=== PATIENT | female | born 1955 | race Caucasian/White ===

== ENCOUNTER → 2023-05-03 | Outpatient (CLI) | payer OTHER, SELFPAY ==
--- NOTE | 2023-05-03 08:11 | CR.HP_ITS ---
CR - History & Physical - General Arrival date:: 05/03/23 Arrival time:: 08:05 Date of Referral:: 04/21/23 Date of CR Evaluation:: 05/03/23 Referring Physician: Dr. Lenny GRACE-Radha Primary Diagnosis: STEMI, PCI w/coroanry stenting - History of Present Cardiac Event Onset Date: Enter Onset Date of cardiac illnesses in Comment field below Acute Myocardial Infarction within 12 months:: Yes - ST elevated myocardial infarction PTCA or coronary stenting:: Yes - PCI w/placement of coronary stent Vessel: Stent was placed in the LAD Type of Symptoms:: Tightness through the shoulders and upper back and down the arm to the elbow similar to muscle spasms would not let up, thought related to the herniated cervical disc. Interventions with present event:: Drove self-to the emergency room Were there any complications?: Pericardial effusion, cardiac carditis - Sleep Disorder Evaluation Hx of Sleep Apnea: Yes Do you snore loudly (louder than talking or can be heard through closed doors)?: Yes - test ed at [facility] supposed to use CPAP but is not using it Do you often feel tired/ fatigued/ sleepy during daytime?: Yes Has anyone observed you stop breathing during sleep?: Yes - sleep report shoed apnea 100 times History of Hypertension (for STOP score): Yes STOP Results: Positive - Medications Home Medications: Ambulatory Orders Medication Instructions Recorded aspirin 81 mg tablet,delayed 81 mg PO DAILY 05/03/23 release carvedilol 6.25 mg tablet (Coreg) 6.25 mg PO BID 05/03/23 clopidogrel 75 mg tablet (Plavix) 75 mg PO DAILY 05/03/23 colchicine 0.6 mg tablet 0.6 mg PO BID 05/03/23 dapagliflozin propanediol 5 mg 5 mg PO DAILY 05/03/23 tablet (Farxiga) fexofenadine 180 mg tablet 180 mg PO Q24H 05/03/23 insulin aspart U-100 100 unit/mL 15 unit subcut TID 05/03/23 subcutaneous solution insulin degludec 100 unit/mL 50 unit subcut DAILY 05/03/23 subcutaneous solution (Tresiba U-100 Insulin) nitroglycerin 0.4 mg sublingual 0.4 mg sublingual Q5M PRN Chest 05/03/23 tablet Pain pantoprazole 40 mg tablet,delayed 40 mg PO DAILY 05/03/23 release (Protonix) rosuvastatin 40 mg tablet (Crestor) 40 mg PO DAILY 05/03/23 sacubitril 24 mg-valsartan 26 mg 1 tab PO BID 05/03/23 tablet (Entresto) spironolactone 25 mg tablet 25 mg PO DAILY 05/03/23 (Aldactone) - Allergies Allergies/Adverse Reactions: Allergies animal dander Allergy (Verified 05/03/23 08:24) Other Corticosteroids (Glucocorticoids) [steroids] Allergy (Verified 05/03/23 08:24) Hives sumatriptan [From Imitrex] Allergy (Verified 05/03/23 08:24) Pain in joints Advanced Directives - Advanced Directives Power of Data Analytics Chief Scientist: No Living Will: No Advance Directives Information Provided: Yes Advance Directives on File: No DNR Order?:: No - MOLST See MOLST form: No Past Medical History - Covid-19 Screening Fever: No - hysterectomy but still has ovoaries experiences hot flashes then coldness Unexplained muscle aches: No Current respiratory symptoms: Yes - chronic rhinitis from allergies Upper respiratory infections symptoms: No Gastro-intestinal symptoms: No Gec-Zhlf-Ennabm symptoms: No Has tested positive for COVID-19 in last 30 days: No Date of testin05/03/23 - fully vaccinated Had contact w/person w/symptoms or Covid-19 (+) last 14 days: No Has High Risk Exposures ID'd by Health dept/Inf Control team: No 65 years or older:: Yes Lives in Assisted Living facility:: No Has a chronic lung disease or moderate to severe asthma:: No Has a serious heart condition:: No Immunocompromised:: No Severely obese (Body Mass Index of 40 or higher):: No Diabetic:: Yes Has chronic kidney disease undergoing dialysis:: No Has liver disease:: No - Past Medical Illness Medical History: Past Medical History (Last Updated 05/03/23 @ 08:46 by Oren Ramos, HANDICRAFTS TEACHER, JAVA WEB DEVELOPER, BS) Acute systolic heart failure I50.21 Arthritis M19.90 pretty bad in the back and cervical area Asthma J45.909 Chronic migraine Degenerative disc disease, cervical M50.30 Dyslipidemia E78.5 FH: cholecystectomy Z83.79 Herniated disc, cervical M50.20 History of placement of stent in LAD coronary artery Z95.5 Hypertension I10 Non-STEMI (non-ST elevated myocardial infarction) I21.4 Obstructive sleep apnea on CPAP G47.33 Pericardial effusion I31.39 Thyroid nodule E04.1 Type II diabetes mellitus E11.9 - Past Surgical History Surgical History: Past Surgical History (Last Updated 05/03/23 @ 08:46 by Oren Ramos CRT, JAVA WEB DEVELOPER, BS) H/O vaginal hysterectomy Z90.710 History of adenoidectomy Z90.89 History of appendectomy Z90.49 History of tonsillectomy Z90.89 - Family History Summary Family History: Family History (Last Updated 05/03/23 @ 08:46 by Oren Ramos CRT, JAVA WEB DEVELOPER, BS) Other CAD (coronary artery disease) Social History - Smoking History Smoking Status: Never smoker - Alcohol Use Alcohol Usage: No - Substance Abuse Hx Substance Use: No - Occupation Occupation (List type of work in comments):: 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[employer] - Hobbies, Recreation, Social Activities Hobbies: Other - teaching is real natalia Recreational Activities: I can hardly do any recreational activities - feel out of breath all the time Social Environment - Status Marital Status: - Current Living Arrangements Living Environment:: Spouse - Children How many children do you have?: 2 Do any of your children live nearby?: Yes - 1 does live close, other in [place] - Safety Do you feel safe in your surroundings?: Yes - Assistance Do you need any assistance at home?: no Review of Systems - Review of Systems Hints: Right click = Denies (Slash). Left click = Reports (Quileute) Review of Present Symptoms: Reports: Shortness of Breath at Rest, Shortness of Breath with Exertion, Angina - unsure very similar to the pain have in the past related to the cervial herniated disc and arthritis in shoulder area., Dizziness/Lightheadedness - occasionally, as day wears on. PCP feel sblood pressure is to low., Fatigue, Appetite - Normal - starved all the time, Appetite - Special Diet - Heart and diabetic diet but does not follow them well.. Denies: Heart Arrhythmia/Irregularities, Sleep - Normal - Sleeping more hours at night than normal., Sexual Changes - Pain Is Patient Pain Free?: No Pain Location: neck, back - Spinal surgery discetomy in 2012 in lower back Pain Level: 6/10 - in shoulders. Sleeps with cold pack on nechk and shoulders due to the pain. Risk Factor Assessment - Vital Signs Temperature: 97.7 F Respiratory Rate: 14 Pulse Ox: 96 Blood Pressure: 160/85 - Pulse Pulse Rate: 87 Pulse Rhythm: Regular - Hypertension How long have you been treated?: Since the 1970s for the migraines, then changed medications after the OR. On medication(s)?: yes Blood Pressure Sitting - Left Arm: 160/85 - Stress Stress: Recent - Blood Cholesterol/Lipids Total Cholesterol (mg/dL) Goal = less than 200 mg/dL: 141 HDL Cholesterol (mg/dL) Goal = less than 40 mg/dL: 30 LDL Cholesterol (mg/dL) Goal = less than 70 mg/dL: 293 Triglycerides (mg/dL) Goal = less than 150 mg/dL: 114 - Diabetes Diabetic History: Type II, Medication Dependent, Insulin Dependent Nutrition Referral for Diabetes: Yes - Obesity Height: 5 ft 6 in Weight:: 192 lb Weight in Pounds: 192.0 lbs Weight Source: Stated by Patient Body Mass Index (BMI): 30.9 Nutritional Referral for Obesity: Yes - Physical Inactivity Physical Inactivity: Recreational activity - Risk Stratification Risk Guidelines: Lowest Risk: Risk Factor for Smoking, Risk Factor for Dyslipidemia, Highest Risk: Risk Factor for Diabetes - 217; A1c 9.2, Risk Factor for Obesity - 30, Risk Factor for Hypertension - 160/85 - Family History Family History: Family History (Last Updated 05/03/23 @ 08:46 by Oren Ramos, HANDICRAFTS TEACHER, JAVA WEB DEVELOPER, BS) Other CAD (coronary artery disease) Motivation - Motivation to Participate On a scale of 1 to 10, how prepared are you to commit to attending program?: 9 What do you see as barriers to successfully being able to complete the program?: spinal problems What do you see as the benefits of succesfully completing the program? In other words, what do you hope to get out of participating in the program?: regain strength, so dance in the classroom Are there issues you are dealing with that will interfere with completing the program?: spinal pain, cervical pain Do you have a spouse or signficant other, family or friends who will help support you to complete the program?: Yes; partner is very supportive.
--- NOTE | 2023-05-03 08:12 | PCM.CR.ITP ---
Diagnosis - General Information Admitting Diagnosis: STEMI, PCI w/coroanry stenting Secondary Diagnosis: DM Type II, HTN, HLD, Acute systolic HF, pericardial effusuion, asthma Personal Learning Style:: Audio/Visual Barriers to Learning: No Barriers Stage of change r/t lifestyle modifications:: Action Gave educational material for:: Treating Heart Disease, Emotions & Heart Disease, Stress Management & Relaxation, Sleep Disorders & Heart Disease, How The Heart Works, What it means to have Heart Disease, How Coronary Artery Disease is Diagnosed, Heart Procedures, What Heart Medications Do, Risk Factors & Modifications, Living an Active Life, Nutrition - Education/Goals Individual Counseling: Initial Assessment: Abnormal Cholesterol Levels, High Blood Pressure, Overweight/Obesity, Diabetes, Low HDL <40/Males or <50/Females - HDL 30 Cardiac Rehabilitation Goals: 1. Maintain the individual as the primary focus of care. 2. To improve the patient's quality of life. 3. Identification of cardiac risk factors and provide cardiac risk factor management. 4. Enhance the psychosocial status of the patient. 5. Reconditioning enough to allow the patient to resume customary activities. 6. Control symptoms of cardiac disease Personal Goals: Initial Assessment: Improve energy level, Participate in home exercise program, Get back to work, or to resume activities faster, Improve knowledge of cardiac disease, Improve muscle strength and endurance, Improve diet and eating habits (eat healthier), Control risk factors (learn risk factor modification) Scale for measuring improvement of personal goals: Enter appropriate number in Comments. 2 = Unchanged. 3 = Slightly Better. 4 = Moderate Improvement. 5 = Met my Goal - Diagnosis & Disease Process Outcomes/Goals: Pt IDs own risk factors & lifestyle modifications by Session 10, Verbalizes symptoms of angina & response by session 3., Pt independently manages Plan/Interventions: Assist Pt to ID & engage in lifestyle modification to reduce CVD risk, Instruct on individual risk factors, Review symptoms of angina & emergency actions, Review secondary diagnosis & identify educational needs. - Safety Referral to Physical Therapy: No Referral to [facility] Case Management: No Fall Risk Assessed:: Yes Assistive Devices:: None Exercise - Initial Assessment - Visit Date of Eval: 05/03/23 Session #:: 0 - Pre-cardaic rehab evaluation Mets: Pre-: >7 METS for 30 minutes by discharge - Physician Prescribed Exercise Modalities: Treadmill, Airdyne, NuStep Frequency: 3x/week for 12 weeks [36 sessions] Intensity: 60-80% of age predicted maximum heart rate reserve Duration: 30 - 45 minutes Current METSs:: 3.0 Target Heart Rate:: 100-115 Resting Blood Pressure: 160/85 EKG Type: Normal Sinus Rhythm Current Physical Activity or Exercising minutes: Physically active daily w/no regular exercise - Outcomes & Goals Goals:: Verbalizes understanding of THR, RPE & goal METS by session 6, Documents in home exercise log/reports 30 min aerobic 5 day/wk by DC, Demonstrates accurate pulse taking by DC - Intervention & Plan Exercise Program Goals: Instruct on personal THR & RPE, Instruct on MET level & personal MET goal, Show patient to take own pulse /validate performance until accurate, Instruct on home exercise - Physical Activity Home Exercise Physical Activity - Home Exercise: Safe Exercise, Warm-up, Self-monitoring, Cool-Down, Home Exercise > 30 min Daily, Sitting Time <3 hours/daily - Outcomes & Goals Outcomes/Goals: Demonstrates correct Warm-up/exercise Cool-Down (S3) if = 2.5 METs, Verbalizes symptoms of exercise intolerance by Session 3 (S3), Demonstrate safe equipment use (S3) & follows exercise prescrition (6) - Intervention & Plan Plan/Intervention: Instruct warm-up & cool-down if exercising at > 2 METs, Instruct on symptoms of exercise intolerance & actions to take, Instruct & monitor on saf, Assess intial functional capacity & safety risk Nutrition - Initial Assessment - Program Goals Nutrition Program Goals: LDL <100 optimal. 100 - 129 Near optimal. 130 - 159 Borderline High. 160 - 189 High. Total Cholesterol <200 desirable. 200 - 239 Borderline High. >/= 240 High. HDL < 40 Low >/=60 High. Triglycerides <150 desirable. <199 optimal. VlDL 5 - 40. HgbA1C <7%. BMI <25 Patient has diagnosis of Hyperlipidemia (ICD E78)?: Yes - Visit Date of Assessment:: 05/03/23 Session #:: 0 - Pre-cardai rehab evaluation - Cholesterol/Lipids (Other Core Measures) Triglycerides (mg/dL): 114 Total Cholesterol (mg/dL): 141 LDL Cholesterol (mg/dL): 293 HDL Cholesterol (mg/dL): 30 Determine presence & major risk factors that modify LDL goal: Hypertension or hypertensive medication, Low HDL cholesterol <40 mg/dL*, Family history of premature CHD in Male < 55 years: female <65 yearsFa, Age men > 45 years; women >/= 55 years Outcomes/Goals: Pt IDs own risk factors & lifestyle modifications by Session 10, Verbalizes symptoms of angina & response by session 3., Pt independently manages Intervention/Plan: Instruct on personal lipid levels & lipid goals/NCEP guidelines, Instruct on cholesterol - Diabetes (Other Core Measures) Diabetes Type: Diagnosis Type II ICD-10 E11 Fasting blood glucose:: 217 Hgb A1C (4.2 - 6.3): 9.2 Insulin dependent injection/pump?: Yes Non-Insulin Dependent?: Yes Do you monitor your blood sugar at home?: Yes Referral to Diabetic Clinic:: Yes Outcomes/Goals:: Able to state symptoms of, Able to state, Able to state Intervention/Plan:: Instruct on, Refer to, Instruct on - Weight Mgt (Other Care) Not Applicable: No Height: 5 ft 6 in Weight:: 192 lb BMI: 30.9 Diagnosis Overweight/Obesity BMI> 30% ICD-10 E66: Yes Diagnosis High BMI/Morbid Obesity BMI> 35% ICD-10 Z68: No Outcomes/Goals: Pt sets, maintains & shows weight loss goal & trend during rehab Intervention/Plan: Instruct on ideal BMI & set weight loss goal w/patient, Assist pt to ID & incorporate diet changes for weight loss by S9, Refer to Structured Weight Loss program as appropriate, Encourage goal of using 250-300dcal per session for weight loss - Healthy Eating Habits Will attend diet classes:: Yes Outcomes/Goals:: Consume diet rich in vegs,fruits,whole grain/high fiber,fish,lean meat, Limit sat/trans fats,cholesterol & added salts & sugars Intervention/Plan:: Assess current eating habits - Education Gave educational materials for:: Signs & symptoms of hypoglycemia, Signs & symptoms of hyperglycemia, Relate diabetes to coronary artery disease, Healthy eating Nutrition - 30-Day Assessment Nutrition - 60-Day Assessment Nutrition - 90-Day Assessment Nutrition - Final Assessment Core - Initial Assessment - Visit Date of Eval: 05/03/23 Session #:: 0 - Pre-cardiac rehabilitation - Medication Compliance Preventative Medication(s):: Aspirin, Clopidogrel/P2Y12 inhibit, Ticagrelor/P2Y12 inhibitor, Statin/lipid, Beta gerson H/O mental health issues: depression, anxiety, or addiction?: No Doesn?t believe in the benefits of treatment?: No Believes medications are unnecessary or harmful?: No Has a concern about medication side effects?: No Expresses concern over the cost of medications?: No Outcomes/Goals: Verbalizes medications,desired effect & common side effects @ DC, Pt self-reports following medication regimen, Keeps card in wallet w/medications listed by DC Interventions/plans: Instruct on medication effects & side effects, Review medication list w/patient every two weeks, Instruct importance of taking meds as ordered & assist problem solving - Tobacco Use Tobacco Use: Non-smoker - Hypertension Hypertension Diagnosis:: Hypertension ICD-10 I10 Resting Blood Pressure:: 160/85 [place] [employer] Hypertension Guidelines: [place] [employer] Hypertension Guidelines. Normal BP Less than 120/80. Elevated BP 120/80. Hypertension Stage 1: BP 130-139/80-89. Hypertesnion Stage 2: BP 140 or higher/90 or higher. Hypertension Crisis: BP higher than 180/120 Outcomes/Goals: Able to verbalize/achieve optimal blood pressure <130/80, Incorporates diet changes & exercise for blood pressure control by DC Interventions/plan: Instruct on optimal blood pressure, hypertension & medications, Instruct on effects of sodium, alcohol, stress, exercise &hypertension - Tobacco Cessation Referral Smoking Cessation Referral:: No Individual Education/Counseling:: No Education Schedule Given:: Yes Core - 30-Day Assessment Core - 60-Day Assessment Core - 90 Day Assessment Core - Final Assessment Psychosocial - Initial Assess - VIsit Date of Eval: 05/03/23 Session #:: 0 Not Applicable: Yes History of previous Mental disease:: No - Psychosocial Test Tool Used:: [employer] QOL Cardiac, PHQ-9 Questionnaire phq-9 Severity: Severity. 1-4 Minimal Depression. 5-9 Mild Depression. 10-14 Moderate Depression. 15-19 Moderately Sever Depression. 20-27 Severe Depression. Rule: - Referral to Behavioral Health PS - Interventions: Yes Attend Stress Management Classes, No Referral to Behavioral Health if PHQ-9 score >9:, No Referral to [facility], No Referral to Physician if PHQ-9 if score is 5-9: - Outcomes/Goals: See list Psychosocial Outcomes/Goals:: ID's personal stressors & 2 strategies to manage stress by discharge - Intervention/Plan: See List Interventions/Plan:: Assess stressors,coping strategies & signs of derpression on admission, Instruct/assist pt to develop coping & personal stress Mgt strategies, Instruct patient to recognize signs & symptoms of depression, Instruct patient to recog Psychosocial - 30-Day Assess Psychosocial - 60-Day Assess Psychosocial - 90-Day Assess Psychosocial - Final Assessmen Patient Health Questionnaire Initial Assessment 1. Little interest or pleasure in doing things: Nearly every day 2. Feeling down, depressed, or hopeless: Several days 3. Trouble falling or staying asleep, or sleeping too much: More than half the days 4. Feeling tired or having little energy: Nearly every day 5. Poor appetite or overeating: Nearly every day 7. Trouble concentrating on things, such as reading the newspaper or watching television: Not at all 8. Moving or speaking so slowly that other people could have noticed. Or the opposite - being so fidgety or restless that you have been moving around a lot more than usual: Not at all How difficult have these problems made it for you to do your work, take care of things at home, or get along with other people?: Very difficult Total Score: 12 GIOVANY-Q SV Test - Statements CAD is a disease of the arteries in the heart: False Examples of risk factors for heart disease: True Angina is chest pain or discomfort: I Don't Know The benefits of resistance training include: True Eating more meat and dairy products: False Anti-platelet medications such as aspirin are important: I Don't Know The only effective way to manage stress: False An exercise warm-up slowly increases heart rate: I Don't Know Prepared, processed foods usually have high sodium: True Depression is common after a heart attack: True The statin medications lower cholesterol: I Don't Know To control blood pressure, lower the amount of sodium: True If someone gets chest discomfort during walking: False Transfats are partially hydrogenated vegetable oils: True Sleep apnea that is not treated increases the risk: False To control cholesterol, one should become a vegetarian: False Someone knows if he/she is exercising at the right level: True Diabetes cannot be prevented with exercise & health eating: False Stress is a large risk for heart attack: True A diet that can help lower blood pressure is rich in: True - Total Score Total Correct Responses: 16 Self-Efficacy Initial Assessment We would like to know how confident you are in doing certain activities. Please select your confidence level for:: Select your confidence level for the following using the scale 1-10 where 1 is not at all confident and 10 is totally confident. Your score is the average of all 6 responses. Fatigue: How confident are you that you can keep the fatigue caused by your disease from interfering with the things you want to do? Select Number: 7 Physical Discomfort or Pain: How confident are you that you can keep the physical discomfort or pain of your disease from interfering with the things you want to do? Select Number: 4 Emotional Distress: How confident are you that you can keep the emotional distress caused by your disease from interfering with the things you want to do? Select Number: 7 Other Symptoms or Health Problems: How confident are you that you can keep other symptoms or health problems from interfering with the things you want to do? Select Number: 3 Different Tasks and Activities: How confident are you that you can do the different tasks and activities needed to manage your health condition so as to reduce your need to see a doctor? Select Number: 4 Medication: How confident are you that you can do things other than just taking medication to reduce how much your illness affects your everyday life? Select Number: 4 Total Score:: 4 Nutrition Survey - Nutrition Survey Initial Have you lost >10 lbs over the past 2 months without trying?: No Are you following a special diet at home for diabetes, low fat, or low salt?: Yes Are you interested in meeting with a dietitian for help understanding your diet?: Yes Do you eat less than 3 meals a day?: No Do you eat fatty meats (jameson, sausage, ribs, etc), fried foods, desserts, large amounts of salad dressings, margarine, butter, or cheese most days?: Yes Do you have food allergies? [Enter types in comment field]: No Do you eat in restaurants more than 3 times a week?: Yes Do you season food with salt, seasoning salt, or garlic salt?: No Do you used canned, boxed, frozen meals, or soups, seasoning packets?: No Total Score:: 4
[2023-05-03 08:55] VITALS: BP 160/85; PULSE 87; RESP 14; TEMP 36.5; O2SAT 96; BMI 30.9
[2023-05-03 09:31] VITALS: BP 160/85; BMI 30.9
== END | disposition home or self-care (01) ==
LOC: CR 08:07
PROVIDERS: PCP Preventive Medicine Occupational Medicine; Referring Provider Internal Medicine Interventional Cardiology; Visit Provider Internal Medicine Interventional Cardiology
DX: Z95.5 Presence of coronary angioplasty implant and graft (principal)

== ENCOUNTER 2023-05-14 10:30 | Outpatient (RCR) | payer OTHER, SELFPAY ==
[2023-05-03 09:31] VITALS: BMI 30.9
== END 2023-05-14 23:59 ==
LOC: CR 10:30
PROVIDERS: PCP Preventive Medicine Occupational Medicine; Referring Provider Internal Medicine Interventional Cardiology; Visit Provider Internal Medicine Interventional Cardiology
DX: Z95.5 Presence of coronary angioplasty implant and graft (principal)
CPT/HCPCS: 93798

== ENCOUNTER 2023-06-14 10:30 | Outpatient (RCR) | payer OTHER, SELFPAY ==
[2023-05-03 09:31] VITALS: BMI 30.9
--- NOTE | 2023-06-02 10:22 | CR.ITP_ITS ---
Exercise - Initial Assessment Visit Session #:: 12 Nutrition - Initial Assessment Weight Mgt (Other Care) Height: 5 ft 6 in Weight:: 190 lb BMI: 30.7 Psychosocial - Initial Assess Target Goals Target Goals Patient Health Questionnaire PHQ-9 Screening 30-Day Re-eval Assessment: 1. Little interest or pleasure in doing things: Nearly every day 2. Feeling down, depressed, or hopeless: Several days 3. Trouble falling or staying asleep, or sleeping too much: More than half the days 4. Feeling tired or having little energy: Nearly every day 5. Poor appetite or overeating: Nearly every day 8. Moving or speaking so slowly that other people could have noticed. Or the opposite - being so fidgety or restless that you have been moving around a lot more than usual: Not at all How difficult have these problems made it for you to do your work, take care of things at home, or get along with other people?: Very difficult Total Score: 12 Self-Efficacy 6-Item Scale 30-Day Re-eval Assessment: We would like to know how confident you are in doing certain activities. Please select your confidence level for: Fatigue Select Number: 7 Physical Discomfort or Pain Select Number: 4 Emotional Distress Select Number: 7 Other Symptoms or Health Problems Select Number: 3 Different Tasks and Activities Select Number: 4 Medication Select Number: 4 Total Score:: 4 Nutrition Survey Nutrition Survey Instructions Scoring Instructions Exercise - 30-day Assessment Visit Date of Eval: 06/02/23 Session #:: 12 Physician Prescribed Exercise Modalities: Treadmill, Airdyne and NuStep Frequency: 3x/week for 12 weeks [36 sessions] Intensity: 60-80% of age predicted maximum heart rate reserve Duration: 30 - 45 minutes Current METSs:: 5 Target Heart Rate:: 115-130 Current RPE:: 12-15 Maximum Excercise HR:: 125 Resting Blood Pressure: 106/72 Maximum Exercise Blood Pressure: 170/82 EKG Type: SR to ST with rare pvc's Outcomes & Goals Goals:: Verbalizes understanding of THR, RPE & goal METS by session 6, Documents in home exercise log/reports 30 min aerobic 5 day/wk by DC, Demonstrates accurate pulse taking by DC and Other additional outcome/goals: see below Intervention & Plan Exercise Program Goals: Instruct on personal THR & RPE, Instruct on MET level & personal MET goal, Show patient to take own pulse /validate performance until accurate, Instruct on home exercise and Other additional plan/int 30-day Reassessments 30 day Reassessments:: Progressing Reassessment Notes & Comments:: THR explained Physical Activity Home Exercise Physical Activity - Home Exercise: Safe Exercise, Warm-up, Self-monitoring, Cool-Down, Home Exercise > 30 min Daily and Sitting Time <3 hours/daily Outcomes & Goals Outcomes/Goals: Demonstrates correct Warm-up/exercise Cool-Down (S3) if = 2.5 METs, Verbalizes symptoms of exercise intolerance by Session 3 (S3), Demonstrate safe equipment use (S3) & follows exercise prescrition (6) and Other: See below Intervention & Plan Plan/Intervention: Instruct warm-up & cool-down if exercising at > 2 METs, Instruct on symptoms of exercise intolerance & actions to take, Instruct & monitor on saf, Assess intial functional capacity & safety risk and Other See below 30-day Reassessments 30 day Reassessments:: Progressing Reassessment Notes & Comments:: cool down encouraged Nutrition - 30-Day Assessment Program Goals Nutrition Program Goals Patient has diagnosis of Hyperlipidemia (ICD E78)?: Yes Visit Date of Eval: 06/02/23 Session #:: 12 Cholesterol/Lipids (Other Core Measures) Determine presence & major risk factors that modify LDL goal: Hypertension or hypertensive medication, Low HDL cholesterol <40 mg/dL*, Family history of premature CHD in Male < 55 years: female <65 yearsFa and Age men > 45 years; women >/= 55 years Outcomes/Goals: Pt IDs own risk factors & lifestyle modifications by Session 10, Verbalizes symptoms of angina & response by session 3., Pt independently manages and Other Additional Outcomes/Goals: Intervention/Plan: Advocate for lipid panel cholesterol medication if applicable, Instruct on personal lipid levels & lipid goals/NCEP guidelines, Instruct on cholesterol and Other additional plan/int 30-day Reassessments:: Progressing Reassessment Notes & Comments:: pt is 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 to see cathode ray tube assembler Diabetes (Other Core Measures) Diabetes Type: Diagnosis Type II ICD-10 E11 Fasting blood glucose:: 127 Insulin dependent injection/pump?: Yes Non-Insulin Dependent?: Yes Do you monitor your blood sugar at home?: Yes Referral to Diabetic Clinic:: Yes Outcomes/Goals:: Able to state symptoms of, Able to state, Able to state and Other additional Intervention/Plan:: Instruct on, Refer to, Instruct on and Other 30-day Reassessments:: Progressing Reassessment Notes & Comments:: pt is scheduled to see cathode ray tube assembler Weight Mgt (Other Care) Height: 5 ft 6 in Weight:: 190 lb BMI: 30.7 Diagnosis Overweight/Obesity BMI> 30% ICD-10 E66: Yes Diagnosis High BMI/Morbid Obesity BMI> 35% ICD-10 Z68: No Outcomes/Goals: Pt sets, maintains & shows weight loss goal & trend during rehab and Other additional outcomes/goals Intervention/Plan: Instruct on ideal BMI & set weight loss goal w/patient, Assist pt to ID & incorporate diet changes for weight loss by S9, Refer to Structured Weight Loss program as appropriate, Encourage goal of using 250- 300dcal per session for weight loss and Other additional plan/interventions 30 day Reassessments:: Progressing Reassessment Notes & Comments:: pt is scheduled to see cathode ray tube assembler Healthy Eating Habits Will attend diet classes:: Yes Outcomes/Goals:: Consume diet rich in vegs,fruits,whole grain/high fiber,fish,lean meat, Limit sat/trans fats,cholesterol & added salts & sugars and Other additional outcome/goals: Intervention/Plan:: Assess current eating habits and Other Additional plan/interventions 30-day Reassessments:: Progressing Reassessment Notes & Comments:: pt is scheduled to see cathode ray tube assembler Nutrition - 60-Day Assessment Weight Mgt (Other Care) Height: 5 ft 6 in Weight:: 190 lb BMI: 30.7 Core - 30-Day Assessment Visit Date of Eval: 06/02/23 Session #:: 12 Medication Compliance Preventative Medication(s):: Aspirin, Clopidogrel/P2Y12 inhibit, Ticagrelor/P2Y12 inhibitor, Statin/lipid and Beta gerson H/O mental health issues: depression, anxiety, or addiction?: No Doesn?t believe in the benefits of treatment?: No Believes medications are unnecessary or harmful?: No Has a concern about medication side effects?: No Expresses concern over the cost of medications?: No Outcomes/Goals: Verbalizes medications,desired effect & common side effects @ DC, Pt self-reports following medication regimen, Keeps card in wallet w/medications listed by DC and Other additional outcome/goals: Interventions/plans: Instruct on medication effects & side effects, Review medication list w/patient every two weeks, Instruct importance of taking meds as ordered & assist problem solving and Other additional 30-day Reassessments:: Progressing Reassessment Notes & Comments:: pt is encouraged to take her meds Tobacco Use Tobacco Use: Non-smoker Hypertension Hypertension Diagnosis:: Hypertension ICD-10 I10 Resting Blood Pressure:: 106/72 [place] [employer] Hypertension Guidelines Peak Exercise Blood Pressure:: 170/82 Outcomes/Goals: Able to verbalize/achieve optimal blood pressure <130/80, Incorporates diet changes & exercise for blood pressure control by DC and Other additional outcomes/goals Interventions/plan: Instruct on optimal blood pressure, hypertension & medications, Instruct on effects of sodium, alcohol, stress, exercise &hypertension and Other additional plan/interventions 30 day Reassessments:: Progressing Reassessment Notes & Comments:: pt is encouraged to take her meds Tobacco Cessation Referral Smoking Cessation Referral:: No Individual Education/Counseling:: No Education Schedule Given:: Yes Psychosocial - 30-Day Assess VIsit Date of Eval: 06/02/23 Session #:: 12 History of previous Mental disease:: No Target Goals Target Goals Psychosocial - 60-Day Assess Target Goals Target Goals Psychosocial - 90-Day Assess Target Goals Target Goals Psychosocial - Final Assessmen Target Goals Target Goals Nutrition - 90-Day Assessment Weight Mgt (Other Care) Height: 5 ft 6 in Weight:: 190 lb BMI: 30.7 Nutrition - Final Assessment Weight Mgt (Other Care) Height: 5 ft 6 in Weight:: 190 lb BMI: 30.7
[2023-06-02 10:26] VITALS: BP 106/72
[2023-06-02 10:39] VITALS: BP 106/72; BMI 30.7
== END 2023-06-14 23:59 ==
LOC: CR 10:30
PROVIDERS: PCP Preventive Medicine Occupational Medicine; Referring Provider Internal Medicine Interventional Cardiology; Visit Provider Internal Medicine Interventional Cardiology
DX: Z95.5 Presence of coronary angioplasty implant and graft (principal); I25.2 Old myocardial infarction
CPT/HCPCS: 93798

== ENCOUNTER 2023-06-23 12:04 | Outpatient (RCR) | payer OTHER, SELFPAY ==
[2023-05-03 09:31] VITALS: BMI 30.9
[2023-06-02 10:39] VITALS: BMI 30.7
== END 2023-07-15 23:59 ==
LOC: NS 12:04
PROVIDERS: PCP Preventive Medicine Occupational Medicine; Referring Provider Internal Medicine Cardiovascular Disease; Visit Provider Internal Medicine Cardiovascular Disease
DX: Z71.3 Dietary counseling and surveillance (principal); E78.5 Hyperlipidemia, unspecified; E11.9 Type 2 diabetes mellitus without complications; I10 Essential (primary) hypertension
CPT/HCPCS: 97802

== ENCOUNTER 2023-07-14 15:45 | Outpatient (RCR) | payer OTHER, SELFPAY ==
[2023-06-02 10:39] VITALS: BMI 30.7
[2023-06-15 00:22] VITALS: BP 106/72
--- NOTE | 2023-07-02 11:14 | PCM.CR.ITP ---
Nutrition - Initial Assessment Weight Mgt (Other Care) Height: 5 ft 6 in Weight:: 188 lb BMI: 30.3 Psychosocial - Initial Assess Target Goals Target Goals Patient Health Questionnaire PHQ-9 Screening 60-Day Re-eval Assessment: 1. Little interest or pleasure in doing things: Nearly every day 2. Feeling down, depressed, or hopeless: Several days 3. Trouble falling or staying asleep, or sleeping too much: More than half the days 4. Feeling tired or having little energy: Nearly every day 5. Poor appetite or overeating: Nearly every day 8. Moving or speaking so slowly that other people could have noticed. Or the opposite - being so fidgety or restless that you have been moving around a lot more than usual: Not at all Total Score: 12 Self-Efficacy 6-Item Scale 60-Day Re-eval Assessment: We would like to know how confident you are in doing certain activities. Please select your confidence level for: Fatigue Select Number: 7 Physical Discomfort or Pain Select Number: 4 Emotional Distress Select Number: 7 Other Symptoms or Health Problems Select Number: 3 Different Tasks and Activities Select Number: 4 Medication Select Number: 4 Total Score:: 4 Nutrition Survey Nutrition Survey Instructions Scoring Instructions Exercise - 60-day Assessment Visit Date of Eval: 07/02/23 Session #:: 25 Physician Prescribed Exercise Modalities: Treadmill, Airdyne, NuStep and Lateral [employer] Strategy Planner Frequency: 3x/week for 12 weeks [36 sessions] Intensity: 60-80% of age predicted maximum heart rate reserve Duration: 30 - 45 minutes Current METSs:: 5 Target Heart Rate:: 115-130 Current RPE:: 12-13 Maximum Excercise HR:: 117 Resting Blood Pressure: 110/64 Maximum Exercise Blood Pressure: 160/90 EKG Type: SR TO ST W/RARE PVC'S AND PAC'S Outcomes & Goals Goals:: Verbalizes understanding of THR, RPE & goal METS by session 6, Documents in home exercise log/reports 30 min aerobic 5 day/wk by DC, Demonstrates accurate pulse taking by DC and Other additional outcome/goals: see below Intervention & Plan Exercise Program Goals: Instruct on personal THR & RPE, Instruct on MET level & personal MET goal, Show patient to take own pulse /validate performance until accurate, Instruct on home exercise and Other additional plan/int 30-day Reassessments 30 day Reassessments:: Progressing Reassessment Notes & Comments:: THR explained Physical Activity Home Exercise Physical Activity - Home Exercise: Safe Exercise, Warm-up, Self-monitoring, Cool-Down, Home Exercise > 30 min Daily and Sitting Time <3 hours/daily Outcomes & Goals Outcomes/Goals: Demonstrates correct Warm-up/exercise Cool-Down (S3) if = 2.5 METs, Verbalizes symptoms of exercise intolerance by Session 3 (S3), Demonstrate safe equipment use (S3) & follows exercise prescrition (6) and Other: See below Intervention & Plan Plan/Intervention: Instruct warm-up & cool-down if exercising at > 2 METs, Instruct on symptoms of exercise intolerance & actions to take, Instruct & monitor on saf, Assess intial functional capacity & safety risk and Other See below 30-day Reassessments 30 day Reassessments:: Progressing Reassessment Notes & Comments:: cool down encouraged Nutrition - 30-Day Assessment Weight Mgt (Other Care) Height: 5 ft 6 in Weight:: 188 lb BMI: 30.3 Nutrition - 60-Day Assessment Program Goals Nutrition Program Goals Patient has diagnosis of Hyperlipidemia (ICD E78)?: Yes Visit Date of Eval: 07/02/23 Session #:: 25 Cholesterol/Lipids (Other Core Measures) Determine presence & major risk factors that modify LDL goal: Hypertension or hypertensive medication, Low HDL cholesterol <40 mg/dL*, Family history of premature CHD in Male < 55 years: female <65 yearsFa and Age men > 45 years; women >/= 55 years Outcomes/Goals: Pt IDs own risk factors & lifestyle modifications by Session 10, Verbalizes symptoms of angina & response by session 3., Pt independently manages and Other Additional Outcomes/Goals: Intervention/Plan: Advocate for lipid panel cholesterol medication if applicable, Instruct on personal lipid levels & lipid goals/NCEP guidelines, Instruct on cholesterol and Other additional plan/int Referral to dietitian:: No 30-day Reassessments:: Progressing Reassessment Notes & Comments:: pt has met with dietitian Diabetes (Other Core Measures) Diabetes Type: Diagnosis Type II ICD-10 E11 Insulin dependent injection/pump?: Yes Non-Insulin Dependent?: Yes Do you monitor your blood sugar at home?: Yes Referral to Diabetic Clinic:: Yes Outcomes/Goals:: Able to state symptoms of, Able to state, Able to state and Other additional Intervention/Plan:: Instruct on, Refer to, Instruct on and Other 30-day Reassessments:: Progressing Reassessment Notes & Comments:: pt has met with dietitian Weight Mgt (Other Care) Height: 5 ft 6 in Weight:: 188 lb BMI: 30.3 Diagnosis Overweight/Obesity BMI> 30% ICD-10 E66: Yes Diagnosis High BMI/Morbid Obesity BMI> 35% ICD-10 Z68: No Outcomes/Goals: Pt sets, maintains & shows weight loss goal & trend during rehab and Other additional outcomes/goals Intervention/Plan: Instruct on ideal BMI & set weight loss goal w/patient, Assist pt to ID & incorporate diet changes for weight loss by S9, Refer to Structured Weight Loss program as appropriate, Encourage goal of using 250-300dcal per session for weight loss and Other additional plan/interventions 30 day Reassessments:: Progressing Reassessment Notes & Comments:: pt has met with dietitian Healthy Eating Habits Will attend diet classes:: Yes Outcomes/Goals:: Consume diet rich in vegs,fruits,whole grain/high fiber,fish,lean meat, Limit sat/trans fats,cholesterol & added salts & sugars and Other additional outcome/goals: Intervention/Plan:: Assess current eating habits and Other Additional plan/interventions 30-day Reassessments:: Progressing Reassessment Notes & Comments:: pt has met with dietitian Education Gave educational materials for:: Signs & symptoms of hypoglycemia, Signs & symptoms of hyperglycemia, Relate diabetes to coronary artery disease and Healthy eating Core - 60-Day Assessment Visit Date of Eval: 07/02/23 Session #:: 25 Medication Compliance Preventative Medication(s):: Aspirin, Clopidogrel/P2Y12 inhibit, Ticagrelor/P2Y12 inhibitor, Statin/lipid and Beta gerson Doesn?t believe in the benefits of treatment?: No Believes medications are unnecessary or harmful?: No Has a concern about medication side effects?: No Expresses concern over the cost of medications?: No Outcomes/Goals: Verbalizes medications,desired effect & common side effects @ DC, Pt self-reports following medication regimen, Keeps card in wallet w/medications listed by DC and Other additional outcome/goals: Interventions/plans: Instruct on medication effects & side effects, Review medication list w/patient every two weeks, Instruct importance of taking meds as ordered & assist problem solving and Other additional 30-day Reassessments:: Progressing Reassessment Notes & Comments:: pt is taking her meds Tobacco Use Tobacco Use: Non-smoker Hypertension Hypertension Diagnosis:: Hypertension ICD-10 I10 Resting Blood Pressure:: 110/64 [place] [employer] Hypertension Guidelines Peak Exercise Blood Pressure:: 160/90 Outcomes/Goals: Able to verbalize/achieve optimal blood pressure <130/80, Incorporates diet changes & exercise for blood pressure control by DC and Other additional outcomes/goals Interventions/plan: Instruct on optimal blood pressure, hypertension & medications, Instruct on effects of sodium, alcohol, stress, exercise &hypertension and Other additional plan/interventions 30 day Reassessments:: Progressing Reassessment Notes & Comments:: pt is taking her meds Tobacco Cessation Referral Smoking Cessation Referral:: No Individual Education/Counseling:: No Education Schedule Given:: Yes Psychosocial - 30-Day Assess Target Goals Target Goals Psychosocial - 60-Day Assess VIsit Date of Eval: 07/02/23 Session #:: 25 History of previous Mental disease:: No Target Goals Target Goals Psychosocial - 90-Day Assess Target Goals Target Goals Psychosocial - Final Assessmen Target Goals Target Goals Nutrition - 90-Day Assessment Weight Mgt (Other Care) Height: 5 ft 6 in Weight:: 188 lb BMI: 30.3 Nutrition - Final Assessment Weight Mgt (Other Care) Height: 5 ft 6 in Weight:: 188 lb BMI: 30.3
[2023-07-02 11:27] VITALS: BP 110/64; BMI 30.3
== END 2023-07-15 23:59 ==
LOC: CR 15:45
PROVIDERS: PCP Preventive Medicine Occupational Medicine; Referring Provider Internal Medicine Interventional Cardiology; Visit Provider Internal Medicine Interventional Cardiology
DX: I21.4 Non-ST elevation (NSTEMI) myocardial infarction (principal); Z95.5 Presence of coronary angioplasty implant and graft
CPT/HCPCS: 93798

== ENCOUNTER 2023-08-06 15:15 | Outpatient (RCR) | payer OTHER, SELFPAY ==
[2023-07-02 11:27] VITALS: BMI 30.3
[2023-07-16 00:31] VITALS: BP 106/72; BP 110/64
== END 2023-08-14 23:59 ==
LOC: CR 15:15
PROVIDERS: PCP Preventive Medicine Occupational Medicine; Referring Provider Internal Medicine Interventional Cardiology; Visit Provider Internal Medicine Interventional Cardiology
DX: Z95.5 Presence of coronary angioplasty implant and graft (principal); I25.2 Old myocardial infarction
CPT/HCPCS: 93798

== ENCOUNTER 2025-07-08 21:49 | Emergency (ER) | payer OTHER, SELFPAY ==
[2023-07-02 11:27] VITALS: BMI 30.3
[2025-07-08 21:49] VITALS: BP 134/75; PULSE 94; RESP 20; TEMP 36.6; O2SAT 98
--- NOTE | 2025-07-08 22:20 | CT_ITS ---
PROCEDURE: ABDOMEN/PELVIS W IV CONT ONLY 07/08/2025 REASON FOR EXAM: DIARRHEA TECHNIQUE: ABDOMEN/PELVIS W IV CONT ONLY Coronal and Sagittal reconstruction series were provided. CONTRAST: Isovue 370 VOLUME: 93 mL One or more dose reduction techniques were used (e.g., Automated exposure control, adjustment of the mA and/or kV according to patient size, use of iterative reconstruction technique. RADIATION DOSE SUMMARY: CTDlvol: 9.97 and 22.13 mGy DLP: 1204.85 mGycm COMPARISON: None. FINDINGS: Lung bases: Clear. No effusions. Liver: Unremarkable. Gallbladder: Not seen. No cholecystectomy clips appreciated. Spleen: Normal. Pancreas: Atrophic, a dilated duct and punctate calcifications indicate chronic pancreatitis Adrenals: Normal. No nodules. Kidneys: Unremarkable. Normal enhancement. Parapelvic right kidney cyst. Kidney has extrarenal pelvis Bladder: Unremarkable Reproductive Organs: Appearance of hysterectomy Bowel: Sending colon is fluid-filled with mildly enhancing wall suggesting a colitis Appendix: No signs of appendicitis Lymph nodes: No lymphadenopathy. Vasculature: Mild scattered calcific plaque in the abdominal aorta. IVC and aorta are otherwise unremarkable. Peritoneum / Retroperitoneum: No free air or free fluid. Bones: No acute process. No aggressive process. CT/Abdomen/Pelvis W IV Cont ONLY IMPRESSION: Colitis. No other acute findings. Reading [id number]
--- NOTE | 2025-07-08 22:21 | EDS_ITS ---
HPI HPI - GI History of Present Illness Chief Complaint: Diarrhea Narrative Narrative: 69-year-old female past medical history of diabetes, prior cholecystectomy, appendectomy, and hysterectomy presents with diarrhea for the last 3 days. She states over the last 24 hours she has had to many episodes to count. She had elevated temperature at [facility] today. She states she went there because she wanted antibiotics but they stated to her that she needed to come to the emergency department to get laboratory work. She denies any nausea or vomiting, no exacerbating or alleviating factors. She has diffuse abdominal pain as well. No recent antibiotics. She states her symptoms began on Wednesday where within an hour she had 5 episodes of watery stool. [facility] Medical History FH: cholecystectomy Thyroid nodule Obstructive sleep apnea on CPAP Chronic migraine Herniated disc, cervical Degenerative disc disease, cervical Asthma Arthritis Pericardial effusion Dyslipidemia Hypertension Acute systolic heart failure Type II diabetes mellitus History of placement of stent in LAD coronary artery Non-STEMI (non-ST elevated myocardial infarction) Home Medications ?Medication ?Instructions ?Recorded ?Last Taken ?Type aspirin 81 mg tablet,delayed 81 mg PO DAILY 05/03/23 U nknown History release carvedilol 6.25 mg tablet (Coreg) 6.25 mg PO BID 05/03 Unknown History clopidogrel 75 mg tablet (Plavix) 75 mg PO DAILY 05/03 Unknown History colchicine 0.6 mg tablet 0.6 mg PO BID 05/03/23 Unkno wn History dapagliflozin propanediol 5 mg 5 mg PO DAILY 05/03/23 Unknown History tablet (Farxiga) fexofenadine 180 mg tablet 180 mg PO Q24H 05/03/23 Unk nown History insulin aspart U-100 100 unit/mL 15 unit subcut TID Unknown History subcutaneous solution insulin degludec 100 unit/mL 50 unit subcut DAILY 04/15 08/07 Unknown History subcutaneous solution (Tresiba U-100 Insulin) nitroglycerin 0.4 mg sublingual 0.4 mg sublingual Q5M PRN Chest 05/03/23 Unknown History tablet Pain pantoprazole 40 mg tablet,delayed 40 mg PO DAILY 05/03 Unknown History release (Protonix) rosuvastatin 40 mg tablet (Crestor) 40 mg PO DAILY Unknown History sacubitril 24 mg-valsartan 26 mg 1 tab PO BID 05/03/23 Unknown History tablet (Entresto) spironolactone 25 mg tablet 25 mg PO DAILY 05/03/23 Un known History (Aldactone) cefdinir 300 mg capsule 300 mg PO BID 10 days #20 ca ps 07/09/25 Unknown Rx metronidazole 500 mg tablet 500 mg PO TID #30 tabs Unknown Rx Allergy/AdvReac Type Severity Reaction Status Date / Time animal dander Allergy Other Verified 07/08/25 21:52 Corticosteroids Allergy Hives Verified 07/08/25 21:52 (Glucocorticoids) (steroids) sumatriptan (From Imitrex) Allergy Pain in Verified 07/08/25 21:52 joints Family History Other CAD (coronary artery disease) Surgical History H/O vaginal hysterectomy History of tonsillectomy History of appendectomy History of adenoidectomy Social History Smoking Status: Never smoker ROS ROS ED ROS Narrative Review of systems positive for diarrhea, slightly elevated temperature, no nausea or vomiting. Positive abdominal pain diffusely. No exacerbating or alleviating factors. She states she is not eating because every time she eats she has an episode of diarrhea. EXAM Physical Exam Narrative Exam Narrative: Afebrile. Vital signs noted. Nontoxic-appearing. Cardiovascular examination reveals regular rate and rhythm. Lungs clear to auscultation bilaterally. Abdomen is soft and with minimal diffuse tenderness to palpation, positive bowel sounds. Neurological examination nonfocal, nonlateralizing. Const Vital Signs: 07/08/25 21:49 07/08/25 23:47 Temperature 97.9 F 98.5 F Temperature Source Oral Oral Pulse Rate 94 87 Respiratory Rate 20 H 20 H Blood Pressure 134/75 H 92/57 L Blood Pressure Mean 94 68 Pulse Ox 98 100 Oxygen Delivery Method Room Air Room Air MDM MDM MDM Narrative Medical decision making narrative: The differential diagnosis includes but not limited to colitis versus diverticulitis versus gastroenteritis. I have lower suspicion for C. difficile as history and physical does not support this. Also in the differential would be undiagnosed ulcerative colitis versus Crohn, however she has not had problems like this previously so I have lower suspicion for these etiologies. I do feel she merits laboratory work and CT imaging. I reviewed her laboratory work and she has slight elevation/leukocytosis of 11.6 with hemoglobin slightly hemoconcentrated at 15.5, hematocrit 45.1, platelet count normal at 224. Electrolyte panel was significant for carbon dioxide low at 19.5 LFTs are grossly normal, lipase low at 11 so I doubt pancreatitis. Her stool studies are currently pending. I reviewed the radiology report of the CT of the abdomen and pelvis which does show colitis. She was given her first doses of cefdinir and Flagyl. She states she does not drink any alcohol but I advised her of the reaction of metronidazole and alcohol regardless. I feel she can be discharged safely home with follow-up to her primary care provider. She was also referred to gastroenterology. She was written prescriptions for cefdinir and Flagyl for the next 10 days. Return instructions to the emergency department were reviewed. Disposition is discharged home in stable condition. History & Record Review Discussion w/independent historian: Patient Additional record(s) reviewed:: No prior records (No prior ED visits) Lab Data Attestation: I reviewed the patient's lab results. Labs: Laboratory Results - last 24 hr 07/08/25 22:24 WBC 11.6 H RBC 5.13 Hgb 15.5 H Hct 45.1 MCV 87.9 MCH 30.2 MCHC 34.4 RDW Std Deviation 41.1 RDW Coeff of Bran 12.8 Plt Count 224 MPV 11.0 Immature Gran % (Auto) 0.300 Neut % (Auto) 66.8 Lymph % (Auto) 20.4 [place] % (Auto) 9.9 Eos % (Auto) 2.4 Baso % (Auto) 0.2 Absolute Neuts (auto) 7.8 H Absolute Lymphs (auto) 2.37 Nucleated RBC % 0 Sodium 140 Potassium 3.3 Chloride 107 Carbon Dioxide 19.5 L Anion Gap 14 BUN 16 Creatinine 0.88 Est GFR (MDRD) Non-Af 71 BUN/Creatinine Ratio 18.0 Glucose 84 Calcium 9.2 Total Bilirubin 0.82 AST 16 ALT 14 Alkaline Phosphatase 60 Total Protein 7.1 Albumin 4.1 Globulin 3.0 Albumin/Globulin Ratio 1.4 Lipase 11 L Radiography Diagnostic Testing: Clinical Impression(s) from Imaging Studies Abdomen/Pelvis CT 07/08/25 22:20 IMPRESSION: Colitis. No other acute findings. Reading Location: COUNTS INCLUDE 234 BEDS AT THE [facility] Discharge Plan Triage Chief Complaint: Diarrhea ED Provider: Declan Topete Dx/Rx/DC Orders Clinical Impression: Colitis, Diarrhea Instructions: Colitis, ED Understanding Colitis, ED Diarrhea, Unknown Cause Prescriptions: New cefdinir 300 mg capsule 300 mg PO BID 10 Days Qty: 20 0RF metronidazole 500 mg tablet 500 mg PO TID Qty: 30 0RF No Action carvedilol [Coreg] 6.25 mg Tablet 6.25 mg PO BID Rx Instructions: must administer with a meal/food clopidogrel [Plavix] 75 mg Tablet 75 mg PO DAILY fexofenadine [Angela] 180 mg Tablet 180 mg PO Q24H aspirin 81 mg Tablet,Delayed Release (Dr/Ec) 81 mg PO DAILY spironolactone [Aldactone] 25 mg Tablet 25 mg PO DAILY insulin aspart U-100 100 unit/mL Solution 15 unit SUBCUT TID pantoprazole [Protonix] 40 mg Tablet,Delayed Release (Dr/Ec) 40 mg PO DAILY nitroglycerin 0.4 mg Tablet, Sublingual 0.4 mg SUBLINGUAL Q5M PRN (Reason: Chest Pain) Rx Instructions: do not exceed 3 doses per episode colchicine 0.6 mg Tablet 0.6 mg PO BID rosuvastatin [Crestor] 40 mg Tablet 40 mg PO DAILY Farxiga 5 mg Tablet 5 mg PO DAILY Entresto 24-26 mg Tablet 1 tab PO BID insulin degludec [Tresiba U-100 Insulin] 100 unit/mL Solution 50 unit SUBCUT DAILY Primary Care Provider: Moisés Taveras Referrals: Pritesh Simmons DO [Med Staff - Active Staff] - 3-5 Days if not improving Moisés Taveras DO [Primary Care Provider] - 3-5 Days Activity Restrictions/Additional Instructions: Take antibiotics as directed. Return to the emergency department with increased pain, sustained high fever, new or worsening symptoms. Your stool cultures are pending. They can probably be checked by your primary care provider in 48 hours. Print Language: [place] Disposition Disposition: Home, Self Care
[2025-07-08] MEDS: 0.9% Normal Saline (1000mL) 1,000 ML 999 ML IV (22:32)
[2025-07-08 22:51] LABS: Hematocrit 45.1 % (37-47); Hemoglobin 15.5 g/dL (12.0-15.0); Immature Granulocytes Count 0.030 X10^3/uL (0.0-0.0); Mean Corp Hgb Conc 34.4 g/dL (32-36); Mean Corpuscular Volume 87.9 fL (81-99); Mean Platelet Vol. 11.0 fl (6.2-12.0); NRBC Flagged by Analyzer 0 % (0-5); Platelet Count 224 K/mm3 (150-450); RBC Distribution Width CV 12.8 % (11.6-14.6); RBC Distribution Width SD 41.1 fl (35.1-43.9); Red Blood Count 5.13 M/mm3 (4.2-5.4); White Blood Count 11.6 K/mm3 (4.4-11.0)
--- OUTSIDE RECORDS SUMMARY | 2025-07-08 22:52 | XMS RPT_ITS | CCD ---
Author Organization [facility] Care Team Providers Care Lockstitch Waistband Setter Name Role Phone Austin Faith (Hist) Unavailable Unava ilable Deedee Mayfield DO Unavailable David Wynn Primary Care Provider [phone] DAVID WYNN DO Primary Care Physician [phone] Vivian De La Paz PT Unavailable Unavailable Deedee Mayfield DO Unavailable David Wynn Primary Care Provider [phone] Austin Faith (Hist) Unavailable Unava ilable Deedee Mayfield DO Unavailable [phone] David Wynn Primary Care Provider [phone] DAVID WYNN DO Primary Care Physician [phone] David Wynn DO Primary Care Provider [phone] Yared Dodd Referring Unavailable Kingsley David Primary Care Unavailable Yared Dodd Attending Unavailable Yared Dodd Attending Unavailable Yared Dodd Referring Unavailable Kingsley David Primary Care Unavailable Yared Dodd Referring Unavailable Kingsley, David Primary Care Unavailable Yared Dodd Attending Unavailable Josseline, Berino Attending Unavailable Josseline, Jose Antonio Referring Unavailable Kingsley, David Primary Care Unavailable Yared Dodd Referring Unavailable Kingsley, David Primary Care Unavailable Yared Dodd Attending Unavailable Josseline, Berino Attending Unavailable Josseline, Jose Antonio Referring Unavailable Kingsley, David Primary Care Unavailable Kingsley, David Primary Care Unavailable Yared Dodd Attending Unavailable Yared Dodd Referring Unavailable Yared Dodd Referring Unavailable Kingsley David Primary Care Unavailable Yared Dodd Attending Unavailable David Wynn DO Primary Care Provider Kingsley DO, David F Primary Care Provider [phone] KINGSLEY DO, DAVID Attending Unavailable KINGSLEY DO, DAVID Primary Care Unavailable KINGSLEY DO, DAVID Attending Unavailable KINGSLEY DO, DAVID Primary Care Unavailable MAST SEWER MAINTENANCE SUPERVISOR-MANAGER NEWS, ADITYA Attending Unavailabl e KINGSLEY DO, DAVID Primary Care Unavailable Tran DODeedee Unavailable [phone] KINGSLEY, DAVID F Primary Care Unavailable LILIA OBREGON Referring Unavailable CYNDIEFORDJODY Attending Unavailable KINGSLEY, DAVID F Primary Care Unavailable WREFORDJODY Attending Unavailable KINGSLEY, DAVID F Primary Care Unavailable KINGSLEY, DAVID F Primary Care Unavailable CYNDIEFORDJODY Attending Unavailable KINGSLEY, DAVID F Primary Care Unavailable SUSHIL HAWKINS Referring Unavailable KINGSLEY, DAVID F Primary Care Unavailable TRACIE BERGER Attending Unavailable KINGSLEY, DAVID F Primary Care Unavailable NELLY BROWN Attending Unavailable Tran DO, Deedee Arndt Unavailable SHYAM SEWER MAINTENANCE SUPERVISOR-MANAGER NEWS, MAYKEL Attending Unavailab le KINGSLEY DO, DAVID Primary Care Unavailable KINGSLEY DO, DAVID Primary Care Unavailable MAST SEWER MAINTENANCE SUPERVISOR-MANAGER NEWS, ADITYA Attending Unavailabl e KINGSLEY DO, DAVID Primary Care Unavailable VIVIAN LARIOS DO Attending Unavailable RAVI SEWER MAINTENANCE SUPERVISOR-MANAGER NEWS, WESTON Attending Franklin sweet KINGSLEY DO, DAVID Primary Care Unavailable ASHVIN MUNGUIA Attending Unavailable KINGSLEY, DAVID F Primary Care Unavailable YARED DODD Attending Unavailable SELF Referring Unavailable KINGSLEY, DAVID F Primary Care Unavailable PHIL LAWTON Admitting Unavailable PHIL LAWTON Attending Unavailable PHIL LAWTON Referring Unavailable KINGSLEY, DAVID F Primary Care Unavailable SASHASANDY Admitting Unavailable SASHASANDY Attending Unavailable SANDY BAEZ M Referring Unavailable KINGSLEY, DAVID F Primary Care Unavailable PHIL LAWTON Attending Unavailable PHIL LAWTON Referring Unavailable KINGSLEY, DAVID F Primary Care Unavailable YARED DODD Referring Unavailable YARED DODD Attending Unavailable KINGSLEY, DAVID F Primary Care Unavailable MARY KATE BARBER Attending Unavailable KINGSLEY, DAVID F Primary Care Unavailable MOLLY MURRIETA Attending Unavailable KINGSLEY, DAVID F Primary Care Unavailable YARED DODD Referring Unavailable KINGSLEY, DAVID Blair Primary Care Unavailable YARED DODD Referring Unavailable KINGSLEY, DAVID Blair Primary Care Unavailable KINGSLEY, DAVID Rossy Primary Care Unavailable ASHVIN MUNGUIA Referring Unavailable KINGSLEY, DAVID Rossy Primary Care Unavailable KINGSLEY, DAVID F Primary Care Unavailable MESFIN PERRIN Attending Unavailable KINGSLEY, DAVID Rossy Primary Care Unavailable SUSHIL HAWKINS Referring Unavailable PHIL LAWTON Attending Unavailable KINGSLEY, DAVID Rossy Primary Care Unavailable PHIL LAWTON Attending Unavailable KINGSLEY, DAVID Rossy Primary Care Unavailable YARED DODD Referring Unavailable KINGSLEY, DAVID Rossy Primary Care Unavailable YARED DODD Referring Unavailable KINGSLEY, DAVID Rossy Primary Care Unavailable ROBERT COLLADO Attending Unavailable KINGSLEY, DAVID Rossy Primary Care Unavailable VALERIANO SOLITARIO Attending Unavailable KINGSLEY, DAVID Blari Primary Care Unavailable MARY KATE BARBER Attending Unavailable KINGSLEY, DAVID Blair Primary Care Unavailable KINGSLEY, DAVID Rossy Primary Care Unavailable MARY KATE BARBER Attending Unavailable KINGSLEY, DAVID Rossy Primary Care Unavailable LILIA OBREGON Attending Unavailable SELF Referring Unavailable SUSHIL HAWKINS Attending Unavailable KINGSLEY, DAVID Blair Primary Care Unavailable SILVESTREIEMARY KATE Escobedo Attending Unavailable KINGSLEY, DAVID Rossy Primary Care Unavailable Allergies Allergy Classification Reported Allergen(s) Allergy Type Date of Onset Reaction(s) Facility Corticosteroids (1 source) Betamethasone Drug Allergy 01-31-20 08 [facility] Opioid Agonists (1 source) Propoxyphene Drug Allergy 02-23-20 24 Other: See Comments [facility] Serotonin-1b and Serotonin-1d Receptor Agonists (1 source) SUMAtriptan Drug Allergy 04-07-20 23 Other: See Comments [facility] (20 sources) Betamethasone; Translations: [BETAMETHASONE DIPROPIONATE] Drug Allergy 01-31-20 08 [facility] (19 sources) animal dander [Other] Propensity to adverse reactions 03-23-20 12 Other: See Comments [facility] (19 sources) environmental [Other] Propensity to adverse reactions 03-23-20 12 Other: See Comments [facility] (11 sources) Corticosteroids and derivatives; Translations: [corticosteroids] Drug allergy Blurred vision [facility] (11 sources) predniSONE; Translations: [prednisone] Drug Allergy loses sight [facility] (20 sources) Propoxyphene; Translations: [propoxyphene] Drug Allergy 02-23-20 24 Other: See Comments [facility] (20 sources) SUMAtriptan; Translations: [sumatriptan] Drug Allergy 04-07-20 23 Other: See Comments [facility] (20 sources) Animal Dander; Translations: [animal dander] Drug Allergy 04-08-20 Itching [facility] Work Phone: (7 sources) Glucocorticoid Receptor Agonists; Translations: [CORTICOSTEROIDS (GLUCOCORTICOIDS)] Allergy to substance 05-03-20 23 Hives [facility] (1 source) Corticosteroids Drug allergy (disorder) 05-03-20 23 [facility] Repository (1 source) SUMAtriptan Drug Allergy 05-03-20 23 [facility] Repository (20 sources) semaglutide; Translations: [SEMAGLUTIDE] Drug Allergy 06-07-20 24 Intolerance [facility] (20 sources) Glucocorticoid preparation Propensity to adverse reactions to drug 10-24-20 24 Other: See Comments [facility] (19 sources) Morphinan opioid; Translations: [OPIOIDS - MORPHINE ANALOGUES] Propensity to adverse reactions to drug 02-09-20 25 Other: See Comments [facility] Medications Current Medications Medication Drug Class(es) Dates Sig (Normalized) Sig (Original) 0.4 ML cyclosporine 0.5 MG/ML Ophthalmic Suspension [Restasis] (4 sources) Start: 09-18-2024 Restasis 0.05% ophthalmic emulsion 0 Refill(s) Start Date: 09/18/24 Status: Ordered Repeat number: 1 Start: 09-18-2024 Restasis 0.05% ophthalmic emulsion 0 Refill(s) Start Date: 09/18/24 Status: Ordered 0.5 ML tirzepatide 5 MG/ML Auto-Injector [Mounjaro] (2 sources) Start: 09-18-2024 inject 2.5 mg by subcutaneous injection every week, then inject 5 mg by subcutaneous injection every week Jamie 2.5 mg/0.5 mL subcutaneous solution INJECT 2.5 MG SUBCUTANEOUSLY ONE TIME A WEEK. X 4 WKS THEN INCREASE TO 5 MG WEEKLY Start Date: 09/18/24 Status: Ordered ACCU-CHEK GUIDE GLUCOSE METER (6 sources) Start: 06-28-2025 ACCU-CHEK GUIDE GLUCOSE METER Use as instructed to test blood sugar 5 times daily. DX: E11.42, insulin dependent 1 each 06/28/2025 Active acyclovir 800 mg oral tablet (4 sources) Herpesvirus Nucleoside Analog DNA Polymerase Inhibitor, Herpes Simplex Virus Nucleoside Analog DNA Polymerase Inhibitor, Herpes Zoster Virus Nucleoside Analog DNA Polymerase Inhibitor Start: 12-26-2024 End: 01-05-2025 take 1 tablet by mouth five times daily acyclovir (ZOVIRAX) 800 mg tablet Indications: Herpes zoster without complications Take 1 tablet by mouth five times a day for 10 days. 50 tablet 12/26/2024 01/05/2025 Active albuterol MDI (90 mcg/inh) CFC free inhalation aerosol (7 sources) Start: 02-22-2025 take 2 doses by inhalation every six hours as needed for wheezing albuterol MDI (90 mcg/inh) CFC free inhalation aerosol Dose : 180 mcg = 2 inh, Inhalation, q6hr, PRN as needed for wheezing, # 18 gram(s), 0 Refill(s), Pharmacy: [facility]/pharmacy #[id number], Cough, 165, cm, 02/22/25 16:31:00 EDT, Height, kg, 02/22/25 16:31:00 EDT, Dosing Weight Start Date: 02/22/25 Status: Ordered Quantity: 18.0 Unit: g Repeat number: 1 Indications: Cough, unspecified; Start: 04-14-2022 take 2 puff(s) by in halation every four hours as needed for wheezing albuterol MDI (90 mcg/inh) CFC free inhalation aerosol 2 puff(s), Inhalation, q4h, PRN as needed for wheezing, # 3 EA, 1 Refill(s), Pharmacy: [facility], 165, cm, 04/14/22 16:15:00 EDT, Height, kg, 04/14/22 16:15:00 EDT, Dosing Weight Start Date: 04/14/22 Status: Ordered aspirin 81 mg delayed release oral tablet (20 sources) Platelet Aggregation Inhibitor, Nonsteroidal Anti-inflammatory Drug Start: 04-13-2023 take 1 tablet by mouth once daily aspirin, enteric coated (ASPIRIN, ENTERIC COATED) 81 mg EC tablet Take 1 tablet by mouth once daily. 04/13/2023 Active Start: 04-24-2022 take 1 tablet by tori th every other day ASPIRIN 81 MG CHEWABLE TAB Take 81 mg by mouth every other day. 0 04/24/2022 Active Start: 06-21-2019 aspirin 81 mg oral delayed release tablet Dose : 81 mg = 1 tab(s), Oral, qDay, # 30 tab(s), 0 Refill(s) Start Date: 06/21/19 Status: Ordered Start: 01-31-2008 ASPIRIN 81 MG CHEWABLE TAB Take one tablet daily 0 01/31/2008 Active Comment on above: Take one tablet hakan y Take 81 mg by mouth every other day. Take 1 tablet by tori th once daily. azithromycin 250 mg oral tablet (20 sources) Macrolide Antimicrobial Start: 03-16-2025 End: 03-21-2025 azithromycin 250 mg oral tablet Take two (2) tablets day 1-then one (1) tablet, Oral, Daily, X 5 day(s), # 6 tab(s), 0 Refill(s), 03/21/25 2:52:00 PM EDT, Pharmacy: [facility]/pharmacy #[id number], Acute bronchitis, 166, cm, 03/16/25 14:15:00 EDT, Height, 84.5, kg, 03/16/25 14:15:00 EDT, Dosing Weight Start Date: 03/16/25 Stop Date: 03/21/25 Status: Ordered Quantity: 6.0 Unit: tab(s) Repeat number: 1 Indications: Acute bronchitis, unspecified; Start: 03-16-2025 End: 06-28-2025 azithromycin (ZITHROMAX) 250 mg tablet Take 250 mg by mouth. 03/16/2025 06/28/2025 Discontinued Start: 08-19-2024 End: 12-21-2024 azithromycin (ZITHROMAX) 250 mg tablet TAKE 2 TABLETS BY MOUTH TODAY, THEN TAKE 1 TABLET DAILY FOR 4 DAYS DIRECTED 08/19/2024 12/21/2024 Discontinued baclofen 10 mg oral tablet (2 sources) gamma-Aminobutyric Acid-ergic Agonist Start: 02-26-2021 baclofen 10 mg oral tablet Dose : 10 mg = 1 tab(s), Oral, qHS, # 30 tab(s), 0 Refill(s), Pharmacy: [facility]/pharmacy #[id number], Muscle spasm, 165, cm, 02/26/21 11:38:00 EDT, Height, kg, 02/26/21 11:38:00 EDT, Dosing Weight Start Date: 02/26/21 Status: Ordered Blood Glucose Test Machine (11 sources) Start: 06-24-2020 Blood Glucose Test Machine See Instructions, Dispense Accu-Chek Kristie plus glucometer, #1, UAD 4 times daily to check blood sugar; frequent blood sugar testing due to fluctuating blood sugars, # 1 EA, 0 Refill(s), Pharmacy: [facility], Diabetes, 168, cm, 03/05/20 13:39:00 EDT, Height, 97.5, kg, 03/05/20 13:39:00 EDT, Dosing Weight Start Date: 06/24/20 Status: Ordered Quantity: 1.0 Unit: EA Repeat number: 1 Indications: Type 2 diabetes mellitus without complications; Start: 06-24-2020 Blood Glucose Test Machine See Instructions, Dispense Accu- Chek Kristie plus glucometer, #1, UAD 4 times daily to check blood sugar; frequent blood sugar testing due to fluctuating blood sugars, # 1 EA, 0 Refill(s), Pharmacy: [facility], Diabetes, 168, cm, 03/05/20 13:39:00 EDT, Height, 97.5, kg, 03/05/20 13:39:00 EDT, Dosing Weight Start Date: 06/24/20 Status: Ordered Start: 06-24-2020 Blood Glucose Test Machine See Instructions, Dispense Accu- Chek Kristie plus glucometer, #1, UAD 4 times daily to check blood sugar; frequent blood sugar testing due to fluctuating blood sugars, # 1 EA, 0 Refill(s), Pharmacy: [facility], Diabetes, 168, cm,... 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 60 tablet 11 05/03/2023 06/13/2023 Discontinued Start: 04-13-2023 End: 05-03-2023 carvedilol 6.25 mg oral tabl et Dose : 3.125 mg = 0.5 tab(s), Oral, BID, 0 Refill(s) Start Date: 04/29/23 Status: Ordered Repeat number: 1 Comment on above: Take 1 tablet by tori th twice daily with meals. take 1 tablet by tori th twice a day with food cephalexin 500 mg oral capsule (2 sources) Cephalosporin Antibacterial Start: 4 End: 4 cephalexin 500 mg oral capsule Dose : 500 mg = 1 cap(s), Oral, q12h, X 7 day(s), # 14 cap(s), 0 Refill(s), 09/25/24 3:52:00 PM EST, Pharmacy: [facility]/pharmacy #[id number], UTI (urinary tract infection), 165, cm, 06/21/24 15:49:00 EDT, Height, 87.6, kg, 06/21/24 15:49:00 EDT, Dosing Weight Start Date: 09/18/24 Stop Date: 09/25/24 Status: Ordered clopidogrel 75 mg oral tablet (20 sources) [id number] Platelet Inhibitor Start: 3 End: 5 take 1 tablet by mouth once daily clopidogrel (PLAVIX) 75 mg tablet Indications: 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 colchicine 0.6 mg oral tablet (9 sources) Start: take 0.6 mg by mouth twice daily Colchicine (Gout) Active 0.6 MG PO TWICE A DAY May 03, 2023 12:00am Start: 04-13-2023 End: 05-13-2023 take 1 tablet by mouth once daily colchicine 0.6 mg tablet Take 1 tablet by mouth once daily. 30 tablet 0 04/13/2023 05/03/2023 Discontinued Comment on above: Take 1 tablet by tori th once daily. cycloSPORINE 0.5 mg/ml ophthalmic suspension (20 sources) Calcineurin Inhibitor Immunosuppressant Start: 10-19-20 take 1 drop(s) into the eye(s) twice daily cycloSPORINE (RESTASIS) 0.05 % ophthalmic emulsion Use 1 Drop in both eyes two times a day. 180 Each 10/19/2024 Active Start: 06-13-2024 End: 10-19-2024 take 1 drop(s) into the eye(s) twice daily RESTASIS 0.05 % ophthalmic emulsion USE 1 DROP IN BOTH EYES TWO TIMES A DAY. 180 Each 06/13/2024 10/19/2024 Discontinued Start: 02-23-2024 End: 06-13-2024 take 1 drop(s) into the eye(s) twice daily cycloSPORINE (RESTASIS) 0.05 % ophthalmic emulsion Use 1 Drop in both eyes two times a day. 180 Each 0 02/23/2024 06/13/2024 Discontinued Comment on above: Use 1 Drop in both e yes two times a day. dapagliflozin 10 mg oral tablet (20 sources) Sodium-Glucose Cotransporter 2 Inhibitor Start: 08-10-2023 End: 03-27-2025 dapagliflozin propanediol (FARXIGA) 10 mg tablet Indications: Type 2 diabetes mellitus with diabetic microalbuminuria, with long-term current use of insulin (HCC) , Type 2 diabetes mellitus with diabetic polyneuropathy, with long-term current use of insulin (HCC) Take 1 tablet by mouth daily with breakfast. 90 tablet 3 03/27/2025 Active Start: 04-13-2023 take 1 tablet by tori th once daily Dapagliflozin Propanediol (Farxiga) 5 mg Tablet Active 5 MG PO DAILY May 03, 2023 12:00am Comment on above: Take 1 tablet by tori th daily with breakfast. 24 hr dilTIAZem hydrochloride 120 mg extended release oral capsule (2 sources) Calcium Channel Estefania Start: 09-22-20 take 1 capsule by mouth every hour, then take 1 capsule by mouth once daily at bedtime dilTIAZem 120 mg/24 hours oral capsule, extended release Dose : 120 mg = 1 cap(s), Oral, qHS, # 30 cap(s), 1 Refill(s), Pharmacy: [facility], Hypertension, 165, cm, 09/22/22 16:11:00 EST, Height Start Date: 09/22/22 Status: Ordered diphenhydrAMINE hydrochloride 2.5 mg/ml oral solution (20 sources) Histamine-1 Receptor Antagonist Start: 11-04-20 take 1 dose by mouth three times daily as needed Benadryl Children's Dye Free 12.5 mg/5 mL oral liquid Dose : 12.5 mg = 5 mL, Oral, TID, PRN as needed for allergy symptoms, 0 Refill(s) Start Date: 11/04/23 Status: Ordered Repeat number: 1 Start: 03-05-2020 Benadryl 12.5 mg oral tablet, chewable Dose : 25 mg = 2 tab(s), Chewed, TID, PRN as needed for allergy symptoms, # 60 tab(s), 0 Refill(s) Start Date: 03/05/20 Status: Ordered take 12.5 mg by mout h every twenty-four hours as needed diphenhydrAMINE (BENADRYL ALLERGY) 12.5 mg/5 mL liquid Take 12.5 mg by mouth at bedtime as needed. Active diphenhydrAMINE (BENADRYL ALLERGY) 12.5 mg/5 mL liquid Active DME MISCellaneous (11 sources) Start: 04-29-2021 DME MISCellane ous See Instructions, Dispense one Rodriguez Cervical Tracion device, use daily as directed for cervical pain, # 1 EA, 0 Refill(s), DDD (degenerative disc disease), cervical, 96 Start Date: 04/29/21 Status: Ordered Quantity: 1.0 Unit: EA Repeat number: 1 Indications: Other cervical disc disorders, unspecified cervical region; Start: 04-29-2021 DME MISCellane ous See Instructions, Dispense one Rodriguez Cervical Tracion device, use daily as directed for cervical pain, # 1 EA, 0 Refill(s), DDD (degenerative disc disease), cervical, 96 Start Date: 04/29/21 Status: Ordered doxycycline monohydrate 100 mg oral tablet (1 source) Tetracycline-class Drug Start: 03-18-2025 End: 03-25-2025 take 1 tablet by mouth twice daily doxycycline monohydrate 100 mg tablet Take 1 tablet by mouth two times a day for 7 days. 14 tablet 03/18/2025 03/25/2025 Active 0.5 ml dulaglutide 3 mg/ml auto-injector (15 sources) GLP-1 Receptor Agonist Start: 04-14-2022 End: 04-09-2023 inject 1 dose by subcutaneous injection every week Trulicity Pen 1.5 mg/0.5 mL subcutaneous solution Dose : 1.5 mg =, Subcutaneous, qWeek, # 6 mL, 3 Refill(s), Pharmacy: [facility], 165, cm, 04/14/22 16:15:00 EDT, Height, kg, 04/14/22 16:15:00 EDT, Dosing Weight Start Date: 04/14/22 Stop Date: 04/09/23 Status: Ordered Start: 03-07-2021 End: 06-04-2022 inject 0.75 mg by subcutaneous injection every week dulaglutide (TRULICITY) 0.75 mg/0.5 mL pen injector Indications: Type 2 diabetes mellitus with diabetic nephropathy, with long-term current use of insulin (HCC) Inject 0.75 mg subcutaneously one time a week. 4 Each 5 04/24/2022 06/04/2022 Discontinued Comment on above: Inject 0.75 mg subcu taneously one time a week. Inject 1.5 mg subcut aneously one time a week. ezetimibe 10 mg oral tablet (17 sources) Dietary Cholesterol Absorption Inhibitor Start: 02-16-20 take 1 tablet by mouth once daily ezetimibe (ZETIA) 10 mg tablet Indications: Mixed hyperlipidemia Take 1 tablet by mouth once daily. 90 tablet 3 02/15/2025 Active Start: 10-18-2023 take 1 tablet by tori th once daily ezetimibe (ZETIA) 10 mg tablet Indications: Mixed hyperlipidemia , Statin intolerance Take 1 tablet by mouth once daily. 90 tablet 3 10/18/2023 Active Comment on above: Take 1 tablet by tori th once daily. fexofenadine hydrochloride 180 mg oral tablet (20 sources) Histamine-1 Receptor Antagonist Start: 11-04-2023 fexofenadine 180 mg oral tablet Dose : 180 mg = 1 tab(s), Oral, Daily, PRN allergies, 0 Refill(s) Start Date: 11/04/23 Status: Ordered Start: 05-03-2023 take 1 tablet by tori th every twenty-four hours Fexofenadine (Angela) 180 mg Tablet Active 180 MG PO Q24H May 03, 2023 12:00am End: 09-07-2024 take 1 tablet by mouth once daily fexofenadine (ALLEGR A) 180 mg tablet Take 180 mg by mouth once daily. 09/07/2024 Discontinued Comment on above: Take 180 mg by mouth once daily. gabapentin 300 mg oral capsule (6 sources) Anti-epileptic Agent Start: End: take 1 capsule by mouth once daily at bedtime gabapentin (NEURONTIN) 300 mg capsule Take 1 capsule by mouth daily at bedtime for 30 days. 30 capsule 04/04/2025 Active ibuprofen 800 mg oral tablet (3 sources) Nonsteroidal Anti-inflammatory Drug Start: ibuprofen (MOTRIN) 800 mg tablet 02/18/2025 Active 3 ml insulin aspart, human 100 unt/ml pen injector (20 sources) Insulin Analog Start: End: inject 20 [IU] by subcutaneous injection at breakfast, then inject 20 [IU] by subcutaneous injection at lunch, then inject 20 [IU] by subcutaneous injection at dinner, then inject 70 [IU] by subcutaneous injection once daily NOVOLOG FLEXPEN U-100 INSULIN 100 unit/mL (3 mL) Indications: Type 2 diabetes mellitus with diabetic polyneuropathy, with long-term current use of insulin ([facility]) , Type 2 diabetes mellitus with diabetic nephropathy, with long-term current use of insulin ([facility]) INJECT SUBCUTANEOUSLY BREAKFAST 20 UNITS, LUNCH 20 UNITS , DINNER 20 UNITS PLUS SCALE UP TO 70 UNITS DAILY 30 mL 11 12/21/2024 Active Start: 01-11-2024 End: 02-18-2024 inject 18 [IU] by subcutaneous injection at breakfast, then inject 18 [IU] by subcutaneous injection at lunch, then inject 18 [IU] by subcutaneous injection at dinner, then inject 70 [IU] by subcutaneous injection once daily NOVOLOG FLEXPEN U-100 INSULIN 100 unit/mL (3 mL) INJECT SUBCUTANEOUSLY BREAKFAST 18 UNITS, LUNCH 18 UNITS , DINNER 18 UNITS PLUS SCALE UP TO 70 UNITS DAILY 30 mL 11 01/11/2024 02/18/2024 Discontinued Start: 11-22-2023 End: 01-11-2024 inject 15 [IU] by subcutaneous injection at breakfast, then inject 15 [IU] by subcutaneous injection at lunch, then inject 15 [IU] by subcutaneous injection at dinner, then inject 60 [IU] by subcutaneous injection once daily NOVOLOG FLEXPEN U-100 INSULIN 100 unit/mL (3 mL) INJECT SUBCUTANEOUSLY BREAKFAST 15 UNITS, LUNCH 15 UNITS , DINNER 15 UNITS PLUS SCALE UP TO 60 UNITS DAILY 30 mL 11 11/22/2023 01/11/2024 Discontinued Start: 08-10-2023 insulin aspart U-100 (NOVOLOG FLEXPEN U-100 INSULIN) 100 unit/mL (3 mL) Indications: Type 2 diabetes mellitus with diabetic nephropathy, with long-term current use of insulin ([facility]) , Type 2 diabetes mellitus with diabetic polyneuropathy, with long-term current use of insulin ([facility]) Inject subcutaneously TID meals per SS up to 15 units daily 15 mL 11 08/10/2023 Active Start: 05-03-2023 Insulin Aspart U-100 Active 15 UNIT SC THREE TIMES A DAY May 03, 2023 12:00am Start: 03-09-2023 insulin aspart U-100 (NOVOLOG FLEXPEN U-100 INSULIN) 100 unit/mL (3 mL) Indications: Type 2 diabetes mellitus with diabetic nephropathy, with long-term current use of insulin (HCC) , Type 2 diabetes mellitus with diabetic polyneuropathy, with long-term current use of insulin (FORM[facility]LY [facility]) Inject subcutaneously TID meals per SS up to 15 units daily 15 mL 03/09/2023 Active Start: 06-04-2022 insulin aspart U-100 (NOVOLOG FLEXPEN U-100 INSULIN) 100 unit/mL (3 mL) Indications: Type 2 diabetes mellitus with diabetic nephropathy, with long-term current use of insulin (HCC) , Type 2 diabetes mellitus with diabetic polyneuropathy, with long-term current use of insulin (HCC) Inject subcutaneously TID meals per SS up to 15 units daily 15 mL 5 06/04/2022 Active Start: 05-12-2022 NovoLOG FlexPe n 100 units/mL injectable solution sliding scale, 0 Refill(s) Start Date: 05/12/22 Status: Ordered Repeat number: 1 Start: 04-24-2022 End: 06-04-2022 inject 10 [IU] by subcutaneous injection at breakfast, then inject 10 [IU] by subcutaneous injection at lunch, then inject 10 [IU] by subcutaneous injection at dinner, then inject 45 [IU] by subcutaneous injection once daily insulin aspart U-100 (NOVOLOG FLEXPEN U-100 INSULIN) 100 unit/mL (3 mL) Indications: Type 2 diabetes mellitus with diabetic nephropathy, with long-term current use of insulin ([facility]) Inject subcutaneously 10 units breakfast, 10 units lunch, 10 units dinner plus SS up to 45 units daily 15 mL 5 04/24/2022 06/04/2022 Discontinued (Adjust Sig - Block E-Cancel) Start: 03-07-2021 End: 04-24-2022 inject 10 [IU] by subcutaneous injection at breakfast, then inject 10 [IU] by subcutaneous injection at lunch, then inject 10 [IU] by subcutaneous injection at dinner, then inject 45 [IU] by subcutaneous injection once daily insulin aspart U-100 (NOVOLOG U-100 INSULIN ASPART) 100 unit/mL Indications: Type 2 diabetes mellitus with diabetic nephropathy, with long-term current use of insulin (HCC) Inject subcutaneously 10 units breakfast, 10 units lunch, 10 units dinner plus SS up to 45 units daily 2 Vial 5 03/07/2021 04/24/2022 Discontinued Comment on above: Inject subcutaneousl y 10 units breakfast, 10 units lunch, 10 units dinner plus SS up to 45 units daily Inject subcutaneousl y TID meals per SS up to 15 units daily INJECT SUBCUTANEOUSL Y BREAKFAST 18 UNITS, LUNCH 18 UNITS , DINNER 18 UNITS PLUS SCALE UP TO 70 UNITS DAILY INJECT SUBCUTANEOUSL Y BREAKFAST 15 UNITS, LUNCH 15 UNITS , DINNER 15 UNITS PLUS SCALE UP TO 60 UNITS DAILY INJECT SUBCUTANEOUSL Y BREAKFAST 20 UNITS, LUNCH 20 UNITS , DINNER 20 UNITS PLUS SCALE UP TO 70 UNITS DAILY 3 ml insulin degludec 200 unt/ml pen injector (20 sources) Insulin Analog Start: 06-07-2024 End: 03-27-2025 TRESIBA FLEXTOUCH U-200 200 unit/mL (3 mL) injection Indications: Type 2 diabetes mellitus with diabetic microalbuminuria, with long-term current use of insulin (HCC) , Type 2 diabetes mellitus with diabetic polyneuropathy, with long-term current use of insulin (HCC) Inject subcutaneously 70 units daily 12 mL 11 03/27/2025 Active Start: 01-11-2024 End: 06-07-2024 insulin degludec (TRESIBA FL EXTOUCH U-200) 200 unit/mL (3 mL) injection Indications: Type 2 diabetes mellitus with diabetic nephropathy, with long-term current use of insulin (HCC) , Type 2 diabetes mellitus with diabetic polyneuropathy, with long-term current use of insulin (HCC) Inject subcutaneously 60 units daily 9 mL 11 01/11/2024 06/07/2024 Discontinued Start: 11-19-2023 End: 01-11-2024 insulin degludec (TRESIBA FL EXTOUCH U-200) 200 unit/mL (3 mL) injection Indications: Type 2 diabetes mellitus with diabetic nephropathy, with long-term current use of insulin (HCC) , Type 2 diabetes mellitus with diabetic polyneuropathy, with long-term current use of insulin (HCC) Inject subcutaneously 50 units daily 9 mL 11 11/19/2023 01/11/2024 Discontinued Start: 08-10-2023 insulin deglud ec (TRESIBA FLEXTOUCH U-200) 200 unit/mL (3 mL) injection Indications: Type 2 diabetes mellitus with diabetic nephropathy, with long-term current use of insulin (HCC) , Type 2 diabetes mellitus with diabetic polyneuropathy, with long-term current use of insulin (HCC) Inject subcutaneously 80 units daily 12 mL 3 08/10/2023 Active Start: 04-13-2023 End: 08-01-2023 insulin degludec (TRESIBA FL EXTOUCH U-200) 200 unit/mL (3 mL) injection Indications: Type 2 diabetes mellitus with diabetic nephropathy, with long-term current use of insulin (HCC) , Type 2 diabetes mellitus with diabetic polyneuropathy, with long-term current use of insulin (HCC) Inject 50 Units subcutaneously daily before lunch. 24 mL 0 08/02/2023 Active Start: 10-05-2022 inject 90 [IU] by elder bcutaneous injection once daily insulin degludec (TRESIBA FLEXTOUCH U-200) 200 unit/mL (3 mL) injection Indications: Type 2 diabetes mellitus with diabetic nephropathy, with long-term current use of insulin (HCC) , Type 2 diabetes mellitus with diabetic polyneuropathy, with long-term current use of insulin (HCC) INJECT SUBCUTANEOUSLY 90 UNITS DAILY AT NOON. 45 ML PER 90 DAY SUPPLY.E11.21 45 mL 3 10/05/2022 Active Start: 06-04-2022 End: 10-05-2022 insulin degludec (TRESIBA FL EXTOUCH U-200) 200 unit/mL (3 mL) injection Indications: Type 2 diabetes mellitus with diabetic nephropathy, with long-term current use of insulin (HCC) , Type 2 diabetes mellitus with diabetic polyneuropathy, with long-term current use of insulin (HCC) Inject subcutaneously 90 units daily at noon 6 Each 5 08/04/2022 10/05/2022 Discontinued Start: 03-07-2021 End: 03-02-2023 inject 1 dose by subcutaneous injection once daily Tresiba FlexTouch 200 units/mL 3 mL subcutaneous solution Dose : 100 unit(s) =, qDay, 0 Refill(s) Start Date: 05/12/22 Status: Ordered Repeat number: 1 Comment on above: Inject 100 Units sub cutaneously daily at bedtime. Inject subcutaneousl y 100 units daily at noon Inject subcutaneousl y 90 units daily at noon INJECT SUBCUTANEOUSL Y 90 UNITS DAILY AT NOON. 45 ML PER 90 DAY SUPPLY.E11.21 INJECT SUBCUTANEOUSL Y 100 UNITS DAILY AT NOON. 45 ML PER 90 DAY SUPPLY.E11.21 Inject 50 Units subc utaneously daily before lunch. May titrate back to previous dose if poorly controlled blood sugar Inject 50 Units subc utaneously daily before lunch. Inject subcutaneousl y 80 units daily Inject subcutaneousl y 60 units daily Inject subcutaneousl y 50 units daily Insulin Degludec (Tresiba U-100 Insulin) 100 unit/mL Solution (4 sources) Start: 023 Insulin Degludec (Tresiba U-100 Insulin) 100 unit/mL Solution Active 50 UNIT SC DAILY May 03, 2023 12:00am insulin detemir 100 unt/ml injectable solution (2 sources) Insulin Analog Start: 022 End: 023 inject 1 dose by subcutaneous injection twice daily Levemir 100 units/mL 10 mL vial Dose : 100 unit(s) =, Subcutaneous, BID, # 180 mL, 3 Refill(s), Pharmacy: [facility], 165, cm, 04/14/22 16:15:00 EDT, Height Start Date: 04/14/22 Stop Date: 04/09/23 Status: Ordered ipratropium bromide 0.042 mg/actuat metered dose nasal spray (5 sources) Anticholinergic Start: ipratropium 42 mcg/inh (0.06%) nasal spray 84 mcg Dose = 2 spray(s), Nasal, TID, # 15 mL, 0 Refill(s) Start Date: 02/22/25 Status: Ordered Quantity: 15.0 Unit: mL Repeat number: 1 Start: 02-18-2025 ipratropium br omide (ATROVENT) 42 mcg (0.06 %) nasal spray 02/18/2025 Active 3 ml liraglutide 6 mg/ml pen injector (6 sources) GLP-1 Receptor Agonist Start: 06-28-2025 liraglutide (VICTOZA) 0.6 mg/ 0.1 ml subcutaneous pen injector Indications: Type 2 diabetes mellitus with diabetic microalbuminuria, with long-term current use of insulin ([facility]) , Type 2 diabetes mellitus with diabetic polyneuropathy, with long-term current use of insulin ([facility]) Start victoza 0.6 mg daily, if tolerated (nausea, vomiting, diarrhea), after one week, increase to 1.2 mg daily. If tolerated, after one week, increase to 1.8 mg daily. If you should not tolerate the higher dose, resume lower tolerated dose. 9 mL 11 06/28/2025 Active loratadine 10 mg oral tablet (8 sources) Start: 06-28-2020 loratadine 10 mg oral tablet Dose : 10 mg = 1 tab(s), Oral, qDay, # 90 tab(s), 3 Refill(s), Pharmacy: [facility], Environmental allergies, 165, cm, 09/22/22 16:11:00 EST, Height Start Date: 09/22/22 Status: Ordered methylPREDNISolone (2 sources) Corticosteroid Start: 03-26-2025 End: 04-01-2025 methylPREDNISolone (MEDROL, ALBERTO,) 4 mg Dose-Pack Indications: Persistent cough Take as instructed per package. 21 tablet 03/26/2025 04/01/2025 Active metroNIDAZOLE 7.5 mg/ml topical cream (15 sources) Nitroimidazole Antimicrobial Start: 02-03-2025 metroNIDAZOLE 0.75 % cream APPLY TO FACE EVERY MORNING AND EVERY EVENING 02/03/2025 Active Multivitamin capsule (20 sources) take 1 capsule by mouth once daily Multivitamin capsule Take 1 capsule by mouth once daily. Active take 1 capsule by mouth once linda ly Multivitamin capsule Take 1 capsule by mouth once daily. 0 Active Comment on above: Take 1 capsule by mo [facility] once daily. Multivitamin preparation (11 sources) Start: 06-21-2019 take 1 tablet by mouth once daily Multivitamin Dose = 1 tab(s), Oral, Daily, 0 Refill(s) Start Date: 06/21/19 Status: Ordered Repeat number: 1 Start: 06-21-2019 [facility] Multivitamin Dose = 1 tab(s), Oral, Daily, 0 Refill(s) Start Date: 06/21/19 Status: Ordered nitroglycerin 0.4 mg sublingual tablet (20 sources) Nitrate Vasodilator Start: 04-29-2023 nitroglyce rin 0.4 mg sublingual tablet 0.4 mg Dose = 1 tab(s), Sublingual, q5min, PRN as needed for chest pain, # 100 tab(s), 0 Refill(s) Start Date: 04/29/23 Status: Ordered Quantity: 100.0 Unit: tab(s) Repeat number: 1 Start: 04-13-2023 End: 06-12-2024 nitroglycerin sublingual (NI TROQUICK) 0.4 mg SL tablet Indications: 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 Dissolve 1 tablet under the tongue every 5 minutes as needed for chest pain. 25 tablet 06/12/2024 Active Comment on above: Dissolve 1 tablet un rafi the tongue every 5 minutes as needed for chest pain. perflutren lipid microspheres 1.3 mL in NaCl (PF) 0.9% 10 mL injection (DEFINITY) (20 sources) Start: End: perflutren lipid microspheres 1.3 mL in NaCl (PF) 0.9% 10 mL injection (DEFINITY) phenazopyridine hydrochloride 100 mg oral tablet (1 source) Start: End: phenazopyridine 100 mg oral tablet Dose : 100 mg = 1 tab(s), Oral, TID, PRN as needed for urinary discomfort, X 2 day(s), # 6 tab(s), 0 Refill(s), 09/20/24 3:52:00 PM EST, Pharmacy: [facility]/pharmacy #[id number], Pain with urination, 165, cm, 06/21/24 15:49:00 EDT, Height, kg, 06/21/24 15:49:00 EDT, Dosing Weight Start Date: 09/18/24 Stop Date: 09/20/24 Status: Ordered polyethylene glycol 3350 188163 mg / potassium chloride 2970 mg / sodium bicarbonate 6740 mg / sodium chloride 5860 mg / sodium sulfate 31282 mg powder for oral solution (1 source) Osmotic Laxative Start: End: peg 3350-Electrolytes (GOLYTELY) 236-22.74-6.74 -5.86 gram suspension Indications: Periumbilical abdominal pain , Diarrhea, unspecified type Take 4,000 mL by mouth one time only for 1 dose. Refer to printed prep instructions from your provider. 4000 mL 0 12/29/2022 12/29/2022 Active Comment on above: Take 4,000 mL by tori th one time only for 1 dose. Refer to printed prep instructions from your provider. progesterone 100 mg oral capsule (7 sources) Progesterone Start: progesterone micronized (PROMETRIUM) 100 mg capsule 06/27/2025 Active rosuvastatin calcium 40 mg oral tablet (20 sources) HMG-CoA Reductase Inhibitor Start: End: take 1 tablet by mouth once daily Rosuvastatin (Crestor) 40 mg Tablet Active 40 MG PO DAILY May 03, 2023 12:00am Start: 04-21-2022 take 1 tablet by tori th once daily at bedtime rosuvastatin (CRESTOR) 10 mg tablet Take 1 tablet by mouth daily at bedtime. 0 04/24/2022 Active Comment on above: Take 1 tablet by tori th daily at bedtime. sacubitril 24 mg / valsartan 26 mg oral tablet (20 sources) Angiotensin 2 Receptor Estefania Start: 07-03-2025 take 1 tablet by mouth twice daily sacubitril-valsarta n (ENTRESTO) 24-26 mg tablet Indications: Cardiomyopathy, ischemic , Chronic systolic congestive heart failure (HCC) Take 1 tablet by mouth two times a day. 180 tablet 3 07/03/2025 Active Start: 04-13-2023 End: 07-01-2025 take 1 tablet by mouth twice daily ENTRESTO 24-26 mg tablet Indications: Cardiomyopathy, ischemic , Chronic systolic congestive heart failure (HCC) TAKE 1 TABLET BY MOUTH TWICE A DAY 180 tablet 1 01/03/2025 07/01/2025 Discontinued Comment on above: Take 1 tablet by tori th twice daily. Take 1 tablet by tori th two times a day. 125 ml sodium chloride 9 mg/ml prefilled syringe (20 sources) Start: 05-03-20 End: 08-01-20 sodium chloride 0.9 % (flush) 10 mL (BD POSIFLUSH) spironolactone 25 mg oral tablet (20 sources) Aldosterone Antagonist Start: 07-24-20 take 0.5 tablet by mouth three times weekly spironolactone (ALDACTONE) 25 mg tablet Take 0.5 tablets by mouth three times a week. 07/24/2024 Active Start: 05-03-2023 End: 07-24-2024 take 0.5 tablet by mouth once daily spironolactone (ALDACTONE) 25 mg tablet Indications: Cardiomyopathy, ischemic Take 0.5 tablets by mouth once daily. 45 tablet 3 06/12/2024 07/24/2024 Discontinued (Adjust Sig - Block E-Cancel) Start: 04-14-2023 End: 05-03-2023 spironolactone 25 mg oral ta blet Dose : 12.5 mg = 0.5 tab(s), Oral, qDay, # 180 tab(s), 0 Refill(s) Start Date: 04/29/23 Status: Ordered Quantity: 180.0 Unit: tab(s) Repeat number: 1 Comment on above: Take 1 tablet by tori th once daily. Take 0.5 tablets by mouth once daily. sucralfate 1000 mg oral tablet (6 sources) Aluminum Complex Start: 12-29-2022 End: 02-21-2023 take 1 tablet by mouth four times daily sucralfate (CARAFATE) 1 gram tablet TAKE 1 TABLET BY MOUTH FOUR TIMES DAILY. CRUSHING TABLETS WITH SMALL AMOUNT OF WATER 120 tablet 0 01/22/2023 02/21/2023 Active Comment on above: Take 1 tablet by tori th four times daily. Crushing tablets with small amount of water Completed/Discontinued Medications Medication Drug Class(es) Dates Sig (Normalized) Sig (Original) [id number] 200 actuat albuterol 0.09 mg/actuat metered dose inhaler (14 sources) beta2-Adrenergic Agonist Start: 03-26-2025 End: 06-28-2025 take 2 puff(s) by inhalation every four hours as needed for wheezing albuterol HFA (PROVENTIL HFA, VENTOLIN HFA) 90 mcg/actuation inhaler Indications: Persistent cough Inhale 2 puffs as instructed every 4 hours as needed for wheezing/shortness of breath. 1 each 03/26/2025 06/28/2025 Discontinued Start: 02-22-2025 End: 06-28-2025 take 2 puff(s) by inhalation every six hours as needed albuterol HFA (PROVENTIL HFA, VENTOLIN HFA) 90 mcg/actuation inhaler Inhale 2 puffs as instructed every 6 hours as needed. 02/22/2025 06/28/2025 Discontinued Start: 12-03-2017 End: 04-24-2022 take 2 puff(s) by inhalation every four hours as needed for wheezing albuterol HFA (PROAIR HFA) 90 mcg/actuation inhaler Indications: Severe persistent asthma, unspecified whether complicated 2 Puffs every 4 hours as needed for Wheezing/Shortness of Breath. Take as directed 1 Inhaler 5 12/03/2017 04/24/2022 Discontinued Comment on above: 2 Puffs every 4 hour s as needed for Wheezing/Shortness of Breath. Take as directed bempedoic acid 180 mg oral tablet (20 sources) Start: End: take 1 tablet by mouth once daily bempedoic acid (NEXLETOL) 180 mg tablet Indications: Mixed hyperlipidemia Take 1 tablet (180 mg) by mouth once daily. 90 tablet 3 06/12/2024 01/15/2025 Discontinued benoxinate hydrochloride 4 mg/ml / fluorescein sodium 3 mg/ml ophthalmic solution (1 source) Diagnostic Dye Start: End: fluorescein-benoxina te 0.3-0.4 % 1 Drop (FLURESS) benzonatate 100 mg oral capsule (18 sources) Non-narcotic Antitussive Start: End: take 1 capsule by mouth every eight hours as needed benzonatate (TESSALON PERLE) 100 mg capsule Take 1 capsule by mouth three times a day as needed. 21 capsule 03/18/2025 06/28/2025 Discontinued Start: 02-18-2025 End: 06-28-2025 Benzonatate 200 mg capsule 0 02/18/2025 06/28/2025 Discontinued dextromethorphan hydrobromide 3 mg/ml / promethazine hydrochloride 1.25 mg/ml oral solution (5 sources) Phenothiazine, Uncompetitive P-iubvmb-G-aspartate Receptor Antagonist, Sigma-1 Agonist Start: 03-26-2025 End: 06-28-2025 take 5 mL by mouth four times daily as needed Promethazine-DM (PHENERGAN-DM) 6.25-15 mg/5 mL syrup Indications: Persistent cough Take 5 mL by mouth four times a day as needed. 118 mL 03/26/2025 06/28/2025 Discontinued diclofenac sodium 0.03 mg/mg topical gel (20 sources) Nonsteroidal Anti-inflammatory Drug Start: 10-23-2024 End: 06-28-2025 Diclofenac Sodium 3 % gel Apply 0.5 g to affected area two times a day. 100 g 10/23/2024 06/28/2025 Discontinued dulaglutide (TRULICITY) 3 mg/0.5 mL pen injector (12 sources) Start: 12-04-2022 dulaglutide (TRULICITY) 3 mg/0.5 mL pen injector Indications: Type 2 diabetes mellitus with diabetic nephropathy, with long-term current use of insulin (HCC) , Type 2 diabetes mellitus with diabetic polyneuropathy, with long-term current use of insulin (HCC) Inject 3 mg subcutaneously one time a week. 6 mL 3 12/04/2022 Active Start: 08-04-2022 dulaglutide (T RULICITY) 3 mg/0.5 mL pen injector Indications: Type 2 diabetes mellitus with diabetic nephropathy, with long-term current use of insulin (HCC) , Type 2 diabetes mellitus with diabetic polyneuropathy, with long-term current use of insulin (HCC) Inject 3 mg subcutaneously one time a week. 2 mL 5 08/04/2022 Active Comment on above: Inject 3 mg subcutan eously one time a week. flash glucose scanning reader (FREESTYLE RASHEL 3 READER) (6 sources) Start: flash glucose scanning reader (FREESTYLE RASHEL 3 READER) Indications: Type 2 diabetes mellitus with diabetic nephropathy, with long-term current use of insulin (HCC) , Type 2 diabetes mellitus with diabetic polyneuropathy, with long-term current use of insulin (HCC) , Hypoglycemia due to type 2 diabetes mellitus (HCC) Use one sensor every 14 days, IDDM, E 11.21 2 Each 11 08/10/2023 Active Comment on above: Use one sensor every 14 days, IDDM, E 11.21 ketotifen 0.25 mg/ml ophthalmic solution (20 sources) Histamine-1 Receptor Inhibitor Start: 024 End: ketotifen fumarate (ZADITOR) 0.025 % (0.035 %) ophthalmic solution USE 1 DROP IN BOTH EYES TWO TIMES A DAY. 15 mL 1 03/20/2024 09/07/2024 Discontinued Comment on above: Use 1 Drop in both e yes two times a day. losartan potassium 25 mg oral tablet (2 sources) Angiotensin 2 Receptor Estefania Start: 021 End: take 1 tablet by mouth once daily losartan (COZAAR) 25 mg tablet Indications: Type 2 diabetes mellitus with diabetic nephropathy, with long-term current use of insulin ([facility]) Take 1 tablet by mouth once daily. 0 03/07/2021 04/24/2022 Discontinued Comment on above: Take 1 tablet by tori th once daily. pantoprazole 40 mg delayed release oral tablet (20 sources) Proton Pump Inhibitor Start: End: take 1 tablet by mouth once daily pantoprazole DR (PROTONIX) 40 mg tablet Take 1 tablet by mouth once daily. 90 tablet 3 06/22/2023 06/07/2024 Discontinued Comment on above: Take 1 tablet by tori th once daily. phenylephrine hydrochloride 25 mg/ml ophthalmic solution (1 source) alpha-1 Adrenergic Agonist Start: End: PHENYLephrine 2.5 % 1 Drop (AK-DILATE, MOISES-SYNEPHRINE) pravastatin sodium 20 mg oral tablet (13 sources) HMG-CoA Reductase Inhibitor Start: End: take 1 tablet by mouth once daily at bedtime pravastatin (PRAVACHOL) 20 mg tablet Indications: Mixed hyperlipidemia Take 1 tablet by mouth daily at bedtime. 90 tablet 3 06/22/2023 10/18/2023 Discontinued Comment on above: Take 1 tablet by tori daily at bedtime. proparacaine hydrochloride 5 mg/ml ophthalmic solution (1 source) Local Anesthetic Start: End: proparacaine 0.5 % 1 Drop (ALCAINE) 24 hr propranolol hydrochloride 80 mg extended release oral capsule (11 sources) beta-Adrenergic Estefania Start: take 1 capsule by mouth once daily propranolol ER (INDERAL LA) 80 mg 24 hr capsule Take 1 capsule by mouth once daily. 0 03/09/2023 Active Start: 12-28-2022 propranolol 60 mg oral capsule, extended release 0 Refill(s) Start Date: 12/28/22 Status: Ordered Start: 04-14-2022 propranolol 60 mg oral capsule, extended release Dose : 60 mg = 1 cap(s), Oral, qDay, # 90 cap(s), 3 Refill(s), Pharmacy: [facility], 165, cm, 04/14/22 16:15:00 EDT, Height, kg, 04/14/22 16:15:00 EDT, Dosing Weight Start Date: 04/14/22 Status: Ordered Start: 01-31-2008 End: 06-04-2022 propranolol hcl(INDERAL LA 8 0 MG 24 HR CAP) 60 mg daily 0 01/31/2008 06/04/2022 Discontinued Comment on above: 60 mg daily Take 1 capsule by [facility] once daily. semaglutide (OZEMPIC) 0.25 mg or 0.5 mg (2 mg/3 mL) pen (9 sources) Start: 02-18-20 End: 06-07-20 inject 0.25 mg by subcutaneous injection every week, then inject 0.5 mg by subcutaneous injection every week semaglutide (OZEMPIC) 0.25 mg or 0.5 mg (2 mg/3 mL) pen Indications: Type 2 diabetes mellitus with diabetic nephropathy, with long-term current use of insulin ([facility]) , Type 2 diabetes mellitus with diabetic polyneuropathy, with long-term current use of insulin ([facility]) Inject subcutaneously 0.25 mg weekly x 4 wks then increase to 0.5 mg weekly 3 mL 5 02/18/2024 06/07/2024 Discontinued Start: 02-18-2024 inject 0.25 mg by elder bcutaneous injection every week, then inject 0.5 mg by subcutaneous injection every week semaglutide (OZEMPIC) 0.25 mg or 0.5 mg (2 mg/3 mL) pen Indications: Type 2 diabetes mellitus with diabetic nephropathy, with long-term current use of insulin ([facility]) , Type 2 diabetes mellitus with diabetic polyneuropathy, with long-term current use of insulin ([facility]) Inject subcutaneously 0.25 mg weekly x 4 wks then increase to 0.5 mg weekly 3 mL 5 02/18/2024 Active Comment on above: Inject subcutaneousl y 0.25 mg weekly x 4 wks then increase to 0.5 mg weekly tirzepatide (MOUNJARO) 2.5 mg/0.5 mL pen injector (20 sources) Start: 09-07-2024 End: 10-24-2024 tirzepatide (MOUNJARO) 2.5 mg/0.5 mL pen injector Indications: Type 2 diabetes mellitus with diabetic microalbuminuria, with long-term current use of insulin ([facility]) , Type 2 diabetes mellitus with diabetic polyneuropathy, with long-term current use of insulin (HCC) , Type 2 diabetes mellitus with diabetic nephropathy, with long-term current use of insulin (HCC) Inject 2.5 mg subcutaneously one time a week. X 4 wks then increase to 5 mg weekly. 2 mL 09/07/2024 10/24/2024 Discontinued (Side Effects) Start: 09-07-2024 tirzepatide (M OUNJARO) 2.5 mg/0.5 mL pen injector Indications: Type 2 diabetes mellitus with diabetic microalbuminuria, with long-term current use of insulin (HCC) , Type 2 diabetes mellitus with diabetic polyneuropathy, with long-term current use of insulin (HCC) , Type 2 diabetes mellitus with diabetic nephropathy, with long-term current use of insulin (HCC) Inject 2.5 mg subcutaneously one time a week. X 4 wks then increase to 5 mg weekly. 2 mL 09/07/2024 Active Start: 06-07-2024 End: 09-07-2024 inject 2.5 mg by subcutaneous injection every week, then inject 5 mg by subcutaneous injection every week tirzepatide (MOUNJARO) 2.5 mg/0.5 mL pen injector Indications: Type 2 diabetes mellitus with diabetic microalbuminuria, with long-term current use of insulin (HCC) , Type 2 diabetes mellitus with diabetic polyneuropathy, with long-term current use of insulin (HCC) Inject 2.5 mg subcutaneously one time a week. X 4 wks then increase to 5 mg weekly. 2 mL 06/07/2024 09/07/2024 Discontinued Start: 06-07-2024 inject 2.5 mg by sub cutaneous injection every week, then inject 5 mg by subcutaneous injection every week tirzepatide (MOUNJARO) 2.5 mg/0.5 mL pen injector Indications: Type 2 diabetes mellitus with diabetic microalbuminuria, with long-term current use of insulin (HCC) , Type 2 diabetes mellitus with diabetic polyneuropathy, with long-term current use of insulin (HCC) Inject 2.5 mg subcutaneously one time a week. X 4 wks then increase to 5 mg weekly. 2 mL 06/07/2024 Active Start: 06-07-2024 inject 2.5 mg by sub cutaneous injection every week, then inject 5 mg by subcutaneous injection every week tirzepatide (MOUNJARO) 2.5 mg/0.5 mL pen injector Indications: Type 2 diabetes mellitus with diabetic microalbuminuria, with long-term current use of insulin (HCC) , Type 2 diabetes mellitus with diabetic polyneuropathy, with long-term current use of insulin (HCC) Inject 2.5 mg subcutaneously one time a week. X 4 wks then increase to 5 mg weekly. 2 mL 0 06/07/2024 Active tirzepatide (MOUNJARO) 5 mg/0.5 mL pen injector (20 sources) Start: 10-02-2024 End: 10-24-2024 tirzepatide (MOUNJARO) 5 mg/ 0.5 mL pen injector Indications: Type 2 diabetes mellitus with diabetic microalbuminuria, with long-term current use of insulin (HCC) , Type 2 diabetes mellitus with diabetic polyneuropathy, with long-term current use of insulin (HCC) , Type 2 diabetes mellitus with diabetic nephropathy, with long-term current use of insulin (HCC) Inject 5 mg subcutaneously one time a week. Patient should start on October 02, 2024. 2 mL 5 10/02/2024 10/24/2024 Discontinued (Side Effects) Start: 10-02-2024 tirzepatide (M OUNJARO) 5 mg/0.5 mL pen injector Indications: Type 2 diabetes mellitus with diabetic microalbuminuria, with long-term current use of insulin (HCC) , Type 2 diabetes mellitus with diabetic polyneuropathy, with long-term current use of insulin (HCC) , Type 2 diabetes mellitus with diabetic nephropathy, with long-term current use of insulin (HCC) Inject 5 mg subcutaneously one time a week. Patient should start on October 02, 2024. 2 mL 5 10/02/2024 Active Start: 07-04-2024 End: 09-07-2024 tirzepatide (MOUNJARO) 5 mg/ 0.5 mL pen injector Indications: Type 2 diabetes mellitus with diabetic microalbuminuria, with long-term current use of insulin (HCC) , Type 2 diabetes mellitus with diabetic polyneuropathy, with long-term current use of insulin (HCC) Inject 5 mg subcutaneously one time a week. Patient should start on July 04, 2024. 2 mL 5 07/04/2024 09/07/2024 Discontinued Start: 07-04-2024 tirzepatide (M OUNJARO) 5 mg/0.5 mL pen injector Indications: Type 2 diabetes mellitus with diabetic microalbuminuria, with long-term current use of insulin (HCC) , Type 2 diabetes mellitus with diabetic polyneuropathy, with long-term current use of insulin (HCC) Inject 5 mg subcutaneously one time a week. Patient should start on July 04, 2024. 2 mL 5 07/04/2024 Active tropicamide 10 mg/ml ophthalmic solution (1 source) Anticholinergic Start: 02-23-2024 End: 02-24-2024 tropicamide 1 % 1 Drop (MYDRIACYL) valsartan 80 mg oral tablet (20 sources) Angiotensin 2 Receptor Estefania Start: 03-09-2023 take 2 tablets by mouth once daily valsartan (DIOVAN) 80 mg tablet Take 2 tablets by mouth once daily. 0 03/09/2023 Active Start: 04-24-2022 take 0.5 tablet by m outh once daily valsartan (DIOVAN) 80 mg tablet Take 0.5 tablets by mouth once daily. 0 04/24/2022 Active Start: 04-14-2022 valsartan 80 m g oral tablet Dose : 80 mg = 1 tab(s), Oral, qDay, # 90 tab(s), 3 Refill(s), Pharmacy: [facility], Hypertension, 165, cm, 05/12/22 15:24:00 EDT, Height, kg, 05/12/22 15:24:00 EDT, Dosing Weight Start Date: 05/12/22 Status: Ordered Comment on above: Take 0.5 tablets by mouth once daily. Take 2 tablets by mo uth once daily. Problems Active Problems Problem Classification Problem Date Documented Da te Episodic/Chronic Abdominal pain (6 sources) Abdominal pain; Translations: [Periumbilical pain] 02-11-2021 Episodic Acute bronchitis (2 sources) Acute bronchitis 03-16-2025 Episodic Allergic reactions (9 sources) Environmental allergy 09-22-2022 Episodic Cardiac dysrhythmias (9 sources) Tachyarrhythmia ; Translations: [Tachycardia, unspecified] Onset: Episodic Cataract (3 sources) Artificial lens present; Translations: [Presence of intraocular lens] 02-23-2024 Chronic Congestive heart failure; nonhypertensive (20 sources) Acute systolic heart failure; Translations: [Acute systolic (congestive) heart failure] Onset: 3 04-13-2023 Chronic Coronary atherosclerosis and other heart disease (20 sources) Coronary arteriosclerosis; Translations: [Atherosclerotic heart disease of chitina coronary artery with other forms of angina pectoris] Onset: 3 Chronic Coronary atherosclerosis and other heart disease (2 sources) Presence of coronary angioplasty implant and graft; Translations: [Presence of coronary angioplasty implant and graft] Onset: 3 Episodic Diabetes mellitus with complications (20 sources) Insulin treated type 2 diabetes mellitus; Translations: [Type 2 diabetes mellitus with diabetic nephropathy] Onset: 1 Chronic Diabetes mellitus without complication (20 sources) Diabetes mellitus; Translations: [Type 2 diabetes mellitus without complication] Onset: 3 06-17-2020 Chronic Disorders of lipid metabolism (20 sources) Mixed hyperlipidemia; Translations: [Mixed hyperlipidemia] Onset: 1 03-07-2021 Chronic Diverticulosis and diverticulitis (2 sources) Diverticular disease; Translations: [Diverticulosis of intestine, part unspecified, without perforation or abscess without bleeding] Chronic Esophageal disorders (13 sources) Gastroesophageal reflux disease without esophagitis; Translations: [Gastro-esophageal reflux disease without esophagitis] 03-05-2020 Chronic Essential hypertension (20 sources) Essential hypertension; Translations: [Essential (primary) hypertension] Onset: 1 02-19-2021 Chronic Headache; including migraine (7 sources) Headache 12-28-2022 Episodic Inflammation; infection of eye (except that caused by tuberculosis or sexually transmitteddisease) (3 sources) Chronic allergic conjunctivitis; Translations: [Other chronic allergic conjunctivitis] 02-23-2024 Chronic Malaise and fatigue (12 sources) Fatigue; Translations: [Other fatigue] 04-14-2022 Episodic Menopausal disorders (12 sources) Menopausal syndrome; Translations: [Disorder associated with menstruation AND/OR menopause] 02-11-2021 Chronic Nonspecific chest pain (1 source) Chest pain, unspecified; Translations: [Chest pain, unspecified type] Onset: 4 Episodic Nutritional deficiencies (1 source) Vitamin D deficiency; Translations: [Vitamin D deficiency, unspecified] Chronic Other and unspecified benign neoplasm (1 source) Lymphangioma; Translations: [Lymphangioma, any site] 01-29-2025 Episodic Other bone disease and musculoskeletal deformities (4 sources) Osteopenia 06-19-2024 Episodic Other circulatory disease (6 sources) Abnormal carotid arterial pulse 09-08-2023 Episodic Other connective tissue disease (11 sources) Spasm 02-26-2021 Episodic Other connective tissue disease (1 source) Musculoskeletal test abnormal; Translations: [Other symptoms and signs involving the musculoskeletal system] Episodic Other connective tissue disease (3 sources) Pain in left arm; Translations: [Pain in left arm] 03-15-2025 Episodic Other endocrine disorders (1 source) Disorder of endocrine ovary; Translations: [Other ovarian dysfunction] Chronic Other eye disorders (3 sources) Tear film insufficiency; Translations: [Dry eye syndrome of bilateral lacrimal glands] 02-23-2024 Episodic Other gastrointestinal disorders (2 sources) Diarrhea; Translations: [Diarrhea, unspecified] Episodic Other hereditary and degenerative nervous system conditions (7 sources) Intention tremor 12-28-2022 Chronic Other lower respiratory disease (5 sources) Rib pain 02-26-2021 Episodic Other lower respiratory disease (1 source) Dyspnea; Translations: [Shortness of breath] 02-18-2025 Episodic Other lower respiratory disease (1 source) Cough; Translations: [Acute cough] 02-18-2025 Episodic Other lower respiratory disease (1 source) Lower respiratory tract infection; Translations: [Unspecified acute lower respiratory infection] 03-18-2025 Episodic Other nervous system disorders (1 source) Walking disability; Translations: [Difficulty in walking, not elsewhere classified] Chronic Other nervous system disorders (1 source) Lesion of ulnar nerve, left upper limb; Translations: [Entrapment of left ulnar nerve] Onset: Chronic Other nervous system disorders (1 source) Tremor; Translations: [Tremor, unspecified] Episodic Other nervous system disorders (1 source) Paresthesia; Translations: [Paresthesia of skin] Episodic Other nervous system disorders (1 source) Paresthesia of skin; Translations: [Paresthesia of skin] Onset: Episodic Other non-traumatic joint disorders (9 sources) Hip pain 05-12-2022 Episodic Other non-traumatic joint disorders (1 source) Pain in right hip joint; Translations: [Pain in right hip] Episodic Other non-traumatic joint disorders (1 source) Chronic pain of right upper limb; Translations: [Pain in right shoulder] 10-23-2024 Episodic Other nutritional; endocrine; and metabolic disorders (20 sources) Obesity; Translations: [Obesity, unspecified] Onset: 1 03-07-2021 Chronic Other nutritional; endocrine; and metabolic disorders (20 sources) Obese class I; Translations: [Obesity, unspecified] Onset: 3 03-09-2023 Chronic Other screening for suspected conditions (not mental disorders or infectious disease) (9 sources) Echocardiogram abnormal; Translations: [Abnormal findings on diagnostic imaging of heart and coronary circulation] Onset: 4 06-22-2023 Episodic Other skin disorders (9 sources) Loss of hair 09-22-2022 Episodic Other skin disorders (5 sources) Mass of upper limb; Translations: [Localized swelling, mass and lump, left upper limb] 10-24-2024 Episodic Other upper respiratory infections (20 sources) Chronic sinusitis; Translations: [Chronic sinusitis, unspecified] Onset: 2 06-09-2012 Chronic Other upper respiratory infections (2 sources) Acute upper respiratory infection; Translations: [Acute upper respiratory infection, unspecified] 02-18-2025 Episodic Residual codes; unclassified (5 sources) Noncompliance with medication regimen 04-14-2022 Episodic Residual codes; unclassified (6 sources) Postmenopausal state 03-15-2024 Episodic Residual codes; unclassified (2 sources) Pain; Translations: [Pain, unspecified] 09-25-2024 Episodic Residual codes; unclassified (1 source) Pain, unspecified; Translations: [Pain] Onset: 4 Episodic Spondylosis; intervertebral disc disorders; other back problems (20 sources) Prolapsed cervical intervertebral disc without myelopathy; Translations: [Other cervical disc displacement, unspecified cervical region] Onset: 8 02-03-2008 Chronic Spondylosis; intervertebral disc disorders; other back problems (20 sources) Neck pain; Translations: [Sacral back pain] 12-18-2019 Episodic Thyroid disorders (20 sources) Goiter; Translations: [Hypothyroidism] Onset: 3 04-14-2022 Chronic Unclassified (11 sources) Discectomy of spine 02-04-2014 Unclassified (10 sources) Patient encounter status 04-16-2022 Unclassified (6 sources) Benign neoplasm of soft tissues of left upper extremity 09-08-2023 Unclassified (1 source) Post Op Onset: Unclassified (1 source) Obesity, Class I, BMI 30-34.9; Translations: [Obesity, Class I, BMI 30-34.9] Onset: Viral infection (1 source) Herpes zoster without complication; Translations: [Zoster without complications] 12-26-2024 Episodic Past or Other Problems Problem Classification Problem Date Documented Date Episodic/Chronic Acute myocardial infarction (20 sources) ST elevation (STEMI) myocardial infarction of unspecified site; Translations: [Myocardial infarction] Onset: 04-08-2023 Resolved: 04-13-2023 04-13-2023 Chronic Genitourinary symptoms and ill-defined conditions (20 sources) Albuminuria ; Translations: [Proteinuria, unspecified] Onset: 02-19-2021 02-19-2021 Episodic Other aftercare (4 sources) group home (current) use of insulin; Translations: [Type 2 diabetes mellitus with both eyes affected by mild nonproliferative retinopathy without macular edema, with long-term current use of insulin (HCC)] Onset: 03-07-2021 Episodic Other connective tissue disease (2 sources) Pain in left arm; Translations: [Pain in left arm] Onset: 02-14-2025 Episodic Other lower respiratory disease (1 source) Shortness of breath Onset: 06-07-2024 Episodic Other lower respiratory disease (2 sources) Persistent cough; Translations: [Persistent cough] Onset: 03-26-2025 03-26-2025 Episodic Other lower respiratory disease (1 source) Unspecified acute lower respiratory infection; Translations: [Lower resp. tract infection] Onset: 03-18-2025 Episodic Other skin disorders (3 sources) Localized swelling, mass and lump, left upper limb; Translations: [Arm mass, left] Onset: 12-05-2024 Episodic Eliza-; endo-; and myocarditis; cardiomyopathy (except that caused by tuberculosis or sexually transmitted disease) (20 sources) Pericardial effusion; Translations: [Pericardial effusion] Onset: 04-13-2023 04-13-2023 Episodic Residual codes; unclassified (20 sources) Other specified health status; Translations: [Other drug allergy] Onset: 10-18-2023 10-18-2023 Episodic Urinary tract infections (20 sources) Recurrent urinary tract infection; Translations: [Urinary tract infection, site not specified] Onset: 02-19-2021 02-19-2021 Episodic Results Test Name Value Interpretation Reference Range Facility [facility] 06-28-2025 CNOV Office Visit (ENDMED ) KENNY VALADEZ ([id number]) 1955 F Date Time Provider Department 06/28/25 2:45 PM MARY KATE BARBER During your visit today, we recorded the following information about you: Pulse Respiration Blood pressure Weight 81/minute 16/minute 116/82 88.9 kg Height 1.674 m Mary Kate Barber, JEREMIAH.MANAGER NEWS 06/28/2025 3:27 PM Signed Reason for Consultation: DM Type 2 Referring Physician: Luli Perdomo MD [id number] [facility] [address] HISTORY OF PRESENT ILLNESS; Ms. Valadez is a 69 year old female presenting for follow up regarding DM Type 2. She was initially diagnosed with diabetes approx. 2000. She has been on insulin since at least age 55. LV 03/27/25 A1C today is 8.6 History of diabetes, HTN, HLD, peripheral neuropathy, obesity, allergies, thyroid nodule, BELA, NSTEMI s/p stent , microalbuminuria, CKD Denies pancreatitis, medullary TC, gastroparesis Has had more stress over the summer. needs prostate surgery and has had a catheter. Feels she is binge eating at night. Did not tolerate weekly GLP1's Went to [facility] and plans to start hormone supplement for hot flashes. States they also wanted her on thyroid medication to help with energy but it was costly and she declined it. They also put her on vitamin D. CGM was cost prohibitive. She wants to be able to check her glucose 5x per day--with 3 meals, bedtime and AM snack time--however insurance will only pay for 3 strips per day. She is under the care of nephrology, Dr. Perdomo and cardiology Dr. Dodd. Her current diabetes regimen is: Tresiba (u200 pen) 70 units daily at noon Farxiga 10 mg daily Novolog 20 units TID meals plus SS If Blood Glucose (mg/dL) is < 150 Give 0 units 151-200 Give 1 unit 201-250 Give 2 units 251-300 Give 3 units 301-350 Give 4 units >351 Give 5 units Previous DM medications: Glyburide actos janumet Glucotrol Metformin--stomach upset. Levemir--ineffective Trulicity --stomach issues. Ozempic--severe constipation Mounjaro--severe constipation Regarding symptoms of hyperglycemia, she is not experiencing polyuria and polydipsia. Exercise:Mil [facility] is checking her blood glucose 2-3 times per day She did bring a logbook today for review: Consumes one main meal in the evening then snacks through out evening. Fasting: about 200 this AM, 110 yesterday but mostly close to 200. Bedtime: 200's Hypoglycemia frequency: occasionally; feels symptomatically low even in 100 range Hypoglycemia awareness: Yes Overall, the patient has no acute complaints at this time. HTN: Intolerant to KALIE ARB--Entresto HLD: Not currently on a statin. PAST MEDICAL HISTORY Diagnosis Date Arthritis Asthma CERVICAL DISC DISPLACMNT 02/03/2008 Chronic systolic heart failure (HCC) Coronary artery disease Degenerative disc disease Delayed emergence from anesthesia Diabetes mellitus type 2, controlled (HCC) Herniated disc HLD (hyperlipidemia) HTN (hypertension) Ischemic cardiomyopathy Migraines BELA (obstructive sleep apnea) Pericardial effusion (HCC) 04/13/2023 Thyroid nodule Unspecified essential hypertension Essential hypertension PAST SURGICAL HISTORY Procedure Laterality Date ADENOIDECTOMY PRIMARY Adenoidectomy APPENDECTOMY W/ exploratory lap BACK SURGERY HX CHOLECYSTECTOMY PAST SURGICAL HISTORY OF WLE Left arm mass REMV CATARACT EXTRACAP,INSERT LENS Bilateral 09/2023 SKIN BX, 1 LESION 01/19/2025 Left Forearm TONSILLECTOMY PRIMARY/SECONDARY Tonsillectomy VAGINAL HYSTERECTOMY UTERUS 250 GM/< Hysterectomy, vaginal FAMILY HISTORY Problem Relation Age of Onset Heart Mother Allergies Mother Arthritis Mother Asthma Mother Genitourinary () Mother bladder suspension in her 50's Hearing Loss Mother Hypertension Mother Lipids Mother Osteoporosis Mother Heart Father Cancer Father sarcoma Diabetes Father Hearing Loss Father Hypertension Father Lipids Father Stroke Father TIA'S Heart Maternal Grandmother Heart Maternal Grandfather Heart Paternal Grandmother Diabetes Paternal Grandmother other (Goiter) Paternal Grandmother Heart Paternal Grandfather Cancer Paternal Aunt I lost 11 aunts and uncles Cancer Paternal Uncle I lost 11 aunts and uncles Diabetes Paternal Aunt Diabetes Maternal Uncle Headache Daughter migraines Social History Tobacco Use Smoking status: Never Smokeless tobacco: Never Tobacco comments: Secondhand smoke exposure x 30 years (Father and 1st ) Substance Use Topics Alcohol use: Not Currently Drug use: No Current Outpatient Medications Medication Sig Dispense Refill progesterone micronized (PROMETRIUM) 100 mg capsule insulin needles, DISPOSABLE, (BD INSULIN PEN NEEDLE UF) 31 gauge x 5/16 Use 4 pen needles daily. DX: E11.29 400 each 3 (more content not included)... Normal [facility] HEMOGLOBIN A1C (POC)on 06-28 HbA1c (Bld) [Mass fraction] 8.6 % Abnormal 4.3 - 5.6 % [facility] Comment on above: Location:[facility], [address] [place], [address] Point of care (POC) Hemoglobin A1c (HGBA1C) testing is intended to assess glucose control and provide a management tool for patients known to have diabetes and their healthcare providers. Target HGBA1C levels may depend on specific clinical circumstances. POC HGBA1C is not intended for use as a diagnostic or screening test; laboratory-based testing should be used for diagnostic purposes. The following information is supplemental and may not be applicable to specific diabetes management situations: The POC device die cast technician provides a normal range of 4.2% to 6.5% for the HGBA1C POC test. However, the [place] [employer] guidelines indicate that patients with HGBA1C in the range of 5.7% to 6.4% are at increased risk for development of diabetes and that intervention by lifestyle modification may be beneficial. A HGBA1C level greater than or equal to 6.5% is considered diagnostic of diabetes, pending confirmatory testing. Use of HGBA1C testing to evaluate glucose control may not be appropriate for patients with hemoglobin variants or other conditions (e.g. anemia) that alter red blood cell lifespan. Interpretation and review of laboratory results Abnormal [facility] Comprehensive metabolic 2000 panelon 06-23-2025 Albumin [Mass/Vol] 4.3 g/dL Normal 3.9-4.9 [facility] Comment on above: Order Comment: Speci men Type: BLOOD SPECIMENOrdering Facility: [facility] Address: [address] [place] [address] Performed By: #### 2 4323-8, 58493-6 ####[facility] LABCLIA [id number] [place] [address] [place] ALP [Catalytic activity/Vol] 67 U/L Normal 34-123 [facility] Comment on above: Order Comment: Speci men Type: BLOOD SPECIMENOrdering Facility: [facility] Address: [address] [place] [address] Performed By: #### 2 4323-8, 67569-1 ####[facility] LABCLIA [id number] [place] [address] [place] ALT [Catalytic activity/Vol] 12 U/L Normal 7-38 [facility] Comment on above: Order Comment: Speci men Type: BLOOD SPECIMENOrdering Facility: [facility] Address: [address] [place] [address] Performed By: #### 2 4323-8, 12621-6 ####[facility] LABCLIA [id number] [place] [address] [place] Anion gap [Moles/Vol] 13 mmol/L Normal 8-15 [facility] Comment on above: Order Comment: Speci men Type: BLOOD SPECIMENOrdering Facility: [facility] Address: [address] [place] [address] Performed By: #### 2 4323-8, 45850-7 ####[facility] LABCLIA [id number] [facility] [place] [id number] [place] AST [Catalytic activity/Vol] 14 U/L Normal 13-35 [facility] Comment on above: Order Comment: Speci men Type: BLOOD SPECIMENOrdering Facility: [facility] Address: [address] [place], [place] [id number] Performed By: #### 2 4323-8, 29314-3 ####[facility] LABCLIA [id number] [address] [address] [place] Bilirubin [Mass/Vol] 0.5 mg/dL Normal 0.2-1.3 [facility] Comment on above: Order Comment: Speci men Type: BLOOD SPECIMENOrdering Facility: [facility] Address: [address] [place], [place] [address] Performed By: #### 2 4323-8, 87961-5 ####[facility] LABCLIA [id number] [place] [id number] [place] Calcium [Mass/Vol] 9.5 mg/dL Normal 8.5-10.2 [facility] Comment on above: Order Comment: Speci men Type: BLOOD SPECIMENOrdering Facility: [facility] Address: [address] [place], [place] [address] Performed By: #### 2 4323-8, 81399-0 ####[facility] LABCLIA [id number] [place] [id number] [place] Chloride [Moles/Vol] 105 mmol/L Normal 98-107 [facility] Comment on above: Order Comment: Speci men Type: BLOOD SPECIMENOrdering Facility: [facility] Address: [address] [place], [place] [address] Performed By: #### 2 4323-8, 09565-9 ####[facility] LABCLIA [id number] [place] [id number] [place] CO2 [Moles/Vol] 20 mmol/L Low 22-30 [facility] Comment on above: Order Comment: Speci men Type: BLOOD SPECIMENOrdering Facility: [facility] Address: [address] [place], [place] [address] Performed By: #### 2 4323-8, 69381-7 ####[facility] LABIA [id number] [address] [address] [place] Creatinine [Mass/Vol] 0.79 mg/dL Normal 0.58-0.96 [facility] Comment on above: Order Comment: Speci men Type: BLOOD SPECIMENOrdering Facility: [facility] Address: [address] [place] [address] Performed By: #### 2 4323-8, ####[facility] LABIA [id number] [place] [id number] [place] eGFRcr SerPlBld CKD-EPI 2020 81 mL/min/1.73m??? Normal >=60 [facility] Comment on above: Order Comment: Speci men Type: BLOOD SPECIMENOrdering Facility: [facility] Address: [address] [place] [address] Result Comment: Carmen mated Glomerular Filtration Rate (eGFR) is calculated using the 2020 CKD-EPI creatinine equation. This equation utilizes serum creatinine, sex, and age as parameters. The creatinine assay has traceable calibration to isotope dilution-mass spectrometry. Refer to KDIGO guidelines for clinical interpretation. In patients with unstable renal function, e.g. those with acute kidney injury, the eGFR may not accurately reflect actual GFR. Performed By: #### 2 4323-8, 74886-4 ####[facility] LABIA [id number] [address] [address] [place] Glucose [Mass/Vol] 204 mg/dL High 74-99 [facility] Comment on above: Order Comment: Speci men Type: BLOOD SPECIMENOrdering Facility: [facility] Address: [address] [place] [address] Result Comment: The [place] Diabetes Association (ADA) provides guidance for cutoff values for fasting glucose and random glucose. The ADA defines fasting as no caloric intake for at least 8 hours. Fasting plasma glucose results between 100 to 125 mg/dL indicate increased risk for diabetes (prediabetes). Fasting plasma glucose results greater than or equal to 126 mg/dL meet the criteria for diagnosis of diabetes. In the absence of unequivocal hyperglycemia, results should be confirmed by repeat testing. In a patient with classic symptoms of hyperglycemia or hyperglycemic crisis, random plasma glucose results greater than or equal to 200 mg/dL meet the criteria for diagnosis of diabetes. Reference: Standards of Medical Care in Diabetes 2016, [place] Diabetes Association. Diabetes Care. 2016.39(Suppl 1). Performed By: #### 2 4323-8, 66418-1 ####[facility] LABCLIA [id number] [place] [address] [place] Potassium [Moles/Vol] 4.1 mmol/L Normal 3.7-5.1 [facility] Comment on above: Order Comment: Speci men Type: BLOOD SPECIMENOrdering Facility: [facility] Address: [address] [place] [address] Performed By: #### 2 4323-8, ####[facility] LABIA [id number] [place] [address] [place] Protein [Mass/Vol] 7.2 g/dL Normal 6.3-8.0 [facility] Comment on above: Order Comment: Speci men Type: BLOOD SPECIMENOrdering Facility: [facility] Address: [address] [place] [address] Performed By: #### 2 4323-8, ####[facility] LABIA [id number] [place] [id number] [place] Sodium [Moles/Vol] 138 mmol/L Normal 136-144 [facility] Comment on above: Order Comment: Speci men Type: BLOOD SPECIMENOrdering Facility: [facility] Address: [address] [place] [address] Performed By: #### 2 4323-8, 89899-7 ####[facility] LABCLIA [id number] [place] [id number] [place] Urea nitrogen [Mass/Vol] 18 mg/dL Normal 7-21 [facility] Comment on above: Order Comment: Speci men Type: BLOOD SPECIMENOrdering Facility: [facility] Address: [address] [place] [address] Performed By: #### 2 4323-8, 79478-6 ####[facility] LABCLIA [id number] [facility] [address] [address] [place] Lipid 1996 panelon 5 Cholesterol [Mass/Vol] 174 mg/dL Normal <200 [facility] Comment on above: Order Comment: Speci men Type: BLOOD SPECIMENOrdering Facility: [facility] Address: [address] [place] [address] Result Comment: <200 mg/dL, Desirable 200-239 mg/dL, Borderline high >239 mg/dL, High Performed By: #### 2 4323-8, 93206-3 ####[facility] LABCLIA [id number] [address], [address] [place] Cholesterol in HDL [Mass/Vol] 29 mg/dL Low >39 [facility] Comment on above: Order Comment: Speci men Type: BLOOD SPECIMENOrdering Facility: [facility] Address: [address] [place] [address] Result Comment: 40-5 9 mg/dL, Acceptable >59 mg/dL, High: Negative risk factor for coronary heart disease <40 mg/dL, Low: Positive risk factor for coronary heart disease Performed By: #### 2 4323-8, 93888-8 ####[facility] LABCLIA [id number] [facility] [id number], [facility] [place] Cholesterol in LDL [Mass/Vol] 106 mg/dL High <100 [facility] Comment on above: Order Comment: Speci men Type: BLOOD SPECIMENOrdering Facility: [facility] Address: [address] [place] [address] Result Comment: <100 mg/dL, Optimal 100-129 mg/dL, Near optimal/above optimal 130-159 mg/dL, Borderline high 160-189 mg/dL, High >189 mg/dL, Very high Secondary prevention optimal LDL Cholesterol levels are recommended to be <70 mg/dL LDL cholesterol is calculated using the Cabrera-NIH equation. Performed By: #### 2 4323-8, 78694-0 ####[facility] LABCLIA [id number] [address] [address] [place] Cholesterol in LDL/Cholesterol in HDL [Mass ratio] 3.66 {ratio} High <2.54 [facility] Comment on above: Order Comment: Speci men Type: BLOOD SPECIMENOrdering Facility: [facility] Address: [address] [place] [address] Result Comment: Refe jasonce: 1. National Cholesterol Education Program ATP III Guideline At-A-Glance Quick Desk Reference: National Heart, Lung, and Blood Duncan. National Institutes of Health. 2001: NIH Publication No. 01-3305. 2. An International Atherosclerosis Society position paper: global recommendations for the management of dyslipidemia: executive summary, Atherosclerosis. 2014: 232(2):410-413. Performed By: #### 2 4323-8, ####[facility] LABIA [id number] [place] [id number] [place] Cholesterol in VLDL [Mass/Vol] 38 mg/dL High <30 [facility] Comment on above: Order Comment: Hai men Type: BLOOD SPECIMENOrdering Facility: [facility] Address: [address] [place] [address] Performed By: #### 2 4323-8, ####[facility] LABIA [id number] [address] [address] [place] Cholesterol non HDL [Mass/Vol] 145 mg/dL High <130 [facility] Comment on above: Order Comment: Niranjani men Type: BLOOD SPECIMENOrdering Facility: [facility] Address: [address] [place] [address] Result Comment: <130 mg/dL, Optimal 130-159 mg/dL, Near optimal/above optimal 160-189 mg/dL, Borderline high 190-219 mg/dL, High >219 mg/dL, Very high Secondary prevention optimal non HDL Cholesterol levels are recommended to be <100 mg/dL Performed By: #### 2 4323-8, 43354-6 ####[facility] LABCLIA [id number] [address] Cholesterol.total/Cho lesterol in HDL [Mass ratio] 6.00 {ratio} High <5.10 [facility] Comment on above: Order Comment: Speci men Type: BLOOD SPECIMENOrdering Facility: [facility] Address: [address] [place] [address] Performed By: #### 2 4323-8, 97699-8 ####[facility] LABIA [id number] [address] FASTING TIME 12 hrs Normal [facility] Comment on above: Order Comment: Speci men Type: BLOOD SPECIMENOrdering Facility: [facility] Address: [address] [place] [address] Performed By: #### 2 4323-8, 36796-9 ####[facility] LABIA [id number] [address] [place] Triglyceride [Mass/Vol] 226 mg/dL High <150 [facility] Comment on above: Order Comment: Speci men Type: BLOOD SPECIMENOrdering Facility: [facility] Address: [address] [place] [address] Result Comment: <150 mg/dL, Normal 150-199 mg/dL, Borderline high 200-499 mg/dL, High >499 mg/dL, Very high Performed By: #### 2 4323-8, 64693-5 ####[facility] LABIA [id number] [address] [place] CNOVon 04-04-2025 CNOV Office Visit (AGGENS 3) KENNY VALDAEZ ([id number]) 1955 F Date Time Provider Department 04/04/25 3:45 PM PHIL LAWTON AGGENS3 During your visit today, we recorded the following information about you: Pulse Blood pressure Height 97/minute 132/80 1.674 m Phil Lawton MD 04/04/2025 4:26 PM Signed Phil Lawton M.D. Surgical Oncology [address] [facility], [address] [place] [address] Kenny is a 69-year-old female presenting for follow-up of persistent left upper extremity neuropathic symptoms following excision of a subcutaneous hemangioma on the left forearm on 02/09/2025. Kenny reports persistent neuropathic symptoms in the left upper extremity, including paresthesias, numbness, and tingling extending from the arm to the hand, which she believes are related to her recent surgery. She notes that these symptoms were present prior to the excision but have worsened postoperatively. Additionally, she now experiences constant pain in the left hand, which was not present before the surgery. The pain is described as severe, particularly at night, affecting her sleep. She finds some relief when lying on her left arm, though this position is not her usual sleeping position. She has attempted various non-pharmacological interventions, including the application of ice and heat, use of a massager, and wrapping the arm, but these measures have not provided significant relief. She also completed three weeks of physical therapy without improvement. 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 She expresses reluctance to use medications that may affect her mental clarity. The ROS, medical, surgical, family, and social history were reviewed by Phil Lawton MD. BP 132/80 Pulse 97 Ht 167.4 cm (5' 5.9) SpO2 98% BMI 30.62 kg/m? No weight on file for this encounter. Physical Exam Constitutional: General: She is not in acute distress. HENT: Head: Normocephalic and atraumatic. Eyes: Pupils: Pupils are equal, round, and reactive to light. Neck: Thyroid: No thyromegaly. Trachea: No tracheal deviation. Cardiovascular: Rate and Rhythm: Normal rate and regular rhythm. Heart sounds: Normal heart sounds. Pulmonary: Effort: Pulmonary effort is normal. No respiratory distress. Breath sounds: Normal breath sounds. No stridor. Abdominal: General: There is no distension. Palpations: Abdomen is soft. Tenderness: There is no abdominal tenderness. Musculoskeletal: General: No deformity. Normal range of motion. Skin: General: Skin is warm and dry. Findings: No erythema or rash. Comments: Well healed surgical site with no swelling or signs of infection Neurological: Mental Status: She is alert and oriented to person, place, and time. Psychiatric: Mood and Affect: Affect normal. Judgment: Judgment normal. 1. 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 Symptoms include neuropathy, paresthesias, numbness, and tingling extending from the arm to the hand, which are unrelated to the previous surgery. Referred to Dr. Acosta, a hand surgeon, for further evaluation and management. Discussed potential use of gabapentin at a lower dose to be taken at night to alleviate nerve pain; patient agreed to try this approach. 2. Hemangioma of skin (D18.01) - Subcutaneous hemangioma of the forearm was excised on February 09, 2025. Post-operative MRI showed normal changes at the surgical site with no concerning findings. No further treatment required for the hemangioma at this time. Recording using Marqui software for draft documentation of the visit was discussed with the patient/authorized insurance account representative; all questions welcomed and answered. Patient/authorized insurance account representative agreed to proceed Phil Lawton MD 04/04/2025 4:25 PM Referring Provider: PHIL LAWTON [[id number]] Allergies As of Date: 04/04/2025 Noted Allergy Reaction ANIMAL DANDER 04/08/2023 9 - Itching Comments: Itchy watery eyes, sneezing IMITREX (SUMATRIPTAN) 04/07/2023 14 - Other: See Comments NARCOTICS (OPIOIDS - MORPHINE LOYD*02/08/2025 14 - Other: See Comments Comments: Most narcotics keep her awake for 3 days per pt, does well with tylenol with codeine per pt OZEMPIC (SEMAGLUTIDE) 06/07/2024 5 - Intolerance Comments: Constipation PROPOXYPHENE 02/23/2024 14 - Other: See Comments STEROIDS (BETAMETHASONE DIPROPION*01/31/2008 STEROIDS (CORTICOSTEROIDS (GLUCOC*10/24/2024 14 - Other: See Comments Comments: blindness Date Reviewed: 04/04/2025 Reviewed by: Phil Lawton MD - Fully Assessed (more content not included)... Normal [facility] CNOVon 03-27-2025 CNOV Office Visit (ENDMED ) RORYKENNY Jazmín ([id number]) 1955 F Date Time Provider Department 03/27/25 3:15 PM MARY KATE BARBER During your visit today, we recorded the following information about you: Pulse Respiration Blood pressure Weight 91/minute 16/minute 137/86 85.8 kg Height 1.676 m Mary Kate Barber APRN.CNP 03/27/2025 3:36 PM Signed Reason for Consultation: DM Type 2 Referring Physician: Luli Perdomo MD [address] [facility] [address] HISTORY OF PRESENT ILLNESS; Ms. Valadez is a 69 year old female presenting for follow up regarding DM Type 2. She was initially diagnosed with diabetes approx. 2000. She has been on insulin since at least age 55. LV 12/21/24 A1C today is 7.6. Down from 8.3 in December History of diabetes, HTN, HLD, peripheral neuropathy, obesity, allergies, thyroid nodule, BELA, NSTEMI s/p stent , microalbuminuria, CKD Denies pancreatitis, medullary TC, gastroparesis Currently dealing with Bronchitis. Sick for 12 days so far. Was given ATB and steroids but has not yet started steroids due to concern from a reaction she had previously. Eating more fast food while sick. CGM was cost prohibitive. She wants to be able to check her glucose 5x per day--with 3 meals, bedtime and AM snack time--however insurance will only pay for 3 strips per day. She is under the care of nephrology, Dr. Perdomo and cardiology Dr. Dodd. Her current diabetes regimen is: Tresiba (u200 pen) 70 units daily at noon Farxiga 10 mg daily Novolog 20 units TID meals plus SS If Blood Glucose (mg/dL) is < 150 Give 0 units 151-200 Give 1 unit 201-250 Give 2 units 251-300 Give 3 units 301-350 Give 4 units >351 Give 5 units Previous DM medications: Glyburide actos janumet Glucotrol Metformin--stomach upset. Levemir--ineffective Trulicity --stomach issues. Ozempic--severe constipation Mounjaro--severe constipation Regarding symptoms of hyperglycemia, she is not experiencing polyuria and polydipsia. Exercise:Mil Cox is checking her blood glucose 3-4 times per day She did bring a logbook today for review: Fastin 10:30 AM : 141 1:30: lunch time: 234 acS (5-7:30 dinner): HS Hypoglycemia frequency: occasionally; feels symptomatically low even in 100 range Hypoglycemia awareness: Yes Overall, the patient has no acute complaints at this time. HTN: Intolerant to KALIE ARB--Entresto HLD: Not currently on a statin. PAST MEDICAL HISTORY Diagnosis Date Arthritis Asthma CERVICAL DISC DISPLACMNT 02/03/2008 Chronic systolic heart failure (HCC) Coronary artery disease Degenerative disc disease Delayed emergence from anesthesia Diabetes mellitus type 2, controlled (HCC) Herniated disc HLD (hyperlipidemia) HTN (hypertension) Ischemic cardiomyopathy Migraines BELA (obstructive sleep apnea) Pericardial effusion (HCC) 04/13/2023 Thyroid nodule Unspecified essential hypertension Essential hypertension PAST SURGICAL HISTORY Procedure Laterality Date ADENOIDECTOMY PRIMARY Adenoidectomy APPENDECTOMY W/ exploratory lap BACK SURGERY HX CHOLECYSTECTOMY PAST SURGICAL HISTORY OF WLE Left arm mass REMV CATARACT EXTRACAP,INSERT LENS Bilateral 09/2023 SKIN BX, 1 LESION 01/19/2025 Left Forearm TONSILLECTOMY PRIMARY/SECONDARY Tonsillectomy VAGINAL HYSTERECTOMY UTERUS 250 GM/< Hysterectomy, vaginal FAMILY HISTORY Problem Relation Age of Onset Heart Mother Allergies Mother Arthritis Mother Asthma Mother Genitourinary () Mother bladder suspension in her 50's Hearing Loss Mother Hypertension Mother Lipids Mother Osteoporosis Mother Heart Father Cancer Father sarcoma Diabetes Father Hearing Loss Father Hypertension Father Lipids Father Stroke Father TIA'S Heart Maternal Grandmother Heart Maternal Grandfather Heart Paternal Grandmother Diabetes Paternal Grandmother other (Goiter) Paternal Grandmother Heart Paternal Grandfather Cancer Paternal Aunt I lost 11 aunts and uncles Cancer Paternal Uncle I lost 11 aunts and uncles Diabetes Paternal Aunt Diabetes Maternal Uncle Headache Daughter migraines Social History Tobacco Use Smoking status: Never Smokeless tobacco: Never Tobacco comments: Secondhand smoke exposure x 30 years (Father and 1st ) Substance Use Topics Alcohol use: Not Currently Drug use: No Current Outpatient Medications Medication Sig Dispense Refill albuterol HFA (PROVENTIL HFA, VENTOLIN HFA) 90 mcg/actuation inhaler Inhale 2 puffs as instructed every 4 hours as needed for wheezing/shortness of breath. 1 each 0 Promethazine-DM (PHENERGAN-DM) 6.25-15 mg/5 mL syrup Take 5 mL by mouth four times a day as needed. 118 mL 0 methylPREDNISolone (MEDROL, ALBERTO,) 4 mg Dose-Pack Take as instructed per package. 21 tablet 0 albuterol HFA (P (more content not included)... Normal [facility] HEMOGLOBIN A1C (POC)on 03-27 HbA1c (Bld) [Mass fraction] 7.6 % Abnormal 4.3 - 5.6 % [facility] Comment on above: Location:[facility], [address] [place] [address], [address] Point of care (POC) Hemoglobin A1c (HGBA1C) testing is intended to assess glucose control and provide a management tool for patients known to have diabetes and their healthcare providers. Target HGBA1C levels may depend on specific clinical circumstances. POC HGBA1C is not intended for use as a diagnostic or screening test; laboratory-based testing should be used for diagnostic purposes. The following information is supplemental and may not be applicable to specific diabetes management situations: The POC device die cast technician provides a normal range of 4.2% to 6.5% for the HGBA1C POC test. However, the [place] Diabetes Association guidelines indicate that patients with HGBA1C in the range of 5.7% to 6.4% are at increased risk for development of diabetes and that intervention by lifestyle modification may be beneficial. A HGBA1C level greater than or equal to 6.5% is considered diagnostic of diabetes, pending confirmatory testing. Use of HGBA1C testing to evaluate glucose control may not be appropriate for patients with hemoglobin variants or other conditions (e.g. anemia) that alter red blood cell lifespan. Interpretation and review of laboratory results Abnormal [facility] CNOVon 03-26-2025 CNOV Office Visit (YOLIWA ) KENNY VALADEZ ([id number]) 1955 F Date Time Provider Department 03/26/25 4:35 PM VALERIANO SOLITAIRO During your visit today, we recorded the following information about you: Temperature Pulse Blood pressure Weight 98.4 degrees 90/minute 128/72 85.5 kg Valeriano Solitario PA-C 03/26/2025 5:14 PM Signed [facility] Subjective Patient presents with: Fever Viral Syndrome: She went to and Pcp has had antibiotics finished the most recent dose yesterday . Shortness of Breath Kenny Valadez is a 69 year old female with a past medical history of diabetes, hypertension, CHF, and CAD who presents to [facility] today for evaluation of cough, shortness of breath, and wheezing. Patient states that she was seen by her primary care provider when this first started and was given a Z-Alberto. She states that she then followed up at [facility] in [place] when her symptoms were not getting better and was given a prescription for doxycycline. She states that she was also given a prescription for an albuterol inhaler but lost the inhaler. She states that she took the doxycycline as prescribed but does not feel better. Review of Systems Constitutional: Negative for chills, diaphoresis and fever. HENT: Negative for congestion and ear pain. Eyes: Negative for discharge and redness. Respiratory: Positive for cough, shortness of breath and wheezing. Skin: Negative for rash and wound. All other systems reviewed and are negative. Objective Wt 85.5 kg (188 lb 6.1 oz) BMI 30.41 kg/m? Physical Exam Vitals reviewed. Constitutional: General: She is not in acute distress. Appearance: Normal appearance. She is normal weight. She is not ill-appearing or toxic-appearing. Comments: The patient appears to be non-toxic, in no acute distress, and resting comfortably on the table. HENT: Head: Normocephalic and atraumatic. Cardiovascular: Rate and Rhythm: Normal rate and regular rhythm. Heart sounds: Normal heart sounds. No murmur heard. No friction rub. No gallop. Pulmonary: Effort: Pulmonary effort is normal. No respiratory distress. Breath sounds: Normal breath sounds. No wheezing. Musculoskeletal: General: Normal range of motion. Cervical back: Normal range of motion. Skin: General: Skin is warm and dry. Findings: No erythema or rash. Neurological: General: No focal deficit present. Mental Status: She is alert and oriented to person, place, and time. Mental status is at baseline. Psychiatric: Mood and Affect: Mood normal. Behavior: Behavior normal. Thought Content: Thought content normal. MDM Lungs are clear to auscultation bilaterally. Patient is talking in full and complete sentences. Patient's oxygen saturation is 98% on room air. Suspect symptoms are due to viral infection. Patient counseled regarding suspected diagnosis and given a prescription for albuterol inhaler and Promethazine DM. Patient does have steroids listed as an allergy but states that it is only when she used an oral steroid rinse. She states that she has taken steroid pills in the past without issue and feels that she needs steroids now. Patient given a prescription for Medrol Dosepak. Advised to follow-up with primary care as needed. ASSESSMENT/PLAN: 1. Persistent cough - ICD9: 786.2, ICD10: R05.3 - ALBUTEROL SULFATE HFA 90 MCG/ACTUATION AEROSOL INHALER - PROMETHAZINE-DM 6.25 MG-15 MG/5 ML ORAL SYRUP - METHYLPREDNISOLONE 4 MG TABLETS IN A DOSE PACK Medical Decision Making: Problems: Low: Acute, uncomplicated illness or injury Risk: Minimal: Minimal risk from testing/treatment Moderate: Drug management Medical Decision Making Level: 3 - Low I spent a total of 20 minutes on the date of the service which included preparing to see the patient, [id number] patient care, completing clinical documentation, performing a medically appropriate examination, counseling and educating the patient/family/caregiv er, and ordering medications, tests, or procedures. Valeriano Solitario PA-C Procedures Valeriano Solitario PA-C 03/26/2025 5:08 PM Signed A cough is your body's response to something that bothers your throat or airways. Many things can cause a cough. You might cough because of a cold or the flu, bronchitis, or asthma. Smoking, postnasal drip, allergies, and stomach acid that backs up into your throat also can cause coughs. A cough is a symptom, not a disease. Most coughs stop when the cause, such as a cold, goes away. You can take a few steps at home to cough less and feel better. Follow-up care is a gonzalez part of your treatment and safety. Be sure to make and go to all appointments, and call your doctor if you are having problems. It's also a good idea to know your test results and keep a list of the medicines you take. How can you care for yourself (more content not included)... Normal [facility] CNOVon 03-18-2025 CNOV Office Visit (UCWSTR ) KENNY VALADEZ ([id number]) 1955 F Date Time Provider Department 03/18/25 2:15 PM ROBERT COLLADO [facility] During your visit today, we recorded the following information about you: Temperature Pulse Respiration Blood pressure 100.7 degrees 106/minute 24/minute 131/72 Weight 83 kg Robert Collado PA 03/18/2025 2:35 PM Signed [facility] Subjective Kennycaroline Valadez is a 69 year old female. Patient presents with: Flu Like Symptoms: X2 days HPI 69-year-old female presents for cough, chest congestion, fever x 2 days. Patient states Wednesday started getting sick with cough and fever. Cough is dry. She has some shortness of breath. No chest pain. She feels congested in the chest. She has had fevers for the past 2 days. She has been taking Tylenol, Motrin. She saw her PCP on Wednesday and had a chest x-ray. She states she is unsure what the result of the chest x-ray was that she never called her. She states she was started on azithromycin prior to the x-ray being completed and she never got a call to stop the medication. She is on day 3 as of azithromycin with no improvement in symptoms. She denies any nasal congestion. She has no history of COPD or asthma. States her physician on Wednesday also gave her an inhaler which she has used. She does report minimal improvement with the inhaler. No other complaint. PAST MEDICAL HISTORY Diagnosis Date Arthritis Asthma CERVICAL DISC DISPLACMNT 02/03/2008 Chronic systolic heart failure (HCC) Coronary artery disease Degenerative disc disease Delayed emergence from anesthesia Diabetes mellitus type 2, controlled (HCC) Herniated disc HLD (hyperlipidemia) HTN (hypertension) Ischemic cardiomyopathy Migraines BELA (obstructive sleep apnea) Pericardial effusion (HCC) 04/13/2023 Thyroid nodule Unspecified essential hypertension Essential hypertension PAST SURGICAL HISTORY Procedure Laterality Date ADENOIDECTOMY PRIMARY Adenoidectomy APPENDECTOMY W/ exploratory lap BACK SURGERY HX CHOLECYSTECTOMY PAST SURGICAL HISTORY OF WLE Left arm mass REMV CATARACT EXTRACAP,INSERT LENS Bilateral 09/2023 SKIN BX, 1 LESION 01/19/2025 Left Forearm TONSILLECTOMY PRIMARY/SECONDARY Tonsillectomy VAGINAL HYSTERECTOMY UTERUS 250 GM/< Hysterectomy, vaginal ALLERGIES Animal Dander, Imitrex [Sumatriptan], Narcotics [Opioids - Morphine Analogues], Ozempic [Semaglutide], Propoxyphene, Steroids [Betamethasone Dipropionate], and Steroids [Corticosteroids (Glucocorticoids)] MEDICATIONS albuterol HFA (PROVENTIL HFA, VENTOLIN HFA) 90 mcg/actuation inhaler Inhale 2 puffs as instructed every 6 hours as needed. azithromycin (ZITHROMAX) 250 mg tablet Take 250 mg by mouth. Benzonatate 200 mg capsule metroNIDAZOLE 0.75 % cream APPLY TO FACE EVERY MORNING AND EVERY EVENING ezetimibe (ZETIA) 10 mg tablet Take 1 tablet by mouth once daily. carvedilol (COREG) 3.125 mg tablet TAKE 1 TABLET BY MOUTH TWICE A DAY WITH FOOD ENTRESTO 24-26 mg tablet TAKE 1 TABLET BY MOUTH TWICE A DAY blood sugar diagnostic (ONETOUCH ULTRA TEST) test strip Use as instructed to test blood sugar 5 times daily. DX: E11.42, insulin dependent. NOVOLOG FLEXPEN U-100 INSULIN 100 unit/mL (3 mL) INJECT SUBCUTANEOUSLY BREAKFAST 20 UNITS, LUNCH 20 UNITS , DINNER 20 UNITS PLUS SCALE UP TO 70 UNITS DAILY cycloSPORINE (RESTASIS) 0.05 % ophthalmic emulsion Use 1 Drop in both eyes two times a day. spironolactone (ALDACTONE) 25 mg tablet Take 0.5 tablets by mouth three times a week. nitroglycerin sublingual (NITROQUICK) 0.4 mg SL tablet Dissolve 1 tablet under the tongue every 5 minutes as needed for chest pain. TRESIBA FLEXTOUCH U-200 200 unit/mL (3 mL) injection Inject subcutaneously 70 units daily dapagliflozin propanediol (FARXIGA) 10 mg tablet Take 1 tablet by mouth daily with breakfast. clopidogrel (PLAVIX) 75 mg tablet Take 1 tablet by mouth once daily. diphenhydrAMINE (BENADRYL ALLERGY) 12.5 mg/5 mL liquid Take 12.5 mg by mouth at bedtime as needed. insulin needles, DISPOSABLE, (BD INSULIN PEN NEEDLE UF) 31 gauge x 5/16 Use 4 pen needles daily Multivitamin capsule Take 1 capsule by mouth once daily. aspirin, enteric coated (ASPIRIN, ENTERIC COATED) 81 mg EC tablet Take 1 tablet by mouth once daily. doxycycline monohydrate 100 mg tablet Take 1 tablet by mouth two times a day for 7 days. benzonatate (TESSALON PERLE) 100 mg capsule Take 1 capsule by mouth three times a day as needed. ipratropium bromide (ATROVENT) 42 mcg (0.06 %) nasal spray ibuprofen (MOTRIN) 800 mg tablet Diclofenac Sodium 3 % gel Apply 0.5 g to affected area two times a day. FAMILY HISTORY Problem Relation Age of Onset Heart Mother Allergies Mother Arthritis Mother Asthma Mother Genitourinary () Mother bladder suspension in her 50's Hearing Loss Moth (more content not included)... Normal [facility] XR CHEST 2 VIEWSon 5 XR CHEST 2 VIEWS ORIGINAL EXAMINATION: TWO XRAY VIEWS OF THE CHEST 03/16/2025 3:44 pm COMPARISON: Chest x-ray on 11/20/2017 HISTORY: ORDERING SYSTEM PROVIDED HISTORY: Reason for Exam: Cough and shortness of breath. Rule out pneumonia. FINDINGS: The heart size and mediastinal contours are normal. There is no lung infiltrate or pulmonary edema. No pleural fluid or pneumothorax is present. There is mild thoracic spondylosis. No acute skeletal abnormality is detected. IMPRESSION: No acute cardiopulmonary process. Interpreted by: Wesley Guo MD Preliminary Report By: Wesley Guo MD Electronically signed By Wesley Guo MD Dictated Date: 03/18/2025 6:30:49 AM Prelim Date: 03/18/2025 6:31:34 AM Sign Date: 03/18/2025 6:31:34 AM Ordering Provider: WESTON RODRIGUES [facility] MR Forearm - left WO and W c ontrast Silvia 03-15-2025 IMPRESSION: Postoperative changes in the left forearm from prior hemangioma resection without evidence of residual disease. Mild enlargement of the ulnar nerve within the cubital tunnel, which can be seen normally or or the setting of mild neuritis. Casting Machine Set Up Operator[facility] Transcribe Date/Time: Mar 15 2025 9:37P Dictated by : SUSHIL SMALLS MD This examination was interpreted and the report reviewed and electronically signed by: SUSHIL SMALLS MD on Mar 15 2025 10:36PM [facility] DIVISION OF RADIOLOGY * * *Final Report* * * DATE OF EXAM: Mar 15 2025 11:34AM [facility] 0220 - MRI LOWER ARM WO/W IVCON LT / PROCEDURE REASON: Left arm pain * * * * Physician Interpretation * * * * EXAMINATION: MRI LOWER ARM WO/W IVCON LT HISTORY: Left arm pain. 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 TECHNIQUE: Routine MRI of the left forearm without and with contrast; 8 mL Elucirem IV COMPARISON: Left forearm ultrasound 12/05/2024 RESULT: Postoperative changes in the dorsoulnar aspect of the left mid-distal forearm from prior mass resection, with unorganized fluid and enhancement in the resection bed within the subcutaneous tissues. No masslike enhancement in the resection bed. No organized fluid collection. Possible persistent median artery. Normal appearance of the median nerve. Mild enlargement and signal hyperintensity within the ulnar nerve within the cubital tunnel without associated enhancement or abrupt caliber change. The neurovascular structures are otherwise unremarkable. Muscle bulk and signal intensity are within normal limits. Bone marrow signal intensity is within normal limits also. Ganglion measuring approximately 7 x 5 mm arising from the volar aspect of the radiocarpal joint. Large field of view images of the joints are otherwise without overt abnormality. No other significant findings. Localizer images: No significant additional findings. DIVISION OF RADIOLOGY Provider, [facility] - 03/15/2025 * * *Final Report* * * DATE OF EXAM: Mar 15 2025 11:34AM [facility] 0220 - MRI LOWER ARM WO/W IVCON LT / PROCEDURE REASON: Left arm pain * * * * Physician Interpretation * * * * EXAMINATION: MRI LOWER ARM WO/W IVCON LT HISTORY: Left arm pain. 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 TECHNIQUE: Routine MRI of the left forearm without and with contrast; 8 mL Elucirem IV COMPARISON: Left forearm ultrasound 12/05/2024 RESULT: Postoperative changes in the dorsoulnar aspect of the left mid-distal forearm from prior mass resection, with unorganized fluid and enhancement in the resection bed within the subcutaneous tissues. No masslike enhancement in the resection bed. No organized fluid collection. Possible persistent median artery. Normal appearance of the median nerve. Mild enlargement and signal hyperintensity within the ulnar nerve within the cubital tunnel without associated enhancement or abrupt caliber change. The neurovascular structures are otherwise unremarkable. Muscle bulk and signal intensity are within normal limits. Bone marrow signal intensity is within normal limits also. Ganglion measuring approximately 7 x 5 mm arising from the volar aspect of the radiocarpal joint. Large field of view images of the joints are otherwise without overt abnormality. No other significant findings. Localizer images: No significant additional findings. IMPRESSION IMPRESSION: Postoperative changes in the left forearm from prior hemangioma resection without evidence of residual disease. Mild enlargement of the ulnar nerve within the cubital tunnel, which can be seen normally or or the setting of mild neuritis. Casting Machine Set Up Operator: MAJO Transcribe Date/Time: Mar 15 2025 9:37P Dictated by : SUSHIL SMALLS MD This examination was interpreted and the report reviewed and electronically signed by: SUSHIL SMALLS MD on Mar 15 2025 10:36PM EST [facility] Radiology Study observation (narrative) [facility] MR Forearm - left WO and W c ontrast IVOrdered By: [facility] Provider on 03-15-2025 [facility] MRI LOWER ARM WO/W IVCON LTo n 03-15-2025 MRI LOWER ARM WO/W IVCON LT * * *Final Report* * * DATE OF EXAM: Mar 15 2025 11:34AM M 0220 - MRI LOWER ARM WO/W IVCON LT / PROCEDURE REASON: Left arm pain * * * * Physician Interpretation * * * * EXAMINATION: MRI LOWER ARM WO/W IVCON LT HISTORY: Left arm pain. 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 TECHNIQUE: Routine MRI of the left forearm without and with contrast; 8 mL Elucirem IV COMPARISON: Left forearm ultrasound 12/05/2024 RESULT: Postoperative changes in the dorsoulnar aspect of the left mid-distal forearm from prior mass resection, with unorganized fluid and enhancement in the resection bed within the subcutaneous tissues. No masslike enhancement in the resection bed. No organized fluid collection. Possible persistent median artery. Normal appearance of the median nerve. Mild enlargement and signal hyperintensity within the ulnar nerve within the cubital tunnel without associated enhancement or abrupt caliber change. The neurovascular structures are otherwise unremarkable. Muscle bulk and signal intensity are within normal limits. Bone marrow signal intensity is within normal limits also. Ganglion measuring approximately 7 x 5 mm arising from the volar aspect of the radiocarpal joint. Large field of view images of the joints are otherwise without overt abnormality. No other significant findings. Localizer images: No significant additional findings. IMPRESSION: Postoperative changes in the left forearm from prior hemangioma resection without evidence of residual disease. Mild enlargement of the ulnar nerve within the cubital tunnel, which can be seen normally or or the setting of mild neuritis. Casting Machine Set Up Operator: [id number] Transcribe Date/Time: Mar 15 2025 9:37P Dictated by : SUSHIL SMALLS MD This examination was interpreted and the report reviewed and electronically signed by: SUSHIL SMALLS MD on Mar 15 2025 10:36PM EST [id number] Normal [facility] CNOVon 02-21-2025 CNOV Office Visit (AGGENS 3) KENNY VALADEZ ([id number]) 1955 F Date Time Provider Department 02/21/25 3:00 PM ASHVIN MUNGUIA AGGENS3 During your visit today, we recorded the following information about you: Ashvin Munguia PA-C 02/22/2025 11:10 AM Signed Ashvin Munguia PA-C [facility] Surgery and Surgical Oncology [address] [place] [address], [facility] [address] [address] SUBJECTIVE CHIEF COMPLAINT: Post-op visit HISTORY OF PRESENT ILLNESS: Ms. Valadez is a 69 year old female who presents for post-operative follow up from wide local excision of left arm mass on 02/09/[address] Lawton. Since surgery Ms. Kenny Valadez has been recovering at home. She continues to report numbness and tingling in her posterior left upper arm and all her fingers that has not improved following surgery. She went to physical therapy per orthopedics recommendation without benefit. She also had a stress test to rule out cardiac etiology and it was normal. No fever/chills. No arm weakness. No swelling at incision site. OBJECTIVE There were no vitals taken for this visit. No weight on file for this encounter. Physical Exam: General: The patient is seated in no acute distress Respiratory: The patient is breathing comfortably on room air Skin: L forearm Incision intact without erythema, edema, or discharge. Non tender to palpation Neurologic: The patient is alert and oriented to person, place, and time. DATA: Pathology Report: FINAL DIAGNOSIS A. Soft tissue, left forearm mass, resection: - Benign hemangioma. ASSESSMENT Hemangioma LUE pain PLAN Ms. Valadez is a 69 year old female s/p WLE of upper extremity mass on 02/09/25 and is recovering well, but has ongoing LUE sypmtoms. - reviewed pathology report with patient, no evidence of malignancy noted - discussed continuing physical therapy for arm numbness and tingling - will request MRI to rule out cubital vs carpal tunnel, but will need to follow back up with orthopedics for definitive management - no further intervention from surgical oncology perspective Ashvin Munguia PA-C 02/22/2025 11:04 AM I spent a total of 30 minutes on the date of the service which included preparing to see the patient, [id number] patient care, completing clinical documentation, performing a medically appropriate examination, counseling and educating the patient/family/caregiv er, ordering medications, tests, or procedures, and communicating results to the patient/family/caregiv er. Allergies As of Date: 02/21/2025 Noted Allergy Reaction ANIMAL DANDER 04/08/2023 9 - Itching Comments: Itchy watery eyes, sneezing IMITREX (SUMATRIPTAN) 04/07/2023 14 - Other: See Comments NARCOTICS (OPIOIDS - MORPHINE LOYD*02/08/2025 14 - Other: See Comments Comments: Most narcotics keep her awake for 3 days per pt, does well with tylenol with codeine per pt OZEMPIC (SEMAGLUTIDE) 06/07/2024 5 - Intolerance Comments: Constipation PROPOXYPHENE 02/23/2024 14 - Other: See Comments STEROIDS (BETAMETHASONE DIPROPION*01/31/2008 STEROIDS (CORTICOSTEROIDS (GLUCOC*10/24/2024 14 - Other: See Comments Comments: blindness Date Reviewed: 02/21/2025 Reviewed by: Kathy Friedman LPN - Fully Assessed Reason for Visit: Post Op [174] Cmt: S/P WLE arm mass Primary Visit Diagnosis:Left arm pain [M79.602] Other Visit Diagnosis:Hemangioma of skin [D18.01] Order(s):MRI LOWER ARM WO/W IVCON LEFT [[id number]] Order #: [id number] FUTURE iv contrast (will be provided with radiology test)MRI lower arm LT Inject, intravenously, once for 1 dose. No IV access, insert saline lock prior to the beginning of sedation, infusion, injection of imaging exam. Discontinue saline lock post exam. If Pt. has a central line or IVAD, may access for administration according to line specific nursing protocol. Once exam is complete flush line and de-access according to line specific nursing protocol in the MR contrast administration guidelines link.Disp: 1 eachRfl: 0 Prescriptions as of 02/22/2025 - iv contrast (will be provided with radiology test) MRI lower arm LT Inject, intravenously, once for 1 dose. No IV access, insert saline lock prior to the beginning of sedation, infusion, injection of imaging exam. Discontinue saline lock post exam. If Pt. has a central line or IVAD, may access for administration according to line specific nursing protocol. Once exam is complete flush line and de-access according to line specific nursing protocol in the MR contrast administration guidelines link. - ipratropium bromide (ATROVENT) 42 mcg (0.06 %) nasal spray - ibuprofen (MOTRIN) 800 mg tablet - Benzonatate 200 mg capsule - metroNIDAZOLE 0.75 % cream APPLY TO FACE EVERY MORNING AND EVERY EVENING - ezetimibe (ZETIA) 10 mg tablet Take 1 tablet by mouth once daily. - carvedilol (COREG) 3.125 mg tablet TAKE 1 TABLET BY MOUTH TWIC (more content not included)... Normal [facility] CNOVon 02-18-2025 CN Office Visit (WSTR ) KENNY VALADEZ ([id number]) 1955 F Date Time Provider Department 02/18/25 1:00 PM JOSE LUIS JUNG [facility] During your visit today, we recorded the following information about you: Temperature Pulse Respiration Blood pressure 99.1 degrees 97/minute 18/minute 114/74 Weight 83 kg Jose Luis Jung APRN.MANAGER NEWS 02/18/2025 2:17 PM Signed [facility] Subjective Kennycaroline Valadez is a 69 year old female. Patient presents with: Cough: Sinus congestion and drainage x2 days Patient came in with complaints of 2 days worth of sinus congestion drainage sore throat and cough. Patient says usually drains down into her chest and causes bronchitis. Patient denies any significant lung history. Patient says she does have some shortness of breath. Patient says she usually has shortness of breath due to extensive cardiac history. The history is provided by the patient. No language and literature division chair was used. Cough Associated symptoms include sore throat. Review of Systems HENT: Positive for congestion, sinus pain and sore throat. Respiratory: Positive for cough. Objective BP 114/74 Pulse 97 Temp 37.3 ?C (99.1 ?F) Resp 18 Wt 83 kg (182 lb 15.7 oz) SpO2 96% BMI 29.53 kg/m? Physical Exam Constitutional: Appearance: Normal appearance. HENT: Right Ear: Tympanic membrane, ear canal and external ear normal. Left Ear: Tympanic membrane, ear canal and external ear normal. Nose: Nose normal. Mouth/Throat: Mouth: Mucous membranes are moist. Pharynx: Posterior oropharyngeal erythema present. Eyes: Pupils: Pupils are equal, round, and reactive to light. Cardiovascular: Rate and Rhythm: Normal rate and regular rhythm. Heart sounds: Normal heart sounds. Pulmonary: Effort: Pulmonary effort is normal. Breath sounds: Normal breath sounds. Neurological: Mental Status: She is alert. PAST MEDICAL HISTORY Diagnosis Date Arthritis Asthma CERVICAL DISC DISPLACMNT 02/03/2008 Chronic systolic heart failure (HCC) Coronary artery disease Degenerative disc disease Delayed emergence from anesthesia Diabetes mellitus type 2, controlled (HCC) Herniated disc HLD (hyperlipidemia) HTN (hypertension) Ischemic cardiomyopathy Migraines BELA (obstructive sleep apnea) Pericardial effusion (HCC) 04/13/2023 Thyroid nodule Unspecified essential hypertension Essential hypertension PAST SURGICAL HISTORY Procedure Laterality Date ADENOIDECTOMY PRIMARY Adenoidectomy APPENDECTOMY W/ exploratory lap BACK SURGERY HX CHOLECYSTECTOMY REMV CATARACT EXTRACAP,INSERT LENS Bilateral 09/2023 SKIN BX, 1 LESION 01/19/2025 Left Forearm TONSILLECTOMY PRIMARY/SECONDARY Tonsillectomy VAGINAL HYSTERECTOMY UTERUS 250 GM/< Hysterectomy, vaginal ALLERGIES Animal Dander, Imitrex [Sumatriptan], Narcotics [Opioids - Morphine Analogues], Ozempic [Semaglutide], Propoxyphene, Steroids [Betamethasone Dipropionate], and Steroids [Corticosteroids (Glucocorticoids)] MEDICATIONS ipratropium bromide (ATROVENT) 42 mcg (0.06 %) nasal spray ibuprofen (MOTRIN) 800 mg tablet Benzonatate 200 mg capsule metroNIDAZOLE 0.75 % cream APPLY TO FACE EVERY MORNING AND EVERY EVENING ezetimibe (ZETIA) 10 mg tablet Take 1 tablet by mouth once daily. carvedilol (COREG) 3.125 mg tablet TAKE 1 TABLET BY MOUTH TWICE A DAY WITH FOOD ENTRESTO 24-26 mg tablet TAKE 1 TABLET BY MOUTH TWICE A DAY blood sugar diagnostic (ONETOUCH ULTRA TEST) test strip Use as instructed to test blood sugar 5 times daily. DX: E11.42, insulin dependent. NOVOLOG FLEXPEN U-100 INSULIN 100 unit/mL (3 mL) INJECT SUBCUTANEOUSLY BREAKFAST 20 UNITS, LUNCH 20 UNITS , DINNER 20 UNITS PLUS SCALE UP TO 70 UNITS DAILY Diclofenac Sodium 3 % gel Apply 0.5 g to affected area two times a day. cycloSPORINE (RESTASIS) 0.05 % ophthalmic emulsion Use 1 Drop in both eyes two times a day. spironolactone (ALDACTONE) 25 mg tablet Take 0.5 tablets by mouth three times a week. nitroglycerin sublingual (NITROQUICK) 0.4 mg SL tablet Dissolve 1 tablet under the tongue every 5 minutes as needed for chest pain. TRESIBA FLEXTOUCH U-200 200 unit/mL (3 mL) injection Inject subcutaneously 70 units daily dapagliflozin propanediol (FARXIGA) 10 mg tablet Take 1 tablet by mouth daily with breakfast. clopidogrel (PLAVIX) 75 mg tablet Take 1 tablet by mouth once daily. diphenhydrAMINE (BENADRYL ALLERGY) 12.5 mg/5 mL liquid Take 12.5 mg by mouth at bedtime as needed. insulin needles, DISPOSABLE, (BD INSULIN PEN NEEDLE UF) 31 gauge x 5/16 Use 4 pen needles daily Multivitamin capsule Take 1 capsule by mouth once daily. aspirin, enteric coated (ASPIRIN, ENTERIC COATED) 81 mg EC tablet Take 1 tablet by mouth once daily. FAMILY HISTORY Problem Relation Age of Onset Heart Mother Allergies Mother Arthritis Mother Asthma Mother Genitourina (more content not included)... Normal [facility] COVID-19 MOLECULAR (POC)on 0 02-18-[address] [facility] SARS-CoV-2 (COVID-19) RNA ALYX+probe Ql (Unsp spec) Negative Negative [facility] Comment on above: Location:[address], [place], [place], [id number] [place] [address] INFLUENZA A&B MOLECULAR (POC )on 02-18-2025 Flu A (POCT) Negative Negative [facility] Flu B (POCT) Negative Negative [facility] Procedural Control Valid [facility] Location:[facility], [address] [place] [address], [place], [place], [id number] [place] [address] POINT OF CARE [facility] STREP A MOLECULAR (POC)on Procedural Control Valid [facility] Strep A (POCT) Negative Negative [facility] CNOVon 02-15-2025 CNOV Office Visit (AGCARDPOB) RORYKENNY ([id number]) 1955 F Date Time Provider Department 02/15/25 1:40 PM YARED DODD AGCARDPOB During your visit today, we recorded the following information about you: Pulse Respiration Blood pressure Weight 76/minute 18/minute 118/72 84.4 kg Height 1.676 m Kike Tiwari MA 02/15/2025 2:15 PM Signed Patient complains of (L) arm pain that travels down her arm to her hand. Yared Dodd MD 02/15/2025 2:15 PM Signed [facility] SE[facility] C[facility] Cardiology Christine ([facility])) [address] [id number] OUTPATIENT VISIT DATE 02/15/2025 PRIMARY CARE PHYSICIAN: David Wynn [address] [place] [address] HISTORY OF PRESENT ILLNESS: Ms. Valadez is a 69 year old woman has a history of coronary artery disease and anterior wall myocardial infarction in March 2023 when she presented to hospital with atypical back pain and was found to have evidence of ST elevation underwent emergent cardiac catheterization. She has a resulting ischemic cardiomyopathy ejection fraction of 30%, chronic systolic congestive heart failure, and dyslipidemia. She has a history of diabetes which is insulin requiring. She presents to the office for routine follow-up. Patient is complaining of severe left shoulder and arm pain. Her symptoms are worsened by even minimal activity such as typing or moving her arm. There seems to be no exacerbating relieving factors. She had called the office with complaints and we had scheduled her for a stress test. However, her symptoms are noncardiac in nature. They are not relieved with rest and do not worsen with activity such as walking. She has not had symptoms concerning for congestive heart failure including PND, orthopnea, or lower extremity edema. She denies palpitations, lightheadedness, dizziness, or syncope. PAST MEDICAL HISTORY Diagnosis Date Arthritis Asthma CERVICAL DISC DISPLACMNT 02/03/2008 Chronic systolic heart failure (HCC) Coronary artery disease Degenerative disc disease Delayed emergence from anesthesia Diabetes mellitus type 2, controlled (HCC) Herniated disc HLD (hyperlipidemia) HTN (hypertension) Ischemic cardiomyopathy Migraines BELA (obstructive sleep apnea) Pericardial effusion (HCC) 04/13/2023 Thyroid nodule Unspecified essential hypertension Essential hypertension PAST SURGICAL HISTORY Procedure Laterality Date ADENOIDECTOMY PRIMARY Adenoidectomy APPENDECTOMY W/ exploratory lap BACK SURGERY HX CHOLECYSTECTOMY REMV CATARACT EXTRACAP,INSERT LENS Bilateral 09/2023 SKIN BX, 1 LESION 01/19/2025 Left Forearm TONSILLECTOMY PRIMARY/SECONDARY Tonsillectomy VAGINAL HYSTERECTOMY UTERUS 250 GM/< Hysterectomy, vaginal SOCIAL HISTORY Social History Tobacco Use Smoking status: Never Smokeless tobacco: Never Tobacco comments: Secondhand smoke exposure x 30 years (Father and 1st ) Substance Use Topics Alcohol use: Not Currently Drug use: No FAMILY HISTORY Problem Relation Age of Onset Heart Mother Allergies Mother Arthritis Mother Asthma Mother Genitourinary () Mother bladder suspension in her 50's Hearing Loss Mother Hypertension Mother Lipids Mother Osteoporosis Mother Heart Father Cancer Father sarcoma Diabetes Father Hearing Loss Father Hypertension Father Lipids Father Stroke Father TIA'S Heart Maternal Grandmother Heart Maternal Grandfather Heart Paternal Grandmother Diabetes Paternal Grandmother other (Goiter) Paternal Grandmother Heart Paternal Grandfather Cancer Paternal Aunt I lost 11 aunts and uncles Cancer Paternal Uncle I lost 11 aunts and uncles Diabetes Paternal Aunt Diabetes Maternal Uncle Headache Daughter migraines ALLERGIES: ALLERGIES Allergen Reactions Animal Dander Itching Itchy watery eyes, sneezing Imitrex [Sumatripta* Other: See Comments Narcotics [Opioids * Other: See Comments Most narcotics keep her awake for 3 days per pt, does well with tylenol with codeine per pt Ozempic [Semaglutid* Intolerance Constipation Propoxyphene Other: See Comments Steroids [Betametha* Steroids [Corticost* Other: See Comments blindness MEDICATIONS: carvedilol (COREG) 3.125 mg tablet TAKE 1 TABLET BY MOUTH TWICE A DAY WITH FOOD ENTRESTO 24-26 mg tablet TAKE 1 TABLET BY MOUTH TWICE A DAY blood sugar diagnostic (The Green Life GuidesTOUCH ULTRA TEST) test strip Use as instructed to test blood sugar 5 times daily. DX: E11.42, insulin dependent. NOVOLOG FLEXPEN U-100 INSULIN 100 unit/mL (3 mL) INJECT SUBCUTANEOUSLY BREAKFAST 20 UNITS, LUNCH 20 UNITS , DINNER 20 UNITS PLUS SCALE UP TO 70 UNITS DAILY cycloSPORINE (RESTASIS) 0.05 % ophthalmic emulsion Use 1 Drop in (more content not included)... [facility] ALLIED HEALTHon 02-09-2025 ALLIED HEALTH HNO ID: [id number] Author: STEVIE ARTEAGA Chaplain Service: ? Author Type: Writing Tutor Type: Allied Health Filed: 02/09/2025 10:45 Note Text: SPIRITUAL CARE PROGRESS NOTE SERVICE DATE: 02/09/2025 SERVICE TIME: 9:15 Pre Surgery Writing Tutor provided support, presence and pray. To contact the Spiritual Care Department: Please call [phone]. SIGNATURE: Chaplain Sarah PATIENT NAME: Kenny Valadez DATE: February 09, 2025 TIME: 10:44 AM PAGER/CONTACT #: [phone] [facility] ANES POSTPROC EVALon 025 ANES POSTPROC EVAL HNO ID: [id number] Author: JODY TALAVERA MD Service: Anesthesiology Author Type: Anesthesiologist Type: Anesthesia Postprocedure Evaluation Filed: 02/12/2025 08:26 Note Text: POST ANESTHESIA EVALUATION NOTE : 1955 Procedure Summary Date: 02/09/25 Room / Location: [place] OR 14 / [place] OR Anesthesia Start: 1148 Anesthesia Stop: 1228 Procedure: WIDE LOCAL EXCISION OF L ARM MASS 5 CM (Left: Arm) Diagnosis: Arm mass, left (Arm mass, left [R22.32]) Surgeons: Phil Lawton MD Responsible Provider: Jody Talavera MD Anesthesia Type: general ASA Status: 4 Anesthesia Type: general Airway Type: LMA Last Vitals Vitals Value Taken Time BP 101/64 02/09/25 1315 Temp 36 ?C (96.8 ?F) 02/09/25 1330 HR SpO2 63 02/09/25 1330 Resp 13 02/09/25 1330 SpO2 96 % 02/09/25 1330 Post Anesthesia Patient Status Patient Evaluation: PACU. PACU/ICU Patient Condition: stable. Neurological Status: aware and responsive. Pulmonary Status: breathing comfortably on supplemental oxygen Airway Control: returned to baseline unsupported. Cardiovascular Status: stable. Pain Management: clinically adequate Postoperative Hydration: acceptable. Intraoperative Events: no significant anesthesia events Post Operative Nausea/Vomiting Status: no significant post operative nausea or vomiting Recommendation: continue current plan of care. Anesthesia Observations No Documentation SIGNATURE: Jody Talavera MD PATIENT NAME: Kenny Valadez DATE: February 12, 2025 TIME: 8:25 AM CSN: [id number] [facility] ANES PRE-OPon 02-09-2025 ANES PRE-OP HNO ID: [id number] Author: JODY TALAVERA MD Service: Anesthesiology Author Type: Anesthesiologist Type: Anesthesia Preprocedure Evaluation Filed: 02/09/2025 10:34 Note Text: ANESTHESIOLOGY DAY OF SURGERY NOTE Left arm mass CHF - entresto, carvedilol, spironolactone DM - insulin, dapagliflozin CAD - nitroglycerin, plavix Echo 2023 EF = 33% Neg stress 2024 : 1955 Procedure Information Date/Time: 02/09/25 1115 Procedure: WIDE LOCAL EXCISION OF L ARM MASS 5 CM (Left: Arm) Location: [place] OR / [place] Surgeons: Phil Lawton MD Estimated body mass index is 31.63 kg/m? as calculated from the following: Height as of 01/15/25: 167.6 cm (5' 6). Weight as of 01/15/25: 88.9 kg (195 lb 15.8 oz). 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 Tracheostomy tube not present Mallampati: II. TM distance: >3 FB. Neck ROM: limited flexion and extension. Mouth opening: adequate. Short neck: no. Thick neck: no II - ANESTHESIA PLAN ASA Score: 4 Anesthetic Plan: general Airway type: LMA NPO Status: adequate Beta Estefania Monitoring Plan Monitoring plan: standard ASA. Post Procedure Analgesic Plan Postoperative analgesic plan: multimodal analgesia. Informed Consent Anesthetic risks, benefits, alternatives, personnel and consent discussed: yes. Patient / Responsible Republican agrees to proceed: yes Patient / Surrogate agrees to blood products: Yes Potential Anesthesia issues that may suggest increased risk of complications or contraindication to planned procedure: none. No vitals data found for the desired time range. Facility-Administered Medications as of 02/09/2025 Medication Dose Route Frequency lidocaine (PF) 10 mg/mL (1 %) 1-2 mg injection (XYLOCAINE) 0.1-0.2 mL INTRADERMAL PRN NaCl 0.9% iv flush bag 20 mL INTRAVENOUS PRN acetaminophen 975 mg tab(s) (TYLENOL) 975 mg ORAL Pre-Op Once gabapentin 300 mg cap(s) (NEURONTIN) 300 mg ORAL Pre-Op Once Outpatient Medications as of 02/09/2025 Medication Sig carvedilol (COREG) 3.125 mg tablet TAKE 1 TABLET BY MOUTH TWICE A DAY WITH FOOD ENTRESTO 24-26 mg tablet TAKE 1 TABLET BY MOUTH TWICE A DAY NOVOLOG FLEXPEN U-100 INSULIN 100 unit/mL (3 mL) INJECT SUBCUTANEOUSLY BREAKFAST 20 UNITS, LUNCH 20 UNITS , DINNER 20 UNITS PLUS SCALE UP TO 70 UNITS DAILY cycloSPORINE (RESTASIS) 0.05 % ophthalmic emulsion Use 1 Drop in both eyes two times a day. spironolactone (ALDACTONE) 25 mg tablet Take 0.5 tablets by mouth three times a week. nitroglycerin sublingual (NITROQUICK) 0.4 mg SL tablet Dissolve 1 tablet under the tongue every 5 minutes as needed for chest pain. TRESIBA FLEXTOUCH U-200 200 unit/mL (3 mL) injection Inject subcutaneously 70 units daily (Patient taking differently: Inject subcutaneously 80 units daily in am) dapagliflozin propanediol (FARXIGA) 10 mg tablet Take 1 tablet by mouth daily with breakfast. clopidogrel (PLAVIX) 75 mg tablet Take 1 tablet by mouth once daily. diphenhydrAMINE (BENADRYL ALLERGY) 12.5 mg/5 mL liquid Take 12.5 mg by mouth at bedtime as needed. Multivitamin capsule Take 1 capsule by mouth once daily. blood sugar diagnostic (The Green Life GuidesTOUCH ULTRA TEST) test strip Use as instructed to test blood sugar 5 times daily. DX: E11.42, insulin dependent. Diclofenac Sodium 3 % gel Apply 0.5 g to affected area two times a day. insulin needles, DISPOSABLE, (BD INSULIN PEN NEEDLE UF) 31 gauge x 5/16 Use 4 pen needles daily aspirin, enteric coated (ASPIRIN, ENTERIC COATED) 81 mg EC tablet Take 1 tablet by mouth once daily. I have interviewed and examined the patient. I have reviewed the medical record and/or the pre-anesthesia evaluation, pertinent labs, and test results. This contains updated information obtained within 48 hours of Surgery/Procedure. SIGNATURE: Jody Talavera MD PATIENT NAME: Kenny Valadez DATE: February 09, 2025 TIME: 9:03 AM CSN: [id number] [facility] BRIEF OP NOTon 02-09-2025 BRIEF OP NOT HNO ID: [id number] Author: OMAR ZABALA DO Service: General Surgery Author Type: Resident Type: Brief Op Note Filed: 02/09/2025 12:32 Note Text: BRIEF OPERATIVE / PROCEDURE NOTE LOG ID: [id number] SURGERY/PROCEDURE DATE: 02/09/2025 INCISION/PROCEDURE START TIME: 12:02 PM INCISION CLOSE/PROCEDURE END TIME: 12:16 PM SURGEON(S)/PROCEDURALI ST(S) AND ALARM MECHANIC(S): Surgeons and Role: * Phil Lawton MD - Primary * Omar Zabala DO - Resident - Assisting No Additional Staff SURGERY/PROCEDURE(S): excision of L forearm soft tissue mass ANESTHESIA: General FINDINGS: ~ 5 cm soft tissue mass ESTIMATED BLOOD LOSS: 1 mls SPECIMENS: see above COMPLICATIONS: None CLOSURE TECHNIQUE: Primary PRE-OP/PRE-PROCEDURE DIAGNOSIS: L forearm soft tissue mass POST-OP/POST-PROCEDURE DIAGNOSIS: Same as Preop SIGNATURE: Omar Zabala DO PATIENT NAME: Kenny Valadez DATE: February 09, 2025 TIME: 12:[address] [facility] OPERATIVE NOon 02-09-2025 OPERATIVE NO HNO ID: [id number] Author: PHIL LAWTON MD Service: General Surgery Author Type: Resident Type: Operative Report Filed: 02/12/2025 09:29 Note Text: Attestation signed by Phil Lawton MD at 02/12/2025 9:29 AM I was present for the critical and gonzalez portions of the surgery and I was immediately available to provide assistance. OPERATIVE/PROCEDURE REPORT LOG ID: [id number] SURGERY/PROCEDURE DATE: 02/09/2025 INCISION/PROCEDURE START TIME: 12:02 PM INCISION CLOSE/PROCEDURE END TIME: 12:16 PM SURGEON(S)/PROCEDURALI ST(S) AND ALARM MECHANIC(S): Surgeons and Role: * Phil Lawton MD - Primary * Omar Zabala DO - Resident - Assisting No Additional Staff SURGERY/PROCEDURE(S): excision of L forearm mass INDICATIONS: 69 yo female originally presented to clinic with a slowly growing L forearm mass. Biopsy revealed benign vascular lesion vs lymphangioma. Given these findings, the decision was made to proceed to the OR for excision of the L forearm lesion. ANESTHESIA: General SURGERY/PROCEDURE DETAILS: Patient was brought into the operating room where a huddle, time-out, preoperative antibiotics, and proper positioning were all performed. The necessary medical equipment and staff were all present in the room. L forearm was then sterilely prepped and draped in the usual fashion. We began by making an elliptical incision overlying the L forearm mass. A 15 blade was then used to free the mass of the surrounding soft tissue attachments. The mass was then able to be easily eviscerated. The vascular stalk was then divided using a scalpel. In its entirety, the mass measured approximately 5 x 2.5 x 2.0 cm. It was then removed from the field and sent to pathology for permanent sectioning. The wound was then copiously irrigated. The deeper tissues were then reapproximated using interrupted deep dermal 3-0 vicryl sutures. The skin was then closed using a running 4-0 monocryl and skin glue. The patient tolerated the procedure well without any complications. Post operatively, she was then taken to PACU in good condition. COUNTS: All instrument and sponge counts were correct and accounted for at the conclusion of the case. PRE-OP/PRE-PROCEDURE DIAGNOSIS: L forearm mass POST-OP/POST-PROCEDURE DIAGNOSIS: Same as Preop ESTIMATED BLOOD LOSS: 2 mls SPECIMENS: L forearm mass IMPLANTABLE DEVICES: NONE DRAINS: None COMPLICATIONS: None CLOSURE TECHNIQUE: Primary SIGNATURE: Omar Zabala DO PATIENT NAME: Kenny Valadez DATE: February 09, 2025 TIME: 12:[address] [facility] Pathology biopsy report Edgardo (Tiss)on 02-09-2025 AP DISCLAIMER Normal [facility] Comment on above: Order Comment: Speci men Type: TISSUE SPECIMENOrdering Facility: [facility] Address: [address] [place] [address] Result Comment: Alma Mejía Test (LDT) Disclaimer: Performance characteristics of immunohistochemical, immunofluorescent, and chromogenic in-situ hybridization tests have been determined by the performing laboratory within [facility]'s David Christy Pathology and Laboratory Medicine Department ([facility], [facility], [facility], [facility], [facility], or [facility]) in a manner consistent with CLIA requirements. One or more of these tests may not have been cleared or approved by the FDA. [facility] is regulated under CLIA as qualified to perform high-complexity testing. These tests are used for clinical purposes. These should not be regarded as investigational or for research. Positive and negative controls stain appropriately. Performed By: #### 6 6121-5 ####[facility] [id number] [address] CASE REPORT [facility] Comment on above: Order Comment: Speci men Type: TISSUE SPECIMENOrdering Facility: [facility] Address: [address] [place] [address] Result Comment: [facility] Pathology Report Case: [id number] Authorizing Provider: Phil Lawton MD Collected: 02/09/2025 12:04 PM Ordering Location: [place] [facility] [place] Received: 02/09/2025 01:58 PM Pathologist: Elie Hernandez MD Specimen: Soft Tissue, Mass, Resection, left forearm mass Performed By: #### 6 6121-5 ####[facility] [id number] [address] CLINICAL HISTORY Normal [facility] Comment on above: Order Comment: Speci men Type: TISSUE SPECIMENOrdering Facility: [facility] Address: [address] [place] [address] Result Comment: Pre- op diagnosis: Arm mass, left [R22.32] Performed By: #### 6 6121-5 ####[facility] [id number] [address] FINAL DIAGNOSIS Normal [facility] Comment on above: Order Comment: Speci men Type: TISSUE SPECIMENOrdering Facility: [facility] Address: [address] [place] [address] Result Comment: A. S oft tissue, left forearm mass, resection: - Benign hemangioma. at 1348 EDT Performed By: #### 6 6121-5 ####[facility] [id number] [address] FINAL PERFORMING LAB Normal [facility] Comment on above: Order Comment: Speci men Type: TISSUE SPECIMENOrdering Facility: [facility] Address: [address] [place] [address] Result Comment: Diag nostic interpretation performed at: [facility], [address] [address] CLIA# [id number] [employer]: William Muro MD Performed By: #### 6 6121-5 ####[facility] [id number] [address] GROSS DESCRIPTION Normal [facility] Comment on above: Order Comment: Speci men Type: TISSUE SPECIMENOrdering Facility: [facility] Address: [address] [place] [address] Result Comment: A. S oft Tissue, Mass, Resection Received in formalin labeled left forearm mass is a 4.5 x 4.0 x 1.5 cm purple-red subcutaneous mass. One surface demonstrates an unremarkable shrestha-brown ellipse of skin measuring 4.2 x 2.0 x 0.3 cm. The lateral and deep aspects of the mass are inked. A portion of unremarkable soft tissue is adherent to the deep surface. Sectioning reveals dark red, multinodular, hemorrhagic cut surfaces by a shrestha fibrous septum. No other gross abnormalities are seen. A complete cross-section is submitted in formalin in cassettes A1-A2. Gross examination performed at [facility], [address] February 09, 2025 2:33 PM Performed By: #### 6 6121-5 ####[facility]IA [id number] [address] NM CARDIAC PERF STRESS/PHARM on 02-05-2025 NM CARDIAC PERF STRESS/PHARM * * *Final Report* * * DATE OF EXAM: Feb 05 2025 9:39AM N 0006 - NM CARDIAC PERF STRESS/PHARM / PROCEDURE REASON: Coronary artery disease of chitina artery of chitina heart with stable angina pect * * * * Physician Interpretation * * * * Stress Pneumatic System Conveyor Operator Report: [facility] Date of service: 02/05/2025 8:13:41 AM Supervising physician: Sanjana Sherwood MD PATIENT: Name: MS. KENNY VALADEZ Age: 69 years Gender: F The supervising physician was in the department and immediately available. * * * Final * * * ------ PATIENT: Name: MS. KENNY VALADEZ Age: 69 years Gender: F CONCLUSIONS: 1. SPECT Perfusion Study: Abnormal. 2. There is no scintigraphic evidence for inducible ischemia. 3. There is a large (>20%) fixed perfusion defect in the LAD territory. 4. Left ventricle is mildly dilated. The left ventricle systolic function is moderately decreased. 5. Right ventricle is normal in size. The right ventricle systolic function is normal. 6. This is a high risk scan due to calculated LVEF and area of scar/ischemia. Gated Stress FBP Gated Rest FBP LVEF % 41 40 Prior Study Comparison No prior nuclear cardiology exam available for comparison. Nuclear Med Report:1-Day Gated SPECT Myocardial Perfusion with Regadenoson Stress: Myocardial perfusion imaging was performed at rest 30 minutes following the IV injection of the radiotracer. The patient received 0.4 mg of regadenoson, via rapid IV push, immediately followed by radiotracer IV. Gated post stress tomographic imaging was performed 30 to 60 minutes later. See administered radiotracer and doses below. [facility] Date of service: 02/05/2025 8:13:41 AM Ordering Physician: YARED DODD. Requesting Physician: YARED DODD Indication: Chest pain/anginal equiv, high CAD risk, not treadmill candidate. Fellow: Cam Kebede Interpreting physician: Sanjana Sherwood MD Previous Cardiovascular Interventions: Diagnostic cath (04/08/2023) Height: 167.64 cm BSA: 2.03 m? Weight: 88.91 kg BMI: 31.6 kg/m? CT Dose-Length Product(DLP): 18.0 mGy * cm. CT Dose Reduction Employed: Yes. Exam Type: Rest Stress Radiopharm: Tc-99m Tetrofosmin Tc-99m Tetrofosmin Dosage(mCi): 11.9 32.7 Atten Correction: performed Stress Agent: Regadenoson 0.4mg Supply provided from [facility] Resting Blood Press: 120/82 mmHg Image Quality The overall study imaging quality was deemed to be fair. FINDINGS: Left Ventricle Wall Motion: Stress IR:3D - The apical anterior segment and apex are dyskinetic. The apical lateral segment, apical septal segment, and apical inferior segment are akinetic. The anterior wall, adam-lateral wall, anterior septum, inferior wall, posterior wall, mid inferoseptal segment, and basal inferoseptal segment are hypokinetic. Rest IR:3D:SC - Gated Stress FBP - Gated Rest FBP - Reversibility - Stress IR:3D Gated Stress FBP Gated Rest FBP LVEF: 41 % 40 % ED Volume: 152 ml 139 ml ES Volume: 89 ml 84 ml Perfusion Findings Stress IR:3D - Summed Score=25 There is a very severe perfusion defect in the apical septal segment, apical anterior segment, and apex. There is a severe perfusion defect in the mid anteroseptal segment, apical lateral segment, and mid inferoseptal segment. There is a moderate perfusion defect in the mid anterior segment and apical inferior segment. All remaining scored segments show normal perfusion. Rest IR:3D:SC - Summed Score=25 There is a very severe perfusion defect in the apical septal segment, apical anterior segment, and apex. There is a severe perfusion defect in the mid anteroseptal segment, apical lateral segment, and mid inferoseptal segment. There is a moderate perfusion defect in the mid anterior segment and apical inferior segment. All remaining scored segments show normal perfusion. Stress IR:3D Rest IR:3D:SC Summed Score=25 Summed Score=25 LEFT VENTRICLE The left ventricle is mildly dilated. Left ventricular systolic function is moderately decreased. Right Ventricle The right ventricle is normal in size. Right ventricle systolic function is normal. Stress Test Findings: There is no scintigraphic evidence for inducible ischemia. * * * Final * * * ------ PR CTAC Report: [facility] Date of service: 02/05/2025 8:13:41 AM CTAC interpreting physician: Sanjana Sherwood MD PATIENT: Name: MS. KENNY VALADEZ Age: 69 years Gender: F 1. Incidental Findings from limited non-diagnostic CTAC: - Coronary calcifications visual (more content not included)... Normal [facility] Heart Perfusion W stress and W radionuclide Silvia 02-05-2025 * * *Final Report* * * DATE OF EXAM: Feb 05 2025 9:39AM [facility] 0006 - PR CARDIAC PERF STRESS/PHARM / PROCEDURE REASON: Coronary artery disease of chitina artery of chitina heart with stable angina pect * * * * Physician Interpretation * * * * Stress Pneumatic System Conveyor Operator Report: [facility] Date of service: 02/05/2025 8:13:41 AM Supervising physician: Sanjana Sherwood MD PATIENT: Name: MS. KENNY VALADEZ Age: 69 years Gender: F The supervising physician was in the department and immediately available. * * * Final * * * ------ PATIENT: Name: MS. KENNY VALADEZ Age: 69 years Gender: F CONCLUSIONS: 1. SPECT Perfusion Study: Abnormal. 2. There is no scintigraphic evidence for inducible ischemia. 3. There is a large (>20%) fixed perfusion defect in the LAD territory. 4. Left ventricle is mildly dilated. The left ventricle systolic function is moderately decreased. 5. Right ventricle is normal in size. The right ventricle systolic function is normal. 6. This is a high risk scan due to calculated LVEF and area of scar/ischemia. Gated Stress FBP Gated Rest FBP LVEF % 41 40 Prior Study Comparison No prior nuclear cardiology exam available for comparison. Nuclear Med Report:1-Day Gated SPECT Myocardial Perfusion with Regadenoson Stress: Myocardial perfusion imaging was performed at rest 30 minutes following the IV injection of the radiotracer. The patient received 0.4 mg of regadenoson, via rapid IV push, immediately followed by radiotracer IV. Gated post stress tomographic imaging was performed 30 to 60 minutes later. See administered radiotracer and doses below. [facility] Date of service: 02/05/2025 8:13:41 AM Ordering Physician: YARED DODD. Requesting Physician: YARED DODD Indication: Chest pain/anginal equiv, high CAD risk, not treadmill candidate. Fellow: Cam Kebede Interpreting physician: Sanjana Sherwood MD Previous Cardiovascular Interventions: Diagnostic cath (04/08/2023) Height: 167.64 cm BSA: 2.03 m Weight: 88.91 kg BMI: 31.6 kg/m CT Dose-Length Product(DLP): 18.0 mGy * cm. CT Dose Reduction Employed: Yes. Exam Type: Rest Stress Radiopharm: Tc-99m Tetrofosmin Tc-99m Tetrofosmin Dosage(mCi): 11.9 32.7 Atten Correction: performed Stress Agent: Regadenoson 0.4mg Supply provided from [facility] Resting Blood Press: 120/82 mmHg Image Quality The overall study imaging quality was deemed to be fair. FINDINGS: Left Ventricle Wall Motion: Stress IR:3D - The apical anterior segment and apex are dyskinetic. The apical lateral segment, apical septal segment, and apical inferior segment are akinetic. The anterior wall, adam-lateral wall, anterior septum, inferior wall, posterior wall, mid inferoseptal segment, and basal inferoseptal segment are hypokinetic. Rest IR:3D:SC - Gated Stress FBP - Gated Rest FBP - Reversibility - Stress IR:3D Gated Stress FBP Gated Rest FBP LVEF: 41 % 40 % ED Volume: 152 ml 139 ml ES Volume: 89 ml 84 ml Perfusion Findings Stress IR:3D - Summed Score=25 There is a very severe perfusion defect in the apical septal segment, apical anterior segment, and apex. There is a severe perfusion defect in the mid anteroseptal segment, apical lateral segment, and mid inferoseptal segment. There is a moderate perfusion defect in the mid anterior segment and apical inferior segment. All remaining scored segments show normal perfusion. Rest IR:3D:SC - Summed Score=25 There is a very severe perfusion defect in the apical septal segment, apical anterior segment, and apex. There is a severe perfusion defect in the mid anteroseptal segment, apical lateral segment, and mid inferoseptal segment. There is a moderate perfusion defect in the mid anterior segment and apical inferior segment. All remaining scored segments show normal perfusion. Stress IR:3D Rest IR:3D:SC Summed Score=25 Summed Score=25 LEFT VENTRICLE The left ventricle is mildly dilated. Left ventricular systolic function is moderately decreased. Right Ventricle The right ventricle is normal in size. Right ventricle systolic function is normal. Stress Test Findings: There is no scintigraphic evidence for inducible ischemia. * (more content not included)... DIVISION OF RADIOLOGY Provider, [facility] - 02/05/2025 * * *Final Report* * * DATE OF EXAM: Feb 05 2025 9:39AM [facility] 0006 - NM CARDIAC PERF STRESS/PHARM / PROCEDURE REASON: Coronary artery disease of chitina artery of chitina heart with stable angina pect * * * * Physician Interpretation * * * * Stress Pneumatic System Conveyor Operator Report: [facility] SOLEDAD-2 Date of service: 02/05/2025 8:13:41 AM Supervising physician: Sanjana Sherwood MD PATIENT: Name: MS. KENNY VALADEZ Age: 69 years Gender: F The supervising physician was in the department and immediately available. * * * Final * * * ------ PATIENT: Name: MS. KENNY VALADEZ Age: 69 years Gender: F CONCLUSIONS: 1. SPECT Perfusion Study: Abnormal. 2. There is no scintigraphic evidence for inducible ischemia. 3. There is a large (>20%) fixed perfusion defect in the LAD territory. 4. Left ventricle is mildly dilated. The left ventricle systolic function is moderately decreased. 5. Right ventricle is normal in size. The right ventricle systolic function is normal. 6. This is a high risk scan due to calculated LVEF and area of scar/ischemia. Gated Stress FBP Gated Rest FBP LVEF % 41 40 Prior Study Comparison No prior nuclear cardiology exam available for comparison. Nuclear Med Report:1-Day Gated SPECT Myocardial Perfusion with Regadenoson Stress: Myocardial perfusion imaging was performed at rest 30 minutes following the IV injection of the radiotracer. The patient received 0.4 mg of regadenoson, via rapid IV push, immediately followed by radiotracer IV. Gated post stress tomographic imaging was performed 30 to 60 minutes later. See administered radiotracer and doses below. [facility] Date of service: 02/05/2025 8:13:41 AM Ordering Physician: YARED DODD. Requesting Physician: YARED DODD Indication: Chest pain/anginal equiv, high CAD risk, not treadmill candidate. Fellow: Cam Kebede Interpreting physician: Sanjana Sherwood MD Previous Cardiovascular Interventions: Diagnostic cath (04/08/2023) Height: 167.64 cm BSA: 2.03 m Weight: 88.91 kg BMI: 31.6 kg/m CT Dose-Length Product(DLP): 18.0 mGy * cm. CT Dose Reduction Employed: Yes. Exam Type: Rest Stress Radiopharm: Tc-99m Tetrofosmin Tc-99m Tetrofosmin Dosage(mCi): 11.9 32.7 Atten Correction: performed Stress Agent: Regadenoson 0.4mg Supply provided from [facility] Resting Blood Press: 120/82 mmHg Image Quality The overall study imaging quality was deemed to be fair. FINDINGS: Left Ventricle Wall Motion: Stress IR:3D - The apical anterior segment and apex are dyskinetic. The apical lateral segment, apical septal segment, and apical inferior segment are akinetic. The anterior wall, adam-lateral wall, anterior septum, inferior wall, posterior wall, mid inferoseptal segment, and basal inferoseptal segment are hypokinetic. Rest IR:3D:SC - Gated Stress FBP - Gated Rest FBP - Reversibility - Stress IR:3D Gated Stress FBP Gated Rest FBP LVEF: 41 % 40 % ED Volume: 152 ml 139 ml ES Volume: 89 ml 84 ml Perfusion Findings Stress IR:3D - Summed Score=25 There is a very severe perfusion defect in the apical septal segment, apical anterior segment, and apex. There is a severe perfusion defect in the mid anteroseptal segment, apical lateral segment, and mid inferoseptal segment. There is a moderate perfusion defect in the mid anterior segment and apical inferior segment. All remaining scored segments show normal perfusion. Rest IR:3D:SC - Summed Score=25 There is a very severe perfusion defect in the apical septal segment, apical anterior segment, and apex. There is a severe perfusion defect in the mid anteroseptal segment, apical lateral segment, and mid inferoseptal segment. There is a moderate perfusion defect in the mid anterior segment and apical inferior segment. All remaining scored segments show normal perfusion. Stress IR:3D Rest IR:3D:SC Summed Score=25 Summed Score=25 LEFT VENTRICLE The left ventricle is mildly dilated. Left ventricular systolic function is moderately decreased. Right Ventricle The right ventricle is normal in size. Right ventricle systolic function is normal. Stress Test Findings: There is no scintigraphic evidence for inducible ischemia. * * * Final * * * ------ [facility] Report: [facility] Date of service: 02/05/2025 8:13:41 AM [facility] interpreting physician: Sanjana Sherwood MD PATIENT: Name: (more content not included)... [facility] Radiology Study observation (narrative) [facility] NM Heart Perfusion W stress and W radionuclide IVOrdered By: Ccf Provider on 02-05-2025 [facility] CNOVon 01-29-2025 CNOV Office Visit (GEN[place]Emerson ) KENNY VALADEZ ([id number]) 1955 F Date Time Provider Department 01/29/25 2:45 PM PHIL LAWTON During your visit today, we recorded the following information about you: Pulse Blood pressure 80/minute 127/86 Phil Lawton MD 01/29/2025 3:08 PM Signed Phil Lawton M.D. Surgical Oncology [address] [facility], [address] [place] [address] Kenny is a 69-year-old female presenting to discuss biopsy results of a left forearm mass. Kenny initially presented to the surgical oncology clinic on January 15 with a left forearm mass. An image-guided biopsy was performed, revealing a benign vascular lesion versus a lymphangioma. She presents today to discuss these results and decide on the next steps in management. The ROS, medical, surgical, family, and social history were reviewed by Phil Lawton MD. BP 127/86 Pulse 80 SpO2 97% No weight on file for this encounter. Physical Exam Constitutional: General: She is not in acute distress. HENT: Head: Normocephalic and atraumatic. Eyes: Pupils: Pupils are equal, round, and reactive to light. Neck: Thyroid: No thyromegaly. Trachea: No tracheal deviation. Cardiovascular: Rate and Rhythm: Normal rate and regular rhythm. Heart sounds: Normal heart sounds. Pulmonary: Effort: Pulmonary effort is normal. No respiratory distress. Breath sounds: Normal breath sounds. No stridor. Abdominal: General: There is no distension. Palpations: Abdomen is soft. Tenderness: There is no abdominal tenderness. Musculoskeletal: General: No deformity. Normal range of motion. Skin: General: Skin is warm and dry. Findings: No erythema or rash. Neurological: Mental Status: She is alert and oriented to person, place, and time. Psychiatric: Mood and Affect: Affect normal. Judgment: Judgment normal. General: Well-appearing, no acute distress. MSK/Ext: Left forearm mass present. 1. Lymphangioma, any site (D18.1) - Image-guided biopsy of left forearm mass demonstrated a benign vascular lesion, possibly a lymphangioma. - Discussed biopsy results and management options. - Patient agrees with the plan to proceed with surgical excision of the mass. - Scheduled for surgical excision on 02/22/2023. The patient consented to the use of ambient [employer] software for draft documentation of the visit consistent with [facility]?s Notice of Privacy Practices. I spent a total of 20 minutes on the date of the service which included preparing to see the patient, completing clinical documentation, performing a medically appropriate examination, and counseling and educating the patient/family/caregiv er. Phil Lawton MD 01/29/2025 3:07 PM Allergies As of Date: 01/29/2025 Noted Allergy Reaction ANIMAL DANDER 04/08/2023 9 - Itching Comments: Itchy watery eyes, sneezing IMITREX (SUMATRIPTAN) 04/07/2023 14 - Other: See Comments OZEMPIC (SEMAGLUTIDE) 06/07/2024 5 - Intolerance Comments: Constipation PROPOXYPHENE 02/23/2024 14 - Other: See Comments STEROIDS (BETAMETHASONE DIPROPION*01/31/2008 STEROIDS (CORTICOSTEROIDS (GLUCOC*10/24/2024 14 - Other: See Comments Comments: blindness Date Reviewed: 01/29/2025 Reviewed by: Phil Lawton MD - Fully Assessed Reason for Visit: Follow Up [171] Cmt: Biopsy, left Arm Visit Diagnosis:Lymphangioma , any site [D18.1] Prescriptions as of 01/29/2025 - carvedilol (COREG) 3.125 mg tablet TAKE 1 TABLET BY MOUTH TWICE A DAY WITH FOOD - ENTRESTO 24-26 mg tablet TAKE 1 TABLET BY MOUTH TWICE A DAY - blood sugar diagnostic (The [employer] GuidesTOUCH ULTRA TEST) test strip Use as instructed to test blood sugar 5 times daily. DX: E11.42, insulin dependent. - NOVOLOG FLEXPEN U-100 INSULIN 100 unit/mL (3 mL) INJECT SUBCUTANEOUSLY BREAKFAST 20 UNITS, LUNCH 20 UNITS , DINNER 20 UNITS PLUS SCALE UP TO 70 UNITS DAILY - Diclofenac Sodium 3 % gel Apply 0.5 g to affected area two times a day. - cycloSPORINE (RESTASIS) 0.05 % ophthalmic emulsion Use 1 Drop in both eyes two times a day. - spironolactone (ALDACTONE) 25 mg tablet Take 0.5 tablets by mouth three times a week. - nitroglycerin sublingual (NITROQUICK) 0.4 mg SL tablet Dissolve 1 tablet under the tongue every 5 minutes as needed for chest pain. - TRESIBA FLEXTOUCH U-200 200 unit/mL (3 mL) injection Inject subcutaneously 70 units daily - dapagliflozin propanediol (FARXIGA) 10 mg tablet Take 1 tablet by mouth daily with breakfast. - clopidogrel (PLAVIX) 75 mg tablet Take 1 tablet by mouth once daily. - diphenhydrAMINE (BENADRYL ALLERGY) 12.5 mg/5 mL liquid - insulin needles, DISPOSABLE, (BD INSULIN PEN NEEDLE UF) 31 gauge x 5/16 Use 4 pen needles daily - Multivitamin capsule Take 1 capsule by mouth once daily. - aspirin, enteric coated (ASPIRIN, ENTERIC COATED) 81 mg EC tablet Take 1 t (more content not included)... [facility] KENNY VALADEZ ([id number]) 1955 F Date Time Provider Department 01/29/25 YARED DODD During your visit today, we recorded the following information about you: Keshia Pantoja LPN 01/29/2025 3:22 PM Signed Ms. Valadez is calling in stating she has been having pain in her left arm stating its intermittent with being an 8 or 9 out of 10 on verbal pain chart. Patient is being told she needs to try and have her stress test completed before the surgery on 02/09/2025 for a mass removal on her left forearm. Patient is currently scheduled for stress test on 02/12/2025. Patient states she is being told she needs prior authorization for stress test to be moved any sooner then 02/12/2025. Patient is asking if there is any way Dr. Dodd can help to get her stress test scheduled any sooner at this time. Keshia Pantoja LPN Allergies As of Date: 01/29/2025 Noted Allergy Reaction ANIMAL DANDER 04/08/2023 9 - Itching Comments: Itchy watery eyes, sneezing IMITREX (SUMATRIPTAN) 04/07/2023 14 - Other: See Comments OZEMPIC (SEMAGLUTIDE) 06/07/2024 5 - Intolerance Comments: Constipation PROPOXYPHENE 02/23/2024 14 - Other: See Comments STEROIDS (BETAMETHASONE DIPROPION*01/31/2008 STEROIDS (CORTICOSTEROIDS (GLUCOC*10/24/2024 14 - Other: See Comments Comments: blindness Date Reviewed: 01/29/2025 Reviewed by: Phil Lawton MD - Fully Assessed Reason for Visit: Patient Update [1234] Justowriter Operator - Other [3602] Prescriptions as of 05/08/2025 - insulin needles, DISPOSABLE, (BD INSULIN PEN NEEDLE UF) 31 gauge x /16 Use 4 pen needles daily. DX: E11.29 - clopidogrel (PLAVIX) 75 mg tablet TAKE 1 TABLET BY MOUTH EVERY DAY - gabapentin (NEURONTIN) 300 mg capsule Take 1 capsule by mouth daily at bedtime for 30 days. - TRESIBA FLEXTOUCH U-200 200 unit/mL (3 mL) injection Inject subcutaneously 70 units daily - dapagliflozin propanediol (FARXIGA) 10 mg tablet Take 1 tablet by mouth daily with breakfast. - albuterol HFA (PROVENTIL HFA, VENTOLIN HFA) 90 mcg/actuation inhaler Inhale 2 puffs as instructed every 4 hours as needed for wheezing/shortness of breath. - Promethazine-DM (PHENERGAN-DM) 6.25-15 mg/5 mL syrup Take 5 mL by mouth four times a day as needed. - albuterol HFA (PROVENTIL HFA, VENTOLIN HFA) 90 mcg/actuation inhaler Inhale 2 puffs as instructed every 6 hours as needed. - azithromycin (ZITHROMAX) 250 mg tablet Take 250 mg by mouth. - benzonatate (TESSALON PERLE) 100 mg capsule Take 1 capsule by mouth three times a day as needed. - Benzonatate 200 mg capsule - metroNIDAZOLE 0.75 % cream APPLY TO FACE EVERY MORNING AND EVERY EVENING - ezetimibe (ZETIA) 10 mg tablet Take 1 tablet by mouth once daily. - carvedilol (COREG) 3.125 mg tablet TAKE 1 TABLET BY MOUTH TWICE A DAY WITH FOOD - ENTRESTO 24-26 mg tablet TAKE 1 TABLET BY MOUTH TWICE A DAY - blood sugar diagnostic (INcubesUCH ULTRA TEST) test strip Use as instructed to test blood sugar 5 times daily. DX: E11.42, insulin dependent. - NOVOLOG FLEXPEN U-100 INSULIN 100 unit/mL (3 mL) INJECT SUBCUTANEOUSLY BREAKFAST 20 UNITS, LUNCH 20 UNITS , DINNER 20 UNITS PLUS SCALE UP TO 70 UNITS DAILY - Diclofenac Sodium 3 % gel Apply 0.5 g to affected area two times a day. - cycloSPORINE (RESTASIS) 0.05 % ophthalmic emulsion Use 1 Drop in both eyes two times a day. - spironolactone (ALDACTONE) 25 mg tablet Take 0.5 tablets by mouth three times a week. - nitroglycerin sublingual (NITROQUICK) 0.4 mg SL tablet Dissolve 1 tablet under the tongue every 5 minutes as needed for chest pain. - diphenhydrAMINE (BENADRYL ALLERGY) 12.5 mg/5 mL liquid Take 12.5 mg by mouth at bedtime as needed. - Multivitamin capsule Take 1 capsule by mouth once daily. - aspirin, enteric coated (ASPIRIN, ENTERIC COATED) 81 mg EC tablet Take 1 tablet by mouth once daily. Problem List As Of Date 01/29/2025 Noted Resolved CERVICAL DISC DISPLACMNT [M50.20] 02/03/2008 Chronic sinusitis [J32.9] 06/09/2012 Albuminuria [R80.9] 02/19/2021 Recurrent UTI [N39.0] 02/19/2021 Dysuria [R30.0] 02/19/2021 Essential hypertension [I10] 02/19/2021 Type 2 diabetes mellitus with diabetic polyneur*03/07/2021 Mixed hyperlipidemia [E78.2] 03/07/2021 Nontoxic single thyroid nodule [E04.1] 12/04/2022 NSTEMI (non-ST elevated myocardial infarction) *04/08/2023 04/13/2023 Primary hypertension [I10] 04/08/2023 Acute systolic CHF (congestive heart failure) (*04/13/2023 Dyslipidemia [E78.5] 04/13/2023 Pericardial effusion [I31.39] 04/13/2023 Coronary artery disease of chitina artery of jf*05/03/2023 Chronic systolic congestive heart failure (HCC)*05/03/2023 Cardiomyopathy, ischemic [I25.5] 05/03/2023 Hypoglycemia due to type 2 diabetes mellitus (H*08/10/2023 Statin intolerance [Z78.9] 10/18/2023 Type 2 diabetes mellitus wi (more content not included)... Normal [facility] BRIEF OP NOTon 01-19-2025 BRIEF OP NOT HNO ID: [id number] Author: SANDY BAEZ MD Service: Interventional Radiology Author Type: Physician Type: Brief Op Note Filed: 01/19/2025 13:35 Note Text: BRIEF OPERATIVE / PROCEDURE NOTE LOG ID: [id number] SURGERY/PROCEDURE DATE: 01/19/2025 INCISION/PROCEDURE START TIME: 1:20 PM INCISION CLOSE/PROCEDURE END TIME: 1:31 PM SURGEON(S)/PROCEDURALI ST(S) AND ALARM MECHANIC(S): Surgeons and Role: * Sandy Baez MD - Primary No Additional Staff SURGERY/PROCEDURE(S): Left forearm mass biopsy ANESTHESIA: Local FINDINGS: Ultrasound guidance utilized for left forearm mass biopsy. ESTIMATED BLOOD LOSS: 1 mL SPECIMENS: Three 18 gauge cores. COMPLICATIONS: None CLOSURE TECHNIQUE: Primary PRE-OP/PRE-PROCEDURE DIAGNOSIS: Enlarging left forearm mass. POST-OP/POST-PROCEDURE DIAGNOSIS: Same as Preop SIGNATURE: Sandy Baez MD PATIENT NAME: Kenny Valadez DATE: January 19, 2025 TIME: 1:[address] [facility] Guidance for biopsy of Soft tissueon 01-19-2025 IMPRESSION: Ultrasound-guided biopsy of left forearm mass. Pathology results are pending. Casting Machine Set Up Operator: PSCB Transcribe Date/Time: Jan 19 2025 1:45P Dictated by : SANDY BAEZ MD This examination was interpreted and the report reviewed and electronically signed by: SANDY BAEZ MD on Jan 19 2025 1:47PM EST [facility] * * *Final Report* * * DATE OF EXAM: Jan 19 2025 1:44PM [id number] - US BIOPSY SOFT TISS MASS/MUSCLE / PROCEDURE REASON: R22.32 * * * * Physician Interpretation * * * * Ultrasound-guided left forearm mass biopsy, 01/19/2025. Reason for procedure: Patient with an enlarging mass on the dorsal aspect of the left forearm COMPARISON: Ultrasound dated December 05, 2024 Informed consent was obtained from the patient. The patient was evaluated for the safety and appropriateness of conscious sedation and the Moderate Sedation Record was completed. The procedure was performed local anesthetic. Complications: None immediate. Procedure details and findings: The patient's previous studies were reviewed. After obtaining informed consent, the patient brought to the ultrasound procedure suite and positioned supine on the gurney. A timeout was performed to verify the patient's identity and the appropriateness of the procedure. Sonographic evaluation of the area of concern confirmed the presence of known lobular, hypoechoic solid mass. The left forearm was prepped and draped in usual sterile fashion. Following administration of local anesthetic, real-time ultrasound guidance was used, with image capture, to obtain 3 18-gauge core biopsy needle specimens from the lesion. Specimens were submitted to pathology in formalin. The procedure was terminated at this point. Hemostasis was achieved using manual compression at the puncture site. A sterile dressing was applied. The patient tolerated the procedure well. [facility] Provider, [facility] - 01/19/2025 * * *Final Report* * * DATE OF EXAM: Jan 19 2025 1:44PM [id number] - US BIOPSY SOFT TISS MASS/MUSCLE / PROCEDURE REASON: R22.32 * * * * Physician Interpretation * * * * Ultrasound-guided left forearm mass biopsy, 01/19/2025. Reason for procedure: Patient with an enlarging mass on the dorsal aspect of the left forearm COMPARISON: Ultrasound dated December 05, 2024 Informed consent was obtained from the patient. The patient was evaluated for the safety and appropriateness of conscious sedation and the Moderate Sedation Record was completed. The procedure was performed local anesthetic. Complications: None immediate. Procedure details and findings: The patient's previous studies were reviewed. After obtaining informed consent, the patient brought to the ultrasound procedure suite and positioned supine on the gurney. A timeout was performed to verify the patient's identity and the appropriateness of the procedure. Sonographic evaluation of the area of concern confirmed the presence of known lobular, hypoechoic solid mass. The left forearm was prepped and draped in usual sterile fashion. Following administration of local anesthetic, real-time ultrasound guidance was used, with image capture, to obtain 3 18-gauge core biopsy needle specimens from the lesion. Specimens were submitted to pathology in formalin. The procedure was terminated at this point. Hemostasis was achieved using manual compression at the puncture site. A sterile dressing was applied. The patient tolerated the procedure well. IMPRESSION IMPRESSION: Ultrasound-guided biopsy of left forearm mass. Pathology results are pending. Casting Machine Set Up Operator: PSCB Transcribe Date/Time: Jan 19 2025 1:45P Dictated by : SANDY BAEZ MD This examination was interpreted and the report reviewed and electronically signed by: SANDY BAEZ MD on Jan 19 2025 1:47PM EST [facility] Radiology Study observation (narrative) [facility] Guidance for biopsy of Soft tissueOrdered By: Ccf Provider on 01-19-2025 [facility] Pathology biopsy report Edgardo (Tiss)on 01-19-2025 AP DISCLAIMER Normal [facility] Comment on above: Order Comment: Speci men Type: TISSUE SPECIMENOrdering Facility: [facility] Address: [address] [place] [address] Result Comment: Alma sheppard Developed Test (LDT) Disclaimer: Performance characteristics of immunohistochemical, immunofluorescent, and chromogenic in-situ hybridization tests have been determined by the performing laboratory within [facility]'s [facility] Pathology and Laboratory Medicine Department ([facility], [facility], [facility], [facility], [facility], or [facility]) in a manner consistent with CLIA requirements. One or more of these tests may not have been cleared or approved by the FDA. [facility] is regulated under CLIA as qualified to perform high-complexity testing. These tests are used for clinical purposes. These should not be regarded as investigational or for research. Positive and negative controls stain appropriately. Performed By: #### 6 6121-5 ####[facility] LABORATORYCLIA [id number] [address] [place] CASE REPORT Normal [facility] Comment on above: Order Comment: Speci men Type: TISSUE SPECIMENOrdering Facility: [facility] Address: [address] [place] [id number] Result Comment: Surg ical Pathology Report Case: [id number] Authorizing Provider: Sandy Baez MD Collected: 01/19/2025 01:12 PM [facility]ing Location[facility] Received: 01/19/2025 01:41 PM INTERVENTIONAL RADIOLOGY Pathologist: Elie Hernandez MD Specimen: Soft Tissue, Mass, Biopsy Performed By: #### 6 6121-5 ####[facility]ORATORYCLIA [id number] [address] CLINICAL HISTORY Left arm soft tissue mass Normal [facility] Comment on above: Order Comment: Speci men Type: TISSUE SPECIMENOrdering Facility: [facility] Address: [address] [place] [address] Performed By: #### 6 6121-5 ####[facility] LABORATORYCLIA [id number] [address] DIAGNOSIS COMMENT Some vascular spaces contain proteinaceous material, which may favor lymphangioma. The case was reviewed by Dr. William Muro, who agrees with this assessment. Normal [facility] Comment on above: Order Comment: Speci men Type: TISSUE SPECIMENOrdering Facility: [facility] Address: [address] [place] [address] Performed By: #### 6 6121-5 ####[facility]ORATORYCLIA [id number] [address] FINAL DIAGNOSIS Normal [facility] Comment on above: Order Comment: Speci men Type: TISSUE SPECIMENOrdering Facility: [facility] Address: [address] [place] [address] Result Comment: A. S oft tissue, left arm mass, biopsy: - Benign vascular lesion, (see comment). at 1011 EDT Performed By: #### 6 6121-5 ####[facility] LABORATORYCLIA [id number] [address] FINAL PERFORMING LAB Normal [facility] Comment on above: Order Comment: Speci men Type: TISSUE SPECIMENOrdering Facility: [facility] Address: [address] [id number] Result Comment: Diag nostic interpretation performed at: [facility] [facility], [address] [place] [address] CLIA# [id number] [employer]: William Muro MD Performed By: #### 6 6121-5 ####[facility] LABORATORYCLIA [id number] [address] STATES OF [facility] GROSS DESCRIPTION Normal [facility] Comment on above: Order Comment: Speci men Type: TISSUE SPECIMENOrdering Facility: [facility] Address: [address] [place] [address] Result Comment: A. S oft Tissue, Mass, Biopsy Received in formalin and designated soft tissue mass biopsy are shrestha to shrestha-red needle cores ranging in size from 0.5 x 0.1 x 0.1 cm to 1.0 x 0.1 x 0.1 cm. The specimen is entirely submitted in cassette A1. KM January 19, 2025 2:31 PM Gross examination performed at [facility], [address] [place] [address] Performed By: #### 6 6121-5 ####[facility] LABORATORYCLIA [id number] [address] OF [facility] US BIOPSY SOFT TISS MASS/MUS Angelika 01-19-2025 US BIOPSY SOFT TISS MASS/MUSCLE * * *Final Report* * * DATE OF EXAM: Jan 19 2025 1:44PM [facility] 1068 - US BIOPSY SOFT TISS MASS/MUSCLE / PROCEDURE REASON: R22.32 * * * * Physician Interpretation * * * * Ultrasound-guided left forearm mass biopsy, 01/19/2025. Reason for procedure: Patient with an enlarging mass on the dorsal aspect of the left forearm COMPARISON: Ultrasound dated December 05, 2024 Informed consent was obtained from the patient. The patient was evaluated for the safety and appropriateness of conscious sedation and the Moderate Sedation Record was completed. The procedure was performed local anesthetic. Complications: None immediate. Procedure details and findings: The patient's previous studies were reviewed. After obtaining informed consent, the patient brought to the ultrasound procedure suite and positioned supine on the gurney. A timeout was performed to verify the patient's identity and the appropriateness of the procedure. Sonographic evaluation of the area of concern confirmed the presence of known lobular, hypoechoic solid mass. The left forearm was prepped and draped in usual sterile fashion. Following administration of local anesthetic, real-time ultrasound guidance was used, with image capture, to obtain 3 18-gauge core biopsy needle specimens from the lesion. Specimens were submitted to pathology in formalin. The procedure was terminated at this point. Hemostasis was achieved using manual compression at the puncture site. A sterile dressing was applied. The patient tolerated the procedure well. IMPRESSION: Ultrasound-guided biopsy of left forearm mass. Pathology results are pending. Casting Machine Set Up Operator: PSCB Transcribe Date/Time: Jan 19 2025 1:45P Dictated by : SANDY BAEZ MD This examination was interpreted and the report reviewed and electronically signed by: SANDY BAEZ MD on Jan 19 2025 1:47PM EST [id number] Normal [facility] CNCOon 01-17-20[address] [facility] CNOVon 01-15-2025 CNOV Office Visit (GENWAD ) KENNY VALADEZ ([id number]) 1955 F Date Time Provider Department 01/15/25 1:00 PM PHIL LAWTON During your visit today, we recorded the following information about you: Pulse Blood pressure Weight Height 82/minute 120/81 88.9 kg 1.676 m Phil Lawton MD 01/15/2025 1:54 PM Signed Phil Lawton M.D. Surgical Oncology [address] [facility], [place] [address] Plan SUBJECTIVE HPI Kenny Valadez is a 69 year old female presenting for evaluation of a left forearm mass. Patient reports that she has noted this mass since the . It started off relatively small. She reports that over the past several months it has grown substantially. Over the past 2 months she has appreciated a darkening of the skin overlying. She reports no other skin lesions or lymphadenopathy. She reports no other significant systemic symptoms. She was seen by general surgery and a ultrasound was ordered. This was performed on December 05, 2024 and demonstrated a roughly 4.5 cm heterogeneous mass. The ROS, medical, surgical, family, and social history were reviewed by Phil Lawton MD. OBJECTIVE There were no vitals taken for this visit. No weight on file for this encounter. Physical Exam Constitutional: General: She is not in acute distress. HENT: Head: Normocephalic and atraumatic. Eyes: Pupils: Pupils are equal, round, and reactive to light. Neck: Thyroid: No thyromegaly. Trachea: No tracheal deviation. Cardiovascular: Rate and Rhythm: Normal rate and regular rhythm. Heart sounds: Normal heart sounds. Pulmonary: Effort: Pulmonary effort is normal. No respiratory distress. Breath sounds: Normal breath sounds. No stridor. Abdominal: General: There is no distension. Palpations: Abdomen is soft. Tenderness: There is no abdominal tenderness. Musculoskeletal: General: No deformity. Normal range of motion. Lymphadenopathy: Upper Body: Right upper body: No supraclavicular or axillary adenopathy. Left upper body: No supraclavicular or axillary adenopathy. Skin: General: Skin is warm and dry. Findings: No erythema or rash. Comments: Roughly 5 cm x 3 cm mobile subcutaneous mass of the left forearm. There is pigmentation/vasculatu re over approximately 1 cm of skin. Neurological: Mental Status: She is alert and oriented to person, place, and time. Psychiatric: Mood and Affect: Affect normal. Judgment: Judgment normal. ASSESSMENT AND PLAN 69-year-old woman with a soft tissue mass of the left forearm. Advised patient that I am uncertain of the etiology of this mass. It does appear to be a relatively superficial mass but given the significant size of the mass in relation to her forearm I advised her that performing a biopsy would be most reasonable. This would allow us to more adequately plan resection and know whether or not we can preserve skin overlying the mass. Answered all the patient's questions. We will schedule her for a image guided biopsy. She will follow-up with me afterwards for the results. I spent a total of 45 minutes on the date of the service which included preparing to see the patient, completing clinical documentation, performing a medically appropriate examination, counseling and educating the patient/family/caregiv er, ordering medications, tests, or procedures, and independently interpreting results (not separately reported). Phil Lawton MD 01/15/2025 12:53 PM Referring Provider: SUSHIL HAWKINS [[id number]] Allergies As of Date: 01/15/2025 Noted Allergy Reaction ANIMAL DANDER 04/08/2023 9 - Itching Comments: Itchy watery eyes, sneezing IMITREX (SUMATRIPTAN) 04/07/2023 14 - Other: See Comments OZEMPIC (SEMAGLUTIDE) 06/07/2024 5 - Intolerance Comments: Constipation PROPOXYPHENE 02/23/2024 14 - Other: See Comments STEROIDS (BETAMETHASONE DIPROPION*01/31/2008 STEROIDS (CORTICOSTEROIDS (GLUCOC*10/24/2024 14 - Other: See Comments Comments: blindness Date Reviewed: 01/15/2025 Reviewed by: Destiny Sotelo LPN - Fully Assessed Reason for Visit: Consult [173] Cmt: Soft Tissue Mass, Left Arm Primary Visit Diagnosis:Arm mass, left [R22.32] Order(s):IMAGING GUIDED BIOPSY SOFT TISSUE MASS/MUSCLE [[id number]] Order #: [id number] Prescriptions as of 01/15/2025 - carvedilol (COREG) 3.125 mg tablet TAKE 1 TABLET BY MOUTH TWICE A DAY WITH FOOD - ENTRESTO 24-26 mg tablet TAKE 1 TABLET BY MOUTH TWICE A DAY - blood sugar diagnostic (ONETOUCH ULTRA TEST) test strip Use as instructed to test blood sugar 5 times daily. DX: E11.42, insulin dependent. - NOVOLOG FLEXPEN U-100 INSULIN 100 unit/mL (3 mL) INJECT SUBCUTANEOUSLY BREAKFAST 20 UNITS, LUNCH 20 UNITS , DINNER 20 UNITS PLUS SCALE UP TO 70 UNITS DAILY - Diclofenac Sodium 3 % gel Apply 0.5 g to affected area two times a day. - cycl (more content not included)... Normal [facility] Comprehensive metabolic 2000 panelon 01-04-2025 Albumin [Mass/Vol] 4.7 g/dL Normal 3.9-4.9 [facility] Comment on above: Order Comment: Speci men Type: BLOOD SPECIMENOrdering Facility: [facility] Address: [address] [place] [address] Performed By: #### 2 4323-8, 54977-8, 79880-6 ####[facility] LABCLIA [id number] [place] [address] [place] ALP [Catalytic activity/Vol] 73 U/L Normal 34-123 [facility] Comment on above: Order Comment: Speci men Type: BLOOD SPECIMENOrdering Facility: [facility] Address: [address] [place] [address] Performed By: #### 2 4323-8, 69383-8, 34256-6 ####[facility] LABCLIA [id number] [place] [address] [place] ALT [Catalytic activity/Vol] 12 U/L Normal 7-38 [facility] Comment on above: Order Comment: Speci men Type: BLOOD SPECIMENOrdering Facility: [facility] Address: [address] [place] [address] Performed By: #### 2 4323-8, 68826-6, 50040-3 ####[facility] LABIA [id number] [place] [address] [place] Anion gap [Moles/Vol] 17 mmol/L High 8-15 [facility] Comment on above: Order Comment: Speci men Type: BLOOD SPECIMENOrdering Facility: [facility] Address: [address] [place] [address] Performed By: #### 2 4323-8, 12091-4, 67677-9 ####[facility] LABCLIA [id number] [place] [address] [place] AST [Catalytic activity/Vol] 23 U/L Normal 13-35 [facility] Comment on above: Order Comment: Speci men Type: BLOOD SPECIMENOrdering Facility: [facility] Address: [address] [place] [address] Performed By: #### 2 4323-8, 81436-3, 09120-0 ####[facility] LABCLIA [id number] [place] [address] [place] Bilirubin [Mass/Vol] 0.6 mg/dL Normal 0.2-1.3 [facility] Comment on above: Order Comment: Speci men Type: BLOOD SPECIMENOrdering Facility: [facility] Address: [address] [place] [address] Performed By: #### 2 4323-8, 74236-8, 22309-2 ####[facility] LABCLIA [id number] [place] [address] [place] Calcium [Mass/Vol] 10.0 mg/dL Normal 8.5-10.2 [facility] Comment on above: Order Comment: Speci men Type: BLOOD SPECIMENOrdering Facility: [facility] Address: [address] [place] [address] Performed By: #### 2 4323-8, 50114-0, 62691-9 ####[facility] LABCLIA [id number] [place] [address] [place] Chloride [Moles/Vol] 104 mmol/L Normal 98-107 [facility] Comment on above: Order Comment: Speci men Type: BLOOD SPECIMENOrdering Facility: [facility] Address: [address] [place] [address] Performed By: #### 2 4323-8, 73584-8, 50746-5 ####[facility] LABCLIA [id number] [place] [address] [place] CO2 [Moles/Vol] 17 mmol/L Low 22-30 [facility] Comment on above: Order Comment: Speci men Type: BLOOD SPECIMENOrdering Facility: [facility] Address: [address] [place] [address] Performed By: #### 2 4323-8, 87321-4, 22947-2 ####[facility] LABIA [id number] [place] [address] [place] Creatinine [Mass/Vol] 0.80 mg/dL Normal 0.58-0.96 [facility] Comment on above: Order Comment: Hai das Type: BLOOD SPECIMENOrdering Facility: [facility] Address: [address] [place] [address] Performed By: #### 2 4323-8, 29177-3, 17975-6 ####[facility] LABIA [id number] [place] [address] [place] Creatinine and Glomerular filtration rate.predicted panel (S/P/Bld) 80 mL/min/1.73m??? Normal >=60 [facility] Comment on above: Order Comment: Hai das Type: BLOOD SPECIMENOrdering Facility: [facility] Address: [address] [place] [address] Result Comment: Carmen mated Glomerular Filtration Rate (eGFR) is calculated using the 2020 CKD-EPI creatinine equation. This equation utilizes serum creatinine, sex, and age as parameters. The creatinine assay has traceable calibration to isotope dilution-mass spectrometry. Refer to KDIGO guidelines for clinical interpretation. In patients with unstable renal function, e.g. those with acute kidney injury, the eGFR may not accurately reflect actual GFR. Performed By: #### 2 4323-8, 11359-9, 66001-6 ####[facility] LABIA [id number] [place] [id number] [place] Glucose [Mass/Vol] 69 mg/dL Low 74-99 [facility] Comment on above: Order Comment: Hai das Type: BLOOD SPECIMENOrdering Facility: [facility] Address: [address] [place] [address] Result Comment: The [place] Diabetes Association (ADA) provides guidance for cutoff values for fasting glucose and random glucose. The ADA defines fasting as no caloric intake for at least 8 hours. Fasting plasma glucose results between 100 to 125 mg/dL indicate increased risk for diabetes (prediabetes). Fasting plasma glucose results greater than or equal to 126 mg/dL meet the criteria for diagnosis of diabetes. In the absence of unequivocal hyperglycemia, results should be confirmed by repeat testing. In a patient with classic symptoms of hyperglycemia or hyperglycemic crisis, random plasma glucose results greater than or equal to 200 mg/dL meet the criteria for diagnosis of diabetes. Reference: Standards of Medical Care in Diabetes 2016, [place] Diabetes Association. Diabetes Care. 2016.39(Suppl 1). Performed By: #### 2 4323-8, 09143-0, 68907-0 ####[facility] LABCLIA [id number] [place] [address] [place] Potassium [Moles/Vol] 3.8 mmol/L Normal 3.7-5.1 [facility] Comment on above: Order Comment: Speci men Type: BLOOD SPECIMENOrdering Facility: [facility] Address: [address] [place] [address] Performed By: #### 2 4323-8, 04527-8, 68665-8 ####[facility] LABCLIA [id number] [place] [address] [place] Protein [Mass/Vol] 7.9 g/dL Normal 6.3-8.0 [facility] Comment on above: Order Comment: Speci men Type: BLOOD SPECIMENOrdering Facility: [facility] Address: [address] [place] [address] Performed By: #### 2 4323-8, 22741-5, 66546-3 ####[facility] LABCLIA [id number] [place] [address] [place] Sodium [Moles/Vol] 138 mmol/L Normal 136-144 [facility] Comment on above: Order Comment: Speci men Type: BLOOD SPECIMENOrdering Facility: [facility] Address: [address] [place] [address] Performed By: #### 2 4323-8, 62064-5, 77969-6 ####[facility] LABCLIA [id number] [place] [address] [place] Urea nitrogen [Mass/Vol] 14 mg/dL Normal 7-21 [facility] Comment on above: Order Comment: Speci men Type: BLOOD SPECIMENOrdering Facility: [facility] Address: [address] [place] [address] Performed By: #### 2 4323-8, 32325-8, 42389-6 ####[facility] LABCLIA [id number] [place] [address] [place] Lipid 1996 panelon 5 Cholesterol [Mass/Vol] 164 mg/dL Normal <200 [facility] Comment on above: Order Comment: Speci men Type: BLOOD SPECIMENOrdering Facility: [facility] Address: [address] [place] [address] Result Comment: <200 mg/dL, Desirable 200-239 mg/dL, Borderline high >239 mg/dL, High Performed By: #### 2 4323-8, 07051-4, 62530-9 ####[facility] LABCLIA [id number] [place] [address] [place] Cholesterol in HDL [Mass/Vol] 28 mg/dL Low >39 [facility] Comment on above: Order Comment: Speci men Type: BLOOD SPECIMENOrdering Facility: [facility] Address: [address] [place] [address] Result Comment: 40-5 9 mg/dL, Acceptable >59 mg/dL, High: Negative risk factor for coronary heart disease <40 mg/dL, Low: Positive risk factor for coronary heart disease Performed By: #### 2 4323-8, 60618-4, 41712-2 ####[facility] LABCLIA [id number] [place] [address] [place] Cholesterol in LDL [Mass/Vol] 107 mg/dL High <100 [facility] Comment on above: Order Comment: Speci men Type: BLOOD SPECIMENOrdering Facility: [facility] Address: [address] [place] [address] Result Comment: <100 mg/dL, Optimal 100-129 mg/dL, Near optimal/above optimal 130-159 mg/dL, Borderline high 160-189 mg/dL, High >189 mg/dL, Very high Secondary prevention optimal LDL Cholesterol levels are recommended to be < 70 mg/dL Performed By: #### 2 4323-8, 40121-8, 60722-8 ####[facility] LABCLIA [id number] [place] [address] [place] Cholesterol in LDL/Cholesterol in HDL [Mass ratio] 3.82 {ratio} High <2.54 [facility] Comment on above: Order Comment: Speci men Type: BLOOD SPECIMENOrdering Facility: [facility] Address: [address] [place] [address] Result Comment: Refe rence: 1. National Cholesterol Education Program ATP III Guideline At-A-Glance Quick Desk Reference: National Heart, Lung, and Blood Duncan. National Institutes of Health. 2001: NIH Publication No. 01-3305. 2. An International Atherosclerosis Society position paper: global recommendations for the management of dyslipidemia: executive summary, Atherosclerosis. 2014: 232(2):410-413. Performed By: #### 2 4323-8, 22151-6, 39469-7 ####[facility] LABCLIA [id number] [place] [address] [place] Cholesterol in VLDL [Mass/Vol] 29 mg/dL Normal <30 [facility] Comment on above: Order Comment: Speci men Type: BLOOD SPECIMENOrdering Facility: [facility] Address: [address] [place] [address] Performed By: #### 2 4323-8, 29545-0, 15625-4 ####[facility] LABCLIA [id number] [place] [address] [place] Cholesterol non HDL [Mass/Vol] 136 mg/dL High <130 [facility] Comment on above: Order Comment: Speci men Type: BLOOD SPECIMENOrdering Facility: [facility] Address: [address] [place] [address] Result Comment: <130 mg/dL, Optimal 130-159 mg/dL, Near optimal/above optimal 160-189 mg/dL, Borderline high 190-219 mg/dL, High >219 mg/dL, Very high Secondary prevention optimal non HDL Cholesterol levels are recommended to be <100 mg/dL Performed By: #### 2 4323-8, 11054-4, 56649-8 ####[facility] LABCLIA [id number] [place] [address] [place] Cholesterol.total/Cho lesterol in HDL [Mass ratio] 5.86 {ratio} High <5.10 [facility] Comment on above: Order Comment: Speci men Type: BLOOD SPECIMENOrdering Facility: [facility] Address: [address] [place] [address] Performed By: #### 2 4323-8, 87722-9, 75154-8 ####[facility] LABCLIA [id number] [place] [address] [place] FASTING TIME 12 hrs Normal [facility] Comment on above: Order Comment: Speci men Type: BLOOD SPECIMENOrdering Facility: [facility] Address: [address] [place] [address] Performed By: #### 2 4323-8, 24711-1, 77625-3 ####[facility] LABCLIA [id number] [place] [address] [place] Triglyceride [Mass/Vol] 144 mg/dL Normal <150 [facility] Comment on above: Order Comment: Speci men Type: BLOOD SPECIMENOrdering Facility: [facility] Address: [address] [place] [address] Result Comment: <150 mg/dL, Normal 150-199 mg/dL, Borderline high 200-499 mg/dL, High >499 mg/dL, Very high Performed By: #### 2 4323-8, 72267-5, 15041-7 ####[facility] LABCLIA [id number] [place] [address] [place] NT-proBNP [facility] 01-04 Natriuretic peptide.B prohormone N-Terminal [Mass/Vol] 213 pg/mL High <125 [facility] Comment on above: Order Comment: Speci men Type: BLOOD SPECIMENOrdering Facility: [facility] Address: [address] [place] [address] Performed By: #### 2 4323-8, 28255-4, 05574-4 ####[facility] LABCLIA [id number] [address] [place] CNOVon 12-26-2024 CNOV Office Visit (UCWSTR ) KENNY VALADEZ ([id number]) 1955 F Date Time Provider Department 12/26/24 5:[address] [facility] During your visit today, we recorded the following information about you: Temperature Pulse Respiration Blood pressure 97.8 degrees 80/minute 16/minute 122/[address] PA-C 12/26/2024 5:52 PM Signed This note was created using [employer]. Subjective Kennycaroline Valadez is a 69 year old female. Patient is a 69-year-old female who complains of an intensely itching and burning red rash to the lateral aspect of her left lower leg that has developed over the past 2 to 3 hours. Patient also notes raised areas which are tender to touch. Patient reports that earlier today her skin was clear and she was completely asymptomatic. Patient states that the remainder of the skin to her BSA is unaffected and that her symptoms are confined to the lateral aspect of her left lower leg. Patient noted no bleeding, serous or purulent fluid to the site. Patient states that her does have a history of shingles to his leg and that her current symptoms are consistent with same. Patient denies fever, chills or other illness symptoms. Patient reports that her last shingles vaccine was approximately 10 years ago. Rash Review of Systems Skin: Positive for rash. All other systems reviewed and are negative. Objective BP 122/70 Pulse 80 Temp 36.6 ?C (97.8 ?F) Resp 16 Wt 88.6 kg (195 lb 5.2 oz) SpO2 95% BMI 32.50 kg/m? Physical Exam Vitals and nursing note reviewed. Constitutional: Appearance: Normal appearance. She is normal weight. HENT: Head: Normocephalic and atraumatic. Nose: Nose normal. Mouth/Throat: Mouth: Mucous membranes are moist. Pharynx: Oropharynx is clear. Eyes: Extraocular Movements: Extraocular movements intact. Conjunctiva/sclera: Conjunctivae normal. Pupils: Pupils are equal, round, and reactive to light. Cardiovascular: Rate and Rhythm: Normal rate. Pulses: Normal pulses. Pulmonary: Effort: Pulmonary effort is normal. Breath sounds: Normal breath sounds. Musculoskeletal: General: Tenderness present. No swelling, deformity or signs of injury. Normal range of motion. Cervical back: Normal range of motion and neck supple. Left lower leg: No edema. Skin: General: Skin is warm and dry. Capillary Refill: Capillary refill takes less than 2 seconds. Findings: Erythema, lesion and rash present. No bruising. Comments: Intense erythema is noted and is clearly distributed to the left anterior L5 dermatome. There are multiple erythematous papules noted to be developing. The area is exquisitely tender to palpation. The skin is dry and there is no bleeding, serous or purulent fluid noted. Remainder of exam to the left leg is otherwise clear and unremarkable. Neurological: General: No focal deficit present. Mental Status: She is alert and oriented to person, place, and time. Psychiatric: Mood and Affect: Mood normal. Behavior: Behavior normal. Thought Content: Thought content normal. Judgment: Judgment normal. Assessment and Plan Physical exam findings as noted above. Patient was provided with a prescription for acyclovir 800 mg and skin care instructions were discussed. Patient verbalizes clear understanding of same. CLINICAL IMPRESSION: Herpes Zoster Left L5 Dermatome ASSESSMENT/PLAN: 1. Herpes zoster without complications - ICD9: 053.9, ICD10: B02.9 - ACYCLOVIR 800 [address] Allergies As of Date: 12/26/2024 Noted Allergy Reaction ANIMAL DANDER 04/08/2023 9 - Itching Comments: Itchy watery eyes, sneezing IMITREX (SUMATRIPTAN) 04/07/2023 14 - Other: See Comments OZEMPIC (SEMAGLUTIDE) 06/07/2024 5 - Intolerance Comments: Constipation PROPOXYPHENE 02/23/2024 14 - Other: See Comments STEROIDS (BETAMETHASONE DIPROPION*01/31/2008 STEROIDS (CORTICOSTEROIDS (GLUCOC*10/24/2024 14 - Other: See Comments Comments: blindness Date Reviewed: 12/26/2024 Reviewed by: Patricia Gibson MA - Fully Assessed Reason for Visit: Rash [1087] Cmt: left leg x 2 hours, itching and burning Primary Visit Diagnosis:Herpes zoster without complications [B02.9] Order(s):acyclovir (ZOVIRAX) 800 mg tabletTake 1 tablet by mouth five times a day for 10 days.Disp: 50 tabletRfl: 0 Prescriptions as of 12/26/2024 - acyclovir (ZOVIRAX) 800 mg tablet Take 1 tablet by mouth five times a day for 10 days. - blood sugar diagnostic ([employer] ULTRA TEST) test strip Use as instructed to test blood sugar 5 times daily. DX: E11.42, insulin dependent. - NOVOLOG FLEXPEN U-100 INSULIN 100 unit/mL (3 mL) INJECT SUBCUTANEOUSLY BREAKFAST 20 UNITS, LUNCH 20 UNITS , DINNER 20 UNITS PLUS SCALE UP TO 70 UNITS DAILY - Diclofenac Sodium 3 % gel Apply 0.5 g to affected area two times a day. - cycloSPORINE (RESTASIS) 0.05 (more content not included)... Normal [facility] 12-26-2024 SHERRI Telephone (SpotigoEmerson) KENNY VALADEZ ([id number]) 1955 F Date Time Provider Department 12/26/24 PHIL LAWTON During your visit today, we recorded the following information about you: Selina Vargas 12/26/2024 3:53 PM Jesscia Cox called and asked if there was any way she can see Dr. Lawton sooner than her 01/15 appointment at [facility]. She said her arm mass has become really painful, and she is having a really difficult time. Dr. Lawton does not have any sooner openings at [facility] right now, and she is on the Waiting List. She said Dr. Hawkins wants her to see Dr. Lawton specifically. Kylah, are there any openings for her at Dr. Lawton's [place] location? She is willing to travel to see him sooner. She said she will be available for calls and try to respond right away if she misses a call regarding scheduling to ensure she can take an appointment if it's offered to her. Thank you, Selina Vargas Allergies As of Date: 12/26/2024 Noted Allergy Reaction ANIMAL DANDER 04/08/2023 9 - Itching Comments: Itchy watery eyes, sneezing IMITREX (SUMATRIPTAN) 04/07/2023 14 - Other: See Comments OZEMPIC (SEMAGLUTIDE) 06/07/2024 5 - Intolerance Comments: Constipation PROPOXYPHENE 02/23/2024 14 - Other: See Comments STEROIDS (BETAMETHASONE DIPROPION*01/31/2008 STEROIDS (CORTICOSTEROIDS (GLUCOC*10/24/2024 14 - Other: See Comments Comments: blindness Date Reviewed: 12/26/2024 Reviewed by: Patricia Gibson MA - Fully Assessed Reason for Visit: Appointment [186] Prescriptions as of 01/03/2025 - carvedilol (COREG) 3.125 mg tablet TAKE 1 TABLET BY MOUTH TWICE A DAY WITH FOOD - ENTRESTO 24-26 mg tablet TAKE 1 TABLET BY MOUTH TWICE A DAY - acyclovir (ZOVIRAX) 800 mg tablet Take 1 tablet by mouth five times a day for 10 days. - blood sugar diagnostic ([employer]ides[employer]OUCH ULTRA TEST) test strip Use as instructed to test blood sugar 5 times daily. DX: E11.42, insulin dependent. - NOVOLOG FLEXPEN U-100 INSULIN 100 unit/mL (3 mL) INJECT SUBCUTANEOUSLY BREAKFAST 20 UNITS, LUNCH 20 UNITS , DINNER 20 UNITS PLUS SCALE UP TO 70 UNITS DAILY - Diclofenac Sodium 3 % gel Apply 0.5 g to affected area two times a day. - cycloSPORINE (RESTASIS) 0.05 % ophthalmic emulsion Use 1 Drop in both eyes two times a day. - spironolactone (ALDACTONE) 25 mg tablet Take 0.5 tablets by mouth three times a week. - nitroglycerin sublingual (NITROQUICK) 0.4 mg SL tablet Dissolve 1 tablet under the tongue every 5 minutes as needed for chest pain. - bempedoic acid (NEXLETOL) 180 mg tablet Take 1 tablet (180 mg) by mouth once daily. - TRESIBA FLEXTOUCH U-200 200 unit/mL (3 mL) injection Inject subcutaneously 70 units daily - dapagliflozin propanediol (FARXIGA) 10 mg tablet Take 1 tablet by mouth daily with breakfast. - clopidogrel (PLAVIX) 75 mg tablet Take 1 tablet by mouth once daily. - diphenhydrAMINE (BENADRYL ALLERGY) 12.5 mg/5 mL liquid - insulin needles, DISPOSABLE, (BD INSULIN PEN NEEDLE UF) 31 gauge x 5/16 Use 4 pen needles daily - Multivitamin capsule Take 1 capsule by mouth once daily. - aspirin, enteric coated (ASPIRIN, ENTERIC COATED) 81 mg EC tablet Take 1 tablet by mouth once daily. Problem List As Of Date 12/26/2024 Noted Resolved CERVICAL DISC DISPLACMNT [M50.20] 02/03/2008 Chronic sinusitis [J32.9] 06/09/2012 Albuminuria [R80.9] 02/19/2021 Recurrent UTI [N39.0] 02/19/2021 Dysuria [R30.0] 02/19/2021 Essential hypertension [I10] 02/19/2021 Type 2 diabetes mellitus with diabetic polyneur*03/07/2021 Mixed hyperlipidemia [E78.2] 03/07/2021 Nontoxic single thyroid nodule [E04.1] 12/04/2022 NSTEMI (non-ST elevated myocardial infarction) *04/08/2023 04/13/2023 Primary hypertension [I10] 04/08/2023 Acute systolic CHF (congestive heart failure) (*04/13/2023 Dyslipidemia [E78.5] 04/13/2023 Pericardial effusion [I31.39] 04/13/2023 Coronary artery disease of chitina artery of jf*05/03/2023 Chronic systolic congestive heart failure (HCC)*05/03/2023 Cardiomyopathy, ischemic [I25.5] 05/03/2023 Hypoglycemia due to type 2 diabetes mellitus (H*08/10/2023 Statin intolerance [Z78.9] 10/18/2023 Type 2 diabetes mellitus with diabetic microalb*06/07/2024 Obesity, Class I, BMI 30-34.9 [E66.811] 06/07/2024 Encounter Status:Closed by SELINA [facility]AS [facility]03/[facility] VAL[facility] ([id number]) 1955 F Date Time Provider Department 12/26/24 MARY KATE BARBER During your visit today, we recorded the following information about you: Kori Manuel, MENDY 12/26/2024 4:08 PM Signed Received a PA request for glucose test strips quantity and day supply exceeds plan limits. RX was sent for 5 times daily testing. Insurance does not cover this frequency. Last office notes states she beltran snot have consistency to her meals, BG monitoring or insulin administrations, but did not specify a certain testing frequency of 5 times per day. She reported to testing 3 times daily... If she is to test this often she may need to be considered for a CGM or be switched to 3 times daily testing. Please advise. Mary Kate Barber APRN.MANAGER NEWS 12/26/2024 4:42 PM Signed I would like to try for the 5 strips per day. I added more information to the office note. Thank you Dorcas Funez, RN 12/27/2024 10:04 AM Signed Tried to do a PA for the test strips for 5 times a day but was not able to. Received this message: 76--QTY EXCEEDED ZULEMA GIMENEZ - VISIT [email or web address] OR CALL [phone] MAX QTY OF 450.000 IN 075 DAYS QUANTITY REMAINING .000 NEXT FILL DATE 01/08/2025, LAST FILL DATE 10/25/2024 @[facility],# [phone] Please review and advise. Mary Kate Barber APRN.MANAGER NEWS 12/27/2024 11:13 AM Signed Noted Thank you for trying. Allergies As of Date: 12/26/2024 Noted Allergy Reaction ANIMAL DANDER 04/08/2023 9 - Itching Comments: Itchy watery eyes, sneezing IMITREX (SUMATRIPTAN) 04/07/2023 14 - Other: See Comments OZEMPIC (SEMAGLUTIDE) 06/07/2024 5 - Intolerance Comments: Constipation PROPOXYPHENE 02/23/2024 14 - Other: See Comments STEROIDS (BETAMETHASONE DIPROPION*01/31/2008 STEROIDS (CORTICOSTEROIDS (GLUCOC*10/24/2024 14 - Other: See Comments Comments: blindness Date Reviewed: 12/26/2024 Reviewed by: Patricia Gibson MA - Fully Assessed Reason for Visit: PA--GLUCOSE TEST STRIPS [Other] Prescriptions as of 12/27/2024 - acyclovir (ZOVIRAX) 800 mg tablet Take 1 tablet by mouth five times a day for 10 days. - blood sugar diagnostic ([employer] ULTRA TEST) test strip Use as instructed to test blood sugar 5 times daily. DX: E11.42, insulin dependent. - NOVOLOG FLEXPEN U-100 INSULIN 100 unit/mL (3 mL) INJECT SUBCUTANEOUSLY BREAKFAST 20 UNITS, LUNCH 20 UNITS , DINNER 20 UNITS PLUS SCALE UP TO 70 UNITS DAILY - Diclofenac Sodium 3 % gel Apply 0.5 g to affected area two times a day. - cycloSPORINE (RESTASIS) 0.05 % ophthalmic emulsion Use 1 Drop in both eyes two times a day. - spironolactone (ALDACTONE) 25 mg tablet Take 0.5 tablets by mouth three times a week. - sacubitril-valsartan (ENTRESTO) 24-26 mg tablet Take 1 tablet by mouth two times a day. - nitroglycerin sublingual (NITROQUICK) 0.4 mg SL tablet Dissolve 1 tablet under the tongue every 5 minutes as needed for chest pain. - bempedoic acid (NEXLETOL) 180 mg tablet Take 1 tablet (180 mg) by mouth once daily. - TRESIBA FLEXTOUCH U-200 200 unit/mL (3 mL) injection Inject subcutaneously 70 units daily - dapagliflozin propanediol (FARXIGA) 10 mg tablet Take 1 tablet by mouth daily with breakfast. - clopidogrel (PLAVIX) 75 mg tablet Take 1 tablet by mouth once daily. - diphenhydrAMINE (BENADRYL ALLERGY) 12.5 mg/5 mL liquid - carvedilol (COREG) 3.125 mg tablet take 1 tablet by mouth twice a day with food - insulin needles, DISPOSABLE, (BD INSULIN PEN NEEDLE UF) 31 gauge x 5/16 Use 4 pen needles daily - Multivitamin capsule Take 1 capsule by mouth once daily. - aspirin, enteric coated (ASPIRIN, ENTERIC COATED) 81 mg EC tablet Take 1 tablet by mouth once daily. Problem List As Of Date 12/26/2024 Noted Resolved CERVICAL DISC DISPLACMNT [M50.20] 02/03/2008 Chronic sinusitis [J32.9] 06/09/2012 Albuminuria [R80.9] 02/19/2021 Recurrent UTI [N39.0] 02/19/2021 Dysuria [R30.0] 02/19/2021 Essential hypertension [I10] 02/19/2021 Type 2 diabetes mellitus with diabetic polyneur*03/07/2021 Mixed hyperlipidemia [E78.2] 03/07/2021 Nontoxic single thyroid nodule [E04.1] 12/04/2022 NSTEMI (non-ST elevated myocardial infarction) *04/08/2023 04/13/2023 Primary hypertension [I10] 04/08/2023 Acute systolic CHF (congestive heart failure) (*04/13/2023 Dyslipidemia [E78.5] 04/13/2023 Pericardial effusion [I31.39] 04/13/2023 Coronary artery disease of chitina artery of jf*05/03/2023 Chronic systolic congestive heart failure (HCC)*05/03/2023 Cardiomyopathy, ischemic [I25.5] 05/03/2023 Hypoglycemia due to type 2 diabetes mellitus (H*08/10/2023 Statin intolerance [Z78.9] 10/18/2023 Type 2 diabetes mellitus with diabetic microalb*06/07/2024 Obesity, Class I, BMI 30-34.9 [E66.811] 06/07/2024 Encounter Status:Closed by MARY KATE BARBER on 12/27/24 [facility] CNOVon 12-21-2024 CNOV Office Visit (ENDMED ) RORYKENNY Jazmín ([id number]) 1955 F Date Time Provider Department 12/21/24 3:45 PM MARY KATE BARBER ENDLUNA During your visit today, we recorded the following information about you: Pulse Respiration Blood pressure Weight 82/minute 16/minute 117/77 87.3 kg Height 1.651 m Mary Kate Barber, SEWER MAINTENANCE SUPERVISOR.MANAGER NEWS 12/26/2024 4:41 PM Addendum Reason for Consultation: DM Type 2 Referring Physician: Luli Perdomo MD [address] [facility] [address] HISTORY OF PRESENT ILLNESS; Ms. Valadez is a 69 year old female presenting for follow up regarding DM Type 2. She was initially diagnosed with diabetes approx. 2000. She has been on insulin since at least age 55. LV 09/07/24 A1C today is 8.3. up from 7.5 in August History of diabetes, HTN, HLD, peripheral neuropathy, obesity, allergies, thyroid nodule, BELA, NSTEMI s/p stent , microalbuminuria, CKD Denies pancreatitis, medullary TC, gastroparesis She was unable to tolerate Mounjaro due to extreme constipation Having and upcoming stress test due to chest pain. Following with cardiology Admits diet has been poor--candy bars, mosotho or guatemalan food for dinner CGM was cost prohibitive. She wants to be able to check her glucose 5x per day--with 3 meals, bedtime and AM snack time--however insurance will only pay for 3 strips per day. She has hyperglycemia with a rising A1C. She is under the care of nephrology, Dr. Perdomo and cardiology Dr. Dodd. Her current diabetes regimen is: Tresiba (u200 pen) 70 units daily at noon Farxiga 10 mg daily Novolog 20 units TID meals plus SS If Blood Glucose (mg/dL) is < 150 Give 0 units 151-200 Give 1 unit 201-250 Give 2 units 251-300 Give 3 units 301-350 Give 4 units >351 Give 5 units Previous DM medications: Glyburide actos janumet Glucotrol Metformin--stomach upset. Levemir--ineffective Trulicity --stomach issues. Ozempic--severe constipation Mounjaro--severe constipation Regarding symptoms of hyperglycemia, she is not experiencing polyuria and polydipsia. Exercise:Mil Cox is checking her blood glucose 3+ times per day She did bring a logbook today for review: Fastin's--might take a correction --bagel, egg, often before work 10:30 AM : 160-180 ; 114 today 1:30: lunch time: 120-130 --skips novolog if BG is normal acS (5-7:30 dinner): no BG; taking 20 units but might be an hour later HS 200-300 range; uses novolog 10 to 15 units Hypoglycemia frequency: occasionally; feels symptomatically low even in 100 range Hypoglycemia awareness: Yes Overall, the patient has no acute complaints at this time. HTN: Intolerant to KALIE ARB--Entresto HLD: Not currently on a statin. PAST MEDICAL HISTORY Diagnosis Date Arthritis Asthma CERVICAL DISC DISPLACMNT 02/03/2008 Chronic systolic heart failure (HCC) Coronary artery disease Degenerative disc disease Diabetes mellitus type 2, controlled (HCC) Herniated disc HLD (hyperlipidemia) HTN (hypertension) Ischemic cardiomyopathy Migraines BELA (obstructive sleep apnea) Pericardial effusion 04/13/2023 Thyroid nodule Unspecified essential hypertension Essential hypertension PAST SURGICAL HISTORY Procedure Laterality Date ADENOIDECTOMY PRIMARY Adenoidectomy APPENDECTOMY W/ exploratory lap BACK SURGERY HX CHOLECYSTECTOMY REMV CATARACT EXTRACAP,INSERT LENS Bilateral 09/2023 TONSILLECTOMY PRIMARY/SECONDARY Tonsillectomy VAGINAL HYSTERECTOMY UTERUS 250 GM/< Hysterectomy, vaginal FAMILY HISTORY Problem Relation Age of Onset Heart Mother Allergies Mother Arthritis Mother Asthma Mother Genitourinary () Mother bladder suspension in her 50's Hearing Loss Mother Hypertension Mother Lipids Mother Osteoporosis Mother Heart Father Cancer Father sarcoma Diabetes Father Hearing Loss Father Hypertension Father Lipids Father Stroke Father TIA'S Heart Maternal Grandmother Heart Maternal Grandfather Heart Paternal Grandmother Diabetes Paternal Grandmother other (Goiter) Paternal Grandmother Heart Paternal Grandfather Cancer Paternal Aunt I lost 11 aunts and uncles Cancer Paternal Uncle I lost 11 aunts and uncles Diabetes Paternal Aunt Diabetes Maternal Uncle Headache Daughter migraines Social History Tobacco Use Smoking status: Never Smokeless tobacco: Never Tobacco comments: Secondhand smoke exposure x 30 years (Father and 1st ) Substance Use Topics Alcohol use: Yes Comment: rare Drug use: No Current Outpatient Medications Medication Sig Dispense Refill Diclofenac Sodium 3 % gel Apply 0.5 g to affected area two times a day. 100 g 0 cycloSPORINE (RESTASIS) 0.05 % ophthalmic emulsion Use 1 Drop in both eyes two times a day. 180 Each 0 spironolactone (ALDACTONE) 25 mg tablet Take 0.5 tablets by mouth three times (more content not included)... Normal [facility] HEMOGLOBIN A1C (POC)on 12-21 HbA1c (Bld) [Mass fraction] 8.3 % Abnormal 4.3 - 5.6 % [facility] Comment on above: Location:[facility], [address] [place] [address], [phone] Point of care (POC) Hemoglobin A1c (HGBA1C) testing is intended to assess glucose control and provide a management tool for patients known to have diabetes and their healthcare providers. Target HGBA1C levels may depend on specific clinical circumstances. POC HGBA1C is not intended for use as a diagnostic or screening test; laboratory-based testing should be used for diagnostic purposes. The following information is supplemental and may not be applicable to specific diabetes management situations: The POC device die cast technician provides a normal range of 4.2% to 6.5% for the HGBA1C POC test. However, the [place] [employer] guidelines indicate that patients with HGBA1C in the range of 5.7% to 6.4% are at increased risk for development of diabetes and that intervention by lifestyle modification may be beneficial. A HGBA1C level greater than or equal to 6.5% is considered diagnostic of diabetes, pending confirmatory testing. Use of HGBA1C testing to evaluate glucose control may not be appropriate for patients with hemoglobin variants or other conditions (e.g. anemia) that alter red blood cell lifespan. Interpretation and review of laboratory results Abnormal [facility] CNOVon 12-11-2024 CNOV Office Visit (JOHN ) KENNY VALADEZ ([id number]) 1955 F Date Time Provider Department 12/11/24 4:00 PM YARED DODD During your visit today, we recorded the following information about you: Pulse Respiration Blood pressure Weight 80/minute 16/minute 138/90 87.1 kg Height 1.651 m Yared Dodd MD 12/11/2024 4:42 PM [facility] SECTION OF [facility] CARDI[facility] Cardiology [place] ([facility]ld[facility] POB)) [address] [facility] [address] OUTPATIENT VISIT DATE 12/11/2024 PRIMARY CARE PHYSICIAN: David Wynn [address] [place] [id number] HISTORY OF PRESENT ILLNESS: Ms. Valadez is a 69 year old woman has a history of coronary artery disease and anterior wall myocardial infarction in March 2023 when she presented to hospital with atypical back pain and was found to have evidence of ST elevation underwent emergent cardiac catheterization. She has a resulting ischemic cardiomyopathy ejection fraction of 30%, chronic systolic congestive heart failure, and dyslipidemia. She has a history of diabetes which is insulin requiring. She presents to the office for routine follow-up. Patient reports a few episodes of chest pain mostly right-sided but radiating toward the left. She is also had left upper arm pain. Symptoms are not consistent with exertion. There was no associated diaphoresis or shortness of breath. She had persistent symptoms and was seen in the emergency room. She ruled out for an acute coronary syndrome. PAST MEDICAL HISTORY Diagnosis Date Arthritis Asthma CERVICAL DISC DISPLACMNT 02/03/2008 Chronic systolic heart failure (HCC) Coronary artery disease Degenerative disc disease Diabetes mellitus type 2, controlled (HCC) Herniated disc HLD (hyperlipidemia) HTN (hypertension) Ischemic cardiomyopathy Migraines BELA (obstructive sleep apnea) Pericardial effusion 04/13/2023 Thyroid nodule Unspecified essential hypertension Essential hypertension PAST SURGICAL HISTORY Procedure Laterality Date ADENOIDECTOMY PRIMARY Adenoidectomy APPENDECTOMY W/ exploratory lap BACK SURGERY HX CHOLECYSTECTOMY REMV CATARACT EXTRACAP,INSERT LENS Bilateral 09/2023 TONSILLECTOMY PRIMARY/SECONDARY Tonsillectomy VAGINAL HYSTERECTOMY UTERUS 250 GM/< Hysterectomy, vaginal SOCIAL HISTORY Social History Tobacco Use Smoking status: Never Smokeless tobacco: Never Tobacco comments: Secondhand smoke exposure x 30 years (Father and 1st ) Substance Use Topics Alcohol use: Yes Comment: rare Drug use: No FAMILY HISTORY Problem Relation Age of Onset Heart Mother Allergies Mother Arthritis Mother Asthma Mother Genitourinary () Mother bladder suspension in her 50's Hearing Loss Mother Hypertension Mother Lipids Mother Osteoporosis Mother Heart Father Cancer Father sarcoma Diabetes Father Hearing Loss Father Hypertension Father Lipids Father Stroke Father TIA'S Heart Maternal Grandmother Heart Maternal Grandfather Heart Paternal Grandmother Diabetes Paternal Grandmother other (Goiter) Paternal Grandmother Heart Paternal Grandfather Cancer Paternal Aunt I lost 11 aunts and uncles Cancer Paternal Uncle I lost 11 aunts and uncles Diabetes Paternal Aunt Diabetes Maternal Uncle Headache Daughter migraines ALLERGIES: ALLERGIES Allergen Reactions Animal Dander Itching Itchy watery eyes, sneezing Imitrex [Sumatripta* Other: See Comments Ozempic [Semaglutid* Intolerance Constipation Propoxyphene Other: See Comments Steroids [Betametha* Steroids [Corticost* Other: See Comments blindness MEDICATIONS: Diclofenac Sodium 3 % gel Apply 0.5 g to affected area two times a day. cycloSPORINE (RESTASIS) 0.05 % ophthalmic emulsion Use 1 Drop in both eyes two times a day. azithromycin (ZITHROMAX) 250 mg tablet TAKE 2 TABLETS BY MOUTH TODAY, THEN TAKE 1 TABLET DAILY FOR 4 DAYS DIRECTED (Patient not taking: Reported on 10/23/2024) spironolactone (ALDACTONE) 25 mg tablet Take 0.5 tablets by mouth three times a week. sacubitril-valsartan (ENTRESTO) 24-26 mg tablet Take 1 tablet by mouth two times a day. nitroglycerin sublingual (NITROQUICK) 0.4 mg SL tablet Dissolve 1 tablet under the tongue every 5 minutes as needed for chest pain. bempedoic acid (NEXLETOL) 180 mg tablet Take 1 tablet (180 mg) by mouth once daily. TRESIBA FLEXTOUCH U-200 200 unit/mL (3 mL) injection Inject subcutaneously 70 units daily dapagliflozin propanediol (FARXIGA) 10 mg tablet Take 1 tablet by mouth daily with breakfast. clopidogrel (PLAVIX) 75 mg tablet Take 1 tablet by mouth once daily. blood sugar diagnostic ([employer] ULTRA TEST) test strip Use as instructed to test blood sugar 3 times daily. DX: (more content not included)... Normal [facility] US Extremity - lefton 2024 IMPRESSION: Findings as discussed under Results portion of report. Casting Machine Set Up Operator: MAJO Transcribe Date/Time: Dec 06 2024 10:26A Dictated by : CLAUS DIAZ DO This examination was interpreted and the report reviewed and electronically signed by: CLAUS DIAZ DO on Dec 06 2024 10:35AM [facility] RADIOLOG[facility] * * *Final Report* * * DATE OF EXAM: Dec 05 2024 5:58PM [facility] 1024 - US EXT MASS/FLUID COLLECTION LT / PROCEDURE REASON: R22.32-Arm mass, left * * * * Physician Interpretation * * * * Ultrasound US EXT MASS/FLUID COLLECTION LT HISTORY: Arm mass, left TECHNIQUE: Views obtained: Multiple sagittal and axial images.Images stored and permanent archive. Comparison: None RESULT: Findings: Solid mass corresponding to the palpable abnormality in the forearm. This mass measures 4.5 x 3.4 x 1.7 cm. There is very heterogeneous in texture . Very small somewhat anechoic area which may be this collection of fluid just superficial to this region. This area measures approximately 3 mm in diameter. [facility] Provider, Toy Lott - 12/06/2024 * * *Final Report* * * DATE OF EXAM: Dec 05 2024 5:58PM [facility] 1024 - US EXT MASS/FLUID COLLECTION LT / PROCEDURE REASON: R22.32-Arm mass, left * * * * Physician Interpretation * * * * Ultrasound US EXT MASS/FLUID COLLECTION LT HISTORY: Arm mass, left TECHNIQUE: Views obtained: Multiple sagittal and axial images.Images stored and permanent archive. Comparison: None RESULT: Findings: Solid mass corresponding to the palpable abnormality in the forearm. This mass measures 4.5 x 3.4 x 1.7 cm. There is very heterogeneous in texture . Very small somewhat anechoic area which may be this collection of fluid just superficial to this region. This area measures approximately 3 mm in diameter. IMPRESSION IMPRESSION: Findings as discussed under Results portion of report. Casting Machine Set Up Operator: PSCB Transcribe Date/Time: Dec 06 2024 10:26A Dictated by : CLAUS DIAZ DO This examination was interpreted and the report reviewed and electronically signed by: CLAUS DIAZ DO on Dec 06 2024 10:35AM EST [facility] US Extremity - leftOrdered B y: [facility] Provider on 12-06-2024 [facility] CNOVon 12-05-2024 CNOV Office Visit (GENSME ) KENNY VALADEZ ([id number]) 1955 F Date Time Provider Department 12/05/24 3:30 PM SUSHIL HAWKINS During your visit today, we recorded the following information about you: Pulse Blood pressure Weight Height 86/minute 113/78 87 kg 1.651 m Sushil Hawkins MD 12/18/2024 12:11 PM Signed HISTORY AND PHYSICAL Kenny Valadez 1955 REFERRING PHYSICIAN: Self CHIEF COMPLAINT: Consult (LARGE CYST ON L ARM/) HPI: The patient is a 69 year old female with a complaint of mass on her left forearm. This been present since the 70s this is increased in size significantly over this last year she states that she thinks has been firm entirely but now it is much harder causing more compression symptoms on her forearm. PAST MEDICAL HISTORY Diagnosis Date Arthritis Asthma CERVICAL DISC DISPLACMNT 02/03/2008 Chronic systolic heart failure (HCC) Coronary artery disease Degenerative disc disease Diabetes mellitus type 2, controlled (HCC) Herniated disc HLD (hyperlipidemia) HTN (hypertension) Ischemic cardiomyopathy Migraines BELA (obstructive sleep apnea) Pericardial effusion 04/13/2023 Thyroid nodule Unspecified essential hypertension Essential hypertension PAST SURGICAL HISTORY Procedure Laterality Date ADENOIDECTOMY PRIMARY Adenoidectomy APPENDECTOMY W/ exploratory lap BACK SURGERY HX CHOLECYSTECTOMY REMV CATARACT EXTRACAP,INSERT LENS Bilateral 09/2023 TONSILLECTOMY PRIMARY/SECONDARY Tonsillectomy VAGINAL HYSTERECTOMY UTERUS 250 GM/< Hysterectomy, vaginal Current Outpatient Medications Medication Sig Diclofenac Sodium 3 % gel Apply 0.5 g to affected area two times a day. cycloSPORINE (RESTASIS) 0.05 % ophthalmic emulsion Use 1 Drop in both eyes two times a day. azithromycin (ZITHROMAX) 250 mg tablet TAKE 2 TABLETS BY MOUTH TODAY, THEN TAKE 1 TABLET DAILY FOR 4 DAYS DIRECTED (Patient not taking: Reported on 10/23/2024) spironolactone (ALDACTONE) 25 mg tablet Take 0.5 tablets by mouth three times a week. sacubitril-valsartan (ENTRESTO) 24-26 mg tablet Take 1 tablet by mouth two times a day. nitroglycerin sublingual (NITROQUICK) 0.4 mg SL tablet Dissolve 1 tablet under the tongue every 5 minutes as needed for chest pain. bempedoic acid (NEXLETOL) 180 mg tablet Take 1 tablet (180 mg) by mouth once daily. TRESIBA FLEXTOUCH U-200 200 unit/mL (3 mL) injection Inject subcutaneously 70 units daily dapagliflozin propanediol (FARXIGA) 10 mg tablet Take 1 tablet by mouth daily with breakfast. clopidogrel (PLAVIX) 75 mg tablet Take 1 tablet by mouth once daily. blood sugar diagnostic (The Green Life GuidesTOUCH ULTRA TEST) test strip Use as instructed to test blood sugar 3 times daily. DX: E11.42, insulin dependent. diphenhydrAMINE (BENADRYL ALLERGY) 12.5 mg/5 mL liquid NOVOLOG FLEXPEN U-100 INSULIN 100 unit/mL (3 mL) INJECT SUBCUTANEOUSLY BREAKFAST 20 UNITS, LUNCH 20 UNITS , DINNER 20 UNITS PLUS SCALE UP TO 70 UNITS DAILY carvedilol (COREG) 3.125 mg tablet take 1 tablet by mouth twice a day with food insulin needles, DISPOSABLE, (BD INSULIN PEN NEEDLE UF) 31 gauge x 5/16 Use 4 pen needles daily Multivitamin capsule Take 1 capsule by mouth once daily. aspirin, enteric coated (ASPIRIN, ENTERIC COATED) 81 mg EC tablet Take 1 tablet by mouth once daily. No current facility-administered medications for this visit. ALLERGIES: Animal Dander, Imitrex [Sumatriptan], Ozempic [Semaglutide], Propoxyphene, Steroids [Betamethasone Dipropionate], and Steroids [Corticosteroids (Glucocorticoids)] PERSONAL HISTORY: Social History Tobacco Use Smoking status: Never Smokeless tobacco: Never Tobacco comments: Secondhand smoke exposure x 30 years (Father and 1st ) Substance Use Topics Alcohol use: Yes Comment: rare Drug use: No FAMILY HISTORY: FAMILY HISTORY Problem Relation Age of Onset Heart Mother Allergies Mother Arthritis Mother Asthma Mother Genitourinary () Mother bladder suspension in her 50's Hearing Loss Mother Hypertension Mother Lipids Mother Osteoporosis Mother Heart Father Cancer Father sarcoma Diabetes Father Hearing Loss Father Hypertension Father Lipids Father Stroke Father TIA'S Heart Maternal Grandmother Heart Maternal Grandfather Heart Paternal Grandmother Diabetes Paternal Grandmother other (Goiter) Paternal Grandmother Heart Paternal Grandfather Cancer Paternal Aunt I lost 11 aunts and uncles Cancer Paternal Uncle I lost 11 aunts and uncles Diabetes Paternal Aunt Diabetes Maternal Uncle Headache Daughter migraines REVIEW OF SYMPTOMS: negative except as noted above PHYSICAL EXAMINATION: General: The patient is 69 year old female, well nourished, well hydrated in no acute distress. The patient is oriented to time, place, and person. VITALS: Blood press (more content not included)... Normal [facility] US EXT MASS/FLUID COLLECTION LTon 12-05-2024 US EXT MASS/FLUID COLLECTION LT * * *Final Report* * * DATE OF EXAM: Dec 05 2024 5:58PM MDU 1024 - US EXT MASS/FLUID COLLECTION LT / PROCEDURE REASON: R22.32-Arm mass, left * * * * Physician Interpretation * * * * Ultrasound US EXT MASS/FLUID COLLECTION LT HISTORY: Arm mass, left TECHNIQUE: Views obtained: Multiple sagittal and axial images.Images stored and permanent archive. Comparison: None RESULT: Findings: Solid mass corresponding to the palpable abnormality in the forearm. This mass measures 4.5 x 3.4 x 1.7 cm. There is very heterogeneous in texture . Very small somewhat anechoic area which may be this collection of fluid just superficial to this region. This area measures approximately 3 mm in diameter. IMPRESSION: Findings as discussed under Results portion of report. Casting Machine Set Up Operator: MAJO Transcribe Date/Time: Dec 06 2024 10:26A Dictated by : CLAUS DIAZ DO This examination was interpreted and the report reviewed and electronically signed by: CLAUS DIAZ DO on Dec 06 2024 10:35AM EST [id number] Normal [facility] US Extremity - lefton 2024 Radiology Study [facility] (narrative[facility] HNO ID: [id number] Author: HALIE RIVERA RT(R) Service: Radiology Author Type: Filling Station Attendant Type: Allied Health Filed: 10/24/2024 15:00 Note Text: Radiology Service Progress Note PATIENT NAME: Kenny Valadez DATE OF SERVICE: October 24, 2024 TIME: 2:59 PM PATIENT IDENTITY VERIFICATION COMPLETED USING TWO (2) IDENTIFIERS: Name and Date of confirmed by patient verbally. FALL SCREENING: Has the patient had 2 falls in the last year or 1 fall with injury or currently using an Ambulatory Assistive Device (Walker, Cane, Wheelchair, Crutches, etc.)? Emergency Room Patient: Screened in ED PATIENT GENDER DATA: Female. status: : No status: NO. PATIENT RELEVANT IMPLANT DATA REVIEWED: Not Applicable PATIENT PRESENTS WITH AN IMPLANTABLE OR ATTACHED CORE ANALYST: No RADIOLOGY DEPARTMENT: General X-ray: Exam(s) Completed: Chest X-Ray PERIPHERAL IV DATA: Not applicable SIGNED BY: RT Mindi(R) October 24, 2024 2:59 PM [facility] CBC W Auto Differential pane l (Bld)on 10-24-2024 Basophils (Bld) [#/Vol] 0.05 10*3/uL Normal <0.11 [facility] Comment on above: Order Comment: Speci men Type: BLOOD SPECIMENOrdering Facility: [facility] Address: [address] [place] [address] [place] [address] Performed By: #### 5 7021-8 ####[facility] LABORATORYCLIA [id number] [place] [address] [place] Basophils/100 WBC (Bld) 0.5 % Normal [facility] Comment on above: Order Comment: Speci men Type: BLOOD SPECIMENOrdering Facility: [facility] Address: [address] [place] [address] Performed By: #### 5 7021-8 ####[facility] LABORATORYCLIA [id number] [address] [place] Differential cell count method Nom (Bld) Auto Normal [facility] Comment on above: Order Comment: Speci men Type: BLOOD SPECIMENOrdering Facility: [facility] Address: [address] [place] [address] Performed By: #### 5 7021-8 ####[facility] LABORATORYCLIA [id number] [place] [address] [place] Eosinophils (Bld) [#/Vol] 0.40 10*3/uL Normal <0.46 [facility] Comment on above: Order Comment: Speci men Type: BLOOD SPECIMENOrdering Facility: [facility] Address: [address] [place] [address] Performed By: #### 5 7021-8 ####[facility] LABORATORYCLIA [id number] [address] [place] Eosinophils/100 WBC (Bld) 4.4 % Normal [facility] Comment on above: Order Comment: Speci men Type: BLOOD SPECIMENOrdering Facility: [facility] Address: [address] [place] [address] Performed By: #### 5 7021-8 ####[facility] LABORATORYCLIA [id number] [address] [place] Erythrocyte distribution width (RBC) [Ratio] 12.5 % Normal 11.5-15.0 [facility] Comment on above: Order Comment: Speci men Type: BLOOD SPECIMENOrdering Facility: [facility] Address: [address] [place] [address] Performed By: #### 5 7021-8 ####[facility] LABORATORYCLIA [id number] [address] [place] Hematocrit (Bld) [Volume fraction] 47.3 % High 36.0-46.0 [facility] Comment on above: Order Comment: Speci men Type: BLOOD SPECIMENOrdering Facility: [facility] Address: [address] [place] [address] Performed By: #### 5 7021-8 ####[facility] LABORATORYCLIA [id number] [place] [address] [place] Hemoglobin (Bld) [Mass/Vol] 16.2 g/dL High 11.5-15.5 [facility] Comment on above: Order Comment: Speci men Type: BLOOD SPECIMENOrdering Facility: [facility] Address: [address] [place] [address] Performed By: #### 5 7021-8 ####[facility] LABORATORYCLIA [id number] [place] [address] [place] Immature granulocytes (Bld) [#/Vol] 10*3/uL Normal <0.10 [facility] Comment on above: Order Comment: Speci men Type: BLOOD SPECIMENOrdering Facility: [facility] Address: [address] [place] [address] Performed By: #### 5 7021-8 ####[facility] LABORATORYCLIA [id number] [place] [address] [place] Immature granulocytes/100 WBC (Bld) 0.2 % Normal [facility] Comment on above: Order Comment: Speci men Type: BLOOD SPECIMENOrdering Facility: [facility] Address: [address] [place] [address] Performed By: #### 5 7021-8 ####[facility] LABORATORYCLIA [id number] [place] [address] [place] Lymphocytes (Bld) [#/Vol] 2.71 10*3/uL Normal 1.00-4.00 [facility] Comment on above: Order Comment: Speci men Type: BLOOD SPECIMENOrdering Facility: [facility] Address: [address] [place] [address] Performed By: #### 5 7021-8 ####[facility] LABORATORYCLIA [id number] [place] [address] [place] Lymphocytes/100 WBC (Bld) 29.5 % Normal [facility] Comment on above: Order Comment: Speci men Type: BLOOD SPECIMENOrdering Facility: [facility] Address: [address] [place] [address] Performed By: #### 5 7021-8 ####[facility] LABORATORYCLIA [id number] [address] MCH (RBC) [Entitic mass] 30.1 pg Normal 26.0-34.0 [facility] Comment on above: Order Comment: Speci men Type: BLOOD SPECIMENOrdering Facility: [facility] Address: [address] [place] [address] Performed By: #### 5 7021-8 ####[facility] LABORATORYCLIA [id number] [address] MCHC (RBC) [Mass/Vol] 34.2 g/dL Normal 30.5-36.0 [facility] Comment on above: Order Comment: Speci men Type: BLOOD SPECIMENOrdering Facility: [facility] Address: [address] [place] [address] Performed By: #### 5 7021-8 ####[facility] LABORATORYCLIA [id number] [address] MCV (RBC) [Entitic vol] 87.9 fL Normal 80.0-100.0 [facility] Comment on above: Order Comment: Speci men Type: BLOOD SPECIMENOrdering Facility: [facility] Address: [address] [place] [address] Performed By: #### 5 7021-8 ####[facility] LABORATORYCLIA [id number] [address] Monocytes (Bld) [#/Vol] 0.58 10*3/uL Normal <0.87 [facility] Comment on above: Order Comment: Speci men Type: BLOOD SPECIMENOrdering Facility: [facility] Address: [address] [place] [address] Performed By: #### 5 7021-8 ####[facility] LABORATORYCLIA [id number] [address] Monocytes/100 WBC (Bld) 6.3 % Normal [facility] Comment on above: Order Comment: Speci men Type: BLOOD SPECIMENOrdering Facility: [facility] Address: [address] [place] [address] Performed By: #### 5 7021-8 ####[facility] LABORATORYCLIA [id number] [place] [address] [place] Neutrophils (Bld) [#/Vol] 5.43 10*3/uL Normal 1.45-7.50 [facility] Comment on above: Order Comment: Speci men Type: BLOOD SPECIMENOrdering Facility: [facility] Address: [address] [place] [address] Performed By: #### 5 7021-8 ####[facility] LABORATORYCLIA [id number] [place] [address] [place] Neutrophils/100 WBC (Bld) 59.1 % Normal [facility] Comment on above: Order Comment: Speci men Type: BLOOD SPECIMENOrdering Facility: [facility] Address: [address] [place] [address] Performed By: #### 5 7021-8 ####[facility] LABORATORYCLIA [id number] [place] [address] [place] Nucleated RBC (Bld) [#/Vol] 10*3/uL Normal <0.01 [facility] Comment on above: Order Comment: Speci men Type: BLOOD SPECIMENOrdering Facility: [facility] Address: [address] [place] [address] Performed By: #### 5 7021-8 ####[facility] LABORATORYCLIA [id number] [place] [address] [facility] [place] Nucleated RBC/100 WBC (Bld) [Ratio] 0.0 /100 WBC Normal [facility] Comment on above: Order Comment: Speci men Type: BLOOD SPECIMENOrdering Facility: [facility] Address: [address] [place] [address] Performed By: #### 5 7021-8 ####[facility] LABORATORYCLIA [id number] [place] [address] [place] Platelet mean volume (Bld) [Entitic vol] 10.8 fL Normal 9.0-12.7 [facility] Comment on above: Order Comment: Speci men Type: BLOOD SPECIMENOrdering Facility: [facility] Address: [address] [place] [address] Performed By: #### 5 7021-8 ####[facility] LABORATORYCLIA [id number] [address] Platelets (Bld) [#/Vol] 234 10*3/uL Normal 150-400 [facility] Comment on above: Order Comment: Speci men Type: BLOOD SPECIMENOrdering Facility: [facility] Address: [address] [place], [place] [address] [address] Performed By: #### 5 7021-8 ####[facility] LABORATORYCLIA [id number] [address] [place] RBC (Bld) [#/Vol] 5.38 10*6/uL High 3.90-5.20 [facility] Comment on above: Order Comment: Speci men Type: BLOOD SPECIMENOrdering Facility: [facility] Address: [address] [place] [address] Performed By: #### 5 7021-8 ####J[facility] LABORATORYCLIA [id number] [address] [place] WBC (Bld) [#/Vol] 9.19 10*3/uL Normal 3.70-11.00 [facility] Comment on above: Order Comment: Speci men Type: BLOOD SPECIMENOrdering Facility: [facility] Address: [address] [place], [place] [address] [address] Performed By: #### 5 7021-8 ####[facility] LABORATORYCLIA [id number] [address] [place] CNOVon 10-24-2024 CNOV Office Visit ([facility] ) KENNY VALADEZ ([id number]) 1955 F Date Time Provider Department 10/24/24 1:[address] [facility] During your visit today, we recorded the following information about you: Pulse Blood pressure Weight 75/minute 123/73 83 kg Nelly Brown APRN.MANAGER NEWS 10/24/2024 2:25 PM Signed [facility] OUTPATIENT VISIT DATE October 24, 2024 OUTPATIENT VISIT TYPE ESTABLISHED PRIMARY CARE PHYSICIAN: David Wynn DO CHIEF COMPLAINT: Patient presents with: Breathing Problem HISTORY OF PRESENT ILLNESS: Kenny Valadez is a 69 year old female who presents today for a follow-up visit in the Heart Failure Clinic. The patient was last seen in office 07/24. The following changes were made at that time: decrease in spironolactone to three times a week. Patient has had 0 hospitalizations and/or emergency room encounters in the last 12 months. Today, the patient reports feeling short of breath and is if her weight is up. Feels chest discomfort when she presses on her chest. States she felt as if she was going to pass out on Wednesday. States her heart rate is normally 55-60 bpm and dropped to mid 40's. Noticed her heart rate dropped to 55 bpm over night the other night. She mentions her heart rate usually is approx 70 bpms. States she was going to go to the ER to be evaluated however, she was looking at the wait times and did not want to wait that long. Chest discomfort occurs with rest and activity. Lasts for several hours. Denies feeling palpitations. Feels this is 7/10. Takes baby aspirin at the onset of pain. Denies having stress test recently. Did not want to go to ER due to the wait time. Discussed going to ER however, patient does not wish to go at this time. States she has labs for Dr. Dodd. Takes her spironolactone intermittently throughout the week. Does not always take this three times a week. She continues to experience shoulder spasms. Thought she was dehydrated during the time she was last seen in office by the SEWER MAINTENANCE SUPERVISOR in the HF Clinic on 07/24. States she continues to experience these muscle spasms when she takes spironolactone. 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 Takes her spironolactone in the morning but also states she is up in the middle of the night due to the spironolactone. She states she is not taking Nexletol. Unsure of why she stopped taking it. Has stopped mounjaro due to GI issues and has been off of this for a couple of weeks. Has maintained weight of approx 183 lbs. Has been sugar free for the past 5 days. States she is less stressed at school than at home. Takes care of her son who has schizophrenia. IMPRESSION: NYHA Functional Class: II Stage: C heart failure Mrs. Valadez is a 69 year old female who presents for follow up for chronic systolic heart failure. She appears euvolemic on examination. No changes to medication. As she has complained of 7/10 chest discomfort during visit, advised patient to go to ER for further evaluation. The patient states she does not want to wait in the ER. She also states she cannot miss work. Discussed with patient importance of being evaluated in the ER based on symptoms. She can choose to not go however, this would be against medical advice. At last, the patient decided to be evaluated as she states she is very worried about this pain. Reviewed plan of care with patient. All questions answered at this time. PLAN AND RECOMMENDATIONS: 1. Chronic systolic congestive heart failure (HCC) - ICD9: 428.22, 428.0, ICD10: I50.22 (primary diagnosis) - Euvolemic on examination. EF-33% - Reduce Spironolactone to 12.5 mg three times weekly. - Continue Coreg - Continue Entresto - Continue Farxiga - Daily weights. Call if weight increases by 3-4 lbs in 1-4 days period of time. - 2g low sodium diet - Activity as tolerated. Rest breaks as needed. - Follow up in HF Clinic in 03/20 or sooner PRN. 2. Cardiomyopathy, ischemic - ICD9: 414.8, ICD10: I25.5 - Stable at this time. - Continue current medications at current doses. -ER visit today for CP 3. Primary hypertension - ICD9: 401.9, ICD10: I10 - Controlled - Continue current medications - Recommend home blood pressure monitoring, to bring results to next visit - Encouraged sodium restriction, DASH or Mediterranean diet - Recommend regular aerobic exercise Follow up appointment with Dr. Dodd in November 2024. PAST MEDICAL HISTORY Diagnosis Date Arthritis Asthma CERVICAL DISC DISPLACMNT 02/03/2008 Chronic systolic heart failure (HCC) Coronary artery disease Degenerative disc disease Diabetes mellitus type 2, controlled (HCC) Herniated disc HLD (hyperlipidemia) HTN (hypertension) Ischemic cardiomyopathy Migraines BELA (obstructive sleep apne (more content not included)... [facility] ([id number]) 1955 F Date Time Provider Department 10/24/24 LILIA OBREGON During your visit today, we recorded the following information about you: Sowmya Israel, MENDY 10/24/2024 3:19 PM Signed Lilia Obregon PA-C [facility]; Sowmya Israel, RN Please call patient and let her know that Dr. He recommended US of the mass on her left forearm and schedule US. I will reach out to her once we have the results. Thanks, Faby Spoke with patient and relayed message. Patient verbalized understanding. Pt is currently in ED for CP Please call her tomorrow after 130pm Gaby Lieberman 10/26/2024 3:02 PM Signed Attempted to call patient to schedule US, unable to leave message no VM set up Gaby Matamoros 10/27/2024 3:40 PM Signed Attempted to call patient to schedule US, unable to leave message no VM set up Elva Adan 10/30/2024 7:26 AM Signed 4 attempts to contact patient, closing encounter. Allergies As of Date: 10/24/2024 Noted Allergy Reaction ANIMAL DANDER 04/08/2023 9 - Itching Comments: Itchy watery eyes, sneezing IMITREX (SUMATRIPTAN) 04/07/2023 14 - Other: See Comments OZEMPIC (SEMAGLUTIDE) 06/07/2024 5 - Intolerance Comments: Constipation PROPOXYPHENE 02/23/2024 14 - Other: See Comments STEROIDS (BETAMETHASONE DIPROPION*01/31/2008 STEROIDS (CORTICOSTEROIDS (GLUCOC*10/24/2024 14 - Other: See Comments Comments: blindness Date Reviewed: 10/24/2024 Reviewed by: Eric Beasley RN - Fully Assessed Reason for Visit: Appointment [186] Cmt: Please call pt after 130 tomorrow Prescriptions as of 10/30/2024 - Diclofenac Sodium 3 % gel Apply 0.5 g to affected area two times a day. - cycloSPORINE (RESTASIS) 0.05 % ophthalmic emulsion Use 1 Drop in both eyes two times a day. - azithromycin (ZITHROMAX) 250 mg tablet TAKE 2 TABLETS BY MOUTH TODAY, THEN TAKE 1 TABLET DAILY FOR 4 DAYS DIRECTED - spironolactone (ALDACTONE) 25 mg tablet Take 0.5 tablets by mouth three times a week. - sacubitril-valsartan (ENTRESTO) 24-26 mg tablet Take 1 tablet by mouth two times a day. - nitroglycerin sublingual (NITROQUICK) 0.4 mg SL tablet Dissolve 1 tablet under the tongue every 5 minutes as needed for chest pain. - bempedoic acid (NEXLETOL) 180 mg tablet Take 1 tablet (180 mg) by mouth once daily. - TRESIBA FLEXTOUCH U-200 200 unit/mL (3 mL) injection Inject subcutaneously 70 units daily - dapagliflozin propanediol (FARXIGA) 10 mg tablet Take 1 tablet by mouth daily with breakfast. - clopidogrel (PLAVIX) 75 mg tablet Take 1 tablet by mouth once daily. - blood sugar diagnostic (The [employer] Life GuidesTOUCH ULTRA TEST) test strip Use as instructed to test blood sugar 3 times daily. DX: E11.42, insulin dependent. - diphenhydrAMINE (BENADRYL ALLERGY) 12.5 mg/5 mL liquid - NOVOLOG FLEXPEN U-100 INSULIN 100 unit/mL (3 mL) INJECT SUBCUTANEOUSLY BREAKFAST 20 UNITS, LUNCH 20 UNITS , DINNER 20 UNITS PLUS SCALE UP TO 70 UNITS DAILY - carvedilol (COREG) 3.125 mg tablet take 1 tablet by mouth twice a day with food - insulin needles, DISPOSABLE, (BD INSULIN PEN NEEDLE UF) 31 gauge x 5/16 Use 4 pen needles daily - Multivitamin capsule Take 1 capsule by mouth once daily. - aspirin, enteric coated (ASPIRIN, ENTERIC COATED) 81 mg EC tablet Take 1 tablet by mouth once daily. Problem List As Of Date 10/24/2024 Noted Resolved CERVICAL DISC DISPLACMNT [M50.20] 02/03/2008 Chronic sinusitis [J32.9] 06/09/2012 Albuminuria [R80.9] 02/19/2021 Recurrent UTI [N39.0] 02/19/2021 Dysuria [R30.0] 02/19/2021 Essential hypertension [I10] 02/19/2021 Type 2 diabetes mellitus with diabetic polyneur*03/07/2021 Mixed hyperlipidemia [E78.2] 03/07/2021 Nontoxic single thyroid nodule [E04.1] 12/04/2022 NSTEMI (non-ST elevated myocardial infarction) *04/08/2023 04/13/2023 Primary hypertension [I10] 04/08/2023 Acute systolic CHF (congestive heart failure) (*04/13/2023 Dyslipidemia [E78.5] 04/13/2023 Pericardial effusion [I31.39] 04/13/2023 Coronary artery disease of chitina artery of jf*05/03/2023 Chronic systolic congestive heart failure (HCC)*05/03/2023 Cardiomyopathy, ischemic [I25.5] 05/03/2023 Hypoglycemia due to type 2 diabetes mellitus (H*08/10/2023 Statin intolerance [Z78.9] 10/18/2023 Type 2 diabetes mellitus with diabetic microalb*06/07/2024 Obesity, Class I, BMI 30-34.9 [E66.811] 06/07/2024 Encounter Status:Closed by SOWMYA ISRAEL on 10/25/24 Normal [facility] Comprehensive metabolic 2000 panelon 10-24-2024 Albumin [Mass/Vol] 4.3 g/dL Normal 3.9-4.9 [facility] Comment on above: Order Comment: Speci men Type: BLOOD SPECIMEN Ordering Facility: [facility] Address: [address] [place] [address] Performed By: #### L [id number], 97521-6, 75372-7, 0-3 #### [facility] CLIA [id number] [address] [place] [address] [place] ALP [Catalytic activity/Vol] 64 U/L Normal 34-123 [facility] Comment on above: Order Comment: Speci men Type: BLOOD SPECIMEN Ordering Facility: [facility] Address: [address] [place] [address] Performed By: #### L [id number], 18986-6, 98946-7, 0-3 #### [facility] CLIA [id number] [address] [place] [address] [place] ALT [Catalytic activity/Vol] 10 U/L Normal 7-38 [facility] Comment on above: Order Comment: Speci men Type: BLOOD SPECIMEN Ordering Facility: [facility] Address: [address] [place] [address] Performed By: #### L [id number], 78377-7, 94433-1, 0-3 #### [facility] CLIA [id number] [address] [place] [address] [place] Anion gap [Moles/Vol] 16 mmol/L High 8-15 [facility] Comment on above: Order Comment: Speci men Type: BLOOD SPECIMEN Ordering Facility: [facility] Address: [address] [place] [address] Performed By: #### L [id number], 36899-1, 90576-8, 0-3 #### [facility] CLIA [id number] [address] [place] [address] [place] AST [Catalytic activity/Vol] 17 U/L Normal 13-35 [facility] Comment on above: Order Comment: Speci men Type: BLOOD SPECIMEN Ordering Facility: [facility] Address: [address] [place] [address] Performed By: #### L [id number], 05866-8, 24933-7, 0-3 #### [facility] CLIA [id number] [address] [place] [address] [place] Bilirubin [Mass/Vol] 0.6 mg/dL Normal 0.2-1.3 [facility] Comment on above: Order Comment: Speci men Type: BLOOD SPECIMEN Ordering Facility: [facility] Address: [address] [place] [address] Performed By: #### L [id number], 37146-1, 86679-3, 3040-3 #### [facility] CLIA [id number] [address] [place] [address] [place] Calcium [Mass/Vol] 9.7 mg/dL Normal 8.5-10.2 [facility] Comment on above: Order Comment: Speci men Type: BLOOD SPECIMEN Ordering Facility: [facility] Address: [address] [place] [address] Performed By: #### L [id number], 81130-2, 30435-5, 3040-3 #### [facility] CLIA [id number] [address] [place] [address] [place] Chloride [Moles/Vol] 100 mmol/L Normal 98-107 [facility] Comment on above: Order Comment: Speci men Type: BLOOD SPECIMEN Ordering Facility: [facility] Address: [address] [place] [address] Performed By: #### L [id number], 51585-3, 73688-3, 3040-3 #### [facility] CLIA [id number] [address] [place] [address] [place] CO2 [Moles/Vol] 21 mmol/L Low 22-30 [facility] Comment on above: Order Comment: Speci men Type: BLOOD SPECIMEN Ordering Facility: [facility] Address: [address] [place] [address] Performed By: #### L [id number], 13635-8, 36328-5, 3040-3 #### [facility] CLIA [id number] [address] [place] [address] [place] Creatinine [Mass/Vol] 0.91 mg/dL Normal 0.58-0.96 [facility] Comment on above: Order Comment: Speci men Type: BLOOD SPECIMEN Ordering Facility: [facility] Address: [address] [place] [address] Performed By: #### L [id number], 72564-5, 86125-5, 3040-3 #### [facility] CLIA [id number] [address] Creatinine and Glomerular filtration rate.predicted panel (S/P/Bld) 68 mL/min/1.73m??? Normal >=60 [facility] Comment on above: Order Comment: Hai das Type: BLOOD SPECIMEN Ordering Facility: [facility] Address: [address] [place] [address] Result Comment: Carmen mated Glomerular Filtration Rate (eGFR) is calculated using the 2020 CKD-EPI creatinine equation. This equation utilizes serum creatinine, sex, and age as parameters. The creatinine assay has traceable calibration to isotope dilution-mass spectrometry. Refer to KDIGO guidelines for clinical interpretation. In patients with unstable renal function, e.g. those with acute kidney injury, the eGFR may not accurately reflect actual GFR. Performed By: #### L [id number], 89701-4, , 3039-3 #### [facility] CLIA [id number] [address] Glucose [Mass/Vol] 104 mg/dL High 74-99 [facility] Comment on above: Order Comment: Hai das Type: BLOOD SPECIMEN Ordering Facility: [facility] Address: [address] [place] [address] Result Comment: The [place] Diabetes Association (ADA) provides guidance for cutoff values for fasting glucose and random glucose. The ADA defines fasting as no caloric intake for at least 8 hours. Fasting plasma glucose results between 100 to 125 mg/dL indicate increased risk for diabetes (prediabetes). Fasting plasma glucose results greater than or equal to 126 mg/dL meet the criteria for diagnosis of diabetes. In the absence of unequivocal hyperglycemia, results should be confirmed by repeat testing. In a patient with classic symptoms of hyperglycemia or hyperglycemic crisis, random plasma glucose results greater than or equal to 200 mg/dL meet the criteria for diagnosis of diabetes. Reference: Standards of Medical Care in Diabetes 2016, [place] Diabetes Association. Diabetes Care. 2016.39(Suppl 1). Performed By: #### L [id number], 31930-5, 63166-4, 0-3 #### [facility] CLIA [id number] [address] [place] Potassium [Moles/Vol] 4.2 mmol/L Normal 3.7-5.1 [facility] Comment on above: Order Comment: Speci men Type: BLOOD SPECIMEN Ordering Facility: [facility] Address: [address] [place] [address] Performed By: #### L [id number], 66440-6, 67163-6, 3040-3 #### [facility] CLIA [id number] [address] [place] [address] [place] Protein [Mass/Vol] 7.6 g/dL Normal 6.3-8.0 [facility] Comment on above: Order Comment: Speci men Type: BLOOD SPECIMEN Ordering Facility: [facility] Address: [address] [place] [address] Performed By: #### L [id number], 61274-8, 32670-4, 3040-3 #### [facility] CLIA [id number] [address] STATES [facility] Sodium [Moles/Vol] 137 mmol/L Normal 136-144 [facility] Comment on above: Order Comment: Speci men Type: BLOOD SPECIMEN Ordering Facility: [facility] Address: [address] [place] [address] Performed By: #### L [id number], 69916-6, 05389-7, 3040-3 #### [facility] CLIA [id number] [address] [place] Urea nitrogen [Mass/Vol] 20 mg/dL Normal 7-21 [facility] Comment on above: Order Comment: Speci men Type: BLOOD SPECIMEN Ordering Facility: [facility] Address: [address] [place] [address] Performed By: #### L [id number], 73670-6, 71450-7, 3040-3 #### [facility] CLIA [id number] [address] [place] D dimer FEU PPP-mCncon 10-24 Fibrin D-dimer FEU (PPP) [Mass/Vol] 630 ng/mL FEU High <500 [facility] Comment on above: Order Comment: Speci men Type: BLOOD SPECIMENOrdering Facility: [facility] Address: [address] [id number] Performed By: #### 4 8065-7 ####[facility] [id number] [place] [address] [place] ED NOTEon 10-24-2024 ED NOTE HNO ID: [id number] Author: JUAN J BEYER RN Service: ? Author Type: Registered Nurse Type: ED Notes Filed: 10/24/2024 16:51 Note Text: Discharge instructions d/w pt at bedside. Stated understanding with no further questions for this nurse. Encouraged f/u with PCP and referring doctors given. Stated understanding. Normal [facility] ED PROV NOTEon 10-24-2024 ED PROV NOTE HNO ID: [id number] Author: TRACIE BERGER DO Service: Emergency Medicine Author Type: Physician Type: ED Provider Notes Filed: 10/24/2024 17:32 Note Text: ED Provider Note Patient Name: Kenny Valadez : 1955 SERVICE DATE: 10/24/24 History Patient presents with: Chest Pain: Pt presents to ER from home for CC CP that has been intermittent for the last few weeks. Hx IL March 2023. 69-year-old female with a history of an IL, hypertension, hyperlipidemia, ischemic cardiomyopathy, diabetes presenting to the ER today for right-sided chest pain for a few weeks. Intermittently worse and improves with lying down. States she came in today because it became more persistent and stronger pain. She denies any shortness of breath or cough. Denies any abdominal symptoms. Did not try anything other than a baby aspirin at home. Was seen by cardiology today and then ultimately walked over here as they were concerned about her symptoms. PAST MEDICAL HISTORY Diagnosis Date Arthritis Asthma CERVICAL DISC DISPLACMNT 02/03/2008 Chronic systolic heart failure (HCC) Coronary artery disease Degenerative disc disease Diabetes mellitus type 2, controlled (HCC) Herniated disc HLD (hyperlipidemia) HTN (hypertension) Ischemic cardiomyopathy Migraines BELA (obstructive sleep apnea) Pericardial effusion 04/13/2023 Thyroid nodule Unspecified essential hypertension Essential hypertension PAST SURGICAL HISTORY Procedure Laterality Date ADENOIDECTOMY PRIMARY Adenoidectomy APPENDECTOMY W/ exploratory lap BACK SURGERY HX CHOLECYSTECTOMY REMV CATARACT EXTRACAP,INSERT LENS Bilateral 09/2023 TONSILLECTOMY PRIMARY/SECONDARY Tonsillectomy VAGINAL HYSTERECTOMY UTERUS 250 GM/< Hysterectomy, vaginal FAMILY HISTORY Problem Relation Age of Onset Heart Mother Allergies Mother Arthritis Mother Asthma Mother Genitourinary () Mother bladder suspension in her 50's Hearing Loss Mother Hypertension Mother Lipids Mother Osteoporosis Mother Heart Father Cancer Father sarcoma Diabetes Father Hearing Loss Father Hypertension Father Lipids Father Stroke Father TIA'S Heart Maternal Grandmother Heart Maternal Grandfather Heart Paternal Grandmother Diabetes Paternal Grandmother other (Goiter) Paternal Grandmother Heart Paternal Grandfather Cancer Paternal Aunt I lost 11 aunts and uncles Cancer Paternal Uncle I lost 11 aunts and uncles Diabetes Paternal Aunt Diabetes Maternal Uncle Headache Daughter migraines Social History Tobacco Use Smoking status: Never Smokeless tobacco: Never Tobacco comments: Secondhand smoke exposure x 30 years (Father and 1st ) Substance and Sexual Activity Alcohol use: Yes Comment: rare Drug use: No Sexual activity: Not on file ALLERGIES Allergen Reactions Animal Dander Itching Itchy watery eyes, sneezing Imitrex [Sumatripta* Other: See Comments Ozempic [Semaglutid* Intolerance Constipation Propoxyphene Other: See Comments Steroids [Betametha* Steroids [Corticost* Other: See Comments blindness Review of Systems Constitutional: Negative for fever. Respiratory: Negative for cough and shortness of breath. Cardiovascular: Positive for chest pain. Negative for palpitations and leg swelling. Allergic/Immunologic: Negative for immunocompromised state. All other systems reviewed and are negative. Physical Exam Vitals [10/24/24 1415] BP Pulse Temp Temp src Resp SpO2 Weight Height 132/76 70 36.7 ?C (98 ?F) Oral 16 97 % 83 kg (182 lb 15.7 oz) -- Physical Exam Vitals and nursing note reviewed. Constitutional: General: She is not in acute distress. Appearance: She is well-developed. She is not ill-appearing. HENT: Head: Normocephalic and atraumatic. Eyes: Conjunctiva/sclera: Conjunctivae normal. Cardiovascular: Rate and Rhythm: Normal rate and regular rhythm. Pulses: Carotid pulses are 2+ on the right side and 2+ on the left side. Radial pulses are 2+ on the right side and 2+ on the left side. Dorsalis pedis pulses are 2+ on the right side and 2+ on the left side. Posterior tibial pulses are 2+ on the right side and 2+ on the left side. Heart sounds: Normal heart sounds. Pulmonary: Effort: Pulmonary effort is normal. No respiratory distress. Breath sounds: Normal breath sounds. No decreased breath sounds, wheezing, rhonchi or rales. Abdominal: General: There is no distension. Musculoskeletal: General: Normal range of motion. Cervical back: Normal range of motion. Right lower leg: No tenderness. No edema. Left lower leg: No tenderness. No edema. Skin: General: Skin is warm and dry. Capillary Refill: Capillary refill takes less than 2 seconds. Findings: No rash. Neurological: Mental Status: She is alert and oriented to person, place, and time. Psychiatric: Behavior: Behavior normal. Diagnostic Testing ED La (more content not included)... [facility] EKGon 10-24-2024 Electrocardiogram Ventricular Rate : 6 6 BPM Atrial Rate : 66 BPM P-R Interval : 164 ms QRS Duration : 82 ms Q-T Interval : 398 ms QTC Calculation(Bazett) : 417 ms Calculated P [place] : 38 degrees Calculated R [place] : -75 degrees Calculated T [place] : 103 degrees NORMAL SINUS RHYTHM LEFT AXIS DEVIATION LOW VOLTAGE QRS INFERIOR INFARCT , AGE UNDETERMINED ANTEROLATERAL INFARCT , AGE UNDETERMINED ABNORMAL ECG NO STEMI Confirmed by TRACIE BERGER DO ([id number]), editorial specialist SANDIP LOUISE ([id number]) on 10/25/2024 8:13:53 AM NAME : KENNY VALADEZ PID : [id number] : 1955 Gender : Female Race : ORD : Procedure Date : Oct 24 2024 14:21:06 Edit Date : Oct 25 2024 08:13:56 Diagnosis: NORMAL SINUS RHYTHM LEFT AXIS DEVIATION LOW VOLTAGE QRS INFERIOR INFARCT , AGE UNDETERMINED ANTEROLATERAL INFARCT , AGE UNDETERMINED ABNORMAL ECG NO STEMI Confirmed by TRACIE BERGER DO ([id number]), editorial specialist SANDIP LOUISE ([id number]) on 10/25/2024 8:13:53 AM Test Reason : Location : 1 : ER ED Overread By : TRACIE BERGER DO Edited By : SANDIP LOUISE Referred By : , Acquired by : , [facility] Fibrin D-dimer FEU (PPP) [Renate ss/Vol]on 10-24-2024 D DIMER AGE-RELATED CUTOFF 690 ng/mL FEU Normal [facility] Comment on above: Order Comment: Speci men Type: BLOOD SPECIMENOrdering Facility: [facility] Address: [address] [place] [address] Performed By: #### 4 8065-7 ####[facility] [id number] [address] HIGH SENSITIVITY TROPONIN T (INITIAL)on 10-24-2024 Troponin T.cardiac High sensitivity method [Mass/Vol] 8 ng/L Normal <12 [facility] Comment on above: Order Comment: Speci men Type: BLOOD SPECIMEN Ordering Facility: [facility] Address: [address] [place] [address] Performed By: #### L [id number], 47745-5, 58717-3, 3040-3 #### [facility] CLIA [id number] [address] HIGH SENSITIVITY TROPONIN T (SECOND)on 10-24-2024 Troponin T.cardiac High sensitivity method [Mass/Vol] 8 ng/L Normal <12 [facility] Comment on above: Order Comment: Speci men Type: BLOOD SPECIMENOrdering Facility: [facility] Address: [address] [place] [address] Performed By: #### L [id number] ####[facility] [id number] [place] [address] [place] Lipase SerPl-cCncon 10-24-20 24 Lipase [Catalytic activity/Vol] 12 U/L Low 16-61 [facility] Comment on above: Order Comment: Speci men Type: BLOOD SPECIMEN Ordering Facility: [facility] Address: [address] [place] [address] Performed By: #### L [id number], 69894-5, 44451-6, 3040-3 #### [facility] CLIA [id number] [address] [place] [address] [place] Magnesium SerPl-mCncon 10-24 Magnesium [Mass/Vol] 2.1 mg/dL Normal 1.7-2.3 [facility] Comment on above: Order Comment: Speci men Type: BLOOD SPECIMEN Ordering Facility: [facility] Address: [facility] [place] [address] Performed By: #### L [id number], 09865-8, 68224-9, 3040-3 #### [facility] CLIA [id number] [address] [place] [address] [place] XR CHEST 1V FRONTAL PORTon 1 12-25-2023 XR CHEST 1V FRONTAL PORT * * *Final Report* * * DATE OF EXAM: Oct 24 2024 2:59PM MDX [id number] - XR CHEST 1V FRONTAL PORT / PROCEDURE REASON: Other * * * * Physician Interpretation * * * * EXAMINATION: CHEST RADIOGRAPH (PORTABLE SINGLE VIEW AP) Exam Date/Time: 10/24/2024 2:59 PM CLINICAL HISTORY: Other, right upper chest pain MQ: XCPR_5 Comparison: None RESULT: Lines, tubes, and devices: None. Lungs and pleura: No infiltrate. No evidence of pulmonary vascular redistribution or pleural effusion. No pneumothorax. Cardiomediastinal silhouette: Stable cardiomediastinal silhouette. Other: . IMPRESSION: No active disease. Casting Machine Set Up Operator: PSCB Transcribe Date/Time: Oct 24 2024 3:02P Dictated by : STEVIE PATTERSON MD This examination was interpreted and the report reviewed and electronically signed by: STEVIE PATTERSON MD on Oct 24 2024 3:03PM EST [id number] Normal [facility] CNOVon 10-23-2024 CNOV Office Visit (ORMDNA ) KENNY VALADEZ ([id number]) 1955 F Date Time Provider Department 10/23/24 3:00 PM LILIA OBREGON During your visit today, we recorded the following information about you: Lilia Obregon PA-C 10/24/2024 2:51 PM Addendum Lilia Obregon PA-C Department of Orthopaedics Orthopaedics [address] [id number] Dept: [phone] October 23, 2024 SUBJECTIVE: CHIEF COMPLAINT: New and Pain of the Right Shoulder HPI: Ms. Kenny Valadez is a 69 year old RHD female. She presents today with right shoulder pain has been present for the past 15 years. Today she rates her pain an 3 on a scale of 0-10 at rest. The pain is worse with any activity and increases to an 8 out of 10 at its worst. Describes the pain as intermittent and sharp. She is not currently take any medication for it as she is unable to take Tylenol due to liver issues or NSAIDs as she is on Plavix. She notes that approximately 15 years ago she was told that she has a rotator cuff injury but states that she was told she was not a surgical candidate due to multiple herniated disks in her neck. She denies any new numbness/tingling, weakness or previous shoulder surgeries. She also has a mass on her left forearm that has been present since 1970s that has been increasing in size. She is interested in getting this removed. Past Medical History: PAST MEDICAL HISTORY Diagnosis Date Arthritis Asthma CERVICAL DISC DISPLACMNT 02/03/2008 Chronic systolic heart failure (HCC) Coronary artery disease Degenerative disc disease Diabetes mellitus type 2, controlled (HCC) Herniated disc HLD (hyperlipidemia) HTN (hypertension) Ischemic cardiomyopathy Migraines BELA (obstructive sleep apnea) Pericardial effusion 04/13/2023 Thyroid nodule Unspecified essential hypertension Essential hypertension Past Surgical History: PAST SURGICAL HISTORY Procedure Laterality Date ADENOIDECTOMY PRIMARY Adenoidectomy APPENDECTOMY W/ exploratory lap BACK SURGERY HX CHOLECYSTECTOMY REMV CATARACT EXTRACAP,INSERT LENS Bilateral 09/2023 TONSILLECTOMY PRIMARY/SECONDARY Tonsillectomy VAGINAL HYSTERECTOMY UTERUS 250 GM/< Hysterectomy, vaginal Family History: FAMILY HISTORY Problem Relation Age of Onset Heart Mother Allergies Mother Arthritis Mother Asthma Mother Genitourinary () Mother bladder suspension in her 50's Hearing Loss Mother Hypertension Mother Lipids Mother Osteoporosis Mother Heart Father Cancer Father sarcoma Diabetes Father Hearing Loss Father Hypertension Father Lipids Father Stroke Father TIA'S Heart Maternal Grandmother Heart Maternal Grandfather Heart Paternal Grandmother Diabetes Paternal Grandmother other (Goiter) Paternal Grandmother Heart Paternal Grandfather Cancer Paternal Aunt I lost 11 aunts and uncles Cancer Paternal Uncle I lost 11 aunts and uncles Diabetes Paternal Aunt Diabetes Maternal Uncle Headache Daughter migraines Social History: Social History Tobacco Use Smoking status: Never Smokeless tobacco: Never Tobacco comments: Secondhand smoke exposure x 30 years (Father and 1st ) Substance Use Topics Alcohol use: Yes Comment: rare Drug use: No Medications: Current Outpatient Medications Medication Sig cycloSPORINE (RESTASIS) 0.05 % ophthalmic emulsion Use 1 Drop in both eyes two times a day. spironolactone (ALDACTONE) 25 mg tablet Take 0.5 tablets by mouth three times a week. sacubitril-valsartan (ENTRESTO) 24-26 mg tablet Take 1 tablet by mouth two times a day. nitroglycerin sublingual (NITROQUICK) 0.4 mg SL tablet Dissolve 1 tablet under the tongue every 5 minutes as needed for chest pain. bempedoic acid (NEXLETOL) 180 mg tablet Take 1 tablet (180 mg) by mouth once daily. TRESIBA FLEXTOUCH U-200 200 unit/mL (3 mL) injection Inject subcutaneously 70 units daily dapagliflozin propanediol (FARXIGA) 10 mg tablet Take 1 tablet by mouth daily with breakfast. clopidogrel (PLAVIX) 75 mg tablet Take 1 tablet by mouth once daily. blood sugar diagnostic (The Green Life GuidesTOUCH ULTRA TEST) test strip Use as instructed to test blood sugar 3 times daily. DX: E11.42, insulin dependent. diphenhydrAMINE (BENADRYL ALLERGY) 12.5 mg/5 mL liquid NOVOLOG FLEXPEN U-100 INSULIN 100 unit/mL (3 mL) INJECT SUBCUTANEOUSLY BREAKFAST 20 UNITS, LUNCH 20 UNITS , DINNER 20 UNITS PLUS SCALE UP TO 70 UNITS DAILY carvedilol (COREG) 3.125 mg tablet take 1 tablet by mouth twice a day with food insulin needles, DISPOSABLE, (BD INSULIN PEN NEEDLE UF) 31 gauge x 5/16 Use 4 pen needles daily Multivitamin capsule Take 1 capsule by mouth once daily. aspirin, enteric coated (ASPIRIN, ENTERIC COATED) 81 mg EC tablet Take 1 tablet by mouth once daily. Diclofenac Sodium 3 % gel Apply 0.5 g to aff (more content not included)... Normal [facility] XR SHLDR >/=3V AP/DHAVAL AP/OTH R RTon 10-23-2024 XR SHLDR >/=3V AP/DHAVAL AP/OTHR RT * * *Final Report* * * DATE OF EXAM: Oct 23 2024 2:41PM GONZALEZ 5253 - XR SHLDR >/=3V AP/DHAVAL AP/OTHR RT / PROCEDURE REASON: [id number] * * * * Physician Interpretation * * * * PROCEDURE: Right shoulder INDICATION: Pain .right shoulder pain TECHNIQUE: XR SHLDR >/=3V AP/DHAVAL AP/OTHR RT COMPARISON: None FINDINGS: Mild glenohumeral and acromioclavicular joint osteoarthrosis with marginal spurring. Acromiohumeral interval is maintained. No fracture or dislocation. Degenerative change in the imaged cervical spine. IMPRESSION: Degenerative changes Casting Machine Set Up Operator: MAJO Transcribe Date/Time: Oct 23 2024 4:35P Dictated by : FABIANA HIGUERA MD This examination was interpreted and the report reviewed and electronically signed by: FABIANA HIGUERA MD on Oct 23 2024 4:36PM EST [id number] Normal [facility] XR Shoulder - right 3 Viewso n 10-23-2024 IMPRESSION: Degenerative changes Casting Machine Set Up Operator: PSCB Transcribe Date/Time: Oct 23 2024 4:35P Dictated by : FABIANA HIGUERA MD This examination was interpreted and the report reviewed and electronically signed by: FABIANA HIGUERA MD on Oct 23 2024 4:36PM EST [facility] * * *Final Report* * * DATE OF EXAM: Oct 23 2024 2:41PM GONZALEZ 5253 - XR SHLDR >/=3V AP/DHAVAL AP/OTHR RT / PROCEDURE REASON: [id number] * * * * Physician Interpretation * * * * PROCEDURE: Right shoulder INDICATION: Pain .right shoulder pain TECHNIQUE: XR SHLDR >/=3V AP/DHAVAL AP/OTHR RT COMPARISON: None FINDINGS: Mild glenohumeral and acromioclavicular joint osteoarthrosis with marginal spurring. Acromiohumeral interval is maintained. No fracture or dislocation. Degenerative change in the imaged cervical spine. [facility] Provider, Toy Lott - 10/23/2024 * * *Final Report* * * DATE OF EXAM: Oct 23 2024 2:41PM GONZALEZ 5253 - XR SHLDR >/=3V AP/DHAVAL AP/OTHR RT / PROCEDURE REASON: [id number] * * * * Physician Interpretation * * * * PROCEDURE: Right shoulder INDICATION: Pain .right shoulder pain TECHNIQUE: XR SHLDR >/=3V AP/DHAVAL AP/OTHR RT COMPARISON: None FINDINGS: Mild glenohumeral and acromioclavicular joint osteoarthrosis with marginal spurring. Acromiohumeral interval is maintained. No fracture or dislocation. Degenerative change in the imaged cervical spine. IMPRESSION IMPRESSION: Degenerative changes Casting Machine Set Up Operator: MAJO Transcribe Date/Time: Oct 23 2024 4:35P Dictated by : FABIANA HIGUERA MD This examination was interpreted and the report reviewed and electronically signed by: FABIANA HIGUERA MD on Oct 23 2024 4:36PM [facility] Radiology Study observation (narrative) [facility] XR Shoulder - right 3 ViewsO rdered By: Ccf Provider on 10-23-2024 [facility] CNPJyoti 10-17-2024 CNPN Telephone (ORMDNA) KENNY VALADEZ ([id number]) 1955 F Date Time Provider Department 10/17/24 LILIA OBREGON During your visit today, we recorded the following information about you: Kathy Pearce LPN 10/17/2024 1:54 PM Addendum Attempted to reach patient voicemail box full. She is currently scheduled twice with ZULEMA Joseph on Wednesday10/23/2024 for two separate complaints. Will send [employer] message. Allergies As of Date: 10/17/2024 Noted Allergy Reaction ANIMAL DANDER 04/08/2023 9 - Itching Comments: Itchy watery eyes, sneezing IMITREX (SUMATRIPTAN) 04/07/2023 14 - Other: See Comments OZEMPIC (SEMAGLUTIDE) 06/07/2024 5 - Intolerance Comments: Constipation PROPOXYPHENE 02/23/2024 14 - Other: See Comments STEROIDS (BETAMETHASONE DIPROPION*01/31/2008 Date Reviewed: 09/07/2024 Reviewed by: Mary Kate Barber APRN.MANAGER NEWS - Fully Assessed Reason for Visit: Appointment Conflict [Other] Prescriptions as of 10/20/2024 - cycloSPORINE (RESTASIS) 0.05 % ophthalmic emulsion Use 1 Drop in both eyes two times a day. - tirzepatide (MOUNJARO) 2.5 mg/0.5 mL pen injector Inject 2.5 mg subcutaneously one time a week. X 4 wks then increase to 5 mg weekly. - tirzepatide (MOUNJARO) 5 mg/0.5 mL pen injector Inject 5 mg subcutaneously one time a week. Patient should start on October 02, 2024. - azithromycin (ZITHROMAX) 250 mg tablet TAKE 2 TABLETS BY MOUTH TODAY, THEN TAKE 1 TABLET DAILY FOR 4 DAYS DIRECTED - spironolactone (ALDACTONE) 25 mg tablet Take 0.5 tablets by mouth three times a week. - sacubitril-valsartan (ENTRESTO) 24-26 mg tablet Take 1 tablet by mouth two times a day. - nitroglycerin sublingual (NITROQUICK) 0.4 mg SL tablet Dissolve 1 tablet under the tongue every 5 minutes as needed for chest pain. - bempedoic acid (NEXLETOL) 180 mg tablet Take 1 tablet (180 mg) by mouth once daily. - TRESIBA FLEXTOUCH U-200 200 unit/mL (3 mL) injection Inject subcutaneously 70 units daily - dapagliflozin propanediol (FARXIGA) 10 mg tablet Take 1 tablet by mouth daily with breakfast. - clopidogrel (PLAVIX) 75 mg tablet Take 1 tablet by mouth once daily. - blood sugar diagnostic ([employer] GuidesTOUCH ULTRA TEST) test strip Use as instructed to test blood sugar 3 times daily. DX: E11.42, insulin dependent. - diphenhydrAMINE (BENADRYL ALLERGY) 12.5 mg/5 mL liquid - NOVOLOG FLEXPEN U-100 INSULIN 100 unit/mL (3 mL) INJECT SUBCUTANEOUSLY BREAKFAST 20 UNITS, LUNCH 20 UNITS , DINNER 20 UNITS PLUS SCALE UP TO 70 UNITS DAILY - carvedilol (COREG) 3.125 mg tablet take 1 tablet by mouth twice a day with food - insulin needles, DISPOSABLE, (BD INSULIN PEN NEEDLE UF) 31 gauge x 5/16 Use 4 pen needles daily - Multivitamin capsule Take 1 capsule by mouth once daily. - aspirin, enteric coated (ASPIRIN, ENTERIC COATED) 81 mg EC tablet Take 1 tablet by mouth once daily. 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] 12/04/2022 NSTEMI (non-ST elevated myocardial infarction) *04/08/2023 04/13/2023 Primary hypertension [I10] 04/08/2023 Acute systolic CHF (congestive heart failure) (*04/13/2023 Dyslipidemia [E78.5] 04/13/2023 Pericardial effusion [I31.39] 04/13/2023 Coronary artery disease of chitina artery of jf*05/03/2023 Chronic systolic congestive heart failure (HCC)*05/03/2023 Cardiomyopathy, ischemic [I25.5] 05/03/2023 Hypoglycemia due to type 2 diabetes mellitus (H*08/10/2023 Statin intolerance [Z78.9] 10/18/2023 Type 2 diabetes mellitus with diabetic microalb*06/07/2024 Obesity, Class I, BMI 30-34.9 [E66.811] 06/07/2024 Encounter Status:Closed by KATHY PEARCE on 10/17/24 Normal [facility] No Panel Informationon 09-18 Culture Urine 10,000 - 50,000 cfu/ ml Mixed growth consistent with normal urogenital neeraj. [facility] CNOVon 09-07-2024 CNOV Office Visit (ENDMED ) KENNY VALADEZ ([id number]) 1955 F Date Time Provider Department 09/07/24 3:45 PM MARY KATE BARBER During your visit today, we recorded the following information about you: Pulse Blood pressure Weight Height 89/minute 119/80 88.5 kg 1.651 m Mary Kate Barber APRN.MANAGER NEWS 09/07/2024 4:18 PM Signed Reason for Consultation: DM Type 2 Referring Physician: Luli Perdomo MD [address] [facility] [address] HISTORY OF PRESENT ILLNESS; Ms. Valadez is a 69 year old female presenting for follow up regarding DM Type 2. She was initially diagnosed with diabetes approx. 2000. She has been on insulin since at least age 55. 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 She eventually began Mounjaro then became ill with bronchitis and stopped it. She just recently resumed the 2.5 mg dose. Feels appetite is out of control. Been eating a lot of bagels. She is under the care of nephrology, Dr. Perdomo and cardiology Dr. Dodd. Rashel was cost prohibitive. At the last visit she wanted to try Ozempic which she did and resulted in severe constipation at the dose of 0.5 mg weekly and she discontinued it. She would like to try Mounjaro instead. Her current diabetes regimen is: Tresiba (u200 pen) 70 units daily at noon Farxiga 10 mg daily Mounjaro 2.5 mg weekly Novolog 20 units TID meals plus SS If Blood Glucose (mg/dL) is < 150 Give 0 units 151-200 Give 1 unit 201-250 Give 2 units 251-300 Give 3 units 301-350 Give 4 units >351 Give 5 units Previous DM medications: Glyburide actos janumet Glucotrol Metformin--stomach upset. Levemir--ineffective Trulicity --stomach issues. Ozempic--severe constipation Regarding symptoms of hyperglycemia, she is not experiencing polyuria and polydipsia. Exercise:GURDEEP'ambika Cox is checking her blood glucose 4 times per day She did bring a logbook today for review: Fastin's tresiba and novolog 10:30 AM 220 today; may take extra 5 units novolog if over 200 1:30: lunch time; 200's acS (5-7:30 dinner) novolog 20 units but may forget or not eat HS Hypoglycemia frequency: occasionally Hypoglycemia awareness: Yes Overall, the patient has no acute complaints at this time. HTN: Intolerant to KALIE ARB--Entresto HLD: Not currently on a statin. PAST MEDICAL HISTORY Diagnosis Date Arthritis Asthma CERVICAL DISC DISPLACMNT 02/03/2008 Chronic systolic heart failure (HCC) Coronary artery disease Degenerative disc disease Diabetes mellitus type 2, controlled (HCC) Herniated disc HLD (hyperlipidemia) HTN (hypertension) Ischemic cardiomyopathy Migraines BELA (obstructive sleep apnea) Pericardial effusion 04/13/2023 Thyroid nodule Unspecified essential hypertension Essential hypertension PAST SURGICAL HISTORY Procedure Laterality Date ADENOIDECTOMY PRIMARY Adenoidectomy APPENDECTOMY W/ exploratory lap BACK SURGERY HX CHOLECYSTECTOMY REMV CATARACT EXTRACAP,INSERT LENS Bilateral 09/2023 TONSILLECTOMY PRIMARY/SECONDARY Tonsillectomy VAGINAL HYSTERECTOMY UTERUS 250 GM/< Hysterectomy, vaginal FAMILY HISTORY Problem Relation Age of Onset Heart Mother Allergies Mother Arthritis Mother Asthma Mother Genitourinary () Mother bladder suspension in her 50's Hearing Loss Mother Hypertension Mother Lipids Mother Osteoporosis Mother Heart Father Cancer Father sarcoma Diabetes Father Hearing Loss Father Hypertension Father Lipids Father Stroke Father TIA'S Heart Maternal Grandmother Heart Maternal Grandfather Heart Paternal Grandmother Diabetes Paternal Grandmother other (Goiter) Paternal Grandmother Heart Paternal Grandfather Cancer Paternal Aunt I lost 11 aunts and uncles Cancer Paternal Uncle I lost 11 aunts and uncles Diabetes Paternal Aunt Diabetes Maternal Uncle Headache Daughter migraines Social History Tobacco Use Smoking status: Never Smokeless tobacco: Never Tobacco comments: Secondhand smoke exposure x 30 years (Father and 1st ) Substance Use Topics Alcohol use: Yes Comment: rare Drug use: No Current Outpatient Medications Medication Sig Dispense Refill azithromycin (ZITHROMAX) 250 mg tablet TAKE 2 TABLETS BY MOUTH TODAY, THEN TAKE 1 TABLET DAILY FOR 4 DAYS DIRECTED spironolactone (ALDACTONE) 25 mg tablet Take 0.5 tablets by mouth three times a week. RESTASIS 0.05 % ophthalmic emulsion USE 1 DROP IN BOTH EYES TWO TIMES A DAY. 180 Each 0 sacubitril-valsartan (ENTRESTO) 24-26 mg tablet Take 1 tablet by mouth two times a day. 180 tablet (more content not included)... Normal [facility] HEMOGLOBIN A1C (POC)on 09-07 HbA1c (Bld) [Mass fraction] 7.5 % Abnormal 4.3 - 5.6 % [facility] Comment on above: Location:[facility], [address] [place] [address], [id number] Point of care (POC) Hemoglobin A1c (HGBA1C) testing is intended to assess glucose control and provide a management tool for patients known to have diabetes and their healthcare providers. Target HGBA1C levels may depend on specific clinical circumstances. POC HGBA1C is not intended for use as a diagnostic or screening test; laboratory-based testing should be used for diagnostic purposes. The following information is supplemental and may not be applicable to specific diabetes management situations: The POC device die cast technician provides a normal range of 4.2% to 6.5% for the HGBA1C POC test. However, the [place] [employer] guidelines indicate that patients with HGBA1C in the range of 5.7% to 6.4% are at increased risk for development of diabetes and that intervention by lifestyle modification may be beneficial. A HGBA1C level greater than or equal to 6.5% is considered diagnostic of diabetes, pending confirmatory testing. Use of HGBA1C testing to evaluate glucose control may not be appropriate for patients with hemoglobin variants or other conditions (e.g. anemia) that alter red blood cell lifespan. Interpretation and review of laboratory results Abnormal [facility] SHANNONNon 08-25-2024 CNPN Telephone ([employer]) KENNY VALADEZ ([id number]) 1955 F Date Time Provider Department 08/25/24 MARY KATE BARBER During your visit today, we recorded the following information about you: Kori Manuel, MENDY 08/25/2024 2:15 PM Signed Patient has taken the 4th dose of Mounjaro 2.5 mg today. She is asking for refills... discussed she is to increase to the next dose if she is tolerating well. She reports that she is tolerating well. Recommended she increase as prescribed to the 5 mg dose next week. She has an appointment on 09/07/24, she can report how she is doing at that time. Closed. Allergies As of Date: 08/25/2024 Noted Allergy Reaction ANIMAL DANDER 04/08/2023 9 - Itching Comments: Itchy watery eyes, sneezing IMITREX (SUMATRIPTAN) 04/07/2023 14 - Other: See Comments OZEMPIC (SEMAGLUTIDE) 06/07/2024 5 - Intolerance Comments: Constipation PROPOXYPHENE 02/23/2024 14 - Other: See Comments STEROIDS (BETAMETHASONE DIPROPION*01/31/2008 Date Reviewed: 08/23/2024 Reviewed by: Mesfin Perrin MD - Fully Assessed Reason for Visit: Patient Update [1234] Prescriptions as of 08/25/2024 - azithromycin (ZITHROMAX) 250 mg tablet TAKE 2 TABLETS BY MOUTH TODAY, THEN TAKE 1 TABLET DAILY FOR 4 DAYS DIRECTED - spironolactone (ALDACTONE) 25 mg tablet Take 0.5 tablets by mouth three times a week. - RESTASIS 0.05 % ophthalmic emulsion USE 1 DROP IN BOTH EYES TWO TIMES A DAY. - sacubitril-valsartan (ENTRESTO) 24-26 mg tablet Take 1 tablet by mouth two times a day. - nitroglycerin sublingual (NITROQUICK) 0.4 mg SL tablet Dissolve 1 tablet under the tongue every 5 minutes as needed for chest pain. - bempedoic acid (NEXLETOL) 180 mg tablet Take 1 tablet (180 mg) by mouth once daily. - TRESIBA FLEXTOUCH U-200 200 unit/mL (3 mL) injection Inject subcutaneously 70 units daily - tirzepatide (MOUNJARO) 2.5 mg/0.5 mL pen injector Inject 2.5 mg subcutaneously one time a week. X 4 wks then increase to 5 mg weekly. - tirzepatide (MOUNJARO) 5 mg/0.5 mL pen injector Inject 5 mg subcutaneously one time a week. Patient should start on July 04, 2024. - dapagliflozin propanediol (FARXIGA) 10 mg tablet Take 1 tablet by mouth daily with breakfast. - clopidogrel (PLAVIX) 75 mg tablet Take 1 tablet by mouth once daily. - ketotifen fumarate (ZADITOR) 0.025 % (0.035 %) ophthalmic solution USE 1 DROP IN BOTH EYES TWO TIMES A DAY. - blood sugar diagnostic ([employer] ULTRA TEST) test strip Use as instructed to test blood sugar 3 times daily. DX: E11.42, insulin dependent. - diphenhydrAMINE (BENADRYL ALLERGY) 12.5 mg/5 mL liquid - NOVOLOG FLEXPEN U-100 INSULIN 100 unit/mL (3 mL) INJECT SUBCUTANEOUSLY BREAKFAST 20 UNITS, LUNCH 20 UNITS , DINNER 20 UNITS PLUS SCALE UP TO 70 UNITS DAILY - carvedilol (COREG) 3.125 mg tablet take 1 tablet by mouth twice a day with food - insulin needles, DISPOSABLE, (BD INSULIN PEN NEEDLE UF) 31 gauge x 03/30 Use 4 pen needles daily - Multivitamin capsule Take 1 capsule by mouth once daily. - fexofenadine (ANGELA) 180 mg tablet Take 180 mg by mouth once daily. - aspirin, enteric coated (ASPIRIN, ENTERIC COATED) 81 mg EC tablet Take 1 tablet by mouth once daily. Problem List As Of Date 08/25/2024 Noted Resolved CERVICAL DISC DISPLACMNT [M50.20] 02/03/2008 Chronic sinusitis [J32.9] 06/09/2012 Albuminuria [R80.9] 02/19/2021 Recurrent UTI [N39.0] 02/19/2021 Dysuria [R30.0] 02/19/2021 Essential hypertension [I10] 02/19/2021 Type 2 diabetes mellitus with diabetic polyneur*03/07/2021 Mixed hyperlipidemia [E78.2] 03/07/2021 Nontoxic single thyroid nodule [E04.1] 12/04/2022 NSTEMI (non-ST elevated myocardial infarction) *04/08/2023 04/13/2023 Primary hypertension [I10] 04/08/2023 Acute systolic CHF (congestive heart failure) (*04/13/2023 Dyslipidemia [E78.5] 04/13/2023 Pericardial effusion [I31.39] 04/13/2023 Coronary artery disease of chitina artery of jf*05/03/2023 Chronic systolic congestive heart failure (HCC)*05/03/2023 Cardiomyopathy, ischemic [I25.5] 05/03/2023 Hypoglycemia due to type 2 diabetes mellitus (H*08/10/2023 Statin intolerance [Z78.9] 10/18/2023 Type 2 diabetes mellitus with diabetic microalb*06/07/2024 Obesity, Class I, BMI 30-34.9 [E66.811] 06/07/2024 Encounter Status:Closed by KORI MANUEL on 08/25/24 [facility] Brianne 07-24-2024 CN [facility] KENNY VALADEZ ([id number]) 1955 F Date Time Provider Department 07/24/24 1:30 PM [facility] During your visit today, we recorded the following information about you: Pulse Blood pressure Weight 74/minute 126/74 87.7 kg Jody Sparks APRN.CNP 07/24/2024 3:01 PM [facility] OUTPATIENT VISIT DATE July 24, 2024 OUTPATIENT VISIT TYPE ESTABLISHED PRIMARY CARE PHYSICIAN: David Wynn DO CHIEF COMPLAINT: Patient presents with: Shortness of Breath HISTORY OF PRESENT ILLNESS: Kenny Valadez is a 69 year old female who presents today for a follow-up visit in the Heart Failure Clinic. Pt was last seen on 06/07/2024. At that visit, patient reported that she has had gained weight due to caloric intake and inactivity. She reported intermittent chest discomfort. She had not taken SL NTG for this issue. She was euvolemic on examination and no changes were made to her medications. Pt did follow up with Dr. Dodd on 06/12/2024. She reported similar symptoms as visit on 06/07. Echo and labs were ordered. Echo was done (see results below) and was unchanged from previous echo. Today, patient reports that she had been having spasms in her R shoulder for some time. She states that the spasms were what she experienced when she had STEMI. She states that she stopped Spironolactone because she felt that it was causing her to be dehydrated and caused shoulder spasms. She states that once she stopped taking the medication, the shoulder spasms stopped. She has not taken any SL NTG. She states that she is concerned that she had Echo done and there has not been an improvement in her EF. She denies CP, PND, orthopnea, or presence of edema. She notes that she is SOB with exertion. She attributes this to her recent weight gain that was from caloric intake. She states that she has been trying to lose weight to see if this would help with her feelings of SOB. She is following a low sodium diet to the best of her ability. Weights at home have been stable with no sharp increases or decreases. Patient has had 0 hospitalizations and/or emergency room encounters in the last 12 months. SOB: Yes: with exertion Fatigue: Yes: increased Orthopnea:No PND: No Edema:No Chest Pain:Yes: R shoulder spasms occasionally. She reports that they will resolve with massage. Palpitations:No Dizziness/Lightheadedn ess:No Syncope:No Appetite: good Diet:low salt (2000 mg) Fluid Restriction: No Regular Exercise: No PAST CARDIAC HISTORY: Heart failure: systolic Ischemic, coronary artery disease and s/p PCI to LAD 04/08/2023. Her cardiac history is also significant for T2DM, HTN, hyperlipidemia, CAD, ICM. Device: NA. PAST MEDICAL HISTORY No date: Arthritis No date: Asthma 02/03/2008: CERVICAL DISC DISPLACMNT No date: Chronic systolic heart failure (HCC) No date: Coronary artery disease No date: Degenerative disc disease No date: Diabetes mellitus type 2, controlled (HCC) No date: Herniated disc No date: HLD (hyperlipidemia) No date: HTN (hypertension) No date: Ischemic cardiomyopathy No date: Migraines No date: BELA (obstructive sleep apnea) 04/13/2023: Pericardial effusion No date: Thyroid nodule No date: Unspecified essential hypertension Comment: Essential hypertension PAST SURGICAL HISTORY No date: ADENOIDECTOMY PRIMARY Comment: Adenoidectomy No date: APPENDECTOMY Comment: W/ exploratory lap No date: BACK SURGERY HX No date: CHOLECYSTECTOMY 09/2023: REMV CATARACT EXTRACAP,INSERT LENS; Bilateral No date: TONSILLECTOMY PRIMARY/SECONDARY Comment: Tonsillectomy No date: VAGINAL HYSTERECTOMY UTERUS 250 GM/< Comment: Hysterectomy, vaginal Social History Tobacco Use Smoking status: Never Smokeless tobacco: Never Tobacco comments: Secondhand smoke exposure x 30 years (Father and 1st ) Substance Use Topics Alcohol use: Yes Comment: rare Drug use: No Family History Problem Relation Age of Onset Heart Mother Allergies Mother Arthritis Mother Asthma Mother Genitourinary () Mother bladder suspension in her 50's Hearing Loss Mother Hypertension Mother Lipids Mother Osteoporosis Mother Heart Father Cancer Father sarcoma Diabetes Father Hearing Loss Father Hypertension Father Lipids Father Stroke Father TIA'S Heart Maternal Grandmother Heart Maternal Grandfather Heart Paternal Grandmother Diabetes Paternal Grandmother other (Goiter) Paternal Grandmother Heart Paternal Grandfather Cancer Paternal Aunt I lost 11 aunts and uncles Cancer Paternal Uncle I lost 11 aunts and uncles Diabetes Paternal Aunt Diabetes Maternal Uncle Headache Daughter migraines ALLERGIES Allergen Reactions Animal Dander Itching Itchy watery ey (more content not included)... [facility] Liliana 07-06-2024 SHANNON Telephone (AGCARDPOB ) KENNY VALADEZ ([id number]) 1955 F Date Time Provider Department 07/06/24 YARED DODD AGCARDPOB During your visit today, we recorded the following information about you: Tracey Oliveira RN 07/06/2024 2:24 PM Signed Ignacia Kenny, I reviewed your echocardiogram. The heart pumping function is unchanged from prior. Again, a normal heart has an ejection fraction of 55-60%. Your ejection fraction has been stable at 30-35%. ... Tracey Oliveira RN 07/06/2024 2:24 PM Signed Attempted to call pt. No answer, no voicemail. MENDY Osborne Jessica, LPN 07/06/2024 3:01 PM Signed I spoke to Rory and informed them of 's response to Echo results and recommendations. Patient voiced understanding and states she already looked at results. Patient concerned about conclusion where it says, Consider repeat limited ECHO with contrast to assess for thrombus. She is asking if she needs another Echo ordered? She would like response sent to her in [facility]. Su Wood LPN Allergies As of Date: 07/06/2024 Noted Allergy Reaction ANIMAL DANDER 04/08/2023 9 - Itching Comments: Itchy watery eyes, sneezing IMITREX (SUMATRIPTAN) 04/07/2023 14 - Other: See Comments OZEMPIC (SEMAGLUTIDE) 06/07/2024 5 - Intolerance Comments: Constipation PROPOXYPHENE 02/23/2024 14 - Other: See Comments STEROIDS (BETAMETHASONE DIPROPION*01/31/2008 Date Reviewed: 06/12/2024 Reviewed by: Yared Dodd MD - Fully Assessed Reason for Visit: Results [95] Prescriptions as of 07/06/2024 - RESTASIS 0.05 % ophthalmic emulsion USE 1 DROP IN BOTH EYES TWO TIMES A DAY. - sacubitril-valsartan (ENTRESTO) 24-26 mg tablet Take 1 tablet by mouth two times a day. - spironolactone (ALDACTONE) 25 mg tablet Take 0.5 tablets by mouth once daily. - nitroglycerin sublingual (NITROQUICK) 0.4 mg SL tablet Dissolve 1 tablet under the tongue every 5 minutes as needed for chest pain. - bempedoic acid (NEXLETOL) 180 mg tablet Take 1 tablet (180 mg) by mouth once daily. - TRESIBA FLEXTOUCH U-200 200 unit/mL (3 mL) injection Inject subcutaneously 70 units daily - tirzepatide (MOUNJARO) 2.5 mg/0.5 mL pen injector Inject 2.5 mg subcutaneously one time a week. X 4 wks then increase to 5 mg weekly. - tirzepatide (MOUNJARO) 5 mg/0.5 mL pen injector Inject 5 mg subcutaneously one time a week. Patient should start on July 04, 2024. - dapagliflozin propanediol (FARXIGA) 10 mg tablet Take 1 tablet by mouth daily with breakfast. - clopidogrel (PLAVIX) 75 mg tablet Take 1 tablet by mouth once daily. - ketotifen fumarate (ZADITOR) 0.025 % (0.035 %) ophthalmic solution USE 1 DROP IN BOTH EYES TWO TIMES A DAY. - blood sugar diagnostic ([employer] ULTRA TEST) test strip Use as instructed to test blood sugar 3 times daily. DX: E11.42, insulin dependent. - diphenhydrAMINE (BENADRYL ALLERGY) 12.5 mg/5 mL liquid - NOVOLOG FLEXPEN U-100 INSULIN 100 unit/mL (3 mL) INJECT SUBCUTANEOUSLY BREAKFAST 20 UNITS, LUNCH 20 UNITS , DINNER 20 UNITS PLUS SCALE UP TO 70 UNITS DAILY - carvedilol (COREG) 3.125 mg tablet take 1 tablet by mouth twice a day with food - insulin needles, DISPOSABLE, (BD INSULIN PEN NEEDLE UF) 31 gauge x 5/16 Use 4 pen needles daily - Multivitamin capsule Take 1 capsule by mouth once daily. - fexofenadine (ANGELA) 180 mg tablet Take 180 mg by mouth once daily. - aspirin, enteric coated (ASPIRIN, ENTERIC COATED) 81 mg EC tablet Take 1 tablet by mouth once daily. Facility-Administered Medications as of 07/06/2024 - perflutren lipid microspheres 1.3 mL in NaCl (PF) 0.9% 10 mL injection (DEFINITY) - sodium chloride 0.9 % (flush) 10 mL (BD POSIFLUSH) Problem List As Of Date 07/06/2024 Noted Resolved CERVICAL DISC DISPLACMNT [M50.20] 02/03/2008 Chronic sinusitis [J32.9] 06/09/2012 Albuminuria [R80.9] 02/19/2021 Recurrent UTI [N39.0] 02/19/2021 Dysuria [R30.0] 02/19/2021 Essential hypertension [I10] 02/19/2021 Type 2 diabetes mellitus with diabetic polyneur*03/07/2021 Mixed hyperlipidemia [E78.2] 03/07/2021 Nontoxic single thyroid nodule [E04.1] 12/04/2022 NSTEMI (non-ST elevated myocardial infarction) *04/08/2023 04/13/2023 Primary hypertension [I10] 04/08/2023 Acute systolic CHF (congestive heart failure) (*04/13/2023 Dyslipidemia [E78.5] 04/13/2023 Pericardial effusion [I31.39] 04/13/2023 Coronary artery disease of chitina artery of jf*05/03/2023 Chronic systolic congestive heart failure (HCC)*05/03/2023 Cardiomyopathy, ischemic [I25.5] 05/03/2023 Hypoglycemia due to type 2 diabetes mellitus (H*08/10/2023 Statin intolerance [Z78.9] 10/18/2023 Type 2 diabetes mellitus with diabetic microalb*06/07/2024 Obesity, Class I, BMI 30-34.9 [E66.9] 06/07/2024 Encounter Status:Closed by SU WOOD on 07/06/24 [facility] MA MAMMOGRAM SCREENING BILAT ERAL W/TOMOon 06-19-2024 MA MAMMOGRAM SCREENING BILATERAL W/ADALBERTO ORIGINAL FROM: [facility] [address] [address] PROCEDURE FOR: KENNY VALADEZ [address] [place] [address] Home: PID#: [id number] Exam#: [id number] : 1955 Age: 68 TO: DAVID WYNN DO [address] [facility] [place] [address] [place] [address] Fax: NO FAX EXAMINATION: SCREENING DIGITAL BILATERAL MAMMOGRAM WITH TOMOSYNTHESIS, 06/16/2024 2:23 pm TECHNIQUE: Screening mammography of the bilateral breasts was performed with tomosynthesis. 2D standard and 3D tomosynthesis combination imaging performed through both breasts in the MLO and CC projection. Computer aided detection was utilized in the interpretation of this exam. COMPARISON: 11/20/2022 HISTORY: Breast cancer screening. FINDINGS: BREAST DENSITY: The breasts are heterogeneously dense, which may obscure small masses. Benign calcifications are present in both breasts. There are no significant masses or calcifications. IMPRESSION: No mammographic evidence of malignancy. Continued screening with annual mammograms is recommended. Cosme Lew risk calculations, generated with the history provided, report this patient's 10 year risk and lifetime risk for developing breast cancer at 2.6% and 4.6%, respectively. Based on this assessment tool, if the patient's calculated lifetime risk is below 20%, then the patient is considered at average risk for developing breast cancer. If the patient's calculated lifetime risk is at or above 20%, then the patient is considered high risk for developing breast cancer and may be a candidate for supplemental breast MRI screening in addition to annual mammographic screening per the [place] [employer]. BIRADS: BI-RADS: 2: Benign RECALL: 1 year screening RECALL TYPE: mammo LETTER SENT: Normal BI-RADS 1 and 2 Interpreted by: Bridger Gill MD Preliminary Report By: Bridger Gill MD Electronically signed By Bridger Gill MD Dictated Date: 06/19/2024 7:07:58 AM Prelim Date: 06/19/2024 7:11:35 AM Sign Date: 06/19/2024 7:11:35 AM Ordering Provider: DAVID WYNN Air [employer] Specialist: LUISITO THOMAS(Ho)(M)(CT) letter sent: Normal BI-RADS 1 and 2 Mammogram BI-RADS: 2 Benign Normal [facility] ([place]) BD BONE DENSITY DEXA AXIAL S Francisca 06-16-2024 BD BONE DENSITY DEXA AXIAL SKELETON ORIGINAL EXAMINATION: BONE DENSITOMETRY06/16/2024 2:58 pm TECHNIQUE: Dual energy bone densitometry of the left hip and left forearm on Hologic system COMPARISON: None HISTORY: ORDERING SYSTEM PROVIDED HISTORY: Reason for Exam: Osteoporosis Screening postmenopausal FINDINGS: Total bone mineral density of the distal 3rd of the left forearm is 0.604 grams per square centimeters, and T-score being -1.4, indicating that this patient has osteopenia. Bone mineral density of the left femoral neck is 0.848 grams per square centimeters, and T-score being 0.0, indicating that this patient has normal bone mineral density. Total bone mineral density of the left hip is 1.064 grams per square centimeters, and T-score being 1.0, indicating that this patient has normal bone mineral density. IMPRESSION: Osteopenia. I have personally reviewed the images of this examination and agree with the resident's findings and interpretation. Interpreted by: Marii Moreno Preliminary Report By: Fam Pittman Electronically signed By Marii Moreno Dictated Date: 06/16/2024 4:16:19 PM Prelim Date: 06/16/2024 4:56:55 PM Sign Date: 06/16/2024 4:56:55 PM Ordering Provider: DAVID Day [facility] ([place]) [facility] KENNY VALADEZ ([id number]) 1955 F Date Time Provider Department 06/07/24 11:[address] [facility] During your visit today, we recorded the following information about you: Pulse Blood pressure Weight 80/minute 141/82 88.4 kg Jody Sparks APRN.CNP 06/07/2024 12:35 PM Signed Heart and Vascular [facility] OUTPATIENT VISIT DATE June 07, 2024 OUTPATIENT VISIT TYPE ESTABLISHED PRIMARY CARE PHYSICIAN: David Wynn DO CHIEF COMPLAINT: Patient presents with: Shortness of Breath HISTORY OF PRESENT ILLNESS: Kenny Noyola Rory is a 68 year old female who presents today for a follow-up visit in the Heart Failure Clinic. Pt was last seen on 02/28/2024. At that visit, patient reported that she was feeling more SOB with exertion and attributed this to a 10 lb weight gain in 3 months period of time. She reported chest tightness that resolved after some time. Did not require her to take SL NTG. On examination, she was euvolemic and her lungs were clear. No changes were made to her medications at that time. Today, patient reports that she has continued to gain weight since last visit. She states that she has cravings for sugar and once she starts eating it is hard for her to stop. She was seen by endocrinology today and will be starting Monjaro. She states that she does experience SOB with exertion that does resolve with rest period. She notes no SOB at rest. Denies PND and orthopnea. She notes that her allergies have been particularly bad this summer. She notes increased fatigue. She reports that she is having intermittent chest discomfort that starts on the right side of chest that radiates to L side of chest and up to shoulders. She states that she has not taken any SL NTG. She states that it can be continuous or last less than 5 minutes. She states that she has cervical disease and rotator cuff issues on the right. She notes that pain is similar to pain she had when she had IL. She has not went to the ED when she has had this pain. Currently, she is not experiencing this pain during visit. She is taking her medications as prescribed and she is following a low sodium diet to the best of her ability. Weights have been stable at 194 lbs. Patient has had 0 hospitalizations and/or emergency room encounters in the last 12 months. SOB: Yes: with exertion Fatigue: Yes: increased Orthopnea:No PND: No Edema:No Chest Pain:Yes: in the left side of chest and right side of chest area(s), which radiates to the neck and shoulders, that lasts for less than 5 minutes, relieved by nothing- does not currently have pain. This is intermittently. Palpitations:No Dizziness/Lightheadedn ess:yes, occasionally with no associated symptoms Syncope:No Appetite: good Diet:low salt (2000 mg) Fluid Restriction: No Regular Exercise: No PAST CARDIAC HISTORY: Heart failure: systolic Ischemic, coronary artery disease and s/p PCI to LAD 04/08/2023. Her cardiac history is also significant for T2DM, HTN, hyperlipidemia, CAD, ICM. Device: NA. PAST MEDICAL HISTORY Diagnosis Date Arthritis Asthma CERVICAL DISC DISPLACMNT 02/03/2008 Chronic systolic heart failure (HCC) Coronary artery disease Degenerative disc disease Diabetes mellitus type 2, controlled (HCC) Herniated disc HLD (hyperlipidemia) HTN (hypertension) Ischemic cardiomyopathy Migraines BELA (obstructive sleep apnea) Pericardial effusion 04/13/2023 Thyroid nodule Unspecified essential hypertension Essential hypertension PAST SURGICAL HISTORY Procedure Laterality Date ADENOIDECTOMY PRIMARY Adenoidectomy APPENDECTOMY W/ exploratory lap BACK SURGERY HX CHOLECYSTECTOMY REMV CATARACT EXTRACAP,INSERT LENS Bilateral 09/2023 TONSILLECTOMY PRIMARY/SECONDARY Tonsillectomy VAGINAL HYSTERECTOMY UTERUS 250 GM/< Hysterectomy, vaginal Social History Tobacco Use Smoking status: Never Smokeless tobacco: Never Tobacco comments: Secondhand smoke exposure x 30 years (Father and 1st ) Substance Use Topics Alcohol use: Yes Comment: rare Drug use: No Family History Problem Relation Age of Onset Heart Mother Allergies Mother Arthritis Mother Asthma Mother Genitourinary () Mother bladder suspension in her 50's Hearing Loss Mother Hypertension Mother Lipids Mother Osteoporosis Mother Heart Father Cancer Father sarcoma Diabetes Father Hearing Loss Father Hypertension Father Lipids Father Stroke Father TIA'S Heart Maternal Grandmother Heart Maternal Grandfather Heart Paternal Grandmother Diabetes Paternal Grandmother other (Goiter) Paternal Grandmother Heart Paternal Grandfather Cancer Paternal Aunt I lost 11 aunts and uncles Cancer Paternal Uncle I lost 11 aunts and uncles Diabetes Paternal Aunt Di (more content not included)... Normal [facility] ON DEMANDon Ordered by an unspecified provider. [facility] HEMOGLOBIN A1C (POC)on 06-07 HbA1c (Bld) [Mass fraction] 8.1 % Abnormal 4.3 - 5.6 % [facility] Comment on above: Location:[facility], [address] [place], [address] Point of care (POC) Hemoglobin A1c (HGBA1C) testing is intended to assess glucose control and provide a management tool for patients known to have diabetes and their healthcare providers. Target HGBA1C levels may depend on specific clinical circumstances. POC HGBA1C is not intended for use as a diagnostic or screening test; laboratory-based testing should be used for diagnostic purposes. The following information is supplemental and may not be applicable to specific diabetes management situations: The POC device die cast technician provides a normal range of 4.2% to 6.5% for the HGBA1C POC test. However, the [place] [employer] guidelines indicate that patients with HGBA1C in the range of 5.7% to 6.4% are at increased risk for development of diabetes and that intervention by lifestyle modification may be beneficial. A HGBA1C level greater than or equal to 6.5% is considered diagnostic of diabetes, pending confirmatory testing. Use of HGBA1C testing to evaluate glucose control may not be appropriate for patients with hemoglobin variants or other conditions (e.g. anemia) that alter red blood cell lifespan. Interpretation and review of laboratory results Abnormal [facility] .Auto Diffon 04-12-2024 Basophil, Absolute 0.1 10 3/mcL Normal 0.0-0.2 [facility] ([place]) Comment on above: Performed By: #### G FR, ADIFF, TSH, CBC, ANEU, BMP #### [place] [address] #### B12 #### [address] [address] Basophils/100 WBC (Bld) 0.5 % Normal 0.0-2.5 [facility] ([place]) Comment on above: Performed By: #### G FR, ADIFF, TSH, CBC, ANEU, BMP #### [address] [address] #### B12 #### [address] [address] Eosinophil, Absolute 0.8 10 3/mcL High 0.0-0.4 [facility] ([place]) Comment on above: Performed By: #### G FR, ADIFF, TSH, CBC, ANEU, BMP #### [place] [address] #### B12 #### [address] [address] Eosinophils/100 WBC (Bld) 6.6 % Normal 0.0-7.0 [facility] ([place] Comment on above: Performed By: #### G FR, ADIFF, TSH, CBC, ANEU, BMP #### [address] [address] #### B12 #### [address] [address] Lymphocyte, Absolute 2.8 10 3/mcL Normal 0.8-3.9 [facility] ([place]) Comment on above: Performed By: #### G FR, ADIFF, TSH, CBC, ANEU, BMP #### [address] [address] #### B12 #### [address] [address] Lymphocytes/100 WBC (Bld) 22.7 % Normal 10.0-50.0 [facility] ([place]) Comment on above: Performed By: #### G FR, ADIFF, TSH, CBC, ANEU, BMP #### [address] [address] #### B12 #### [address] [address] Monocyte, Absolute 0.7 10 3/mcL Normal 0.2-1.0 [facility] ([place]) Comment on above: Performed By: #### G FR, ADIFF, TSH, CBC, ANEU, BMP #### [address] [address] #### B12 #### [address] [address] Monocytes/100 WBC (Bld) 5.4 % Normal 1.7-13.0 [facility] ([place]) Comment on above: Performed By: #### G FR, ADIFF, TSH, CBC, ANEU, BMP #### [address] [address] #### B12 #### [address] [address] Neutrophils/100 WBC (Bld) 64.8 % Normal 37.0-80.0 [facility] ([place]) Comment on above: Performed By: #### G FR, ADIFF, TSH, CBC, ANEU, BMP #### [place] [address] #### B12 #### [address] [address] .GFRon 04-12-2024 GFR Non- 46 ml/min/1.73sqm Normal [facility] ([place]) Comment on above: Result Comment: GFR Population mean for , Non- Americans Ages 20-29 = 116 mL/min/1.73 sq.m. Ages 30-39 = 107 mL/min/1.73 sq.m. Ages 40-49 = 99 mL/min/1.73 sq.m. Ages 50-59 = 93 mL/min/1.73 sq.m. Ages 60-69 = 85 mL/min/1.73 sq.m. Ages 70+ = 75 mL/min/1.73 sq.m. Chronic Kidney Disease: Less than 60 mL/min/1.73 square meters End Stage Renal Disease: Less than 15 mL/min/1.73 square meters Performed By: #### G FR, ADIFF, TSH, CBC, ANEU, BMP #### [address] [address] #### B12 #### [address] [address] GFR 56 ml/min/1.73sqm Normal [facility] ([place] Comment on above: Result Comment: GFR Population mean for , Non- Americans Ages 20-29 = 116 mL/min/1.73 sq.m. Ages 30-39 = 107 mL/min/1.73 sq.m. Ages 40-49 = 99 mL/min/1.73 sq.m. Ages 50-59 = 93 mL/min/1.73 sq.m. Ages 60-69 = 85 mL/min/1.73 sq.m. Ages 70+ = 75 mL/min/1.73 sq.m. Chronic Kidney Disease: Less than 60 mL/min/1.73 square meters End Stage Renal Disease: Less than 15 mL/min/1.73 square meters Performed By: #### G FR, ADIFF, TSH, CBC, ANEU, BMP #### [address] [address] #### B12 #### [address] [address] .NEUABSon 04-12-2024 Neutrophil, Absolute 7.9 10 3/mcL High 2.9-6.2 [facility] ([place]) Comment on above: Performed By: #### G FR, ADIFF, TSH, CBC, ANEU, BMP #### [address] [address] #### B12 #### [place] [address] B12on 04-12-2024 Cobalamin (Vitamin B12) [Mass/Vol] 282 pg/mL Normal 211-911 [facility] ([place] Comment on above: Performed By: #### G FR, ADIFF, TSH, CBC, ANEU, BMP #### [place] [address] #### B12 #### [address] 04-12-2024 BUN/Creatinine Ratio 16 ratio Normal 7-27 [facility] ([place]) Comment on above: Performed By: #### G FR, ADIFF, TSH, CBC, ANEU, BMP #### [place] [address] #### B12 #### [place] [address] Calcium [Mass/Vol] 9.4 mg/dL Normal 8.4-10.2 [facility] ([place]) Comment on above: Performed By: #### G FR, ADIFF, TSH, CBC, ANEU, BMP #### [place] [address] #### B12 #### [place] [address] Chloride [Moles/Vol] 105 mmol/L Normal 98-107 [facility] ([place]) Comment on above: Performed By: #### G FR, ADIFF, TSH, CBC, ANEU, BMP #### [place] [address] #### B12 #### [address] [address] CO2 [Moles/Vol] 25 mmol/L Normal 23-31 [facility] ([place] Comment on above: Performed By: #### G FR, ADIFF, TSH, CBC, ANEU, BMP #### [address] [address] #### B12 #### [address] [address] Creatinine [Mass/Vol] 1.16 mg/dL High 0.55-1.02 [facility] ([place]) Comment on above: Performed By: #### G FR, ADIFF, TSH, CBC, ANEU, BMP #### [address] [address] #### B12 #### [address] [address] Electrolyte Balance 11.0 mEq/L Normal 4.0-15.0 [facility] ([place]) Comment on above: Performed By: #### G FR, ADIFF, TSH, CBC, ANEU, BMP #### [address] [address] #### B12 #### [address] [address] Glucose [Mass/Vol] 153 mg/dL High 80-115 [facility] ([place]) Comment on above: Performed By: #### G FR, ADIFF, TSH, CBC, ANEU, BMP #### [address] [address] #### B12 #### [address] [address] Potassium [Moles/Vol] 4.3 mmol/L Normal 3.5-5.1 [facility] ([place]) Comment on above: Performed By: #### G FR, ADIFF, TSH, CBC, ANEU, BMP #### [address] [address] #### B12 #### [address] [address] Sodium [Moles/Vol] 141 mmol/L Normal 136-145 [facility] ([place]) Comment on above: Performed By: #### G FR, ADIFF, TSH, CBC, ANEU, BMP #### [place] [address] #### B12 #### [place] [address] Urea nitrogen [Mass/Vol] 19 mg/dL High 7-18 [facility] ([place] Comment on above: Performed By: #### G FR, ADIFF, TSH, CBC, ANEU, BMP #### [place] [address] #### B12 #### [place] [address] CBCon 04-12-2024 Erythrocyte distribution width (RBC) [Ratio] 13.2 % Normal 11.5-14.5 [facility] ([place] Comment on above: Performed By: #### G FR, ADIFF, TSH, CBC, ANEU, BMP #### [place] [address] #### B12 #### [place] [address] Hematocrit (Bld) [Volume fraction] 45.2 % Normal 37.0-47.0 [facility] ([place] Comment on above: Performed By: #### G FR, ADIFF, TSH, CBC, ANEU, BMP #### [place] [address] #### B12 #### [place] [address] Hgb 15.8 G/dL Normal 12.0-16.0 [facility] ([place] Comment on above: Performed By: #### G FR, ADIFF, TSH, CBC, ANEU, BMP #### [place] [address] #### B12 #### [place] [address] MCH (RBC) [Entitic mass] 30.9 pg Normal 27.0-31.2 [facility] ([place] Comment on above: Performed By: #### G FR, ADIFF, TSH, CBC, ANEU, BMP #### [place] [address] #### B12 #### [address] [address] MCHC 35.0 G/dL Normal 33.0-37.0 [facility] ([place] Comment on above: Performed By: #### G FR, ADIFF, TSH, CBC, ANEU, BMP #### [place] [address] #### B12 #### [place] [address] MCV (RBC) [Entitic vol] 88.2 fL Normal 80.0-94.0 [facility] ([place] Comment on above: Performed By: #### G FR, ADIFF, TSH, CBC, ANEU, BMP #### [place] [address] #### B12 #### [place] [address] Platelet 235 10 3/mcL Normal 130-400 [facility] ([place] Comment on above: Performed By: #### G FR, ADIFF, TSH, CBC, ANEU, BMP #### [place] [address] #### B12 #### [place] [address] Platelet mean volume (Bld) [Entitic vol] 9.0 fL Normal 7.4-10.4 [facility] ([place] Comment on above: Performed By: #### G FR, ADIFF, TSH, CBC, ANEU, BMP #### [place] [address] #### B12 #### [place] [address] RBC 5.12 10 6/mcL Normal 4.20-5.40 [facility] ([place] Comment on above: Performed By: #### G FR, ADIFF, TSH, CBC, ANEU, BMP #### [address] [place], [place] [address] #### B12 #### [address] [address] WBC 12.1 10 3/mcL High 4.6-10.8 [facility] ([place] Comment on above: Performed By: #### G FR, ADIFF, TSH, CBC, ANEU, BMP #### [place] [address] [place], [place] [address] #### B12 #### [address] [address] LABORATORYOrdered By: Hattie Hodges on 04-12-2024 Albumin DL <= 20 mg/L (U) [Mass/Vol] [address] mcg/dL Invalid Interpretation Code AO ADM SS Albumin/Creatinine DL <= 20 mg/L (U) [Mass ratio] 91 mcg/mg High 0 - 30 mcg/mg AO ADM SS Creatinine (U) [Mass/Vol] 116.3 mg/dL Normal 28.0 - 117.0 mg/dL AO ADM SS LABORATORYOrdered By: SYSTEM SYSTEM on 04-12-2024 Basophil, Absolute 0.1 103/mcL Normal 0.0 - 0.2 10^3/mcL AO Workflow SS Basophils/100 WBC (Bld) 0.5 % Normal 0.0 - 2.5 % AO Workflow SS Calcium [Mass/Vol] 9.4 mg/dL Normal 8.4 - 10. 2 mg/dL AO ADM SS Chloride [Moles/Vol] 105 mmol/L Normal 98 - 10 7 mmol/L AO ADM SS CO2 [Moles/Vol] 25 mmol/L Normal 23 - 31 mmol/L AO ADM SS Cobalamin (Vitamin B12) [Mass/Vol] 282 pg/mL Normal 211 - 911 pg/mL AH ADM SS Creatinine [Mass/Vol] 1.16 mg/dL High 0.55 - 1.02 mg/dL AO ADM SS Electrolyte Balance 11.0 mEq/L Normal 4.0 - 15 .0 mEq/L AO ADM SS Eosinophil, Absolute 0.8 103/mcL High 0.0 - 0 .4 10^3/mcL AO Workflow SS Eosinophils/100 WBC (Bld) 6.6 % Normal 0.0 - 7.0 % AO Workflow SS Erythrocyte distribution width (RBC) [Ratio] 13.2 % Normal 11.5 - 14.5 % AO Workflow SS GFR/1.73 sq M.predicted among blacks MDRD (S/P/Bld) [Vol rate/Area] 56 ml/min/1.73sqm Invalid Interpretation Code AO Chemistry S Comment on above: Interpretive Data: GFR Population mean for , Non- Americans Ages 20-29 = 116 mL/min/1.73 sq.m. Ages 30-39 = 107 mL/min/1.73 sq.m. Ages 40-49 = 99 mL/min/1.73 sq.m. Ages 50-59 = 93 mL/min/1.73 sq.m. Ages 60-69 = 85 mL/min/1.73 sq.m. Ages 70+ = 75 mL/min/1.73 sq.m. Chronic Kidney Disease: Less than 60 mL/min/1.73 square meters End Stage Renal Disease: Less than 15 mL/min/1.73 square meters GFR/1.73 sq M.predicted among non-blacks MDRD (S/P/Bld) [Vol rate/Area] 46 ml/min/1.73sqm Invalid Interpretation Code AO Chemistry S Comment on above: Interpretive Data: GFR Population mean for , Non- Americans Ages 20-29 = 116 mL/min/1.73 sq.m. Ages 30-39 = 107 mL/min/1.73 sq.m. Ages 40-49 = 99 mL/min/1.73 sq.m. Ages 50-59 = 93 mL/min/1.73 sq.m. Ages 60-69 = 85 mL/min/1.73 sq.m. Ages 70+ = 75 mL/min/1.73 sq.m. Chronic Kidney Disease: Less than 60 mL/min/1.73 square meters End Stage Renal Disease: Less than 15 mL/min/1.73 square meters Glucose [Mass/Vol] 153 mg/dL High 80 - 115 mg/dL AO ADM SS Hematocrit (Bld) [Volume fraction] 45.2 % Normal 37.0 - 47.0 % AO Workflow SS Hemoglobin (Bld) [Mass/Vol] 15.8 G/dL Normal 12.0 - 16.0 G/dL AO Workflow SS Lymphocyte, Absolute 2.8 103/mcL Normal 0.8 - 3 .9 10^3/mcL AO Workflow SS Lymphocytes/100 WBC (Bld) 22.7 % Normal 10.0 - 50.0 % AO Workflow SS MCH (RBC) [Entitic mass] 30.9 pg Normal 27.0 - 31.2 pg AO Workflow SS MCHC 35.0 G/dL Normal 33.0 - 37.0 G/dL AO Workflow SS MCV (RBC) [Entitic vol] 88.2 fL Normal 80.0 - 94.0 fL AO Workflow SS Monocyte, Absolute 0.7 103/mcL Normal 0.2 - 1.0 10^3/mcL AO Workflow SS Monocytes/100 WBC (Bld) 5.4 % Normal 1.7 - 13.0 % AO Workflow SS Neutrophil, Absolute 7.9 103/mcL High 2.9 - 6 .2 10^3/mcL AO Workflow SS Neutrophils/100 WBC (Bld) 64.8 % Normal 37.0 - 80.0 % AO Workflow SS Platelet mean volume (Bld) [Entitic vol] 9.0 fL Normal 7.4 - 10.4 fL AO Workflow SS Platelets (Bld) [#/Vol] 235 103/mcL Normal 130 - 400 10^3/mcL AO Workflow SS Potassium [Moles/Vol] 4.3 mmol/L Normal 3.5 - 5.1 mmol/L AO ADM SS RBC (Bld) [#/Vol] 5.12 106/mcL Normal 4.20 - 5.4 0 10^6/mcL AO Workflow SS Sodium [Moles/Vol] 141 mmol/L Normal 136 - 145 mmol/L AO ADM SS TSH Qn 1.24 m[IU]/L Normal 0.36 - 3.74 mcIU/mL AO ADM SS Urea nitrogen [Mass/Vol] 19 mg/dL High 7 - 18 mg/dL AO ADM SS Urea nitrogen/Creatinine [Mass ratio] 16 ratio Normal 7 - 27 ratio AO ADM SS WBC (Bld) [#/Vol] 12.1 103/mcL High 4.6 - 10.8 10^3/mcL AO Workflow SS MALBRon 04-12-2024 U Creatinine 116.3 mg/dL Normal 28.0-117.0 [facility] ([place]) Comment on above: Performed By: #### M ALB #### [address] [address] U Microalb [address] mcg/dL Normal [facility] ([place]) Comment on above: Performed By: #### M ALBR #### [place] [address] [place], [place] [address] U Ratio Alb/Cre 91 mcg/mg High 0-30 [facility] ([place] Comment on above: Performed By: #### M ALBR #### [place] [address] [place], [place] [address] TSHon 04-12-2024 TSH Qn 1.24 m[IU]/L Normal 0.36-3.74 [facility] ([place]) Comment on above: Performed By: #### G FR, ADIFF, TSH, CBC, ANEU, BMP #### [place] [address] [place], [place] [address] #### B12 #### [place] [address] CNOVon 02-28-2024 CN [facility] RORYKENNY Silva ([id number]) 1955 F Date Time Provider Department 02/28/24 3:[address] [facility] During your visit today, we recorded the following information about you: Pulse Blood pressure Weight 99/minute 126/78 88 kg Jody Sparks APRN.MANAGER NEWS 02/28/2024 4:28 PM Signed Heart and Vascular [facility] OUTPATIENT VISIT DATE February 28, 2024 OUTPATIENT VISIT TYPE ESTABLISHED PRIMARY CARE PHYSICIAN: David Wynn DO CHIEF COMPLAINT: Patient presents with: Shortness of Breath HISTORY OF PRESENT ILLNESS: Kenny Valadez is a 68 year old female who presents today for a follow-up visit in the Heart Failure Clinic. Pt was last seen on 11/01/2023. At that visit, patient reported that she was feeling well. She was getting over having the flu. She reported some mild SOB with exertion that did resolve with brief rest period. She reported some issues with insomnia and felt this was due to Entresto and Coreg and the times she was taking the medications. It was discussed changing timing of taking medications. She reported she was not eating a low sodium diet. No changes were made to her medications at that visit. Today, patient reports that she has been feeling more SOB with exertion. She notes that she has gained about 10 lbs in the last 3 months. She notes that when she gains this much weight she does feel more SOB with exertion. She also notes some chest tightness that does resolve after some time. She denies associated diaphoresis or palpitations. Tightness does not radiate. She has not taken any SL NTG. She notes that resting will resolve SOB. She reports she is under a significant amount of stress with home and work life. She denies SOB at rest, PND, orthopnea, or the presence of edema. She is not following a low sodium diet. Mentions that she ate half a pizza a few days ago. She is taking her medications as prescribed. She is not currently exercising. Patient has had 0 hospitalizations and/or emergency room encounters in the last 12 months. SOB: Yes: with exertion Fatigue: Yes: increased Orthopnea:No, one roll pillow PND: No Edema:No Chest Pain:Yes: intermittently that resolves with rest Palpitations:No Dizziness/Lightheadedn ess:No Syncope:No Appetite: good Diet:regular Fluid Restriction: No Regular Exercise: No PAST CARDIAC HISTORY: Heart failure: systolic Ischemic, coronary artery disease and s/p PCI to LAD 04/08/2023. Her cardiac history is also significant for T2DM, HTN, hyperlipidemia, CAD, ICM. Device: NA. PAST MEDICAL HISTORY Diagnosis Date Arthritis Asthma CERVICAL DISC DISPLACMNT 02/03/2008 Chronic systolic heart failure (HCC) Coronary artery disease Degenerative disc disease Diabetes mellitus type 2, controlled (HCC) Herniated disc HLD (hyperlipidemia) HTN (hypertension) Ischemic cardiomyopathy Migraines BELA (obstructive sleep apnea) Pericardial effusion 04/13/2023 Thyroid nodule Unspecified essential hypertension Essential hypertension PAST SURGICAL HISTORY Procedure Laterality Date ADENOIDECTOMY PRIMARY Adenoidectomy APPENDECTOMY W/ exploratory lap BACK SURGERY HX CHOLECYSTECTOMY REMV CATARACT EXTRACAP,INSERT LENS Bilateral 09/2023 TONSILLECTOMY PRIMARY/SECONDARY Tonsillectomy VAGINAL HYSTERECTOMY UTERUS 250 GM/< Hysterectomy, vaginal Social History Tobacco Use Smoking status: Never Smokeless tobacco: Never Tobacco comments: Secondhand smoke exposure x 30 years (Father and 1st ) Substance Use Topics Alcohol use: Yes Comment: rare Drug use: No Family History Problem Relation Age of Onset Heart Mother Allergies Mother Arthritis Mother Asthma Mother Genitourinary () Mother bladder suspension in her 50's Hearing Loss Mother Hypertension Mother Lipids Mother Osteoporosis Mother Heart Father Cancer Father sarcoma Diabetes Father Hearing Loss Father Hypertension Father Lipids Father Stroke Father TIA'S Heart Maternal Grandmother Heart Maternal Grandfather Heart Paternal Grandmother Diabetes Paternal Grandmother other (Goiter) Paternal Grandmother Heart Paternal Grandfather Cancer Paternal Aunt I lost 11 aunts and uncles Cancer Paternal Uncle I lost 11 aunts and uncles Diabetes Paternal Aunt Diabetes Maternal Uncle Headache Daughter migraines ALLERGIES Allergen Reactions Animal Dander Itching Itchy watery eyes, sneezing Imitrex [Sumatripta* Other: See Comments Propoxyphene Other: See Comments Steroids [Betametha* CURRENT MEDICATIONS: Current Outpatient Medications Medication Sig Dispense Refill diphenhydrAMINE (BENADRYL ALLERGY) 12.5 mg/5 mL liquid ketotifen fumarate (ZADITOR) 0.025 % (0.035 %) ophthalmic solution Use 1 Drop in both eyes two times a day. 5 mL (more content not included)... Normal [facility] HEMOGLOBIN A1C (POC)on 02-17 HbA1c (Bld) [Mass fraction] 8.5 % Abnormal 4.3 - 5.6 % [facility] CR - History AND Physicalon 05-03-2023 CR - History & Physical [facility] [address] [place] [address] CR - History Physical MR#: [id number] Acct: [id number] Name: KENNY VALADEZ Rep #: [id number] : [id number] 67 From: Oren Ramos FASHION PATTERNMAKER, MEDICAL DOCTOR NUCLEAR MEDICINE, BS PCP: Dr. David Wynn, DO DOS: 05/03/23 CR - History Physical - General Arrival date:: 05/03/23 Arrival time:: 08:05 Date of Referral:: 04/21/23 Date of CR Evaluation:: 05/03/23 Referring Physician: Dr. Yared Dodd [facility] Primary Diagnosis: STEMI, PCI w/coroanry stenting - History of Present Cardiac Event Onset Date: Enter Onset Date of cardiac illnesses in Comment field below Acute Myocardial Infarction within 12 months:: Yes - ST elevated myocardial infarction PTCA or coronary stenting:: Yes - PCI w/placement of coronary stent Vessel: Stent was placed in the LAD Type of Symptoms:: Tightness through the shoulders and upper back and down the arm to the elbow similar to muscle spasms would not let up, thought related to the herniated cervical disc. Interventions with present event:: Drove self-to the emergency room Were there any complications?: Pericardial effusion, cardiac carditis - Sleep Disorder Evaluation Hx of Sleep Apnea: Yes Do you snore loudly (louder than talking or can be heard through closed doors)?: Yes - test ed at [facility] supposed to use CPAP but is not using it Do you often feel tired/ fatigued/ sleepy during daytime?: Yes Has anyone observed you stop breathing during sleep?: Yes - sleep report shoed apnea 100 times History of Hypertension (for STOP score): Yes STOP Results: Positive - Medications Home Medications: Ambulatory Orders Medication Instructions Recorded aspirin 81 mg tablet,delayed 81 mg PO DAILY 05/03/23 release carvedilol 6.25 mg tablet (Coreg) 6.25 mg PO BID 05/03/23 clopidogrel 75 mg tablet (Plavix) 75 mg PO DAILY 05/03/23 colchicine 0.6 mg tablet 0.6 mg PO BID 05/03/23 dapagliflozin propanediol 5 mg 5 mg PO DAILY 05/03/23 tablet (Farxiga) fexofenadine 180 mg tablet 180 mg PO Q24H 05/03/23 insulin aspart U-100 100 unit/mL 15 unit subcut TID 05/03/23 subcutaneous solution insulin degludec 100 unit/mL 50 unit subcut DAILY 05/03/23 subcutaneous solution (Tresiba U-100 Insulin) nitroglycerin 0.4 mg sublingual 0.4 mg sublingual Q5M PRN Chest 05/03/23 tablet Pain pantoprazole 40 mg tablet,delayed 40 mg PO DAILY 05/03/23 release (Protonix) rosuvastatin 40 mg tablet (Crestor) 40 mg PO DAILY 05/03/23 sacubitril 24 mg-valsartan 26 mg 1 tab PO BID 05/03/23 tablet (Entresto) spironolactone 25 mg tablet 25 mg PO DAILY 05/03/23 (Aldactone) - Allergies Allergies/Adverse Reactions: Allergies animal dander Allergy (Verified 05/03/23 08:24) Other Corticosteroids (Glucocorticoids) [steroids] Allergy (Verified 05/03/23 08:24) Hives sumatriptan [From Imitrex] Allergy (Verified 05/03/23 08:24) Pain in joints Advanced Directives - Advanced Directives Power of Piece Goods Packer: No Living Will: No Advance Directives Information Provided: Yes Advance Directives on File: No DNR Order?:: No - MOLST See MOLST form: No Past Medical History - Covid-19 Screening Fever: No - hysterectomy but still has ovoaries experiences hot flashes then coldness Unexplained muscle aches: No Current respiratory symptoms: Yes - chronic rhinitis from allergies Upper respiratory infections symptoms: No Gastro-intestinal symptoms: No Sup-Yhej-Ikkyor symptoms: No Has tested positive for COVID-19 in last 30 days: No Date of testin05/03/23 - fully vaccinated Had contact w/person w/symptoms or Covid-19 (+) last 14 days: No Has High Risk Exposures ID'd by Health dept/Inf Control team: No 65 years or older:: Yes Lives in Assisted Living facility:: No Has a chronic lung disease or moderate to severe asthma:: No Has a serious heart condition:: No Immunocompromised:: No Severely obese (Body Mass Index of 40 or higher):: No Diabetic:: Yes Has chronic kidney disease undergoing dialysis:: No Has liver disease:: No - Past Medical Illness Medical History: Past Medical History (Last Updated 05/03/23 @ 08:46 by Oren Ramos, FASHION PATTERNMAKER, MEDICAL DOCTOR NUCLEAR MEDICINE, BS) Acute systolic heart failure I50.21 Arthritis M19.90 pretty bad in the back and cervical area Asthma J45.909 Chronic migraine Degenerative disc disease, cervical M50.30 Dyslipidemia E78.5 FH: cholecystectomy Z83.79 Herniated disc, cervical M50.20 History of placement of stent in LAD coronary artery Z95.5 Hypertension I10 Non-STEMI (non-ST elevated myocardial infarction) I21.4 Obstructive sleep apnea on CPAP G47.33 Pericardial effusion I31.39 Thyroid nodule E04.1 Type II diabetes mellitus E11.9 - Past Surgical History Surgical History: Past Surgical History (Last Updated 05/03/23 @ 08:46 by Oren Ramos, FASHION PATTERNMAKER, MEDICAL DOCTOR NUCLEAR MEDICINE, BS) H/O vaginal hysterectomy Z90.710 (more content not included)... Normal [facility] LABORATORYOrdered By: SYSTEM SYSTEM on 12-29-2022 Albumin BCP dye [Mass/Vol] 3.9 G/dL Invalid Interpretation Code 3.4 - 4.8 G/dL AO ADM SS Albumin/Globulin [Mass ratio] 1.1 {ratio} Invalid Interpretation Code 1.1 - 2.5 ratio AO ADM SS ALP [Catalytic activity/Vol] 79 U/L Invalid Interpretation Code 40 - 135 U/L AO ADM SS ALT With P-5'-P [Catalytic activity/Vol] 22 U/L Invalid Interpretation Code 14 - 59 U/L AO ADM SS AST With P-5'-P [Catalytic activity/Vol] 16 U/L Invalid Interpretation Code 10 - 40 U/L AO ADM SS Bilirubin [Mass/Vol] 0.4 mg/dL Invalid Interpretation Code 0.2 - 1.0 mg/dL AO ADM SS Calcium [Mass/Vol] 8.8 mg/dL Invalid Interpretation Code 8.4 - 10.2 mg/dL AO ADM SS Chloride [Moles/Vol] 106 mmol/L Invalid Interpretation Code 98 - 107 mmol/L AO ADM SS CO2 [Moles/Vol] 24 mmol/L Invalid Interpretation Code 23 - 31 mmol/L AO ADM SS Creatinine [Mass/Vol] 0.79 mg/dL Invalid Interpretation Code 0.55 - 1.02 mg/dL AO ADM SS Electrolyte Balance 13.0 mEq/L Invalid Interpretation Code 4.0 - 15.0 mEq/L AO ADM SS GFR 88 ml/min/1.73sqm Invalid Interpretation Code AO Chemistry S GFR Non- 73 ml/min/1.73sqm Invalid Interpretation Code AO Chemistry S Globulin 3.7 G/dL Invalid Interpretation Code AO ADM SS Glucose [Mass/Vol] 106 mg/dL Invalid Interpretation Code 80 - 115 mg/dL AO ADM SS Potassium [Moles/Vol] 4.0 mmol/L Invalid Interpretation Code 3.5 - 5.1 mmol/L AO ADM SS Protein [Mass/Vol] 7.6 G/dL Invalid Interpretation Code 6.4 - 8.2 G/dL AO ADM SS Sodium [Moles/Vol] 143 mmol/L Invalid Interpretation Code 136 - 145 mmol/L AO ADM SS TSH Qn 2.34 m[IU]/L Invalid Interpretation Code 0.36 - 3.74 mcIU/mL AO ADM SS Urea nitrogen [Mass/Vol] 11 mg/dL Invalid Interpretation Code 7 - 18 mg/dL AO ADM SS Urea nitrogen/Creatinine [Mass ratio] 14 ratio Invalid Interpretation Code 7 - 27 ratio AO ADM SS LABORATORYOrdered By: Cipriano Myles on 12-29-2022 Basophil, Absolute 0.0 103/mcL Invalid Interpretation Code 0.0 - 0.2 10^3/mcL AO Workflow SS Basophils/100 WBC (Bld) 0.5 % Invalid Interpretation Code 0.0 - 2.5 % AO Workflow SS Eosinophil, Absolute 0.4 103/mcL Invalid Interpretation Code 0.0 - 0.4 10^3/mcL AO Workflow SS Eosinophils/100 WBC (Bld) 4.4 % Invalid Interpretation Code 0.0 - 7.0 % AO Workflow SS Erythrocyte distribution width (RBC) [Ratio] 12.9 % Invalid Interpretation Code 11.5 - 14.5 % AO Workflow SS Hematocrit (Bld) [Volume fraction] 45.4 % Invalid Interpretation Code 37.0 - 47.0 % AO Workflow SS Hemoglobin (Bld) [Mass/Vol] 15.8 G/dL Invalid Interpretation Code 12.0 - 16.0 G/dL AO Workflow SS Lymphocyte, Absolute 3.2 103/mcL Invalid Interpretation Code 0.8 - 3.9 10^3/mcL AO Workflow SS Lymphocytes/100 WBC (Bld) 33.3 % Invalid Interpretation Code 10.0 - 50.0 % AO Workflow SS MCH (RBC) [Entitic mass] 30.2 pg Invalid Interpretation Code 27.0 - 31.2 pg AO Workflow SS MCHC 34.7 G/dL Invalid Interpretation Code 33.0 - 37.0 G/dL AO Workflow SS MCV (RBC) [Entitic vol] 86.8 fL Invalid Interpretation Code 80.0 - 94.0 fL AO Workflow SS Monocyte, Absolute 0.6 103/mcL Invalid Interpretation Code 0.2 - 1.0 10^3/mcL AO Workflow SS Monocytes/100 WBC (Bld) 6.6 % Invalid Interpretation Code 1.7 - 13.0 % AO Workflow SS Neutrophil, Absolute 5.3 103/mcL Invalid Interpretation Code 2.9 - 6.2 10^3/mcL AO Workflow SS Neutrophils/100 WBC (Bld) 55.2 % Invalid Interpretation Code 37.0 - 80.0 % AO Workflow SS Platelet mean volume (Bld) [Entitic vol] 9.3 fL Invalid Interpretation Code 7.4 - 10.4 fL AO Workflow SS Platelets (Bld) [#/Vol] 273 103/mcL Invalid Interpretation Code 130 - 400 10^3/mcL AO Workflow SS RBC (Bld) [#/Vol] 5.23 106/mcL Invalid Interpretation Code 4.20 - 5.40 10^6/mcL AO Workflow SS WBC (Bld) [#/Vol] 9.6 103/mcL Invalid Interpretation Code 4.6 - 10.8 10^3/mcL AO Workflow SS LABORATORYOrdered By: [employer] SYSTEM on 11-04-2022 DHEA-S [Mass/Vol] 55.89 ug/dL Invalid Interpretation Code 25.90 - 460.20 mcg/dL AH ADM SS E2 [Mass/Vol] 37.74 pg/mL Invalid Interpretation Code AH ADM SS Free T3 [Mass/Vol] 2.80 pg/mL Invalid Interpretation Code 2.30 - 4.00 pg/mL AO ADM SS Progesterone [Mass/Vol] 0.3 ng/mL Invalid Interpretation Code AH ADM SS Testosterone [Mass/Vol] 187.68 ng/dL Invalid Interpretation Code AH ADM SS TSH Qn 2.86 m[IU]/L Invalid Interpretation Code 0.36 - 3.74 mcIU/mL AO ADM SS Vit. D 25-Hydroxy 18.0 ng/mL Invalid Interpretation Code AO ADM SS HEMOGLOBIN A1C (POC)on 08-04 HbA1c (Bld) [Mass fraction] 7.8 % Abnormal 4.2 - 5.6 % [facility] LABORATORYOrdered By: Shaheen Kelly on 04-14-2022 Albumin BCP dye [Mass/Vol] 4.4 G/dL Invalid Interpretation Code 3.4 - 4.8 G/dL AO ADM SS Albumin/Globulin [Mass ratio] 1.2 {ratio} Invalid Interpretation Code 1.1 - 2.5 ratio AO ADM SS ALP [Catalytic activity/Vol] 90 U/L Invalid Interpretation Code 40 - 135 U/L AO ADM SS ALT With P-5'-P [Catalytic activity/Vol] 39 U/L Invalid Interpretation Code 14 - 59 U/L AO ADM SS AST With P-5'-P [Catalytic activity/Vol] 29 U/L Invalid Interpretation Code 10 - 40 U/L AO ADM SS Bilirubin [Mass/Vol] 0.6 mg/dL Invalid Interpretation Code 0.2 - 1.0 mg/dL AO ADM SS Calcium [Mass/Vol] 9.4 mg/dL Invalid Interpretation Code 8.4 - 10.2 mg/dL AO ADM SS Chloride [Moles/Vol] 99 mmol/L Invalid Interpretation Code 98 - 107 mmol/L AO ADM SS Cholesterol [Mass/Vol] 201 mg/dL Invalid Interpretation Code 0 - 200 mg/dL AO ADM SS Cholesterol in HDL [Mass/Vol] 35 mg/dL Invalid Interpretation Code 40 - 60 mg/dL AO ADM SS Cholesterol in LDL [Mass/Vol] 110 mg/dL Invalid Interpretation Code 0 - 130 mg/dL AO ADM SS CO2 [Moles/Vol] 23 mmol/L Invalid Interpretation Code 23 - 31 mmol/L AO ADM SS Creatinine [Mass/Vol] 1.05 mg/dL Invalid Interpretation Code 0.55 - 1.02 mg/dL AO ADM SS Electrolyte Balance 14.0 mEq/L Invalid Interpretation Code 4.0 - 15.0 mEq/L AO ADM SS Free T3 [Mass/Vol] 2.84 pg/mL Invalid Interpretation Code 2.30 - 4.00 pg/mL AO ADM SS Free T4 [Mass/Vol] 1.31 ng/dL Invalid Interpretation Code 0.76 - 1.46 ng/dL AO ADM SS Globulin 3.6 G/dL Invalid Interpretation Code AO ADM SS Glucose [Mass/Vol] 351 mg/dL Invalid Interpretation Code 80 - 115 mg/dL AO ADM SS Potassium [Moles/Vol] 4.3 mmol/L Invalid Interpretation Code 3.5 - 5.1 mmol/L AO ADM SS Protein [Mass/Vol] 8.0 G/dL Invalid Interpretation Code 6.4 - 8.2 G/dL AO ADM SS Sodium [Moles/Vol] 136 mmol/L Invalid Interpretation Code 136 - 145 mmol/L AO ADM SS Triglyceride [Mass/Vol] 282 mg/dL Invalid Interpretation Code 0 - 150 mg/dL AO ADM SS TSH Qn 2.77 m[IU]/L Invalid Interpretation Code 0.36 - 3.74 mcIU/mL AO ADM SS Urea nitrogen [Mass/Vol] 17 mg/dL Invalid Interpretation Code 7 - 18 mg/dL AO ADM SS Urea nitrogen/Creatinine [Mass ratio] 16 ratio Invalid Interpretation Code 7 - 27 ratio AO ADM SS LABORATORYOrdered By: Shaheen Chris on 04-14-2022 Basophil, Absolute 0.0 103/mcL Invalid Interpretation Code 0.0 - 0.2 10^3/mcL AO Workflow SS Basophils/100 WBC (Bld) 0.4 % Invalid Interpretation Code 0.0 - 2.5 % AO Workflow SS Eosinophil, Absolute 0.8 103/mcL Invalid Interpretation Code 0.0 - 0.4 10^3/mcL AO Workflow SS Eosinophils/100 WBC (Bld) 6.4 % Invalid Interpretation Code 0.0 - 7.0 % AO Workflow SS Erythrocyte distribution width (RBC) [Ratio] 12.7 % Invalid Interpretation Code 11.5 - 14.5 % AO Workflow SS Hematocrit (Bld) [Volume fraction] 49.0 % Invalid Interpretation Code 37.0 - 47.0 % AO Workflow SS Hgb 16.9 G/dL Invalid Interpretation Code 12.0 - 16.0 G/dL AO Workflow SS Lymphocyte, Absolute 3.2 103/mcL Invalid Interpretation Code 0.8 - 3.9 10^3/mcL AO Workflow SS Lymphocytes/100 WBC (Bld) 25.6 % Invalid Interpretation Code 10.0 - 50.0 % AO Workflow SS MCH (RBC) [Entitic mass] 30.2 pg Invalid Interpretation Code 27.0 - 31.2 pg AO Workflow SS MCHC 34.4 G/dL Invalid Interpretation Code 33.0 - 37.0 G/dL AO Workflow SS MCV (RBC) [Entitic vol] 87.7 fL Invalid Interpretation Code 80.0 - 94.0 fL AO Workflow SS Monocyte, Absolute 0.7 103/mcL Invalid Interpretation Code 0.2 - 1.0 10^3/mcL AO Workflow SS Monocytes/100 WBC (Bld) 5.7 % Invalid Interpretation Code 1.7 - 13.0 % AO Workflow SS Neutrophil, Absolute 7.7 103/mcL Invalid Interpretation Code 2.9 - 6.2 10^3/mcL AO Workflow SS Neutrophils/100 WBC (Bld) 61.9 % Invalid Interpretation Code 37.0 - 80.0 % AO Workflow SS Platelet 253 103/mcL Invalid Interpretation Code 130 - 400 10^3/mcL AO Workflow SS Platelet mean volume (Bld) [Entitic vol] 9.7 fL Invalid Interpretation Code 7.4 - 10.4 fL AO Workflow SS RBC 5.58 106/mcL Invalid Interpretation Code 4.20 - 5.40 10^6/mcL AO Workflow SS WBC 12.4 103/mcL Invalid Interpretation Code 4.6 - 10.8 10^3/mcL AO Workflow SS LABORATORYOrdered By: SYSTEM SYSTEM on 04-14-2022 GFR 64 ml/min/1.73sqm Invalid Interpretation Code AO Chemistry S GFR Non- 52 ml/min/1.73sqm Invalid Interpretation Code AO Chemistry S Monocyte distribution width Auto (Bld) [Entitic vol] Not Performed 1 *NA* (04/14/22 5:01 PM) Invalid Interpretation Code 0.00 - 20.00 AO Hematology S Comment on above: Result Comment: MDW testing performed only on adult ER patients between the ages of 18-89 years. OCT MACULA CIRRUS OU (BOTH E YES) [facility] Vital Signs Date Time Vital Sign Value Performing Clinician Facility 07-08-2025 14:59-0400 Body mass index (BMI) [Ratio] 31.22 kg/m2 Fam Coker MD Work Phone: [facility] 07-08-2025 14:59-0400 Body temperature 99.39 [degF] Fam Coker MD Work Phone: [facility] 07-08-2025 14:59-0400 Body weight 87.5 kg Fam Coker MD Work Phone: [facility] 07-08-2025 14:59-0400 Diastolic blood pressure 76 mm[Hg] Fam Coker MD Work Phone: [facility] 07-08-2025 14:59-0400 Heart rate 88 /min Fam Coker MD Work Phone: [facility] 07-08-2025 14:59-0400 Respiratory rate 18 /min Fam Coker MD Work Phone: [facility] 07-08-2025 14:59-0400 SaO2% (BldA) [Mass fraction] 98 % Fam Coker MD Work Phone: [facility] 07-08-2025 14:59-0400 Systolic blood pressure 128 mm[Hg] Fam Coker MD Work Phone: [facility] 06-28-2025 14:39-0400 Body height 167.4 cm [facility] SEWER MAINTENANCE SUPERVISOR.MANAGER NEWS Work Phone: [facility] 06-28-2025 14:39-0400 Body mass index (BMI) [Ratio] 31.72 kg/m2 [facility] [employer]ER MAINTENANCE SUPERVISOR.MANAGER NEWS Work Phone: [facility] 06-28-2025 14:39-0400 Body weight 88.9 kg [facility] SEWER MAINTENANCE SUPERVISOR.MANAGER NEWS Work Phone: [facility] 06-28-2025 14:39-0400 Diastolic blood pressure 82 mm[Hg] [facility] SEWER MAINTENANCE SUPERVISOR.MANAGER NEWS Work Phone: [facility] 06-28-2025 14:39-0400 Heart rate 81 /min [facility] SEWER MAINTENANCE SUPERVISOR.MANAGER NEWS Work Phone: [facility] 06-28-2025 14:39-0400 Respiratory rate 16 /min [facility] SEWER MAINTENANCE SUPERVISOR.MANAGER NEWS Work Phone: [facility] 06-28-2025 14:39-0400 SaO2% (BldA) [Mass fraction] 97 % [facility] SEWER MAINTENANCE SUPERVISOR.MANAGER NEWS Work Phone: [facility] 06-28-2025 14:39-0400 Systolic blood pressure 116 mm[Hg] [facility] SEWER MAINTENANCE SUPERVISOR.MANAGER NEWS Work Phone: [facility] 03-27-2025 15:01-0400 Body height 167.6 cm [facility] SEWER MAINTENANCE SUPERVISOR.MANAGER NEWS Work Phone: [facility] 03-27-2025 15:01-0400 Body mass index (BMI) [Ratio] 30.55 kg/m2 [facility] SEWER MAINTENANCE SUPERVISOR.MANAGER NEWS Work Phone: [facility] 03-27-2025 15:01-0400 Body weight 85.8 kg [facility] SEWER MAINTENANCE SUPERVISOR.MANAGER NEWS Work Phone: [facility] 03-27-2025 15:01-0400 Diastolic blood pressure 86 mm[Hg] [facility] SEWER MAINTENANCE SUPERVISOR.MANAGER NEWS Work Phone: [facility] 03-27-2025 15:01-0400 Heart rate 91 /min [facility] SEWER MAINTENANCE SUPERVISOR.MANAGER NEWS Work Phone: [facility] 03-27-2025 15:01-0400 Respiratory rate 16 /min [facility] SEWER MAINTENANCE SUPERVISOR.MANAGER NEWS Work Phone: [facility] 03-27-2025 15:01-0400 SaO2% (BldA) [Mass fraction] 98 % [facility] SEWER MAINTENANCE SUPERVISOR.MANAGER NEWS Work Phone: [facility] 03-27-2025 15:01-0400 Systolic blood pressure 137 mm[Hg] [facility] SEWER MAINTENANCE SUPERVISOR.MANAGER NEWS Work Phone: [facility] 03-26-2025 16:47-0400 Body mass index (BMI) [Ratio] 30.41 kg/m2 Valeriano Wormald PA-C Work Phone: [facility] 03-26-2025 16:47-0400 Body temperature 98.4 [degF] Valeriano Wormald PA-C Work Phone: [facility] 03-26-2025 16:47-0400 Body weight 85.45 kg Valeriano Wormald PA-C Work Phone: [facility] 03-26-2025 16:47-0400 Diastolic blood pressure 72 mm[Hg] Valeriano Wormald PA-C Work Phone: [facility] 03-26-2025 16:47-0400 Heart rate 90 /min Valeriano Wormald PA-C Work Phone: [facility] 03-26-2025 16:47-0400 SaO2% (BldA) [Mass fraction] 98 % Valeriano Wormald PA-C Work Phone: [facility] 03-26-2025 16:47-0400 Systolic blood pressure 128 mm[Hg] Valeriano Laurenald PA-C Work Phone: [facility] 03-18-2025 14:22-0400 Body mass index (BMI) [Ratio] 29.53 kg/m2 Krislyn Aberegg PA Work Phone: [facility] 03-18-2025 14:22-0400 Body temperature 100.71 [degF] Krislyn Aberegg PA Work Phone: [facility] 03-18-2025 14:22-0400 Body weight 83 kg Krislyn Aberegg PA Work Phone: [facility] 03-18-2025 14:22-0400 Diastolic blood pressure 72 mm[Hg] Krislyn Aberegg PA Work Phone: [facility] 03-18-2025 14:22-0400 Heart rate 106 /min Krislyn Aberegg PA Work Phone: [facility] 03-18-2025 14:22-0400 Respiratory rate 24 /min Krislyn Aberegg PA Work Phone: [facility] 03-18-2025 14:22-0400 SaO2% (BldA) [Mass fraction] 96 % Krislyn Aberegg PA Work Phone: [facility] 03-18-2025 14:22-0400 Systolic blood pressure 131 mm[Hg] Krislyn Aberegg PA Work Phone: [facility] 02-18-2025 13:07-0400 Body mass index (BMI) [Ratio] 29.53 kg/m2 Jose Luis Jung APRN.MANAGER NEWS Work Phone: [facility] 02-18-2025 13:07-0400 Body temperature 99.1 [degF] Jose Luis Jung APRN.MANAGER NEWS Work Phone: [facility] 02-18-2025 13:07-0400 Body weight 83 kg Jose Luis Fabiana DANIELS.MANAGER NEWS Work Phone: [facility] 02-18-2025 13:07-0400 Diastolic blood pressure 74 mm[Hg] Jose Luis Jung APRN.MANAGER NEWS Work Phone: [facility] 02-18-2025 13:07-0400 Heart rate 97 /min Jose Luisallen Jung APRN.MANAGER NEWS Work Phone: [facility] 02-18-2025 13:07-0400 Respiratory rate 18 /min Jose Luis Fabiana DANIELS.MANAGER NEWS Work Phone: [facility] [facility] 02-18-2025 13:07-0400 SaO2% (BldA) [Mass fraction] 96 % Jose Luis Jung APRN.MANAGER NEWS Work Phone: [facility] 02-18-2025 13:07-0400 Systolic blood pressure 114 mm[Hg] Jose Luis Jung APRN.MANAGER NEWS Work Phone: [facility] 02-15-2025 13:35-0400 Body height 167.6 cm Yared Dodd MD Work Phone: [facility] 02-15-2025 13:35-0400 Body mass index (BMI) [Ratio] 30.02 kg/m2 Yared Dodd MD Work Phone: [facility] 02-15-2025 13:35-0400 Body weight 84.37 kg Yared Dodd MD Work Phone: [facility] 02-15-2025 13:35-0400 Diastolic blood pressure 72 mm[Hg] Yared Dodd MD Work Phone: [facility] 02-15-2025 13:35-0400 Heart rate 76 /min Yared Dodd MD Work Phone: [facility] 02-15-2025 13:35-0400 Respiratory rate 18 /min Yared Dodd MD Work Phone: [facility] 02-15-2025 13:35-0400 SaO2% (BldA) [Mass fraction] 98 % Yared Dodd MD Work Phone: [facility] 02-15-2025 13:35-0400 Systolic blood pressure 118 mm[Hg] Yared Dodd MD Work Phone: [facility] 01-29-2025 14:38-0400 Diastolic blood pressure 86 mm[Hg] Phil Lawton MD Work Phone: [facility] 01-29-2025 14:38-0400 Heart rate 80 /min Phil Lawton MD Work Phone: [facility] 01-29-2025 14:38-0400 SaO2% (BldA) [Mass fraction] 97 % Phil Lawton MD Work Phone: [facility] 01-29-2025 14:38-0400 Systolic blood pressure 127 mm[Hg] Phil Lawton MD Work Phone: [facility] 01-15-2025 13:01-0500 Body height 167.6 cm Phil Lawton MD Work Phone: [facility] 01-15-2025 13:01-0500 Body mass index (BMI) [Ratio] 31.63 kg/m2 Phil Lawton MD Work Phone: [facility] 01-15-2025 13:01-0500 Body weight 88.9 kg Phil Lawton MD Work Phone: [facility] 01-15-2025 13:01-0500 Diastolic blood pressure 81 mm[Hg] Phil Lawton MD Work Phone: [facility] 01-15-2025 13:01-0500 Heart rate 82 /min Phil Lawton MD Work Phone: [facility] 01-15-2025 13:01-0500 SaO2% (BldA) [Mass fraction] 98 % Phil Lawton MD Work Phone: [facility] 01-15-2025 13:01-0500 Systolic blood pressure 120 mm[Hg] Phil Lawton MD Work Phone: [facility] 12-26-2024 17:32-0500 Body mass index (BMI) [Ratio] 32.5 kg/m2 Stevie Lane PA-C Work Phone: [facility] 12-26-2024 17:32-0500 Body temperature 97.81 [degF] Stevie Clutter PA-C Work Phone: [facility] 12-26-2024 17:32-0500 Body weight 88.6 kg Stevie Clutter PA-C Work Phone: [facility] 12-26-2024 17:32-0500 Diastolic blood pressure 70 mm[Hg] Stevie Clutter PA-C Work Phone: [facility] 12-26-2024 17:32-0500 Heart rate 80 /min Stevie Clutter PA-C Work Phone: [facility] 12-26-2024 17:32-0500 Respiratory rate 16 /min Stevie Clutter PA-C Work Phone: [facility] 12-26-2024 17:32-0500 SaO2% (BldA) [Mass fraction] 95 % Stevie Clutter PA-C Work Phone: [facility] 12-26-2024 17:32-0500 Systolic blood pressure 122 mm[Hg] Stevie Clutter PA-C Work Phone: [facility] 12-21-2024 15:43-0500 Body height 165.1 cm [facility] SEWER MAINTENANCE SUPERVISOR.MANAGER NEWS Work Phone: [facility] 12-21-2024 15:43-0500 Body mass index (BMI) [Ratio] 32.03 kg/m2 [facility] SEWER MAINTENANCE SUPERVISOR.MANAGER NEWS Work Phone: [facility] 12-21-2024 15:43-0500 Body weight 87.3 kg [facility] SEWER MAINTENANCE SUPERVISOR.MANAGER NEWS Work Phone: [facility] 12-21-2024 15:43-0500 Diastolic blood pressure 77 mm[Hg] [facility] SEWER MAINTENANCE SUPERVISOR.MANAGER NEWS Work Phone: [facility] 12-21-2024 15:43-0500 Heart rate 82 /min [facility] SEWER MAINTENANCE SUPERVISOR.MANAGER NEWS Work Phone: [facility] 12-21-2024 15:43-0500 Respiratory rate 16 /min [facility] SEWER MAINTENANCE SUPERVISOR.MANAGER NEWS Work Phone: [facility] 12-21-2024 15:43-0500 SaO2% (BldA) [Mass fraction] 97 % [facility] SEWER MAINTENANCE SUPERVISOR.MANAGER NEWS Work Phone: [facility] 12-21-2024 15:43-0500 Systolic blood pressure 117 mm[Hg] [facility] SEWER MAINTENANCE SUPERVISOR.MANAGER NEWS Work Phone: [facility] 12-11-2024 15:53-0500 Body height 165.1 cm Yared Dodd MD Work Phone: [facility] 12-11-2024 15:53-0500 Body mass index (BMI) [Ratio] 31.95 kg/m2 Yared Ddod MD Work Phone: [facility] 12-11-2024 15:53-0500 Body weight 87.09 kg Yared Dodd MD Work Phone: [facility] 12-11-2024 15:53-0500 Diastolic blood pressure 90 mm[Hg] Yared Dodd MD Work Phone: [facility] 12-11-2024 15:53-0500 Heart rate 80 /min Yared Dodd MD Work Phone: [facility] 12-11-2024 15:53-0500 Respiratory rate 16 /min Yared Dodd MD Work Phone: [facility] 12-11-2024 15:53-0500 SaO2% (BldA) [Mass fraction] 98 % Yared Dodd MD Work Phone: [facility] 12-11-2024 15:53-0500 Systolic blood pressure 138 mm[Hg] Yared Dodd MD Work Phone: [facility] 12-05-2024 15:40-0500 Body height 165.1 cm Sushil Hawkins MD Work Phone: [facility] 12-05-2024 15:40-0500 Body mass index (BMI) [Ratio] 31.9 kg/m2 Sushil Hawkins MD Work Phone: [facility] 12-05-2024 15:40-0500 Body weight 86.95 kg Sushil Hawkins MD Work Phone: [facility] 12-05-2024 15:40-0500 Diastolic blood pressure 78 mm[Hg] Sushil Hawkins MD Work Phone: [facility] 12-05-2024 15:40-0500 Heart rate 86 /min Sushil Hawkins MD Work Phone: [facility] 12-05-2024 15:40-0500 SaO2% (BldA) [Mass fraction] 98 % Sushil Hawkins MD Work Phone: [facility] 12-05-2024 15:40-0500 Systolic blood pressure 113 mm[Hg] Sushil Hawkins MD Work Phone: [facility] 10-24-2024 13:35-0500 Body mass index (BMI) [Ratio] 30.45 kg/m2 Nelly Aurin SEWER MAINTENANCE SUPERVISOR.MANAGER NEWS Work Phone: [facility] 10-24-2024 13:35-0500 Body weight 83.01 kg Nelly Aurin SEWER MAINTENANCE SUPERVISOR.MANAGER NEWS Work Phone: [facility] Comment on above: with clothes 10-24-2024 13:35-0500 Diastolic blood pressure 73 mm[Hg] Nelly Aurin SEWER MAINTENANCE SUPERVISOR.MANAGER NEWS Work Phone: [facility] 10-24-2024 13:35-0500 Heart rate 75 /min Nelly Aurin SEWER MAINTENANCE SUPERVISOR.MANAGER NEWS Work Phone: [facility] 10-24-2024 13:35-0500 SaO2% (BldA) [Mass fraction] 99 % Nelly Aurin SEWER MAINTENANCE SUPERVISOR.MANAGER NEWS Work Phone: [facility] 10-24-2024 13:35-0500 Systolic blood pressure 123 mm[Hg] Nelly Aurin SEWER MAINTENANCE SUPERVISOR.MANAGER NEWS Work Phone: [facility] 09-07-2024 15:45-0400 Body height [facility]WER MAINTENANCE SUPERVISOR.MANAGER NEWS Work Phone: [facility] 09-07-2024 15:45-0400 Body mass index (BMI) [Ratio] 32.47 kg/m2 [facility] SEWER MAINTENANCE SUPERVISOR.MANAGER NEWS Work Phone: [facility] 09-07-2024 15:45-0400 Body weight 88.5 kg [facility] SEWER MAINTENANCE SUPERVISOR.MANAGER NEWS Work Phone: [facility] 09-07-2024 15:45-0400 Diastolic blood pressure 80 mm[Hg] [facility] SEWER MAINTENANCE SUPERVISOR.MANAGER NEWS Work Phone: [facility] 09-07-2024 15:45-0400 Heart rate 89 /min [facility] SEWER MAINTENANCE SUPERVISOR.MANAGER NEWS Work Phone: [facility] 09-07-2024 15:45-0400 SaO2% (BldA) [Mass fraction] 97 % [facility] SEWER MAINTENANCE SUPERVISOR.MANAGER NEWS Work Phone: [facility] 09-07-2024 15:45-0400 Systolic blood pressure 119 mm[Hg] [facility] SEWER MAINTENANCE SUPERVISOR.MANAGER NEWS Work Phone: [facility] 07-24-2024 13:35-0400 Body mass index (BMI) [Ratio] 30.74 kg/m2 Jody Sparks SEWER MAINTENANCE SUPERVISOR.MANAGER NEWS Work Phone: [facility] 07-24-2024 13:35-0400 Body weight 87.7 kg Jody Sparks SEWER MAINTENANCE SUPERVISOR.MANAGER NEWS Work Phone: [facility] 07-24-2024 13:35-0400 Diastolic blood pressure 74 mm[Hg] Jody Sparks SEWER MAINTENANCE SUPERVISOR.MANAGER NEWS Work Phone: [facility] 07-24-2024 13:35-0400 Heart rate 74 /min Jody Wreford SEWER MAINTENANCE SUPERVISOR.MANAGER NEWS Work Phone: [facility] 07-24-2024 13:35-0400 SaO2% (BldA) [Mass fraction] 97 % Jody Sparks SEWER MAINTENANCE SUPERVISOR.MANAGER NEWS Work Phone: [facility] 07-24-2024 13:35-0400 Systolic blood pressure 126 mm[Hg] Jody Sparks SEWER MAINTENANCE SUPERVISOR.MANAGER NEWS Work Phone: [facility] 06-12-2024 09:19-0400 Body mass index (BMI) [Ratio] 31.48 kg/m2 Yared Dodd MD Work Phone: [facility] 06-12-2024 09:19-0400 Body weight 89.81 kg Yared Dodd MD Work Phone: [facility] 06-12-2024 09:19-0400 Diastolic blood pressure 76 mm[Hg] Yared Dodd MD Work Phone: [facility] 06-12-2024 09:19-0400 Heart rate 91 /min Yared Dodd MD Work Phone: [facility] 06-12-2024 09:19-0400 SaO2% (BldA) [Mass fraction] 97 % Yared Dodd MD Work Phone: [facility] 06-12-2024 09:19-0400 Systolic blood pressure 108 mm[Hg] Yared Dodd MD Work Phone: [facility] 06-07-2024 11:23-0400 Body mass index (BMI) [Ratio] 30.98 kg/m2 Jody Sparks SEWER MAINTENANCE SUPERVISOR.MANAGER NEWS Work Phone: [facility] 06-07-2024 11:23-0400 Body weight 88.4 kg Jody Sparks SEWER MAINTENANCE SUPERVISOR.MANAGER NEWS Work Phone: [facility] 06-07-2024 11:23-0400 Diastolic blood pressure 82 mm[Hg] Jody Sparks SEWER MAINTENANCE SUPERVISOR.MANAGER NEWS Work Phone: [facility] 06-07-2024 11:23-0400 Heart rate 80 /min Jody Wreford SEWER MAINTENANCE SUPERVISOR.MANAGER NEWS Work Phone: [facility] 06-07-2024 11:23-0400 SaO2% (BldA) [Mass fraction] 95 % Jodyatif Hannaeford SEWER MAINTENANCE SUPERVISOR.MANAGER NEWS Work Phone: [facility] 06-07-2024 11:23-0400 Systolic blood pressure 141 mm[Hg] Jody Cyndieford SEWER MAINTENANCE SUPERVISOR.MANAGER NEWS Work Phone: [facility] 06-07-2024 10:36-0400 Body height 168.9 cm [facility] SEWER MAINTENANCE SUPERVISOR.MANAGER NEWS Work Phone: [facility] 06-07-2024 10:36-0400 Body mass index (BMI) [Ratio] 30.91 kg/m2 [facility] SEWER MAINTENANCE SUPERVISOR.MANAGER NEWS Work Phone: [facility] 06-07-2024 10:36-0400 Body weight 88.2 kg Mary Kate Matiasiec SEWER MAINTENANCE SUPERVISOR.MANAGER NEWS Work Phone: [facility] 06-07-2024 10:36-0400 Diastolic blood pressure 82 mm[Hg] Mary Kate Kupiec SEWER MAINTENANCE SUPERVISOR.MANAGER NEWS Work Phone: [facility] 06-07-2024 10:36-0400 Heart rate 92 /min [facility] SEWER MAINTENANCE SUPERVISOR.MANAGER NEWS Work Phone: [facility] 06-07-2024 10:36-0400 SaO2% (BldA) [Mass fraction] 97 % Mary Kate Kupiec SEWER MAINTENANCE SUPERVISOR.MANAGER NEWS Work Phone: [facility] 06-07-2024 10:36-0400 Systolic blood pressure 131 mm[Hg] Mary Kate Kupiec SEWER MAINTENANCE SUPERVISOR.MANAGER NEWS Work Phone: [facility] 02-28-2024 15:35-0400 Body weight 88 kg Jody Hannaefallyson SEWER MAINTENANCE SUPERVISOR.MANAGER NEWS Work Phone: [facility] 02-28-2024 15:35-0400 Diastolic blood pressure 78 mm[Hg] Jodyatif Hannaeford SEWER MAINTENANCE SUPERVISOR.MANAGER NEWS Work Phone: [facility] 02-28-2024 15:35-0400 Heart rate 99 /min Jody Hannaeford SEWER MAINTENANCE SUPERVISOR.MANAGER NEWS Work Phone: [facility] 02-28-2024 15:35-0400 SaO2% (BldA) [Mass fraction] 95 % Jody Hannaeford SEWER MAINTENANCE SUPERVISOR.MANAGER NEWS Work Phone: [facility] 02-28-2024 15:35-0400 Systolic blood pressure 126 mm[Hg] Jody Hannaeford SEWER MAINTENANCE SUPERVISOR.MANAGER NEWS Work Phone: [facility] 02-18-2024 15:14-0400 Body weight 88.7 kg [facility] SEWER MAINTENANCE SUPERVISOR.MANAGER NEWS Work Phone: [facility] 02-18-2024 15:14-0400 Diastolic blood pressure 86 mm[Hg] Mary Kate Kupiec SEWER MAINTENANCE SUPERVISOR.MANAGER NEWS Work Phone: [facility] 02-18-2024 15:14-0400 Heart rate 78 /min Mary Kate Kupiec SEWER MAINTENANCE SUPERVISOR.MANAGER NEWS Work Phone: [facility] 02-18-2024 15:14-0400 SaO2% (BldA) [Mass fraction] 99 % [facility] Kup[facility]c SEWER MAINTENANCE SUPERVISOR.MANAGER NEWS Work Phone: [facility] 02-18-2024 15:14-0400 Systolic blood pressure 130 mm[Hg] Mary Kate Kupiec SEWER MAINTENANCE SUPERVISOR.MANAGER NEWS Work Phone: [facility] 10-18-2023 13:23-0500 Body weight 86.18 kg Yared Dodd MD Work Phone: [facility] 10-18-2023 13:23-0500 Diastolic blood pressure 80 mm[Hg] Yared Dodd MD Work Phone: [facility] 10-18-2023 13:23-0500 Heart rate 94 /min Yared Dodd MD Work Phone: [facility] 10-18-2023 13:23-0500 SaO2% (BldA) [Mass fraction] 99 % Yared Dodd MD Work Phone: [facility] 10-18-2023 13:23-0500 Systolic blood pressure 110 mm[Hg] Yared Dodd MD Work Phone: [facility] 08-23-2023 15:37-0400 Body weight 85.73 kg Jody Wreford SEWER MAINTENANCE SUPERVISOR.MANAGER NEWS Work Phone: [facility] 08-23-2023 15:37-0400 Diastolic blood pressure 71 mm[Hg] Jody Wreford SEWER MAINTENANCE SUPERVISOR.MANAGER NEWS Work Phone: [facility] 08-23-2023 15:37-0400 Heart rate 88 /min Jody Wreford SEWER MAINTENANCE SUPERVISOR.MANAGER NEWS Work Phone: [facility] 08-23-2023 15:37-0400 SaO2% (BldA) [Mass fraction] 96 % Jody Wreford SEWER MAINTENANCE SUPERVISOR.MANAGER NEWS Work Phone: [facility] 08-23-2023 15:37-0400 Systolic blood pressure 143 mm[Hg] Jody Wreford SEWER MAINTENANCE SUPERVISOR.MANAGER NEWS Work Phone: [facility] 07-16-2023 00:31-0400 Body weight 85.27 kg [facility] 07-02-2023 11:27-0400 Body height 167.64 cm [facility] 07-02-2023 11:27-0400 Body weight 85.27 kg [facility] 06-23-2023 14:13-0400 Body weight 85.18 kg [facility] 06-22-2023 13:17-0400 Body height 168.9 cm Yared Dodd MD Work Phone: [facility] 06-22-2023 13:17-0400 Body weight 84.37 kg Yared Dodd MD Work Phone: [facility] 06-22-2023 13:17-0400 Diastolic blood pressure 69 mm[Hg] Yared Dodd MD Work Phone: [facility] 06-22-2023 13:17-0400 Heart rate 92 /min Yared Dodd MD Work Phone: [facility] 06-22-2023 13:17-0400 Respiratory rate 18 /min Yared Dodd MD Work Phone: [facility] 06-22-2023 13:17-0400 SaO2% (BldA) [Mass fraction] 98 % Yared Dodd MD Work Phone: [facility] 06-22-2023 13:17-0400 Systolic blood pressure 124 mm[Hg] Yared Dodd MD Work Phone: [facility] 06-02-2023 10:39-0400 Body height 167.64 cm [facility] 06-02-2023 10:39-0400 Body weight 86.18 kg [facility] 05-06-2023 10:19-0400 Body weight 84.55 kg Nelly Aurin SEWER MAINTENANCE SUPERVISOR.MANAGER NEWS Work Phone: [facility] 05-06-2023 10:19-0400 Diastolic blood pressure 69 mm[Hg] Nelly Aurin SEWER MAINTENANCE SUPERVISOR.MANAGER NEWS Work Phone: [facility] 05-06-2023 10:19-0400 Heart rate 99 /min Nelly Aurin SEWER MAINTENANCE SUPERVISOR.MANAGER NEWS Work Phone: [facility] 05-06-2023 10:19-0400 SaO2% (BldA) [Mass fraction] 98 % Nelly Aurin SEWER MAINTENANCE SUPERVISOR.MANAGER NEWS Work Phone: [facility] 05-06-2023 10:19-0400 Systolic blood pressure 109 mm[Hg] Nelly Aurin SEWER MAINTENANCE SUPERVISOR.MANAGER NEWS Work Phone: [facility] 05-03-2023 13:16-0400 Body weight 84.37 kg Yared Dodd MD Work Phone: [facility] 05-03-2023 13:16-0400 Diastolic blood pressure 72 mm[Hg] Yared Dodd MD Work Phone: [facility] 05-03-2023 13:16-0400 Heart rate 90 /min Yared Dodd MD Work Phone: [facility] 05-03-2023 13:16-0400 Respiratory rate 18 /min Yared Dodd MD Work Phone: [facility] 05-03-2023 13:16-0400 SaO2% (BldA) [Mass fraction] 98 % Yared Dodd MD Work Phone: [facility] 05-03-2023 13:16-0400 Systolic blood pressure 98 mm[Hg] Yared Dodd MD Work Phone: [facility] 05-03-2023 09:31-0400 Body height 167.64 cm [facility] 05-03-2023 09:31-0400 Body weight 87.08 kg [facility] 05-03-2023 08:55-0400 Body mass index (BMI) [Ratio] 30.9 kg/m2 [facility] 05-03-2023 08:55-0400 Body temperature 97.7 [degF] [facility] 05-03-2023 08:55-0400 Diastolic blood pressure 85 mm[Hg] [facility] 05-03-2023 08:55-0400 Heart rate 87 /min [facility] 05-03-2023 08:55-0400 Respiratory rate 14 /min [facility] 05-03-2023 08:55-0400 SaO2% (BldA) [Mass fraction] 96 % [facility] 05-03-2023 08:55-0400 Systolic blood pressure 160 mm[Hg] [facility] 08-04-2022 15:35-0400 Body weight 90.72 kg Mary Kate Cardenasc SEWER MAINTENANCE SUPERVISOR.MANAGER NEWS Work Phone: [facility] 08-04-2022 15:35-0400 Diastolic blood pressure 103 mm[Hg] Mary Kate Kupiec SEWER MAINTENANCE SUPERVISOR.MANAGER NEWS Work Phone: [facility] 08-04-2022 15:35-0400 Heart rate 95 /min Mary Kate Kupiec SEWER MAINTENANCE SUPERVISOR.MANAGER NEWS Work Phone: [facility] 08-04-2022 15:35-0400 SaO2% (BldA) [Mass fraction] 98 % Mary Kate Kupiec SEWER MAINTENANCE SUPERVISOR.MANAGER NEWS Work Phone: [facility] 08-04-2022 15:35-0400 Systolic blood pressure 138 mm[Hg] Mary Kate Kupiec SEWER MAINTENANCE SUPERVISOR.MANAGER NEWS Work Phone: [facility] 06-04-2022 10:13-0400 Body height 168 cm Mary Kate Kupiec SEWER MAINTENANCE SUPERVISOR.MANAGER NEWS Work Phone: [facility] 06-04-2022 10:13-0400 Body weight 91.31 kg Mary Kate Kupiec SEWER MAINTENANCE SUPERVISOR.MANAGER NEWS Work Phone: [facility] 06-04-2022 10:13-0400 Diastolic blood pressure 82 mm[Hg] Mary Kate Kupiec SEWER MAINTENANCE SUPERVISOR.MANAGER NEWS Work Phone: [facility] 06-04-2022 10:13-0400 Heart rate 94 /min Mary Kate Kupiec SEWER MAINTENANCE SUPERVISOR.MANAGER NEWS Work Phone: [facility] 06-04-2022 10:13-0400 Respiratory rate 16 /min Mary Kate Kupiec SEWER MAINTENANCE SUPERVISOR.MANAGER NEWS Work Phone: [facility] 06-04-2022 10:13-0400 SaO2% (BldA) [Mass fraction] 97 % Mary Kate Kupiec SEWER MAINTENANCE SUPERVISOR.MANAGER NEWS Work Phone: [facility] 06-04-2022 10:13-0400 Systolic blood pressure 139 mm[Hg] Mary Kate Kupiec SEWER MAINTENANCE SUPERVISOR.MANAGER NEWS Work Phone: [facility] 04-24-2022 13:07-0400 Body weight 92.63 kg Mary Kate Kupiec SEWER MAINTENANCE SUPERVISOR.MANAGER NEWS Work Phone: [facility] 04-24-2022 13:07-0400 Diastolic blood pressure 103 mm[Hg] Mary Kate Kupiec SEWER MAINTENANCE SUPERVISOR.MANAGER NEWS Work Phone: [facility] 04-24-2022 [id number] Heart rate 74 /min [facility] SEWER MAINTENANCE SUPERVISOR.MANAGER NEWS Work Phone: [facility] 04-24-2022 13:07-0400 SaO2% (BldA) [Mass fraction] 96 % [facility] SEWER MAINTENANCE SUPERVISOR.MANAGER NEWS Work Phone: [facility] 04-24-2022 [id number] Systolic blood pressure 164 mm[Hg] [facility] SEWER MAINTENANCE SUPERVISOR.MANAGER NEWS Work Phone: [facility] Encounters Encounter Date Encounter Type Care Provider Facility Start: 07-08-2025 End: 07-08-2025 Office outpatient visit 25 minutes Fam Coker MD Work Phone: [facility] Comment on above: Diarrhea, unspecifie d type (Primary Dx) Start: 07-03-2025 End: 07-03-2025 Refill [facility] SEWER MAINTENANCE SUPERVISOR.MANAGER NEWS Work Phone: Endocrinology Comment on above: Refill Request Start: 07-01-2025 End: 07-03-2025 Refill Yared Dodd MD Work Phone: Cardiology Comment on above: Refill Request Start: 06-28-2025 End: 06-29-2025 ambulatory [facility] SEWER MAINTENANCE SUPERVISOR.MANAGER NEWS Work Phone: Endocrinology Comment on above: NATHANIEL REQUEST EM AIL Start: 06-28-2025 End: 06-28-2025 Patient encounter procedure [facility] SEWER MAINTENANCE SUPERVISOR.MANAGER NEWS Work Phone: Endocrinology Comment on above: Type 2 diabetes jasmin itus with diabetic microalbuminuria, with long-term current use of insulin (HCC) (Primary Dx); Type 2 diabetes mellitus with diabetic polyneuropathy, with long-term current use of insulin (HCC); Hypoglycemia due to type 2 diabetes mellitus (HCC); Nontoxic single thyroid nodule; Essential hypertension; Mixed hyperlipidemia; Obesity, Class I, BMI 30-34.9 Refill Request Start: 06-23-2025 End: 06-23-2025 ambulatory YARED DODD Facility:[facility] Start: 05-04-2025 End: 05-04-2025 Refill Mary Kate Barber SEWER MAINTENANCE SUPERVISOR.MANAGER NEWS Work Phone: Endocrinology Comment on above: Refill Request Start: 04-20-2025 End: 04-20-2025 Refill Yared Dodd MD Work Phone: Cardiology Comment on above: Refill Request Start: 04-04-2025 End: 04-04-2025 ambulatory PHIL LAWTON Facility:[facility] Start: 03-27-2025 End: 03-27-2025 Patient encounter procedure Mary Kate Barber SEWER MAINTENANCE SUPERVISOR.MANAGER NEWS Work Phone: Endocrinology Comment on above: Type 2 diabetes jasmin itus with diabetic microalbuminuria, with long-term current use of insulin (HCC) (Primary Dx); Type 2 diabetes mellitus with diabetic polyneuropathy, with long-term current use of insulin (HCC); Type 2 diabetes mellitus with diabetic nephropathy, with long-term current use of insulin (HCC); Hypoglycemia due to type 2 diabetes mellitus (HCC); Nontoxic single thyroid nodule; Essential hypertension; Mixed hyperlipidemia; Obesity, Class I, BMI 30-34.9 Start: 03-27-2025 End: 03-27-2025 ambulatory MARY KATECATHRYN CARDENAS Facility:[facility] Start: 03-26-2025 End: 03-26-2025 Patient encounter procedure Valeriano Solitario PA-C Work Phone: [facility] Comment on above: Persistent cough (Pr imary Dx) Start: 03-26-2025 End: 03-26-2025 ambulatory VALERIANO SOLITARIO Facility:[facility] Start: 03-19-2025 End: 05-19-2025 Follow-up encounter Edd Chaney MD Work Phone: [facility] Start: 03-18-2025 End: 03-18-2025 Patient encounter procedure Robert POOLE Work Phone: [facility] Comment on above: Lower resp. tract in fection (Primary Dx) Start: 03-18-2025 End: 03-18-2025 ambulatory ROBERT COLLADO Facility:[facility] Start: 03-16-2025 End: 03-16-2025 ambulatory WESTONMONA KIRKLANDRAVI SEWER MAINTENANCE SUPERVISOR-MANAGER NEWS Facility:[facility] Start: 03-16-2025 End: 03-16-2025 Patient encounter procedure WESTON KIRKLANDETLER SEWER MAINTENANCE SUPERVISOR-MANAGER NEWS [facility] Start: 03-15-2025 ambulatory ASHVIN HALENN Facility: [facility] Start: 03-15-2025 End: 03-15-2025 Subsequent hospital visit by physician Mri Transportation Bl (Lg Bore/3t) Radiology Comment on above: Left arm pain [M79.6 02] Start: 02-21-2025 End: 02-21-2025 ambulatory ASHVIN MUNGUIA [facility] Start: 02-18-2025 End: 02-18-2025 ambulatory DAVID Rossy KINGSLEY Facility:[facility] Start: 02-18-2025 End: 02-18-2025 Patient encounter procedure Jose Luis Jung APRN.MANAGER NEWS Work Phone: [facility] Comment on above: URI, acute (Primary Dx); Sore throat; SOB (shortness of breath); Acute cough Start: 02-15-2025 End: 02-15-2025 Patient encounter procedure Yared Dodd MD Work Phone: 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 Cardiology Christine Comment on above: Patient Update; Justowriter Operator - Other Start: 01-28-2025 End: 01-29-2025 Refill Mary Kate Barber APRN.MANAGER NEWS Work Phone: Endocrinology Comment on above: Refill Request Start: 01-25-2025 End: 01-25-2025 Orders Only Phil Lawton MD Work Phone: [facility] Comment on above: Arm mass, left (Prim pelon Dx) Start: 01-19-2025 ambulatory SANDY BAEZ Facility: [facility] Start: 01-19-2025 End: 01-19-2025 Subsequent hospital visit by physician Sandy Baez MD Work Phone: [facility] Comment on above: Arm mass, left [R22. 32] Start: 01-15-2025 End: 01-15-2025 E-mail encounter from caregiver Maranda Duque PhD Ophthalmology Start: 01-15-2025 End: 01-15-2025 ambulatory Maranda Duque PhD Ophthalmology Comment on above: ERG testing Start: 01-15-2025 End: 01-15-2025 Office outpatient new 45 minutes Phil Lawton MD Work Phone: General Surgery Comment on above: Arm mass, left (Prim pelon Dx) Start: 01-04-2025 End: 01-04-2025 ambulatory YARED DODD Facility:[facility] Start: 01-04-2025 End: 01-04-2025 ambulatory MOLLY MURRIETA Facility:[facility] Start: 01-02-2025 End: 01-03-2025 Refill Yared Dodd MD Work Phone: Cardiology Comment on above: Refill Request Start: 12-26-2024 End: 12-26-2024 ambulatory DAVID WYNN Facility:[facility] Start: 12-26-2024 End: 12-26-2024 Office outpatient visit [address] PA-C Work Phone: [facility] Comment on above: Herpes zoster withou t complications (Primary Dx) Start: 12-26-2024 End: 01-03-2025 Telephone encounter Mary Kate Barber APRN.CNP Work Phone: Endocrinology Comment on above: PA--GLUCOSE TEST STR IPS Appointment Start: 12-21-2024 End: 12-21-2024 ambulatory MARY KATE BARBER Facility:[facility] Start: 12-21-2024 End: 12-21-2024 Patient encounter procedure Mary Kate Barber APRN.CNP Work Phone: Endocrinology Comment on above: Type 2 diabetes jasmin itus with diabetic microalbuminuria, with long-term current use of insulin (HCC) (Primary Dx); Type 2 diabetes mellitus with diabetic polyneuropathy, with long-term current use of insulin (HCC); Type 2 diabetes mellitus with diabetic nephropathy, with long-term current use of insulin (HCC); Hypoglycemia due to type 2 diabetes mellitus (HCC); Nontoxic single thyroid nodule; Essential hypertension; Mixed hyperlipidemia; Obesity, Class I, BMI 30-34.9 Start: 12-11-2024 End: 12-11-2024 ambulatory YARED DODD Facility:[facility] Start: 12-11-2024 End: 12-11-2024 Patient encounter procedure Yared Dodd MD Work Phone: Cardiology Comment on above: 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 32] Start: 12-05-2024 End: 12-05-2024 ambulatory SELF Facility:[facility] Start: 12-05-2024 End: 12-05-2024 Patient encounter procedure Sushil Hawkins MD Work Phone: General Surgery Comment on above: Arm mass, left (Prim pelon Dx) Start: 10-24-2024 End: 10-24-2024 Emergency department patient visit [facility] Facility:[facility] Start: 10-24-2024 End: 10-25-2024 Telephone encounter Lilia Obregon PA-C Work Phone: Orthopaedics Comment on above: Appointment (Please call pt after 130 tomorrow) Start: 10-24-2024 End: 10-24-2024 Patient encounter procedure Nelly Brown APRN.CNP Work Phone: Cardiology Comment on above: Chronic systolic con gestive heart failure (HCC) (Primary Dx); Cardiomyopathy, ischemic; Primary hypertension; Mixed hyperlipidemia Start: 10-24-2024 End: 10-24-2024 [facility] Start: 10-23-2024 End: 10-23-2024 Patient encounter procedure Lilia Obregon PA-C Work Phone: Orthopaedics Comment on above: Chronic pain in righ t shoulder (Primary Dx); Arm mass, left Start: 10-23-2024 End: 10-23-2024 ambulatory [facility] Facility:[facility] Start: 10-23-2024 End: 10-23-2024 Subsequent hospital visit by physician Radio General Radha Aguilar Work Phone: Radiology Comment on above: Pain [R52] Start: 10-19-2024 End: 10-19-2024 Refill Mesfin Perrin MD Work Phone: Ophthalmology Comment on above: Refill Request Start: 10-17-2024 End: 10-17-2024 Telephone encounter Lilia Obregon PA-C Work Phone: Orthopaedics Comment on above: Appointment Conflict Start: 10-05-2024 End: 10-05-2024 Refill Mary Kate Barber APRN.MANAGER NEWS Work Phone: Endocrinology Comment on above: Refill Request Start: 09-26-2024 End: 09-26-2024 E-mail encounter from caregiver Jody Sparks SHLOMO Work Phone: Cardiology Start: 09-26-2024 End: 09-26-2024 Patient encounter procedure Jody Sparks JEREMIAH.SHANNON Work Phone: Cardiology Comment on above: Appointment Start: 09-25-2024 End: 09-25-2024 Orders Only Lilia Obregon PA-C Work Phone: Appointment Center Comment on above: Pain (Primary Dx) Start: 09-18-2024 End: 09-22-2024 ambulatory MAYKEL HOWE APRN-SHANNON Facility:[facility] Start: 09-18-2024 End: 09-22-2024 Outreach Lab MAYKEL HOWE APRN-MANAGER NEWS [facility] Start: 09-07-2024 End: 09-07-2024 ambulatory [facility] Facility:[facility] Start: 09-07-2024 End: 09-07-2024 Patient encounter procedure Mary Kate Barber APRN.MANAGER NEWS Work Phone: Endocrinology Comment on above: Type 2 diabetes jasmin itus with diabetic microalbuminuria, with long-term current use of insulin (HCC) (Primary Dx); Type 2 diabetes mellitus with diabetic polyneuropathy, with long-term current use of insulin (HCC); Type 2 diabetes mellitus with diabetic nephropathy, with long-term current use of insulin (HCC); Hypoglycemia due to type 2 diabetes mellitus (HCC); Nontoxic single thyroid nodule; Essential hypertension; Mixed hyperlipidemia; Obesity, Class I, BMI 30-34.9 Start: 08-25-2024 End: 08-25-2024 Telephone encounter Mary Kate Barber APRN.MANAGER NEWS Work Phone: Endocrinology Comment on above: Patient Update Start: 08-23-2024 End: 08-23-2024 [facility] Facility[facility] Start: 08-23-2024 End: 08-23-2024 Patient encounter procedure Mesfin Perrin MD Work Phone: Ophthalmology Comment on above: Dry eye syndrome of both eyes (Primary Dx); Pseudophakia; Type 2 diabetes mellitus with both eyes affected by mild nonproliferative retinopathy without macular edema, with long-term current use of insulin (HCC); Other chronic allergic conjunctivitis of both eyes Start: 07-24-2024 End: 07-24-2024 Patient encounter procedure Jody Sparks APRN.MANAGER NEWS Work Phone: Cardiology Comment on above: Chronic systolic con gestive heart failure (HCC) (Primary Dx); Cardiomyopathy, ischemic; Primary hypertension Start: 07-24-2024 End: 07-24-2024 ambulatory JODY SPARKS Facility:[facility] Start: 07-06-2024 End: 07-07-2024 ambulatory Mary Kate Barber APRN.MANAGER NEWS Work Phone: Endocrinology Comment on above: Dr Kennedy Start: 07-06-2024 End: 07-06-2024 Telephone encounter Yared Dodd MD Work Phone: [facility] Cardiology Christine Comment on above: Results Start: 06-28-2024 End: 09-19-2024 ambulatory ADITYA CARRILLO SEWER MAINTENANCE SUPERVISOR-MANAGER NEWS Facility:[facility] Start: 06-28-2024 End: 09-19-2024 Physical therapy management ADITYA CARRILLO SEWER MAINTENANCE SUPERVISOR-MANAGER NEWS [facility] Start: 06-16-2024 End: 06-16-2024 ambulatory DAVID WYNN Facility:[facility] Start: 06-16-2024 End: 06-16-2024 Patient encounter procedure DAVID WYNN [facility] Start: 06-14-2024 ambulatory [facility] Endocrinol yasmin Comment on above: Mounjaro Start: 06-14-2024 E-mail encounter terri arndt caregiver [facility] Provider Endocrinology Start: 06-14-2024 Telephone encounter Mary Kate lezama APRN.MANAGER NEWS Work Phone: Endocrinology Comment on above: PA--Mounjaro 2.5mg/0 .5ml AND 5mg/0.5ml Start: 06-13-2024 Refill Mesfin Perrin MD Work Phone: Ophthalmology Comment on above: Refill Request Start: 06-12-2024 End: 06-12-2024 Patient encounter procedure Yared Dodd MD Work Phone: Cardiology Comment on above: 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) (Primary Dx); Cardiomyopathy, ischemic; Chronic systolic congestive heart failure (HCC); Essential hypertension; Mixed hyperlipidemia; Pericardial effusion; Statin intolerance Start: 06-08-2024 Refill Mary Kate escobedo APRN.MANAGER NEWS Work Phone: Endocrinology Comment on above: Med Change Request Start: 06-07-2024 End: 06-07-2024 ambulatory JODY SPARKS Facility:[facility] Start: 06-07-2024 End: 06-07-2024 Patient encounter procedure Jody Sparks SEWER MAINTENANCE SUPERVISOR.MANAGER NEWS Work Phone: Cardiology Comment on above: Chronic systolic con gestive heart failure (HCC) (Primary Dx); Cardiomyopathy, ischemic; Primary hypertension Type 2 diabetes jasmin itus with diabetic microalbuminuria, with long-term current use of insulin (HCC) (Primary Dx); Type 2 diabetes mellitus with diabetic polyneuropathy, with long-term current use of insulin (HCC); Hypoglycemia due to type 2 diabetes mellitus (HCC); Nontoxic single thyroid nodule; Essential hypertension; Mixed hyperlipidemia; Obesity, Class I, BMI 30-34.9; Type 2 diabetes mellitus with stage 3a chronic kidney disease, with long-term current use of insulin (HCC) Start: 05-24-2024 End: 05-24-2024 Patient encounter procedure Mesfin Perrin MD Work Phone: Ophthalmology Comment on above: Dry eye syndrome of both eyes (Primary Dx); Pseudophakia; Type 2 diabetes mellitus with both eyes affected by mild nonproliferative retinopathy without macular edema, with long-term current use of insulin (HCC); Other chronic allergic conjunctivitis of both eyes Start: 05-03-2024 Refill Yared diallo MD Work Phone: Cardiology Comment on above: Refill Request Start: 04-12-2024 End: 04-12-2024 ambulatory [facility] Facility: Start: 04-12-2024 End: 04-12-2024 Patient encounter procedure [facility] Start: 03-18-2024 Refill Mesfin Perrin MD Work Phone: Ophthalmology Comment on above: Med Change Request Start: 03-14-2024 Telephone encounter Mary Kate lezama SEWER MAINTENANCE SUPERVISOR.MANAGER NEWS Work Phone: Endocrinology Comment on above: Quantity Switch Start: 03-13-2024 Orders Only Mary Kate escobedo SEWER MAINTENANCE SUPERVISOR.MANAGER NEWS Work Phone: Cardiology Start: 02-28-2024 End: 02-29-2024 ambulatory [facility] Facility:[facility] Start: 02-28-2024 End: 02-28-2024 Patient encounter procedure Jody Sparks SEWER MAINTENANCE SUPERVISOR.MANAGER NEWS Work Phone: Cardiology Comment on above: Chronic systolic con gestive heart failure (HCC) (Primary Dx); Cardiomyopathy, ischemic; Primary hypertension Start: 02-23-2024 End: 02-23-2024 Patient encounter procedure Mesfin Perrin MD Work Phone: Ophthalmology Comment on above: Dry eye syndrome of both eyes (Primary Dx); Pseudophakia; Other chronic allergic conjunctivitis of both eyes; Type 2 diabetes mellitus with both eyes affected by mild nonproliferative retinopathy without macular edema, with long-term current use of insulin (HCC) Start: 02-18-2024 End: 02-18-2024 Patient encounter procedure Mary Kate Barber SEWER MAINTENANCE SUPERVISOR.MANAGER NEWS Work Phone: Endocrinology Comment on above: 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, 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) (Primary Dx); Type 2 diabetes mellitus with diabetic polyneuropathy, with long-term current use of insulin (HCC); Hypoglycemia due to type 2 diabetes mellitus (HCC); Nontoxic single thyroid nodule; Essential hypertension; Mixed hyperlipidemia; Obesity, Class I, BMI 30-34.9 Start: 01-19-2024 Refill Yared diallo MD Work Phone: Cardiology Comment on above: Refill Request Start: 01-14-2024 Refill Mary Kate escobedo APRN.MANAGER NEWS Work Phone: Endocrinology Comment on above: Refill Request Start: 01-11-2024 ambulatory Mary Kate escobedo SEWER MAINTENANCE SUPERVISOR.MANAGER NEWS Work Phone: Endocrinology Comment on above: Meds Start: 10-18-2023 End: 10-18-2023 Patient encounter procedure Yared Dodd MD Work Phone: Cardiology Comment on above: 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 Cardiology Christine Comment on above: Surgery Start: 09-29-2023 ambulatory Yared diallo MD Work Phone: [facility] Start: 09-21-2023 Telephone encounter Yared Dodd MD Work Phone: Cardiology Comment on above: Appointment Start: 08-25-2023 ambulatory [facility] Facility :[facility] Start: 08-23-2023 End: 08-23-2023 Patient encounter procedure Jody Sparks SEWER MAINTENANCE SUPERVISOR.MANAGER NEWS Work Phone: Cardiology Comment on above: Chronic systolic con gestive heart failure (HCC) (Primary Dx); Cardiomyopathy, ischemic; Primary hypertension Start: 08-13-2023 Telephone encounter Nelly asif SEWER MAINTENANCE SUPERVISOR.MANAGER NEWS Work Phone: Cardiology Comment on above: Returning Patient's Call Appointment Start: 08-06-2023 End: 08-15-2023 ambulatory [facility] Facility:[facility] Start: 08-06-2023 End: 08-14-2023 ambulatory [facility] Work Phone: Start: 08-06-2023 End: 08-14-2023 Discharged Recurring [facility] Work Phone: Start: 08-06-2023 Telephone encounter Mary Kate lezama SEWER MAINTENANCE SUPERVISOR.MANAGER NEWS Work Phone: Endocrinology Comment on above: PA--Tresiba Flextouc h [address] Start: 08-02-2023 Refill Mary Kate escobedo SEWER MAINTENANCE SUPERVISOR.MANAGER NEWS Work Phone: Endocrinology Comment on above: Med Change Request Start: 08-01-2023 Refill Mary Kate escobedo SEWER MAINTENANCE SUPERVISOR.MANAGER NEWS Work Phone: Endocrinology Comment on above: Refill Request Start: 07-29-2023 Refill Mary Kate escobedo SEWER MAINTENANCE SUPERVISOR.MANAGER NEWS Work Phone: Endocrinology Comment on above: Refill Request Start: 07-26-2023 ambulatory Jose Antonio Manjarrez Facility:[facility] Start: 07-14-2023 End: 07-16-2023 ambulatory [facility] Facility:[facility] Start: 07-14-2023 End: 07-15-2023 ambulatory [facility] Work Phone: Start: 07-14-2023 End: 07-15-2023 Discharged Recurring [facility] Work Phone: Start: 07-13-2023 Refill Yared diallo MD Work Phone: Cardiology Comment on above: Refill Request Start: 07-07-2023 Refill Yared diallo MD Work Phone: Cardiology Comment on above: Refill Request Start: 06-23-2023 End: 07-16-2023 ambulatory Jose Antonio Manjarrez Facility:[facility] Start: 06-23-2023 End: 07-15-2023 Discharged Recurring [facility] Work Phone: Start: 06-22-2023 End: 06-22-2023 Patient encounter procedure Yared Dodd MD Work Phone: [facility] Christine Comment on above: 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) (Primary Dx); Cardiomyopathy, ischemic; Chronic systolic congestive heart failure (HCC); Essential hypertension; Mixed hyperlipidemia; Abnormal echocardiogram Start: 06-21-2023 Telephone encounter Yared Dodd MD Work Phone: Cardiology Comment on above: Appointment Start: 06-14-2023 End: 06-15-2023 ambulatory Yared Pelham Facility:[facility] Start: 06-14-2023 End: 06-14-2023 ambulatory [facility] Work Phone: Start: 06-14-2023 End: 06-14-2023 Discharged Recurring [facility] Work Phone: Start: 06-13-2023 Refill Yared diallo MD Work Phone: Cardiology Comment on above: Refill Request Start: 06-01-2023 MC Get Medical Advice Mary Kate Barber APRN.MANAGER NEWS Work Phone: Endocrinology Comment on above: Insulin refill Start: 05-14-2023 End: 05-15-2023 ambulatory Yared Pelham Facility:[facility] Start: 05-14-2023 End: 05-14-2023 Discharged Recurring [facility] Work Phone: Start: 05-07-2023 Registered Recurring [facility] Start: 05-06-2023 End: 05-06-2023 Patient encounter procedure Nelly Brown APRN.CNP Work Phone: Cardiology Comment on above: Chronic systolic con gestive heart failure (HCC) (Primary Dx); Cardiomyopathy, ischemic; Primary hypertension; Mixed hyperlipidemia Start: 05-03-2023 End: 05-03-2023 ambulatory Yared Dodd [facility] Work Phone: Start: 05-03-2023 End: 05-03-2023 Patient encounter procedure Yared Dodd MD Work Phone: Cardiology Comment on above: 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 Cardiology Christine Comment on above: Patient Update Start: 04-19-2023 End: 04-19-2023 Nursing evaluation of patient and report Nurse Card Ch[facility] Comment on above: Congestive heart flakita lure, unspecified HF chronicity, unspecified heart failure type (HCC) [I50.9 (ICD-10-CM)] (Primary Dx) Start: 04-16-2023 Telephone encounter Yared Dodd MD Work Phone: [facility] Cardiology Christine Comment on above: Orders Start: 04-14-2023 Telephone encounter Su Moser APRN.MANAGER NEWS Work Phone: [facility] Cardiology Christine Comment on above: Appointment Orders; ak C appt contact Start: 03-10-2023 Refill Mary Kate escobedo APRN.MANAGER NEWS Work Phone: Endocrinology Comment on above: Refill Request Start: 03-02-2023 Refill Mary Kate escobedo SEWER MAINTENANCE SUPERVISOR.MANAGER NEWS Work Phone: Endocrinology Comment on above: Refill Request Start: 01-21-2023 Refill Servando Burnett MD Work Phone: Gastroenterology Comment on above: Refill Request Start: 01-01-2023 ambulatory Mary aKte escobedo SEWER MAINTENANCE SUPERVISOR.MANAGER NEWS Work Phone: Endocrinology Comment on above: Procedure &Meds Start: 12-30-2022 Telephone encounter Mary Kate lezama SEWER MAINTENANCE SUPERVISOR.MANAGER NEWS Work Phone: Endocrinology Comment on above: Medication Question Start: 12-29-2022 Telephone encounter Servando Draper MD Work Phone: Gastroenterology Comment on above: Orders Start: 12-29-2022 End: 12-29-2022 Patient encounter procedure DAVID WYNN DO [facility] Start: 12-29-2022 End: 12-29-2022 ambulatory Servando Reece MD Work Phone: Gastroenterology Comment on above: Gastroesophageal ref lux disease without esophagitis; Diverticulosis Start: 12-29-2022 End: 12-29-2022 Telemedicine consultation with patient Servando Reece MD Work Phone: [facility] Start: 12-24-2022 Orders Only Mary Kate escobedo SEWER MAINTENANCE SUPERVISOR.MANAGER NEWS Work Phone: Endocrinology Start: 12-04-2022 Telephone encounter Mary Kate lezama SEWER MAINTENANCE SUPERVISOR.MANAGER NEWS Work Phone: Endocrinology Comment on above: Results Start: 11-20-2022 End: 11-20-2022 Patient encounter procedure JONY GNA DO [facility] Start: 11-04-2022 End: 11-04-2022 Patient encounter procedure SOFIYA THURMAN SEWER MAINTENANCE SUPERVISOR-CNM [facility] Start: 10-04-2022 Refill Mary Kate escobedo SEWER MAINTENANCE SUPERVISOR.MANAGER NEWS Work Phone: Endocrinology Comment on above: Refill Request Start: 08-05-2022 Telephone encounter Mary Kate lezama SEWER MAINTENANCE SUPERVISOR.MANAGER NEWS Work Phone: Endocrinology Comment on above: Justowriter Operator - O ther Start: 08-04-2022 End: 08-04-2022 Patient encounter procedure Mary Kate Barber SEWER MAINTENANCE SUPERVISOR.MANAGER NEWS Work Phone: Endocrinology Comment on above: 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, 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) (Primary Dx); Type 2 diabetes mellitus with diabetic polyneuropathy, with long-term current use of insulin (HCC); Essential hypertension; Mixed hyperlipidemia; Class 1 obesity with serious comorbidity and body mass index (BMI) of 32.0 to 32.9 in adult, unspecified obesity type; Tremor; Gastroesophageal reflux disease without esophagitis; Diverticulosis Start: 06-04-2022 End: 06-04-2022 Patient encounter procedure Mary Kate Barber SEWER MAINTENANCE SUPERVISOR.MANAGER NEWS Work Phone: Endocrinology Comment on above: 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, 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) (Primary Dx); Type 2 diabetes mellitus with diabetic polyneuropathy, with long-term current use of insulin (HCC); Essential hypertension; Mixed hyperlipidemia; Class 1 obesity with serious comorbidity and body mass index (BMI) of 32.0 to 32.9 in adult, unspecified obesity type Start: 05-21-2022 Telephone encounter Mary Kate lezama SEWER MAINTENANCE SUPERVISOR.MANAGER NEWS Work Phone: Endocrinology Comment on above: Results Start: 05-11-2022 End: 05-11-2022 Patient encounter procedure DAVID WYNN [facility] Start: 05-08-2022 ambulatory Mary Kate escobedo APRN.CNP Work Phone: Endocrinology Comment on above: Change to Tresiba Start: 04-27-2022 Telephone encounter Mary Kate lezama APRN.SHANNON Work Phone: Endocrinology Comment on above: PA Tesiba 200 Units/ mL Start: 04-25-2022 Refill Mary Kate escobedo APRN.SHANNON Work Phone: Endocrinology Comment on above: Refill Request Start: 04-24-2022 End: 04-24-2022 Patient encounter procedure Mary Kate Kupiec SEWER MAINTENANCE SUPERVISOR.MANAGER NEWS Work Phone: Endocrinology Comment on above: 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, 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) (Primary Dx); Type 2 diabetes mellitus with diabetic polyneuropathy, with long-term current use of insulin (HCC); Essential hypertension; Mixed hyperlipidemia; Class 1 obesity with serious comorbidity and body mass index (BMI) of 32.0 to 32.9 in adult, unspecified obesity type Start: 04-14-2022 End: 04-14-2022 Patient encounter procedure DAVID WYNN DO [facility] Start: 04-04-2022 Refill Mary Kate Cardenas c SEWER MAINTENANCE SUPERVISOR.MANAGER NEWS Work Phone: Endocrinology Comment on above: Refill Request Procedures Date Procedure Procedure Detail Performing Clinician Start: 06-28-2025 Hemoglobin A1c/Hemoglobin.total in Blood Mary Kate Silvestreiec SEWER MAINTENANCE SUPERVISOR.MANAGER NEWS Work Phone: Start: 03-27-2025 Hemoglobin A1c/Hemoglobin.total in Blood Mary Kate Kupiec SEWER MAINTENANCE SUPERVISOR.MANAGER NEWS Work Phone: Start: 03-15-2025 Mri any jt upper extremity w/contrast matrl Ashvin Munguia PA-C Work Phone: Start: 02-18-2025 INFLUENZA A&B MOLECULAR (POC) Jose Luis Jung APRN.[facility] Work Phone: Start: 02-18-2025 COVID-19 MOLECULAR (POC) Jose Luis Jung APRN.MANAGER NEWS Work Phone: Start: 02-18-2025 STREP A MOLECULAR (POC) Jose Luis Jung APRN.MANAGER NEWS Work Phone: Start: 02-05-2025 Myocardial spect multiple studies Yared Dodd MD Work Phone: Start: 01-19-2025 Biopsy muscle percutaneous needle Phil Lawton MD Work Phone: Start: 12-21-2024 Hemoglobin A1c/Hemoglobin.total in Blood Mary Kate Kupiec SEWER MAINTENANCE SUPERVISOR.MANAGER NEWS Work Phone: Start: 10-23-2024 Radex shoulder complete minimum 2 views Lilia Obregon PA-C Work Phone: Start: 09-07-2024 Hemoglobin A1c/Hemoglobin.total in Blood [facility] SEWER MAINTENANCE SUPERVISOR.MANAGER NEWS Work Phone: Start: 06-07-2024 Gluc bld gluc mntr dev cleared fda spec home use [facility] Provider Start: 06-07-2024 Hemoglobin A1c/Hemoglobin.total in Blood [facility] SEWER MAINTENANCE SUPERVISOR.MANAGER NEWS Work Phone: Start: 02-23-2024 Computerized ophthalmic imaging retina Mesfin Perrin MD Work Phone: Start: 02-18-2024 Hemoglobin A1c/Hemoglobin.total in Blood [facility] SEWER MAINTENANCE SUPERVISOR.MANAGER NEWS Work Phone: Start: 08-04-2022 Hemoglobin A1c/Hemoglobin.total in Blood [facility] SEWER MAINTENANCE SUPERVISOR.MANAGER NEWS Work Phone: Appendectomy DAVID WYNN [facility] Appendectomy Appendectomy( Confirmed ) DAVID MUNROESAY [employer] Tans Back structure, excl uding neck (body structure) DAVID WYNN [employer] Cholecystectomy DAVID THOMAS TACOS DO Hysterectomy DAVID MUNROEBLOVES Hysterectomy Hysterectomy( Confirmed ) DAVID WYNN [employer] Incision of gallbladder Cholecys totomy( Confirmed ) DAVID WYNN [employer] Sinus (morphologic abnormality) DAVID WYNN [employer] Plan of Treatment Date Care Activity Detail Author Start: 06-23-2026 Hepatitis B surface antibody level LDL Cholesterol [facility] Start: 03-26-2026 BP Controlled (<130/80) BP Controlled (<130/80) [facility] in Start: 02-18-2026 BP Controlled (<130/80) BP Controlled (<130/80) [facility] Start: 02-15-2026 BP Controlled (<130/80) BP Controlled (<130/80) [facility] Start: 01-04-2026 Glaucoma screening Dilated Retinal Exam [facility] Start: 01-04-2026 Hepatitis B surface antibody level LDL Cholesterol [facility] Start: 12-26-2025 BP Controlled (<130/80) BP Controlled (<130/80) [facility] Start: 12-21-2025 BP Controlled (<130/80) BP Controlled (<130/80) [facility] Start: 12-05-2025 BP Controlled (<130/80) BP Controlled (<130/80) [facility] Start: 10-24-2025 BP Controlled (<130/80) BP Controlled (<130/80) [facility] Start: 10-09-2025 End: 10-09-2025 Patient encounter procedure 10/09/2025 3:15 PM EST Office Visit Endocrinology [address] [address] Mary Kate Barber APRN.MANAGER NEWS [address] [address] 3m follow up Endocrinology Comment on above: 3m follow up Start: 09-28-2025 Hemoglobin A1c measurement HbA1C [facility] Start: 09-27-2025 Hemoglobin A1c measurement HbA1C [facility] Start: 09-03-2025 End: 09-03-2025 Patient encounter procedure 09/03/2025 4:00 PM EDT Office Visit Cardiology [address] [place] [address] Yared Dodd MD [address] [place] [address] [place] [address] 6 month follow up Cardiology Comment on above: 6 month follow up Start: 08-23-2025 End: 08-23-2025 Patient encounter procedure 08/23/2025 4:00 PM EDT Office Visit [facility] [address] [place] [address] Yared Dodd MD [address] [place] [address] [place] [address] 6 month f/u. dlm [facility] [place] Comment on above: 6 month f/u. dlm Start: 07-24-2025 BP Controlled (<130/80) BP Controlled (<130/80) [facility] Start: 07-16-2025 Influenza vaccination Influ[facility] Vaccine [facility] Start: 06-28-2025 End: 06-28-2025 Patient encounter procedure 06/28/2025 2:45 PM EDT Office Visit Endocrinology [address] [address] Mary Kate Barber APRN.MANAGER NEWS 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 Mixed hyperlipidemia Expected: 06/18/2025, Expires: 02/13/2026 [facility] Work Phone: Comment on above: Expected: 06/18/2025, Expires: 6 Start: 06-18-2025 End: 02-13-2026 Lipid 1996 panel - Serum or Plasma LIPID PANEL, FASTING Lab Routine Mixed hyperlipidemia Expected: 06/18/2025, Expires: 02/13/2026 [facility] Comment on above: Expected: 06/18/2025, Expires: 6 Start: 06-12-2025 BP Controlled (<130/80) BP Controlled (<130/80) [facility] Start: 06-07-2025 Diabetic foot examination Diabetic Foot Exam [facility] Start: 04-12-2025 Hepatitis B screening Urine Albumin:Creatinine Ratio [facility] Start: 04-04-2025 End: 04-04-2025 Patient encounter procedure 04/04/2025 3:45 PM EDT Office Visit [facility] [address], [facility] 3rd [place] [address] Phil Lawton MD [address] [place] [address] (Fax) Follow up-MRI results [facility] Comment on above: Follow up-MRI results Start: 03-29-2025 End: 03-29-2025 Patient encounter procedure 03/29/2025 2:15 PM EDT Office Visit [facility] [address] [place] [address] Molly Murrieta MD, PhD [address] [place] [address] *DFE/ OCT/OCTa both eyes- full exam. Ophthalmology Comment on above: *DFE/ OCT/OCTa both eyes- full exam. Start: 03-27-2025 End: 03-27-2025 Patient encounter procedure 03/27/2025 3:15 PM EDT Office Visit Endocrinology [address] [address] Mary Kate Barber, SEWER MAINTENANCE SUPERVISOR.MANAGER NEWS [address] [address] 3-4 month follow up Endocrinology Comment on above: 3-4 month follow up Start: 03-22-2025 End: 03-22-2025 Patient encounter procedure 03/22/2025 3:45 PM EDT Office Visit Endocrinology [address] [address] Mary Kate Barber, SEWER MAINTENANCE SUPERVISOR.MANAGER NEWS [address] [address] 3-4 month follow up Endocrinology Comment on above: 3-4 month follow up Start: 03-20-2025 Hemoglobin A1c measurement HbA1C [facility] Start: 03-08-2025 Hemoglobin A1c measurement HbA1C [facility] Start: 02-27-2025 BP Controlled (<130/80) BP Controlled (<130/80) [facility] Start: 02-22-2025 End: 02-22-2025 Patient encounter procedure 02/22/2025 2:45 PM EDT Office Visit [facility] [address] [place] [address] Shawna Jacobs, OD [address] [place] [address] 6 MTH F/U Ophthalmology Comment on above: 6 MTH F/U Start: 02-22-2025 Glaucoma screening Dilated Retinal Exam [facility] Start: 02-21-2025 End: 02-21-2025 Patient encounter procedure 02/21/2025 3:00 PM EDT Office Visit [facility] 1 [facility] 3rd [address] [place], [place] [phone] Ashvin Munguia PA-C [address] [place], [place] [phone] Post op Arm Mass [facility] Comment on above: Post op Arm Mass Start: 02-12-2025 End: 02-12-2025 Nursing evaluation of patient and report 02/12/2025 8:15 AM EDT Nurse Visit Cardiology [address] [place] [address] Wstr, Nurse Card [address] [place] [address] 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) [I25.118] Cardiology Comment on above: 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) [I25.118] Start: 02-12-2025 End: 02-12-2025 Patient encounter procedure Nuclear Medicine Comment on above: 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) [I25.118] Start: 02-09-2025 End: 02-09-2025 Admission to same day surgery center 02/09/2025 11:15 AM EDT - 02/09/2025 1:30 PM EDT [facility] [address] [place] [address] Phil Lawton MD [facility] [place], [place] [phone] (Fax) WIDE LOCAL EXCISION OF L ARM MASS 5 CM [facility] Comment on above: WIDE LOCAL EXCISION OF L ARM MASS 5 CM Start: 02-09-2025 End: 02-09-2025 Exc b9 lesion mrgn xcp sk tg t/a/l >4.0 cm EXCISION BENIGN CYST/MASS LESION ABDOMEN OVER 4CM Arm mass, left 02/09/2025 11:15 AM EDT [facility] Start: 02-09-2025 Subsequent hospital visit by physician 02/09/2025 11:15 AM EDT Hospital Encounter [facility] [place] [address] Phil Lawton MD [address] [facility] [place], [place] [phone] (Fax) Arm mass, left [R22.32] [facility] Comment on above: Arm mass, left [R22.32] Start: 01-29-2025 End: 01-29-2025 Patient encounter procedure 01/29/2025 2:45 PM EDT Office Visit General Surgery [address] [facility] [address] [place] [address] Phil Lawton MD 1 [facility] [place], [place] [phone] (Fax) Follow up Bx 3 General Surgery Comment on above: Follow up Bx 37 Start: 01-21-2025 Hepatitis B surface antibody level LDL Cholesterol [facility] Start: 01-15-2025 End: 01-15-2025 Patient encounter procedure 01/15/2025 1:00 PM EST Office Visit General Surgery [address] [facility] [address] [place] [phone] Phil Lawton MD 1 [facility] [place], [place] [phone] (Fax) Soft tissue mass Left arm General Surgery Comment on above: Soft tissue mass Left arm Start: 01-12-2025 Covid-19 Vaccine ( season) Covid-19 Vaccine ( season) [facility] Start: 01-04-2025 End: 01-04-2025 Patient encounter procedure Ophthalmology Comment on above: PVD-RETINA EVAL *NEW PER AYDIN, T2 NPDR/PVD-LATTICE, DFE/OCT Start: 12-21-2024 End: 12-21-2024 Patient encounter procedure 12/21/2024 3:45 PM EST Office Visit Endocrinology [address] [address] Mary Kate Barber, JEREMIAH.MANAGER NEWS 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) Mixed hyperlipidemia Expected: 12/11/2024, Expires: 03/12/2025 [facility] Comment on above: Expected: 12/11/2024, Expires: Start: 12-11-2024 End: 03-12-2025 Lipid 1996 panel - Serum or Plasma LIPID PANEL BASIC Lab Routine Mixed hyperlipidemia Expected: 12/11/2024, Expires: 03/12/2025 [facility] Comment on above: Expected: 12/11/2024, Expires: Start: 12-11-2024 End: 03-12-2025 Natriuretic peptide.B prohormone N-Terminal [Mass/volume] in Serum or Plasma NT PRO BNP Lab Routine Chronic systolic congestive heart failure (HCC) Expected: 12/11/2024, Expires: 03/12/2025 [facility] Comment on above: Expected: 12/11/2024, Expires: Start: 12-04-2024 End: 12-04-2024 Patient encounter procedure 12/04/2024 3:20 PM EST Office Visit Orthopaedics [address] [address] Lilia Obregon PA-C [address] [place] [address] Right shoulder pain- follow up Orthopaedics Comment on above: Right shoulder pain- follow up Start: 11-30-2024 End: 11-30-2024 Patient encounter procedure 11/30/2024 1:30 PM EST Office Visit [facility] [address] [place] [id number] Molly Murrieta MD, PhD [address] [place] [address] [facility] Comment on above: [facility] Start: 11-15-2024 Advance Directive Discussion Advance Directive Discussion [facility] Start: 10-24-2024 End: 10-24-2024 Patient encounter procedure 10/24/2024 1:30 PM EST Office Visit Cardiology [address] [place] [address] Nelly Brown, SEWER MAINTENANCE SUPERVISOR.MANAGER NEWS [address] [place] [address] Follow up HF Cardiology Comment on above: Follow up HF Start: 10-23-2024 End: 10-23-2024 Patient encounter procedure Radiology Comment on above: Right Shoulder Pain Cyst left arm betwee n elbow and wrist R shoulder Pain Start: 10-19-2024 End: 10-19-2024 Patient encounter procedure 10/19/2024 2:00 PM EST Office Visit [facility] [address] [place] [address] Molly Murrieta MD, PhD [address] [place] [address] [facility] Comment on above: RETINA Start: 10-02-2024 End: 10-02-2024 Patient encounter procedure 10/02/2024 1:30 PM EST Office Visit Cardiology [address] [place] [address] Jody Sparks, SEWER MAINTENANCE SUPERVISOR.MANAGER NEWS [address] [place] [address] Follow up HF Cardiology Comment on above: Follow up HF Start: 09-15-2024 End: 11-15-2024 Comprehensive metabolic 2000 panel - Serum or Plasma COMPREHENSIVE METABOLIC PANEL Lab Routine 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) Mixed hyperlipidemia Expected: 09/15/2024, Expires: 11/15/2024 [facility] Comment on above: Expected: 09/15/2024, Expires: 5 Start: 09-15-2024 End: 11-15-2024 Lipid 1996 panel - Serum or Plasma LIPID PANEL BASIC Lab Routine Mixed hyperlipidemia Expected: 09/15/2024, Expires: 11/15/2024 [facility] Comment on above: Expected: 09/15/2024, Expires: Start: 09-07-2024 End: 09-07-2024 Patient encounter procedure Cardiology Comment on above: Follow up HF 3 month follow up Start: 09-07-2024 Hemoglobin A1c measurement HbA1C [facility] Start: 08-23-2024 End: 08-23-2024 Patient encounter procedure 08/23/2024 3:30 PM EDT Office Visit [facility] [address] [place] [address] Mesfin Perrin MD [address] [place] [address] follow up Ophthalmology Comment on above: follow up Start: 08-10-2024 BP Controlled (<130/80) BP Controlled (<130/80) [facility] in Start: 07-24-2024 End: 07-24-2024 Patient encounter procedure 07/24/2024 1:30 PM EDT Office Visit Cardiology [address] [place] [address] Jody Sparks APRN.MANAGER NEWS [address] [place] [address] Follow up HF Cardiology Comment on above: Follow up HF Start: 07-16-2024 Influenza vaccination Influenza Vaccine (#1) [facility] Start: 06-30-2024 Hepatitis B surface antibody level LDL CHOLESTEROL [facility] Start: 06-26-2024 End: 06-26-2024 Patient encounter procedure 06/26/2024 9:40 AM EDT Office Visit Cardiology [address] [place], [place] [address] 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) [I25.118]; Cardiomyopathy, ischemic [I25.5] Cardiology Comment on above: 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) [I25.118]; Cardiomyopathy, ischemic [I25.5] Start: 06-22-2024 BP CONTROLLED (<130/80) BP CONTROLLED (<130/80) [facility] in Start: 06-21-2024 End: 06-21-2024 Patient encounter procedure 06/21/2024 10:30 AM EDT Office Visit Cardiology [address] [place], [place] [id number] Jody Sparks APRN.MANAGER NEWS [address] [place] [address] HF Cardiology Comment on above: HF Start: 06-19-2024 End: 06-12-2025 Echocardiography ECHO Cardiology Routine 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) Cardiomyopathy, ischemic Expected: 06/19/2024, Expires: 06/12/2025 [facility] Work Phone: Comment on above: Expected: 06/19/2024, Expires: Start: 06-12-2024 End: 06-12-2024 Patient encounter procedure 06/12/2024 9:00 AM EDT Office Visit Cardiology [address] [place] [phone] Yared Dodd MD [address] [address] 6 month follow up Cardiology Comment on above: 6 month follow up Start: 06-07-2024 End: 06-07-2024 Patient encounter procedure 06/07/2024 10:30 AM EDT Office Visit Endocrinology [address] [address] Mary Kate Barber APRN.MANAGER NEWS [address] [address] Diabetes Endocrinology Comment on above: Diabetes Start: 05-24-2024 End: 05-24-2024 Patient encounter procedure 05/24/2024 10:45 AM EDT Office Visit [facility] [address] [place] [address] Mesfin Perrin MD [address] [place] [address] 3 MTH F/U Ophthalmology Comment on above: 3 MTH F/U Start: 05-19-2024 Hemoglobin A1c measurement HbA1C [facility] Start: 05-17-2024 Hepatitis B surface antibody level LDL CHOLESTEROL [facility] Start: 05-06-2024 BP CONTROLLED (<130/80) BP CONTROLLED (<130/80) [facility] Start: 05-03-2024 BP CONTROLLED (<130/80) BP CONTROLLED (<130/80) [facility] Start: 04-09-2024 Hepatitis B surface antibody level LDL CHOLESTEROL [facility] Start: 02-18-2024 Hemoglobin A1c measurement HbA1C [facility] Start: 02-14-2024 Diabetic foot examination Diabetic Foot Exam [facility] Comment on above: Postponed from 03/07/2022 (Declined at t his time) Start: 02-08-2024 Hemoglobin A1c/Hemoglobin.total in Blood HbA1C [facility] Start: 01-17-2024 End: 04-17-2024 Lipid 1996 panel - Serum or Plasma LIPID PANEL BASIC Lab Routine Mixed hyperlipidemia Expected: 01/17/2024, Expires: 04/17/2024 [facility] Work Phone: Comment on above: Expected: 01/17/2024, Expires: Start: 12-28-2023 Covid-19 Vaccine () Covid-19 Vaccine () [facility] Start: 11-15-2023 Advance Directive Discussion Advance Directive Discussion [facility] Start: 11-15-2023 Behavioral Health Screening Behavioral Health Screening [facility] Start: 11-15-2023 Depression Assessment Depression Assessment [facility] Start: 10-15-2023 3 comp foot exam completed Diabetic Foot Exam [facility] Comment on above: Postponed from 03/07/2022 (Declined at t his time) Start: 09-08-2023 Hemoglobin A1c/Hemoglobin.total in Blood HBA1C [facility] Start: 08-23-2023 End: 10-23-2023 Comprehensive metabolic 2000 panel - Serum or Plasma COMP METABOLIC PANEL Lab Routine Chronic systolic congestive heart failure (HCC) Expected: 08/23/2023, Expires: 10/23/2023 [facility] Work Phone: Comment on above: Expected: 08/23/2023, Expires: 3 Start: 08-23-2023 End: 10-23-2023 Natriuretic peptide.B prohormone N-Terminal [Mass/volume] in Serum or Plasma NT PRO BNP Lab Routine Chronic systolic congestive heart failure (HCC) Expected: 08/23/2023, Expires: 10/23/2023 [facility] Work Phone: Comment on above: Expected: 08/23/2023, Expires: 3 Start: 07-16-2023 Covid-19 Vaccine () Covid-19 Vaccine () [facility] Start: 07-16-2023 Influenza vaccination [facility] Start: 07-09-2023 Hemoglobin A1c/Hemoglobin.total in Blood HBA1C [facility] Start: 06-22-2023 End: 08-22-2023 Comprehensive metabolic 2000 panel - Serum or Plasma COMP METABOLIC PANEL Lab Routine 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) Mixed hyperlipidemia Expected: 06/22/2023, Expires: 08/22/2023 [facility] Work Phone: Comment on above: Expected: 06/22/2023, Expires: 3 Start: 06-22-2023 End: 08-22-2023 Lipid 1996 panel - Serum or Plasma LIPID PANEL BASIC Lab Routine Mixed hyperlipidemia Expected: 06/22/2023, Expires: 08/22/2023 [facility] Work Phone: Comment on above: Expected: 06/22/2023, Expires: 3 Start: 05-03-2023 End: 07-03-2023 Comprehensive metabolic 2000 panel - Serum or Plasma COMP METABOLIC PANEL Lab Routine 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) Mixed hyperlipidemia Expected: 05/03/2023, Expires: 07/03/2023 [facility] Work Phone: Comment on above: Expected: 05/03/2023, Expires: 3 Start: 05-03-2023 End: 07-03-2023 Lipid 1996 panel - Serum or Plasma LIPID PANEL BASIC Lab Routine Mixed hyperlipidemia Expected: 05/03/2023, Expires: 07/03/2023 [facility] Work Phone: Comment on above: Expected: 05/03/2023, Expires: 3 Start: 05-03-2023 End: 07-03-2023 Natriuretic peptide.B prohormone N-Terminal [Mass/volume] in Serum or Plasma NT PRO BNP Lab Routine Chronic systolic congestive heart failure (HCC) Expected: 05/03/2023, Expires: 07/03/2023 [facility] Work Phone: Comment on above: Expected: 05/03/2023, Expires: 3 Start: 05-03-2023 [facility] Start: 05-03-2023 Patient referral to dietitian [facility] Start: 03-04-2023 Hemoglobin A1c/Hemoglobin.total in Blood HBA1C [facility] Start: 02-01-2023 Hemoglobin A1c/Hemoglobin.total in Blood HBA1C [facility] Start: 11-15-2022 ADVANCE DIRECTIVE DISCUSSION ADVANCE DIRECTIVE DISCUSSION [facility] Start: 11-15-2022 DEPRESSION ASSESSMENT DEPRESSION ASSESSMENT [facility] Start: 08-28-2022 COVID-19 VACCINE (5 - Booster for Pfizer series) COVID-19 VACCINE (5 - Booster for Pfizer series) [facility] Start: 08-28-2022 COVID-19 VACCINE (5 - Pfizer series) COVID-19 VACCINE (5 - Pfizer series) [facility] Start: 07-16-2022 Influenza vaccination [facility] Start: 03-07-2022 3 comp foot exam completed DIABETIC FOOT EXAM [facility] Start: 03-07-2022 Diabetic foot examination Diabetic Foot Exam [facility] Start: 02-11-2022 Hepatitis B screening URINE ALBUMIN:CREATININE RATIO [facility] Start: 02-11-2022 Hepatitis B surface antibody level LDL CHOLESTEROL [facility] Start: 01-11-2022 COVID-19 VACCINE (4 - Booster for Pfizer series) COVID-19 VACCINE (4 - Booster for Pfizer series) [facility] Start: 11-15-2021 ADVANCE DIRECTIVE DISCUSSION ADVANCE DIRECTIVE DISCUSSION [facility] Start: 11-15-2021 DEPRESSION ASSESSMENT DEPRESSION ASSESSMENT [facility] Start: 06-09-2021 COVID-19 VACCINE (3 - Booster for Pfizer series) COVID-19 VACCINE (3 - Booster for Pfizer series) [facility] Start: 06-06-2021 Hemoglobin A1c/Hemoglobin.total in Blood HBA1C [facility] Start: 12-09-2020 Pneumococcal Vaccine: 50+ (2 of 2 - PPSV23) Pneumococcal Vaccine: 50+ (2 of 2 - PPSV23) [facility] [facility] Start: 12-09-2020 Pneumococcal Vaccine: 50+ (2 of 2 - PPSV23, PCV20, or PCV21) Pneumococcal Vaccine: 50+ (2 of 2 - PPSV23, PCV20, or PCV21) [facility] Start: 12-09-2020 Pneumococcal Vaccine: 65+ (2 - PPSV23 or PCV20) Pneumococcal Vaccine: 65+ (2 - PPSV23 or PCV20) [facility] Start: 12-09-2020 Pneumococcal Vaccine: 65+ (2 of 2 - PPSV23 or PCV20) Pneumococcal Vaccine: 65+ (2 of 2 - PPSV23 or PCV20) [facility] Start: 2020 BONE DENSITY BONE DENSITY [facility] Start: 2020 Bone Density Screening Bone Density Screening [facility] Start: 2020 PNEUMOVAX AGE 65 AND OVER WITH 5YR LOOKBACK (#1) PNEUMOVAX AGE 65 AND OVER WITH 5YR LOOKBACK (#1) [facility] Start: 2020 Screening for osteoporosis Bone Density Screening [facility] Start: 2015 Hepatitis B Vaccine (1 of 3 - Risk 3-dose series) Hepatitis B Vaccine (1 of 3 - Risk 3-dose series) [facility] Start: 2015 RSV Vaccine (1 - 1-dose 60+ series) RSV Vaccine (1 - 1-dose 60+ series) [facility] Start: 2015 RSV Vaccine (1 - Risk 60-74 years 1-dose series) RSV Vaccine (1 - Risk 60-74 years 1-dose series) [facility] Start: 2005 SHINGRIX VACCINE (1 of 2) SHINGRIX VACCINE (1 of 2) [facility] Start: 2000 COLOGUARD (FIT-DNA) COLOGUARD (FIT-DNA) [facility] Start: 2000 Colonoscopy COLONOSCOPY [facility] Start: 2000 COLORECTAL CANCER SCREENING COLORECTAL CANCER SCREENING [facility] Start: [address] COLONOGRAPHY [facility] Start: 2000 FECAL OCCULT BLOOD FECAL OCCULT BLOOD [facility] Start: 2000 Screening for malignant neoplasm of colon [facility] Start: 2000 SIGMOIDOSCOPY SIGMOIDOSCOPY [facility] Start: 1995 Mammography [facility] Start: 1995 Screening for malignant neoplasm of breast Mammogram Screening [facility] Start: 1974 Urine microalbumin profile [facility] Start: 1973 ANNUAL PCP TEAM CHRONIC DISEASE VISIT ANNUAL PCP TEAM CHRONIC DISEASE VISIT [facility] Start: 1973 Anxiety Screening Anxiety Screening [facility] Start: 1973 BP CONTROLLED (<130/80) BP CONTROLLED (<130/80) [facility] Start: 1973 Depression Screening Depression Screening [facility] Start: 1973 HEPATITIS C SCREENING HEPATITIS C SCREENING [facility] Start: 1973 Hepatitis C screening Hepatitis C Screening [facility] Start: 1967 Adult depression screening assessment DEPRESSION SCREENING [facility] Start: 1965 Glaucoma screening Dilated Retinal Exam [facility] Start: 1965 Hepatitis C antibody, confirmatory test DILATED RETINAL EXAM [facility] Start: 1961 Pneumococcal Vaccine: 65+ (1 - PCV) Pneumococcal Vaccine: 65+ (1 - PCV) [facility] Start: 1961 PNEUMOCOCCAL: 65+ (1 - PCV) PNEUMOCOCCAL: 65+ (1 - PCV) [facility] Clostridioides diffi cile toxin genes [Presence] in Stool by ALYX with probe detection CLOSTRIDIUM DIFFICILE TOXIN BY PCR Lab Routine Diarrhea, unspecified type Ordered: 07/08/2025 [facility] Work Phone: Comment on above: Ordered: 07/08/2025 End: 12-29-2023 COLONOSCOPY DIAGNOSTIC COLONOSCOPY DIAGNOSTIC Endoscopy Routine Periumbilical abdominal pain Diarrhea, unspecified type 1 Occurrences starting 12/29/2022 until 12/29/2023 [facility] Work Phone: Comment on above: 1 Occurrences starting 12/29/2022 until 12/29/2023 COVID & INFLUENZA A/ B & RSV PCR, ROUTINE COVID & INFLUENZA A/B & RSV PCR, ROUTINE Microbiology Routine Lower resp. 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) Ordered: 06/22/2023 [facility] Work Phone: Comment on above: Ordered: 06/22/2023 End: 05-03-2024 Echocardiography ECHO Cardiology Routine Chronic systolic congestive heart failure (HCC) Cardiomyopathy, ischemic 1 Occurrences starting 05/03/2023 until 05/03/2024 [facility] Work Phone: Comment on above: 1 Occurrences starting 05/03/2023 until 05/03/2024 End: 12-29-2023 EGD DIAGNOSTIC EGD DIAGNOSTIC Endoscopy Routine Periumbilical abdominal pain Diarrhea, unspecified type 1 Occurrences starting 12/29/2022 until 12/29/2023 [facility] Work Phone: Comment on above: 1 Occurrences starting 12/29/2022 until 12/29/2023 ENTERIC BACTERIAL PA KEYSHA BY PCR ENTERIC BACTERIAL PANEL BY PCR Lab Routine Diarrhea, unspecified type Ordered: 07/08/2025 [facility] Comment on above: Ordered: 07/08/2025 Giardia lamblia+Cryptosporidium sp Ag [Presence] in Stool by Immunoassay CRYPTOSPORIDIUM AND GIARDIA ANTIGENS BY EIA Microbiology Routine Diarrhea, unspecified type Ordered: 07/08/2025 [facility] Comment on above: Ordered: 07/08/2025 Guidance for biopsy of Soft tissue IMAGING GUIDED BIOPSY SOFT TISSUE MASS/MUSCLE Radiology Routine Arm mass, left Ordered: 01/15/2025 [facility] Work Phone: Comment on above: Ordered: 01/15/2025 End: 01-10-2026 NM Heart Perfusion W stress and W radionuclide IV NM CARDIAC PERF STRESS/PHARM Radiology Routine 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) 1 Occurrences starting 12/11/2024 until 01/10/2026 [facility] Work Phone: Comment on above: 1 Occurrences starting 12/11/2024 until 01/10/2026 End: 01-19-2025 Tissue Pathology biopsy report [facility] Work Phone: Comment on above: ONCE for 1 Occurrences starting 01/20/20 until 01/19/2025, 1 completed US Extremity - left US EXTREMITY MASS/FLUID COLLECTION LEFT Radiology Routine Arm mass, left 12/05/2024 8:12 PM EST [facility] Work Phone: End: 02-20-2025 XR Chest PA and Lateral XR CHEST 2V FRONTAL/LAT Radiology STAT SOB (shortness of breath) Acute cough 1 Occurrences starting 02/18/2025 until 02/20/2025 [facility] Work Phone: Comment on above: 1 Occurrences starting 02/18/2025 until 02/20/2025 End: 04-17-2026 XR Chest PA and Lateral XR CHEST 2V FRONTAL/LAT Radiology STAT Lower resp. tract infection 1 Occurrences starting 03/18/2025 until 04/17/2026 [facility] Work Phone: Comment on above: 1 Occurrences starting 03/18/2025 until 04/17/2026 [facility] Immunizations Immunization Date Immunization Notes Care Provider [facility] 07-14-2024 influenza (aIIV4) vaccine, age 65+ yr, quadrivalent, PF (FLUAD QUAD) Jody Sparks APRN.MANAGER NEWS Work Phone: [facility] 07-14-2024 influenza virus vaccine, unspecified formulation Edd Chaney MD Work Phone: [facility] 09-08-2023 influenza, high dose seasonal, preservative-free; Translations: [Fluad Quadrivalent PF ] DAVID WYNN DO [facility] 09-08-2023 influenza virus vaccine, unspecified formulation Mesfin Perrin MD Work Phone: [facility] 01-10-2021 SARS-CoV-2 mRNA (tozinameran) vaccine DAVID WYNN DO [facility] [place] Comment on above: Result Comment: [employer] 12-20-2020 SARS-CoV-2 mRNA (tozinameran) vaccine DAVID WYNN DO [facility] [place] Comment on above: Result Comment: [employer] 12-19-2020 COVID-19 vaccine, ag e 12+ yr (PFIZER-BIONTMosoro - PURPLE TOP) Mary Kate Barber APRN.MANAGER NEWS Work Phone: [facility] 10-14-2020 influenza virus vaccine, unspecified formulation DAVID WYNN DO [facility] [place] 10-14-2020 pneumococcal conjuga te vaccine, 13 valent DAVID WYNN DO [facility] [place] 07-16-2016 influenza virus vaccine, unspecified formulation DAVID WYNN DO [facility] [place] 09-21-2012 influenza virus vaccine, unspecified formulation DAVID WYNN DO [facility] [place] 08-17-2009 influenza virus vaccine, unspecified formulation Mary Kate Barber APRN.MANAGER NEWS Work Phone: [facility] Payers Date Payer Category Payer Self-pay [id number] 2021 Private Health Insurance [id number] 2021 Unknown [id number] 2021 Unknown [id number] 2019 Unknown [id number] 2013 Private Health Insurance [employer] [id number] 1955 Unknown [id number] 2.16.8 [id number] 1955 Unknown [id number] 2.16.8 [id number] 1955 Unknown [id number] 2.16.8 [id number] 1955 Unknown [id number] 2.16.8 [id number] 1955 Unknown [id number] 2.16. [id number] 1955 Unknown [id number] 2.16.8 [id number] Unknown [id number] 2.16.8 [id number] Unknown [id number] 2.16.8 [id number] Unknown [id number] 2.16.8 [id number] Unknown [id number] 2.16.8 [id number] Unknown [id number] 2.16.8 [id number] Unknown [id number] 2.16.8 [id number] Unknown [id number] 2.16.8 [id number] Unknown [id number] 2.16.8 [id number] Social History Date Type Detail Facility Start: 06-21-2019 End: 08-04-2022 Tobacco smoking status NHIS Never smoked tobacco [facility] Start: 03-07-2021 End: 01-29-2025 Alcohol intake Current drinker of alcohol (finding) [facility] Start: 12-03-2017 End: 08-04-2022 Tobacco Comment Secondhand smoke exposure x 30 years (Father and 1st ) [facility] Start: 1955 Sex Assigned At Not on file [facility] Start: 1955 Sex Assigned At Female A [facility] Start: 04-14-2022 End: 08-04-2022 Exposure to SARS-CoV-2 (event) Not sure [facility] Start: 08-04-2022 Tobacco use and exposure Smoke less tobacco non-user [facility] Start: 04-09-2023 History SDOH Financial 5 [facility] Start: 04-09-2023 History SDOH Food Worry 1 [facility] Start: 04-09-2023 History SDOH Transpo rt Med 2 [facility] Start: 05-03-2023 [facility] Start: 04-08-2023 End: 05-06-2023 History of Social function [facility] Work Phone: Start: 04-08-2023 End: 05-06-2023 Tobacco use panel [facility] Work Phone: Start: 10-16-2012 How hard is it for y ou to pay for the very basics like food, housing, medical care, and heating Not hard at all [facility] Work Phone: (I/We) worried wheanamika er (my/our) food would run out before (I/we) got money to buy more. Never true [facility] Work Phone: In the past 12 month s, was there a time when you were not able to pay the mortgage or rent on time? No [facility] Work Phone: Start: 02-15-2025 End: 07-08-2025 Alcoholic beverage intake Ex-drinker (finding) [facility] Sexual Orientation Guylazaro georgesp[facility] Start: 05-10-2019 Sex Female (finding) [facility] Medical Equipment Procedure Code Equipment Code Equipment Origin al Text Equipment Identifier Dates [id number] Implant - [id number] Start: 04-19-2012 Comment on above: Description: Propel mometasone furoate i mplantsinus implant stentIntersect co. [id number], [id number], [id number], [id number], [id number], [id number], [id number], [id number], [id number] Start: 03-07-2021 End: 07-03-2025 Comment on above: Use as instructed; us 4 strips per day, IDDM, E11.29 ; using accuchek meter Use one daily with t resiba; ok to sub per insurance USE AND DISCARD 3 SY RINGES DAILY Use 3 syringes daily Use 4 pen needles da atif Use as instructed to test blood sugar 6 times daily Use as instructed to test blood sugar 6 times daily; IDDM,11.21 See Instructions , Dispense One Touch Ultra Test Strips #360, UAD 4 times daily to check blood sugar; frequent blood sugar testing due to fluctuating blood sugars (replaces previous prescription sent with wrong directions), # 360 EA, 3 Refill(s), Pharm... Start: 04-14-2022 See Instructions , Dispense 1 mL 31 ga. x 6 mm insulin syringes, #200, UAD BID to inject insulin, # 200 EA, 1 Refill(s), Pharmacy: [address], Diabetes, 165, cm, 04/14/22 16:15:00 EDT, Height, 91.3, kg, 04/14/22 16:15:00 EDT, Dosing Weight Start: 04-14-2022 See Instructions , Dispense UltraFine lancets, #360, UAD 4 times daily to check blood sugar, frequent blood sugar testing due to fluctuating blood sugars, # 360 EA, 3 Refill(s), Pharmacy: [facility], Diabetes, 165, cm, 04/14/22 1... Start: 04-14-2022 See Instructions , Dispense One Touch Ultra Test Strips #360, UAD 4 times daily to check blood sugar; frequent blood sugar testing due to fluctuating blood sugars (replaces previous prescription sent with wrong directions), # 360 EA, 3 Refill(s), Pharm... Start: 04-14-2022 See Instructions , Dispense 1 mL 31 ga. x 6 mm insulin syringes, #200, UAD BID to inject insulin, # 200 EA, 1 Refill(s), Pharmacy: [address], Diabetes, 165, cm, 04/14/22 16:15:00 EDT, Height, 91.3, kg, 04/14/22 16:15:00 EDT, Dosing Weight Start: 04-14-2022 See Instructions , Dispense UltraFine lancets, #360, UAD 4 times daily to check blood sugar, frequent blood sugar testing due to fluctuating blood sugars, # 360 EA, 3 Refill(s), Pharmacy: [facility], Diabetes, 165, cm, 04/14/22 1... Start: 04-14-2022 See Instructions , Dispense One Touch Ultra Test Strips #360, UAD 4 times daily to check blood sugar; frequent blood sugar testing due to fluctuating blood sugars (replaces previous prescription sent with wrong directions), # 360 EA, 3 Refill(s), Pharm... Start: 04-14-2022 See Instructions , Dispense 1 mL 31 ga. x 6 mm insulin syringes, #200, UAD BID to inject insulin, # 200 EA, 1 Refill(s), Pharmacy: [address], Diabetes, 165, cm, 04/14/22 16:15:00 EDT, Height, 91.3, kg, 04/14/22 16:15:00 EDT, Dosing Weight Start: 04-14-2022 See Instructions , Dispense UltraFine lancets, #360, UAD 4 times daily to check blood sugar, frequent blood sugar testing due to fluctuating blood sugars, # 360 EA, 3 Refill(s), Pharmacy: [facility], Diabetes, 165, cm, 04/14/22 1... Start: 04-14-2022 See Instructions , Dispense One Touch Ultra Test Strips #360, UAD 4 times daily to check blood sugar; frequent blood sugar testing due to fluctuating blood sugars (replaces previous prescription sent with wrong directions), # 360 EA, 3 Refill(s), Pharm... Start: 04-14-2022 See Instructions , Dispense 1 mL 31 ga. x 6 mm insulin syringes, #200, UAD BID to inject insulin, # 200 EA, 1 Refill(s), Pharmacy: [facility] Diabetes, 165, cm, 04/14/22 16:15:00 EDT, Height, 91.3, kg, 04/14/22 16:15:00 EDT, Dosing Weight Start: 04-14-2022 See Instructions , Dispense UltraFine lancets, #360, UAD 4 times daily to check blood sugar, frequent blood sugar testing due to fluctuating blood sugars, # 360 EA, 3 Refill(s), Pharmacy: [facility], Diabetes, 165, cm, 04/14/22 1... Start: 04-14-2022 See Instructions , Dispense One Touch Ultra Test Strips #360, UAD 4 times daily to check blood sugar; frequent blood sugar testing due to fluctuating blood sugars (replaces previous prescription sent with wrong directions), # 360 EA, 3 Refill(s), Pharm... Start: 04-14-2022 See Instructions , Dispense 1 mL 31 ga. x 6 mm insulin syringes, #200, UAD BID to inject insulin, # 200 EA, 1 Refill(s), Pharmacy: [id number] [place] [address], Diabetes, 165, cm, 04/14/22 16:15:00 EDT, Height, 91.3, kg, 04/14/22 16:15:00 EDT, Dosing Weight Start: 04-14-2022 See Instructions , Dispense UltraFine lancets, #360, UAD 4 times daily to check blood sugar, frequent blood sugar testing due to fluctuating blood sugars, # 360 EA, 3 Refill(s), Pharmacy: [facility], Diabetes, 165, cm, 04/14/22 1... Start: 04-14-2022 USE 4 PEN NEEDLE S DAILY Start: 04-29-2023 See Instructions , Dispense One Touch Ultra Test Strips #360, UAD 4 times daily to check blood sugar; frequent blood sugar testing due to fluctuating blood sugars (replaces previous prescription sent with wrong directions), # 360 EA, 3 Refill(s), Pharmacy: [facility], Diabetes, 165, cm, 04/14/22 16:15:00 EDT, Height, 91.3, kg, 04/14/22 16:15:00 EDT, Dosing Weight Start: 04-14-2022 See Instructions , Dispense 1 mL 31 ga. x 6 mm insulin syringes, #200, UAD BID to inject insulin, # 200 EA, 1 Refill(s), Pharmacy: [address], Diabetes, 165, cm, 04/14/22 16:15:00 EDT, Height, 91.3, kg, 04/14/22 16:15:00 EDT, Dosing Weight Start: 04-14-2022 See Instructions , Dispense UltraFine lancets, #360, UAD 4 times daily to check blood sugar, frequent blood sugar testing due to fluctuating blood sugars, # 360 EA, 3 Refill(s), Pharmacy: [facility], Diabetes, 165, cm, 04/14/22 16:15:00 EDT, Height, 91.3, kg, 04/14/22 16:15:00 EDT, Dosing Weight Start: 04-14-2022 USE 4 PEN NEEDLE S DAILY Start: 04-29-2023 See Instructions , Dispense One Touch Ultra Test Strips #360, UAD 4 times daily to check blood sugar; frequent blood sugar testing due to fluctuating blood sugars (replaces previous prescription sent with wrong directions), # 360 EA, 3 Refill(s), Pharmacy: [facility], Diabetes, 165, cm, 04/14/22 16:15:00 EDT, Height, 91.3, kg, 04/14/22 16:15:00 EDT, Dosing Weight Start: 04-14-2022 See Instructions , Dispense 1 mL 31 ga. x 6 mm insulin syringes, #200, UAD BID to inject insulin, # 200 EA, 1 Refill(s), Pharmacy: [address], Diabetes, 165, cm, 04/14/22 16:15:00 EDT, Height, 91.3, kg, 04/14/22 16:15:00 EDT, Dosing Weight Start: 04-14-2022 See Instructions , Dispense UltraFine lancets, #360, UAD 4 times daily to check blood sugar, frequent blood sugar testing due to fluctuating blood sugars, # 360 EA, 3 Refill(s), Pharmacy: [facility], Diabetes, 165, cm, 04/14/22 16:15:00 EDT, Height, 91.3, kg, 04/14/22 16:15:00 EDT, Dosing Weight Start: 04-14-2022 USE 4 PEN NEEDLE S DAILY Start: 04-29-2023 See Instructions , Dispense One Touch Ultra Test Strips #360, UAD 4 times daily to check blood sugar; frequent blood sugar testing due to fluctuating blood sugars (replaces previous prescription sent with wrong directions), # 360 EA, 3 Refill(s), Pharmacy: [facility], Diabetes, 165, cm, 04/14/22 16:15:00 EDT, Height, 91.3, kg, 04/14/22 16:15:00 EDT, Dosing Weight Start: 04-14-2022 See Instructions , Dispense 1 mL 31 ga. x 6 mm insulin syringes, #200, UAD BID to inject insulin, # 200 EA, 1 Refill(s), Pharmacy: [address], Diabetes, 165, cm, 04/14/22 16:15:00 EDT, Height, 91.3, kg, 04/14/22 16:15:00 EDT, Dosing Weight Start: 04-14-2022 See Instructions , Dispense UltraFine lancets, #360, UAD 4 times daily to check blood sugar, frequent blood sugar testing due to fluctuating blood sugars, # 360 EA, 3 Refill(s), Pharmacy: [facility], Diabetes, 165, cm, 04/14/22 16:15:00 EDT, Height, 91.3, kg, 04/14/22 16:15:00 EDT, Dosing Weight Start: 04-14-2022 USE 4 PEN NEEDLE S DAILY Start: 04-29-2023 See Instructions , Dispense One Touch Ultra Test Strips #360, UAD 4 times daily to check blood sugar; frequent blood sugar testing due to fluctuating blood sugars (replaces previous prescription sent with wrong directions), # 360 EA, 3 Refill(s), Pharmacy: [facility], Diabetes, 165, cm, 04/14/22 16:15:00 EDT, Height, 91.3, kg, 04/14/22 16:15:00 EDT, Dosing Weight Start: 04-14-2022 See Instructions , Dispense 1 mL 31 ga. x 6 mm insulin syringes, #200, UAD BID to inject insulin, # 200 EA, 1 Refill(s), Pharmacy: [address], Diabetes, 165, cm, 04/14/22 16:15:00 EDT, Height, 91.3, kg, 04/14/22 16:15:00 EDT, Dosing Weight Start: 04-14-2022 See Instructions , Dispense UltraFine lancets, #360, UAD 4 times daily to check blood sugar, frequent blood sugar testing due to fluctuating blood sugars, # 360 EA, 3 Refill(s), Pharmacy: [facility], Diabetes, 165, cm, 04/14/22 16:15:00 EDT, Height, 91.3, kg, 04/14/22 16:15:00 EDT, Dosing Weight Start: 04-14-2022 USE 4 PEN NEEDLE S DAILY Start: 04-29-2023 See Instructions , Dispense One Touch Ultra Test Strips #360, UAD 4 times daily to check blood sugar; frequent blood sugar testing due to fluctuating blood sugars (replaces previous prescription sent with wrong directions), # 360 EA, 3 Refill(s), Pharmacy: [facility], Diabetes, 165, cm, 04/14/22 16:15:00 EDT, Height, 91.3, kg, 04/14/22 16:15:00 EDT, Dosing Weight Start: 04-14-2022 See Instructions , Dispense 1 mL 31 ga. x 6 mm insulin syringes, #200, UAD BID to inject insulin, # 200 EA, 1 Refill(s), Pharmacy: [address], Diabetes, 165, cm, 04/14/22 16:15:00 EDT, Height, 91.3, kg, 04/14/22 16:15:00 EDT, Dosing Weight Start: 04-14-2022 See Instructions , Dispense UltraFine lancets, #360, UAD 4 times daily to check blood sugar, frequent blood sugar testing due to fluctuating blood sugars, # 360 EA, 3 Refill(s), Pharmacy: [facility], Diabetes, 165, cm, 04/14/22 16:15:00 EDT, Height, 91.3, kg, 04/14/22 16:15:00 EDT, Dosing Weight Start: 04-14-2022 USE 4 PEN NEEDLE S DAILY Start: 04-29-2023 See Instructions , Dispense One Touch Ultra Test Strips #360, UAD 4 times daily to check blood sugar; frequent blood sugar testing due to fluctuating blood sugars (replaces previous prescription sent with wrong directions), # 360 EA, 3 Refill(s), Pharmacy: [facility], Diabetes, 165, cm, 04/14/22 16:15:00 EDT, Height, 91.3, kg, 04/14/22 16:15:00 EDT, Dosing Weight Start: 04-14-2022 See Instructions , Dispense 1 mL 31 ga. x 6 mm insulin syringes, #200, UAD BID to inject insulin, # 200 EA, 1 Refill(s), Pharmacy: [id number], Diabetes, 165, cm, 04/14/22 16:15:00 EDT, Height, 91.3, kg, 04/14/22 16:15:00 EDT, Dosing Weight Start: 04-14-2022 See Instructions , Dispense UltraFine lancets, #360, UAD 4 times daily to check blood sugar, frequent blood sugar testing due to fluctuating blood sugars, # 360 EA, 3 Refill(s), Pharmacy: [facility], Diabetes, 165, cm, 04/14/22 16:15:00 EDT, Height, 91.3, kg, 04/14/22 16:15:00 EDT, Dosing Weight Start: 04-14-2022 Goals Date Patient Goal Desired Activity /State Personal health goal Functional Status Date Assessment Result Facility 04-13-2023 Are you deaf, or do you have serious difficulty hearing No 04/13/2023 5:08 PM EDT Dorcas Matson RN No [facility] 04-13-2023 Are you blind, or do you have serious difficulty seeing, even when wearing glasses No 04/13/2023 5:08 PM EDT Dorcas Matson RN No [facility] 04-13-2023 Do you have serious difficulty walking or climbing stairs No 04/13/2023 5:08 PM EDT Dorcas Matson RN No [facility] 04-13-2023 Do you have difficul ty dressing or bathing No 04/13/2023 5:08 PM EDT Dorcas Matson RN No [facility] 04-13-2023 Because of a physica l, mental, or emotional condition, do you have difficulty doing errands alone such as visiting a physician's office or shopping No 04/13/2023 5:08 PM EDT Dorcas Matson RN No [facility] Mental Status Date Assessment Result Facility 04-13-2023 Because of a physica l, mental, or emotional condition, do you have serious difficulty concentrating, remembering, or making decisions No 04/13/2023 5:08 PM EDT Dorcas Matson RN No [facility] Clinical Notes 04-06-2022 to 07-08-2025 Fam Coker MD - 07/08/2025 3:13 PM EDTPatient InstructionsTelephone Encounter - Kori Manuel RN - 07/03/2025 8:38 AM EDTTelephone Encounter - Kori Manuel RN - 07/03/2025 8:38 AM EDT Note Date & Type Note Facility 07-08-2025 History of Present illness Narrative [facility] Antoinette Kenny Valadez is a 69 year old female. Patient presents with: Diarrhea: Diarrhea x 3 days PT with a hx of DM type II now 3 day hx of diarrhea abdominal pain low grade fever no N/V pt states she was with her who was in the ICU this past week for unrelated issues pt feels fatigued mild dizziness Diarrhea Associated symptoms include abdominal pain and chills. Pertinent negatives include no vomiting and no headaches. Review of Systems Constitutional: Positive for chills, fatigue and fever. Gastrointestinal: Positive for abdominal pain and diarrhea. Negative for blood in stool, nausea, rectal pain and vomiting. Genitourinary: Negative for dysuria and flank pain. Neurological: Positive for dizziness. Negative for light-headedness and headaches. Objective BP 128/76 Pulse 88 Temp 37.4 C (99.4 F) (Tympanic) Resp 18 Wt 87.5 kg (192 lb 14.4 oz) SpO2 98% BMI 31.22 kg/m Physical Exam Vitals and nursing note reviewed. Constitutional: Appearance: Normal appearance. She is not ill-appearing. Abdominal: General: Bowel sounds are normal. Palpations: Abdomen is soft. Tenderness: There is abdominal tenderness. There is no right CVA tenderness, left CVA tenderness, guarding or rebound. Neurological: Mental Status: She is alert and oriented to person, place, and time. Psychiatric: Mood and Affect: Mood normal. Behavior: Behavior normal. {ASSESSMENT/PLAN: 1. Diarrhea, unspecified type - ICD9: 787.91, ICD10: R19.7 Advised pt to go to the ED for IV fluids and labs but declines since she has to care for her Thus I ordered stool labs but advised pt to re consider ED visit due to medical hx - CLOSTRIDIUM DIFFICILE TOXIN BY PCR - ENTERIC BACTERIAL PANEL BY PCR - CRYPTOSPORIDIUM AND GIARDIA ANTIGENS BY EIA Fam Coker MD History and Record Review Systemic symptoms present included: Fever chills fatigue dizziness Differential Diagnoses - infectious diarrhea iatrogenic is more likely for the following reason(s): suggested by H&P - viral diarrhea is less likely for the following reason(s): H&P not suggestive Disposition The patient was discharged. Procedures documented in this encounter [facility] 07-08-2025 Instructions Fam Coker MD - 07/08/2025 3:13 PM EDT ADVISE GOING TO THE ED FOR EVALUATION NOW BUT SINCE YOU HAVE DECLINED I WILL ORDER SOME STOOL LABS DIARRHEA Diarrhea can be caused by many different conditions. The most common cause is viral illness. Food poisoning, bacterial infection, and reactions to medicine (especially antibiotics and antacids) may also be the cause. Most of the time diarrhea improves after 2-3 days of rest and oral fluid replacement. You should drink enough clear fluids (water, sodas, Gatorade) to prevent dehydration. Adults must drink at least 2-3 quarts daily. Solid foods and dairy products must be avoided until your illness improves; then only small amounts may be included in your diet for several days. Medicine to control cramping and diarrhea may be helpful. If you have a fever or blood in the stool, however, these medicines should be avoided as they may prolong your illness. Antibiotics can speed recovery from diarrhea due to some bacterial infections, but may cause complications. Please call your doctor or the emergency department if your diarrhea does not get better in 3 days, or if you have fever, blood in the stool, vomiting, or become more dehydrated. documented in this encounter [facility] 07-03-2025 Telephone encounter Note Received a faxed notification that her insurance will NOT cover 5 times per day testing. RX changed to 3 times per day testing. She will have to stagger testing using 3 times daily testing, or switch to CGM if more testing is necessary due to medical necessity for low/high glucose. Please re-send. Note: last office note state's this as well. Requested Prescriptions Pending Prescriptions Disp Refills ACCU-CHEK GUIDE TEST STRIPS test strip 300 each 3 Sig: Use as instructed to test blood sugar 3 times daily. DX: E11.42, insulin dependent Please review and advise. Kori Manuel RN [facility] 07-03-2025 Miscellaneous Notes Received a faxed notification that her insurance will NOT cover 5 times per day testing. RX changed to 3 times per day testing. She will have to stagger testing using 3 times daily testing, or switch to CGM if more testing is necessary due to medical necessity for low/high glucose. Please re-send. Note: last office note state's this as well. Requested Prescriptions Pending Prescriptions Disp Refills ACCU-CHEK GUIDE TEST STRIPS test strip 300 each 3 Sig: Use as instructed to test blood sugar 3 times daily. DX: E11.42, insulin dependent Please review and advise. Kori Manuel RN documented in this encounter [facility] 07-02-2025 Telephone encounter Note Patient's request for medication is as follows: Requested Prescriptions Pending Prescriptions Disp Refills sacubitril-valsartan (ENTRESTO) 24-26 mg tablet 180 tablet 3 Sig: Take 1 tablet by mouth two times a day. Last seen 02/15/2025. Next visit 08/23/2025. Prescription(s) as above. Please process accordingly. Kori Sparks LPN [facility] 07-02-2025 Miscellaneous Notes Patient's request for medication is as follows: Requested Prescriptions Pending Prescriptions Disp Refills sacubitril-valsartan (ENTRESTO) 24-26 mg tablet 180 tablet 3 Sig: Take 1 tablet by mouth two times a day. Last seen 02/15/2025. Next visit 08/23/2025. Prescription(s) as above. Please process accordingly. Kori Sparks LPN documented in this encounter [facility] 06-29-2025 Telephone encounter Note I attached RX for Lancets. RX's have were already attached for Acc-chek meter and test strips. [facility] 06-29-2025 Miscellaneous Notes I attached RX for Lancets. RX's have were already attached for Acc-chek meter and test strips. documented in this encounter [facility] 06-28-2025 Instructions Mary Kate Barber APRN.MANAGER NEWS - 06/28/2025 3:14 PM EDT Start victoza 0.6 mg daily, if tolerated (nausea, vomiting, diarrhea), after one week, increase to 1.2 mg daily. If tolerated, after one week, increase to 1.8 mg daily. If you should not tolerate the higher dose, resume lower tolerated dose. Continue farxiga Continue tresiba 70 units daily at noon Novolog Breakfast 20 units Lunch 20 units Dinner 20 units Plus add novolog with the three meals per the scale below if needed: If Blood Glucose (mg/dL) is < 150 Give 0 units 151-200 Give 1 unit 201-250 Give 2 units 251-300 Give 3 units 301-350 Give 4 units >351 Give 5 units Follow up in 3 months Mary Kate Barber, MSN, [employer] MAINTENANCE SUPERVISOR, [employer]PATCH SUPERVISOR-[employer], [facility] Endocrinology [facility] Medical Office [facility]/[address] [place], [place] [address] Fax: documented in this encounter [facility] 06-28-2025 Telephone encounter Note ADWOA Bales requesting refills as follows: One Touch is no longer covered and Accu chek is. Requested Prescriptions Pending Prescriptions Disp Refills ACCU-CHEK GUIDE GLUCOSE METER 1 each 0 Sig: Use as instructed to test blood sugar 5 times daily. DX: E11.42, insulin dependent ACCU-CHEK GUIDE TEST STRIPS test strip 500 each 3 Sig: Use as instructed to test blood sugar 5 times daily. DX: E11.42, insulin dependent Please review and advise. Gaby Slater MA [facility] 06-28-2025 Miscellaneous Notes ADWOA Bales requesting refills as follows: One Touch is no longer covered and Accu chek is. Requested Prescriptions Pending Prescriptions Disp Refills ACCU-CHEK GUIDE GLUCOSE METER 1 each 0 Sig: Use as instructed to test blood sugar 5 times daily. DX: E11.42, insulin dependent ACCU-CHEK GUIDE TEST STRIPS test strip 500 each 3 Sig: Use as instructed to test blood sugar 5 times daily. DX: E11.42, insulin dependent Please review and advise. Gaby Slater MA documented in this encounter [facility] 06-28-2025 History of Present illness Narrative Reason for Consultation: DM Type 2 Referring Physician: Luli Perdomo MD [address] [facility] [address] HISTORY OF PRESENT ILLNESS; Ms. Valadez is a 69 year old female presenting for follow up regarding DM Type 2. She was initially diagnosed with diabetes approx. 2000. She has been on insulin since at least age 55. LV 03/27/25 A1C today is 8.6 History of diabetes, HTN, HLD, peripheral neuropathy, obesity, allergies, thyroid nodule, BELA, NSTEMI s/p stent , microalbuminuria, CKD Denies pancreatitis, medullary TC, gastroparesis Has had more stress over the summer. needs prostate surgery and has had a catheter. Feels she is binge eating at night. Did not tolerate weekly GLP1's Went to [facility] and plans to start hormone supplement for hot flashes. States they also wanted her on thyroid medication to help with energy but it was costly and she declined it. They also put her on vitamin D. CGM was cost prohibitive. She wants to be able to check her glucose 5x per day--with 3 meals, bedtime and AM snack time--however insurance will only pay for 3 strips per day. She is under the care of nephrology, Dr. Perdomo and cardiology Dr. Dodd. Her current diabetes regimen is: Tresiba (u200 pen) 70 units daily at noon Farxiga 10 mg daily Novolog 20 units TID meals plus SS If Blood Glucose (mg/dL) is < 150 Give 0 units 151-200 Give 1 unit 201-250 Give 2 units 251-300 Give 3 units 301-350 Give 4 units >351 Give 5 units Previous DM medications: Glyburide actos janumet Glucotrol Metformin--stomach upset. Levemir--ineffective Trulicity --stomach issues. Ozempic--severe constipation Mounjaro--severe constipation Regarding symptoms of hyperglycemia, she is not experiencing polyuria and polydipsia. Exercise:GURDEEP'ambika Cox is checking her blood glucose 2-3 times per day She did bring a logbook today for review: Consumes one main meal in the evening then snacks through out evening. Fasting: about 200 this AM, 110 yesterday but mostly close to 200. Bedtime: 200's Hypoglycemia frequency: occasionally; feels symptomatically low even in 100 range Hypoglycemia awareness: Yes Overall, the patient has no acute complaints at this time. HTN: Intolerant to KALIE ARB--Entresto HLD: Not currently on a statin. PAST MEDICAL HISTORY Diagnosis Date Arthritis Asthma CERVICAL DISC DISPLACMNT 02/03/2008 Chronic systolic heart failure (HCC) Coronary artery disease Degenerative disc disease Delayed emergence from anesthesia Diabetes mellitus type 2, controlled (HCC) Herniated disc HLD (hyperlipidemia) HTN (hypertension) Ischemic cardiomyopathy Migraines BELA (obstructive sleep apnea) Pericardial effusion (HCC) 04/13/2023 Thyroid nodule Unspecified essential hypertension Essential hypertension PAST SURGICAL HISTORY Procedure Laterality Date ADENOIDECTOMY PRIMARY <AGE 12 Adenoidectomy APPENDECTOMY W/ exploratory lap BACK SURGERY HX CHOLECYSTECTOMY PAST SURGICAL HISTORY OF WLE Left arm mass REMV CATARACT EXTRACAP,INSERT LENS Bilateral 09/2023 SKIN BX, 1 LESION 01/19/2025 Left Forearm TONSILLECTOMY PRIMARY/SECONDARY <AGE 12 Tonsillectomy VAGINAL HYSTERECTOMY UTERUS 250 GM/< Hysterectomy, vaginal FAMILY HISTORY Problem Relation Age of Onset Heart Mother Allergies Mother Arthritis Mother Asthma Mother Genitourinary () Mother bladder suspension in her 50's Hearing Loss Mother Hypertension Mother Lipids Mother Osteoporosis Mother Heart Father Cancer Father sarcoma Diabetes Father Hearing Loss Father Hypertension Father Lipids Father Stroke Father TIA'S Heart Maternal Grandmother Heart Maternal Grandfather Heart Paternal Grandmother Diabetes Paternal Grandmother other (Goiter) Paternal Grandmother Heart Paternal Grandfather Cancer Paternal Aunt I lost 11 aunts and uncles Cancer Paternal Uncle I lost 11 aunts and uncles Diabetes Paternal Aunt Diabetes Maternal Uncle Headache Daughter migraines Social History Tobacco Use Smoking status: Never Smokeless tobacco: Never Tobacco comments: Secondhand smoke exposure x 30 years (Father and 1st ) Substance Use Topics Alcohol use: Not Currently Drug use: No Current Outpatient Medications Medication Sig Dispense Refill progesterone micronized (PROMETRIUM) 100 mg capsule insulin needles, DISPOSABLE, (BD INSULIN PEN NEEDLE UF) 31 gauge x /16 Use 4 pen needles daily. DX: E11.29 400 each 3 clopidogrel (PLAVIX) 75 mg tablet TAKE 1 TABLET BY MOUTH EVERY DAY 90 tablet 3 TRESIBA FLEXTOUCH U-200 200 unit/mL (3 mL) injection Inject subcutaneously 70 units daily 12 mL 11 dapagliflozin propanediol (FARXIGA) 10 mg tablet Take 1 tablet by mouth daily with breakfast. 90 tablet 3 metroNIDAZOLE 0.75 % cream APPLY TO FACE EVERY MORNING AND EVERY EVENING ezetimibe (ZETIA) 10 mg tablet Take 1 tablet by mouth once daily. 90 tablet 3 carvedilol (COREG) 3.125 mg tablet TAKE 1 TABLET BY MOUTH TWICE A DAY WITH FOOD 180 tablet 3 ENTRESTO 24-26 mg tablet TAKE 1 TABLET BY MOUTH TWICE A DAY 180 tablet 1 blood sugar diagnostic (The [employer] GuidesTOUCH ULTRA TEST) test strip Use as instructed to test blood sugar 5 times daily. DX: E11.42, insulin dependent. 500 Strip 3 NOVOLOG FLEXPEN U-100 INSULIN 100 unit/mL (3 mL) INJECT SUBCUTANEOUSLY BREAKFAST 20 UNITS, LUNCH 20 UNITS , DINNER 20 UNITS PLUS SCALE UP TO 70 UNITS DAILY 30 mL 11 cycloSPORINE (RESTASIS) 0.05 % ophthalmic emulsion Use 1 Drop in both eyes two times a day. 180 Each 0 spironolactone (ALDACTONE) 25 mg tablet Take 0.5 tablets by mouth three times a week. nitroglycerin sublingual (NITROQUICK) 0.4 mg SL tablet Dissolve 1 tablet under the tongue every 5 minutes as needed for chest pain. 25 tablet 0 diphenhydrAMINE (BENADRYL ALLERGY) 12.5 mg/5 mL liquid Take 12.5 mg by mouth at bedtime as needed. Multivitamin capsule Take 1 capsule by mouth once daily. aspirin, enteric coated (ASPIRIN, ENTERIC COATED) 81 mg EC tablet Take 1 tablet by mouth once daily. gabapentin (NEURONTIN) 300 mg capsule Take 1 capsule by mouth daily at bedtime for 30 days. (Patient not taking: Reported on 06/28/2025) 30 capsule 0 No current facility-administered medications for this visit. Allergies As of Date: 06/28/2025 Allergen Noted Reaction ANIMAL DANDER 04/08/2023 Itching IMITREX [SUMATRIPTAN] 04/07/2023 Other: See Comments NARCOTICS [OPIOIDS - MORPHINE LOYD*02/08/2025 Other: See Comments OZEMPIC [SEMAGLUTIDE] 06/07/2024 Intolerance PROPOXYPHENE 02/23/2024 Other: See Comments STEROIDS [BETAMETHASONE DIPROPION*01/31/2008 STEROIDS [CORTICOSTEROIDS (GLUCOC*10/24/2024 Other: See Comments Fully Assessed 06/28/2025 REVIEW OF SYSTEMS: Answers submitted by the patient for this visit: Core Review of Systems (Submitted on 06/23/2025) Fever : No Night sweats: No Recent unintentional weight change: No Nasal Congestion: Yes Hearing Loss: No Vision Disturbance: Yes A cough: No Difficulty Breathing?: Yes Chest pain: Yes Irregular heartbeat: No Leg Swelling: No Nausea: No Diarrhea: No Black tarry stools: No Difficulty Urinating?: No Awaken at Night More Than Once to Urinate?: Yes Joint pain or stiffness: Yes Muscle aches: Yes Leg or Foot Discomfort at Night?: No A rash: No Dizziness: No Headaches: No Memory Loss: No Seizures: No PHYSICAL EXAM: BP 116/82 Pulse 81 Resp 16 Ht 167.4 cm (5' 5.91) Wt 88.9 kg (195 lb 15.8 oz) SpO2 97% BMI 31.72 kg/m2 Physical Exam Constitutional: Appearance: Normal appearance. She is obese. Cardiovascular: Rate and Rhythm: Normal rate and regular rhythm. Pulmonary: Effort: Pulmonary effort is normal. Breath sounds: Normal breath sounds. Skin: General: Skin is warm and dry. Neurological: Mental Status: She is alert and oriented to person, place, and time. Psychiatric: Mood and Affect: Mood normal. Behavior: Behavior normal. DATA: Creatinine Date Value Ref Range Status 06/23/2025 0.79 0.58 - 0.96 mg/dL Final Hemoglobin A1C (%) Date Value 04/15/2012 10.8 Hemoglobin A1C (POCT) (%) Date Value 03/27/2025 7.6 ) No components found for: URINEALBUMIN Cholesterol, Total (mg/dL) Date Value 06/23/2025 174 HDL Cholesterol (mg/dL) Date Value 06/23/2025 29 LDL Cholesterol, Calculated (mg/dL) Date Value 06/23/2025 106 LDL Cholesterol Calculated, Nonfasting (mg/dL) Date Value 04/07/2023 120 Triglyceride (mg/dL) Date Value 06/23/2025 226 IMPRESSION: Ms. Valadez is a 69 year old female here for evaluation of DM Type 2 complicated by hypertension, hyperlipidemia, CKD, peripheral neuropathy and microalbuminuria RECOMMENDATIONS (E11.29, R80.9, Z79.4) Type 2 diabetes mellitus with diabetic microalbuminuria, with long-term current use of insulin ([facility]) (primary encounter diagnosis) Comment: Glycemic control is above goal. Will try daily victoza to see if better tolerated. Urine protein will need updated at follow up . She is on SGLT2 and ARB Plan: liraglutide (VICTOZA) 0.6 mg/ 0.1 ml subcutaneous pen injector, insulin needles, DISPOSABLE, (BD INSULIN PEN NEEDLE UF) 31 gauge x 5/16 Start victoza 0.6 mg daily, if tolerated (nausea, vomiting, diarrhea), after one week, increase to 1.2 mg daily. If tolerated, after one week, increase to 1.8 mg daily. If you should not tolerate the higher dose, resume lower tolerated dose. Continue farxiga Continue tresiba 70 units daily at noon Novolog Breakfast 20 units Lunch 20 units Dinner 20 units Plus add novolog with the three meals per the scale below if needed: If Blood Glucose (mg/dL) is < 150 Give 0 units 151-200 Give 1 unit 201-250 Give 2 units 251-300 Give 3 units 301-350 Give 4 units >351 Give 5 units Follow up in 3 months (E11.42, Z79.4) Type 2 diabetes mellitus with diabetic polyneuropathy, with long-term current use of insulin ([facility]) Comment: Glycemic control is above goal. Will try daily victoza to see if better tolerated. Neuropathy is monitored and stable. Plan: HEMOGLOBIN A1C (POC), liraglutide (VICTOZA) 0.6 mg/ 0.1 ml subcutaneous pen injector, insulin needles, DISPOSABLE, (BD INSULIN PEN NEEDLE UF) 31 gauge x 5/16 Continue farxiga Continue tresiba 70 units daily at noon Novolog Breakfast 20 units Lunch 20 units Dinner 20 units Plus add novolog with the three meals per the scale below if needed: If Blood Glucose (mg/dL) is < 150 Give 0 units 151-200 Give 1 unit 201-250 Give 2 units 251-300 Give 3 units 301-350 Give 4 units >351 Give 5 units Follow up in 3 months (E11.649) Hypoglycemia due to type 2 diabetes mellitus (HCC) Comment/Plan: CGM cost prohibitive (E04.1) Nontoxic single thyroid nodule Comment/Plan: single subcentimeter nodule of 0.8 cm (8mm) She has been euthyroid. Advise against thyroid supplement if her thyroid function is normal due to age, cardiac history Managed per PCP (I10) Essential hypertension Comment/Plan: Managed per PCP/cardiology (E78.2) Mixed hyperlipidemia Comment/Plan: s/p NSTEMI with stent; Managed per PCP/cardiology (E66.9) Obesity, Class I, BMI 30-34.9 Comment: Body mass index is 31.72 kg/m . Plan: Encouraged increase dietary and exercise efforts as able Medical Decision Making: Level: 4 - Moderate Mary Kate Barber, MSN, SEWER MAINTENANCE SUPERVISOR, CITY DISPATCH SUPERVISOR-C, [facility] Endocrinology [facility] Medical Office [facility]/[address], [address] [place] [address] Fax: documented in this encounter [facility] 06-28-2025 Note HNO ID: [id number] Author: MARY KATE BARBER APRN.MANAGER NEWS Service: ? Author Type: Nurse Practitioner Type: Progress Notes Filed: 06/28/2025 15:27 Note Text: Reason for Consultation: DM Type 2 Referring Physician: Luli Perdomo MD [id number] [facility] [address] HISTORY OF PRESENT ILLNESS; Ms. Valadez is a 69 year old female presenting for follow up regarding DM Type 2. She was initially diagnosed with diabetes approx. 2000. She has been on insulin since at least age 55. LV 03/27/25 A1C today is 8.6 History of diabetes, HTN, HLD, peripheral neuropathy, obesity, allergies, thyroid nodule, BELA, NSTEMI s/p stent , microalbuminuria, CKD Denies pancreatitis, medullary TC, gastroparesis Has had more stress over the summer. needs prostate surgery and has had a catheter. Feels she is binge eating at night. Did not tolerate weekly GLP1's Went to [facility] and plans to start hormone supplement for hot flashes. States they also wanted her on thyroid medication to help with energy but it was costly and she declined it. They also put her on vitamin D. CGM was cost prohibitive. She wants to be able to check her glucose 5x per day--with 3 meals, bedtime and AM snack time--however insurance will only pay for 3 strips per day. She is under the care of nephrology, Dr. Perdomo and cardiology Dr. Dodd. Her current diabetes regimen is: Tresiba (u200 pen) 70 units daily at noon Farxiga 10 mg daily Novolog 20 units TID meals plus SS If Blood Glucose (mg/dL) is < 150 Give 0 units 151-200 Give 1 unit 201-250 Give 2 units 251-300 Give 3 units 301-350 Give 4 units >351 Give 5 units Previous DM medications: Glyburide actos janumet Glucotrol Metformin--stomach upset. Levemir--ineffective Trulicity --stomach issues. Ozempic--severe constipation Mounjaro--severe constipation Regarding symptoms of hyperglycemia, she is not experiencing polyuria and polydipsia. Exercise:GURDEEP'ambika Cox is checking her blood glucose 2-3 times per day She did bring a logbook today for review: Consumes one main meal in the evening then snacks through out evening. Fasting: about 200 this AM, 110 yesterday but mostly close to 200. Bedtime: 200's Hypoglycemia frequency: occasionally; feels symptomatically low even in 100 range Hypoglycemia awareness: Yes Overall, the patient has no acute complaints at this time. HTN: Intolerant to KALIE ARB--Entresto HLD: Not currently on a statin. PAST MEDICAL HISTORY Diagnosis Date Arthritis Asthma CERVICAL DISC DISPLACMNT 02/03/2008 Chronic systolic heart failure (HCC) Coronary artery disease Degenerative disc disease Delayed emergence from anesthesia Diabetes mellitus type 2, controlled (HCC) Herniated disc HLD (hyperlipidemia) HTN (hypertension) Ischemic cardiomyopathy Migraines BELA (obstructive sleep apnea) Pericardial effusion (HCC) 04/13/2023 Thyroid nodule Unspecified essential hypertension Essential hypertension PAST SURGICAL HISTORY Procedure Laterality Date ADENOIDECTOMY PRIMARY Adenoidectomy APPENDECTOMY W/ exploratory lap BACK SURGERY HX CHOLECYSTECTOMY PAST SURGICAL HISTORY OF WLE Left arm mass REMV CATARACT EXTRACAP,INSERT LENS Bilateral 09/2023 SKIN BX, 1 LESION 01/19/2025 Left Forearm TONSILLECTOMY PRIMARY/SECONDARY Tonsillectomy VAGINAL HYSTERECTOMY UTERUS 250 GM/< Hysterectomy, vaginal FAMILY HISTORY Problem Relation Age of Onset Heart Mother Allergies Mother Arthritis Mother Asthma Mother Genitourinary () Mother bladder suspension in her 50's Hearing Loss Mother Hypertension Mother Lipids Mother Osteoporosis Mother Heart Father Cancer Father sarcoma Diabetes Father Hearing Loss Father Hypertension Father Lipids Father Stroke Father TIA'S Heart Maternal Grandmother Heart Maternal Grandfather Heart Paternal Grandmother Diabetes Paternal Grandmother other (Goiter) Paternal Grandmother Heart Paternal Grandfather Cancer Paternal Aunt I lost 11 aunts and uncles Cancer Paternal Uncle I lost 11 aunts and uncles Diabetes Paternal Aunt Diabetes Maternal Uncle Headache Daughter migraines Social History Tobacco Use Smoking status: Never Smokeless tobacco: Never Tobacco comments: Secondhand smoke exposure x 30 years (Father and 1st ) Substance Use Topics Alcohol use: Not Currently Drug use: No Current Outpatient Medications Medication Sig Dispense Refill progesterone micronized (PROMETRIUM) 100 mg capsule insulin needles, DISPOSABLE, (BD INSULIN PEN NEEDLE UF) 31 gauge x 5/16 Use 4 pen needles daily. DX: E11.29 400 each 3 clopidogrel (PLAVIX) 75 mg tablet TAKE 1 TABLET BY MOUTH EVERY DAY 90 tablet 3 TRESIBA FLEXTOUCH U-200 200 unit/mL (3 mL) injection Inject subcutaneously 70 units daily 12 mL 11 dapagliflozin propanediol (FARXIGA) 10 mg tablet Take 1 tablet by mouth daily with breakfast. 90 t (more content not included)... [facility] 05-04-2025 Telephone encounter Note Received a fax from [facility] requesting a new RX for the pen needles. Attached is RX. Please send. Thank you [facility] 05-04-2025 Miscellaneous Notes Received a fax from [facility] requesting a new RX for the pen needles. Attached is RX. Please send. Thank you documented in this encounter [facility] 04-20-2025 Telephone encounter Note Patient's request for medication is as follows: Requested Prescriptions Pending Prescriptions Disp Refills clopidogrel (PLAVIX) 75 mg tablet [Pharmacy Med Name: CLOPIDOGREL 75 MG TABLET] 90 tablet 3 Sig: TAKE 1 TABLET BY MOUTH EVERY DAY Patient last seen on 02/15/2025. Prescription(s) as above. Please process accordingly. Keshia Pantoja LPN [facility] 04-20-2025 Miscellaneous Notes Patient's request for medication is as follows: Requested Prescriptions Pending Prescriptions Disp Refills clopidogrel (PLAVIX) 75 mg tablet [Pharmacy Med Name: CLOPIDOGREL 75 MG TABLET] 90 tablet 3 Sig: TAKE 1 TABLET BY MOUTH EVERY DAY Patient last seen on 02/15/2025. Prescription(s) as above. Please process accordingly. Keshia Pantoja LPN documented in this encounter [facility] 04-04-2025 Note HNO ID: [id number] Author: PHIL LAWTON MD Service: ? Author Type: Physician Type: Progress Notes Filed: 04/04/2025 16:26 Note Text: Phil Lawton M.D. Surgical Oncology [address] [place] [address], [place] [address] Kenny is a 69-year-old female presenting for follow-up of persistent left upper extremity neuropathic symptoms following excision of a subcutaneous hemangioma on the left forearm on 02/09/2025. Kenny reports persistent neuropathic symptoms in the left upper extremity, including paresthesias, numbness, and tingling extending from the arm to the hand, which she believes are related to her recent surgery. She notes that these symptoms were present prior to the excision but have worsened postoperatively. Additionally, she now experiences constant pain in the left hand, which was not present before the surgery. The pain is described as severe, particularly at night, affecting her sleep. She finds some relief when lying on her left arm, though this position is not her usual sleeping position. She has attempted various non-pharmacological interventions, including the application of ice and heat, use of a massager, and wrapping the arm, but these measures have not provided significant relief. She also completed three weeks of physical therapy without improvement. 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 She expresses reluctance to use medications that may affect her mental clarity. The ROS, medical, surgical, family, and social history were reviewed by Phil Lawton MD. BP 132/80 Pulse 97 Ht 167.4 cm (5' 5.9) SpO2 98% BMI 30.62 kg/m? No weight on file for this encounter. Physical Exam Constitutional: General: She is not in acute distress. HENT: Head: Normocephalic and atraumatic. Eyes: Pupils: Pupils are equal, round, and reactive to light. Neck: Thyroid: No thyromegaly. Trachea: No tracheal deviation. Cardiovascular: Rate and Rhythm: Normal rate and regular rhythm. Heart sounds: Normal heart sounds. Pulmonary: Effort: Pulmonary effort is normal. No respiratory distress. Breath sounds: Normal breath sounds. No stridor. Abdominal: General: There is no distension. Palpations: Abdomen is soft. Tenderness: There is no abdominal tenderness. Musculoskeletal: General: No deformity. Normal range of motion. Skin: General: Skin is warm and dry. Findings: No erythema or rash. Comments: Well healed surgical site with no swelling or signs of infection Neurological: Mental Status: She is alert and oriented to person, place, and time. Psychiatric: Mood and Affect: Affect normal. Judgment: Judgment normal. 1. 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 Symptoms include neuropathy, paresthesias, numbness, and tingling extending from the arm to the hand, which are unrelated to the previous surgery. Referred to Dr. Acosta, a hand surgeon, for further evaluation and management. Discussed potential use of gabapentin at a lower dose to be taken at night to alleviate nerve pain; patient agreed to try this approach. 2. Hemangioma of skin (D18.01) - Subcutaneous hemangioma of the forearm was excised on February 09, 2025. Post-operative MRI showed normal changes at the surgical site with no concerning findings. No further treatment required for the hemangioma at this time. Recording using ambient [employer] software for draft documentation of the visit was discussed with the patient/authorized insurance account representative; all questions welcomed and answered. Patient/authorized insurance account representative agreed to proceed Phil Lawton MD 04/04/2025 4:[address] [facility] 03-27-2025 History of Present illness Narrative Reason for Consultation: DM Type 2 Referring Physician: Luli Perdomo MD [address] [facility] [id number] HISTORY OF PRESENT ILLNESS; Ms. Valadez is a 69 year old female presenting for follow up regarding DM Type 2. She was initially diagnosed with diabetes approx. 2000. She has been on insulin since at least age 55. LV 12/21/24 A1C today is 7.6. Down from 8.3 in December History of diabetes, HTN, HLD, peripheral neuropathy, obesity, allergies, thyroid nodule, BELA, NSTEMI s/p stent , microalbuminuria, CKD Denies pancreatitis, medullary TC, gastroparesis Currently dealing with Bronchitis. Sick for 12 days so far. Was given ATB and steroids but has not yet started steroids due to concern from a reaction she had previously. Eating more fast food while sick. CGM was cost prohibitive. She wants to be able to check her glucose 5x per day--with 3 meals, bedtime and AM snack time--however insurance will only pay for 3 strips per day. She is under the care of nephrology, Dr. Perdomo and cardiology Dr. Dodd. Her current diabetes regimen is: Tresiba (u200 pen) 70 units daily at noon Farxiga 10 mg daily Novolog 20 units TID meals plus SS If Blood Glucose (mg/dL) is < 150 Give 0 units 151-200 Give 1 unit 201-250 Give 2 units 251-300 Give 3 units 301-350 Give 4 units >351 Give 5 units Previous DM medications: Glyburide actos janumet Glucotrol Metformin--stomach upset. Levemir--ineffective Trulicity --stomach issues. Ozempic--severe constipation Mounjaro--severe constipation Regarding symptoms of hyperglycemia, she is not experiencing polyuria and polydipsia. Exercise:GURDEEP'ambika Kenny is checking her blood glucose 3-4 times per day She did bring a logbook today for review: Fastin 10:30 AM : 141 1:30: lunch time: 234 acS (5-7:30 dinner): HS Hypoglycemia frequency: occasionally; feels symptomatically low even in 100 range Hypoglycemia awareness: Yes Overall, the patient has no acute complaints at this time. HTN: Intolerant to KALIE ARB--Entresto HLD: Not currently on a statin. PAST MEDICAL HISTORY Diagnosis Date Arthritis Asthma CERVICAL DISC DISPLACMNT 02/03/2008 Chronic systolic heart failure (HCC) Coronary artery disease Degenerative disc disease Delayed emergence from anesthesia Diabetes mellitus type 2, controlled (HCC) Herniated disc HLD (hyperlipidemia) HTN (hypertension) Ischemic cardiomyopathy Migraines BELA (obstructive sleep apnea) Pericardial effusion (HCC) 04/13/2023 Thyroid nodule Unspecified essential hypertension Essential hypertension PAST SURGICAL HISTORY Procedure Laterality Date ADENOIDECTOMY PRIMARY <AGE 12 Adenoidectomy APPENDECTOMY W/ exploratory lap BACK SURGERY HX CHOLECYSTECTOMY PAST SURGICAL HISTORY OF WLE Left arm mass REMV CATARACT EXTRACAP,INSERT LENS Bilateral 09/2023 SKIN BX, 1 LESION 01/19/2025 Left Forearm TONSILLECTOMY PRIMARY/SECONDARY <AGE 12 Tonsillectomy VAGINAL HYSTERECTOMY UTERUS 250 GM/< Hysterectomy, vaginal FAMILY HISTORY Problem Relation Age of Onset Heart Mother Allergies Mother Arthritis Mother Asthma Mother Genitourinary () Mother bladder suspension in her 50's Hearing Loss Mother Hypertension Mother Lipids Mother Osteoporosis Mother Heart Father Cancer Father sarcoma Diabetes Father Hearing Loss Father Hypertension Father Lipids Father Stroke Father TIA'S Heart Maternal Grandmother Heart Maternal Grandfather Heart Paternal Grandmother Diabetes Paternal Grandmother other (Goiter) Paternal Grandmother Heart Paternal Grandfather Cancer Paternal Aunt I lost 11 aunts and uncles Cancer Paternal Uncle I lost 11 aunts and uncles Diabetes Paternal Aunt Diabetes Maternal Uncle Headache Daughter migraines Social History Tobacco Use Smoking status: Never Smokeless tobacco: Never Tobacco comments: Secondhand smoke exposure x 30 years (Father and 1st ) Substance Use Topics Alcohol use: Not Currently Drug use: No Current Outpatient Medications Medication Sig Dispense Refill albuterol HFA (PROVENTIL HFA, VENTOLIN HFA) 90 mcg/actuation inhaler Inhale 2 puffs as instructed every 4 hours as needed for wheezing/shortness of breath. 1 each 0 Promethazine-DM (PHENERGAN-DM) 6.25-15 mg/5 mL syrup Take 5 mL by mouth four times a day as needed. 118 mL 0 methylPREDNISolone (MEDROL, ALBERTO,) 4 mg Dose-Pack Take as instructed per package. 21 tablet 0 albuterol HFA (PROVENTIL HFA, VENTOLIN HFA) 90 mcg/actuation inhaler Inhale 2 puffs as instructed every 6 hours as needed. azithromycin (ZITHROMAX) 250 mg tablet Take 250 mg by mouth. benzonatate (TESSALON PERLE) 100 mg capsule Take 1 capsule by mouth three times a day as needed. 21 capsule 0 Benzonatate 200 mg capsule metroNIDAZOLE 0.75 % cream APPLY TO FACE EVERY MORNING AND EVERY EVENING ezetimibe (ZETIA) 10 mg tablet Take 1 tablet by mouth once daily. 90 tablet 3 carvedilol (COREG) 3.125 mg tablet TAKE 1 TABLET BY MOUTH TWICE A DAY WITH FOOD 180 tablet 3 ENTRESTO 24-26 mg tablet TAKE 1 TABLET BY MOUTH TWICE A DAY 180 tablet 1 blood sugar diagnostic (INcubesUCH ULTRA TEST) test strip Use as instructed to test blood sugar 5 times daily. DX: E11.42, insulin dependent. 500 Strip 3 NOVOLOG FLEXPEN U-100 INSULIN 100 unit/mL (3 mL) INJECT SUBCUTANEOUSLY BREAKFAST 20 UNITS, LUNCH 20 UNITS , DINNER 20 UNITS PLUS SCALE UP TO 70 UNITS DAILY 30 mL 11 Diclofenac Sodium 3 % gel Apply 0.5 g to affected area two times a day. 100 g 0 cycloSPORINE (RESTASIS) 0.05 % ophthalmic emulsion Use 1 Drop in both eyes two times a day. 180 Each 0 spironolactone (ALDACTONE) 25 mg tablet Take 0.5 tablets by mouth three times a week. nitroglycerin sublingual (NITROQUICK) 0.4 mg SL tablet Dissolve 1 tablet under the tongue every 5 minutes as needed for chest pain. 25 tablet 0 TRESIBA FLEXTOUCH U-200 200 unit/mL (3 mL) injection Inject subcutaneously 70 units daily 12 mL 11 dapagliflozin propanediol (FARXIGA) 10 mg tablet Take 1 tablet by mouth daily with breakfast. 90 tablet 3 clopidogrel (PLAVIX) 75 mg tablet Take 1 tablet by mouth once daily. 90 tablet 3 diphenhydrAMINE (BENADRYL ALLERGY) 12.5 mg/5 mL liquid Take 12.5 mg by mouth at bedtime as needed. insulin needles, DISPOSABLE, (BD INSULIN PEN NEEDLE UF) 31 gauge x 03/30 Use 4 pen needles daily 400 Each 3 Multivitamin capsule Take 1 capsule by mouth once daily. aspirin, enteric coated (ASPIRIN, ENTERIC COATED) 81 mg EC tablet Take 1 tablet by mouth once daily. No current facility-administered medications for this visit. Allergies As of Date: 03/27/2025 Allergen Noted Reaction ANIMAL DANDER 04/08/2023 Itching IMITREX [SUMATRIPTAN] 04/07/2023 Other: See Comments NARCOTICS [OPIOIDS - MORPHINE LOYD*02/08/2025 Other: See Comments OZEMPIC [SEMAGLUTIDE] 06/07/2024 Intolerance PROPOXYPHENE 02/23/2024 Other: See Comments STEROIDS [BETAMETHASONE DIPROPION*01/31/2008 STEROIDS [CORTICOSTEROIDS (GLUCOC*10/24/2024 Other: See Comments Fully Assessed 03/27/2025 REVIEW OF SYSTEMS: Answers submitted by the patient for this visit: Core Review of Systems (Submitted on 03/26/2025) Fever : No Night sweats: No Recent unintentional weight change: No Nasal Congestion: Yes Hearing Loss: No Vision Disturbance: Yes A cough: Yes Difficulty Breathing?: Yes Chest pain: No Irregular heartbeat: No Leg Swelling: No Nausea: No Diarrhea: No Black tarry stools: No Difficulty Urinating?: No Awaken at Night More Than Once to Urinate?: No Joint pain or stiffness: Yes Muscle aches: Yes Leg or Foot Discomfort at Night?: No A rash: No Dizziness: No Headaches: Yes Memory Loss: No Seizures: No PHYSICAL EXAM: BP 137/86 Pulse 91 Resp 16 Ht 167.6 cm (5' 5.98) Wt 85.8 kg (189 lb 2.5 oz) SpO2 98% BMI 30.55 kg/m2 Physical Exam Constitutional: Appearance: Normal appearance. She is obese. Cardiovascular: Rate and Rhythm: Normal rate and regular rhythm. Pulmonary: Effort: Pulmonary effort is normal. Breath sounds: Normal breath sounds. Skin: General: Skin is warm and dry. Neurological: Mental Status: She is alert and oriented to person, place, and time. Psychiatric: Mood and Affect: Mood normal. Behavior: Behavior normal. DATA: Creatinine Date Value Ref Range Status 01/04/2025 0.80 0.58 - 0.96 mg/dL Final Hemoglobin A1C (%) Date Value 04/15/2012 10.8 Hemoglobin A1C (POCT) (%) Date Value 03/27/2025 7.6 ) No components found for: URINEALBUMIN Cholesterol, Total (mg/dL) Date Value 01/04/2025 164 HDL Cholesterol (mg/dL) Date Value 01/04/2025 28 LDL Cholesterol, Calculated (mg/dL) Date Value 01/04/2025 107 LDL Cholesterol Calculated, Nonfasting (mg/dL) Date Value 04/07/2023 120 Triglyceride (mg/dL) Date Value 01/04/2025 144 IMPRESSION: Ms. Valadez is a 69 year old female here for evaluation of DM Type 2 complicated by hypertension, hyperlipidemia, CKD, peripheral neuropathy and microalbuminuria RECOMMENDATIONS (E11.29, R80.9, Z79.4) Type 2 diabetes mellitus with diabetic microalbuminuria, with long-term current use of insulin ([facility]) (primary encounter diagnosis) Comment: A1C is improving. Limited BG data to review today. Intolerant to GLP1 Plan: TRESIBA FLEXTOUCH U-200 200 unit/mL (3 mL) injection, dapagliflozin propanediol (FARXIGA) 10 mg tablet Continue tresiba, farxiga and novolog Follow up in 3-4 months (E11.42, Z79.4) Type 2 diabetes mellitus with diabetic polyneuropathy, with long-term current use of insulin ([facility]) Comment: A1C is improving. Limited BG data to review today. Neuropathy is monitored and stable. Plan: HEMOGLOBIN A1C (POC), TRESIBA FLEXTOUCH U-200 200 unit/mL (3 mL) injection, dapagliflozin propanediol (FARXIGA) 10 mg tablet Continue tresiba, farxiga and novolog Follow up in 3-4 months (E11.21, Z79.4) Type 2 diabetes mellitus with diabetic nephropathy, with long-term current use of insulin ([facility]) Comment: A1C is improving. Limited BG data to review today. Renal disease is monitored and stable. She is on SGLT2 and ARB Plan: Continue tresiba, farxiga and novolog Follow up in 3-4 months (E11.649) Hypoglycemia due to type 2 diabetes mellitus ([facility]) Comment/Plan: CGM cost prohibitive (E04.1) Nontoxic single thyroid nodule Comment/Plan: single subcentimeter nodule of 0.8 cm (8mm) She has been euthyroid. Managed per PCP (I10) Essential hypertension Comment/Plan: Managed per PCP/cardiology (E78.2) Mixed hyperlipidemia Comment/Plan: s/p NSTEMI with stent; Managed per PCP/cardiology (E66.9) Obesity, Class I, BMI 30-34.9 Comment: Body mass index is 30.55 kg/m . Plan: Encouraged increase dietary and exercise efforts as able Medical Decision Making: Level: 4 - Moderate Mary Kate Barber, MSN, [employer] SUPERVISOR, [employer]PER[employer]OR-[employer], [facility] Endocrinology [facility] Medical Office Building/[address], [address] [place], [place] [address] Fax: documented in this encounter [facility] 03-27-2025 Note HNO ID: [id number] Author: MARY KATE BARBER APRN.MANAGER NEWS Service: ? Author Type: Nurse Practitioner Type: Progress Notes Filed: 03/27/2025 15:36 Note Text: Reason for Consultation: DM Type 2 Referring Physician: Luli Perdomo MD [address] [facility] [address] HISTORY OF PRESENT ILLNESS; Ms. Valadez is a 69 year old female presenting for follow up regarding DM Type 2. She was initially diagnosed with diabetes approx. 2000. She has been on insulin since at least age 55. 12/21/24 A1C today is 7.6. Down from 8.3 in December History of diabetes, HTN, HLD, peripheral neuropathy, obesity, allergies, thyroid nodule, BELA, NSTEMI s/p stent , microalbuminuria, CKD Denies pancreatitis, medullary TC, gastroparesis Currently dealing with Bronchitis. Sick for 12 days so far. Was given ATB and steroids but has not yet started steroids due to concern from a reaction she had previously. Eating more fast food while sick. CGM was cost prohibitive. She wants to be able to check her glucose 5x per day--with 3 meals, bedtime and AM snack time--however insurance will only pay for 3 strips per day. She is under the care of nephrology, Dr. Perdomo and cardiology Dr. Dodd. Her current diabetes regimen is: Tresiba (u200 pen) 70 units daily at noon Farxiga 10 mg daily Novolog 20 units TID meals plus SS If Blood Glucose (mg/dL) is < 150 Give 0 units 151-200 Give 1 unit 201-250 Give 2 units 251-300 Give 3 units 301-350 Give 4 units >351 Give 5 units Previous DM medications: Glyburide actos janumet Glucotrol Metformin--stomach upset. Levemir--ineffective Trulicity --stomach issues. Ozempic--severe constipation Mounjaro--severe constipation Regarding symptoms of hyperglycemia, she is not experiencing polyuria and polydipsia. Exercise:GURDEEP'ambika Cox is checking her blood glucose 3-4 times per day She did bring a logbook today for review: Fastin 10:30 AM : 141 1:30: lunch time: 234 acS (5-7:30 dinner): HS Hypoglycemia frequency: occasionally; feels symptomatically low even in 100 range Hypoglycemia awareness: Yes Overall, the patient has no acute complaints at this time. HTN: Intolerant to KALIE ARB--Entresto HLD: Not currently on a statin. PAST MEDICAL HISTORY Diagnosis Date Arthritis Asthma CERVICAL DISC DISPLACMNT 02/03/2008 Chronic systolic heart failure (HCC) Coronary artery disease Degenerative disc disease Delayed emergence from anesthesia Diabetes mellitus type 2, controlled (HCC) Herniated disc HLD (hyperlipidemia) HTN (hypertension) Ischemic cardiomyopathy Migraines BELA (obstructive sleep apnea) Pericardial effusion (HCC) 04/13/2023 Thyroid nodule Unspecified essential hypertension Essential hypertension PAST SURGICAL HISTORY Procedure Laterality Date ADENOIDECTOMY PRIMARY Adenoidectomy APPENDECTOMY W/ exploratory lap BACK SURGERY HX CHOLECYSTECTOMY PAST SURGICAL HISTORY OF WLE Left arm mass REMV CATARACT EXTRACAP,INSERT LENS Bilateral 09/2023 SKIN BX, 1 LESION 01/19/2025 Left Forearm TONSILLECTOMY PRIMARY/SECONDARY Tonsillectomy VAGINAL HYSTERECTOMY UTERUS 250 GM/< Hysterectomy, vaginal FAMILY HISTORY Problem Relation Age of Onset Heart Mother Allergies Mother Arthritis Mother Asthma Mother Genitourinary () Mother bladder suspension in her 50's Hearing Loss Mother Hypertension Mother Lipids Mother Osteoporosis Mother Heart Father Cancer Father sarcoma Diabetes Father Hearing Loss Father Hypertension Father Lipids Father Stroke Father TIA'S Heart Maternal Grandmother Heart Maternal Grandfather Heart Paternal Grandmother Diabetes Paternal Grandmother other (Goiter) Paternal Grandmother Heart Paternal Grandfather Cancer Paternal Aunt I lost 11 aunts and uncles Cancer Paternal Uncle I lost 11 aunts and uncles Diabetes Paternal Aunt Diabetes Maternal Uncle Headache Daughter migraines Social History Tobacco Use Smoking status: Never Smokeless tobacco: Never Tobacco comments: Secondhand smoke exposure x 30 years (Father and 1st ) Substance Use Topics Alcohol use: Not Currently Drug use: No Current Outpatient Medications Medication Sig Dispense Refill albuterol HFA (PROVENTIL HFA, VENTOLIN HFA) 90 mcg/actuation inhaler Inhale 2 puffs as instructed every 4 hours as needed for wheezing/shortness of breath. 1 each 0 Promethazine-DM (PHENERGAN-DM) 6.25-15 mg/5 mL syrup Take 5 mL by mouth four times a day as needed. 118 mL 0 methylPREDNISolone (MEDROL, ALBERTO,) 4 mg Dose-Pack Take as instructed per package. 21 tablet 0 albuterol HFA (PROVENTIL HFA, VENTOLIN HFA) 90 mcg/actuation inhaler Inhale 2 puffs as instructed every 6 hours as needed. azithromycin (ZITHROMAX) 250 mg tablet Take 250 mg by mouth. benzonatate (TESSALON PERLE) 100 mg capsule Take 1 capsule by mouth three times a day as needed. 21 capsule (more content not included)... [facility] 03-26-2025 Instructions Valeriano Solitario PA-C - 03/26/2025 5:08 PM EDT A cough is your body's response to something that bothers your throat or airways. Many things can cause a cough. You might cough because of a cold or the flu, bronchitis, or asthma. Smoking, postnasal drip, allergies, and stomach acid that backs up into your throat also can cause coughs. A cough is a symptom, not a disease. Most coughs stop when the cause, such as a cold, goes away. You can take a few steps at home to cough less and feel better. Follow-up care is a gonzalez part of your treatment and safety. Be sure to make and go to all appointments, and call your doctor if you are having problems. It's also a good idea to know your test results and keep a list of the medicines you take. How can you care for yourself at home? - Drink lots of water and other fluids. This helps thin the mucus and soothes a dry or sore throat. Honey or lemon juice in hot water or tea may ease a dry cough. - Take cough medicine as directed by your doctor. - Prop up your head on pillows to help you breathe and ease a dry cough. - Try cough drops or hard candy to soothe a dry or sore throat. - Do not smoke. Avoid secondhand smoke. If you need help quitting, talk to your doctor about stop-smoking programs and medicines. These can increase your chances of quitting for good. When should you call for help? Call 911 anytime you think you may need emergency care. For example, call if: You have severe trouble breathing. Call your doctor now or seek immediate medical care if: You cough up blood. You have new or worse trouble breathing. You have a new or higher fever. You have a new rash. Watch closely for changes in your health, and be sure to contact your doctor if: You cough more deeply or more often, especially if you notice more mucus or a change in the color of your mucus. You have new symptoms, such as a sore throat, an earache, or sinus pain. You do not get better as expected. documented in this encounter [facility] 03-26-2025 Note HNO ID: [id number] Author: VALERIANO SOLITARIO PA-C Service: ? Author Type: Physician Project Lead Type: Progress Notes Filed: 03/26/2025 17:14 Note Text: [facility] Subjective Patient presents with: Fever Viral Syndrome: She went to and Pcp has had antibiotics finished the most recent dose yesterday . Shortness of Breath Kenny Valadez is a 69 year old female with a past medical history of diabetes, hypertension, CHF, and CAD who presents to [facility] today for evaluation of cough, shortness of breath, and wheezing. Patient states that she was seen by her primary care provider when this first started and was given a Z-Alberto. She states that she then followed up at [facility] in [place] when her symptoms were not getting better and was given a prescription for doxycycline. She states that she was also given a prescription for an albuterol inhaler but lost the inhaler. She states that she took the doxycycline as prescribed but does not feel better. Review of Systems Constitutional: Negative for chills, diaphoresis and fever. HENT: Negative for congestion and ear pain. Eyes: Negative for discharge and redness. Respiratory: Positive for cough, shortness of breath and wheezing. Skin: Negative for rash and wound. All other systems reviewed and are negative. Objective Wt 85.5 kg (188 lb 6.1 oz) BMI 30.41 kg/m? Physical Exam Vitals reviewed. Constitutional: General: She is not in acute distress. Appearance: Normal appearance. She is normal weight. She is not ill-appearing or toxic-appearing. Comments: The patient appears to be non-toxic, in no acute distress, and resting comfortably on the table. HENT: Head: Normocephalic and atraumatic. Cardiovascular: Rate and Rhythm: Normal rate and regular rhythm. Heart sounds: Normal heart sounds. No murmur heard. No friction rub. No gallop. Pulmonary: Effort: Pulmonary effort is normal. No respiratory distress. Breath sounds: Normal breath sounds. No wheezing. Musculoskeletal: General: Normal range of motion. Cervical back: Normal range of motion. Skin: General: Skin is warm and dry. Findings: No erythema or rash. Neurological: General: No focal deficit present. Mental Status: She is alert and oriented to person, place, and time. Mental status is at baseline. Psychiatric: Mood and Affect: Mood normal. Behavior: Behavior normal. Thought Content: Thought content normal. MDM Lungs are clear to auscultation bilaterally. Patient is talking in full and complete sentences. Patient's oxygen saturation is 98% on room air. Suspect symptoms are due to viral infection. Patient counseled regarding suspected diagnosis and given a prescription for albuterol inhaler and Promethazine DM. Patient does have steroids listed as an allergy but states that it is only when she used an oral steroid rinse. She states that she has taken steroid pills in the past without issue and feels that she needs steroids now. Patient given a prescription for Medrol Dosepak. Advised to follow-up with primary care as needed. ASSESSMENT/PLAN: 1. Persistent cough - ICD9: 786.2, ICD10: R05.3 - ALBUTEROL SULFATE HFA 90 MCG/ACTUATION AEROSOL INHALER - PROMETHAZINE-DM 6.25 MG-15 MG/5 ML ORAL SYRUP - METHYLPREDNISOLONE 4 MG TABLETS IN A DOSE PACK Medical Decision Making: Problems: Low: Acute, uncomplicated illness or injury Risk: Minimal: Minimal risk from testing/treatment Moderate: Drug management Medical Decision Making Level: 3 - Low I spent a total of 20 minutes on the date of the service which included preparing to see the patient, [id number] patient care, completing clinical documentation, performing a medically appropriate examination, counseling and educating the patient/family/caregiver, and ordering medications, tests, or procedures. Valeriano Solitario PA-C Procedures [facility] 03-26-2025 History of Present illness Narrative [facility] Subjective Patient presents with: Fever Viral Syndrome: She went to and Pcp has had antibiotics finished the most recent dose yesterday . Shortness of Breath Kenny Valadez is a 69 year old female with a past medical history of diabetes, hypertension, CHF, and CAD who presents to [facility] today for evaluation of cough, shortness of breath, and wheezing. Patient states that she was seen by her primary care provider when this first started and was given a Z-Alberto. She states that she then followed up at [facility] in [place] when her symptoms were not getting better and was given a prescription for doxycycline. She states that she was also given a prescription for an albuterol inhaler but lost the inhaler. She states that she took the doxycycline as prescribed but does not feel better. Review of Systems Constitutional: Negative for chills, diaphoresis and fever. HENT: Negative for congestion and ear pain. Eyes: Negative for discharge and redness. Respiratory: Positive for cough, shortness of breath and wheezing. Skin: Negative for rash and wound. All other systems reviewed and are negative. Objective Wt 85.5 kg (188 lb 6.1 oz) BMI 30.41 kg/m Physical Exam Vitals reviewed. Constitutional: General: She is not in acute distress. Appearance: Normal appearance. She is normal weight. She is not ill-appearing or toxic-appearing. Comments: The patient appears to be non-toxic, in no acute distress, and resting comfortably on the table. HENT: Head: Normocephalic and atraumatic. Cardiovascular: Rate and Rhythm: Normal rate and regular rhythm. Heart sounds: Normal heart sounds. No murmur heard. No friction rub. No gallop. Pulmonary: Effort: Pulmonary effort is normal. No respiratory distress. Breath sounds: Normal breath sounds. No wheezing. Musculoskeletal: General: Normal range of motion. Cervical back: Normal range of motion. Skin: General: Skin is warm and dry. Findings: No erythema or rash. Neurological: General: No focal deficit present. Mental Status: She is alert and oriented to person, place, and time. Mental status is at baseline. Psychiatric: Mood and Affect: Mood normal. Behavior: Behavior normal. Thought Content: Thought content normal. MDM Lungs are clear to auscultation bilaterally. Patient is talking in full and complete sentences. Patient's oxygen saturation is 98% on room air. Suspect symptoms are due to viral infection. Patient counseled regarding suspected diagnosis and given a prescription for albuterol inhaler and Promethazine DM. Patient does have steroids listed as an allergy but states that it is only when she used an oral steroid rinse. She states that she has taken steroid pills in the past without issue and feels that she needs steroids now. Patient given a prescription for Medrol Dosepak. Advised to follow-up with primary care as needed. ASSESSMENT/PLAN: 1. Persistent cough - ICD9: 786.2, ICD10: R05.3 - ALBUTEROL SULFATE HFA 90 MCG/ACTUATION AEROSOL INHALER - PROMETHAZINE-DM 6.25 MG-15 MG/5 ML ORAL SYRUP - METHYLPREDNISOLONE 4 MG TABLETS IN A DOSE PACK Medical Decision Making: Problems: Low: Acute, uncomplicated illness or injury Risk: Minimal: Minimal risk from testing/treatment Moderate: Drug management Medical Decision Making Level: 3 - Low I spent a total of 20 minutes on the date of the service which included preparing to see the patient, [id number] patient care, completing clinical documentation, performing a medically appropriate examination, counseling and educating the patient/family/caregiver, and ordering medications, tests, or procedures. Valeriano Solitario PA-C Procedures documented in this encounter [facility] 03-18-2025 Note SARS-COV-2 (AGENT OF COVID-19) RNA: Not detected INFLUENZA A RNA: Not detected INFLUENZA B RNA: Not detected RESPIRATORY SYNCYTIAL VIRUS (RSV) RNA: Not detected [facility] Comment on above: Performed By: #### [id number] ####[facility] LABCLIA [id number] [address] [place] 03-18-2025 Note HNO ID: [id number] Author: ROBERT COLLADO PA Service: ? Author Type: Physician Project Lead Type: Progress Notes Filed: 03/18/2025 14:35 Note Text: [facility] Subjective Kenny Valadez is a 69 year old female. Patient presents with: Flu Like Symptoms: X2 days HPI 69-year-old female presents for cough, chest congestion, fever x 2 days. Patient states Wednesday started getting sick with cough and fever. Cough is dry. She has some shortness of breath. No chest pain. She feels congested in the chest. She has had fevers for the past 2 days. She has been taking Tylenol, Motrin. She saw her PCP on Wednesday and had a chest x-ray. She states she is unsure what the result of the chest x-ray was that she never called her. She states she was started on azithromycin prior to the x-ray being completed and she never got a call to stop the medication. She is on day 3 as of azithromycin with no improvement in symptoms. She denies any nasal congestion. She has no history of COPD or asthma. States her physician on Wednesday also gave her an inhaler which she has used. She does report minimal improvement with the inhaler. No other complaint. PAST MEDICAL HISTORY Diagnosis Date Arthritis Asthma CERVICAL DISC DISPLACMNT 02/03/2008 Chronic systolic heart failure (HCC) Coronary artery disease Degenerative disc disease Delayed emergence from anesthesia Diabetes mellitus type 2, controlled (HCC) Herniated disc HLD (hyperlipidemia) HTN (hypertension) Ischemic cardiomyopathy Migraines BELA (obstructive sleep apnea) Pericardial effusion (HCC) 04/13/2023 Thyroid nodule Unspecified essential hypertension Essential hypertension PAST SURGICAL HISTORY Procedure Laterality Date ADENOIDECTOMY PRIMARY Adenoidectomy APPENDECTOMY W/ exploratory lap BACK SURGERY HX CHOLECYSTECTOMY PAST SURGICAL HISTORY OF WLE Left arm mass REMV CATARACT EXTRACAP,INSERT LENS Bilateral 09/2023 SKIN BX, 1 LESION 01/19/2025 Left Forearm TONSILLECTOMY PRIMARY/SECONDARY Tonsillectomy VAGINAL HYSTERECTOMY UTERUS 250 GM/< Hysterectomy, vaginal ALLERGIES Animal Dander, Imitrex [Sumatriptan], Narcotics [Opioids - Morphine Analogues], Ozempic [Semaglutide], Propoxyphene, Steroids [Betamethasone Dipropionate], and Steroids [Corticosteroids (Glucocorticoids)] MEDICATIONS albuterol HFA (PROVENTIL HFA, VENTOLIN HFA) 90 mcg/actuation inhaler Inhale 2 puffs as instructed every 6 hours as needed. azithromycin (ZITHROMAX) 250 mg tablet Take 250 mg by mouth. Benzonatate 200 mg capsule metroNIDAZOLE 0.75 % cream APPLY TO FACE EVERY MORNING AND EVERY EVENING ezetimibe (ZETIA) 10 mg tablet Take 1 tablet by mouth once daily. carvedilol (COREG) 3.125 mg tablet TAKE 1 TABLET BY MOUTH TWICE A DAY WITH FOOD ENTRESTO 24-26 mg tablet TAKE 1 TABLET BY MOUTH TWICE A DAY blood sugar diagnostic ([employer] ULTRA TEST) test strip Use as instructed to test blood sugar 5 times daily. DX: E11.42, insulin dependent. NOVOLOG FLEXPEN U-100 INSULIN 100 unit/mL (3 mL) INJECT SUBCUTANEOUSLY BREAKFAST 20 UNITS, LUNCH 20 UNITS , DINNER 20 UNITS PLUS SCALE UP TO 70 UNITS DAILY cycloSPORINE (RESTASIS) 0.05 % ophthalmic emulsion Use 1 Drop in both eyes two times a day. spironolactone (ALDACTONE) 25 mg tablet Take 0.5 tablets by mouth three times a week. nitroglycerin sublingual (NITROQUICK) 0.4 mg SL tablet Dissolve 1 tablet under the tongue every 5 minutes as needed for chest pain. TRESIBA FLEXTOUCH U-200 200 unit/mL (3 mL) injection Inject subcutaneously 70 units daily dapagliflozin propanediol (FARXIGA) 10 mg tablet Take 1 tablet by mouth daily with breakfast. clopidogrel (PLAVIX) 75 mg tablet Take 1 tablet by mouth once daily. diphenhydrAMINE (BENADRYL ALLERGY) 12.5 mg/5 mL liquid Take 12.5 mg by mouth at bedtime as needed. insulin needles, DISPOSABLE, (BD INSULIN PEN NEEDLE UF) 31 gauge x 5/16 Use 4 pen needles daily Multivitamin capsule Take 1 capsule by mouth once daily. aspirin, enteric coated (ASPIRIN, ENTERIC COATED) 81 mg EC tablet Take 1 tablet by mouth once daily. doxycycline monohydrate 100 mg tablet Take 1 tablet by mouth two times a day for 7 days. benzonatate (TESSALON PERLE) 100 mg capsule Take 1 capsule by mouth three times a day as needed. ipratropium bromide (ATROVENT) 42 mcg (0.06 %) nasal spray ibuprofen (MOTRIN) 800 mg tablet Diclofenac Sodium 3 % gel Apply 0.5 g to affected area two times a day. FAMILY HISTORY Problem Relation Age of Onset Heart Mother Allergies Mother Arthritis Mother Asthma Mother Genitourinary () Mother bladder suspension in her 50's Hearing Loss Mother Hypertension Mother Lipids Mother Osteoporosis Mother Heart Father Cancer Father sarcoma Diabetes Father Hearing Loss Father Hypertension Father Lipids Father Stroke Father TIA'S Heart Maternal Grandmother Heart Maternal Grandfather Heart Paternal Grandmother Di (more content not included)... [facility] 03-18-2025 History of Present illness Narrative [facility] Subjective Kenny Valadez is a 69 year old female. Patient presents with: Flu Like Symptoms: X2 days HPI 69-year-old female presents for cough, chest congestion, fever x 2 days. Patient states Wednesday started getting sick with cough and fever. Cough is dry. She has some shortness of breath. No chest pain. She feels congested in the chest. She has had fevers for the past 2 days. She has been taking Tylenol, Motrin. She saw her PCP on Wednesday and had a chest x-ray. She states she is unsure what the result of the chest x-ray was that she never called her. She states she was started on azithromycin prior to the x-ray being completed and she never got a call to stop the medication. She is on day 3 as of azithromycin with no improvement in symptoms. She denies any nasal congestion. She has no history of COPD or asthma. States her physician on Wednesday also gave her an inhaler which she has used. She does report minimal improvement with the inhaler. No other complaint. PAST MEDICAL HISTORY Diagnosis Date Arthritis Asthma CERVICAL DISC DISPLACMNT 02/03/2008 Chronic systolic heart failure (HCC) Coronary artery disease Degenerative disc disease Delayed emergence from anesthesia Diabetes mellitus type 2, controlled (HCC) Herniated disc HLD (hyperlipidemia) HTN (hypertension) Ischemic cardiomyopathy Migraines BELA (obstructive sleep apnea) Pericardial effusion (HCC) 04/13/2023 Thyroid nodule Unspecified essential hypertension Essential hypertension PAST SURGICAL HISTORY Procedure Laterality Date ADENOIDECTOMY PRIMARY <AGE 12 Adenoidectomy APPENDECTOMY W/ exploratory lap BACK SURGERY HX CHOLECYSTECTOMY PAST SURGICAL HISTORY OF WLE Left arm mass REMV CATARACT EXTRACAP,INSERT LENS Bilateral 09/2023 SKIN BX, 1 LESION 01/19/2025 Left Forearm TONSILLECTOMY PRIMARY/SECONDARY <AGE 12 Tonsillectomy VAGINAL HYSTERECTOMY UTERUS 250 GM/< Hysterectomy, vaginal ALLERGIES Animal Dander, Imitrex [Sumatriptan], Narcotics [Opioids - Morphine Analogues], Ozempic [Semaglutide], Propoxyphene, Steroids [Betamethasone Dipropionate], and Steroids [Corticosteroids (Glucocorticoids)] MEDICATIONS albuterol HFA (PROVENTIL HFA, VENTOLIN HFA) 90 mcg/actuation inhaler Inhale 2 puffs as instructed every 6 hours as needed. azithromycin (ZITHROMAX) 250 mg tablet Take 250 mg by mouth. Benzonatate 200 mg capsule metroNIDAZOLE 0.75 % cream APPLY TO FACE EVERY MORNING AND EVERY EVENING ezetimibe (ZETIA) 10 mg tablet Take 1 tablet by mouth once daily. carvedilol (COREG) 3.125 mg tablet TAKE 1 TABLET BY MOUTH TWICE A DAY WITH FOOD ENTRESTO 24-26 mg tablet TAKE 1 TABLET BY MOUTH TWICE A DAY blood sugar diagnostic ([employer] ULTRA TEST) test strip Use as instructed to test blood sugar 5 times daily. DX: E11.42, insulin dependent. NOVOLOG FLEXPEN U-100 INSULIN 100 unit/mL (3 mL) INJECT SUBCUTANEOUSLY BREAKFAST 20 UNITS, LUNCH 20 UNITS , DINNER 20 UNITS PLUS SCALE UP TO 70 UNITS DAILY cycloSPORINE (RESTASIS) 0.05 % ophthalmic emulsion Use 1 Drop in both eyes two times a day. spironolactone (ALDACTONE) 25 mg tablet Take 0.5 tablets by mouth three times a week. nitroglycerin sublingual (NITROQUICK) 0.4 mg SL tablet Dissolve 1 tablet under the tongue every 5 minutes as needed for chest pain. TRESIBA FLEXTOUCH U-200 200 unit/mL (3 mL) injection Inject subcutaneously 70 units daily dapagliflozin propanediol (FARXIGA) 10 mg tablet Take 1 tablet by mouth daily with breakfast. clopidogrel (PLAVIX) 75 mg tablet Take 1 tablet by mouth once daily. diphenhydrAMINE (BENADRYL ALLERGY) 12.5 mg/5 mL liquid Take 12.5 mg by mouth at bedtime as needed. insulin needles, DISPOSABLE, (BD INSULIN PEN NEEDLE UF) 31 gauge x 03/30 Use 4 pen needles daily Multivitamin capsule Take 1 capsule by mouth once daily. aspirin, enteric coated (ASPIRIN, ENTERIC COATED) 81 mg EC tablet Take 1 tablet by mouth once daily. doxycycline monohydrate 100 mg tablet Take 1 tablet by mouth two times a day for 7 days. benzonatate (TESSALON PERLE) 100 mg capsule Take 1 capsule by mouth three times a day as needed. ipratropium bromide (ATROVENT) 42 mcg (0.06 %) nasal spray ibuprofen (MOTRIN) 800 mg tablet Diclofenac Sodium 3 % gel Apply 0.5 g to affected area two times a day. FAMILY HISTORY Problem Relation Age of Onset Heart Mother Allergies Mother Arthritis Mother Asthma Mother Genitourinary () Mother bladder suspension in her 50's Hearing Loss Mother Hypertension Mother Lipids Mother Osteoporosis Mother Heart Father Cancer Father sarcoma Diabetes Father Hearing Loss Father Hypertension Father Lipids Father Stroke Father TIA'S Heart Maternal Grandmother Heart Maternal Grandfather Heart Paternal Grandmother Diabetes Paternal Grandmother other (Goiter) Paternal Grandmother Heart Paternal Grandfather Cancer Paternal Aunt I lost 11 aunts and uncles Cancer Paternal Uncle I lost 11 aunts and uncles Diabetes Paternal Aunt Diabetes Maternal Uncle Headache Daughter migraines Social History Tobacco Use Smoking status: Never Smokeless tobacco: Never Tobacco comments: Secondhand smoke exposure x 30 years (Father and 1st ) Substance Use Topics Alcohol use: Not Currently Drug use: No Review of Systems Constitutional: Positive for fever. Negative for chills. HENT: Negative for congestion, ear pain and sore throat. Respiratory: Positive for cough and shortness of breath. Cardiovascular: Negative for chest pain. Gastrointestinal: Negative for diarrhea and vomiting. Objective BP 131/72 Pulse 106 Temp (!) 38.2 C (100.7 F) (Left Tympanic) Resp 24 Wt 83 kg (182 lb 15.7 oz) SpO2 96% BMI 29.53 kg/m Physical Exam Vitals and nursing note reviewed. Constitutional: General: She is not in acute distress. Appearance: Normal appearance. She is not toxic-appearing. HENT: Right Ear: Tympanic membrane and ear canal normal. Left Ear: Tympanic membrane and ear canal normal. Nose: Nose normal. Mouth/Throat: Mouth: Mucous membranes are moist. Eyes: Conjunctiva/sclera: Conjunctivae normal. Cardiovascular: Rate and Rhythm: Normal rate and regular rhythm. Pulmonary: Effort: Pulmonary effort is normal. Breath sounds: Decreased breath sounds present. No wheezing, rhonchi or rales. Comments: + Persistent dry barking cough Skin: General: Skin is warm and dry. Neurological: Mental Status: She is alert. {ASSESSMENT/PLAN: 1. Lower resp. tract infection - ICD9: 519.8, ICD10: J22 - No XR available at time of exam. Patient return tomorrow for chest x-ray. -On azithromycin without improvement. Patient is tachypneic, febrile and slightly diminished breath sounds. Will change to doxycycline while awaiting chest x-ray result. -If XR is negative, stop antibiotic. -Did offer prednisone to help with cough, but patient states she is allergic to steroids. -Rx Tessalon Perles - XR CHEST 2V FRONTAL/LAT - COVID & INFLUENZA A/B & RSV PCR, ROUTINE - Out of window for Tamiflu Diagnosis and treatment plan were discussed and questions were answered to the patient's satisfaction. Pt acknowledged understanding of concepts and follow up plan. Specific signs and symptoms that would indicate the need for higher level of care were discussed in detail warranting prompt ER evaluation. ZULEMA Carranza History and Record Review External record(s) reviewed: prior outpatient record. Differential Diagnoses - Lower respiratory infection is more likely for the following reason(s): suggested by H&P - Bronchitis is more likely for the following reason(s): suggested by H&P Disposition The patient was discharged. Procedures documented in this encounter [facility] 03-15-2025 History of Present illness Narrative Radiology Service Progress Note DATE OF SERVICE: March 15, 2025 TIME: 11:12 AM PATIENT IDENTITY VERIFICATION COMPLETED USING TWO (2) STANDARD IDENTIFIERS: Name and Date of confirmed by patient verbally. FALL SCREENING: Has the patient had 2 falls in the last year or 1 fall with injury or currently using an Ambulatory Assistive Device (Walker, Cane, Wheelchair, Crutches, etc.)? No PATIENT GENDER DATA: Assigned female at . status: : No status: NO. PATIENT RELEVANT IMPLANT DATA REVIEWED: Yes PATIENT PRESENTS WITH AN IMPLANTABLE OR ATTACHED CORE ANALYST: No ALLERGIES: Reviewed and unchanged CONTRAST ALLERGY: NO. EXAM: MRI - CONTRAST TYPE: GROUP II PERIPHERAL IV DATA: Ambulatory: A peripheral IV was started in the Right hand with a Angio cath: 24 gauge. RADIOLOGY DEPARTMENT: MR; Exam(s) Completed: Upper MSK: Forearm, left. Lavender Administered: No SIGNATURE: RT Zara(R) PATIENT NAME: Kenny Valadez DATE: March 15, 2025 TIME: 11:12 AM documented in this encounter [facility] 03-15-2025 Note HNO ID: [id number] Author: ALEJANDRA OROPEZA RT(R) Service: ? Author Type: Technologist Type: Progress Notes Filed: 03/15/2025 11:13 Note Text: Radiology Service Progress Note DATE OF SERVICE: March 15, 2025 TIME: 11:12 AM PATIENT IDENTITY VERIFICATION COMPLETED USING TWO (2) STANDARD IDENTIFIERS: Name and Date of confirmed by patient verbally. FALL SCREENING: Has the patient had 2 falls in the last year or 1 fall with injury or currently using an Ambulatory Assistive Device (Walker, Cane, Wheelchair, Crutches, etc.)? No PATIENT GENDER DATA: Assigned female at . status: : No status: NO. PATIENT RELEVANT IMPLANT DATA REVIEWED: Yes PATIENT PRESENTS WITH AN IMPLANTABLE OR ATTACHED CORE ANALYST: No ALLERGIES: Reviewed and unchanged CONTRAST ALLERGY: NO. EXAM: MRI - CONTRAST TYPE: GROUP II PERIPHERAL IV DATA: Ambulatory: A peripheral IV was started in the Right hand with a Angio cath: 24 gauge. RADIOLOGY DEPARTMENT: MR; Exam(s) Completed: Upper MSK: Forearm, left. Lavender Administered: No SIGNATURE: RT Zara(R) PATIENT NAME: Kenny Valadez DATE: March 15, 2025 TIME: 11:12 AM [facility] 02-21-2025 Note HNO ID: [id number] Author: ASHVIN MUNGUIA PA-C Service: ? Author Type: Physician Project Lead Type: Progress Notes Filed: 02/22/2025 11:10 Note Text: Ashvin Munguia PA-C [facility] [address] [facility], [address] [place] [address] SUBJECTIVE CHIEF COMPLAINT: Post-op visit HISTORY OF PRESENT ILLNESS: Ms. Valadez is a 69 year old female who presents for post-operative follow up from wide local excision of left arm mass on 02/09/[address] Lawton. Since surgery Ms. Kenny Valadez has been recovering at home. She continues to report numbness and tingling in her posterior left upper arm and all her fingers that has not improved following surgery. She went to physical therapy per orthopedics recommendation without benefit. She also had a stress test to rule out cardiac etiology and it was normal. No fever/chills. No arm weakness. No swelling at incision site. OBJECTIVE There were no vitals taken for this visit. No weight on file for this encounter. Physical Exam: General: The patient is seated in no acute distress Respiratory: The patient is breathing comfortably on room air Skin: L forearm Incision intact without erythema, edema, or discharge. Non tender to palpation Neurologic: The patient is alert and oriented to person, place, and time. DATA: Pathology Report: FINAL DIAGNOSIS A. Soft tissue, left forearm mass, resection: - Benign hemangioma. ASSESSMENT Hemangioma LUE pain PLAN Ms. Valadez is a 69 year old female s/p WLE of upper extremity mass on 02/09/25 and is recovering well, but has ongoing LUE sypmtoms. - reviewed pathology report with patient, no evidence of malignancy noted - discussed continuing physical therapy for arm numbness and tingling - will request MRI to rule out cubital vs carpal tunnel, but will need to follow back up with orthopedics for definitive management - no further intervention from surgical oncology perspective Ashvin Munguia PA-C 02/22/2025 11:04 AM I spent a total of 30 minutes on the date of the service which included preparing to see the patient, [id number] patient care, completing clinical documentation, performing a medically appropriate examination, counseling and educating the patient/family/caregiver, ordering medications, tests, or procedures, and communicating results to the patient/family/caregiver. [facility] 02-18-2025 Note HNO ID: [id number] Author: JOSE LUIS JUNG APRN.[facility] Service: ? Author Type: Nurse Practitioner Type: Progress Notes Filed: 02/18/2025 14:17 Note Text: [facility] Subjective Kenny Valadez is a 69 year old female. Patient presents with: Cough: Sinus congestion and drainage x2 days Patient came in with complaints of 2 days worth of sinus congestion drainage sore throat and cough. Patient says usually drains down into her chest and causes bronchitis. Patient denies any significant lung history. Patient says she does have some shortness of breath. Patient says she usually has shortness of breath due to extensive cardiac history. The history is provided by the patient. No language and literature division chair was used. Cough Associated symptoms include sore throat. Review of Systems HENT: Positive for congestion, sinus pain and sore throat. Respiratory: Positive for cough. Objective BP 114/74 Pulse 97 Temp 37.3 ?C (99.1 ?F) Resp 18 Wt 83 kg (182 lb 15.7 oz) SpO2 96% BMI 29.53 kg/m? Physical Exam Constitutional: Appearance: Normal appearance. HENT: Right Ear: Tympanic membrane, ear canal and external ear normal. Left Ear: Tympanic membrane, ear canal and external ear normal. Nose: Nose normal. Mouth/Throat: Mouth: Mucous membranes are moist. Pharynx: Posterior oropharyngeal erythema present. Eyes: Pupils: Pupils are equal, round, and reactive to light. Cardiovascular: Rate and Rhythm: Normal rate and regular rhythm. Heart sounds: Normal heart sounds. Pulmonary: Effort: Pulmonary effort is normal. Breath sounds: Normal breath sounds. Neurological: Mental Status: She is alert. PAST MEDICAL HISTORY Diagnosis Date Arthritis Asthma CERVICAL DISC DISPLACMNT 02/03/2008 Chronic systolic heart failure (HCC) Coronary artery disease Degenerative disc disease Delayed emergence from anesthesia Diabetes mellitus type 2, controlled (HCC) Herniated disc HLD (hyperlipidemia) HTN (hypertension) Ischemic cardiomyopathy Migraines BELA (obstructive sleep apnea) Pericardial effusion (HCC) 04/13/2023 Thyroid nodule Unspecified essential hypertension Essential hypertension PAST SURGICAL HISTORY Procedure Laterality Date ADENOIDECTOMY PRIMARY Adenoidectomy APPENDECTOMY W/ exploratory lap BACK SURGERY HX CHOLECYSTECTOMY REMV CATARACT EXTRACAP,INSERT LENS Bilateral 09/2023 SKIN BX, 1 LESION 01/19/2025 Left Forearm TONSILLECTOMY PRIMARY/SECONDARY Tonsillectomy VAGINAL HYSTERECTOMY UTERUS 250 GM/< Hysterectomy, vaginal ALLERGIES Animal Dander, Imitrex [Sumatriptan], Narcotics [Opioids - Morphine Analogues], Ozempic [Semaglutide], Propoxyphene, Steroids [Betamethasone Dipropionate], and Steroids [Corticosteroids (Glucocorticoids)] MEDICATIONS ipratropium bromide (ATROVENT) 42 mcg (0.06 %) nasal spray ibuprofen (MOTRIN) 800 mg tablet Benzonatate 200 mg capsule metroNIDAZOLE 0.75 % cream APPLY TO FACE EVERY MORNING AND EVERY EVENING ezetimibe (ZETIA) 10 mg tablet Take 1 tablet by mouth once daily. carvedilol (COREG) 3.125 mg tablet TAKE 1 TABLET BY MOUTH TWICE A DAY WITH FOOD ENTRESTO 24-26 mg tablet TAKE 1 TABLET BY MOUTH TWICE A DAY blood sugar diagnostic ([employer] ULTRA TEST) test strip Use as instructed to test blood sugar 5 times daily. DX: E11.42, insulin dependent. NOVOLOG FLEXPEN U-100 INSULIN 100 unit/mL (3 mL) INJECT SUBCUTANEOUSLY BREAKFAST 20 UNITS, LUNCH 20 UNITS , DINNER 20 UNITS PLUS SCALE UP TO 70 UNITS DAILY Diclofenac Sodium 3 % gel Apply 0.5 g to affected area two times a day. cycloSPORINE (RESTASIS) 0.05 % ophthalmic emulsion Use 1 Drop in both eyes two times a day. spironolactone (ALDACTONE) 25 mg tablet Take 0.5 tablets by mouth three times a week. nitroglycerin sublingual (NITROQUICK) 0.4 mg SL tablet Dissolve 1 tablet under the tongue every 5 minutes as needed for chest pain. TRESIBA FLEXTOUCH U-200 200 unit/mL (3 mL) injection Inject subcutaneously 70 units daily dapagliflozin propanediol (FARXIGA) 10 mg tablet Take 1 tablet by mouth daily with breakfast. clopidogrel (PLAVIX) 75 mg tablet Take 1 tablet by mouth once daily. diphenhydrAMINE (BENADRYL ALLERGY) 12.5 mg/5 mL liquid Take 12.5 mg by mouth at bedtime as needed. insulin needles, DISPOSABLE, (BD INSULIN PEN NEEDLE UF) 31 gauge x 16 Use 4 pen needles daily Multivitamin capsule Take 1 capsule by mouth once daily. aspirin, enteric coated (ASPIRIN, ENTERIC COATED) 81 mg EC tablet Take 1 tablet by mouth once daily. FAMILY HISTORY Problem Relation Age of Onset Heart Mother Allergies Mother Arthritis Mother Asthma Mother Genitourinary () Mother bladder suspension in her 50's Hearing Loss Mother Hypertension Mother Lipids Mother Osteoporosis Mother Heart Father Cancer Father sarcoma Diabetes Father Hearing Loss Father Hypertension Father Lipids Father Stroke Father TIA'S Heart Maternal Gr (more content not included)... [facility] 02-18-2025 History of Present illness Narrative [facility] Subjective Kenny Valadez is a 69 year old female. Patient presents with: Cough: Sinus congestion and drainage x2 days Patient came in with complaints of 2 days worth of sinus congestion drainage sore throat and cough. Patient says usually drains down into her chest and causes bronchitis. Patient denies any significant lung history. Patient says she does have some shortness of breath. Patient says she usually has shortness of breath due to extensive cardiac history. The history is provided by the patient. No language and literature division chair was used. Cough Associated symptoms include sore throat. Review of Systems HENT: Positive for congestion, sinus pain and sore throat. Respiratory: Positive for cough. Objective BP 114/74 Pulse 97 Temp 37.3 C (99.1 F) Resp 18 Wt 83 kg (182 lb 15.7 oz) SpO2 96% BMI 29.53 kg/m Physical Exam Constitutional: Appearance: Normal appearance. HENT: Right Ear: Tympanic membrane, ear canal and external ear normal. Left Ear: Tympanic membrane, ear canal and external ear normal. Nose: Nose normal. Mouth/Throat: Mouth: Mucous membranes are moist. Pharynx: Posterior oropharyngeal erythema present. Eyes: Pupils: Pupils are equal, round, and reactive to light. Cardiovascular: Rate and Rhythm: Normal rate and regular rhythm. Heart sounds: Normal heart sounds. Pulmonary: Effort: Pulmonary effort is normal. Breath sounds: Normal breath sounds. Neurological: Mental Status: She is alert. PAST MEDICAL HISTORY Diagnosis Date Arthritis Asthma CERVICAL DISC DISPLACMNT 02/03/2008 Chronic systolic heart failure (HCC) Coronary artery disease Degenerative disc disease Delayed emergence from anesthesia Diabetes mellitus type 2, controlled (HCC) Herniated disc HLD (hyperlipidemia) HTN (hypertension) Ischemic cardiomyopathy Migraines BELA (obstructive sleep apnea) Pericardial effusion (HCC) 04/13/2023 Thyroid nodule Unspecified essential hypertension Essential hypertension PAST SURGICAL HISTORY Procedure Laterality Date ADENOIDECTOMY PRIMARY <AGE 12 Adenoidectomy APPENDECTOMY W/ exploratory lap BACK SURGERY HX CHOLECYSTECTOMY REMV CATARACT EXTRACAP,INSERT LENS Bilateral 09/2023 SKIN BX, 1 LESION 01/19/2025 Left Forearm TONSILLECTOMY PRIMARY/SECONDARY <AGE 12 Tonsillectomy VAGINAL HYSTERECTOMY UTERUS 250 GM/< Hysterectomy, vaginal ALLERGIES Animal Dander, Imitrex [Sumatriptan], Narcotics [Opioids - Morphine Analogues], Ozempic [Semaglutide], Propoxyphene, Steroids [Betamethasone Dipropionate], and Steroids [Corticosteroids (Glucocorticoids)] MEDICATIONS ipratropium bromide (ATROVENT) 42 mcg (0.06 %) nasal spray ibuprofen (MOTRIN) 800 mg tablet Benzonatate 200 mg capsule metroNIDAZOLE 0.75 % cream APPLY TO FACE EVERY MORNING AND EVERY EVENING ezetimibe (ZETIA) 10 mg tablet Take 1 tablet by mouth once daily. carvedilol (COREG) 3.125 mg tablet TAKE 1 TABLET BY MOUTH TWICE A DAY WITH FOOD ENTRESTO 24-26 mg tablet TAKE 1 TABLET BY MOUTH TWICE A DAY blood sugar diagnostic ([employer] ULTRA TEST) test strip Use as instructed to test blood sugar 5 times daily. DX: E11.42, insulin dependent. NOVOLOG FLEXPEN U-100 INSULIN 100 unit/mL (3 mL) INJECT SUBCUTANEOUSLY BREAKFAST 20 UNITS, LUNCH 20 UNITS , DINNER 20 UNITS PLUS SCALE UP TO 70 UNITS DAILY Diclofenac Sodium 3 % gel Apply 0.5 g to affected area two times a day. cycloSPORINE (RESTASIS) 0.05 % ophthalmic emulsion Use 1 Drop in both eyes two times a day. spironolactone (ALDACTONE) 25 mg tablet Take 0.5 tablets by mouth three times a week. nitroglycerin sublingual (NITROQUICK) 0.4 mg SL tablet Dissolve 1 tablet under the tongue every 5 minutes as needed for chest pain. TRESIBA FLEXTOUCH U-200 200 unit/mL (3 mL) injection Inject subcutaneously 70 units daily dapagliflozin propanediol (FARXIGA) 10 mg tablet Take 1 tablet by mouth daily with breakfast. clopidogrel (PLAVIX) 75 mg tablet Take 1 tablet by mouth once daily. diphenhydrAMINE (BENADRYL ALLERGY) 12.5 mg/5 mL liquid Take 12.5 mg by mouth at bedtime as needed. insulin needles, DISPOSABLE, (BD INSULIN PEN NEEDLE UF) 31 gauge x 16 Use 4 pen needles daily Multivitamin capsule Take 1 capsule by mouth once daily. aspirin, enteric coated (ASPIRIN, ENTERIC COATED) 81 mg EC tablet Take 1 tablet by mouth once daily. FAMILY HISTORY Problem Relation Age of Onset Heart Mother Allergies Mother Arthritis Mother Asthma Mother Genitourinary () Mother bladder suspension in her 50's Hearing Loss Mother Hypertension Mother Lipids Mother Osteoporosis Mother Heart Father Cancer Father sarcoma Diabetes Father Hearing Loss Father Hypertension Father Lipids Father Stroke Father TIA'S Heart Maternal Grandmother Heart Maternal Grandfather Heart Paternal Grandmother Diabetes Paternal Grandmother other (Goiter) Paternal Grandmother Heart Paternal Grandfather Cancer Paternal Aunt I lost 11 aunts and uncles Cancer Paternal Uncle I lost 11 aunts and uncles Diabetes Paternal Aunt Diabetes Maternal Uncle Headache Daughter migraines Social History Tobacco Use Smoking status: Never Smokeless tobacco: Never Tobacco comments: Secondhand smoke exposure x 30 years (Father and 1st ) Substance Use Topics Alcohol use: Not Currently Drug use: No {ASSESSMENT/PLAN: 1. URI, acute - ICD9: 465.9, ICD10: J06.9 (primary diagnosis) - Discussed viral etiology and rationale for treatment. - Symptomatic treatment with prn analgesia - Supportive care with fluids and rest - COVID-19 MOLECULAR (POC) - INFLUENZA A&B MOLECULAR (POC) 2. Sore throat - ICD9: 462, ICD10: J02.9 - Group A strep molecular testing negative - Discussed supportive care treatment with fluids, rest and analgesia. - STREP A MOLECULAR (POC) 3. SOB (shortness of breath) - ICD9: 786.05, ICD10: R06.02 4. Acute cough - ICD9: 786.2, ICD10: R05.1 X-ray was placed for patient in case she wanted to make sure she did not have a pneumonia. Patient is not sure if she wants that at this time. Patient wanted antibiotics. Did heavily educate patient about viral symptoms as its only been 2 days. Patient did not qualify for antibiotics. Patient says her primary care usually gives her antibiotics to get ahead of bronchitis. Instructed her that we can only treat by evidence-based practice. Patient was not understandable. Instructed patient to call her primary care in the morning. Jose Luis Jung APRN.CNP History and Record Review External record(s) reviewed: no prior records. Disposition The patient was discharged. Procedures documented in this encounter [facility] 02-15-2025 Instructions Yared Dodd MD - 02/15/2025 1:54 PM EDT We are going to try Ezetimibi 10 mg once per day We will repeat fasting blood work in 3-4 months documented in this encounter [facility] 02-15-2025 History of Present illness Narrative Images from the original note were not included. [facility] Cardiology Christine ([facility]) [address] [address] OUTPATIENT VISIT DATE 02/15/2025 PRIMARY CARE PHYSICIAN: David Wynn [address] [place] [id number] HISTORY OF PRESENT ILLNESS: Ms. Valadez is a 69 year old woman has a history of coronary artery disease and anterior wall myocardial infarction in March 2023 when she presented to hospital with atypical back pain and was found to have evidence of ST elevation underwent emergent cardiac catheterization. She has a resulting ischemic cardiomyopathy ejection fraction of 30%, chronic systolic congestive heart failure, and dyslipidemia. She has a history of diabetes which is insulin requiring. She presents to the office for routine follow-up. Patient is complaining of severe left shoulder and arm pain. Her symptoms are worsened by even minimal activity such as typing or moving her arm. There seems to be no exacerbating relieving factors. She had called the office with complaints and we had scheduled her for a stress test. However, her symptoms are noncardiac in nature. They are not relieved with rest and do not worsen with activity such as walking. She has not had symptoms concerning for congestive heart failure including PND, orthopnea, or lower extremity edema. She denies palpitations, lightheadedness, dizziness, or syncope. PAST MEDICAL HISTORY Diagnosis Date Arthritis Asthma CERVICAL DISC DISPLACMNT 02/03/2008 Chronic systolic heart failure (HCC) Coronary artery disease Degenerative disc disease Delayed emergence from anesthesia Diabetes mellitus type 2, controlled (HCC) Herniated disc HLD (hyperlipidemia) HTN (hypertension) Ischemic cardiomyopathy Migraines BELA (obstructive sleep apnea) Pericardial effusion (HCC) 04/13/2023 Thyroid nodule Unspecified essential hypertension Essential hypertension PAST SURGICAL HISTORY Procedure Laterality Date ADENOIDECTOMY PRIMARY <AGE 12 Adenoidectomy APPENDECTOMY W/ exploratory lap BACK SURGERY HX CHOLECYSTECTOMY REMV CATARACT EXTRACAP,INSERT LENS Bilateral 09/2023 SKIN BX, 1 LESION 01/19/2025 Left Forearm TONSILLECTOMY PRIMARY/SECONDARY <AGE 12 Tonsillectomy VAGINAL HYSTERECTOMY UTERUS 250 GM/< Hysterectomy, vaginal SOCIAL HISTORY Social History Tobacco Use Smoking status: Never Smokeless tobacco: Never Tobacco comments: Secondhand smoke exposure x 30 years (Father and 1st ) Substance Use Topics Alcohol use: Not Currently Drug use: No FAMILY HISTORY Problem Relation Age of Onset Heart Mother Allergies Mother Arthritis Mother Asthma Mother Genitourinary () Mother bladder suspension in her 50's Hearing Loss Mother Hypertension Mother Lipids Mother Osteoporosis Mother Heart Father Cancer Father sarcoma Diabetes Father Hearing Loss Father Hypertension Father Lipids Father Stroke Father TIA'S Heart Maternal Grandmother Heart Maternal Grandfather Heart Paternal Grandmother Diabetes Paternal Grandmother other (Goiter) Paternal Grandmother Heart Paternal Grandfather Cancer Paternal Aunt I lost 11 aunts and uncles Cancer Paternal Uncle I lost 11 aunts and uncles Diabetes Paternal Aunt Diabetes Maternal Uncle Headache Daughter migraines ALLERGIES: ALLERGIES Allergen Reactions Animal Dander Itching Itchy watery eyes, sneezing Imitrex [Sumatripta* Other: See Comments Narcotics [Opioids * Other: See Comments Most narcotics keep her awake for 3 days per pt, does well with tylenol with codeine per pt Ozempic [Semaglutid* Intolerance Constipation Propoxyphene Other: See Comments Steroids [Betametha* Steroids [Corticost* Other: See Comments blindness MEDICATIONS: carvedilol (COREG) 3.125 mg tablet TAKE 1 TABLET BY MOUTH TWICE A DAY WITH FOOD ENTRESTO 24-26 mg tablet TAKE 1 TABLET BY MOUTH TWICE A DAY blood sugar diagnostic ([employer] ULTRA TEST) test strip Use as instructed to test blood sugar 5 times daily. DX: E11.42, insulin dependent. NOVOLOG FLEXPEN U-100 INSULIN 100 unit/mL (3 mL) INJECT SUBCUTANEOUSLY BREAKFAST 20 UNITS, LUNCH 20 UNITS , DINNER 20 UNITS PLUS SCALE UP TO 70 UNITS DAILY cycloSPORINE (RESTASIS) 0.05 % ophthalmic emulsion Use 1 Drop in both eyes two times a day. spironolactone (ALDACTONE) 25 mg tablet Take 0.5 tablets by mouth three times a week. nitroglycerin sublingual (NITROQUICK) 0.4 mg SL tablet Dissolve 1 tablet under the tongue every 5 minutes as needed for chest pain. TRESIBA FLEXTOUCH U-200 200 unit/mL (3 mL) injection Inject subcutaneously 70 units daily dapagliflozin propanediol (FARXIGA) 10 mg tablet Take 1 tablet by mouth daily with breakfast. clopidogrel (PLAVIX) 75 mg tablet Take 1 tablet by mouth once daily. diphenhydrAMINE (BENADRYL ALLERGY) 12.5 mg/5 mL liquid Take 12.5 mg by mouth at bedtime as needed. insulin needles, DISPOSABLE, (BD INSULIN PEN NEEDLE UF) 31 gauge x 5/16 Use 4 pen needles daily Multivitamin capsule Take 1 capsule by mouth once daily. aspirin, enteric coated (ASPIRIN, ENTERIC COATED) 81 mg EC tablet Take 1 tablet by mouth once daily. ezetimibe (ZETIA) 10 mg tablet Take 1 tablet by mouth once daily. Diclofenac Sodium 3 % gel Apply 0.5 g to affected area two times a day. REVIEW OF SYSTEMS: Review of Systems Constitutional: Positive for malaise/fatigue. Negative for chills, fever and weight loss. HENT: Negative for hearing loss and sore throat. Eyes: Negative for blurred vision and double vision. Respiratory: Positive for shortness of breath. Cardiovascular: Negative. Gastrointestinal: Negative. Genitourinary: Negative for dysuria, frequency, hematuria and urgency. Musculoskeletal: Positive for myalgias. Skin: Negative. Neurological: Negative for dizziness, seizures, loss of consciousness, weakness and headaches. Endo/Heme/Allergies: Negative for environmental allergies. Does not bruise/bleed easily. Psychiatric/Behavioral: Negative for depression. PHYSICAL EXAMINATION: BP 118/72 Pulse 76 Resp 18 Ht 5' 6 (1.68m) Wt 186 lb (84.4kg) SpO2 98% BMI 30.04 kg/(m^2). General: Pleasant woman sitting appears comfortable no apparent distress she is alert and oriented x 3 HEENT: Carotid upstrokes are brisk bilateral without bruits no JVD appreciated. Pulmonary: Lungs are clear no rales, wheezes, rhonchi Cardiovascular: Normal S1, S2 with regular rate and rhythm. No murmurs, rubs, or gallops Extremities: Warm, well-perfused, no lower extremity edema. Patient with palpable left shoulder and upper arm tenderness to palpation CARDIOVASCULAR MEDICINE TESTING: ECG in the office 06/22/2023: Normal sinus rhythm with normal axis and intervals. Poor R wave progression anteriorly with Q waves through V1-V6. Cardiac Catheterization/PCI 04/08/2023: Post- Procedure Diagnosis:Occluded mid LAD otherwise mild to moderate diffuse coronary artery disease right coronary dominant system. Percutaneous coronary intervention with drug-eluting stent placed from the proximal to mid LAD using IVUS assistance. Abnormal left ventricular function with distal anteroapical wall hypokinesis with an EF 35-40% Hemodynamics: LVEDP: 26 mmHg LV - AORTA: No gradient. Coronary Angiography: Left Main: Mild diffuse disease Left Anterior Descending: Moderate to large caliber vessel. The mid vessel is occluded just past the first septal adjunct professor of voice. The proximal vessel has mild to moderate diffuse calcified disease on IVUS evaluation. Circumflex: Large-caliber nondominant vessel. The proximal vessel has mild to moderate diffuse disease with a large first obtuse marginal branch with mild disease. Second obtuse marginal branch has a proximal 50-60% stenosis. Right Coronary Artery: Moderate to large caliber dominant vessel with mild to moderate diffuse disease Collaterals: None Percutaneous coronary intervention: Occlusion of the mid LAD treated with balloon angioplasty and drug-eluting stent placement. A 3.0 x 48 mm Synergy stent was deployed in the lesion and postdilated 3.5 mm distally and 4.2 mm proximally with a good angiographic result. Intravascular ultrasound was performed prior to stenting and post stent for adequacy of stent deployment and complexity of disease. The mid to distal LAD has severe diffuse disease postintervention. LV Gram: LVEF: 35-40% Wall Motion: Distal anterior and apical wall hypokinesis Regadenoson Myoview Stress 02/05/2025: CONCLUSIONS: 1. SPECT Perfusion Study: Abnormal. 2. There is no scintigraphic evidence for inducible ischemia. 3. There is a large (>20%) fixed perfusion defect in the LAD territory. 4. Left ventricle is mildly dilated. The left ventricle systolic function is moderately decreased. 5. Right ventricle is normal in size. The right ventricle systolic function is normal. 6. This is a high risk scan due to calculated LVEF and area of scar/ischemia. Gated Stress FBP Gated Rest FBP LVEF % 41 40 Echocardiogram 06/26/2024: - Technically difficult exam due to body habitus. - Exam indication: CAD - The left ventricle is mildly dilated. Left ventricular systolic function is moderately decreased. EF = 33 5% (2D 4-ch.) Grade I left ventricular diastolic dysfunction. The apex is akinetic, possibly aneurysmal. Consider repeat limited ECHO with contrast to assess for thrombus. - The right ventricle is normal in size. - Right ventricular systolic function is normal. - Ascending aorta measures 3.3cm. - Exam was compared with the prior CC echocardiographic exam performed on 06/21/2023. Prior LVEF was 33% Echocardiogram 06/21/2023: - Exam indication: CAD - The left ventricle is mildly dilated. There is mild concentric left ventricular hypertrophy. Left ventricular systolic function is moderately decreased. EF = 33 5% (2D 4-ch.) Indeterminate left ventricular diastolic dysfunction. - The right ventricle is normal in size. Right ventricular systolic function is mildly decreased. - There are no significant valvular abnormalities. - Definity unavailable. - The patient has not had a prior CC echocardiographic exam for comparison. Echocardiogram 04/13/2023: - Technically difficult exam due to body habitus and suboptimal positioning. - Exam indication: NSTEMI - The left ventricle is normal in size. Left ventricular systolic function is moderately decreased. EF = 34 5% (2D biplane) Definity contrast used for endocardial border detection. Left ventricular diastolic function was not evaluated. Wall motion abnormalities as detailed above - The right ventricle is normal in size. Right ventricular systolic function is normal. - Exam was compared with the prior CC echocardiographic exam performed on 04/09/2023. Pericardial effusion has improved, only trivial today adjacent to RV. Otherwise no significant change Echocardiogram 04/08/2023: CONCLUSIONS: - Technically difficult exam due to body habitus and suboptimal positioning. - Exam indication: Chest Pain - The left ventricle is normal in size. Left ventricular systolic function is severely decreased. EF = 28 5% (2D 4-ch.) Definity contrast used for endocardial border detection. Left ventricular diastolic function was not evaluated. - The right ventricle is small. Right ventricular systolic function is normal. - The patient has not had a prior CC echocardiographic exam for comparison. IMPRESSION: Ms. Valadez is a 69 year old with a history of diabetes insulin requiring who was admitted to the hospital with chest pain and evidence of ST elevation myocardial infarction with drug-eluting stent placement to the LAD (03/2023). She has a resulting ischemic cardiomyopathy with ejection fraction of 30%, chronic systolic congestive heart failure. She is also treated for dyslipidemia. She presents to the office for follow-up. PLAN AND RECOMMENDATIONS: 1. 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 Atypical left arm and shoulder pain likely secondary to musculoskeletal. I have asked her to follow-up with orthopedics for further evaluation. - COMPREHENSIVE METABOLIC PANEL 2. Cardiomyopathy, ischemic - ICD9: 414.8, ICD10: I25.5 Ejection fraction 41% on recent stress test January 2025. Currently maintained on carvedilol, Farxiga, Entresto 3. Chronic systolic congestive heart failure (HCC) - ICD9: 428.22, 428.0, ICD10: I50.22 Well-controlled on low-sodium diet 4. Essential hypertension - ICD9: 401.9, ICD10: I10 5. Mixed hyperlipidemia - ICD9: 272.2, ICD10: E78.2 Patient with severe statin intolerance. Will attempt a trial of Zetia maybe 10 mg daily. She was intolerant to Nexletol. Discussed possible consideration of PCSK9 inhibitor. If Zetia is tolerated will plan to repeat fasting blood work in 3 to 4 months - EZETIMIBE 10 MG TABLET - COMPREHENSIVE METABOLIC PANEL - LIPID PANEL, FASTING 6. Statin intolerance - ICD9: 995.27, ICD10: Z78.9 Yared Dodd MD Patient complains of (L) arm pain that travels down her arm to her hand. documented in this encounter [facility] 02-15-2025 Note HNO ID: [id number] Author: YARED DODD MD Service: ? Author Type: Physician Type: Progress Notes Filed: 02/15/2025 14:15 Note Text: [facility] Cardiology Christine ([facility] Office Bldg POB)) [address] [facility] [address] OUTPATIENT VISIT DATE 02/15/2025 PRIMARY CARE PHYSICIAN: David Wynn [address] [place] [address] HISTORY OF PRESENT ILLNESS: Ms. Valadez is a 69 year old woman has a history of coronary artery disease and anterior wall myocardial infarction in March 2023 when she presented to hospital with atypical back pain and was found to have evidence of ST elevation underwent emergent cardiac catheterization. She has a resulting ischemic cardiomyopathy ejection fraction of 30%, chronic systolic congestive heart failure, and dyslipidemia. She has a history of diabetes which is insulin requiring. She presents to the office for routine follow-up. Patient is complaining of severe left shoulder and arm pain. Her symptoms are worsened by even minimal activity such as typing or moving her arm. There seems to be no exacerbating relieving factors. She had called the office with complaints and we had scheduled her for a stress test. However, her symptoms are noncardiac in nature. They are not relieved with rest and do not worsen with activity such as walking. She has not had symptoms concerning for congestive heart failure including PND, orthopnea, or lower extremity edema. She denies palpitations, lightheadedness, dizziness, or syncope. PAST MEDICAL HISTORY Diagnosis Date Arthritis Asthma CERVICAL DISC DISPLACMNT 02/03/2008 Chronic systolic heart failure (HCC) Coronary artery disease Degenerative disc disease Delayed emergence from anesthesia Diabetes mellitus type 2, controlled (HCC) Herniated disc HLD (hyperlipidemia) HTN (hypertension) Ischemic cardiomyopathy Migraines BELA (obstructive sleep apnea) Pericardial effusion (HCC) 04/13/2023 Thyroid nodule Unspecified essential hypertension Essential hypertension PAST SURGICAL HISTORY Procedure Laterality Date ADENOIDECTOMY PRIMARY Adenoidectomy APPENDECTOMY W/ exploratory lap BACK SURGERY HX CHOLECYSTECTOMY REMV CATARACT EXTRACAP,INSERT LENS Bilateral 09/2023 SKIN BX, 1 LESION 01/19/2025 Left Forearm TONSILLECTOMY PRIMARY/SECONDARY Tonsillectomy VAGINAL HYSTERECTOMY UTERUS 250 GM/< Hysterectomy, vaginal SOCIAL HISTORY Social History Tobacco Use Smoking status: Never Smokeless tobacco: Never Tobacco comments: Secondhand smoke exposure x 30 years (Father and 1st ) Substance Use Topics Alcohol use: Not Currently Drug use: No FAMILY HISTORY Problem Relation Age of Onset Heart Mother Allergies Mother Arthritis Mother Asthma Mother Genitourinary () Mother bladder suspension in her 50's Hearing Loss Mother Hypertension Mother Lipids Mother Osteoporosis Mother Heart Father Cancer Father sarcoma Diabetes Father Hearing Loss Father Hypertension Father Lipids Father Stroke Father TIA'S Heart Maternal Grandmother Heart Maternal Grandfather Heart Paternal Grandmother Diabetes Paternal Grandmother other (Goiter) Paternal Grandmother Heart Paternal Grandfather Cancer Paternal Aunt I lost 11 aunts and uncles Cancer Paternal Uncle I lost 11 aunts and uncles Diabetes Paternal Aunt Diabetes Maternal Uncle Headache Daughter migraines ALLERGIES: ALLERGIES Allergen Reactions Animal Dander Itching Itchy watery eyes, sneezing Imitrex [Sumatripta* Other: See Comments Narcotics [Opioids * Other: See Comments Most narcotics keep her awake for 3 days per pt, does well with tylenol with codeine per pt Ozempic [Semaglutid* Intolerance Constipation Propoxyphene Other: See Comments Steroids [Betametha* Steroids [Corticost* Other: See Comments blindness MEDICATIONS: carvedilol (COREG) 3.125 mg tablet TAKE 1 TABLET BY MOUTH TWICE A DAY WITH FOOD ENTRESTO 24-26 mg tablet TAKE 1 TABLET BY MOUTH TWICE A DAY blood sugar diagnostic (ONETOUCH ULTRA TEST) test strip Use as instructed to test blood sugar 5 times daily. DX: E11.42, insulin dependent. NOVOLOG FLEXPEN U-100 INSULIN 100 unit/mL (3 mL) INJECT SUBCUTANEOUSLY BREAKFAST 20 UNITS, LUNCH 20 UNITS , DINNER 20 UNITS PLUS SCALE UP TO 70 UNITS DAILY cycloSPORINE (RESTASIS) 0.05 % ophthalmic emulsion Use 1 Drop in both eyes two times a day. spironolactone (ALDACTONE) 25 mg tablet Take 0.5 tablets by mouth three times a week. nitroglycerin sublingual (NITROQUICK) 0.4 mg SL tablet Dissolve 1 tablet under the tongue every 5 minutes as needed for chest pain. TRESIBA FLEXTOUCH U-200 200 unit/mL (3 mL) injection Inject subcutaneously 70 units daily dapagliflozin propanediol (FARXIGA) 10 mg tablet Take 1 tablet by mouth daily (more content not included)... [facility] 02-15-2025 Note HNO ID: [id number] Author: KIKE TIWARI MA Service: ? Author Type: Medical Investigator Type: Progress Notes Filed: 02/15/2025 14:15 Note Text: Patient complains of (L) arm pain that travels down her arm to her hand. [facility] 02-09-2025 Note HNO ID: [id number] Author: GEORGES TORRES RN Service: ? Author Type: Registered Nurse Type: Nursing Progress Note Filed: 02/09/2025 13:03 Note Text: Dr lawton at bedside [facility] 02-09-2025 Note HNO ID: [id number] Author: DARBY NUÑEZ APRN.CRNA Service: Anesthesiology Author Type: Nurse [employer] Foreign [employer] Teacher Type: Anesthesia Procedure Notes Filed: 02/09/2025 12:04 Note Text: ANESTHESIOLOGY PROCEDURE NOTE Airway General Information Procedure Start Time/Medication Administration: 02/09/2025 11:52 AM Procedure End Time: 02/09/2025 11:53 AM Patient location during procedure: OR Timeout Performed Pre-procedure: timeout performed Consent Obtained: Yes Patient identity confirmed: arm band Staffing Anesthesiologist: Jody Talavera MD SALES TRAINING MANAGER: Darby Nuñez APRN.SALES TRAINING MANAGER SRNA: Christiano Gibson SRNA Performed by: GERARDO Indications and Patient Condition Indications for airway management: anesthesia and airway protection Preoxygenated: yes anesthesia circuit Patient position: sniffing Method: asleep Cricoid Pressure: No Manual In-Line Stabilization: No Final Airway Details Final airway type: supraglottic airway Number of attempts at approach: 1 Final Supraglottic Airway: i-gel Size 4 Seal Adequate: yes Failed airway: no Unrecognized esophageal intubation: no Airway not difficult SIGNATURE: Darby Nuñez APRN.SALES TRAINING MANAGER PATIENT NAME: Kenny Valadez DATE: February 09, 2025 TIME: 12:03 PM CSN: [id number] [facility] 02-05-2025 History of Present illness Narrative RADIOLOGY SERVICE PROGRESS NOTE SERVICE DATE: 02/05/2025 SERVICE TIME: 9:11 AM PATIENT IDENTITY VERIFICATION COMPLETED USING TWO (2) STANDARD IDENTIFIERS: Name and Date of confirmed by patient verbally FALL SCREENING: Has the patient had 2 falls in the last year or 1 fall with injury or currently using an Ambulatory Assistive Device (Walker, Cane, Wheelchair, Crutches, etc.)? Yes, Patient High Risk for Falls What interventions were put in place to prevent falls during this visit? Increased Observations by Caregivers PATIENT GENDER DATA: .female : No ALLERGIES: Reviewed and unchanged MEDICATIONS REVIEWED: No PATIENT RELEVANT IMPLANT DATA REVIEWED: Not Applicable PATIENT PRESENTS WITH AN IMPLANTABLE OR ATTACHED CORE ANALYST: No CREATININE: Creatinine Date Value Ref Range Status 01/04/2025 0.80 0.58 - 0.96 mg/dL Final 10/24/2024 0.91 0.58 - 0.96 mg/dL Final 09/28/2023 0.97 (H) 0.58 - 0.96 mg/dL Final Estimated Glomerular Filtration Rate Date Value Ref Range Status 01/04/2025 80 >=60 mL/min/1.73m Final Comment: Estimated Glomerular Filtration Rate (eGFR) is calculated using the 2020 CKD-EPI creatinine equation. This equation utilizes serum creatinine, sex, and age as parameters. The creatinine assay has traceable calibration to isotope dilution-mass spectrometry. Refer to KDIGO guidelines for clinical interpretation. In patients with unstable renal function, e.g. those with acute kidney injury, the eGFR may not accurately reflect actual GFR. eGFR- Date Value Ref Range Status 02/19/2021 >60 Final P.O.C.T. RESULTS: N/A February 05, [address] PERFORMED: No IV SITE: Ambulatory: A peripheral IV was started in the Right antecubital site with a Angio cath: 22 gauge. POST EXAM PIV STATUS: Discontinued PROCEDURE TYPE: NM Stress: 11.9 mCi Pi00a-Dbhqdvz was administered IV for Rest Imaging at 0756 by AB. 32.7 mCi Sd70t-Hrcjqxa was administered IV for Stress Imaging at 09:00 by MB. PATIENT DISCHARGED TO: Ambulatory patient, left [place] department area. Is this a therapy: No A Diagnostic radioactive procedure has taken place, with no further precautions necessary other than routine body substance precautions. More information regarding radiation safety can be found using this link: [email or web address] [email or web address]%20Nucl ear%20Medicine%20Procedures.pdf SIGNATURE: RT Daphne(R) PATIENT NAME: Kenny Valadez DATE: February 05, 2025 TIME: 9:11 AM PAGER/CONTACT #: RADIOLOGY SERVICE PROGRESS NOTE SERVICE DATE: 02/05/2025 SERVICE TIME: 7:46 AM PATIENT IDENTITY VERIFICATION COMPLETED USING TWO (2) STANDARD IDENTIFIERS: Name and Date of confirmed by patient verbally and Name and Date of confirmed by identification band FALL SCREENING: Has the patient had 2 falls in the last year or 1 fall with injury or currently using an Ambulatory Assistive Device (Walker, Cane, Wheelchair, Crutches, etc.)? No PATIENT GENDER DATA: .female : No ALLERGIES: Reviewed and unchanged MEDICATIONS REVIEWED: Yes PATIENT RELEVANT IMPLANT DATA REVIEWED: Not Applicable PATIENT PRESENTS WITH AN IMPLANTABLE OR ATTACHED CORE ANALYST: No CREATININE: Creatinine Date Value Ref Range Status 01/04/2025 0.80 0.58 - 0.96 mg/dL Final 10/24/2024 0.91 0.58 - 0.96 mg/dL Final 09/28/2023 0.97 (H) 0.58 - 0.96 mg/dL Final Estimated Glomerular Filtration Rate Date Value Ref Range Status 01/04/2025 80 >=60 mL/min/1.73m Final Comment: Estimated Glomerular Filtration Rate (eGFR) is calculated using the 2020 CKD-EPI creatinine equation. This equation utilizes serum creatinine, sex, and age as parameters. The creatinine assay has traceable calibration to isotope dilution-mass spectrometry. Refer to KDIGO guidelines for clinical interpretation. In patients with unstable renal function, e.g. those with acute kidney injury, the eGFR may not accurately reflect actual GFR. eGFR- Date Value Ref Range Status 02/19/2021 >60 Final P.O.C.T. RESULTS: N/A February 05, [address] PERFORMED: No IV SITE: Ambulatory: A peripheral IV was started in the Right hand with a Angio cath: 22 gauge. POST EXAM PIV STATUS: Discontinued PROCEDURE TYPE: NM Stress: 11.9 mCi Yz78a-Yrccboj was administered IV for Rest Imaging at 0756 by virgieb. 32.7 mCi Dp51o-Ubtylko was administered IV for Stress Imaging at 0900 by TAWNYA. ADMINISTRATION TIME: PATIENT DISCHARGED TO: Ambulatory patient, left [place] department area. Is this a therapy: No A Diagnostic radioactive procedure has taken place, with no further precautions necessary other than routine body substance precautions. More information regarding radiation safety can be found using this link: [email or web address]%20P [email or web address]-%20Diagnostic%20Nucl ear%20Medicine%20Procedures.pdf SIGNATURE: RT Travon(R) PATIENT NAME: Kenny Valadez DATE: February 05, 2025 TIME: 7:46 AM PAGER/CONTACT #: RADIOLOGY SERVICE PROGRESS NOTE SERVICE DATE: 02/05/2025 SERVICE TIME: 9:09 AM PATIENT IDENTITY VERIFICATION COMPLETED USING TWO (2) STANDARD IDENTIFIERS: Name and Date of confirmed by patient verbally and Name and Date of confirmed by identification band PATIENT GENDER DATA: female : No ALLERGIES: Reviewed and unchanged MEDICATIONS REVIEWED BY: Resource Teacher PROCEDURE TYPE: NM STRESS: 0.4 mg of Lexiscan was administered IV at 0900 by 0900. Reversal agent used: None. Expiration Date: 06/2026 Lot#: [id number] IV SITE: Ambulatory: A Saline lock was inserted per protocol POST EXAM PIV STATUS: Discontinued PATIENT DISCHARGED TO: Ambulatory patient, left [place] department area. A Diagnostic radioactive procedure has taken place, with no further precautions necessary other than routine body substance precautions. More information regarding radiation safety can be found using this link: [email or web address]%20P [email or web address]-%20Diagnostic%20Nucl ear%20Medicine%20Procedures.pdf SIGNATURE: Nydia Hobbs RN PATIENT NAME: Kenny Valadez DATE: February 05, 2025 TIME: 9:09 AM PAGER/CONTACT #: documented in this encounter [facility] 02-05-2025 Note HNO ID: [id number] Author: NYDIA HOBBS RN Service: Nursing Author Type: Registered Nurse Type: Progress Notes Filed: 02/05/2025 09:11 Note Text: RADIOLOGY SERVICE PROGRESS NOTE SERVICE DATE: 02/05/2025 SERVICE TIME: 9:09 AM PATIENT IDENTITY VERIFICATION COMPLETED USING TWO (2) STANDARD IDENTIFIERS: Name and Date of confirmed by patient verbally and Name and Date of confirmed by identification band PATIENT GENDER DATA: female : No ALLERGIES: Reviewed and unchanged MEDICATIONS REVIEWED BY: Resource Teacher PROCEDURE TYPE: NM STRESS: 0.4 mg of Lexiscan was administered IV at 0900 by 0900. Reversal agent used: None. Expiration Date: 06/2026 Lot#: [id number] IV SITE: Ambulatory: A Saline lock was inserted per protocol POST EXAM PIV STATUS: Discontinued PATIENT DISCHARGED TO: Ambulatory patient, left [place] department area. A Diagnostic radioactive procedure has taken place, with no further precautions necessary other than routine body substance precautions. More information regarding radiation safety can be found using this link: [email or web address] [email or web address]-% 20Diagnostic%20Nuclear%20Medicine %20Procedures.pdf SIGNATURE: Nydia Hobbs RN PATIENT NAME: Kenny Valadez DATE: February 05, 2025 TIME: 9:09 AM PAGER/CONTACT #: [facility] 02-05-2025 Note HNO ID: [id number] Author: FAM GOODWIN, RT(R) Service: Nuclear Medicine Author Type: Technologist Type: Progress Notes Filed: 02/05/2025 09:13 Note Text: RADIOLOGY SERVICE PROGRESS NOTE SERVICE DATE: 02/05/2025 SERVICE TIME: 9:11 AM PATIENT IDENTITY VERIFICATION COMPLETED USING TWO (2) STANDARD IDENTIFIERS: Name and Date of confirmed by patient verbally FALL SCREENING: Has the patient had 2 falls in the last year or 1 fall with injury or currently using an Ambulatory Assistive Device (Walker, Cane, Wheelchair, Crutches, etc.)? Yes, Patient High Risk for Falls What interventions were put in place to prevent falls during this visit? Increased Observations by Caregivers PATIENT GENDER DATA: .female : No ALLERGIES: Reviewed and unchanged MEDICATIONS REVIEWED: No PATIENT RELEVANT IMPLANT DATA REVIEWED: Not Applicable PATIENT PRESENTS WITH AN IMPLANTABLE OR ATTACHED CORE ANALYST: No CREATININE: Creatinine Date Value Ref Range Status 01/04/2025 0.80 0.58 - 0.96 mg/dL Final 10/24/2024 0.91 0.58 - 0.96 mg/dL Final 09/28/2023 0.97 (H) 0.58 - 0.96 mg/dL Final Estimated Glomerular Filtration Rate Date Value Ref Range Status 01/04/2025 80 >=60 mL/min/1.73m? Final Comment: Estimated Glomerular Filtration Rate (eGFR) is calculated using the 2020 CKD-EPI creatinine equation. This equation utilizes serum creatinine, sex, and age as parameters. The creatinine assay has traceable calibration to isotope dilution-mass spectrometry. Refer to KDIGO guidelines for clinical interpretation. In patients with unstable renal function, e.g. those with acute kidney injury, the eGFR may not accurately reflect actual GFR. eGFR- Date Value Ref Range Status 02/19/2021 >60 Final P.O.C.T. RESULTS: N/A February 05, [address] PERFORMED: No IV SITE: Ambulatory: A peripheral IV was started in the Right antecubital site with a Angio cath: 22 gauge. POST EXAM PIV STATUS: Discontinued PROCEDURE TYPE: NM Stress: 11.9 mCi Ql04y-Yowosjr was administered IV for Rest Imaging at 0756 by AB. 32.7 mCi Fc31z-Ufwjkib was administered IV for Stress Imaging at 09:00 by MB. PATIENT DISCHARGED TO: Ambulatory patient, left [place] department area. Is this a therapy: No A Diagnostic radioactive procedure has taken place, with no further precautions necessary other than routine body substance precautions. More information regarding radiation safety can be found using this link: [email or web address] [email or web address]-% 20Diagnostic%20Nuclear%20Medicine %20Procedures.pdf SIGNATURE: RT Daphne(R) PATIENT NAME: Kenny Valadez DATE: February 05, 2025 TIME: 9:11 AM PAGER/CONTACT #: RADIOLOGY SERVICE PROGRESS NOTE SERVICE DATE: 02/05/2025 SERVICE TIME: 7:46 AM PATIENT IDENTITY VERIFICATION COMPLETED USING TWO (2) STANDARD IDENTIFIERS: Name and Date of confirmed by patient verbally and Name and Date of confirmed by identification band FALL SCREENING: Has the patient had 2 falls in the last year or 1 fall with injury or currently using an Ambulatory Assistive Device (Walker, Cane, Wheelchair, Crutches, etc.)? No PATIENT GENDER DATA: .female : No ALLERGIES: Reviewed and unchanged MEDICATIONS REVIEWED: Yes PATIENT RELEVANT IMPLANT DATA REVIEWED: Not Applicable PATIENT PRESENTS WITH AN IMPLANTABLE OR ATTACHED CORE ANALYST: No CREATININE: Creatinine Date Value Ref Range Status 01/04/2025 0.80 0.58 - 0.96 mg/dL Final 10/24/2024 0.91 0.58 - 0.96 mg/dL Final 09/28/2023 0.97 (H) 0.58 - 0.96 mg/dL Final Estimated Glomerular Filtration Rate Date Value Ref Range Status 01/04/2025 80 >=60 mL/min/1.73m? Final Comment: Estimated Glomerular Filtration Rate (eGFR) is calculated using the 2020 CKD-EPI creatinine equation. This equation utilizes serum creatinine, sex, and age as parameters. The creatinine assay has traceable calibration to isotope dilution-mass spectrometry. Refer to KDIGO guidelines for clinical interpretation. In patients with unstable renal function, e.g. those with acute kidney injury, the eGFR may not accurately reflect actual GFR. eGFR- Date Value Ref Range Status 02/19/2021 >60 Final P.O.C.T. RESULTS: N/A February 05, [address] PERFORMED: No IV SITE: Ambulatory: A peripheral IV was started in the Right hand with a Angio cath: 22 gauge. POST EXAM PIV STATUS: Discontinued PROCEDURE TYPE: NM Stress: 11.9 mCi Hy97w-Gdltvct was administered IV for Rest Imaging at 0756 by ahb. 32.7 mCi Wv04v-Izsuvvg was administered IV for Stress Imaging at 0900 by TAWNYA. ADMINISTRATION TIME: PATIENT DISCHARGED TO: Ambulatory patient, left [place] department area. Is this a therapy: No A Diagnostic radioactive procedure has taken place, with no further precautions necessary other than routine body substance precautions. More information regardin (more content not included)... [facility] 01-29-2025 Telephone encounter Note Ms. Valadez is calling in stating she has been having pain in her left arm stating its intermittent with being an 8 or 9 out of 10 on verbal pain chart. Patient is being told she needs to try and have her stress test completed before the surgery on 02/09/2025 for a mass removal on her left forearm. Patient is currently scheduled for stress test on 02/12/2025. Patient states she is being told she needs prior authorization for stress test to be moved any sooner then 02/12/2025. Patient is asking if there is any way Dr. Dodd can help to get her stress test scheduled any sooner at this time. Keshia Pantoja LPN [facility] 01-29-2025 Miscellaneous Notes Ms. Valadez is calling in stating she has been having pain in her left arm stating its intermittent with being an 8 or 9 out of 10 on verbal pain chart. Patient is being told she needs to try and have her stress test completed before the surgery on 02/09/2025 for a mass removal on her left forearm. Patient is currently scheduled for stress test on 02/12/2025. Patient states she is being told she needs prior authorization for stress test to be moved any sooner then 02/12/2025. Patient is asking if there is any way Dr. Dodd can help to get her stress test scheduled any sooner at this time. Kesiha Pantoja LPN documented in this encounter [facility] 01-29-2025 Note HNO ID: [id number] Author: PHIL LAWTON MD Service: ? Author Type: Physician Type: Progress Notes Filed: 01/29/2025 15:08 Note Text: Phil Lawton M.D. Surgical Oncology [address] [place] [address], [address] [place] [address] Kenny is a 69-year-old female presenting to discuss biopsy results of a left forearm mass. Kenny initially presented to the surgical oncology clinic on January 15 with a left forearm mass. An image-guided biopsy was performed, revealing a benign vascular lesion versus a lymphangioma. She presents today to discuss these results and decide on the next steps in management. The ROS, medical, surgical, family, and social history were reviewed by Phil Lawton MD. BP 127/86 Pulse 80 SpO2 97% No weight on file for this encounter. Physical Exam Constitutional: General: She is not in acute distress. HENT: Head: Normocephalic and atraumatic. Eyes: Pupils: Pupils are equal, round, and reactive to light. Neck: Thyroid: No thyromegaly. Trachea: No tracheal deviation. Cardiovascular: Rate and Rhythm: Normal rate and regular rhythm. Heart sounds: Normal heart sounds. Pulmonary: Effort: Pulmonary effort is normal. No respiratory distress. Breath sounds: Normal breath sounds. No stridor. Abdominal: General: There is no distension. Palpations: Abdomen is soft. Tenderness: There is no abdominal tenderness. Musculoskeletal: General: No deformity. Normal range of motion. Skin: General: Skin is warm and dry. Findings: No erythema or rash. Neurological: Mental Status: She is alert and oriented to person, place, and time. Psychiatric: Mood and Affect: Affect normal. Judgment: Judgment normal. General: Well-appearing, no acute distress. MSK/Ext: Left forearm mass present. 1. Lymphangioma, any site (D18.1) - Image-guided biopsy of left forearm mass demonstrated a benign vascular lesion, possibly a lymphangioma. - Discussed biopsy results and management options. - Patient agrees with the plan to proceed with surgical excision of the mass. - Scheduled for surgical excision on 02/22/2023. The patient consented to the use of [employer] software for draft documentation of the visit consistent with [facility]?s Notice of Privacy Practices. I spent a total of 20 minutes on the date of the service which included preparing to see the patient, completing clinical documentation, performing a medically appropriate examination, and counseling and educating the patient/family/caregiver. Phil Lawton MD 01/29/2025 3:07 PM [facility] 01-29-2025 History of Present illness Narrative Images from the original note were not included. Phil Lawton M.D. Surgical Oncology [address] [facility], [address] [place] [address] Kenny is a 69-year-old female presenting to discuss biopsy results of a left forearm mass. Kenny initially presented to the surgical oncology clinic on January 15 with a left forearm mass. An image-guided biopsy was performed, revealing a benign vascular lesion versus a lymphangioma. She presents today to discuss these results and decide on the next steps in management. The ROS, medical, surgical, family, and social history were reviewed by Phil Lawton MD. BP 127/86 Pulse 80 SpO2 97% No weight on file for this encounter. Physical Exam Constitutional: General: She is not in acute distress. HENT: Head: Normocephalic and atraumatic. Eyes: Pupils: Pupils are equal, round, and reactive to light. Neck: Thyroid: No thyromegaly. Trachea: No tracheal deviation. Cardiovascular: Rate and Rhythm: Normal rate and regular rhythm. Heart sounds: Normal heart sounds. Pulmonary: Effort: Pulmonary effort is normal. No respiratory distress. Breath sounds: Normal breath sounds. No stridor. Abdominal: General: There is no distension. Palpations: Abdomen is soft. Tenderness: There is no abdominal tenderness. Musculoskeletal: General: No deformity. Normal range of motion. Skin: General: Skin is warm and dry. Findings: No erythema or rash. Neurological: Mental Status: She is alert and oriented to person, place, and time. Psychiatric: Mood and Affect: Affect normal. Judgment: Judgment normal. General: Well-appearing, no acute distress. MSK/Ext: Left forearm mass present. 1. Lymphangioma, any site (D18.1) - Image-guided biopsy of left forearm mass demonstrated a benign vascular lesion, possibly a lymphangioma. - Discussed biopsy results and management options. - Patient agrees with the plan to proceed with surgical excision of the mass. - Scheduled for surgical excision on 02/22/2023. The patient consented to the use of Marqui software for draft documentation of the visit consistent with [facility] s Notice of Privacy Practices. I spent a total of 20 minutes on the date of the service which included preparing to see the patient, completing clinical documentation, performing a medically appropriate examination, and counseling and educating the patient/family/caregiver. Phil Lawton MD 01/29/2025 3:07 PM documented in this encounter [facility] 01-19-2025 Surgery Surgical operation note BRIEF OPERATIVE / PROCEDURE NOTE LOG ID: [id number] SURGERY/PROCEDURE DATE: 01/19/2025 INCISION/PROCEDURE START TIME: 1:20 PM INCISION CLOSE/PROCEDURE END TIME: 1:31 PM SURGEON(S)/PROCEDURALIST(S) AND ALARM MECHANIC(S): Surgeons and Role: * Sandy Baez MD - Primary No Additional Staff SURGERY/PROCEDURE(S): Left forearm mass biopsy ANESTHESIA: Local FINDINGS: Ultrasound guidance utilized for left forearm mass biopsy. ESTIMATED BLOOD LOSS: 1 mL SPECIMENS: Three 18 gauge cores. COMPLICATIONS: None CLOSURE TECHNIQUE: Primary PRE-OP/PRE-PROCEDURE DIAGNOSIS: Enlarging left forearm mass. POST-OP/POST-PROCEDURE DIAGNOSIS: Same as Preop SIGNATURE: Sandy Baez MD PATIENT NAME: Kenny Valadez DATE: January 19, 2025 TIME: 1:34 PM [facility] Work Phone: 01-19-2025 Surgical operation note BRIEF OPERATIVE / PROCEDURE NOTE LOG ID: [id number] SURGERY/PROCEDURE DATE: 01/19/2025 INCISION/PROCEDURE START TIME: 1:20 PM INCISION CLOSE/PROCEDURE END TIME: 1:31 PM SURGEON(S)/PROCEDURALIST(S) AND ALARM MECHANIC(S): Surgeons and Role: * Sandy Baez MD - Primary No Additional Staff SURGERY/PROCEDURE(S): Left forearm mass biopsy ANESTHESIA: Local FINDINGS: Ultrasound guidance utilized for left forearm mass biopsy. ESTIMATED BLOOD LOSS: 1 mL SPECIMENS: Three 18 gauge cores. COMPLICATIONS: None CLOSURE TECHNIQUE: Primary PRE-OP/PRE-PROCEDURE DIAGNOSIS: Enlarging left forearm mass. POST-OP/POST-PROCEDURE DIAGNOSIS: Same as Preop SIGNATURE: Sandy Baez MD PATIENT NAME: Kenny Valadez DATE: January 19, 2025 TIME: 1:34 PM documented in this encounter [facility] 01-15-2025 Note HNO ID: [id number] Author: PHIL LAWTON MD Service: ? Author Type: Physician Type: Progress Notes Filed: 01/15/2025 13:54 Note Text: Phil Lawton M.D. Surgical Oncology [address] [facility], [address] [place] [address] Plan SUBJECTIVE HPI Kenny Valadez is a 69 year old female presenting for evaluation of a left forearm mass. Patient reports that she has noted this mass since the 1970s. It started off relatively small. She reports that over the past several months it has grown substantially. Over the past 2 months she has appreciated a darkening of the skin overlying. She reports no other skin lesions or lymphadenopathy. She reports no other significant systemic symptoms. She was seen by general surgery and a ultrasound was ordered. This was performed on December 05, 2024 and demonstrated a roughly 4.5 cm heterogeneous mass. The ROS, medical, surgical, family, and social history were reviewed by Phil Lawton MD. OBJECTIVE There were no vitals taken for this visit. No weight on file for this encounter. Physical Exam Constitutional: General: She is not in acute distress. HENT: Head: Normocephalic and atraumatic. Eyes: Pupils: Pupils are equal, round, and reactive to light. Neck: Thyroid: No thyromegaly. Trachea: No tracheal deviation. Cardiovascular: Rate and Rhythm: Normal rate and regular rhythm. Heart sounds: Normal heart sounds. Pulmonary: Effort: Pulmonary effort is normal. No respiratory distress. Breath sounds: Normal breath sounds. No stridor. Abdominal: General: There is no distension. Palpations: Abdomen is soft. Tenderness: There is no abdominal tenderness. Musculoskeletal: General: No deformity. Normal range of motion. Lymphadenopathy: Upper Body: Right upper body: No supraclavicular or axillary adenopathy. Left upper body: No supraclavicular or axillary adenopathy. Skin: General: Skin is warm and dry. Findings: No erythema or rash. Comments: Roughly 5 cm x 3 cm mobile subcutaneous mass of the left forearm. There is pigmentation/vasculature over approximately 1 cm of skin. Neurological: Mental Status: She is alert and oriented to person, place, and time. Psychiatric: Mood and Affect: Affect normal. Judgment: Judgment normal. ASSESSMENT AND PLAN 69-year-old woman with a soft tissue mass of the left forearm. Advised patient that I am uncertain of the etiology of this mass. It does appear to be a relatively superficial mass but given the significant size of the mass in relation to her forearm I advised her that performing a biopsy would be most reasonable. This would allow us to more adequately plan resection and know whether or not we can preserve skin overlying the mass. Answered all the patient's questions. We will schedule her for a image guided biopsy. She will follow-up with me afterwards for the results. I spent a total of 45 minutes on the date of the service which included preparing to see the patient, completing clinical documentation, performing a medically appropriate examination, counseling and educating the patient/family/caregiver, ordering medications, tests, or procedures, and independently interpreting results (not separately reported). Phil Lawton MD 01/15/2025 12:53 PM [facility] 01-15-2025 History of Present illness Narrative Images from the original note were not included. Phil Lawton M.D. Surgical Oncology [address] [facility], [address] [place] [id number] Plan SUBJECTIVE HPI Kenny Valadez is a 69 year old female presenting for evaluation of a left forearm mass. Patient reports that she has noted this mass since the 1970s. It started off relatively small. She reports that over the past several months it has grown substantially. Over the past 2 months she has appreciated a darkening of the skin overlying. She reports no other skin lesions or lymphadenopathy. She reports no other significant systemic symptoms. She was seen by general surgery and a ultrasound was ordered. This was performed on December 05, 2024 and demonstrated a roughly 4.5 cm heterogeneous mass. The ROS, medical, surgical, family, and social history were reviewed by Phil Lawton MD. OBJECTIVE There were no vitals taken for this visit. No weight on file for this encounter. Physical Exam Constitutional: General: She is not in acute distress. HENT: Head: Normocephalic and atraumatic. Eyes: Pupils: Pupils are equal, round, and reactive to light. Neck: Thyroid: No thyromegaly. Trachea: No tracheal deviation. Cardiovascular: Rate and Rhythm: Normal rate and regular rhythm. Heart sounds: Normal heart sounds. Pulmonary: Effort: Pulmonary effort is normal. No respiratory distress. Breath sounds: Normal breath sounds. No stridor. Abdominal: General: There is no distension. Palpations: Abdomen is soft. Tenderness: There is no abdominal tenderness. Musculoskeletal: General: No deformity. Normal range of motion. Lymphadenopathy: Upper Body: Right upper body: No supraclavicular or axillary adenopathy. Left upper body: No supraclavicular or axillary adenopathy. Skin: General: Skin is warm and dry. Findings: No erythema or rash. Comments: Roughly 5 cm x 3 cm mobile subcutaneous mass of the left forearm. There is pigmentation/vasculature over approximately 1 cm of skin. Neurological: Mental Status: She is alert and oriented to person, place, and time. Psychiatric: Mood and Affect: Affect normal. Judgment: Judgment normal. ASSESSMENT AND PLAN 69-year-old woman with a soft tissue mass of the left forearm. Advised patient that I am uncertain of the etiology of this mass. It does appear to be a relatively superficial mass but given the significant size of the mass in relation to her forearm I advised her that performing a biopsy would be most reasonable. This would allow us to more adequately plan resection and know whether or not we can preserve skin overlying the mass. Answered all the patient's questions. We will schedule her for a image guided biopsy. She will follow-up with me afterwards for the results. I spent a total of 45 minutes on the date of the service which included preparing to see the patient, completing clinical documentation, performing a medically appropriate examination, counseling and educating the patient/family/caregiver, ordering medications, tests, or procedures, and independently interpreting results (not separately reported). Phil Lawton MD 01/15/2025 12:53 PM documented in this encounter [facility] 01-04-2025 Note HNO ID: [id number] Author: MOLLY MURRIETA MD, PhD Service: ? Author Type: Physician Type: Progress Notes Filed: 01/31/2025 14:05 Note Text: Referred by Dr. Perrin for retina eval Patient had surgery at [facility] Now has white clouds in eyes 1. 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 Posterior vitreous detachment (PVD) both eyes -Retinal detachment precautions reviewed 3. Lattice degeneration left eye 4. Posterior chamber intraocular lens (PCIOL) both eyes Done in [address] [facility] - Dr. Sparks Last one was Dec Not happy after surgery Plan: She is having problems with contrast - cannot see black on orange background Bright lights do not help her with contrast which is not expected Rec getting electroretinogram (ERG) downtown to rule out optic neuropathy or cone disorder. Checked color plates both eyes- normal Discussed Pars plana vitrectomy (PPV) to remove floaters/clouds. Discussed if that does not fix her problems may need lens exchange Can also trial eyedrops - vuity Return in 3 mo for placeholder appt Check quezada visual field (HVF) 24-2 Update 01/31/25: Dr. Duque tried scheduling for electroretinogram (ERG). VM for patient is full and cannot reach patient to schedule. I have confirmed and edited as necessary the relevant HPI, ophthalmic history, ROS, and the neuro exam findings as obtained by others. I have seen and examined Kenny Valadez. I have discussed the case and the management of this patient's care with the Resident/Fellow, if applicable. I also have reviewed and agree with the assessment and plan as stated above and agree with all of its relevant components. Molly Murrieta MD [facility] 01-03-2025 Telephone encounter Note Pharmacy electronically requests the following refill(s) Requested Prescriptions Pending Prescriptions Disp Refills carvedilol (COREG) 3.125 mg tablet [Pharmacy Med Name: CARVEDILOL 3.125 MG TABLET] 180 tablet 3 Sig: TAKE 1 TABLET BY MOUTH TWICE A DAY WITH FOOD ENTRESTO 24-26 mg tablet [Pharmacy Med Name: ENTRESTO 24 MG-26 MG TABLET] 180 tablet 1 Sig: TAKE 1 TABLET BY MOUTH TWICE A DAY Loan Obrien RN [facility] 01-03-2025 Miscellaneous Notes Pharmacy electronically requests the following refill(s) Requested Prescriptions Pending Prescriptions Disp Refills carvedilol (COREG) 3.125 mg tablet [Pharmacy Med Name: CARVEDILOL 3.125 MG TABLET] 180 tablet 3 Sig: TAKE 1 TABLET BY MOUTH TWICE A DAY WITH FOOD ENTRESTO 24-26 mg tablet [Pharmacy Med Name: ENTRESTO 24 MG-26 MG TABLET] 180 tablet 1 Sig: TAKE 1 TABLET BY MOUTH TWICE A DAY Loan Obrien RN documented in this encounter [facility] 12-27-2024 Telephone encounter Note Noted Thank you for trying. [facility] 12-27-2024 Miscellaneous Notes Noted Thank you for trying. Tried to do a PA for the test strips for 5 times a day but was not able to. Received this message: 76--QTY EXCEEDED PA AMMY Duron MD VISIT [employer] OR CALL [phone] MAX QTY OF 450.000 IN 075 DAYS QUANTITY REMAINING .000 NEXT FILL DATE 01/08/2025, LAST FILL DATE 10/25/2024 @[facility],# [phone] Please review and advise. I would like to try for the 5 strips per day. I added more information to the office note. Thank you Received a PA request for glucose test strips quantity and day supply exceeds plan limits. RX was sent for 5 times daily testing. Insurance does not cover this frequency. Last office notes states she beltran snot have consistency to her meals, BG monitoring or insulin administrations, but did not specify a certain testing frequency of 5 times per day. She reported to testing 3 times daily... If she is to test this often she may need to be considered for a CGM or be switched to 3 times daily testing. Please advise. documented in this encounter [facility] 12-27-2024 Telephone encounter Note Tried to do a PA for the test strips for 5 times a day but was not able to. Received this message: 76--QTY EXCEEDED PA REQ - MD VISIT [employer] OR CALL [phone] MAX QTY OF 450.000 IN 075 DAYS QUANTITY REMAINING .000 NEXT FILL DATE 01/08/2025, LAST FILL DATE 10/25/2024 @[facility],# [phone] Please review and advise. [facility] 12-26-2024 Note HNO ID: [id number] Author: STEVIE LANE PA-C Service: ? Author Type: Physician Project Lead Type: Progress Notes Filed: 12/26/2024 17:52 Note Text: This note was created using [employer]. Subjective Kenny Valadez is a 69 year old female. Patient is a 69-year-old female who complains of an intensely itching and burning red rash to the lateral aspect of her left lower leg that has developed over the past 2 to 3 hours. Patient also notes raised areas which are tender to touch. Patient reports that earlier today her skin was clear and she was completely asymptomatic. Patient states that the remainder of the skin to her BSA is unaffected and that her symptoms are confined to the lateral aspect of her left lower leg. Patient noted no bleeding, serous or purulent fluid to the site. Patient states that her does have a history of shingles to his leg and that her current symptoms are consistent with same. Patient denies fever, chills or other illness symptoms. Patient reports that her last shingles vaccine was approximately 10 years ago. Rash Review of Systems Skin: Positive for rash. All other systems reviewed and are negative. Objective BP 122/70 Pulse 80 Temp 36.6 ?C (97.8 ?F) Resp 16 Wt 88.6 kg (195 lb 5.2 oz) SpO2 95% BMI 32.50 kg/m? Physical Exam Vitals and nursing note reviewed. Constitutional: Appearance: Normal appearance. She is normal weight. HENT: Head: Normocephalic and atraumatic. Nose: Nose normal. Mouth/Throat: Mouth: Mucous membranes are moist. Pharynx: Oropharynx is clear. Eyes: Extraocular Movements: Extraocular movements intact. Conjunctiva/sclera: Conjunctivae normal. Pupils: Pupils are equal, round, and reactive to light. Cardiovascular: Rate and Rhythm: Normal rate. Pulses: Normal pulses. Pulmonary: Effort: Pulmonary effort is normal. Breath sounds: Normal breath sounds. Musculoskeletal: General: Tenderness present. No swelling, deformity or signs of injury. Normal range of motion. Cervical back: Normal range of motion and neck supple. Left lower leg: No edema. Skin: General: Skin is warm and dry. Capillary Refill: Capillary refill takes less than 2 seconds. Findings: Erythema, lesion and rash present. No bruising. Comments: Intense erythema is noted and is clearly distributed to the left anterior L5 dermatome. There are multiple erythematous papules noted to be developing. The area is exquisitely tender to palpation. The skin is dry and there is no bleeding, serous or purulent fluid noted. Remainder of exam to the left leg is otherwise clear and unremarkable. Neurological: General: No focal deficit present. Mental Status: She is alert and oriented to person, place, and time. Psychiatric: Mood and Affect: Mood normal. Behavior: Behavior normal. Thought Content: Thought content normal. Judgment: Judgment normal. Assessment and Plan Physical exam findings as noted above. Patient was provided with a prescription for acyclovir 800 mg and skin care instructions were discussed. Patient verbalizes clear understanding of same. CLINICAL IMPRESSION: Herpes Zoster Left L5 Dermatome ASSESSMENT/PLAN: 1. Herpes zoster without complications - ICD9: 053.9, ICD10: B02.9 - ACYCLOVIR [address] PA-C [facility] 12-26-2024 History of Present illness Narrative This note was created using [employer]. Subjective Kenny Valadez is a 69 year old female. Patient is a 69-year-old female who complains of an intensely itching and burning red rash to the lateral aspect of her left lower leg that has developed over the past 2 to 3 hours. Patient also notes raised areas which are tender to touch. Patient reports that earlier today her skin was clear and she was completely asymptomatic. Patient states that the remainder of the skin to her BSA is unaffected and that her symptoms are confined to the lateral aspect of her left lower leg. Patient noted no bleeding, serous or purulent fluid to the site. Patient states that her does have a history of shingles to his leg and that her current symptoms are consistent with same. Patient denies fever, chills or other illness symptoms. Patient reports that her last shingles vaccine was approximately 10 years ago. Rash Review of Systems Skin: Positive for rash. All other systems reviewed and are negative. Objective BP 122/70 Pulse 80 Temp 36.6 C (97.8 F) Resp 16 Wt 88.6 kg (195 lb 5.2 oz) SpO2 95% BMI 32.50 kg/m Physical Exam Vitals and nursing note reviewed. Constitutional: Appearance: Normal appearance. She is normal weight. HENT: Head: Normocephalic and atraumatic. Nose: Nose normal. Mouth/Throat: Mouth: Mucous membranes are moist. Pharynx: Oropharynx is clear. Eyes: Extraocular Movements: Extraocular movements intact. Conjunctiva/sclera: Conjunctivae normal. Pupils: Pupils are equal, round, and reactive to light. Cardiovascular: Rate and Rhythm: Normal rate. Pulses: Normal pulses. Pulmonary: Effort: Pulmonary effort is normal. Breath sounds: Normal breath sounds. Musculoskeletal: General: Tenderness present. No swelling, deformity or signs of injury. Normal range of motion. Cervical back: Normal range of motion and neck supple. Left lower leg: No edema. Skin: General: Skin is warm and dry. Capillary Refill: Capillary refill takes less than 2 seconds. Findings: Erythema, lesion and rash present. No bruising. Comments: Intense erythema is noted and is clearly distributed to the left anterior L5 dermatome. There are multiple erythematous papules noted to be developing. The area is exquisitely tender to palpation. The skin is dry and there is no bleeding, serous or purulent fluid noted. Remainder of exam to the left leg is otherwise clear and unremarkable. Neurological: General: No focal deficit present. Mental Status: She is alert and oriented to person, place, and time. Psychiatric: Mood and Affect: Mood normal. Behavior: Behavior normal. Thought Content: Thought content normal. Judgment: Judgment normal. Assessment and Plan Physical exam findings as noted above. Patient was provided with a prescription for acyclovir 800 mg and skin care instructions were discussed. Patient verbalizes clear understanding of same. CLINICAL IMPRESSION: Herpes Zoster Left L5 Dermatome ASSESSMENT/PLAN: 1. Herpes zoster without complications - ICD9: 053.9, ICD10: B02.9 - ACYCLOVIR [address] PA-C documented in this encounter [facility] 12-26-2024 Telephone encounter Note I would like to try for the 5 strips per day. I added more information to the office note. Thank you [facility] 12-26-2024 Telephone encounter Note Received a PA request for glucose test strips quantity and day supply exceeds plan limits. RX was sent for 5 times daily testing. Insurance does not cover this frequency. Last office notes states she beltran snot have consistency to her meals, BG monitoring or insulin administrations, but did not specify a certain testing frequency of 5 times per day. She reported to testing 3 times daily... If she is to test this often she may need to be considered for a CGM or be switched to 3 times daily testing. Please advise. [facility] 12-26-2024 Telephone encounter Note Kenny called and asked if there was any way she can see Dr. Leighann sooner than her 3/3 appointment at [facility]. She said her arm mass has become really painful, and she is having a really difficult time. Dr. Vincenti does not have any sooner openings at [facility] right now, and she is on the Waiting List. She said Dr. Hawkins wants her to see Dr. Vincenti specifically. Kylah, are there any openings for her at Dr. Vincenti's [place] location? She is willing to travel to see him sooner. She said she will be available for calls and try to respond right away if she misses a call regarding scheduling to ensure she can take an appointment if it's offered to her. Thank you, Selina Vargas [facility] 12-26-2024 Miscellaneous Notes Kenny called and asked if there was any way she can see Dr. Vincenti sooner than her 3/3 appointment at [facility]. She said her arm mass has become really painful, and she is having a really difficult time. Dr. Vincenti does not have any sooner openings at [facility] right now, and she is on the Waiting List. She said Dr. Hawkins wants her to see Dr. Vincent[place] specifically. Kylah, are there any openings for her at Dr. Vincenti's [place] location? She is willing to travel to see him sooner. She said she will be available for calls and try to respond right away if she misses a call regarding scheduling to ensure she can take an appointment if it's offered to her. Thank you, Selina Vargas documented in this encounter [facility] 12-21-2024 Instructions Mary Kate Barber APRN.MANAGER NEWS - 12/21/2024 4:11 PM EST Continue tresiba 70 units daily. Continue farxiga Novolog: Breakfast 20 units Lunch 20 units Dinner 20 units Plus add novolog per scale below if needed: If Blood Glucose (mg/dL) is < 150 Give 0 units 151-200 Give 1 unit 201-250 Give 2 units 251-300 Give 3 units 301-350 Give 4 units >351 Give 5 units Follow up in 3-4 months Mary Kate Barber, MSN, SEWER MAINTENANCE SUPERVISOR, CITY DISPATCH SUPERVISOR-C, [facility] Endocrinology [facility] Medical Office [facility]/[address], [address] [place], [place] [address] Fax: documented in this encounter [facility] 12-21-2024 History of Present illness Narrative Reason for Consultation: DM Type 2 Referring Physician: Luli Perdomo MD [address] [facility] [address] HISTORY OF PRESENT ILLNESS; Ms. Valadez is a 69 year old female presenting for follow up regarding DM Type 2. She was initially diagnosed with diabetes approx. 2000. She has been on insulin since at least age 55. LV 09/07/24 A1C today is 8.3. up from 7.5 in August History of diabetes, HTN, HLD, peripheral neuropathy, obesity, allergies, thyroid nodule, BELA, NSTEMI s/p stent , microalbuminuria, CKD Denies pancreatitis, medullary TC, gastroparesis She was unable to tolerate Mounjaro due to extreme constipation Having and upcoming stress test due to chest pain. Following with cardiology Admits diet has been poor--candy bars, mosotho or guatemalan food for dinner Rashel was cost prohibitive She is under the care of nephrology, Dr. Perdomo and cardiology Dr. Dodd. Her current diabetes regimen is: Tresiba (u200 pen) 70 units daily at noon Farxiga 10 mg daily Novolog 20 units TID meals plus SS If Blood Glucose (mg/dL) is < 150 Give 0 units 151-200 Give 1 unit 201-250 Give 2 units 251-300 Give 3 units 301-350 Give 4 units >351 Give 5 units Previous DM medications: Glyburide actos janumet Glucotrol Metformin--stomach upset. Levemir--ineffective Trulicity --stomach issues. Ozempic--severe constipation Mounjaro--severe constipation Regarding symptoms of hyperglycemia, she is not experiencing polyuria and polydipsia. Exercise:Mil Cox is checking her blood glucose 3+ times per day She did bring a logbook today for review: Fastin's--might take a correction --bagel, egg, often before work 10:30 AM : 160-180 ; 114 today 1:30: lunch time: 120-130 --skips novolog if BG is normal acS (5-7:30 dinner): no BG; taking 20 units but might be an hour later HS 200-300 range; uses novolog 10 to 15 units Hypoglycemia frequency: occasionally; feels symptomatically low even in 100 range Hypoglycemia awareness: Yes Overall, the patient has no acute complaints at this time. HTN: Intolerant to KALIE ARB--Entresto HLD: Not currently on a statin. PAST MEDICAL HISTORY Diagnosis Date Arthritis Asthma CERVICAL DISC DISPLACMNT 02/03/2008 Chronic systolic heart failure (HCC) Coronary artery disease Degenerative disc disease Diabetes mellitus type 2, controlled (HCC) Herniated disc HLD (hyperlipidemia) HTN (hypertension) Ischemic cardiomyopathy Migraines BELA (obstructive sleep apnea) Pericardial effusion 04/13/2023 Thyroid nodule Unspecified essential hypertension Essential hypertension PAST SURGICAL HISTORY Procedure Laterality Date ADENOIDECTOMY PRIMARY <AGE 12 Adenoidectomy APPENDECTOMY W/ exploratory lap BACK SURGERY HX CHOLECYSTECTOMY REMV CATARACT EXTRACAP,INSERT LENS Bilateral 09/2023 TONSILLECTOMY PRIMARY/SECONDARY <AGE 12 Tonsillectomy VAGINAL HYSTERECTOMY UTERUS 250 GM/< Hysterectomy, vaginal FAMILY HISTORY Problem Relation Age of Onset Heart Mother Allergies Mother Arthritis Mother Asthma Mother Genitourinary () Mother bladder suspension in her 50's Hearing Loss Mother Hypertension Mother Lipids Mother Osteoporosis Mother Heart Father Cancer Father sarcoma Diabetes Father Hearing Loss Father Hypertension Father Lipids Father Stroke Father TIA'S Heart Maternal Grandmother Heart Maternal Grandfather Heart Paternal Grandmother Diabetes Paternal Grandmother other (Goiter) Paternal Grandmother Heart Paternal Grandfather Cancer Paternal Aunt I lost 11 aunts and uncles Cancer Paternal Uncle I lost 11 aunts and uncles Diabetes Paternal Aunt Diabetes Maternal Uncle Headache Daughter migraines Social History Tobacco Use Smoking status: Never Smokeless tobacco: Never Tobacco comments: Secondhand smoke exposure x 30 years (Father and 1st ) Substance Use Topics Alcohol use: Yes Comment: rare Drug use: No Current Outpatient Medications Medication Sig Dispense Refill Diclofenac Sodium 3 % gel Apply 0.5 g to affected area two times a day. 100 g 0 cycloSPORINE (RESTASIS) 0.05 % ophthalmic emulsion Use 1 Drop in both eyes two times a day. 180 Each 0 spironolactone (ALDACTONE) 25 mg tablet Take 0.5 tablets by mouth three times a week. sacubitril-valsartan (ENTRESTO) 24-26 mg tablet Take 1 tablet by mouth two times a day. 180 tablet 1 nitroglycerin sublingual (NITROQUICK) 0.4 mg SL tablet Dissolve 1 tablet under the tongue every 5 minutes as needed for chest pain. 25 tablet 0 bempedoic acid (NEXLETOL) 180 mg tablet Take 1 tablet (180 mg) by mouth once daily. 90 tablet 3 TRESIBA FLEXTOUCH U-200 200 unit/mL (3 mL) injection Inject subcutaneously 70 units daily 12 mL 11 dapagliflozin propanediol (FARXIGA) 10 mg tablet Take 1 tablet by mouth daily with breakfast. 90 tablet 3 clopidogrel (PLAVIX) 75 mg tablet Take 1 tablet by mouth once daily. 90 tablet 3 blood sugar diagnostic (The [employer] Life GuidesTOUCH ULTRA TEST) test strip Use as instructed to test blood sugar 3 times daily. DX: E11.42, insulin dependent. 300 Strip 3 diphenhydrAMINE (BENADRYL ALLERGY) 12.5 mg/5 mL liquid NOVOLOG FLEXPEN U-100 INSULIN 100 unit/mL (3 mL) INJECT SUBCUTANEOUSLY BREAKFAST 20 UNITS, LUNCH 20 UNITS , DINNER 20 UNITS PLUS SCALE UP TO 70 UNITS DAILY 30 mL 11 carvedilol (COREG) 3.125 mg tablet take 1 tablet by mouth twice a day with food 180 tablet 3 insulin needles, DISPOSABLE, (BD INSULIN PEN NEEDLE UF) 31 gauge x 5/16 Use 4 pen needles daily 400 Each 3 Multivitamin capsule Take 1 capsule by mouth once daily. aspirin, enteric coated (ASPIRIN, ENTERIC COATED) 81 mg EC tablet Take 1 tablet by mouth once daily. No current facility-administered medications for this visit. Allergies As of Date: 12/21/2024 Allergen Noted Reaction ANIMAL DANDER 04/08/2023 Itching IMITREX [SUMATRIPTAN] 04/07/2023 Other: See Comments OZEMPIC [SEMAGLUTIDE] 06/07/2024 Intolerance PROPOXYPHENE 02/23/2024 Other: See Comments STEROIDS [BETAMETHASONE DIPROPION*01/31/2008 STEROIDS [CORTICOSTEROIDS (GLUCOC*10/24/2024 Other: See Comments Fully Assessed 12/21/2024 REVIEW OF SYSTEMS: Answers submitted by the patient for this visit: Core Review of Systems (Submitted on 12/18/2024) Fever : No Night sweats: Yes Recent unintentional weight change: Yes Nasal Congestion: No Hearing Loss: No Vision Disturbance: Yes A cough: No Difficulty Breathing?: No Chest pain: Yes Irregular heartbeat: No Leg Swelling: No Nausea: No Diarrhea: No Black tarry stools: No Difficulty Urinating?: No Awaken at Night More Than Once to Urinate?: Yes Joint pain or stiffness: Yes Muscle aches: Yes Leg or Foot Discomfort at Night?: Yes A rash: No Dizziness: No Headaches: Yes Memory Loss: No Seizures: No PHYSICAL EXAM: BP 117/77 Pulse 82 Resp 16 Ht 165.1 cm (5' 5) Wt 87.3 kg (192 lb 7.4 oz) SpO2 97% BMI 32.03 kg/m2 Physical Exam Constitutional: Appearance: Normal appearance. She is obese. Cardiovascular: Rate and Rhythm: Normal rate and regular rhythm. Pulmonary: Breath sounds: Normal breath sounds. Skin: General: Skin is warm and dry. Neurological: Mental Status: She is alert and oriented to person, place, and time. Psychiatric: Mood and Affect: Mood normal. Behavior: Behavior normal. DATA: Creatinine Date Value Ref Range Status 10/24/2024 0.91 0.58 - 0.96 mg/dL Final Hemoglobin A1C (%) Date Value 04/15/2012 10.8 Hemoglobin A1C (POCT) (%) Date Value 09/07/2024 7.5 ) No components found for: URINEALBUMIN Cholesterol, Total (mg/dL) Date Value 01/22/2024 159 HDL Cholesterol (mg/dL) Date Value 01/22/2024 29 LDL Cholesterol (mg/dL) Date Value 01/22/2024 90 LDL Cholesterol, Nonfasting (mg/dL) Date Value 04/07/2023 120 Triglyceride (mg/dL) Date Value 01/22/2024 199 IMPRESSION: Ms. Rory is a 69 year old female here for evaluation of DM Type 2 complicated by hypertension, hyperlipidemia, CKD, peripheral neuropathy and microalbuminuria RECOMMENDATIONS (E11.29, R80.9, Z79.4) Type 2 diabetes mellitus with diabetic microalbuminuria, with long-term current use of insulin ([facility]) (primary encounter diagnosis) Comment: Glycemic control is trending higher. She has no consistency to her meals, BG monitoring or insulin administrations. We reviewed the importance of this and will wait to make any insulin adjustments. Urine protein is stable. She is on SGLT2 and ARB Plan: HEMOGLOBIN A1C (POC) Continue tresiba 70 units daily. Continue farxiga Novolog: Breakfast 20 units Lunch 20 units Dinner 20 units Plus add novolog per scale below if needed: If Blood Glucose (mg/dL) is < 150 Give 0 units 151-200 Give 1 unit 201-250 Give 2 units 251-300 Give 3 units 301-350 Give 4 units >351 Give 5 units Follow up in 3-4 months (E11.42, Z79.4) Type 2 diabetes mellitus with diabetic polyneuropathy, with long-term current use of insulin ([facility]) Comment: Glycemic control is trending higher. She has no consistency to her meals, BG monitoring or insulin administrations. We reviewed the importance of this and will wait to make any insulin adjustments. Neuropathy is monitored and stable. Plan: HEMOGLOBIN A1C (POC), blood sugar diagnostic (ONETOUCH ULTRA TEST) test strip, NOVOLOG FLEXPEN U-100 INSULIN 100 unit/mL (3 mL) Continue tresiba 70 units daily. Continue farxiga Novolog: Breakfast 20 units Lunch 20 units Dinner 20 units Plus add novolog per scale below if needed: If Blood Glucose (mg/dL) is < 150 Give 0 units 151-200 Give 1 unit 201-250 Give 2 units 251-300 Give 3 units 301-350 Give 4 units >351 Give 5 units Follow up in 3-4 months (E11.21, Z79.4) Type 2 diabetes mellitus with diabetic nephropathy, with long-term current use of insulin ([facility]) Comment: Glycemic control is trending higher. She has no consistency to her meals, BG monitoring or insulin administrations. We reviewed the importance of this and will wait to make any insulin adjustments. Renal disease is monitored and stable. She is on SGLT2 and ARB Plan: HEMOGLOBIN A1C (POC), blood sugar diagnostic (ONETOUCH ULTRA TEST) test strip, NOVOLOG FLEXPEN U-100 INSULIN 100 unit/mL (3 mL) Continue tresiba 70 units daily. Continue farxiga Novolog: Breakfast 20 units Lunch 20 units Dinner 20 units Plus add novolog per scale below if needed: If Blood Glucose (mg/dL) is < 150 Give 0 units 151-200 Give 1 unit 201-250 Give 2 units 251-300 Give 3 units 301-350 Give 4 units >351 Give 5 units Follow up in 3-4 months (E11.649) Hypoglycemia due to type 2 diabetes mellitus (HCC) Comment/Plan: CGM cost prohibitive (E04.1) Nontoxic single thyroid nodule Comment/Plan: single subcentimeter nodule of 0.8 cm (8mm) She has been euthyroid. Managed per PCP (I10) Essential hypertension Comment/Plan: Managed per PCP/cardiology (E78.2) Mixed hyperlipidemia Comment/Plan: s/p NSTEMI with stent; Managed per PCP/cardiology (E66.9) Obesity, Class I, BMI 30-34.9 Comment: Body mass index is 32.03 kg/m . Plan: Encouraged increase dietary and exercise efforts as able Medical Decision Making: Level: 4 - Moderate Mary Kate Barber, MSN, [employer] MAINTENANCE SUPERVISOR, [employer]PATCH SUPERVISOR-C, [facility] Endocrinology [facility] Medical Office Building/[address], [address] [place] [address] Fax: documented in this encounter [facility] 12-21-2024 Note HNO ID: [id number] Author: MARY KATE BARBER APRN.MANAGER NEWS Service: ? Author Type: Nurse Practitioner Type: Progress Notes Filed: 12/26/2024 16:41 Note Text: Reason for Consultation: DM Type 2 Referring Physician: Luli Perdomo MD [address] [facility] [address] HISTORY OF PRESENT ILLNESS; Ms. Valadez is a 69 year old female presenting for follow up regarding DM Type 2. She was initially diagnosed with diabetes approx. 2000. She has been on insulin since at least age 55. LV 09/07/24 A1C today is 8.3. up from 7.5 in August History of diabetes, HTN, HLD, peripheral neuropathy, obesity, allergies, thyroid nodule, BELA, NSTEMI s/p stent , microalbuminuria, CKD Denies pancreatitis, medullary TC, gastroparesis She was unable to tolerate Mounjaro due to extreme constipation Having and upcoming stress test due to chest pain. Following with cardiology Admits diet has been poor--candy bars, mosotho or guatemalan food for dinner CGM was cost prohibitive. She wants to be able to check her glucose 5x per day--with 3 meals, bedtime and AM snack time--however insurance will only pay for 3 strips per day. She has hyperglycemia with a rising A1C. She is under the care of nephrology, Dr. Perdomo and cardiology Dr. Dodd. Her current diabetes regimen is: Tresiba (u200 pen) 70 units daily at noon Farxiga 10 mg daily Novolog 20 units TID meals plus SS If Blood Glucose (mg/dL) is < 150 Give 0 units 151-200 Give 1 unit 201-250 Give 2 units 251-300 Give 3 units 301-350 Give 4 units >351 Give 5 units Previous DM medications: Glyburide actos janumet Glucotrol Metformin--stomach upset. Levemir--ineffective Trulicity --stomach issues. Ozempic--severe constipation Mounjaro--severe constipation Regarding symptoms of hyperglycemia, she is not experiencing polyuria and polydipsia. Exercise:GURDEEP'ambika Cox is checking her blood glucose 3+ times per day She did bring a logbook today for review: Fastin's--might take a correction --bagel, egg, often before work 10:30 AM : 160-180 ; 114 today 1:30: lunch time: 120-130 --skips novolog if BG is normal acS (5-7:30 dinner): no BG; taking 20 units but might be an hour later HS 200-300 range; uses novolog 10 to 15 units Hypoglycemia frequency: occasionally; feels symptomatically low even in 100 range Hypoglycemia awareness: Yes Overall, the patient has no acute complaints at this time. HTN: Intolerant to KALIE ARB--Entresto HLD: Not currently on a statin. PAST MEDICAL HISTORY Diagnosis Date Arthritis Asthma CERVICAL DISC DISPLACMNT 02/03/2008 Chronic systolic heart failure (HCC) Coronary artery disease Degenerative disc disease Diabetes mellitus type 2, controlled (HCC) Herniated disc HLD (hyperlipidemia) HTN (hypertension) Ischemic cardiomyopathy Migraines BELA (obstructive sleep apnea) Pericardial effusion 04/13/2023 Thyroid nodule Unspecified essential hypertension Essential hypertension PAST SURGICAL HISTORY Procedure Laterality Date ADENOIDECTOMY PRIMARY Adenoidectomy APPENDECTOMY W/ exploratory lap BACK SURGERY HX CHOLECYSTECTOMY REMV CATARACT EXTRACAP,INSERT LENS Bilateral 09/2023 TONSILLECTOMY PRIMARY/SECONDARY Tonsillectomy VAGINAL HYSTERECTOMY UTERUS 250 GM/< Hysterectomy, vaginal FAMILY HISTORY Problem Relation Age of Onset Heart Mother Allergies Mother Arthritis Mother Asthma Mother Genitourinary () Mother bladder suspension in her 50's Hearing Loss Mother Hypertension Mother Lipids Mother Osteoporosis Mother Heart Father Cancer Father sarcoma Diabetes Father Hearing Loss Father Hypertension Father Lipids Father Stroke Father TIA'S Heart Maternal Grandmother Heart Maternal Grandfather Heart Paternal Grandmother Diabetes Paternal Grandmother other (Goiter) Paternal Grandmother Heart Paternal Grandfather Cancer Paternal Aunt I lost 11 aunts and uncles Cancer Paternal Uncle I lost 11 aunts and uncles Diabetes Paternal Aunt Diabetes Maternal Uncle Headache Daughter migraines Social History Tobacco Use Smoking status: Never Smokeless tobacco: Never Tobacco comments: Secondhand smoke exposure x 30 years (Father and 1st ) Substance Use Topics Alcohol use: Yes Comment: rare Drug use: No Current Outpatient Medications Medication Sig Dispense Refill Diclofenac Sodium 3 % gel Apply 0.5 g to affected area two times a day. 100 g 0 cycloSPORINE (RESTASIS) 0.05 % ophthalmic emulsion Use 1 Drop in both eyes two times a day. 180 Each 0 spironolactone (ALDACTONE) 25 mg tablet Take 0.5 tablets by mouth three times a week. sacubitril-valsartan (ENTRESTO) 24-26 mg tablet Take 1 tablet by mouth two times a day. 180 tablet 1 nitroglycerin sublingual (NITROQUICK) 0.4 mg SL tablet Dissolve 1 tablet under the tongue every 5 minutes as needed for chest pain. 25 tablet 0 bempedoic acid (NEXLETO (more content not included)... [facility] 12-11-2024 Instructions Yared Dodd MD - 12/11/2024 4:17 PM EST We are ordering a stress test Do not take the Carvedilol the day before or the morning of the stress No Caffeine for 36 hours prior to the stress Repeat fasting blood work documented in this encounter [facility] 12-11-2024 History of Present illness Narrative Images from the original note were not included. [facility] SECTION OF [facility] Cardiology Christine ([facility] (PO[facility])) [address] [facility] [address] OUTPATIENT VISIT DATE 12/11/2024 PRIMARY CARE PHYSICIAN: David Wynn [address] [place] [address] HISTORY OF PRESENT ILLNESS: Ms. Valadez is a 69 year old woman has a history of coronary artery disease and anterior wall myocardial infarction in March 2023 when she presented to hospital with atypical back pain and was found to have evidence of ST elevation underwent emergent cardiac catheterization. She has a resulting ischemic cardiomyopathy ejection fraction of 30%, chronic systolic congestive heart failure, and dyslipidemia. She has a history of diabetes which is insulin requiring. She presents to the office for routine follow-up. Patient reports a few episodes of chest pain mostly right-sided but radiating toward the left. She is also had left upper arm pain. Symptoms are not consistent with exertion. There was no associated diaphoresis or shortness of breath. She had persistent symptoms and was seen in the emergency room. She ruled out for an acute coronary syndrome. PAST MEDICAL HISTORY Diagnosis Date Arthritis Asthma CERVICAL DISC DISPLACMNT 02/03/2008 Chronic systolic heart failure (HCC) Coronary artery disease Degenerative disc disease Diabetes mellitus type 2, controlled (HCC) Herniated disc HLD (hyperlipidemia) HTN (hypertension) Ischemic cardiomyopathy Migraines BELA (obstructive sleep apnea) Pericardial effusion 04/13/2023 Thyroid nodule Unspecified essential hypertension Essential hypertension PAST SURGICAL HISTORY Procedure Laterality Date ADENOIDECTOMY PRIMARY <AGE 12 Adenoidectomy APPENDECTOMY W/ exploratory lap BACK SURGERY HX CHOLECYSTECTOMY REMV CATARACT EXTRACAP,INSERT LENS Bilateral 09/2023 TONSILLECTOMY PRIMARY/SECONDARY <AGE 12 Tonsillectomy VAGINAL HYSTERECTOMY UTERUS 250 GM/< Hysterectomy, vaginal SOCIAL HISTORY Social History Tobacco Use Smoking status: Never Smokeless tobacco: Never Tobacco comments: Secondhand smoke exposure x 30 years (Father and 1st ) Substance Use Topics Alcohol use: Yes Comment: rare Drug use: No FAMILY HISTORY Problem Relation Age of Onset Heart Mother Allergies Mother Arthritis Mother Asthma Mother Genitourinary () Mother bladder suspension in her 50's Hearing Loss Mother Hypertension Mother Lipids Mother Osteoporosis Mother Heart Father Cancer Father sarcoma Diabetes Father Hearing Loss Father Hypertension Father Lipids Father Stroke Father TIA'S Heart Maternal Grandmother Heart Maternal Grandfather Heart Paternal Grandmother Diabetes Paternal Grandmother other (Goiter) Paternal Grandmother Heart Paternal Grandfather Cancer Paternal Aunt I lost 11 aunts and uncles Cancer Paternal Uncle I lost 11 aunts and uncles Diabetes Paternal Aunt Diabetes Maternal Uncle Headache Daughter migraines ALLERGIES: ALLERGIES Allergen Reactions Animal Dander Itching Itchy watery eyes, sneezing Imitrex [Sumatripta* Other: See Comments Ozempic [Semaglutid* Intolerance Constipation Propoxyphene Other: See Comments Steroids [Betametha* Steroids [Corticost* Other: See Comments blindness MEDICATIONS: Diclofenac Sodium 3 % gel Apply 0.5 g to affected area two times a day. cycloSPORINE (RESTASIS) 0.05 % ophthalmic emulsion Use 1 Drop in both eyes two times a day. azithromycin (ZITHROMAX) 250 mg tablet TAKE 2 TABLETS BY MOUTH TODAY, THEN TAKE 1 TABLET DAILY FOR 4 DAYS DIRECTED (Patient not taking: Reported on 10/23/2024) spironolactone (ALDACTONE) 25 mg tablet Take 0.5 tablets by mouth three times a week. sacubitril-valsartan (ENTRESTO) 24-26 mg tablet Take 1 tablet by mouth two times a day. nitroglycerin sublingual (NITROQUICK) 0.4 mg SL tablet Dissolve 1 tablet under the tongue every 5 minutes as needed for chest pain. bempedoic acid (NEXLETOL) 180 mg tablet Take 1 tablet (180 mg) by mouth once daily. TRESIBA FLEXTOUCH U-200 200 unit/mL (3 mL) injection Inject subcutaneously 70 units daily dapagliflozin propanediol (FARXIGA) 10 mg tablet Take 1 tablet by mouth daily with breakfast. clopidogrel (PLAVIX) 75 mg tablet Take 1 tablet by mouth once daily. blood sugar diagnostic (ONETOUCH ULTRA TEST) test strip Use as instructed to test blood sugar 3 times daily. DX: E11.42, insulin dependent. diphenhydrAMINE (BENADRYL ALLERGY) 12.5 mg/5 mL liquid NOVOLOG FLEXPEN U-100 INSULIN 100 unit/mL (3 mL) INJECT SUBCUTANEOUSLY BREAKFAST 20 UNITS, LUNCH 20 UNITS , DINNER 20 UNITS PLUS SCALE UP TO 70 UNITS DAILY carvedilol (COREG) 3.125 mg tablet take 1 tablet by mouth twice a day with food insulin needles, DISPOSABLE, (BD INSULIN PEN NEEDLE UF) 31 gauge x 03/30 Use 4 pen needles daily Multivitamin capsule Take 1 capsule by mouth once daily. aspirin, enteric coated (ASPIRIN, ENTERIC COATED) 81 mg EC tablet Take 1 tablet by mouth once daily. REVIEW OF SYSTEMS: Review of Systems Constitutional: Positive for malaise/fatigue. Negative for chills, fever and weight loss. HENT: Negative for hearing loss and sore throat. Eyes: Negative for blurred vision and double vision. Respiratory: Positive for shortness of breath. Cardiovascular: Negative. Gastrointestinal: Negative. Genitourinary: Negative for dysuria, frequency, hematuria and urgency. Musculoskeletal: Positive for myalgias. Skin: Negative. Neurological: Negative for dizziness, seizures, loss of consciousness, weakness and headaches. Endo/Heme/Allergies: Negative for environmental allergies. Does not bruise/bleed easily. Psychiatric/Behavioral: Negative for depression. PHYSICAL EXAMINATION: BP 138/90 Pulse 80 Resp 16 Ht 5' 5 (1.65m) Wt 192 lb (87.1kg) SpO2 98% BMI 31.95 kg/(m^2). General: Pleasant woman sitting appears comfortable no apparent distress she is alert and oriented x 3 HEENT: Carotid upstrokes are brisk bilateral without bruits no JVD appreciated. Pulmonary: Lungs are clear no rales, wheezes, rhonchi Cardiovascular: Normal S1, S2 with regular rate and rhythm. No murmurs, rubs, or gallops Extremities: Warm, well-perfused, no lower extremity edema. CARDIOVASCULAR MEDICINE TESTING: ECG in the office 06/22/2023: Normal sinus rhythm with normal axis and intervals. Poor R wave progression anteriorly with Q waves through V1-V6. Cardiac Catheterization/PCI 04/08/2023: Post- Procedure Diagnosis:Occluded mid LAD otherwise mild to moderate diffuse coronary artery disease right coronary dominant system. Percutaneous core intervention with drug-eluting stent placed from the proximal to mid LAD using IVUS assistance. Abnormal left ventricular function with distal anteroapical wall hypokinesis with an EF 35-40% Hemodynamics: LVEDP: 26 mmHg LV - AORTA: No gradient. Coronary Angiography: Left Main: Mild diffuse disease Left Anterior Descending: Moderate to large caliber vessel. The mid vessel is occluded just past the first septal adjunct professor of voice. The proximal vessel has mild to moderate diffuse calcified disease on IVUS evaluation. Circumflex: Large-caliber nondominant vessel. The proximal vessel has mild to moderate diffuse disease with a large first obtuse marginal branch with mild disease. Second obtuse marginal branch has a proximal 50-60% stenosis. Right Coronary Artery: Moderate to large caliber dominant vessel with mild to moderate diffuse disease Collaterals: None Percutaneous coronary intervention: Occlusion of the mid LAD treated with balloon angioplasty and drug-eluting stent placement. A 3.0 x 48 mm Synergy stent was deployed in the lesion and postdilated 3.5 mm distally and 4.2 mm proximally with a good angiographic result. Intravascular ultrasound was performed prior to stenting and post stent for adequacy of stent deployment and complexity of disease. The mid to distal LAD has severe diffuse disease postintervention. LV Gram: LVEF: 35-40% Wall Motion: Distal anterior and apical wall hypokinesis Echocardiogram 06/26/2024: - Technically difficult exam due to body habitus. - Exam indication: CAD - The left ventricle is mildly dilated. Left ventricular systolic function is moderately decreased. EF = 33 5% (2D 4-ch.) Grade I left ventricular diastolic dysfunction. The apex is akinetic, possibly aneurysmal. Consider repeat limited ECHO with contrast to assess for thrombus. - The right ventricle is normal in size. - Right ventricular systolic function is normal. - Ascending aorta measures 3.3cm. - Exam was compared with the prior echocardiographic exam performed on 06/21/2023. Prior LVEF was 33% Echocardiogram 06/21/2023: - Exam indication: CAD - The left ventricle is mildly dilated. There is mild concentric left ventricular hypertrophy. Left ventricular systolic function is moderately decreased. EF = 33 5% (2D 4-ch.) Indeterminate left ventricular diastolic dysfunction. - The right ventricle is normal in size. Right ventricular systolic function is mildly decreased. - There are no significant valvular abnormalities. - Definity unavailable. - The patient has not had a prior CC echocardiographic exam for comparison. Echocardiogram 04/13/2023: - Technically difficult exam due to body habitus and suboptimal positioning. - Exam indication: NSTEMI - The left ventricle is normal in size. Left ventricular systolic function is moderately decreased. EF = 34 5% (2D biplane) Definity contrast used for endocardial border detection. Left ventricular diastolic function was not evaluated. Wall motion abnormalities as detailed above - The right ventricle is normal in size. Right ventricular systolic function is normal. - Exam was compared with the prior CC echocardiographic exam performed on 04/09/2023. Pericardial effusion has improved, only trivial today adjacent to RV. Otherwise no significant change Echocardiogram 04/08/2023: CONCLUSIONS: - Technically difficult exam due to body habitus and suboptimal positioning. - Exam indication: Chest Pain - The left ventricle is normal in size. Left ventricular systolic function is severely decreased. EF = 28 5% (2D 4-ch.) Definity contrast used for endocardial border detection. Left ventricular diastolic function was not evaluated. - The right ventricle is small. Right ventricular systolic function is normal. - The patient has not had a prior CC echocardiographic exam for comparison. IMPRESSION: Ms. Valadez is a 69 year old with a history of diabetes insulin requiring who was recently admitted to the hospital with chest pain and evidence of ST elevation myocardial infarction with drug-eluting stent placement to the LAD. She has a resulting ischemic cardiomyopathy with ejection fraction of 30%, chronic systolic congestive heart failure. She is also treated for dyslipidemia. She presents to the office for follow-up. PLAN AND RECOMMENDATIONS: 1. 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 Will restratification with pharmacological stress test - NM CARDIAC PERF STRESS/PHARM - REGADENOSON 0.4 MG/5 ML INTRAVENOUS SYRINGE - AMINOPHYLLINE 250 MG/10 ML INTRAVENOUS SOLUTION - METOPROLOL TARTRATE 5 MG/5 ML INTRAVENOUS SOLUTION - COMPREHENSIVE METABOLIC PANEL 2. Cardiomyopathy, ischemic - ICD9: 414.8, ICD10: I25.5 Maintained on carvedilol, Farxiga, Entresto, and spironolactone 3. Chronic systolic congestive heart failure (HCC) - ICD9: 428.22, 428.0, ICD10: I50.22 Well-controlled on current regimen - NT PRO BNP 4. Essential hypertension - ICD9: 401.9, ICD10: I10 5. Mixed hyperlipidemia - ICD9: 272.2, ICD10: E78.2 Patient with history of severe statin intolerance. Currently maintained on Nexletol. Repeat fasting blood work - LIPID PANEL BASIC - COMPREHENSIVE METABOLIC PANEL 6. Statin intolerance - ICD9: 995.27, ICD10: Z78.9 Yared Dodd MD documented in this encounter [facility] 12-11-2024 Note HNO ID: [id number] Author: YARED DODD MD Service: ? Author Type: Physician Type: Progress Notes Filed: 12/11/2024 16:42 Note Text: [facility] Cardiology Christine ([facility]) [address] [address] OUTPATIENT VISIT DATE 12/11/2024 PRIMARY CARE PHYSICIAN: David Wynn [address] [place] [id number] HISTORY OF PRESENT ILLNESS: Ms. Valadez is a 69 year old woman has a history of coronary artery disease and anterior wall myocardial infarction in March 2023 when she presented to hospital with atypical back pain and was found to have evidence of ST elevation underwent emergent cardiac catheterization. She has a resulting ischemic cardiomyopathy ejection fraction of 30%, chronic systolic congestive heart failure, and dyslipidemia. She has a history of diabetes which is insulin requiring. She presents to the office for routine follow-up. Patient reports a few episodes of chest pain mostly right-sided but radiating toward the left. She is also had left upper arm pain. Symptoms are not consistent with exertion. There was no associated diaphoresis or shortness of breath. She had persistent symptoms and was seen in the emergency room. She ruled out for an acute coronary syndrome. PAST MEDICAL HISTORY Diagnosis Date Arthritis Asthma CERVICAL DISC DISPLACMNT 02/03/2008 Chronic systolic heart failure (HCC) Coronary artery disease Degenerative disc disease Diabetes mellitus type 2, controlled (HCC) Herniated disc HLD (hyperlipidemia) HTN (hypertension) Ischemic cardiomyopathy Migraines BELA (obstructive sleep apnea) Pericardial effusion 04/13/2023 Thyroid nodule Unspecified essential hypertension Essential hypertension PAST SURGICAL HISTORY Procedure Laterality Date ADENOIDECTOMY PRIMARY Adenoidectomy APPENDECTOMY W/ exploratory lap BACK SURGERY HX CHOLECYSTECTOMY REMV CATARACT EXTRACAP,INSERT LENS Bilateral 09/2023 TONSILLECTOMY PRIMARY/SECONDARY Tonsillectomy VAGINAL HYSTERECTOMY UTERUS 250 GM/< Hysterectomy, vaginal SOCIAL HISTORY Social History Tobacco Use Smoking status: Never Smokeless tobacco: Never Tobacco comments: Secondhand smoke exposure x 30 years (Father and 1st ) Substance Use Topics Alcohol use: Yes Comment: rare Drug use: No FAMILY HISTORY Problem Relation Age of Onset Heart Mother Allergies Mother Arthritis Mother Asthma Mother Genitourinary () Mother bladder suspension in her 50's Hearing Loss Mother Hypertension Mother Lipids Mother Osteoporosis Mother Heart Father Cancer Father sarcoma Diabetes Father Hearing Loss Father Hypertension Father Lipids Father Stroke Father TIA'S Heart Maternal Grandmother Heart Maternal Grandfather Heart Paternal Grandmother Diabetes Paternal Grandmother other (Goiter) Paternal Grandmother Heart Paternal Grandfather Cancer Paternal Aunt I lost 11 aunts and uncles Cancer Paternal Uncle I lost 11 aunts and uncles Diabetes Paternal Aunt Diabetes Maternal Uncle Headache Daughter migraines ALLERGIES: ALLERGIES Allergen Reactions Animal Dander Itching Itchy watery eyes, sneezing Imitrex [Sumatripta* Other: See Comments Ozempic [Semaglutid* Intolerance Constipation Propoxyphene Other: See Comments Steroids [Betametha* Steroids [Corticost* Other: See Comments blindness MEDICATIONS: Diclofenac Sodium 3 % gel Apply 0.5 g to affected area two times a day. cycloSPORINE (RESTASIS) 0.05 % ophthalmic emulsion Use 1 Drop in both eyes two times a day. azithromycin (ZITHROMAX) 250 mg tablet TAKE 2 TABLETS BY MOUTH TODAY, THEN TAKE 1 TABLET DAILY FOR 4 DAYS DIRECTED (Patient not taking: Reported on 10/23/2024) spironolactone (ALDACTONE) 25 mg tablet Take 0.5 tablets by mouth three times a week. sacubitril-valsartan (ENTRESTO) 24-26 mg tablet Take 1 tablet by mouth two times a day. nitroglycerin sublingual (NITROQUICK) 0.4 mg SL tablet Dissolve 1 tablet under the tongue every 5 minutes as needed for chest pain. bempedoic acid (NEXLETOL) 180 mg tablet Take 1 tablet (180 mg) by mouth once daily. TRESIBA FLEXTOUCH U-200 200 unit/mL (3 mL) injection Inject subcutaneously 70 units daily dapagliflozin propanediol (FARXIGA) 10 mg tablet Take 1 tablet by mouth daily with breakfast. clopidogrel (PLAVIX) 75 mg tablet Take 1 tablet by mouth once daily. blood sugar diagnostic (ONETOUCH ULTRA TEST) test strip Use as instructed to test blood sugar 3 times daily. DX: E11.42, insulin dependent. diphenhydrAMINE (BENADRYL ALLERGY) 12.5 mg/5 mL liquid NOVOLOG FLEXPEN U-100 INSULIN 100 unit/mL (3 mL) INJECT SUBCUTANEOUSLY BREAKFAST 20 UNITS, LUNCH 20 UNITS , DINNER 20 UNITS PLUS SCALE UP TO 70 UNITS DAILY carvedilol (COREG) 3.125 mg tablet take 1 tablet by mo (more content not included)... [facility] 12-05-2024 History of Present illness Narrative Radiology Service Progress Note PATIENT NAME: Kenny Valadez DATE OF SERVICE: December 05, 2024 TIME: 7:52 PM PATIENT IDENTITY VERIFICATION COMPLETED USING TWO (2) IDENTIFIERS: Name and Date of confirmed by patient verbally and Name and Date of confirmed by identification band. FALL SCREENING: Has the patient had 2 falls in the last year or 1 fall with injury or currently using an Ambulatory Assistive Device (Walker, Cane, Wheelchair, Crutches, etc.)? No PATIENT GENDER DATA: Assigned female at . status: : No status: N/A PATIENT RELEVANT IMPLANT DATA REVIEWED: Not Applicable PATIENT PRESENTS WITH AN IMPLANTABLE OR ATTACHED CORE ANALYST: N/A RADIOLOGY DEPARTMENT: Ultrasound PERIPHERAL IV DATA: Not applicable SIGNED BY: SUJEY Fam December 05, 2024 7:52 PM documented in this encounter [facility] 12-05-2024 Note HNO ID: [id number] Author: ALENA STUART CT Service: Radiology Author Type: Technologist Type: Progress Notes Filed: 12/05/2024 19:53 Note Text: Radiology Service Progress Note PATIENT NAME: Kenny Valadez DATE OF SERVICE: December 05, 2024 TIME: 7:52 PM PATIENT IDENTITY VERIFICATION COMPLETED USING TWO (2) IDENTIFIERS: Name and Date of confirmed by patient verbally and Name and Date of confirmed by identification band. FALL SCREENING: Has the patient had 2 falls in the last year or 1 fall with injury or currently using an Ambulatory Assistive Device (Walker, Cane, Wheelchair, Crutches, etc.)? No PATIENT GENDER DATA: Assigned female at . status: : No status: N/A PATIENT RELEVANT IMPLANT DATA REVIEWED: Not Applicable PATIENT PRESENTS WITH AN IMPLANTABLE OR ATTACHED CORE ANALYST: N/A RADIOLOGY DEPARTMENT: Ultrasound PERIPHERAL IV DATA: Not applicable SIGNED BY: SUJEY Fam December 05, 2024 7:52 PM [facility] 12-05-2024 Note HNO ID: [id number] Author: SUSHIL HAWKINS MD Service: ? Author Type: Physician Type: Progress Notes Filed: 12/18/2024 12:11 Note Text: HISTORY AND PHYSICAL Kenny Valadez 1955 REFERRING PHYSICIAN: Self CHIEF COMPLAINT: Consult (LARGE CYST ON L ARM/) HPI: The patient is a 69 year old female with a complaint of mass on her left forearm. This been present since the 70 this is increased in size significantly over this last year she states that she thinks has been firm entirely but now it is much harder causing more compression symptoms on her forearm. PAST MEDICAL HISTORY Diagnosis Date Arthritis Asthma CERVICAL DISC DISPLACMNT 02/03/2008 Chronic systolic heart failure (HCC) Coronary artery disease Degenerative disc disease Diabetes mellitus type 2, controlled (HCC) Herniated disc HLD (hyperlipidemia) HTN (hypertension) Ischemic cardiomyopathy Migraines BELA (obstructive sleep apnea) Pericardial effusion 04/13/2023 Thyroid nodule Unspecified essential hypertension Essential hypertension PAST SURGICAL HISTORY Procedure Laterality Date ADENOIDECTOMY PRIMARY Adenoidectomy APPENDECTOMY W/ exploratory lap BACK SURGERY HX CHOLECYSTECTOMY REMV CATARACT EXTRACAP,INSERT LENS Bilateral 09/2023 TONSILLECTOMY PRIMARY/SECONDARY Tonsillectomy VAGINAL HYSTERECTOMY UTERUS 250 GM/< Hysterectomy, vaginal Current Outpatient Medications Medication Sig Diclofenac Sodium 3 % gel Apply 0.5 g to affected area two times a day. cycloSPORINE (RESTASIS) 0.05 % ophthalmic emulsion Use 1 Drop in both eyes two times a day. azithromycin (ZITHROMAX) 250 mg tablet TAKE 2 TABLETS BY MOUTH TODAY, THEN TAKE 1 TABLET DAILY FOR 4 DAYS DIRECTED (Patient not taking: Reported on 10/23/2024) spironolactone (ALDACTONE) 25 mg tablet Take 0.5 tablets by mouth three times a week. sacubitril-valsartan (ENTRESTO) 24-26 mg tablet Take 1 tablet by mouth two times a day. nitroglycerin sublingual (NITROQUICK) 0.4 mg SL tablet Dissolve 1 tablet under the tongue every 5 minutes as needed for chest pain. bempedoic acid (NEXLETOL) 180 mg tablet Take 1 tablet (180 mg) by mouth once daily. TRESIBA FLEXTOUCH U-200 200 unit/mL (3 mL) injection Inject subcutaneously 70 units daily dapagliflozin propanediol (FARXIGA) 10 mg tablet Take 1 tablet by mouth daily with breakfast. clopidogrel (PLAVIX) 75 mg tablet Take 1 tablet by mouth once daily. blood sugar diagnostic ([employer] Life GuidesTOUCH ULTRA TEST) test strip Use as instructed to test blood sugar 3 times daily. DX: E11.42, insulin dependent. diphenhydrAMINE (BENADRYL ALLERGY) 12.5 mg/5 mL liquid NOVOLOG FLEXPEN U-100 INSULIN 100 unit/mL (3 mL) INJECT SUBCUTANEOUSLY BREAKFAST 20 UNITS, LUNCH 20 UNITS , DINNER 20 UNITS PLUS SCALE UP TO 70 UNITS DAILY carvedilol (COREG) 3.125 mg tablet take 1 tablet by mouth twice a day with food insulin needles, DISPOSABLE, (BD INSULIN PEN NEEDLE UF) 31 gauge x 5/16 Use 4 pen needles daily Multivitamin capsule Take 1 capsule by mouth once daily. aspirin, enteric coated (ASPIRIN, ENTERIC COATED) 81 mg EC tablet Take 1 tablet by mouth once daily. No current facility-administered medications for this visit. ALLERGIES: Animal Dander, Imitrex [Sumatriptan], Ozempic [Semaglutide], Propoxyphene, Steroids [Betamethasone Dipropionate], and Steroids [Corticosteroids (Glucocorticoids)] PERSONAL HISTORY: Social History Tobacco Use Smoking status: Never Smokeless tobacco: Never Tobacco comments: Secondhand smoke exposure x 30 years (Father and 1st ) Substance Use Topics Alcohol use: Yes Comment: rare Drug use: No FAMILY HISTORY: FAMILY HISTORY Problem Relation Age of Onset Heart Mother Allergies Mother Arthritis Mother Asthma Mother Genitourinary () Mother bladder suspension in her 50's Hearing Loss Mother Hypertension Mother Lipids Mother Osteoporosis Mother Heart Father Cancer Father sarcoma Diabetes Father Hearing Loss Father Hypertension Father Lipids Father Stroke Father TIA'S Heart Maternal Grandmother Heart Maternal Grandfather Heart Paternal Grandmother Diabetes Paternal Grandmother other (Goiter) Paternal Grandmother Heart Paternal Grandfather Cancer Paternal Aunt I lost 11 aunts and uncles Cancer Paternal Uncle I lost 11 aunts and uncles Diabetes Paternal Aunt Diabetes Maternal Uncle Headache Daughter migraines REVIEW OF SYMPTOMS: negative except as noted above PHYSICAL EXAMINATION: General: The patient is 69 year old female, well nourished, well hydrated in no acute distress. The patient is oriented to time, place, and person. VITALS: Blood pressure 113/78, pulse 86, height 165.1 cm (5' 5), weight 87 kg (191 lb 11.2 oz), SpO2 98%. HEENT: Normal cephalic, ataumatic, pupils are equally round, sclera are anicteric, mucous membranes are moist, oropharynx is clear. Neck has no masses, asymmetry or lymphaden (more content not included)... [facility] 12-05-2024 History of Present illness Narrative HISTORY AND PHYSICAL Kenny Noyola Rory 1955 REFERRING PHYSICIAN: Self CHIEF COMPLAINT: Consult (LARGE CYST ON L ARM/) HPI: The patient is a 69 year old female with a complaint of mass on her left forearm. This been present since the this is increased in size significantly over this last year she states that she thinks has been firm entirely but now it is much harder causing more compression symptoms on her forearm. PAST MEDICAL HISTORY Diagnosis Date Arthritis Asthma CERVICAL DISC DISPLACMNT 02/03/2008 Chronic systolic heart failure (HCC) Coronary artery disease Degenerative disc disease Diabetes mellitus type 2, controlled (HCC) Herniated disc HLD (hyperlipidemia) HTN (hypertension) Ischemic cardiomyopathy Migraines BELA (obstructive sleep apnea) Pericardial effusion 04/13/2023 Thyroid nodule Unspecified essential hypertension Essential hypertension PAST SURGICAL HISTORY Procedure Laterality Date ADENOIDECTOMY PRIMARY <AGE 12 Adenoidectomy APPENDECTOMY W/ exploratory lap BACK SURGERY HX CHOLECYSTECTOMY REMV CATARACT EXTRACAP,INSERT LENS Bilateral 09/2023 TONSILLECTOMY PRIMARY/SECONDARY <AGE 12 Tonsillectomy VAGINAL HYSTERECTOMY UTERUS 250 GM/< Hysterectomy, vaginal Current Outpatient Medications Medication Sig Diclofenac Sodium 3 % gel Apply 0.5 g to affected area two times a day. cycloSPORINE (RESTASIS) 0.05 % ophthalmic emulsion Use 1 Drop in both eyes two times a day. azithromycin (ZITHROMAX) 250 mg tablet TAKE 2 TABLETS BY MOUTH TODAY, THEN TAKE 1 TABLET DAILY FOR 4 DAYS DIRECTED (Patient not taking: Reported on 10/23/2024) spironolactone (ALDACTONE) 25 mg tablet Take 0.5 tablets by mouth three times a week. sacubitril-valsartan (ENTRESTO) 24-26 mg tablet Take 1 tablet by mouth two times a day. nitroglycerin sublingual (NITROQUICK) 0.4 mg SL tablet Dissolve 1 tablet under the tongue every 5 minutes as needed for chest pain. bempedoic acid (NEXLETOL) 180 mg tablet Take 1 tablet (180 mg) by mouth once daily. TRESIBA FLEXTOUCH U-200 200 unit/mL (3 mL) injection Inject subcutaneously 70 units daily dapagliflozin propanediol (FARXIGA) 10 mg tablet Take 1 tablet by mouth daily with breakfast. clopidogrel (PLAVIX) 75 mg tablet Take 1 tablet by mouth once daily. blood sugar diagnostic (INcubesUCH ULTRA TEST) test strip Use as instructed to test blood sugar 3 times daily. DX: E11.42, insulin dependent. diphenhydrAMINE (BENADRYL ALLERGY) 12.5 mg/5 mL liquid NOVOLOG FLEXPEN U-100 INSULIN 100 unit/mL (3 mL) INJECT SUBCUTANEOUSLY BREAKFAST 20 UNITS, LUNCH 20 UNITS , DINNER 20 UNITS PLUS SCALE UP TO 70 UNITS DAILY carvedilol (COREG) 3.125 mg tablet take 1 tablet by mouth twice a day with food insulin needles, DISPOSABLE, (BD INSULIN PEN NEEDLE UF) 31 gauge x 16 Use 4 pen needles daily Multivitamin capsule Take 1 capsule by mouth once daily. aspirin, enteric coated (ASPIRIN, ENTERIC COATED) 81 mg EC tablet Take 1 tablet by mouth once daily. No current facility-administered medications for this visit. ALLERGIES: Animal Dander, Imitrex [Sumatriptan], Ozempic [Semaglutide], Propoxyphene, Steroids [Betamethasone Dipropionate], and Steroids [Corticosteroids (Glucocorticoids)] PERSONAL HISTORY: Social History Tobacco Use Smoking status: Never Smokeless tobacco: Never Tobacco comments: Secondhand smoke exposure x 30 years (Father and 1st ) Substance Use Topics Alcohol use: Yes Comment: rare Drug use: No FAMILY HISTORY: FAMILY HISTORY Problem Relation Age of Onset Heart Mother Allergies Mother Arthritis Mother Asthma Mother Genitourinary () Mother bladder suspension in her 50's Hearing Loss Mother Hypertension Mother Lipids Mother Osteoporosis Mother Heart Father Cancer Father sarcoma Diabetes Father Hearing Loss Father Hypertension Father Lipids Father Stroke Father TIA'S Heart Maternal Grandmother Heart Maternal Grandfather Heart Paternal Grandmother Diabetes Paternal Grandmother other (Goiter) Paternal Grandmother Heart Paternal Grandfather Cancer Paternal Aunt I lost 11 aunts and uncles Cancer Paternal Uncle I lost 11 aunts and uncles Diabetes Paternal Aunt Diabetes Maternal Uncle Headache Daughter migraines REVIEW OF SYMPTOMS: negative except as noted above PHYSICAL EXAMINATION: General: The patient is 69 year old female, well nourished, well hydrated in no acute distress. The patient is oriented to time, place, and person. VITALS: Blood pressure 113/78, pulse 86, height 165.1 cm (5' 5), weight 87 kg (191 lb 11.2 oz), SpO2 98%. HEENT: Normal cephalic, ataumatic, pupils are equally round, sclera are anicteric, mucous membranes are moist, oropharynx is clear. Neck has no masses, asymmetry or lymphadenopathy. Thyroid is unremarkable. Other: Left forearm has a 5 cm oval very firm lesion on her forearm. Overlying skin shows that there is some vascular abnormalities that you can see it is not appreciably tender to touch it does not have the appearance of what I would think a sebaceous cyst would be and I am actually worried this could be a soft tissue sarcoma. Axillary exam in the area does not reveal any lymphadenopathy on the left side. LABORATORY VALUES: As Noted RADIOLOGIC STUDIES: As Noted Assessment IMPRESSION: Arm mass, left (primary encounter diagnosis) PLAN: I am going to obtain an ultrasound of this area. I think this is going to need to be dealt with by oncologic surgery and I am going to get a consultation with Dr. Lawton Diagnoses: (R22.32) Arm mass, left (primary encounter diagnosis) Return to Clinic: The patient is instructed to follow-up with me after the testing has been completed. Sushil Hawkins III, MD documented in this encounter [facility] 10-24-2024 Telephone encounter Note Images from the original note were not included. Lilia Obregon PA-C [facility]; Sowmya Israel RN Please call patient and let her know that Dr. He recommended US of the mass on her left forearm and schedule US. I will reach out to her once we have the results. Faby Wilhelm Spoke with patient and relayed message. Patient verbalized understanding. Pt is currently in ED for CP Please call her tomorrow after 130pm [facility] 10-24-2024 Miscellaneous Notes Images from the original note were not included. Lilia Obregon PA-C [facility]; Sowmya Israel RN Please call patient and let her know that Dr. He recommended US of the mass on her left forearm and schedule US. I will reach out to her once we have the results. Faby Wilhelm Spoke with patient and relayed message. Patient verbalized understanding. Pt is currently in ED for CP Please call her tomorrow after 130pm documented in this encounter [facility] 10-24-2024 Instructions Nelly Brown APRN.MANAGER NEWS - 10/24/2024 1:40 PM EST Continue current medications as prescribed. Red flags reviewed on when to go to ER. 2. Weigh yourself daily. Call me if your weight increases by 3-4 pounds in a 1-4 day period of time. 3. Continue low salt (2000 mg per day) diet. 4. Be as active as you are able. If you get tired, just stop and rest for a while. 5. Come back and see me on Wednesday 1:30. If you have any question or concern, you can call me at [phone]. I am out of the office from 11/03- 11/16. Please reach out to Jody Sparks. documented in this encounter [facility] 10-24-2024 History of Present illness Narrative Images from the original note were not included. [facility] OUTPATIENT VISIT DATE October 24, 2024 OUTPATIENT VISIT TYPE ESTABLISHED PRIMARY CARE PHYSICIAN: David Wynn DO CHIEF COMPLAINT: Patient presents with: Breathing Problem HISTORY OF PRESENT ILLNESS: Kenny Valadez is a 69 year old female who presents today for a follow-up visit in the Heart Failure Clinic. The patient was last seen in office 07/24. The following changes were made at that time: decrease in spironolactone to three times a week. Patient has had 0 hospitalizations and/or emergency room encounters in the last 12 months. Today, the patient reports feeling short of breath and is if her weight is up. Feels chest discomfort when she presses on her chest. States she felt as if she was going to pass out on Wednesday. States her heart rate is normally 55-60 bpm and dropped to mid 40's. Noticed her heart rate dropped to 55 bpm over night the other night. She mentions her heart rate usually is approx 70 bpms. States she was going to go to the ER to be evaluated however, she was looking at the wait times and did not want to wait that long. Chest discomfort occurs with rest and activity. Lasts for several hours. Denies feeling palpitations. Feels this is 7/10. Takes baby aspirin at the onset of pain. Denies having stress test recently. Did not want to go to ER due to the wait time. Discussed going to ER however, patient does not wish to go at this time. States she has labs for Dr. Dodd. Takes her spironolactone intermittently throughout the week. Does not always take this three times a week. She continues to experience shoulder spasms. Thought she was dehydrated during the time she was last seen in office by the [facility] MAINTENANCE SUPERVISOR in the [facility] on 07/24. States she continues to experience these muscle spasms when she takes spironolactone. 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 Takes her spironolactone in the morning but also states she is up in the middle of the night due to the spironolactone. She states she is not taking Nexletol. Unsure of why she stopped taking it. Has stopped mounjaro due to GI issues and has been off of this for a couple of weeks. Has maintained weight of approx 183 lbs. Has been sugar free for the past 5 days. States she is less stressed at school than at home. Takes care of her son who has schizophrenia. IMPRESSION: NYHA Functional Class: II Stage: C heart failure Mrs. Valadez is a 69 year old female who presents for follow up for chronic systolic heart failure. She appears euvolemic on examination. No changes to medication. As she has complained of 7/10 chest discomfort during visit, advised patient to go to ER for further evaluation. The patient states she does not want to wait in the ER. She also states she cannot miss work. Discussed with patient importance of being evaluated in the ER based on symptoms. She can choose to not go however, this would be against medical advice. At last, the patient decided to be evaluated as she states she is very worried about this pain. Reviewed plan of care with patient. All questions answered at this time. PLAN AND RECOMMENDATIONS: 1. Chronic systolic congestive heart failure (HCC) - ICD9: 428.22, 428.0, ICD10: I50.22 (primary diagnosis) - Euvolemic on examination. EF-33% - Reduce Spironolactone to 12.5 mg three times weekly. - Continue Coreg - Continue Entresto - Continue Farxiga - Daily weights. Call if weight increases by 3-4 lbs in 1-4 days period of time. - 2g low sodium diet - Activity as tolerated. Rest breaks as needed. - Follow up in HF Clinic in 03/20 or sooner PRN. 2. Cardiomyopathy, ischemic - ICD9: 414.8, ICD10: I25.5 - Stable at this time. - Continue current medications at current doses. -ER visit today for CP 3. Primary hypertension - ICD9: 401.9, ICD10: I10 - Controlled - Continue current medications - Recommend home blood pressure monitoring, to bring results to next visit - Encouraged sodium restriction, DASH or Mediterranean diet - Recommend regular aerobic exercise Follow up appointment with Dr. Dodd in November 2024. PAST MEDICAL HISTORY Diagnosis Date Arthritis Asthma CERVICAL DISC DISPLACMNT 02/03/2008 Chronic systolic heart failure (HCC) Coronary artery disease Degenerative disc disease Diabetes mellitus type 2, controlled (HCC) Herniated disc HLD (hyperlipidemia) HTN (hypertension) Ischemic cardiomyopathy Migraines BELA (obstructive sleep apnea) Pericardial effusion 04/13/2023 Thyroid nodule Unspecified essential hypertension Essential hypertension PAST SURGICAL HISTORY Procedure Laterality Date ADENOIDECTOMY PRIMARY <AGE 12 Adenoidectomy APPENDECTOMY W/ exploratory lap BACK SURGERY HX CHOLECYSTECTOMY REMV CATARACT EXTRACAP,INSERT LENS Bilateral 09/2023 TONSILLECTOMY PRIMARY/SECONDARY <AGE 12 Tonsillectomy VAGINAL HYSTERECTOMY UTERUS 250 GM/< Hysterectomy, vaginal Social History Tobacco Use Smoking status: Never Smokeless tobacco: Never Tobacco comments: Secondhand smoke exposure x 30 years (Father and 1st ) Substance Use Topics Alcohol use: Yes Comment: rare Drug use: No Family History Problem Relation Age of Onset Heart Mother Allergies Mother Arthritis Mother Asthma Mother Genitourinary () Mother bladder suspension in her 50's Hearing Loss Mother Hypertension Mother Lipids Mother Osteoporosis Mother Heart Father Cancer Father sarcoma Diabetes Father Hearing Loss Father Hypertension Father Lipids Father Stroke Father TIA'S Heart Maternal Grandmother Heart Maternal Grandfather Heart Paternal Grandmother Diabetes Paternal Grandmother other (Goiter) Paternal Grandmother Heart Paternal Grandfather Cancer Paternal Aunt I lost 11 aunts and uncles Cancer Paternal Uncle I lost 11 aunts and uncles Diabetes Paternal Aunt Diabetes Maternal Uncle Headache Daughter migraines ALLERGIES Allergen Reactions Animal Dander Itching Itchy watery eyes, sneezing Imitrex [Sumatripta* Other: See Comments Ozempic [Semaglutid* Intolerance Constipation Propoxyphene Other: See Comments Steroids [Betametha* Steroids [Corticost* Other: See Comments blindness CURRENT MEDICATIONS: Current Outpatient Medications Medication Sig Dispense Refill Diclofenac Sodium 3 % gel Apply 0.5 g to affected area two times a day. 100 g 0 cycloSPORINE (RESTASIS) 0.05 % ophthalmic emulsion Use 1 Drop in both eyes two times a day. 180 Each 0 sacubitril-valsartan (ENTRESTO) 24-26 mg tablet Take 1 tablet by mouth two times a day. 180 tablet 1 nitroglycerin sublingual (NITROQUICK) 0.4 mg SL tablet Dissolve 1 tablet under the tongue every 5 minutes as needed for chest pain. 25 tablet 0 TRESIBA FLEXTOUCH U-200 200 unit/mL (3 mL) injection Inject subcutaneously 70 units daily 12 mL 11 dapagliflozin propanediol (FARXIGA) 10 mg tablet Take 1 tablet by mouth daily with breakfast. 90 tablet 3 clopidogrel (PLAVIX) 75 mg tablet Take 1 tablet by mouth once daily. 90 tablet 3 blood sugar diagnostic (The [employer] Life GuidesTOUCH ULTRA TEST) test strip Use as instructed to test blood sugar 3 times daily. DX: E11.42, insulin dependent. 300 Strip 3 diphenhydrAMINE (BENADRYL ALLERGY) 12.5 mg/5 mL liquid NOVOLOG FLEXPEN U-100 INSULIN 100 unit/mL (3 mL) INJECT SUBCUTANEOUSLY BREAKFAST 20 UNITS, LUNCH 20 UNITS , DINNER 20 UNITS PLUS SCALE UP TO 70 UNITS DAILY 30 mL 11 carvedilol (COREG) 3.125 mg tablet take 1 tablet by mouth twice a day with food 180 tablet 3 insulin needles, DISPOSABLE, (BD INSULIN PEN NEEDLE UF) 31 gauge x 5/16 Use 4 pen needles daily 400 Each 3 Multivitamin capsule Take 1 capsule by mouth once daily. aspirin, enteric coated (ASPIRIN, ENTERIC COATED) 81 mg EC tablet Take 1 tablet by mouth once daily. azithromycin (ZITHROMAX) 250 mg tablet TAKE 2 TABLETS BY MOUTH TODAY, THEN TAKE 1 TABLET DAILY FOR 4 DAYS DIRECTED (Patient not taking: Reported on 10/23/2024) spironolactone (ALDACTONE) 25 mg tablet Take 0.5 tablets by mouth three times a week. bempedoic acid (NEXLETOL) 180 mg tablet Take 1 tablet (180 mg) by mouth once daily. 90 tablet 3 No current facility-administered medications for this visit. REVIEW OF SYSTEMS: GENERAL: Positive for:Weight loss HEENT: Negative for: Headache, Impaired Vision, Glasses, Hearing Impairment, Ringing in Ears, Nosebleeds, Poor Dental Care, Bleeding Gums and Dentures. NECK: Negative for: Swelling, Pain, Stiffness RESPIRATORY: Positive for: Shortness of breath GASTROINTESTINAL: Negative for: Trouble swallowing, Heartburn, Change in bowel habits, Blood in stool, Dark black stools MUSCULOSKELETAL: Positive for: Muscle or joint pain NEUROLOGIC/PSYCHIATRIC: Negative for: Weakness, Paralysis, Numbness, Tingling, Tremor, Nervousness or anxiety, Depressed mood, Memory loss SKIN: Negative for: Rash, Itching HEMATOLOGICAL/LYMPHATIC: Positive for: Easy bruising and Easy bleeding ENDOCRINE: Negative for: Heat or Cold Intolerance, Excessive Sweating, Frequent Urination, Frequent Thirst PHYSICAL EXAMINATION: 10/24/24 1335 BP: 123/73 Pulse: 75 SpO2: 99% Weight: 83 kg (183 lb) General: Normal exam, no distress, overweight Skin: No clubbing, no cyanosis. Lungs: Chest clear to auscultation Heart: Rhythm: regular rate and rhythm, Rate: normal, no murmur Abdomen: Normal, Obesity Extremities: Normal exam of the extremities CARDIOVASCULAR MEDICINE TESTING: ECHO 06/26/2024: CONCLUSIONS: - Technically difficult exam due to body habitus. - Exam indication: CAD - The left ventricle is mildly dilated. Left ventricular systolic function is moderately decreased. EF = 33 5% (2D 4-ch.) Grade I left ventricular diastolic dysfunction. The apex is akinetic, possibly aneurysmal. Consider repeat limited ECHO with contrast to assess for thrombus. - The right ventricle is normal in size. - Right ventricular systolic function is normal. - Ascending aorta measures 3.3cm. - Exam was compared with the prior echocardiographic exam performed on 06/21/2023. Prior LVEF was 33% No new or recent labs to review. I have personally reviewed the Laboratory Testing and Echocardiogram. COUNSELING: We discussed the following non-pharmacological measures during this visit: Smoking and alcohol abstinence/cessation, if applicable Dietary and medication compliance Monitoring daily weights and blood pressures Exercise regimen When to call our office Heart Failure Education Booklet: Previously given. Discussed red flags and when to call MD/CITY DISPATCH SUPERVISOR or go to ED. Medications reconciled at end of visit: yes I spent 45 minutes in this visit, with more than 50% of the time devoted to patient counseling. SIGNATURE: Nelly Brown APRN.CNP PATIENT NAME: Kenny Valadez DATE: October 24, 2024 TIME: 1330 documented in this encounter [facility] 10-24-2024 Note HNO ID: [id number] Author: NELLY BROWN APRN.CNP Service: ? Author Type: Nurse Practitioner Type: Progress Notes Filed: 10/24/2024 14:25 Note Text: [facility] OUTPATIENT VISIT DATE October 24, 2024 OUTPATIENT VISIT TYPE ESTABLISHED PRIMARY CARE PHYSICIAN: David Wynn DO CHIEF COMPLAINT: Patient presents with: Breathing Problem HISTORY OF PRESENT ILLNESS: Kenny Valadez is a 69 year old female who presents today for a follow-up visit in the Heart Failure Clinic. The patient was last seen in office 07/24. The following changes were made at that time: decrease in spironolactone to three times a week. Patient has had 0 hospitalizations and/or emergency room encounters in the last 12 months. Today, the patient reports feeling short of breath and is if her weight is up. Feels chest discomfort when she presses on her chest. States she felt as if she was going to pass out on Wednesday. States her heart rate is normally 55-60 bpm and dropped to mid 40's. Noticed her heart rate dropped to 55 bpm over night the other night. She mentions her heart rate usually is approx 70 bpms. States she was going to go to the ER to be evaluated however, she was looking at the wait times and did not want to wait that long. Chest discomfort occurs with rest and activity. Lasts for several hours. Denies feeling palpitations. Feels this is 7/10. Takes baby aspirin at the onset of pain. Denies having stress test recently. Did not want to go to ER due to the wait time. Discussed going to ER however, patient does not wish to go at this time. States she has labs for Dr. Dodd. Takes her spironolactone intermittently throughout the week. Does not always take this three times a week. She continues to experience shoulder spasms. Thought she was dehydrated during the time she was last seen in office by the SEWER MAINTENANCE SUPERVISOR in the [facility] on 07/24. States she continues to experience these muscle spasms when she takes spironolactone. 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 Takes her spironolactone in the morning but also states she is up in the middle of the night due to the spironolactone. She states she is not taking Nexletol. Unsure of why she stopped taking it. Has stopped mounjaro due to GI issues and has been off of this for a couple of weeks. Has maintained weight of approx 183 lbs. Has been sugar free for the past 5 days. States she is less stressed at school than at home. Takes care of her son who has schizophrenia. IMPRESSION: NYHA Functional Class: II Stage: C heart failure Mrs. Valadez is a 69 year old female who presents for follow up for chronic systolic heart failure. She appears euvolemic on examination. No changes to medication. As she has complained of 7/10 chest discomfort during visit, advised patient to go to ER for further evaluation. The patient states she does not want to wait in the ER. She also states she cannot miss work. Discussed with patient importance of being evaluated in the ER based on symptoms. She can choose to not go however, this would be against medical advice. At last, the patient decided to be evaluated as she states she is very worried about this pain. Reviewed plan of care with patient. All questions answered at this time. PLAN AND RECOMMENDATIONS: 1. Chronic systolic congestive heart failure (HCC) - ICD9: 428.22, 428.0, ICD10: I50.22 (primary diagnosis) - Euvolemic on examination. EF-33% - Reduce Spironolactone to 12.5 mg three times weekly. - Continue Coreg - Continue Entresto - Continue Farxiga - Daily weights. Call if weight increases by 3-4 lbs in 1-4 days period of time. - 2g low sodium diet - Activity as tolerated. Rest breaks as needed. - Follow up in HF Clinic in 03/20 or sooner PRN. 2. Cardiomyopathy, ischemic - ICD9: 414.8, ICD10: I25.5 - Stable at this time. - Continue current medications at current doses. -ER visit today for CP 3. Primary hypertension - ICD9: 401.9, ICD10: I10 - Controlled - Continue current medications - Recommend home blood pressure monitoring, to bring results to next visit - Encouraged sodium restriction, DASH or Mediterranean diet - Recommend regular aerobic exercise Follow up appointment with Dr. Dodd in November 2024. PAST MEDICAL HISTORY Diagnosis Date Arthritis Asthma CERVICAL DISC DISPLACMNT 02/03/2008 Chronic systolic heart failure (HCC) Coronary artery disease Degenerative disc disease Diabetes mellitus type 2, controlled (HCC) Herniated disc HLD (hyperlipidemia) HTN (hypertension) Ischemic cardiomyopathy Migraines BELA (obstructive sleep apnea) Pericardial effusion 04/13/2023 Thyroid nodule Unspecified essential hypertension Essential hypertension PAST SURGICAL HISTORY Procedure Laterality Date ADENOIDECTOMY PRIMARY Adenoidectomy APPENDECTOMY W/ explorato (more content not included)... [facility] 10-23-2024 Note HNO ID: [id number] Author: LILIA OBREGON PA-C Service: ? Author Type: Physician Project Lead Type: Progress Notes Filed: 10/24/2024 14:51 Note Text: Lilia Obregon PA-C Department of Orthopaedics Orthopaedics [address] [place] [id number] Dept: [phone] October 23, 2024 SUBJECTIVE: CHIEF COMPLAINT: New and Pain of the Right Shoulder HPI: Ms. Kenny Valadez is a 69 year old RHD female. She presents today with right shoulder pain has been present for the past 15 years. Today she rates her pain an 3 on a scale of 0-10 at rest. The pain is worse with any activity and increases to an 8 out of 10 at its worst. Describes the pain as intermittent and sharp. She is not currently take any medication for it as she is unable to take Tylenol due to liver issues or NSAIDs as she is on Plavix. She notes that approximately 15 years ago she was told that she has a rotator cuff injury but states that she was told she was not a surgical candidate due to multiple herniated disks in her neck. She denies any new numbness/tingling, weakness or previous shoulder surgeries. She also has a mass on her left forearm that has been present since 1970s that has been increasing in size. She is interested in getting this removed. Past Medical History: PAST MEDICAL HISTORY Diagnosis Date Arthritis Asthma CERVICAL DISC DISPLACMNT 02/03/2008 Chronic systolic heart failure (HCC) Coronary artery disease Degenerative disc disease Diabetes mellitus type 2, controlled (HCC) Herniated disc HLD (hyperlipidemia) HTN (hypertension) Ischemic cardiomyopathy Migraines BELA (obstructive sleep apnea) Pericardial effusion 04/13/2023 Thyroid nodule Unspecified essential hypertension Essential hypertension Past Surgical History: PAST SURGICAL HISTORY Procedure Laterality Date ADENOIDECTOMY PRIMARY Adenoidectomy APPENDECTOMY W/ exploratory lap BACK SURGERY HX CHOLECYSTECTOMY REMV CATARACT EXTRACAP,INSERT LENS Bilateral 09/2023 TONSILLECTOMY PRIMARY/SECONDARY Tonsillectomy VAGINAL HYSTERECTOMY UTERUS 250 GM/< Hysterectomy, vaginal Family History: FAMILY HISTORY Problem Relation Age of Onset Heart Mother Allergies Mother Arthritis Mother Asthma Mother Genitourinary () Mother bladder suspension in her 50's Hearing Loss Mother Hypertension Mother Lipids Mother Osteoporosis Mother Heart Father Cancer Father sarcoma Diabetes Father Hearing Loss Father Hypertension Father Lipids Father Stroke Father TIA'S Heart Maternal Grandmother Heart Maternal Grandfather Heart Paternal Grandmother Diabetes Paternal Grandmother other (Goiter) Paternal Grandmother Heart Paternal Grandfather Cancer Paternal Aunt I lost 11 aunts and uncles Cancer Paternal Uncle I lost 11 aunts and uncles Diabetes Paternal Aunt Diabetes Maternal Uncle Headache Daughter migraines Social History: Social History Tobacco Use Smoking status: Never Smokeless tobacco: Never Tobacco comments: Secondhand smoke exposure x 30 years (Father and 1st ) Substance Use Topics Alcohol use: Yes Comment: rare Drug use: No Medications: Current Outpatient Medications Medication Sig cycloSPORINE (RESTASIS) 0.05 % ophthalmic emulsion Use 1 Drop in both eyes two times a day. spironolactone (ALDACTONE) 25 mg tablet Take 0.5 tablets by mouth three times a week. sacubitril-valsartan (ENTRESTO) 24-26 mg tablet Take 1 tablet by mouth two times a day. nitroglycerin sublingual (NITROQUICK) 0.4 mg SL tablet Dissolve 1 tablet under the tongue every 5 minutes as needed for chest pain. bempedoic acid (NEXLETOL) 180 mg tablet Take 1 tablet (180 mg) by mouth once daily. TRESIBA FLEXTOUCH U-200 200 unit/mL (3 mL) injection Inject subcutaneously 70 units daily dapagliflozin propanediol (FARXIGA) 10 mg tablet Take 1 tablet by mouth daily with breakfast. clopidogrel (PLAVIX) 75 mg tablet Take 1 tablet by mouth once daily. blood sugar diagnostic (The [employer] GuidesTOUCH ULTRA TEST) test strip Use as instructed to test blood sugar 3 times daily. DX: E11.42, insulin dependent. diphenhydrAMINE (BENADRYL ALLERGY) 12.5 mg/5 mL liquid NOVOLOG FLEXPEN U-100 INSULIN 100 unit/mL (3 mL) INJECT SUBCUTANEOUSLY BREAKFAST 20 UNITS, LUNCH 20 UNITS , DINNER 20 UNITS PLUS SCALE UP TO 70 UNITS DAILY carvedilol (COREG) 3.125 mg tablet take 1 tablet by mouth twice a day with food insulin needles, DISPOSABLE, (BD INSULIN PEN NEEDLE UF) 31 gauge x 16 Use 4 pen needles daily Multivitamin capsule Take 1 capsule by mouth once daily. aspirin, enteric coated (ASPIRIN, ENTERIC COATED) 81 mg EC tablet Take 1 tablet by mouth once daily. Diclofenac Sodium 3 % gel Apply 0.5 g to affected area two times a day. tirzepatide (MOUNJARO) 2.5 mg/0.5 mL pen injector Inject 2.5 mg subcutaneously one time a week. X 4 wks then increase to 5 mg weekly. (Patient not taking: Report (more content not included)... [facility] 10-23-2024 History of Present illness Narrative Lilia Obregon PA-C Department of Orthopaedics Orthopaedics [address] [place], [place] [id number] Dept: [phone] October 23, 2024 SUBJECTIVE: CHIEF COMPLAINT: New and Pain of the Right Shoulder HPI: Ms. Kenny Valadez is a 69 year old RHD female. She presents today with right shoulder pain has been present for the past 15 years. Today she rates her pain an 3 on a scale of 0-10 at rest. The pain is worse with any activity and increases to an 8 out of 10 at its worst. Describes the pain as intermittent and sharp. She is not currently take any medication for it as she is unable to take Tylenol due to liver issues or NSAIDs as she is on Plavix. She notes that approximately 15 years ago she was told that she has a rotator cuff injury but states that she was told she was not a surgical candidate due to multiple herniated disks in her neck. She denies any new numbness/tingling, weakness or previous shoulder surgeries. Past Medical History: PAST MEDICAL HISTORY Diagnosis Date Arthritis Asthma CERVICAL DISC DISPLACMNT 02/03/2008 Chronic systolic heart failure (HCC) Coronary artery disease Degenerative disc disease Diabetes mellitus type 2, controlled (HCC) Herniated disc HLD (hyperlipidemia) HTN (hypertension) Ischemic cardiomyopathy Migraines BELA (obstructive sleep apnea) Pericardial effusion 04/13/2023 Thyroid nodule Unspecified essential hypertension Essential hypertension Past Surgical History: PAST SURGICAL HISTORY Procedure Laterality Date ADENOIDECTOMY PRIMARY <AGE 12 Adenoidectomy APPENDECTOMY W/ exploratory lap BACK SURGERY HX CHOLECYSTECTOMY REMV CATARACT EXTRACAP,INSERT LENS Bilateral 09/2023 TONSILLECTOMY PRIMARY/SECONDARY <AGE 12 Tonsillectomy VAGINAL HYSTERECTOMY UTERUS 250 GM/< Hysterectomy, vaginal Family History: FAMILY HISTORY Problem Relation Age of Onset Heart Mother Allergies Mother Arthritis Mother Asthma Mother Genitourinary () Mother bladder suspension in her 50's Hearing Loss Mother Hypertension Mother Lipids Mother Osteoporosis Mother Heart Father Cancer Father sarcoma Diabetes Father Hearing Loss Father Hypertension Father Lipids Father Stroke Father TIA'S Heart Maternal Grandmother Heart Maternal Grandfather Heart Paternal Grandmother Diabetes Paternal Grandmother other (Goiter) Paternal Grandmother Heart Paternal Grandfather Cancer Paternal Aunt I lost 11 aunts and uncles Cancer Paternal Uncle I lost 11 aunts and uncles Diabetes Paternal Aunt Diabetes Maternal Uncle Headache Daughter migraines Social History: Social History Tobacco Use Smoking status: Never Smokeless tobacco: Never Tobacco comments: Secondhand smoke exposure x 30 years (Father and 1st ) Substance Use Topics Alcohol use: Yes Comment: rare Drug use: No Medications: Current Outpatient Medications Medication Sig cycloSPORINE (RESTASIS) 0.05 % ophthalmic emulsion Use 1 Drop in both eyes two times a day. spironolactone (ALDACTONE) 25 mg tablet Take 0.5 tablets by mouth three times a week. sacubitril-valsartan (ENTRESTO) 24-26 mg tablet Take 1 tablet by mouth two times a day. nitroglycerin sublingual (NITROQUICK) 0.4 mg SL tablet Dissolve 1 tablet under the tongue every 5 minutes as needed for chest pain. bempedoic acid (NEXLETOL) 180 mg tablet Take 1 tablet (180 mg) by mouth once daily. TRESIBA FLEXTOUCH U-200 200 unit/mL (3 mL) injection Inject subcutaneously 70 units daily dapagliflozin propanediol (FARXIGA) 10 mg tablet Take 1 tablet by mouth daily with breakfast. clopidogrel (PLAVIX) 75 mg tablet Take 1 tablet by mouth once daily. blood sugar diagnostic (The [employer] GuidesTOUCH ULTRA TEST) test strip Use as instructed to test blood sugar 3 times daily. DX: E11.42, insulin dependent. diphenhydrAMINE (BENADRYL ALLERGY) 12.5 mg/5 mL liquid NOVOLOG FLEXPEN U-100 INSULIN 100 unit/mL (3 mL) INJECT SUBCUTANEOUSLY BREAKFAST 20 UNITS, LUNCH 20 UNITS , DINNER 20 UNITS PLUS SCALE UP TO 70 UNITS DAILY carvedilol (COREG) 3.125 mg tablet take 1 tablet by mouth twice a day with food insulin needles, DISPOSABLE, (BD INSULIN PEN NEEDLE UF) 31 gauge x 5/16 Use 4 pen needles daily Multivitamin capsule Take 1 capsule by mouth once daily. aspirin, enteric coated (ASPIRIN, ENTERIC COATED) 81 mg EC tablet Take 1 tablet by mouth once daily. Diclofenac Sodium 3 % gel Apply 0.5 g to affected area two times a day. tirzepatide (MOUNJARO) 2.5 mg/0.5 mL pen injector Inject 2.5 mg subcutaneously one time a week. X 4 wks then increase to 5 mg weekly. (Patient not taking: Reported on 10/23/2024) tirzepatide (MOUNJARO) 5 mg/0.5 mL pen injector Inject 5 mg subcutaneously one time a week. Patient should start on October 02, 2024. (Patient not taking: Reported on 10/23/2024) azithromycin (ZITHROMAX) 250 mg tablet TAKE 2 TABLETS BY MOUTH TODAY, THEN TAKE 1 TABLET DAILY FOR 4 DAYS DIRECTED (Patient not taking: Reported on 10/23/2024) No current facility-administered medications for this visit. Allergies: Animal Dander, Imitrex [Sumatriptan], Ozempic [Semaglutide], Propoxyphene, and Steroids [Betamethasone Dipropionate] ROS: General: negative for fatigue, malaise, weight loss/gain Musculoskeletal: see HPI Psych: no depression, anxiety OBJECTIVE: Ms. Kenny Valadez is a pleasant 69 year old in no apparent distress. Gen:There were no vitals taken for this visit. nl development, obese, no deformities ENT: Normocephalic, normal hearing, moist mucosa CV: Pulses:Radial= 2+ and symmetric, capillary refill < 2 secs, no peripheral edema/varicosities Skin: no rash, bruising or lesions. Good turgor. Psych: cooperative and appropriate, alert and oriented x 3, good mood and affect. Musculoskeletal: Right Shoulder Exam Tenderness Right shoulder tenderness location: anterolateral shoulder diffusely tender to palpation. Range of Motion Active abduction: 160 External rotation: 50 Forward flexion: 170 Internal rotation 0 degrees: Lumbar Muscle Strength Abduction: 5/5 Internal rotation: 5/5 External rotation: 5/5 Supraspinatus: 5/5 Subscapularis: 5/5 Biceps: 5/5 Tests Henao test: positive Cross arm: negative Impingement: negative Drop arm: negative Other Erythema: absent Scars: absent Left Shoulder Exam Left shoulder exam is normal. IMAGIN10/23/2024 4:38 PM - Radiology, [place] In Impression IMPRESSION: Degenerative changes Casting Machine Set Up Operator: MAJO Transcribe Date/Time: Oct 23 2024 4:35P Dictated by : FABIANA HIGUERA MD This examination was interpreted and the report reviewed and electronically signed by: FABIANA HIGUERA MD on Oct 23 2024 4:36PM EST Results-Findings * * *Final Report* * * DATE OF EXAM: Oct 23 2024 2:41PM GONZALEZ [id number] - XR SHLDR >/=3V AP/DHAVAL AP/OTHR RT / PROCEDURE REASON: [id number] * * * * Physician Interpretation * * * * PROCEDURE: Right shoulder INDICATION: Pain .right shoulder pain TECHNIQUE: XR SHLDR >/=3V AP/DHAVAL AP/OTHR RT COMPARISON: None FINDINGS: Mild glenohumeral and acromioclavicular joint osteoarthrosis with marginal spurring. Acromiohumeral interval is maintained. No fracture or dislocation. Degenerative change in the imaged cervical spine. ASSESSMENT: M25.511, G89.29 Chronic pain in right shoulder (primary encounter diagnosis) R22.32 Arm mass, left PLAN: Reviewed images taken today. Recommendation for chronic shoulder pain is a corticosteroid injection coupled with physical therapy. 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 Consult to PT placed today. Patient will follow-up in 6 to 8 weeks. If she is not better at that time may consider advanced imaging. FOLLOW UP INSTRUCTIONS: 6 to 8 weeks Lilia Obregon PA-C documented in this encounter [facility] 10-17-2024 Telephone encounter Note Attempted to reach patient voicemail box full. She is currently scheduled twice with ZULEMA Joseph on Wednesday10/23/2024 for two separate complaints. Will send [employer] message. [facility] 10-17-2024 Miscellaneous Notes Attempted to reach patient voicemail box full. She is currently scheduled twice with ZULEMA Joseph on Wednesday10/23/2024 for two separate complaints. Will send [employer] message. documented in this encounter [facility] 10-05-2024 Telephone encounter Note Pt is to increase to 5 mg weekly Mounjaro as discussed. Rx previously sent. [facility] 10-05-2024 Miscellaneous Notes Pt is to increase to 5 mg weekly Mounjaro as discussed. Rx previously sent. Prescription Refill Information The patient has been identified by name and date of : Yes Caregiver verified no other encounters exist for this prescription request: Yes Caregiver confirmed with patient/requestor that no other refills are due, in the near future, with this provider at this time: Yes The last office visit in the department: 09/07/2024 Does the patient have a future office visit with this provider/department: Yes. 12/21/2024 Requested Prescriptions Pending Prescriptions Disp Refills MOUNJARO 2.5 mg/0.5 mL pen injector [Pharmacy Med Name: MOUNJARO 2.5 MG/0.5 ML PEN] Sig: INJECT 2.5 MG SUBCUTANEOUSLY ONE TIME A WEEK. X 4 WKS THEN INCREASE TO 5 MG WEEKLY Tessy Lofton MA October 05, 2024 9:24 AM documented in this encounter [facility] 10-05-2024 Telephone encounter Note Prescription Refill Information The patient has been identified by name and date of : Yes Caregiver verified no other encounters exist for this prescription request: Yes Caregiver confirmed with patient/requestor that no other refills are due, in the near future, with this provider at this time: Yes The last office visit in the department: 09/07/2024 Does the patient have a future office visit with this provider/department: Yes. 12/21/2024 Requested Prescriptions Pending Prescriptions Disp Refills MOUNJARO 2.5 mg/0.5 mL pen injector [Pharmacy Med Name: MOUNJARO 2.5 MG/0.5 ML PEN] Sig: INJECT 2.5 MG SUBCUTANEOUSLY ONE TIME A WEEK. X 4 WKS THEN INCREASE TO 5 MG WEEKLY Tessy Lofton MA October 05, 2024 9:24 AM [facility] 09-19-2024 Note . MICRO - Microbiology PROCEDURE: Urine Culture [*1] SOURCE: Urine, Clean Catch BODY SITE: COLLECTED DATE/TIME: 09/18/2024 15:18 EST RECEIVED DATE/TIME: 09/18/2024 19:15 EST START DATE/TIME: 09/18/2024 19:15 EST FREE TEXT SOURCE: FINAL REPORTS Final Report [] Verified Date/Time/Personnel: 09/19/2024 14:33 EST 10,000 - 50,000 cfu/ml Mixed growth consistent with normal urogenital neeraj. Performing Locations *1: This test was performed at: [facility], [address] [place] [address], [facility] , [facility] 09-07-2024 Instructions Mary Kate Barber APRN.MANAGER NEWS - 09/07/2024 4:08 PM EDT Start Mounjaro 2.5 mg weekly x 4 wks then increase to 5 mg weekly. Continue tresiba 70 units daily. Continue farxiga Novolog: Breakfast 20 units Lunch 20 units Dinner 20 units Plus add novolog per scale below if needed: If Blood Glucose (mg/dL) is < 150 Give 0 units 151-200 Give 1 unit 201-250 Give 2 units 251-300 Give 3 units 301-350 Give 4 units >351 Give 5 units Follow up in 3-4 months Mary Kate Barber, MSN, SEWER MAINTENANCE SUPERVISOR, CITY DISPATCH SUPERVISOR-C, CDCES Endocrinology [facility] Medical Office [facility] [address] [place] [address], [address] [place], [place] [address] Fax: documented in this encounter [facility] 09-07-2024 History of Present illness Narrative Reason for Consultation: DM Type 2 Referring Physician: Luli Perdomo MD [address] [facility] [address] HISTORY OF PRESENT ILLNESS; Ms. Valadez is a 69 year old female presenting for follow up regarding DM Type 2. She was initially diagnosed with diabetes approx. 2000. She has been on insulin since at least age 55. 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 She eventually began Mounjaro then became ill with bronchitis and stopped it. She just recently resumed the 2.5 mg dose. Feels appetite is out of control. Been eating a lot of bagels. She is under the care of nephrology, Dr. Perdomo and cardiology Dr. Dodd. Rashel was cost prohibitive. At the last visit she wanted to try Ozempic which she did and resulted in severe constipation at the dose of 0.5 mg weekly and she discontinued it. She would like to try Mounjaro instead. Her current diabetes regimen is: Tresiba (u200 pen) 70 units daily at noon Farxiga 10 mg daily Mounjaro 2.5 mg weekly Novolog 20 units TID meals plus SS If Blood Glucose (mg/dL) is < 150 Give 0 units 151-200 Give 1 unit 201-250 Give 2 units 251-300 Give 3 units 301-350 Give 4 units >351 Give 5 units Previous DM medications: Glyburide actos janumet Glucotrol Metformin--stomach upset. Levemir--ineffective Trulicity --stomach issues. Ozempic--severe constipation Regarding symptoms of hyperglycemia, she is not experiencing polyuria and polydipsia. Exercise:ADL's Kenny is checking her blood glucose 4 times per day She did bring a logbook today for review: Fastin's tresiba and novolog 10:30 AM 220 today; may take extra 5 units novolog if over 200 1:30: lunch time; 200's acS (5-7:30 dinner) novolog 20 units but may forget or not eat HS Hypoglycemia frequency: occasionally Hypoglycemia awareness: Yes Overall, the patient has no acute complaints at this time. HTN: Intolerant to KALIE ARB--Entresto HLD: Not currently on a statin. PAST MEDICAL HISTORY Diagnosis Date Arthritis Asthma CERVICAL DISC DISPLACMNT 02/03/2008 Chronic systolic heart failure (HCC) Coronary artery disease Degenerative disc disease Diabetes mellitus type 2, controlled (HCC) Herniated disc HLD (hyperlipidemia) HTN (hypertension) Ischemic cardiomyopathy Migraines BELA (obstructive sleep apnea) Pericardial effusion 04/13/2023 Thyroid nodule Unspecified essential hypertension Essential hypertension PAST SURGICAL HISTORY Procedure Laterality Date ADENOIDECTOMY PRIMARY <AGE 12 Adenoidectomy APPENDECTOMY W/ exploratory lap BACK SURGERY HX CHOLECYSTECTOMY REMV CATARACT EXTRACAP,INSERT LENS Bilateral 09/2023 TONSILLECTOMY PRIMARY/SECONDARY <AGE 12 Tonsillectomy VAGINAL HYSTERECTOMY UTERUS 250 GM/< Hysterectomy, vaginal FAMILY HISTORY Problem Relation Age of Onset Heart Mother Allergies Mother Arthritis Mother Asthma Mother Genitourinary () Mother bladder suspension in her 50's Hearing Loss Mother Hypertension Mother Lipids Mother Osteoporosis Mother Heart Father Cancer Father sarcoma Diabetes Father Hearing Loss Father Hypertension Father Lipids Father Stroke Father TIA'S Heart Maternal Grandmother Heart Maternal Grandfather Heart Paternal Grandmother Diabetes Paternal Grandmother other (Goiter) Paternal Grandmother Heart Paternal Grandfather Cancer Paternal Aunt I lost 11 aunts and uncles Cancer Paternal Uncle I lost 11 aunts and uncles Diabetes Paternal Aunt Diabetes Maternal Uncle Headache Daughter migraines Social History Tobacco Use Smoking status: Never Smokeless tobacco: Never Tobacco comments: Secondhand smoke exposure x 30 years (Father and 1st ) Substance Use Topics Alcohol use: Yes Comment: rare Drug use: No Current Outpatient Medications Medication Sig Dispense Refill azithromycin (ZITHROMAX) 250 mg tablet TAKE 2 TABLETS BY MOUTH TODAY, THEN TAKE 1 TABLET DAILY FOR 4 DAYS DIRECTED spironolactone (ALDACTONE) 25 mg tablet Take 0.5 tablets by mouth three times a week. RESTASIS 0.05 % ophthalmic emulsion USE 1 DROP IN BOTH EYES TWO TIMES A DAY. 180 Each 0 sacubitril-valsartan (ENTRESTO) 24-26 mg tablet Take 1 tablet by mouth two times a day. 180 tablet 1 bempedoic acid (NEXLETOL) 180 mg tablet Take 1 tablet (180 mg) by mouth once daily. 90 tablet 3 TRESIBA FLEXTOUCH U-200 200 unit/mL (3 mL) injection Inject subcutaneously 70 units daily 12 mL 11 tirzepatide (MOUNJARO) 2.5 mg/0.5 mL pen injector Inject 2.5 mg subcutaneously one time a week. X 4 wks then increase to 5 mg weekly. 2 mL 0 dapagliflozin propanediol (FARXIGA) 10 mg tablet Take 1 tablet by mouth daily with breakfast. 90 tablet 3 clopidogrel (PLAVIX) 75 mg tablet Take 1 tablet by mouth once daily. 90 tablet 3 blood sugar diagnostic (The [employer] GuidesTOUCH ULTRA TEST) test strip Use as instructed to test blood sugar 3 times daily. DX: E11.42, insulin dependent. 300 Strip 3 diphenhydrAMINE (BENADRYL ALLERGY) 12.5 mg/5 mL liquid NOVOLOG FLEXPEN U-100 INSULIN 100 unit/mL (3 mL) INJECT SUBCUTANEOUSLY BREAKFAST 20 UNITS, LUNCH 20 UNITS , DINNER 20 UNITS PLUS SCALE UP TO 70 UNITS DAILY 30 mL 11 carvedilol (COREG) 3.125 mg tablet take 1 tablet by mouth twice a day with food 180 tablet 3 insulin needles, DISPOSABLE, (BD INSULIN PEN NEEDLE UF) 31 gauge x 5/16 Use 4 pen needles daily 400 Each 3 Multivitamin capsule Take 1 capsule by mouth once daily. aspirin, enteric coated (ASPIRIN, ENTERIC COATED) 81 mg EC tablet Take 1 tablet by mouth once daily. nitroglycerin sublingual (NITROQUICK) 0.4 mg SL tablet Dissolve 1 tablet under the tongue every 5 minutes as needed for chest pain. (Patient not taking: Reported on 08/23/2024) 25 tablet 0 tirzepatide (MOUNJARO) 5 mg/0.5 mL pen injector Inject 5 mg subcutaneously one time a week. Patient should start on July 04, 2024. (Patient not taking: Reported on 07/24/2024) 2 mL 5 fexofenadine (ANGELA) 180 mg tablet Take 180 mg by mouth once daily. No current facility-administered medications for this visit. Allergies As of Date: 09/07/2024 Allergen Noted Reaction ANIMAL DANDER 04/08/2023 Itching IMITREX [SUMATRIPTAN] 04/07/2023 Other: See Comments OZEMPIC [SEMAGLUTIDE] 06/07/2024 Intolerance PROPOXYPHENE 02/23/2024 Other: See Comments STEROIDS [BETAMETHASONE DIPROPION*01/31/2008 Fully Assessed 09/07/2024 REVIEW OF SYSTEMS: Answers submitted by the patient for this visit: Core Review of Systems (Submitted on 09/07/2024) Fever : No Night sweats: Yes Recent unintentional weight change: Yes Nasal Congestion: No Hearing Loss: No Vision Disturbance: Yes A cough: Yes Difficulty Breathing?: Yes Chest pain: No Irregular heartbeat: No Leg Swelling: Yes Nausea: No Diarrhea: No Black tarry stools: No Difficulty Urinating?: Yes Awaken at Night More Than Once to Urinate?: No Joint pain or stiffness: Yes Muscle aches: Yes Leg or Foot Discomfort at Night?: Yes A rash: No Dizziness: No Headaches: Yes Memory Loss: No Seizures: No PHYSICAL EXAM: BP 119/80 Pulse 89 Ht 165.1 cm (5' 5) Wt 88.5 kg (195 lb 1.7 oz) SpO2 97% BMI 32.47 kg/m2 Physical Exam Constitutional: Appearance: Normal appearance. She is obese. Cardiovascular: Rate and Rhythm: Normal rate and regular rhythm. Pulmonary: Effort: Pulmonary effort is normal. Breath sounds: Normal breath sounds. Skin: General: Skin is warm and dry. Neurological: Mental Status: She is alert and oriented to person, place, and time. Psychiatric: Mood and Affect: Mood normal. Behavior: Behavior normal. DATA: Creatinine Date Value Ref Range Status 09/28/2023 0.97 (H) 0.58 - 0.96 mg/dL Final Hemoglobin A1C (%) Date Value 04/15/2012 10.8 Hemoglobin A1C (POCT) (%) Date Value 06/07/2024 8.1 ) No components found for: URINEALBUMIN Cholesterol, Total (mg/dL) Date Value 01/22/2024 159 HDL Cholesterol (mg/dL) Date Value 01/22/2024 29 LDL Cholesterol (mg/dL) Date Value 01/22/2024 90 LDL Cholesterol, Nonfasting (mg/dL) Date Value 04/07/2023 120 Triglyceride (mg/dL) Date Value 01/22/2024 199 IMPRESSION: Ms. Valadez is a 69 year old female here for evaluation of DM Type 2 complicated by hypertension, hyperlipidemia, CKD, peripheral neuropathy and microalbuminuria RECOMMENDATIONS (E11.29, R80.9, Z79.4) Type 2 diabetes mellitus with diabetic microalbuminuria, with long-term current use of insulin ([facility]) (primary encounter diagnosis) Comment: Glycemic control is above goal. She just resumed Mounjaro and only had 1 dose so far. Will wait to make any insulin changes. Urine protein is stable. She is on SGLT2 and ARB Plan: HEMOGLOBIN A1C (POC), tirzepatide (MOUNJARO) 2.5 mg/0.5 mL pen injector, tirzepatide (MOUNJARO) 5 mg/0.5 mL pen injector Start Mounjaro 2.5 mg weekly x 4 wks then increase to 5 mg weekly. Continue tresiba 70 units daily. Continue farxiga Novolog: Breakfast 20 units Lunch 20 units Dinner 20 units Plus add novolog per scale below if needed: If Blood Glucose (mg/dL) is < 150 Give 0 units 151-200 Give 1 unit 201-250 Give 2 units 251-300 Give 3 units 301-350 Give 4 units >351 Give 5 units Follow up in 3-4 months (E11.42, Z79.4) Type 2 diabetes mellitus with diabetic polyneuropathy, with long-term current use of insulin ([facility]) Comment: Glycemic control is above goal. She just resumed Mounjaro and only had 1 dose so far. Will wait to make any insulin changes. Neuropathy is monitored and stable. Plan: HEMOGLOBIN A1C (POC), tirzepatide (MOUNJARO) 2.5 mg/0.5 mL pen injector, tirzepatide (MOUNJARO) 5 mg/0.5 mL pen injector Start Mounjaro 2.5 mg weekly x 4 wks then increase to 5 mg weekly. Continue tresiba 70 units daily. Continue farxiga Novolog: Breakfast 20 units Lunch 20 units Dinner 20 units Plus add novolog per scale below if needed: If Blood Glucose (mg/dL) is < 150 Give 0 units 151-200 Give 1 unit 201-250 Give 2 units 251-300 Give 3 units 301-350 Give 4 units >351 Give 5 units Follow up in 3-4 months (E11.21, Z79.4) Type 2 diabetes mellitus with diabetic nephropathy, with long-term current use of insulin (HCC) Comment: Glycemic control is above goal. She just resumed Mounjaro and only had 1 dose so far. Will wait to make any insulin changes. Renal disease is monitored and stable Plan: HEMOGLOBIN A1C (POC), tirzepatide (MOUNJARO) 2.5 mg/0.5 mL pen injector, tirzepatide (MOUNJARO) 5 mg/0.5 mL pen injector Start Mounjaro 2.5 mg weekly x 4 wks then increase to 5 mg weekly. Continue tresiba 70 units daily. Continue farxiga Novolog: Breakfast 20 units Lunch 20 units Dinner 20 units Plus add novolog per scale below if needed: If Blood Glucose (mg/dL) is < 150 Give 0 units 151-200 Give 1 unit 201-250 Give 2 units 251-300 Give 3 units 301-350 Give 4 units >351 Give 5 units Follow up in 3-4 months (E11.649) Hypoglycemia due to type 2 diabetes mellitus (HCC) Comment/Plan: CGM cost prohibitive (E04.1) Nontoxic single thyroid nodule Comment/Plan: single subcentimeter nodule of 0.8 cm (8mm) She has been euthyroid. Managed per PCP (I10) Essential hypertension Comment/Plan: Managed per PCP/cardiology (E78.2) Mixed hyperlipidemia Comment/Plan: s/p NSTEMI with stent; Managed per PCP/cardiology (E66.9) Obesity, Class I, BMI 30-34.9 Comment: Body mass index is 32.47 kg/m . Plan: Encouraged increase dietary and exercise efforts as able Medical Decision Making: Level: 4 - Moderate Mary Kate Barber, MSN, SEWER MAINTENANCE SUPERVISOR, CITY DISPATCH SUPERVISOR-C, CDCES Endocrinology [facility] Medical Office [facility]/[address], [address] [place] [address] Fax: documented in this encounter [facility] 09-07-2024 Note HNO ID: [id number] Author: MARY KATE BARBER APRN.MANAGER NEWS Service: ? Author Type: Nurse Practitioner Type: Progress Notes Filed: 09/07/2024 16:18 Note Text: Reason for Consultation: DM Type 2 Referring Physician: Luli Perdomo MD [address] [facility] [address] HISTORY OF PRESENT ILLNESS; Ms. Valadez is a 69 year old female presenting for follow up regarding DM Type 2. She was initially diagnosed with diabetes approx. 2000. She has been on insulin since at least age 55. 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 She eventually began Mounjaro then became ill with bronchitis and stopped it. She just recently resumed the 2.5 mg dose. Feels appetite is out of control. Been eating a lot of bagels. She is under the care of nephrology, Dr. Perdomo and cardiology Dr. oDdd. Rashel was cost prohibitive. At the last visit she wanted to try Ozempic which she did and resulted in severe constipation at the dose of 0.5 mg weekly and she discontinued it. She would like to try Mounjaro instead. Her current diabetes regimen is: Tresiba (u200 pen) 70 units daily at noon Farxiga 10 mg daily Mounjaro 2.5 mg weekly Novolog 20 units TID meals plus SS If Blood Glucose (mg/dL) is < 150 Give 0 units 151-200 Give 1 unit 201-250 Give 2 units 251-300 Give 3 units 301-350 Give 4 units >351 Give 5 units Previous DM medications: Glyburide actos janumet Glucotrol Metformin--stomach upset. Levemir--ineffective Trulicity --stomach issues. Ozempic--severe constipation Regarding symptoms of hyperglycemia, she is not experiencing polyuria and polydipsia. Exercise:GURDEEP's Kenny is checking her blood glucose 4 times per day She did bring a logbook today for review: Fastin's tresiba and novolog 10:30 AM 220 today; may take extra 5 units novolog if over 200 1:30: lunch time; 200's acS (5-7:30 dinner) novolog 20 units but may forget or not eat HS Hypoglycemia frequency: occasionally Hypoglycemia awareness: Yes Overall, the patient has no acute complaints at this time. HTN: Intolerant to KALIE ARB--Entresto HLD: Not currently on a statin. PAST MEDICAL HISTORY Diagnosis Date Arthritis Asthma CERVICAL DISC DISPLACMNT 02/03/2008 Chronic systolic heart failure (HCC) Coronary artery disease Degenerative disc disease Diabetes mellitus type 2, controlled (HCC) Herniated disc HLD (hyperlipidemia) HTN (hypertension) Ischemic cardiomyopathy Migraines BELA (obstructive sleep apnea) Pericardial effusion 04/13/2023 Thyroid nodule Unspecified essential hypertension Essential hypertension PAST SURGICAL HISTORY Procedure Laterality Date ADENOIDECTOMY PRIMARY Adenoidectomy APPENDECTOMY W/ exploratory lap BACK SURGERY HX CHOLECYSTECTOMY REMV CATARACT EXTRACAP,INSERT LENS Bilateral 09/2023 TONSILLECTOMY PRIMARY/SECONDARY Tonsillectomy VAGINAL HYSTERECTOMY UTERUS 250 GM/< Hysterectomy, vaginal FAMILY HISTORY Problem Relation Age of Onset Heart Mother Allergies Mother Arthritis Mother Asthma Mother Genitourinary () Mother bladder suspension in her 50's Hearing Loss Mother Hypertension Mother Lipids Mother Osteoporosis Mother Heart Father Cancer Father sarcoma Diabetes Father Hearing Loss Father Hypertension Father Lipids Father Stroke Father TIA'S Heart Maternal Grandmother Heart Maternal Grandfather Heart Paternal Grandmother Diabetes Paternal Grandmother other (Goiter) Paternal Grandmother Heart Paternal Grandfather Cancer Paternal Aunt I lost 11 aunts and uncles Cancer Paternal Uncle I lost 11 aunts and uncles Diabetes Paternal Aunt Diabetes Maternal Uncle Headache Daughter migraines Social History Tobacco Use Smoking status: Never Smokeless tobacco: Never Tobacco comments: Secondhand smoke exposure x 30 years (Father and 1st ) Substance Use Topics Alcohol use: Yes Comment: rare Drug use: No Current Outpatient Medications Medication Sig Dispense Refill azithromycin (ZITHROMAX) 250 mg tablet TAKE 2 TABLETS BY MOUTH TODAY, THEN TAKE 1 TABLET DAILY FOR 4 DAYS DIRECTED spironolactone (ALDACTONE) 25 mg tablet Take 0.5 tablets by mouth three times a week. RESTASIS 0.05 % ophthalmic emulsion USE 1 DROP IN BOTH EYES TWO TIMES A DAY. 180 Each 0 sacubitril-valsartan (ENTRESTO) 24-26 mg tablet Take 1 tablet by mouth two times a day. 180 tablet 1 bempedoic acid (NEXLETOL) 180 mg tablet Take 1 tablet (180 mg) by mouth once daily. 90 tablet 3 TRESIBA FLEXTOUCH U-200 200 unit/mL (3 mL) injection Inject subcutaneously 70 units daily 12 mL 11 tirzepatide (MOUNJARO) 2.5 mg/0.5 mL pen injector In (more content not included)... [facility] 08-25-2024 Telephone encounter Note Patient has taken the 4th dose of Mounjaro 2.5 mg today. She is asking for refills... discussed she is to increase to the next dose if she is tolerating well. She reports that she is tolerating well. Recommended she increase as prescribed to the 5 mg dose next week. She has an appointment on 09/07/24, she can report how she is doing at that time. Closed. [facility] 08-25-2024 Miscellaneous Notes Patient has taken the 4th dose of Mounjaro 2.5 mg today. She is asking for refills... discussed she is to increase to the next dose if she is tolerating well. She reports that she is tolerating well. Recommended she increase as prescribed to the 5 mg dose next week. She has an appointment on 09/07/24, she can report how she is doing at that time. Closed. documented in this encounter [facility] 08-23-2024 Note HNO ID: [id number] Author: MESFIN PERRIN MD Service: ? Author Type: Physician Type: Progress Notes Filed: 08/23/2024 16:52 Note Text: Assessment and Plan 1. Dry eye syndrome of both eyes 2. Pseudophakia -main complaint is blurry vision (clouds in vision) since cataract surgery (multifocal intraocular lens) [Sep 2023] -Subconjunctival hemorrhage left eye after cataract surgery - now with pain left eye (01/22) -also tearing Dry Eye Treatment: Artificial tears Effective?: Partially Cyclosporine Effective?: No Cold compresses help 3. Other chronic allergic conjunctivitis of both eyes -cold compresses help 4. Type 2 diabetes mellitus with both eyes affected by mild nonproliferative retinopathy without macular edema, with long-term current use of insulin (HCC) -few microaneurysms right eye 5. Posterior vitreous detachment (PVD) both eyes 6. Floaters both eyes 7. Lattice left eye -contributing to symptoms? -Retina precautions reviewed. Return to clinic as soon as possible if increased floaters, flashes, or shadows. Plan: -main complaint is clouds over vision both eyes after multifocal intraocular lens both eyes. Intraocular lens-related vs floaters vs diabetes related. Less likely to be dry eye-related as drops of little help -Continue blood sugar and blood pressure control -pataday once a day both eyes -restasis twice a day both eyes -encouraged to try glasses for distance - trial frame helped in clinic! Would rather not use glasses -retina eval for input? Otherwise Dr. Jacobs for glasses - Photorefractive keratectomy (PRK)? I have confirmed and edited as necessary the relevant ophthalmic history, ROS, and the neuro exam findings as obtained by others. I have seen and examined Kenny Valadez. I have discussed the case and the management of this patient's care with the Resident/Fellow, if applicable. I also have reviewed and agree with the assessment and plan as stated above and agree with all of its relevant components. Mesfin Perrin MD [facility] 08-23-2024 History of Present illness Narrative Assessment and Plan 1. Dry eye syndrome of both eyes 2. Pseudophakia -main complaint is blurry vision (clouds in vision) since cataract surgery (multifocal intraocular lens) [Sep 2023] -Subconjunctival hemorrhage left eye after cataract surgery - now with pain left eye (01/22) -also tearing Dry Eye Treatment: Artificial tears Effective?: Partially Cyclosporine Effective?: No Cold compresses help 3. Other chronic allergic conjunctivitis of both eyes -cold compresses help 4. Type 2 diabetes mellitus with both eyes affected by mild nonproliferative retinopathy without macular edema, with long-term current use of insulin (HCC) -few microaneurysms right eye 5. Posterior vitreous detachment (PVD) both eyes 6. Floaters both eyes 7. Lattice left eye -contributing to symptoms? -Retina precautions reviewed. Return to clinic as soon as possible if increased floaters, flashes, or shadows. Plan: -main complaint is clouds over vision both eyes after multifocal intraocular lens both eyes. Intraocular lens-related vs floaters vs diabetes related. Less likely to be dry eye-related as drops of little help -Continue blood sugar and blood pressure control -pataday once a day both eyes -restasis twice a day both eyes -encouraged to try glasses for distance - trial frame helped in clinic! Would rather not use glasses -retina eval for input? Otherwise Dr. Jacobs for glasses - Photorefractive keratectomy (PRK)? I have confirmed and edited as necessary the relevant ophthalmic history, ROS, and the neuro exam findings as obtained by others. I have seen and examined Kenny Valadez. I have discussed the case and the management of this patient's care with the Resident/Fellow, if applicable. I also have reviewed and agree with the assessment and plan as stated above and agree with all of its relevant components. Mesfin Perrin MD documented in this encounter [facility] 07-24-2024 Instructions Jody Sparks APRN.[facility] - 07/24/2024 2:09 PM EDT 1. Reduce Spironolactone to 12.5 mg three times per week. Please call the office if you are unable to tolerate reduction. 2. Weigh yourself daily. Call me if your weight increases by 3-4 pounds in a 1-4 day period of time. 3. Continue low salt (2000 mg per day) diet. 4. Be as active as you are able. If you get tired, just stop and rest for a while. 5. Come back and see me on October 02, 2024 at 1:30 pm. If you have any question or concern, you can call me at [phone]. documented in this encounter [facility] 07-24-2024 History of Present illness Narrative Images from the original note were not included. [facility] OUTPATIENT VISIT DATE July 24, 2024 OUTPATIENT VISIT TYPE ESTABLISHED PRIMARY CARE PHYSICIAN: David Wynn DO CHIEF COMPLAINT: Patient presents with: Shortness of Breath HISTORY OF PRESENT ILLNESS: Kenny Valadez is a 69 year old female who presents today for a follow-up visit in the Heart Failure Clinic. Pt was last seen on 06/07/2024. At that visit, patient reported that she has had gained weight due to caloric intake and inactivity. She reported intermittent chest discomfort. She had not taken SL NTG for this issue. She was euvolemic on examination and no changes were made to her medications. Pt did follow up with Dr. Dodd on 06/12/2024. She reported similar symptoms as visit on 06/07. Echo and labs were ordered. Echo was done (see results below) and was unchanged from previous echo. Today, patient reports that she had been having spasms in her R shoulder for some time. She states that the spasms were what she experienced when she had STEMI. She states that she stopped Spironolactone because she felt that it was causing her to be dehydrated and caused shoulder spasms. She states that once she stopped taking the medication, the shoulder spasms stopped. She has not taken any SL NTG. She states that she is concerned that she had Echo done and there has not been an improvement in her EF. She denies CP, PND, orthopnea, or presence of edema. She notes that she is SOB with exertion. She attributes this to her recent weight gain that was from caloric intake. She states that she has been trying to lose weight to see if this would help with her feelings of SOB. She is following a low sodium diet to the best of her ability. Weights at home have been stable with no sharp increases or decreases. Patient has had 0 hospitalizations and/or emergency room encounters in the last 12 months. SOB: Yes: with exertion Fatigue: Yes: increased Orthopnea:No PND: No Edema:No Chest Pain:Yes: R shoulder spasms occasionally. She reports that they will resolve with massage. Palpitations:No Dizziness/Lightheadedness:No Syncope:No Appetite: good Diet:low salt (2000 mg) Fluid Restriction: No Regular Exercise: No PAST CARDIAC HISTORY: Heart failure: systolic Ischemic, coronary artery disease and s/p PCI to LAD 04/08/2023. Her cardiac history is also significant for T2DM, HTN, hyperlipidemia, CAD, ICM. Device: NA. PAST MEDICAL HISTORY No date: Arthritis No date: Asthma 02/03/2008: CERVICAL DISC DISPLACMNT No date: Chronic systolic heart failure (HCC) No date: Coronary artery disease No date: Degenerative disc disease No date: Diabetes mellitus type 2, controlled (HCC) No date: Herniated disc No date: HLD (hyperlipidemia) No date: HTN (hypertension) No date: Ischemic cardiomyopathy No date: Migraines No date: BELA (obstructive sleep apnea) 04/13/2023: Pericardial effusion No date: Thyroid nodule No date: Unspecified essential hypertension Comment: Essential hypertension PAST SURGICAL HISTORY No date: ADENOIDECTOMY PRIMARY <AGE 12 Comment: Adenoidectomy No date: APPENDECTOMY Comment: W/ exploratory lap No date: BACK SURGERY HX No date: CHOLECYSTECTOMY 09/2023: REMV CATARACT EXTRACAP,INSERT LENS; Bilateral No date: TONSILLECTOMY PRIMARY/SECONDARY <AGE 12 Comment: Tonsillectomy No date: VAGINAL HYSTERECTOMY UTERUS 250 GM/< Comment: Hysterectomy, vaginal Social History Tobacco Use Smoking status: Never Smokeless tobacco: Never Tobacco comments: Secondhand smoke exposure x 30 years (Father and 1st ) Substance Use Topics Alcohol use: Yes Comment: rare Drug use: No Family History Problem Relation Age of Onset Heart Mother Allergies Mother Arthritis Mother Asthma Mother Genitourinary () Mother bladder suspension in her 50's Hearing Loss Mother Hypertension Mother Lipids Mother Osteoporosis Mother Heart Father Cancer Father sarcoma Diabetes Father Hearing Loss Father Hypertension Father Lipids Father Stroke Father TIA'S Heart Maternal Grandmother Heart Maternal Grandfather Heart Paternal Grandmother Diabetes Paternal Grandmother other (Goiter) Paternal Grandmother Heart Paternal Grandfather Cancer Paternal Aunt I lost 11 aunts and uncles Cancer Paternal Uncle I lost 11 aunts and uncles Diabetes Paternal Aunt Diabetes Maternal Uncle Headache Daughter migraines ALLERGIES Allergen Reactions Animal Dander Itching Itchy watery eyes, sneezing Imitrex [Sumatripta* Other: See Comments Ozempic [Semaglutid* Intolerance Constipation Propoxyphene Other: See Comments Steroids [Betametha* CURRENT MEDICATIONS: Current Outpatient Medications Medication Sig Dispense Refill RESTASIS 0.05 % ophthalmic emulsion USE 1 DROP IN BOTH EYES TWO TIMES A DAY. 180 Each 0 sacubitril-valsartan (ENTRESTO) 24-26 mg tablet Take 1 tablet by mouth two times a day. 180 tablet 1 nitroglycerin sublingual (NITROQUICK) 0.4 mg SL tablet Dissolve 1 tablet under the tongue every 5 minutes as needed for chest pain. 25 tablet 0 bempedoic acid (NEXLETOL) 180 mg tablet Take 1 tablet (180 mg) by mouth once daily. 90 tablet 3 TRESIBA FLEXTOUCH U-200 200 unit/mL (3 mL) injection Inject subcutaneously 70 units daily 12 mL 11 dapagliflozin propanediol (FARXIGA) 10 mg tablet Take 1 tablet by mouth daily with breakfast. 90 tablet 3 clopidogrel (PLAVIX) 75 mg tablet Take 1 tablet by mouth once daily. 90 tablet 3 ketotifen fumarate (ZADITOR) 0.025 % (0.035 %) ophthalmic solution USE 1 DROP IN BOTH EYES TWO TIMES A DAY. 15 mL 1 blood sugar diagnostic (The [employer] GuidesTOUCH ULTRA TEST) test strip Use as instructed to test blood sugar 3 times daily. DX: E11.42, insulin dependent. 300 Strip 3 diphenhydrAMINE (BENADRYL ALLERGY) 12.5 mg/5 mL liquid NOVOLOG FLEXPEN U-100 INSULIN 100 unit/mL (3 mL) INJECT SUBCUTANEOUSLY BREAKFAST 20 UNITS, LUNCH 20 UNITS , DINNER 20 UNITS PLUS SCALE UP TO 70 UNITS DAILY 30 mL 11 carvedilol (COREG) 3.125 mg tablet take 1 tablet by mouth twice a day with food 180 tablet 3 insulin needles, DISPOSABLE, (BD INSULIN PEN NEEDLE UF) 31 gauge x 5/16 Use 4 pen needles daily 400 Each 3 Multivitamin capsule Take 1 capsule by mouth once daily. fexofenadine (ANGELA) 180 mg tablet Take 180 mg by mouth once daily. aspirin, enteric coated (ASPIRIN, ENTERIC COATED) 81 mg EC tablet Take 1 tablet by mouth once daily. spironolactone (ALDACTONE) 25 mg tablet Take 0.5 tablets by mouth three times a week. tirzepatide (MOUNJARO) 2.5 mg/0.5 mL pen injector Inject 2.5 mg subcutaneously one time a week. X 4 wks then increase to 5 mg weekly. (Patient not taking: Reported on 07/24/2024) 2 mL 0 tirzepatide (MOUNJARO) 5 mg/0.5 mL pen injector Inject 5 mg subcutaneously one time a week. Patient should start on July 04, 2024. (Patient not taking: Reported on 07/24/2024) 2 mL 5 Current Facility-Administered Medications Medication Dose Route Frequency Provider Last Rate Last Admin perflutren lipid microspheres 1.3 mL in NaCl (PF) 0.9% 10 mL injection (DEFINITY) INTRAVENOUS DIRECTED PRN Yared Dodd MD sodium chloride 0.9 % (flush) 10 mL (BD POSIFLUSH) 10 mL INTRAVENOUS DIRECTED PRN Yared Dodd MD Functional Assessment: Does the patient have any concerns about safety in the home?No Does the patient have difficulty performing or completing routine daily living activities?No Is the patient at risk for falls?No REVIEW OF SYSTEMS: GENERAL: Negative for: Weight loss or gain, Fever or Chills, Weakness and Sleep difficulties. HEENT: Positive for:Impaired Vision and Glasses , Negative for:Headache, Hearing Impairment, Ringing in Ears, Nosebleeds, Poor Dental Care, Bleeding Gums, and Dentures NECK: Positive for: Pain and Stiffness , Negative for:Swelling RESPIRATORY: Positive for: Cough and Shortness of breath , Negative for:Blood in Sputum, Wheezing, and Apnea GASTROINTESTINAL: Negative for: Trouble swallowing, Heartburn, Change in bowel habits, Blood in stool, Dark black stools MUSCULOSKELETAL: Positive for: Muscle or joint pain , Negative for: Stiffness and Joint swelling NEUROLOGIC/PSYCHIATRIC: Negative for: Weakness, Paralysis, Numbness, Tingling, Tremor, Nervousness or anxiety, Depressed mood, Memory loss SKIN: Negative for: Rash, Itching HEMATOLOGICAL/LYMPHATIC: Negative for: Easy bruising, Easy bleeding PHYSICAL EXAMINATION: BP 126/74 Pulse 74 Wt 87.7 kg (193 lb 5.5 oz) SpO2 97% BMI 30.74 kg/m General: no distress, overweight, ambulating independently, alert and oriented x 3, pleasant and conversational during examination. Skin: No clubbing, no cyanosis. Neck: Neck veins are not distended Lungs: Chest clear to auscultation Heart: Rhythm: regular rate and rhythm, Rate: normal, S1: normal intensity, S2: normal intensity, S3: No, S4: No, no murmur Abdomen: Palpation normal, Bowel Sounds: Present Extremities: Normal exam of the extremities, no edema CARDIOVASCULAR MEDICINE TESTING: No Cardiovascular testing perfomed today. I have personally reviewed the Laboratory Testing and Echocardiogram. ECHO 06/26/2024: CONCLUSIONS: - Technically difficult exam due to body habitus. - Exam indication: CAD - The left ventricle is mildly dilated. Left ventricular systolic function is moderately decreased. EF = 33 5% (2D 4-ch.) Grade I left ventricular diastolic dysfunction. The apex is akinetic, possibly aneurysmal. Consider repeat limited ECHO with contrast to assess for thrombus. - The right ventricle is normal in size. - Right ventricular systolic function is normal. - Ascending aorta measures 3.3cm. - Exam was compared with the prior CC echocardiographic exam performed on 06/21/2023. Prior LVEF was 33% No new or recent labs to review. IMPRESSION: NYHA Functional Class: II Stage: C heart failure Mrs. Valadez is a 69 year old female who presents for follow up for chronic systolic heart failure. Pt reports that she has been having shoulder spasms with use of Spironolactone. She stopped medications as she felt she was getting dehydrated and this was causing spasms. She notes improvement since stopping. She also has difficulty getting restroom breaks at her job and it makes it difficult for her to take Spironolactone. She reports SOB with exertion and feels it is related to weight gain from caloric intake. Discussed results of her echo with her and she states understanding. Also, discussed Spironolactone and benefits to HF. Will reduce Spironolactone 12.5 mg PO to three times weekly. Discussed should she have side effects, she can call the office to report. She will follow up in HF Clinic in September or sooner PRN. PLAN AND RECOMMENDATIONS: 1. Chronic systolic congestive heart failure (HCC) - ICD9: 428.22, 428.0, ICD10: I50.22 (primary diagnosis) - Euvolemic on examination. EF-33% - Reduce Spironolactone to 12.5 mg three times weekly. - Continue Coreg - Continue Entresto - Continue Farxiga - Daily weights. Call if weight increases by 3-4 lbs in 1-4 days period of time. - 2g low sodium diet - Activity as tolerated. Rest breaks as needed. - Follow up in HF Clinic in September or sooner PRN. 2. Cardiomyopathy, ischemic - ICD9: 414.8, ICD10: I25.5 - Stable at this time. - Continue current medications at current doses. 3. Primary hypertension - ICD9: 401.9, ICD10: I10 - Controlled - Continue current medications - Recommend home blood pressure monitoring, to bring results to next visit - Encouraged sodium restriction, DASH or Mediterranean diet - Recommend regular aerobic exercise Followup appointment with Dr. Dodd in November 2024. COUNSELING: We discussed the following non-pharmacological measures during this visit: Smoking and alcohol abstinence/cessation, if applicable Dietary and medication compliance Monitoring daily weights and blood pressures Exercise regimen When to call our office Heart Failure Education Booklet: given previously. Discussed red flags and when to call MD/CITY DISPATCH SUPERVISOR or go to ED. Medications reconciled at end of visit: yes I spent 46 minutes in this visit, with more than 50% of the time devoted to patient counseling. A portion of documentation from previous visit of 06/07/2024 was copied and pasted, documentation has been reviewed and edited as necessary for today's visit. SIGNATURE: Jody Sparks APRN.CNP PATIENT NAME: Kenny Valadez DATE: July 24, 2024 TIME: 1:32 PM documented in this encounter [facility] 07-24-2024 Note HNO ID: [id number] Author: JODY SPARKS APRN.CNP Service: ? Author Type: Nurse Practitioner Type: Progress Notes Filed: 07/24/2024 15:01 Note Text: [facility] OUTPATIENT VISIT DATE July 24, 2024 OUTPATIENT VISIT TYPE ESTABLISHED PRIMARY CARE PHYSICIAN: David Wynn DO CHIEF COMPLAINT: Patient presents with: Shortness of Breath HISTORY OF PRESENT ILLNESS: Kenny Valadez is a 69 year old female who presents today for a follow-up visit in the Heart Failure Clinic. Pt was last seen on 06/07/2024. At that visit, patient reported that she has had gained weight due to caloric intake and inactivity. She reported intermittent chest discomfort. She had not taken SL NTG for this issue. She was euvolemic on examination and no changes were made to her medications. Pt did follow up with Dr. Dodd on 06/12/2024. She reported similar symptoms as visit on 06/07. Echo and labs were ordered. Echo was done (see results below) and was unchanged from previous echo. Today, patient reports that she had been having spasms in her R shoulder for some time. She states that the spasms were what she experienced when she had STEMI. She states that she stopped Spironolactone because she felt that it was causing her to be dehydrated and caused shoulder spasms. She states that once she stopped taking the medication, the shoulder spasms stopped. She has not taken any SL NTG. She states that she is concerned that she had Echo done and there has not been an improvement in her EF. She denies CP, PND, orthopnea, or presence of edema. She notes that she is SOB with exertion. She attributes this to her recent weight gain that was from caloric intake. She states that she has been trying to lose weight to see if this would help with her feelings of SOB. She is following a low sodium diet to the best of her ability. Weights at home have been stable with no sharp increases or decreases. Patient has had 0 hospitalizations and/or emergency room encounters in the last 12 months. SOB: Yes: with exertion Fatigue: Yes: increased Orthopnea:No PND: No Edema:No Chest Pain:Yes: R shoulder spasms occasionally. She reports that they will resolve with massage. Palpitations:No Dizziness/Lightheadedness:No Syncope:No Appetite: good Diet:low salt (2000 mg) Fluid Restriction: No Regular Exercise: No PAST CARDIAC HISTORY: Heart failure: systolic Ischemic, coronary artery disease and s/p PCI to LAD 04/08/2023. Her cardiac history is also significant for T2DM, HTN, hyperlipidemia, CAD, ICM. Device: NA. PAST MEDICAL HISTORY No date: Arthritis No date: Asthma 02/03/2008: CERVICAL DISC DISPLACMNT No date: Chronic systolic heart failure (HCC) No date: Coronary artery disease No date: Degenerative disc disease No date: Diabetes mellitus type 2, controlled (HCC) No date: Herniated disc No date: HLD (hyperlipidemia) No date: HTN (hypertension) No date: Ischemic cardiomyopathy No date: Migraines No date: BELA (obstructive sleep apnea) 04/13/2023: Pericardial effusion No date: Thyroid nodule No date: Unspecified essential hypertension Comment: Essential hypertension PAST SURGICAL HISTORY No date: ADENOIDECTOMY PRIMARY Comment: Adenoidectomy No date: APPENDECTOMY Comment: W/ exploratory lap No date: BACK SURGERY HX No date: CHOLECYSTECTOMY 09/2023: REMV CATARACT EXTRACAP,INSERT LENS; Bilateral No date: TONSILLECTOMY PRIMARY/SECONDARY Comment: Tonsillectomy No date: VAGINAL HYSTERECTOMY UTERUS 250 GM/< Comment: Hysterectomy, vaginal Social History Tobacco Use Smoking status: Never Smokeless tobacco: Never Tobacco comments: Secondhand smoke exposure x 30 years (Father and 1st ) Substance Use Topics Alcohol use: Yes Comment: rare Drug use: No Family History Problem Relation Age of Onset Heart Mother Allergies Mother Arthritis Mother Asthma Mother Genitourinary () Mother bladder suspension in her 50's Hearing Loss Mother Hypertension Mother Lipids Mother Osteoporosis Mother Heart Father Cancer Father sarcoma Diabetes Father Hearing Loss Father Hypertension Father Lipids Father Stroke Father TIA'S Heart Maternal Grandmother Heart Maternal Grandfather Heart Paternal Grandmother Diabetes Paternal Grandmother other (Goiter) Paternal Grandmother Heart Paternal Grandfather Cancer Paternal Aunt I lost 11 aunts and uncles Cancer Paternal Uncle I lost 11 aunts and uncles Diabetes Paternal Aunt Diabetes Maternal Uncle Headache Daughter migraines ALLERGIES Allergen Reactions Animal Dander Itching Itchy watery eyes, sneezing Imitrex [Sumatripta* Other: See Comments Ozempic [Semaglutid* Intolerance Constipation Propoxyphene Other: See Comments Steroids [Betametha* CURRENT MEDICATIONS: Current Outpatient Medications Medication Sig (more content not included)... [facility] 07-06-2024 Telephone encounter Note Please review and advise. [facility] 07-06-2024 Miscellaneous Notes Please review and advise. documented in this encounter [facility] 07-06-2024 Telephone encounter Note I spoke to and informed them of 's response to Echo results and recommendations. Patient voiced understanding and states she already looked at results. Patient concerned about conclusion where it says, Consider repeat limited ECHO with contrast to assess for thrombus. She is asking if she needs another Echo ordered? She would like response sent to her in [facility]. Su Wood LPN [facility] 07-06-2024 Miscellaneous Notes I spoke to and informed them of 's response to Echo results and recommendations. Patient voiced understanding and states she already looked at results. Patient concerned about conclusion where it says, Consider repeat limited ECHO with contrast to assess for thrombus. She is asking if she needs another Echo ordered? She would like response sent to her in [facility]. Su Wood LPN Attempted to call pt. No answer, no voicemail. Tracey Oliveira RN Images from the original note were not included. Ignacia Cox, I reviewed your echocardiogram. The heart pumping function is unchanged from prior. Again, a normal heart has an ejection fraction of 55-60%. Your ejection fraction has been stable at 30-35%. ... documented in this encounter [facility] 07-06-2024 Telephone encounter Note Attempted to call pt. No answer, no voicemail. Tracey Oliveira RN [facility] 07-06-2024 Telephone encounter Note Images from the original note were not included. Ignacia Bolañosele, I reviewed your echocardiogram. The heart pumping function is unchanged from prior. Again, a normal heart has an ejection fraction of 55-60%. Your ejection fraction has been stable at 30-35%. ... [facility] 06-22-2024 Telephone encounter Note Received notification from [employer] that patient was APPROVED for Mounjaro 2.5mg/0.5ml pen EOC # [id number] Approved from 06/22/24-06/21/25 Patient notified via [employer]. Closed [facility] 06-22-2024 Miscellaneous Notes Received notification from [facility] [employer] [facility] that patient was APPROVED for Mounjaro 2.5mg/0.5ml pen EOC # [id number] Approved from 06/22/24-06/21/25 Patient notified via [employer]. Closed Form signed. Thank you Received a questionnaire from [employer]. Questionnaire completed and on desk for review. Please review and sign. Attached last office notes and A1C per request. 12 pages. Once signed needs to be faxed to [phone]. PA and office notes faxed to [employer], Transmission ok Form signed Thank you Called the phone number which patient provided [phone] which is for [employer]. Completed PA for Mounjaro and it needs to be faxed to [employer] at [phone]. Attached office notes. On your desk to sign. Tried redoing PA in CMM: KENNY VALADEZ (Gonzalez: [id number]) Need Help? Call us at Outcome Additional Information Required Your PA has been resolved, no additional PA is required. For further inquiries please contact the number on the back of the member prescription card. (Message [phone]) Drug Mounjaro 2.5MG/0.5ML pen-injectors [facility] Hospital cloud logo Form [employer] Electronic PA Form (2016 [facility]) Called [facility]--they stated it was not going through, it stated plan limitations exceeded. Asked the for patient's ID since patient has not responded and who they are running it through, they stated [employer]: ID: [id number] BIN: [id number] PIN: ADV Re-faxed PA to [facility] [employer], Mounjaro 2.5mg and 5mg. Transmission OK PA faxed, Transmission ok Keep open Forms x 2 signed Thank you Prior Authorization: Medication/Dose: Mounjaro 2.5mg/0.5ml and Mounjaro 5mg/0.5ml Diagnosis: Type 2 diabetes mellitus E11.29, R80.9, Z79.4 Provider: Mary Kate Barber NP Completed Via: Insurance: [facility] [place] Phone: Pharmacy: [facility] Notes: Completed PA for Mounjaro 2.5mg/0.5ml and 5mg/0.5ml. Patient has tried and failed Ozempic, Trulicity, and Metformin. Attached last office notes and insurance card. Form on desk for review. Please review and sign. Once reviewed and signed, needs to be faxed to [phone]. 13 pages total. documented in this encounter [facility] 06-22-2024 Telephone encounter Note Form signed. Thank you [facility] 06-22-2024 Telephone encounter Note Received a questionnaire from [employer]. Questionnaire completed and on desk for review. Please review and sign. Attached last office notes and A1C per request. 12 pages. Once signed needs to be faxed to [phone]. [facility] 06-22-2024 Telephone encounter Note PA and office notes faxed to RX benefits, Transmission ok [facility] 06-22-2024 Telephone encounter Note Form signed Thank you [facility] 06-21-2024 Telephone encounter Note Called the phone number which patient provided [phone] which is for [employer]. Completed PA for Jamie and it needs to be faxed to [employer] at [phone]. Attached office notes. On your desk to sign. [facility] 06-21-2024 Telephone encounter Note Called pharmacy and they gave me patient's insurance information. Called [facility] pharmacy, 06/21/24--they stated it was not going through, it stated plan limitations exceeded. Asked the for patient's ID since patient has not responded and who they are running it through, they stated [employer]: ID: [id number] BIN: [id number] PIN: ADV [facility] 06-21-2024 Miscellaneous Notes Called pharmacy and they gave me patient's insurance information. Called [facility] pharmacy, 06/21/24--they stated it was not going through, it stated plan limitations exceeded. Asked the for patient's ID since patient has not responded and who they are running it through, they stated [employer]: ID: [id number] BIN: [id number] PIN: ADV Patient is upload a current insurance card. documented in this encounter [facility] 06-21-2024 Telephone encounter Note Tried redoing PA in CMM: KENNY VALADEZ (Gonzalez: [id number]) Need Help? Call us at Outcome Additional Information Required Your PA has been resolved, no additional PA is required. For further inquiries please contact the number on the back of the member prescription card. (Message [phone]) Drug Mounjaro 2.5MG/0.5ML pen-injectors [facility] cloud logo Form [employer] Electronic PA Form (2016 [facility]) Called [facility] [employer]--they stated it was not going through, it stated plan limitations exceeded. Asked the for patient's ID since patient has not responded and who they are running it through, they stated [employer]: ID: [id number] BIN: [id number] PIN: ADV Re-faxed PA to [facility] [employer], Mounjaro 2.5mg and 5mg. Transmission OK [facility] 06-19-2024 Telephone encounter Note Patient is upload a current insurance card. [facility] 06-16-2024 Note ORIGINAL EXAMINATION: BONE DENSITOMETRY06/16/2024 2:58 pm TECHNIQUE: Dual energy bone densitometry of the left hip and left forearm on Hologic system COMPARISON: None HISTORY: ORDERING SYSTEM PROVIDED HISTORY: Reason for Exam: Osteoporosis Screening postmenopausal FINDINGS: Total bone mineral density of the distal 3rd of the left forearm is 0.604 grams per square centimeters, and T-score being -1.4, indicating that this patient has osteopenia. Bone mineral density of the left femoral neck is 0.848 grams per square centimeters, and T-score being 0.0, indicating that this patient has normal bone mineral density. Total bone mineral density of the left hip is 1.064 grams per square centimeters, and T-score being 1.0, indicating that this patient has normal bone mineral density. IMPRESSION: Osteopenia. I have personally reviewed the images of this examination and agree with the resident's findings and interpretation. Interpreted by: Marii Moreno Preliminary Report By: Fam Pittman Electronically signed By Marii Moreno Dictated Date: 06/16/2024 4:16:19 PM Prelim Date: 06/16/2024 4:56:55 PM Sign Date: 06/16/2024 4:56:55 PM Ordering Provider: [facility] 06-14-2024 Telephone encounter Note Pa in process, patient notified. CLOSED [facility] 06-14-2024 Miscellaneous Notes Zulema in process, patient notified. CLOSED Retrieved voicemail message from patient today at 2:46 PM requesting status of Jamie POOLE. Patient's phone number is [phone]. Looks like the PA cannot be processed electronically. Please look into it. Thank you Images from the original note were not included. View all authorizations for this medication Waiting for Payer Response 06/09/2024 1:28 PM Sending user: Sasha Leon MA Payer: [facility] [phone] documented in this encounter [facility] 06-14-2024 Telephone encounter Note PA faxed, Transmission ok Keep open [facility] 06-14-2024 Telephone encounter Note Forms x 2 signed Thank you [facility] 06-14-2024 Telephone encounter Note Prior Authorization: Medication/Dose: Mounjaro 2.5mg/0.5ml and Mounjaro 5mg/0.5ml Diagnosis: Type 2 diabetes mellitus E11.29, R80.9, Z79.4 Provider: Mary Kate Barber NP Completed Via: Insurance: [facility] [place] Phone: Pharmacy: [facility] Notes: Completed PA for Mounjaro 2.5mg/0.5ml and 5mg/0.5ml. Patient has tried and failed Ozempic, Trulicity, and Metformin. Attached last office notes and insurance card. Form on desk for review. Please review and sign. Once reviewed and signed, needs to be faxed to [phone]. 13 pages total. [facility] 06-13-2024 Telephone encounter Note Retrieved voicemail message from patient today at 2:46 PM requesting status of Mounjaro PA. Patient's phone number is [phone]. [facility] 06-12-2024 Instructions Yared Dodd MD - 06/12/2024 9:37 AM EDT We are going to repeat an echocardiogram in Jul We are adding Nexletol 180 mg once per day for your cholesterol and continue the Zetia 10 mg once per day Repeat fasting blood work in 4 months documented in this encounter [facility] 06-12-2024 History of Present illness Narrative Images from the original note were not included. [facility] SE[facility] Cardiology Christine ([facility] Office Bldg (POB)) [address] [facility] [address] OUTPATIENT VISIT DATE 06/12/2024 PRIMARY CARE PHYSICIAN: David Wynn [address] [place] [address] HISTORY OF PRESENT ILLNESS: Ms. Valadez is a 68 year old woman has a history of coronary artery disease and anterior wall myocardial infarction in March 2023 when she presented to hospital with atypical back pain and was found to have evidence of ST elevation underwent emergent cardiac catheterization. She has a resulting ischemic cardiomyopathy ejection fraction of 30%, chronic systolic congestive heart failure, and dyslipidemia. She has a history of diabetes which is insulin requiring. She presents to the office for routine follow-up. She reports gaining weight over the summer months due to inactivity and overeating. She denies symptoms of feeling bloated or having weight gain due to fluid. She has not had symptoms consistent with CHF including PND, orthopnea, lower extremity edema. She has not had palpitations, lightheadedness, dizziness, or syncope. PAST MEDICAL HISTORY Diagnosis Date Arthritis Asthma CERVICAL DISC DISPLACMNT 02/03/2008 Chronic systolic heart failure (HCC) Coronary artery disease Degenerative disc disease Diabetes mellitus type 2, controlled (HCC) Herniated disc HLD (hyperlipidemia) HTN (hypertension) Ischemic cardiomyopathy Migraines BELA (obstructive sleep apnea) Pericardial effusion 04/13/2023 Thyroid nodule Unspecified essential hypertension Essential hypertension PAST SURGICAL HISTORY Procedure Laterality Date ADENOIDECTOMY PRIMARY <AGE 12 Adenoidectomy APPENDECTOMY W/ exploratory lap BACK SURGERY HX CHOLECYSTECTOMY REMV CATARACT EXTRACAP,INSERT LENS Bilateral 09/2023 TONSILLECTOMY PRIMARY/SECONDARY <AGE 12 Tonsillectomy VAGINAL HYSTERECTOMY UTERUS 250 GM/< Hysterectomy, vaginal SOCIAL HISTORY Social History Tobacco Use Smoking status: Never Smokeless tobacco: Never Tobacco comments: Secondhand smoke exposure x 30 years (Father and 1st ) Substance Use Topics Alcohol use: Yes Comment: rare Drug use: No FAMILY HISTORY Problem Relation Age of Onset Heart Mother Allergies Mother Arthritis Mother Asthma Mother Genitourinary () Mother bladder suspension in her 50's Hearing Loss Mother Hypertension Mother Lipids Mother Osteoporosis Mother Heart Father Cancer Father sarcoma Diabetes Father Hearing Loss Father Hypertension Father Lipids Father Stroke Father TIA'S Heart Maternal Grandmother Heart Maternal Grandfather Heart Paternal Grandmother Diabetes Paternal Grandmother other (Goiter) Paternal Grandmother Heart Paternal Grandfather Cancer Paternal Aunt I lost 11 aunts and uncles Cancer Paternal Uncle I lost 11 aunts and uncles Diabetes Paternal Aunt Diabetes Maternal Uncle Headache Daughter migraines ALLERGIES: ALLERGIES Allergen Reactions Animal Dander Itching Itchy watery eyes, sneezing Imitrex [Sumatripta* Other: See Comments Ozempic [Semaglutid* Intolerance Constipation Propoxyphene Other: See Comments Steroids [Betametha* MEDICATIONS: TRESIBA FLEXTOUCH U-200 200 unit/mL (3 mL) injection^Inject subcutaneously 70 units daily^Disp: 12 mL^Rfl: 11 tirzepatide (MOUNJARO) 2.5 mg/0.5 mL pen injector^Inject 2.5 mg subcutaneously one time a week. X 4 wks then increase to 5 mg weekly.^Disp: 2 mL^Rfl: 0 [START ON 07/04/2024] tirzepatide (MOUNJARO) 5 mg/0.5 mL pen injector^Inject 5 mg subcutaneously one time a week. Patient should start on July 04, 2024.^Disp: 2 mL^Rfl: 5 dapagliflozin propanediol (FARXIGA) 10 mg tablet^Take 1 tablet by mouth daily with breakfast.^Disp: 90 tablet^Rfl: 3 clopidogrel (PLAVIX) 75 mg tablet^Take 1 tablet by mouth once daily.^Disp: 90 tablet^Rfl: 3 sacubitril-valsartan (ENTRESTO) 24-26 mg tablet^Take 1 tablet by mouth two times a day.^Disp: 180 tablet^Rfl: 1 ketotifen fumarate (ZADITOR) 0.025 % (0.035 %) ophthalmic solution^USE 1 DROP IN BOTH EYES TWO TIMES A DAY.^Disp: 15 mL^Rfl: 1 blood sugar diagnostic (ONETOUCH ULTRA TEST) test strip^Use as instructed to test blood sugar 3 times daily. DX: E11.42, insulin dependent.^Disp: 300 Strip^Rfl: 3 diphenhydrAMINE (BENADRYL ALLERGY) 12.5 mg/5 mL liquid^^Disp: ^Rfl: cycloSPORINE (RESTASIS) 0.05 % ophthalmic emulsion^Use 1 Drop in both eyes two times a day.^Disp: 180 Each^Rfl: 0 NOVOLOG FLEXPEN U-100 INSULIN 100 unit/mL (3 mL)^INJECT SUBCUTANEOUSLY BREAKFAST 20 UNITS, LUNCH 20 UNITS , DINNER 20 UNITS PLUS SCALE UP TO 70 UNITS DAILY^Disp: 30 mL^Rfl: 11 carvedilol (COREG) 3.125 mg tablet^take 1 tablet by mouth twice a day with food^Disp: 180 tablet^Rfl: 3 insulin needles, DISPOSABLE, (BD INSULIN PEN NEEDLE UF) 31 gauge x 03/30^Use 4 pen needles daily^Disp: 400 Each^Rfl: 3 spironolactone (ALDACTONE) 25 mg tablet^Take 0.5 tablets by mouth once daily.^Disp: 45 tablet^Rfl: 3 Multivitamin capsule^Take 1 capsule by mouth once daily.^Disp: ^Rfl: fexofenadine (ANGELA) 180 mg tablet^Take 180 mg by mouth once daily.^Disp: ^Rfl: nitroglycerin sublingual (NITROQUICK) 0.4 mg SL tablet^Dissolve 1 tablet under the tongue every 5 minutes as needed for chest pain.^Disp: 25 tablet^Rfl: 0 aspirin, enteric coated (ASPIRIN, ENTERIC COATED) 81 mg EC tablet^Take 1 tablet by mouth once daily.^Disp: ^Rfl: REVIEW OF SYSTEMS: Review of Systems Constitutional: Positive for malaise/fatigue. Negative for chills, fever and weight loss. HENT: Negative for hearing loss and sore throat. Eyes: Negative for blurred vision and double vision. Respiratory: Positive for shortness of breath. Cardiovascular: Negative. Gastrointestinal: Negative. Genitourinary: Negative for dysuria, frequency, hematuria and urgency. Musculoskeletal: Positive for myalgias. Skin: Negative. Neurological: Negative for dizziness, seizures, loss of consciousness, weakness and headaches. Endo/Heme/Allergies: Negative for environmental allergies. Does not bruise/bleed easily. Psychiatric/Behavioral: Negative for depression. PHYSICAL EXAMINATION: BP 108/76 Pulse 91 Wt 198 lb (89.8kg) SpO2 97% General: Pleasant woman sitting appears comfortable no apparent distress she is alert and oriented x 3 HEENT: Carotid upstrokes are brisk bilateral without bruits no JVD appreciated. Pulmonary: Lungs are clear no rales, wheezes, rhonchi Cardiovascular: Normal S1, S2 with regular rate and rhythm. No murmurs, rubs, or gallops Extremities: Warm, well-perfused, no lower extremity edema. CARDIOVASCULAR MEDICINE TESTING: ECG in the office 06/22/2023: Normal sinus rhythm with normal axis and intervals. Poor R wave progression anteriorly with Q waves through V1-V6. Cardiac Catheterization/PCI 04/08/2023: Post- Procedure Diagnosis:Occluded mid LAD otherwise mild to moderate diffuse coronary artery disease right coronary dominant system. Percutaneous core intervention with drug-eluting stent placed from the proximal to mid LAD using IVUS assistance. Abnormal left ventricular function with distal anteroapical wall hypokinesis with an EF 35-40% Hemodynamics: LVEDP: 26 mmHg LV - AORTA: No gradient. Coronary Angiography: Left Main: Mild diffuse disease Left Anterior Descending: Moderate to large caliber vessel. The mid vessel is occluded just past the first septal adjunct professor of voice. The proximal vessel has mild to moderate diffuse calcified disease on IVUS evaluation. Circumflex: Large-caliber nondominant vessel. The proximal vessel has mild to moderate diffuse disease with a large first obtuse marginal branch with mild disease. Second obtuse marginal branch has a proximal 50-60% stenosis. Right Coronary Artery: Moderate to large caliber dominant vessel with mild to moderate diffuse disease Collaterals: None Percutaneous coronary intervention: Occlusion of the mid LAD treated with balloon angioplasty and drug-eluting stent placement. A 3.0 x 48 mm Synergy stent was deployed in the lesion and postdilated 3.5 mm distally and 4.2 mm proximally with a good angiographic result. Intravascular ultrasound was performed prior to stenting and post stent for adequacy of stent deployment and complexity of disease. The mid to distal LAD has severe diffuse disease postintervention. LV Gram: LVEF: 35-40% Wall Motion: Distal anterior and apical wall hypokinesis Echocardiogram 06/21/2023: - Exam indication: CAD - The left ventricle is mildly dilated. There is mild concentric left ventricular hypertrophy. Left ventricular systolic function is moderately decreased. EF = 33 5% (2D 4-ch.) Indeterminate left ventricular diastolic dysfunction. - The right ventricle is normal in size. Right ventricular systolic function is mildly decreased. - There are no significant valvular abnormalities. - Definity unavailable. - The patient has not had a prior CC echocardiographic exam for comparison. Echocardiogram 04/13/2023: - Technically difficult exam due to body habitus and suboptimal positioning. - Exam indication: NSTEMI - The left ventricle is normal in size. Left ventricular systolic function is moderately decreased. EF = 34 5% (2D biplane) Definity contrast used for endocardial border detection. Left ventricular diastolic function was not evaluated. Wall motion abnormalities as detailed above - The right ventricle is normal in size. Right ventricular systolic function is normal. - Exam was compared with the prior CC echocardiographic exam performed on 04/09/2023. Pericardial effusion has improved, only trivial today adjacent to RV. Otherwise no significant change Echocardiogram 04/08/2023: CONCLUSIONS: - Technically difficult exam due to body habitus and suboptimal positioning. - Exam indication: Chest Pain - The left ventricle is normal in size. Left ventricular systolic function is severely decreased. EF = 28 5% (2D 4-ch.) Definity contrast used for endocardial border detection. Left ventricular diastolic function was not evaluated. - The right ventricle is small. Right ventricular systolic function is normal. - The patient has not had a prior CC echocardiographic exam for comparison. IMPRESSION: Ms. Valadez is a 68 year old with a history of diabetes insulin requiring who was recently admitted to the hospital with chest pain and evidence of ST elevation myocardial infarction with drug-eluting stent placement to the LAD. She has a resulting ischemic cardiomyopathy with ejection fraction of 30%, chronic systolic congestive heart failure. She is also treated for dyslipidemia. She presents to the office for follow-up. PLAN AND RECOMMENDATIONS: 1. 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 However, at the time of her STEMI presentation she did not have chest pain or pressure. May consider repeat ischemic evaluation - NITROGLYCERIN 0.4 MG SUBLINGUAL TABLET - ECHO - PERFLUTREN LIPID MICROSPHERES 1.1 MG/ML INJECTION IN NS 10 ML - SODIUM CHLORIDE 0.9 % (FLUSH) INJECTION SYRINGE - COMPREHENSIVE METABOLIC PANEL 2. Cardiomyopathy, ischemic - ICD9: 414.8, ICD10: I25.5 Maintained on appropriate guideline directed medical therapy including Entresto, spironolactone, Farxiga. Repeat 2D echocardiogram - SACUBITRIL 24 MG-VALSARTAN 26 MG TABLET - SPIRONOLACTONE 25 MG TABLET - ECHO - PERFLUTREN LIPID MICROSPHERES 1.1 MG/ML INJECTION IN NS 10 ML - SODIUM CHLORIDE 0.9 % (FLUSH) INJECTION SYRINGE 3. Chronic systolic congestive heart failure (HCC) - ICD9: 428.22, 428.0, ICD10: I50.22 Well-controlled on low-sodium diet. Diuretic therapy - SACUBITRIL 24 MG-VALSARTAN 26 MG TABLET 4. Essential hypertension - ICD9: 401.9, ICD10: I10 Well-controlled on current regimen 5. Mixed hyperlipidemia - ICD9: 272.2, ICD10: E78.2 Most recent fasting blood work was reviewed. LDL cholesterol 90 mg/dL. Will attempt to add Nexletol 180 mg daily and continue Zetia 10 mg daily. Repeat fasting blood work in 4 months - NEXLETOL 180 MG TABLET - COMPREHENSIVE METABOLIC PANEL - LIPID PANEL BASIC 6. Pericardial effusion - ICD9: 423.9, ICD10: I31.39 7. Statin intolerance - ICD9: 995.27, ICD10: Z78.9 Yared Dodd MD documented in this encounter [facility] 06-09-2024 Telephone encounter Note Looks like the PA cannot be processed electronically. Please look into it. Thank you [facility] 06-09-2024 Telephone encounter Note Images from the original note were not included. View all authorizations for this medication Waiting for Payer Response 06/09/2024 1:28 PM Sending user: Sasha Leon MA Payer: [facility] [phone] [facility] 06-07-2024 Instructions Jody Sparks APRN.CNP - 06/07/2024 11:49 AM EDT 1. Continue current medications as prescribed. 2. Weigh yourself daily. Call me if your weight increases by 3-4 pounds in a 1-4 day period of time. 3. Continue low salt (2000 mg per day) diet. 4. Be as active as you are able. If you get tired, just stop and rest for a while. 5. Come back and see me in September 07, 2024 at 3 PM. If you have any question or concern, you can call me at [phone]. documented in this encounter [facility] 06-07-2024 History of Present illness Narrative Images from the original note were not included. [facility] OUTPATIENT VISIT DATE June 07, 2024 OUTPATIENT VISIT TYPE ESTABLISHED PRIMARY CARE PHYSICIAN: David Wynn DO CHIEF COMPLAINT: Patient presents with: Shortness of Breath HISTORY OF PRESENT ILLNESS: Kenny Valadez is a 68 year old female who presents today for a follow-up visit in the Heart Failure Clinic. Pt was last seen on 02/28/2024. At that visit, patient reported that she was feeling more SOB with exertion and attributed this to a 10 lb weight gain in 3 months period of time. She reported chest tightness that resolved after some time. Did not require her to take SL NTG. On examination, she was euvolemic and her lungs were clear. No changes were made to her medications at that time. Today, patient reports that she has continued to gain weight since last visit. She states that she has cravings for sugar and once she starts eating it is hard for her to stop. She was seen by endocrinology today and will be starting Monjaro. She states that she does experience SOB with exertion that does resolve with rest period. She notes no SOB at rest. Denies PND and orthopnea. She notes that her allergies have been particularly bad this summer. She notes increased fatigue. She reports that she is having intermittent chest discomfort that starts on the right side of chest that radiates to L side of chest and up to shoulders. She states that she has not taken any SL NTG. She states that it can be continuous or last less than 5 minutes. She states that she has cervical disease and rotator cuff issues on the right. She notes that pain is similar to pain she had when she had IL. She has not went to the ED when she has had this pain. Currently, she is not experiencing this pain during visit. She is taking her medications as prescribed and she is following a low sodium diet to the best of her ability. Weights have been stable at 194 lbs. Patient has had 0 hospitalizations and/or emergency room encounters in the last 12 months. SOB: Yes: with exertion Fatigue: Yes: increased Orthopnea:No PND: No Edema:No Chest Pain:Yes: in the left side of chest and right side of chest area(s), which radiates to the neck and shoulders, that lasts for less than 5 minutes, relieved by nothing- does not currently have pain. This is intermittently. Palpitations:No Dizziness/Lightheadedness:yes, occasionally with no associated symptoms Syncope:No Appetite: good Diet:low salt (2000 mg) Fluid Restriction: No Regular Exercise: No PAST CARDIAC HISTORY: Heart failure: systolic Ischemic, coronary artery disease and s/p PCI to LAD 04/08/2023. Her cardiac history is also significant for T2DM, HTN, hyperlipidemia, CAD, ICM. Device: NA. PAST MEDICAL HISTORY Diagnosis Date Arthritis Asthma CERVICAL DISC DISPLACMNT 02/03/2008 Chronic systolic heart failure (HCC) Coronary artery disease Degenerative disc disease Diabetes mellitus type 2, controlled (HCC) Herniated disc HLD (hyperlipidemia) HTN (hypertension) Ischemic cardiomyopathy Migraines BELA (obstructive sleep apnea) Pericardial effusion 04/13/2023 Thyroid nodule Unspecified essential hypertension Essential hypertension PAST SURGICAL HISTORY Procedure Laterality Date ADENOIDECTOMY PRIMARY <AGE 12 Adenoidectomy APPENDECTOMY W/ exploratory lap BACK SURGERY HX CHOLECYSTECTOMY REMV CATARACT EXTRACAP,INSERT LENS Bilateral 09/2023 TONSILLECTOMY PRIMARY/SECONDARY <AGE 12 Tonsillectomy VAGINAL HYSTERECTOMY UTERUS 250 GM/< Hysterectomy, vaginal Social History Tobacco Use Smoking status: Never Smokeless tobacco: Never Tobacco comments: Secondhand smoke exposure x 30 years (Father and 1st ) Substance Use Topics Alcohol use: Yes Comment: rare Drug use: No Family History Problem Relation Age of Onset Heart Mother Allergies Mother Arthritis Mother Asthma Mother Genitourinary () Mother bladder suspension in her 50's Hearing Loss Mother Hypertension Mother Lipids Mother Osteoporosis Mother Heart Father Cancer Father sarcoma Diabetes Father Hearing Loss Father Hypertension Father Lipids Father Stroke Father TIA'S Heart Maternal Grandmother Heart Maternal Grandfather Heart Paternal Grandmother Diabetes Paternal Grandmother other (Goiter) Paternal Grandmother Heart Paternal Grandfather Cancer Paternal Aunt I lost 11 aunts and uncles Cancer Paternal Uncle I lost 11 aunts and uncles Diabetes Paternal Aunt Diabetes Maternal Uncle Headache Daughter migraines ALLERGIES Allergen Reactions Animal Dander Itching Itchy watery eyes, sneezing Imitrex [Sumatripta* Other: See Comments Ozempic [Semaglutid* Intolerance Constipation Propoxyphene Other: See Comments Steroids [Betametha* CURRENT MEDICATIONS: Current Outpatient Medications Medication Sig Dispense Refill TRESIBA FLEXTOUCH U-200 200 unit/mL (3 mL) injection Inject subcutaneously 70 units daily 12 mL 11 tirzepatide (MOUNJARO) 2.5 mg/0.5 mL pen injector Inject 2.5 mg subcutaneously one time a week. X 4 wks then increase to 5 mg weekly. 2 mL 0 [START ON 07/04/2024] tirzepatide (MOUNJARO) 5 mg/0.5 mL pen injector Inject 5 mg subcutaneously one time a week. Patient should start on July 04, 2024. 2 mL 5 dapagliflozin propanediol (FARXIGA) 10 mg tablet Take 1 tablet by mouth daily with breakfast. 90 tablet 3 clopidogrel (PLAVIX) 75 mg tablet Take 1 tablet by mouth once daily. 90 tablet 3 sacubitril-valsartan (ENTRESTO) 24-26 mg tablet Take 1 tablet by mouth two times a day. 180 tablet 1 ketotifen fumarate (ZADITOR) 0.025 % (0.035 %) ophthalmic solution USE 1 DROP IN BOTH EYES TWO TIMES A DAY. 15 mL 1 blood sugar diagnostic (ONETOUCH ULTRA TEST) test strip Use as instructed to test blood sugar 3 times daily. DX: E11.42, insulin dependent. 300 Strip 3 diphenhydrAMINE (BENADRYL ALLERGY) 12.5 mg/5 mL liquid cycloSPORINE (RESTASIS) 0.05 % ophthalmic emulsion Use 1 Drop in both eyes two times a day. 180 Each 0 NOVOLOG FLEXPEN U-100 INSULIN 100 unit/mL (3 mL) INJECT SUBCUTANEOUSLY BREAKFAST 20 UNITS, LUNCH 20 UNITS , DINNER 20 UNITS PLUS SCALE UP TO 70 UNITS DAILY 30 mL 11 carvedilol (COREG) 3.125 mg tablet take 1 tablet by mouth twice a day with food 180 tablet 3 insulin needles, DISPOSABLE, (BD INSULIN PEN NEEDLE UF) 31 gauge x 03/30 Use 4 pen needles daily 400 Each 3 spironolactone (ALDACTONE) 25 mg tablet Take 0.5 tablets by mouth once daily. 45 tablet 3 Multivitamin capsule Take 1 capsule by mouth once daily. fexofenadine (ANGELA) 180 mg tablet Take 180 mg by mouth once daily. nitroglycerin sublingual (NITROQUICK) 0.4 mg SL tablet Dissolve 1 tablet under the tongue every 5 minutes as needed for chest pain. 25 tablet 0 aspirin, enteric coated (ASPIRIN, ENTERIC COATED) 81 mg EC tablet Take 1 tablet by mouth once daily. Current Facility-Administered Medications Medication Dose Route Frequency Provider Last Rate Last Admin perflutren lipid microspheres 1.3 mL in NaCl (PF) 0.9% 10 mL injection (DEFINITY) INTRAVENOUS DIRECTED PRN Yared Dodd MD sodium chloride 0.9 % (flush) 10 mL (BD POSIFLUSH) 10 mL INTRAVENOUS DIRECTED PRN Yared Dodd MD Functional Assessment: Does the patient have any concerns about safety in the home?No Does the patient have difficulty performing or completing routine daily living activities?No Is the patient at risk for falls?No REVIEW OF SYSTEMS: GENERAL: Positive for:Weight gain and Sleep difficulties Negative for:Weight loss , Fever or Chills, and Weakness HEENT: Positive for:Impaired Vision and Glasses , Negative for:Headache, Hearing Impairment, Ringing in Ears, Nosebleeds, Poor Dental Care, Bleeding Gums, and Dentures NECK: Positive for: Pain and Stiffness , Negative for:Swelling RESPIRATORY: Positive for: Cough and Shortness of breath , Negative for:Blood in Sputum, Wheezing, and Apnea GASTROINTESTINAL: Negative for: Trouble swallowing, Heartburn, Change in bowel habits, Blood in stool, Dark black stools MUSCULOSKELETAL: Positive for: Muscle or joint pain , Negative for: Stiffness and Joint swelling NEUROLOGIC/PSYCHIATRIC: Positive for: Numbness, Tingling , Negative for: Weakness, Paralysis, Tremor, Nervousness or anxiety, Depressed mood, Memory loss SKIN: Negative for: Rash, Itching HEMATOLOGICAL/LYMPHATIC: Negative for: Easy bruising, Easy bleeding PHYSICAL EXAMINATION: BP 141/82 Pulse 80 Wt 88.4 kg (194 lb 14.2 oz) SpO2 95% BMI 30.98 kg/m General: no distress, ambulating independently, alert and oriented x 3, pleasant and conversational during examination. Skin: No clubbing, no cyanosis. Neck: Neck veins are not distended Lungs: Chest clear to auscultation Heart: Rhythm: regular rate and rhythm, Rate: normal, S1: normal intensity, S2: normal intensity, S3: No, S4: No, no murmur Abdomen: Palpation normal, Bowel Sounds: Present Extremities: Normal exam of the extremities, no edema CARDIOVASCULAR MEDICINE TESTING: No Cardiovascular testing perfomed today. I have personally reviewed the Laboratory Testing and Echocardiogram. ECHO 06/21/2023: CONCLUSIONS: - Exam indication: CAD - The left ventricle is mildly dilated. There is mild concentric left ventricular hypertrophy. Left ventricular systolic function is moderately decreased. EF = 33 5% (2D 4-ch.) Indeterminate left ventricular diastolic dysfunction. - The right ventricle is normal in size. Right ventricular systolic function is mildly decreased. - There are no significant valvular abnormalities. - Definity unavailable. - The patient has not had a prior CC echocardiographic exam for comparison. IMPRESSION: NYHA Functional Class: II Stage: C heart failure Mrs. Valadez is a 68 year old female who presents for follow up for chronic systolic heart failure. Pt reports that she has been having SOB with exertion. This will resolve with rest period. She notes 10 lb weight gain and feels that she would likely be less SOB if she could lose 10 lbs. She is to start Monjaro soon. She also reports chest discomfort that is intermittent. Instructed patient to seek treatment in ED if pain is persistent. She is following up with cardiology next week. On examination, she is euvolemic and her lungs are clear. She will continue on her current medications at current doses. She will follow up in HF Clinic in August or sooner PRN. PLAN AND RECOMMENDATIONS: 1. Chronic systolic congestive heart failure (HCC) - ICD9: 428.22, 428.0, ICD10: I50.22 (primary diagnosis) - Euvolemic on examination. EF-33% - Continue Spironolactone - Continue Coreg - Continue Entresto - Continue Farxiga - Daily weights. Call if weight increases by 3-4 lbs in 1-4 days period of time. - 2g low sodium diet - Activity as tolerated. Rest breaks as needed. - Follow up in HF Clinic in August or sooner PRN. 2. Cardiomyopathy, ischemic - ICD9: 414.8, ICD10: I25.5 - Stable at this time. - Continue current medications at current doses. 3. Primary hypertension - ICD9: 401.9, ICD10: I10 - Controlled - Continue current medications - Recommend home blood pressure monitoring, to bring results to next visit - Encouraged sodium restriction, DASH or Mediterranean diet - Recommend regular aerobic exercise Followup appointment with Dr. Dodd on 06/12/2024. COUNSELING: We discussed the following non-pharmacological measures during this visit: Smoking and alcohol abstinence/cessation, if applicable Dietary and medication compliance Monitoring daily weights and blood pressures Exercise regimen When to call our office Heart Failure Education Booklet: given previously. Discussed red flags and when to call MD/CITY DISPATCH SUPERVISOR or go to ED. Medications reconciled at end of visit: yes I spent 37 minutes in this visit, with more than 50% of the time devoted to patient counseling. A portion of documentation from previous visit of 02/28/2024 was copied and pasted, documentation has been reviewed and edited as necessary for today's visit. SIGNATURE: Jody Sparks APRN.CNP PATIENT NAME: Kenny Valadez DATE: June 07, 2024 TIME: 11:26 AM documented in this encounter [facility] 06-07-2024 Note HNO ID: [id number] Author: JODY SPARKS APRN.CNP Service: ? Author Type: Nurse Practitioner Type: Progress Notes Filed: 06/07/2024 12:35 Note Text: [facility] OUTPATIENT VISIT DATE June 07, 2024 OUTPATIENT VISIT TYPE ESTABLISHED PRIMARY CARE PHYSICIAN: David Wynn DO CHIEF COMPLAINT: Patient presents with: Shortness of Breath HISTORY OF PRESENT ILLNESS: Kenny Valadez is a 68 year old female who presents today for a follow-up visit in the Heart Failure Clinic. Pt was last seen on 02/28/2024. At that visit, patient reported that she was feeling more SOB with exertion and attributed this to a 10 lb weight gain in 3 months period of time. She reported chest tightness that resolved after some time. Did not require her to take SL NTG. On examination, she was euvolemic and her lungs were clear. No changes were made to her medications at that time. Today, patient reports that she has continued to gain weight since last visit. She states that she has cravings for sugar and once she starts eating it is hard for her to stop. She was seen by endocrinology today and will be starting Monjaro. She states that she does experience SOB with exertion that does resolve with rest period. She notes no SOB at rest. Denies PND and orthopnea. She notes that her allergies have been particularly bad this summer. She notes increased fatigue. She reports that she is having intermittent chest discomfort that starts on the right side of chest that radiates to L side of chest and up to shoulders. She states that she has not taken any SL NTG. She states that it can be continuous or last less than 5 minutes. She states that she has cervical disease and rotator cuff issues on the right. She notes that pain is similar to pain she had when she had IL. She has not went to the ED when she has had this pain. Currently, she is not experiencing this pain during visit. She is taking her medications as prescribed and she is following a low sodium diet to the best of her ability. Weights have been stable at 194 lbs. Patient has had 0 hospitalizations and/or emergency room encounters in the last 12 months. SOB: Yes: with exertion Fatigue: Yes: increased Orthopnea:No PND: No Edema:No Chest Pain:Yes: in the left side of chest and right side of chest area(s), which radiates to the neck and shoulders, that lasts for less than 5 minutes, relieved by nothing- does not currently have pain. This is intermittently. Palpitations:No Dizziness/Lightheadedness:yes, occasionally with no associated symptoms Syncope:No Appetite: good Diet:low salt (2000 mg) Fluid Restriction: No Regular Exercise: No PAST CARDIAC HISTORY: Heart failure: systolic Ischemic, coronary artery disease and s/p PCI to LAD 04/08/2023. Her cardiac history is also significant for T2DM, HTN, hyperlipidemia, CAD, ICM. Device: NA. PAST MEDICAL HISTORY Diagnosis Date Arthritis Asthma CERVICAL DISC DISPLACMNT 02/03/2008 Chronic systolic heart failure (HCC) Coronary artery disease Degenerative disc disease Diabetes mellitus type 2, controlled (HCC) Herniated disc HLD (hyperlipidemia) HTN (hypertension) Ischemic cardiomyopathy Migraines BELA (obstructive sleep apnea) Pericardial effusion 04/13/2023 Thyroid nodule Unspecified essential hypertension Essential hypertension PAST SURGICAL HISTORY Procedure Laterality Date ADENOIDECTOMY PRIMARY Adenoidectomy APPENDECTOMY W/ exploratory lap BACK SURGERY HX CHOLECYSTECTOMY REMV CATARACT EXTRACAP,INSERT LENS Bilateral 09/2023 TONSILLECTOMY PRIMARY/SECONDARY Tonsillectomy VAGINAL HYSTERECTOMY UTERUS 250 GM/< Hysterectomy, vaginal Social History Tobacco Use Smoking status: Never Smokeless tobacco: Never Tobacco comments: Secondhand smoke exposure x 30 years (Father and 1st ) Substance Use Topics Alcohol use: Yes Comment: rare Drug use: No Family History Problem Relation Age of Onset Heart Mother Allergies Mother Arthritis Mother Asthma Mother Genitourinary () Mother bladder suspension in her 50's Hearing Loss Mother Hypertension Mother Lipids Mother Osteoporosis Mother Heart Father Cancer Father sarcoma Diabetes Father Hearing Loss Father Hypertension Father Lipids Father Stroke Father TIA'S Heart Maternal Grandmother Heart Maternal Grandfather Heart Paternal Grandmother Diabetes Paternal Grandmother other (Goiter) Paternal Grandmother Heart Paternal Grandfather Cancer Paternal Aunt I lost 11 aunts and uncles Cancer Paternal Uncle I lost 11 aunts and uncles Diabetes Paternal Aunt Diabetes Maternal Uncle Headache Daughter migraines ALLERGIES Allergen Reactions Animal Dander Itching Itchy watery eyes, sneezing Imitrex [Sumatripta* Other: See Comments Ozempic [Semaglutid* Intolerance Constipation Propo (more content not included)... [facility] 06-07-2024 Instructions Mary Kate Barber APRN.MANAGER NEWS - 06/07/2024 10:57 AM EDT Start Mounjaro 2.5 mg weekly x 4 wks then increase to 5 mg weekly. Continue tresiba 70 units daily. Continue farxiga Novolog: Breakfast 20 units Lunch 20 units Dinner 20 units Plus add novolog per scale below if needed: If Blood Glucose (mg/dL) is < 150 Give 0 units 151-200 Give 1 unit 201-250 Give 2 units 251-300 Give 3 units 301-350 Give 4 units >351 Give 5 units Follow up in 3-4 months Mary Kate Barber, MSN, SEW[employer] MAINTENANCE SUPERVISOR, CITY DISPATCH SUPERVISOR-C, [facility] Endocrinology [facility] Medical Office Building/[address], [address] [place] [address] Fax: documented in this encounter [facility] 06-07-2024 History of Present illness Narrative Reason for Consultation: DM Type 2 Referring Physician: Luli Perdomo MD [id number] [facility] [address] HISTORY OF PRESENT ILLNESS; Ms. Valadez is a 68 year old female presenting for follow up regarding DM Type 2. She was initially diagnosed with diabetes approx. 2000. She has been on insulin since at least age 55. LV 02/18/24 A1C today is 8.1 History of diabetes, HTN, HLD, peripheral neuropathy, obesity, allergies, thyroid nodule, BELA, NSTEMI s/p stent , microalbuminuria, CKD Denies pancreatitis, medullary TC, gastroparesis She is under the care of nephrology, Dr. Perdomo and cardiology Dr. Dodd. Rashel was cost prohibitive. At the last visit she wanted to try Ozempic which she did and resulted in severe constipation at the dose of 0.5 mg weekly and she discontinued it. She would like to try Mounjaro instead. Needs a script for KIARA Tresiba per insurance. Her current diabetes regimen is: Tresiba (u200 pen) 60 units daily at noon --taking 80 units daily instead Farxiga 10 mg daily Novolog 20 units TID meals plus SS If Blood Glucose (mg/dL) is < 150 Give 0 units 151-200 Give 1 unit 201-250 Give 2 units 251-300 Give 3 units 301-350 Give 4 units >351 Give 5 units Previous DM medications: Glyburide actos janumet Glucotrol Metformin--stomach upset. Levemir--ineffective Trulicity --stomach issues. Ozempic--severe constipation Regarding symptoms of hyperglycemia, she is not experiencing polyuria and polydipsia. Exercise:Mil Cox is checking her blood glucose 0-1 She did bring a logbook today for review: Various times: 254, 369, 268, 260, 102 Hypoglycemia frequency: denies Hypoglycemia awareness: Yes Overall, the patient has no acute complaints at this time. HTN: Intolerant to KALIE ARB--Entresto HLD: Not currently on a statin. PAST MEDICAL HISTORY Diagnosis Date Arthritis Asthma CERVICAL DISC DISPLACMNT 02/03/2008 Chronic systolic heart failure (HCC) Coronary artery disease Degenerative disc disease Diabetes mellitus type 2, controlled (HCC) Herniated disc HLD (hyperlipidemia) HTN (hypertension) Ischemic cardiomyopathy Migraines BELA (obstructive sleep apnea) Pericardial effusion 04/13/2023 Thyroid nodule Unspecified essential hypertension Essential hypertension PAST SURGICAL HISTORY Procedure Laterality Date ADENOIDECTOMY PRIMARY <AGE 12 Adenoidectomy APPENDECTOMY W/ exploratory lap BACK SURGERY HX CHOLECYSTECTOMY REMV CATARACT EXTRACAP,INSERT LENS Bilateral 09/2023 TONSILLECTOMY PRIMARY/SECONDARY <AGE 12 Tonsillectomy VAGINAL HYSTERECTOMY UTERUS 250 GM/< Hysterectomy, vaginal FAMILY HISTORY Problem Relation Age of Onset Heart Mother Allergies Mother Arthritis Mother Asthma Mother Genitourinary () Mother bladder suspension in her 50's Hearing Loss Mother Hypertension Mother Lipids Mother Osteoporosis Mother Heart Father Cancer Father sarcoma Diabetes Father Hearing Loss Father Hypertension Father Lipids Father Stroke Father TIA'S Heart Maternal Grandmother Heart Maternal Grandfather Heart Paternal Grandmother Diabetes Paternal Grandmother other (Goiter) Paternal Grandmother Heart Paternal Grandfather Cancer Paternal Aunt I lost 11 aunts and uncles Cancer Paternal Uncle I lost 11 aunts and uncles Diabetes Paternal Aunt Diabetes Maternal Uncle Headache Daughter migraines Social History Tobacco Use Smoking status: Never Smokeless tobacco: Never Tobacco comments: Secondhand smoke exposure x 30 years (Father and 1st ) Substance Use Topics Alcohol use: Yes Comment: rare Drug use: No Current Outpatient Medications Medication Sig Dispense Refill clopidogrel (PLAVIX) 75 mg tablet Take 1 tablet by mouth once daily. 90 tablet 3 sacubitril-valsartan (ENTRESTO) 24-26 mg tablet Take 1 tablet by mouth two times a day. 180 tablet 1 ketotifen fumarate (ZADITOR) 0.025 % (0.035 %) ophthalmic solution USE 1 DROP IN BOTH EYES TWO TIMES A DAY. 15 mL 1 blood sugar diagnostic (ONETOUCH ULTRA TEST) test strip Use as instructed to test blood sugar 3 times daily. DX: E11.42, insulin dependent. 300 Strip 3 diphenhydrAMINE (BENADRYL ALLERGY) 12.5 mg/5 mL liquid cycloSPORINE (RESTASIS) 0.05 % ophthalmic emulsion Use 1 Drop in both eyes two times a day. 180 Each 0 NOVOLOG FLEXPEN U-100 INSULIN 100 unit/mL (3 mL) INJECT SUBCUTANEOUSLY BREAKFAST 20 UNITS, LUNCH 20 UNITS , DINNER 20 UNITS PLUS SCALE UP TO 70 UNITS DAILY 30 mL 11 carvedilol (COREG) 3.125 mg tablet take 1 tablet by mouth twice a day with food 180 tablet 3 insulin degludec (TRESIBA FLEXTOUCH U-200) 200 unit/mL (3 mL) injection Inject subcutaneously 60 units daily 9 mL 11 insulin needles, DISPOSABLE, (BD INSULIN PEN NEEDLE UF) 31 gauge x 5/16 Use 4 pen needles daily 400 Each 3 spironolactone (ALDACTONE) 25 mg tablet Take 0.5 tablets by mouth once daily. 45 tablet 3 Multivitamin capsule Take 1 capsule by mouth once daily. dapagliflozin propanediol (FARXIGA) 10 mg tablet Take 1 tablet by mouth daily with breakfast. 90 tablet 3 fexofenadine (ANGELA) 180 mg tablet Take 180 mg by mouth once daily. nitroglycerin sublingual (NITROQUICK) 0.4 mg SL tablet Dissolve 1 tablet under the tongue every 5 minutes as needed for chest pain. 25 tablet 0 aspirin, enteric coated (ASPIRIN, ENTERIC COATED) 81 mg EC tablet Take 1 tablet by mouth once daily. Current Facility-Administered Medications Medication Dose Route Frequency Provider Last Rate Last Admin perflutren lipid microspheres 1.3 mL in NaCl (PF) 0.9% 10 mL injection (DEFINITY) INTRAVENOUS DIRECTED PRN Yared Dodd MD sodium chloride 0.9 % (flush) 10 mL (BD POSIFLUSH) 10 mL INTRAVENOUS DIRECTED PRN Yared Dodd MD Allergies As of Date: 06/07/2024 Allergen Noted Reaction ANIMAL DANDER 04/08/2023 Itching IMITREX [SUMATRIPTAN] 04/07/2023 Other: See Comments OZEMPIC [SEMAGLUTIDE] 06/07/2024 Intolerance PROPOXYPHENE 02/23/2024 Other: See Comments STEROIDS [BETAMETHASONE DIPROPION*01/31/2008 Fully Assessed 06/07/2024 REVIEW OF SYSTEMS: Answers submitted by the patient for this visit: Core Review of Systems (Submitted on 06/05/2024) Fever : No Night sweats: No Recent unintentional weight change: Yes Nasal Congestion: No Hearing Loss: No Vision Disturbance: Yes A cough: Yes Difficulty Breathing?: Yes Chest pain: No Irregular heartbeat: No Leg Swelling: No Nausea: No Diarrhea: No Black tarry stools: No Difficulty Urinating?: No Awaken at Night More Than Once to Urinate?: No Joint pain or stiffness: Yes Muscle aches: Yes Leg or Foot Discomfort at Night?: Yes A rash: No Dizziness: No Headaches: No Memory Loss: No Seizures: No PHYSICAL EXAM: BP 131/82 Pulse 92 Ht 168.9 cm (5' 6.5) Wt 88.2 kg (194 lb 7.1 oz) SpO2 97% BMI 30.91 kg/m2 Physical Exam Constitutional: Appearance: Normal appearance. She is obese. Cardiovascular: Rate and Rhythm: Normal rate and regular rhythm. Pulmonary: Effort: Pulmonary effort is normal. Breath sounds: Normal breath sounds. Neurological: Mental Status: She is alert and oriented to person, place, and time. Psychiatric: Mood and Affect: Mood normal. Behavior: Behavior normal. Feet:Shoes and socks removed, sensitive to 10 gm monofilament, and calluses noted bilaterally DATA: Creatinine Date Value Ref Range Status 09/28/2023 0.97 (H) 0.58 - 0.96 mg/dL Final Hemoglobin A1C (%) Date Value 04/15/2012 10.8 Hemoglobin A1C (POCT) (%) Date Value 02/18/2024 8.5 ) No components found for: URINEALBUMIN Cholesterol, Total (mg/dL) Date Value 01/22/2024 159 HDL Cholesterol (mg/dL) Date Value 01/22/2024 29 LDL Cholesterol (mg/dL) Date Value 01/22/2024 90 LDL Cholesterol, Nonfasting (mg/dL) Date Value 04/07/2023 120 Triglyceride (mg/dL) Date Value 01/22/2024 199 *Care everywhere reviewed --labs from 04/12/24 Serum creatinine 1.16/eGFR 46 Urine microalbumin/ratio 91 TSH 1.24 IMPRESSION: Ms. Valadez is a 68 year old female here for evaluation of DM Type 2 complicated by hypertension, hyperlipidemia, CKD, peripheral neuropathy and microalbuminuria RECOMMENDATIONS (E11.29, R80.9, Z79.4) Type 2 diabetes mellitus with diabetic microalbuminuria, with long-term current use of insulin ([facility]) (primary encounter diagnosis) Comment: Glycemic control is above goal. Will switch to Mounjaro. She was advised that the side effects could be the same. Insulin adjusted Urine protein is stable. She is on SGLT2 and ARB Plan: TRESIBA FLEXTOUCH U-200 200 unit/mL (3 mL) injection, GLOOKO ON DEMAND, HEMOGLOBIN A1C (POC), tirzepatide (MOUNJARO) 2.5 mg/0.5 mL pen injector, tirzepatide (MOUNJARO) 5 mg/0.5 mL pen injector, dapagliflozin propanediol (FARXIGA) 10 mg tablet Start Mounjaro 2.5 mg weekly x 4 wks then increase to 5 mg weekly. Continue tresiba 70 units daily. Continue farxiga Novolog: Breakfast 20 units Lunch 20 units Dinner 20 units Plus add novolog per scale below if needed: If Blood Glucose (mg/dL) is < 150 Give 0 units 151-200 Give 1 unit 201-250 Give 2 units 251-300 Give 3 units 301-350 Give 4 units >351 Give 5 units Follow up in 3-4 months (E11.42, Z79.4) Type 2 diabetes mellitus with diabetic polyneuropathy, with long-term current use of insulin ([facility]) Comment: Glycemic control is above goal. Will switch to Mounjaro. She was advised that the side effects could be the same. Insulin adjusted Neuropathy is monitored and stable. Foot exam completed today Plan: TRESIBA FLEXTOUCH U-200 200 unit/mL (3 mL) injection, GLOOKO ON DEMAND, HEMOGLOBIN A1C (POC), tirzepatide (MOUNJARO) 2.5 mg/0.5 mL pen injector, tirzepatide (MOUNJARO) 5 mg/0.5 mL pen injector, dapagliflozin propanediol (FARXIGA) 10 mg tablet Start Mounjaro 2.5 mg weekly x 4 wks then increase to 5 mg weekly. Continue tresiba 70 units daily. Continue farxiga Novolog: Breakfast 20 units Lunch 20 units Dinner 20 units Plus add novolog per scale below if needed: If Blood Glucose (mg/dL) is < 150 Give 0 units 151-200 Give 1 unit 201-250 Give 2 units 251-300 Give 3 units 301-350 Give 4 units >351 Give 5 units Follow up in 3-4 months (E11.22, N18.31, Z79.4) Type 2 diabetes mellitus with stage 3a chronic kidney disease, with long-term current use of insulin ([facility]) Comment: Glycemic control is above goal. Will switch to Mounjaro. She was advised that the side effects could be the same. Insulin adjusted. Renal disease is monitored and stable Plan: Start Mounjaro 2.5 mg weekly x 4 wks then increase to 5 mg weekly. Continue tresiba 70 units daily. Continue farxiga Novolog: Breakfast 20 units Lunch 20 units Dinner 20 units Plus add novolog per scale below if needed: If Blood Glucose (mg/dL) is < 150 Give 0 units 151-200 Give 1 unit 201-250 Give 2 units 251-300 Give 3 units 301-350 Give 4 units >351 Give 5 units Follow up in 3-4 months (E11.649) Hypoglycemia due to type 2 diabetes mellitus (HCC) Comment/Plan: CGM cost prohibitive (E04.1) Nontoxic single thyroid nodule Comment/Plan: single subcentimeter nodule of 0.8 cm (8mm) She has been euthyroid. Managed per PCP (I10) Essential hypertension Comment/Plan: Managed per PCP/cardiology (E78.2) Mixed hyperlipidemia Comment/Plan: s/p NSTEMI with stent; Managed per PCP/cardiology (E66.9) Obesity, Class I, BMI 30-34.9 Comment: Body mass index is 30.91 kg/m . Plan: Encouraged increase dietary and exercise efforts as able Medical Decision Making: Level: 4 - Moderate Mary Kate Barber, MSN, SEWER MAINTENANCE SUPERVISOR, CITY DISPATCH SUPERVISOR-C, [facility] Endocrinology [facility] Medical Office [facility]/[address], [address] [place] [address] Fax: documented in this encounter [facility] 05-24-2024 History of Present illness Narrative Assessment and Plan 1. Dry eye syndrome of both eyes 2. Pseudophakia -main complaint is blurry vision (clouds in vision) since cataract surgery (multifocal intraocular lens) [Sep 2023] -Subconjunctival hemorrhage left eye after cataract surgery - now with pain left eye (01/22) -also tearing Dry Eye Treatment: Artificial tears Effective?: Partially Cyclosporine Effective?: No Cold compresses help 3. Other chronic allergic conjunctivitis of both eyes -cold compresses help 4. Type 2 diabetes mellitus with both eyes affected by mild nonproliferative retinopathy without macular edema, with long-term current use of insulin (HCC) -few microaneurysms right eye 5. Posterior vitreous detachment (PVD) both eyes 6. Floaters both eyes 7. Lattice left eye -contributing to symptoms? -Retina precautions reviewed. Return to clinic as soon as possible if increased floaters, flashes, or shadows. Plan: -Continue blood sugar and blood pressure control -pataday once a day both eyes -restasis twice a day both eyes -encouraged to try glasses for distance - trial frame helped in clinic! -follow-up 1-2 months. To consider punctal plugs. May be a candidate for AST study? Intraocular lens exchange as last resort. Photorefractive keratectomy (PRK) candidate if glasses help? I have confirmed and edited as necessary the relevant ophthalmic history, ROS, and the neuro exam findings as obtained by others. I have seen and examined Kenny Valadez. I have discussed the case and the management of this patient's care with the Resident/Fellow, if applicable. I also have reviewed and agree with the assessment and plan as stated above and agree with all of its relevant components. Mesfin Perrin MD documented in this encounter [facility] 05-04-2024 Telephone encounter Note Patient requesting refills as follows: Requested Prescriptions Pending Prescriptions Disp Refills clopidogrel (PLAVIX) 75 mg tablet 90 tablet 3 Sig: Take 1 tablet by mouth once daily. sacubitril-valsartan (ENTRESTO) 24-26 mg tablet 180 tablet 1 Sig: Take 1 tablet by mouth two times a day. Please review and advise. Loan Obrien, RN [facility] 05-04-2024 Miscellaneous Notes Patient requesting refills as follows: Requested Prescriptions Pending Prescriptions Disp Refills clopidogrel (PLAVIX) 75 mg tablet 90 tablet 3 Sig: Take 1 tablet by mouth once daily. sacubitril-valsartan (ENTRESTO) 24-26 mg tablet 180 tablet 1 Sig: Take 1 tablet by mouth two times a day. Please review and advise. Loan Obrien, RN documented in this encounter [facility] 03-15-2024 Evaluation + Plan note Future Scheduled TestsMA Mammo Screening Bilateral w/ Adalberto 03/15/24BD Bone Density DEXA Axial Skeleton 03/15/24US Thyroid 03/15/24US Thyroid 09/08/23 [facility] [place] 03-15-2024 Evaluation + Plan note Future Scheduled TestsUS Thyroid 03/15/24US Thyroid 09/08/23 [facility] 03-15-2024 Evaluation + Plan note Future Scheduled TestsUS Thyroid 03/15/24 [facility] 03-14-2024 Telephone encounter Note Rx updated. Thank you [facility] 03-14-2024 Miscellaneous Notes Rx updated. Thank you Images from the original note were not included. Received notification from pharmacy/insurance that they will not cover 600 strips per 90 days. They will cover 450 strips for 75 days. We will need to change the RX. Waiting for Auth Details Contact the payer to obtain prior authorization. Prior auth initiated by: [employer] [facility] Pharm[facility] - [place] [id number] - [facility] [phone] Portal to [facility] [phone] View History Notes Time User Attachment Your patients benefit plan only allows for quantity of 450 in 75 Days without a PA. Please respond with prescription changes or obtain Prior Auth. Call [phone] indicate Qty and Days Supply on ePA. 03/13/2024 11:53 AM Ce, [facility] Incoming Retail Pharmacy From [facility] Medication Being Authorized blood sugar diagnostic (ONETOUCH ULTRA TEST) test strip Use as instructed to test blood sugar 6 times daily; IDDM,11.21 Dispense: 600 Strip Refills: 3 Start: 11/19/2023 Class: Normal Diagnoses: Type 2 diabetes mellitus with diabetic nephropathy, with long-term current use of insulin (HCC); Type 2 diabetes mellitus with diabetic polyneuropathy, with long-term current use of insulin (HCC) This order has been released to its destination. To be filled at: [facility] [place] [id number] - [facility] [phone] Portal to Registered [facility] Prior Authorization History for blood sugar diagnostic (ONETOUCH ULTRA TEST) test strip 3 months ago Canceled - Other Pharmacy Benefits KENNY VALADEZ - COPIED BAS PLAN ([employer]) Covered: Retail, Mail Order, Specialty Unknown: Long-Term Care Group name[facility] CERTIFIED ACT BIN: [id number] PCN: ADV : 1955 Legal sex: F Address: [address] [place] [address] documented in this encounter [facility] 03-14-2024 Telephone encounter Note Images from the original note were not included. Received notification from pharmacy/insurance that they will not cover 600 strips per 90 days. They will cover 450 strips for 75 days. We will need to change the RX. Waiting for Auth Details Contact the payer to obtain prior authorization. Prior auth initiated by: [facility] [place] [id number] - [facility] - [phone] Portal to Registered [facility] [phone] View History Notes Time User Attachment Your patients benefit plan only allows for quantity of 450 in 75 Days without a PA. Please respond with prescription changes or obtain Prior Auth. Call [phone] indicate Qty and Days Supply on ePA. 03/13/2024 11:53 AM Ce, [facility] Incoming Retail Pharmacy From [facility] Medication Being Authorized blood sugar diagnostic (ONETOUCH ULTRA TEST) test strip Use as instructed to test blood sugar 6 times daily; IDDM,11.21 Dispense: 600 Strip Refills: 3 Start: 11/19/2023 Class: Normal Diagnoses: Type 2 diabetes mellitus with diabetic nephropathy, with long-term current use of insulin (HCC); Type 2 diabetes mellitus with diabetic polyneuropathy, with long-term current use of insulin (HCC) This order has been released to its destination. To be filled at: [facility] Pharm[facility] - [place] [id number] - [address] [facility] - [phone] Portal to Registered [facility] Sites Prior Authorization History for blood sugar diagnostic (ONETOUCH ULTRA TEST) test strip 3 months ago Canceled - Other Pharmacy Benefits KENNY VALADEZ - COPIED BAS PLAN ([employer]) Covered: Retail, Mail Order, Specialty Unknown: Long-Term Care Group name: [facility] CERTIFIED ACT BIN: [id number] PCN: ADV : 1955 Legal sex: F Address: [address] [place] [address] [facility] 02-28-2024 Instructions Jody Sparks APRN.CNP - 02/28/2024 3:58 PM EDT 1. Continue current medications as prescribed. 2. Weigh yourself daily. Call me if your weight increases by 3-4 pounds in a 1-4 day period of time. 3. Continue low salt (2000 mg per day) diet. 4. Be as active as you are able. If you get tired, just stop and rest for a while. 5. Come back and see me on June 21, 2024 at 10:30 AM. If you have any question or concern, you can call me at [phone]. documented in this encounter [facility] 02-28-2024 History of Present illness Narrative Images from the original note were not included. Heart [facility] V[facility] OUTPATIENT VISIT DATE February 28, 2024 OUTPATIENT VISIT TYPE ESTABLISHED PRIMARY CARE PHYSICIAN: David Wynn DO CHIEF COMPLAINT: Patient presents with: Shortness of Breath HISTORY OF PRESENT ILLNESS: Kenny Valadez is a 68 year old female who presents today for a follow-up visit in the Heart Failure Clinic. Pt was last seen on 11/01/2023. At that visit, patient reported that she was feeling well. She was getting over having the flu. She reported some mild SOB with exertion that did resolve with brief rest period. She reported some issues with insomnia and felt this was due to Entresto and Coreg and the times she was taking the medications. It was discussed changing timing of taking medications. She reported she was not eating a low sodium diet. No changes were made to her medications at that visit. Today, patient reports that she has been feeling more SOB with exertion. She notes that she has gained about 10 lbs in the last 3 months. She notes that when she gains this much weight she does feel more SOB with exertion. She also notes some chest tightness that does resolve after some time. She denies associated diaphoresis or palpitations. Tightness does not radiate. She has not taken any SL NTG. She notes that resting will resolve SOB. She reports she is under a significant amount of stress with home and work life. She denies SOB at rest, PND, orthopnea, or the presence of edema. She is not following a low sodium diet. Mentions that she ate half a pizza a few days ago. She is taking her medications as prescribed. She is not currently exercising. Patient has had 0 hospitalizations and/or emergency room encounters in the last 12 months. SOB: Yes: with exertion Fatigue: Yes: increased Orthopnea:No, one roll pillow PND: No Edema:No Chest Pain:Yes: intermittently that resolves with rest Palpitations:No Dizziness/Lightheadedness:No Syncope:No Appetite: good Diet:regular Fluid Restriction: No Regular Exercise: No PAST CARDIAC HISTORY: Heart failure: systolic Ischemic, coronary artery disease and s/p PCI to LAD 04/08/2023. Her cardiac history is also significant for T2DM, HTN, hyperlipidemia, CAD, ICM. Device: NA. PAST MEDICAL HISTORY Diagnosis Date Arthritis Asthma CERVICAL DISC DISPLACMNT 02/03/2008 Chronic systolic heart failure (HCC) Coronary artery disease Degenerative disc disease Diabetes mellitus type 2, controlled (HCC) Herniated disc HLD (hyperlipidemia) HTN (hypertension) Ischemic cardiomyopathy Migraines BELA (obstructive sleep apnea) Pericardial effusion 04/13/2023 Thyroid nodule Unspecified essential hypertension Essential hypertension PAST SURGICAL HISTORY Procedure Laterality Date ADENOIDECTOMY PRIMARY <AGE 12 Adenoidectomy APPENDECTOMY W/ exploratory lap BACK SURGERY HX CHOLECYSTECTOMY REMV CATARACT EXTRACAP,INSERT LENS Bilateral 09/2023 TONSILLECTOMY PRIMARY/SECONDARY <AGE 12 Tonsillectomy VAGINAL HYSTERECTOMY UTERUS 250 GM/< Hysterectomy, vaginal Social History Tobacco Use Smoking status: Never Smokeless tobacco: Never Tobacco comments: Secondhand smoke exposure x 30 years (Father and 1st ) Substance Use Topics Alcohol use: Yes Comment: rare Drug use: No Family History Problem Relation Age of Onset Heart Mother Allergies Mother Arthritis Mother Asthma Mother Genitourinary () Mother bladder suspension in her 50's Hearing Loss Mother Hypertension Mother Lipids Mother Osteoporosis Mother Heart Father Cancer Father sarcoma Diabetes Father Hearing Loss Father Hypertension Father Lipids Father Stroke Father TIA'S Heart Maternal Grandmother Heart Maternal Grandfather Heart Paternal Grandmother Diabetes Paternal Grandmother other (Goiter) Paternal Grandmother Heart Paternal Grandfather Cancer Paternal Aunt I lost 11 aunts and uncles Cancer Paternal Uncle I lost 11 aunts and uncles Diabetes Paternal Aunt Diabetes Maternal Uncle Headache Daughter migraines ALLERGIES Allergen Reactions Animal Dander Itching Itchy watery eyes, sneezing Imitrex [Sumatripta* Other: See Comments Propoxyphene Other: See Comments Steroids [Betametha* CURRENT MEDICATIONS: Current Outpatient Medications Medication Sig Dispense Refill diphenhydrAMINE (BENADRYL ALLERGY) 12.5 mg/5 mL liquid ketotifen fumarate (ZADITOR) 0.025 % (0.035 %) ophthalmic solution Use 1 Drop in both eyes two times a day. 5 mL 2 cycloSPORINE (RESTASIS) 0.05 % ophthalmic emulsion Use 1 Drop in both eyes two times a day. 180 Each 0 NOVOLOG FLEXPEN U-100 INSULIN 100 unit/mL (3 mL) INJECT SUBCUTANEOUSLY BREAKFAST 20 UNITS, LUNCH 20 UNITS , DINNER 20 UNITS PLUS SCALE UP TO 70 UNITS DAILY 30 mL 11 carvedilol (COREG) 3.125 mg tablet take 1 tablet by mouth twice a day with food 180 tablet 3 insulin degludec (TRESIBA FLEXTOUCH U-200) 200 unit/mL (3 mL) injection Inject subcutaneously 60 units daily 9 mL 11 insulin needles, DISPOSABLE, (BD INSULIN PEN NEEDLE UF) 31 gauge x 5/16 Use 4 pen needles daily 400 Each 3 blood sugar diagnostic ([employer] GuidesTOUCH ULTRA TEST) test strip Use as instructed to test blood sugar 6 times daily; IDDM,11.21 600 Strip 3 sacubitril-valsartan (ENTRESTO) 24-26 mg tablet Take 1 tablet by mouth two times a day. 180 tablet 1 spironolactone (ALDACTONE) 25 mg tablet Take 0.5 tablets by mouth once daily. 45 tablet 3 Multivitamin capsule Take 1 capsule by mouth once daily. dapagliflozin propanediol (FARXIGA) 10 mg tablet Take 1 tablet by mouth daily with breakfast. 90 tablet 3 clopidogrel (PLAVIX) 75 mg tablet Take 1 tablet by mouth once daily. 90 tablet 3 fexofenadine (ANGELA) 180 mg tablet Take 180 mg by mouth once daily. nitroglycerin sublingual (NITROQUICK) 0.4 mg SL tablet Dissolve 1 tablet under the tongue every 5 minutes as needed for chest pain. 25 tablet 0 aspirin, enteric coated (ASPIRIN, ENTERIC COATED) 81 mg EC tablet Take 1 tablet by mouth once daily. semaglutide (OZEMPIC) 0.25 mg or 0.5 mg (2 mg/3 mL) pen Inject subcutaneously 0.25 mg weekly x 4 wks then increase to 0.5 mg weekly (Patient not taking: Reported on 02/28/2024) [address] (PROTONIX) 40 mg tablet Take 1 tablet by mouth once daily. (Patient not taking: Reported on 02/28/2024) 90 tablet 3 Current Facility-Administered Medications Medication Dose Route Frequency Provider Last Rate Last Admin perflutren lipid microspheres 1.3 mL in NaCl (PF) 0.9% 10 mL injection (DEFINITY) INTRAVENOUS DIRECTED PRN Yared Dodd MD sodium chloride 0.9 % (flush) 10 mL (BD POSIFLUSH) 10 mL INTRAVENOUS DIRECTED PRN Yared Dodd MD Functional Assessment: Does the patient have any concerns about safety in the home?No Does the patient have difficulty performing or completing routine daily living activities?No Is the patient at risk for falls?No REVIEW OF SYSTEMS: GENERAL: Positive for:Weight gain- 10 lbs in 3 months Negative for:Weight loss , Fever or Chills, Weakness, and Sleep difficulties HEENT: Positive for:Impaired Vision and Glasses , Negative for:Headache, Hearing Impairment, Ringing in Ears, Nosebleeds, Poor Dental Care, Bleeding Gums, and Dentures NECK: Negative for: Swelling, Pain, Stiffness RESPIRATORY: Positive for: Cough- at night and Shortness of breath- see HPI, Negative for:Blood in Sputum, Wheezing, and Apnea GASTROINTESTINAL: Negative for: Trouble swallowing, Heartburn, Change in bowel habits, Blood in stool, Dark black stools MUSCULOSKELETAL: Positive for: Muscle or joint pain , Negative for: Stiffness and Joint swelling NEUROLOGIC/PSYCHIATRIC: Positive for: Numbness, Tingling , Negative for: Weakness, Paralysis, Tremor, Nervousness or anxiety, Depressed mood, Memory loss SKIN: Negative for: Rash, Itching HEMATOLOGICAL/LYMPHATIC: Negative for: Easy bruising, Easy bleeding PHYSICAL EXAMINATION: BP 126/78 Pulse 99 Wt 88 kg (194 lb 0.1 oz) SpO2 95% BMI 30.85 kg/m General: no distress, overweight, ambulating independently, alert and oriented x 3, pleasant and conversational during examination. Skin: No clubbing, no cyanosis. Neck: Neck veins are not distended Lungs: Chest clear to auscultation Heart: Rhythm: regular rate and rhythm, Rate: tachycardia, S1: normal intensity, S2: normal intensity, S3: No, S4: No, no murmur Abdomen: Palpation normal, Bowel Sounds: Present Extremities: Normal exam of the extremities, no edema CARDIOVASCULAR MEDICINE TESTING: No Cardiovascular testing perfomed today. I have personally reviewed the Laboratory Testing and Echocardiogram. ECHO 06/21/2023: CONCLUSIONS: - Exam indication: CAD - The left ventricle is mildly dilated. There is mild concentric left ventricular hypertrophy. Left ventricular systolic function is moderately decreased. EF = 33 5% (2D 4-ch.) Indeterminate left ventricular diastolic dysfunction. - The right ventricle is normal in size. Right ventricular systolic function is mildly decreased. - There are no significant valvular abnormalities. - Definity unavailable. - The patient has not had a prior CC echocardiographic exam for comparison. No new or recents labs for review IMPRESSION: NYHA Functional Class: II Stage: C heart failure Mrs. Valadez is a 68 year old female who presents for follow up for chronic systolic heart failure. Pt reports that she has been feeling more SOB with exertion. She attributes this to a 10 lb weight gain over the past few months. She has a significant amount of stress in her life right now and is stress eating per her report. She has not exercised in some time. She has had some chest tightness that she, again, attributes this to weight gain. She has not had any other associated symptoms with chest tightness. On examination, she is euvolemic and her lungs are clear. Discussed strategies for weight loss. She is to start Ozempic and discussed that this will help with weight loss as well. She will continue on her current medications at current doses. She will follow up in HF Clinic in June or sooner PRN. PLAN AND RECOMMENDATIONS: 1. Chronic systolic congestive heart failure (HCC) - ICD9: 428.22, 428.0, ICD10: I50.22 (primary diagnosis) - Euvolemic on examination. EF-33% - Continue Spironolactone - Continue Coreg - Continue Entresto - Continue Farxiga - Daily weights. Call if weight increases by 3-4 lbs in 1-4 days period of time. - 2g low sodium diet - Activity as tolerated. Rest breaks as needed. - Follow up in HF Clinic in June or sooner PRN. 2. Cardiomyopathy, ischemic - ICD9: 414.8, ICD10: I25.5 - Stable at this time. - Continue current medications at current doses. 3. Primary hypertension - ICD9: 401.9, ICD10: I10 - Controlled - Continue current medications - Recommend home blood pressure monitoring, to bring results to next visit - Encouraged sodium restriction, DASH or Mediterranean diet - Recommend regular aerobic exercise Followup appointment with Dr. Dodd in May as scheduled. COUNSELING: We discussed the following non-pharmacological measures during this visit: Smoking and alcohol abstinence/cessation, if applicable Dietary and medication compliance Monitoring daily weights and blood pressures Exercise regimen When to call our office Heart Failure Education Booklet: given previously. Discussed red flags and when to call MD/CITY DISPATCH SUPERVISOR or go to ED. Medications reconciled at end of visit: yes I spent 38 minutes in this visit, with more than 50% of the time devoted to patient counseling. SIGNATURE: Jody Sparks APRN.CNP PATIENT NAME: Kenny Valadez DATE: February 28, 2024 TIME: 3:35 PM documented in this encounter [facility] 02-28-2024 Note HNO ID: [id number] Author: JODY SAPRKS APRN.CNP Service: ? Author Type: Nurse Practitioner Type: Progress Notes Filed: 02/28/2024 16:28 Note Text: Heart and Vascular [facility] OUTPATIENT VISIT DATE February 28, 2024 OUTPATIENT VISIT TYPE ESTABLISHED PRIMARY CARE PHYSICIAN: David Wynn DO CHIEF COMPLAINT: Patient presents with: Shortness of Breath HISTORY OF PRESENT ILLNESS: Kenny Valadez is a 68 year old female who presents today for a follow-up visit in the Heart Failure Clinic. Pt was last seen on 11/01/2023. At that visit, patient reported that she was feeling well. She was getting over having the flu. She reported some mild SOB with exertion that did resolve with brief rest period. She reported some issues with insomnia and felt this was due to Entresto and Coreg and the times she was taking the medications. It was discussed changing timing of taking medications. She reported she was not eating a low sodium diet. No changes were made to her medications at that visit. Today, patient reports that she has been feeling more SOB with exertion. She notes that she has gained about 10 lbs in the last 3 months. She notes that when she gains this much weight she does feel more SOB with exertion. She also notes some chest tightness that does resolve after some time. She denies associated diaphoresis or palpitations. Tightness does not radiate. She has not taken any SL NTG. She notes that resting will resolve SOB. She reports she is under a significant amount of stress with home and work life. She denies SOB at rest, PND, orthopnea, or the presence of edema. She is not following a low sodium diet. Mentions that she ate half a pizza a few days ago. She is taking her medications as prescribed. She is not currently exercising. Patient has had 0 hospitalizations and/or emergency room encounters in the last 12 months. SOB: Yes: with exertion Fatigue: Yes: increased Orthopnea:No, one roll pillow PND: No Edema:No Chest Pain:Yes: intermittently that resolves with rest Palpitations:No Dizziness/Lightheadedness:No Syncope:No Appetite: good Diet:regular Fluid Restriction: No Regular Exercise: No PAST CARDIAC HISTORY: Heart failure: systolic Ischemic, coronary artery disease and s/p PCI to LAD 04/08/2023. Her cardiac history is also significant for T2DM, HTN, hyperlipidemia, CAD, ICM. Device: NA. PAST MEDICAL HISTORY Diagnosis Date Arthritis Asthma CERVICAL DISC DISPLACMNT 02/03/2008 Chronic systolic heart failure (HCC) Coronary artery disease Degenerative disc disease Diabetes mellitus type 2, controlled (HCC) Herniated disc HLD (hyperlipidemia) HTN (hypertension) Ischemic cardiomyopathy Migraines BELA (obstructive sleep apnea) Pericardial effusion 04/13/2023 Thyroid nodule Unspecified essential hypertension Essential hypertension PAST SURGICAL HISTORY Procedure Laterality Date ADENOIDECTOMY PRIMARY Adenoidectomy APPENDECTOMY W/ exploratory lap BACK SURGERY HX CHOLECYSTECTOMY REMV CATARACT EXTRACAP,INSERT LENS Bilateral 09/2023 TONSILLECTOMY PRIMARY/SECONDARY Tonsillectomy VAGINAL HYSTERECTOMY UTERUS 250 GM/< Hysterectomy, vaginal Social History Tobacco Use Smoking status: Never Smokeless tobacco: Never Tobacco comments: Secondhand smoke exposure x 30 years (Father and 1st ) Substance Use Topics Alcohol use: Yes Comment: rare Drug use: No Family History Problem Relation Age of Onset Heart Mother Allergies Mother Arthritis Mother Asthma Mother Genitourinary () Mother bladder suspension in her 50's Hearing Loss Mother Hypertension Mother Lipids Mother Osteoporosis Mother Heart Father Cancer Father sarcoma Diabetes Father Hearing Loss Father Hypertension Father Lipids Father Stroke Father TIA'S Heart Maternal Grandmother Heart Maternal Grandfather Heart Paternal Grandmother Diabetes Paternal Grandmother other (Goiter) Paternal Grandmother Heart Paternal Grandfather Cancer Paternal Aunt I lost 11 aunts and uncles Cancer Paternal Uncle I lost 11 aunts and uncles Diabetes Paternal Aunt Diabetes Maternal Uncle Headache Daughter migraines ALLERGIES Allergen Reactions Animal Dander Itching Itchy watery eyes, sneezing Imitrex [Sumatripta* Other: See Comments Propoxyphene Other: See Comments Steroids [Betametha* CURRENT MEDICATIONS: Current Outpatient Medications Medication Sig Dispense Refill diphenhydrAMINE (BENADRYL ALLERGY) 12.5 mg/5 mL liquid ketotifen fumarate (ZADITOR) 0.025 % (0.035 %) ophthalmic solution Use 1 Drop in both eyes two times a day. 5 mL 2 cycloSPORINE (RESTASIS) 0.05 % ophthalmic emulsion Use 1 Drop in both eyes two times a day. 180 Each 0 NOVOLOG FLEXPEN U-100 INSULIN 100 unit/mL (3 mL) INJECT SUBCUTANEOUSLY BREAKFAST 20 UNITS, LUNCH 20 UNITS , DINNER 20 UNITS P (more content not included)... [facility] 02-23-2024 History of Present illness Narrative Assessment and Plan 1. Dry eye syndrome of both eyes 2. Pseudophakia -main complaint is blurry vision (clouds in vision) since cataract surgery (multifocal intraocular lens) [Sep 2023] -Subconjunctival hemorrhage left eye after cataract surgery - now with pain left eye (01/22) -also tearing 3. Other chronic allergic conjunctivitis of both eyes -cold compresses help 4. Type 2 diabetes mellitus with both eyes affected by mild nonproliferative retinopathy without macular edema, with long-term current use of insulin (HCC) -few microaneurysms right eye 5. Posterior vitreous detachment (PVD) both eyes 6. Floaters both eyes 7. Lattice left eye -contributing to symptoms? -Retina precautions reviewed. Return to clinic as soon as possible if increased floaters, flashes, or shadows. Plan: -Continue blood sugar and blood pressure control -pataday once a day both eyes -restasis twice a day both eyes -can try glasses for distance to see if help with -follow-up 2-3 months. May be a candidate for AST study? Intraocular lens exchange as last resort. Photorefractive keratectomy (PRK) candidate if glasses help? I have confirmed and edited as necessary the relevant ophthalmic history, ROS, and the neuro exam findings as obtained by others. I have seen and examined Kenny Valadez. I have discussed the case and the management of this patient's care with the Resident/Fellow, if applicable. I also have reviewed and agree with the assessment and plan as stated above and agree with all of its relevant components. Mesfin Perrin MD February 23, 2024 2:49 PM documented in this encounter [facility] 02-18-2024 Instructions Mary Kate Barber APRN.MANAGER NEWS - 02/18/2024 3:33 PM EDT Continue tresiba 60 units daily Continue farxiga Continue novolog Breakfast 20 units Lunch 20 units Dinner 20 units Plus add novolog sliding scale at meals if needed: If Blood Glucose (mg/dL) is < 150 Give 0 units 151-200 Give 1 unit 201-250 Give 2 units 251-300 Give 3 units 301-350 Give 4 units >351 Give 5 units Start Ozempic 0.25 mg once weekly x 4 wks then increase to 0.5 mg weekly Check sugars 3x per day. Follow up in 3-4 months Mary Kate Barber, MSN, SEWER MAINTENANCE SUPERVISOR, CITY DISPATCH SUPERVISOR-C, CDE Endocrinology [facility] Office [facility]/[address] [place] [address] Fax: documented in this encounter [facility] 02-18-2024 History of Present illness Narrative Reason for Consultation: DM Type 2 Referring Physician: Luli Perdomo MD [address] [facility] [id number] HISTORY OF PRESENT ILLNESS; Ms. Valadez is a 68 year old female presenting for follow up regarding DM Type 2. She was initially diagnosed with diabetes approx. 2000. She has been on insulin since at least age 55. LV 11/19/23 A1C today is 8.5 History of diabetes, HTN, HLD,nephropathy, peripheral neuropathy, obesity, allergies, thyroid nodule, BELA, NSTEMI s/p stent She is under the care of nephrology, Dr. Perdomo and cardiology Dr. Dodd. Rashel was cost prohibitive. Today states her sister is on ozempic and she wants to try it. Denies pancreatitis, medullary TC, gastroparesis Her current diabetes regimen is: Tresiba (u200 pen) 60 units daily at noon ---occ. Takes 80 units Farxiga 10 mg daily Novolog 20 units TID meals plus SS --not using SS due to lack of BG readings If Blood Glucose (mg/dL) is < 150 Give 0 units 151-200 Give 1 unit 201-250 Give 2 units 251-300 Give 3 units 301-350 Give 4 units >351 Give 5 units Previous DM medications: Glyburide actos janumet Glucotrol Metformin--stomach upset. Levemir--ineffective Trulicity --stomach issues. Regarding symptoms of hyperglycemia, she is not experiencing polyuria and polydipsia. Exercise:GURDEEP's Kenny is checking her blood glucose sporadically She did bring a logbook today for review: 249, 97, 188, 199, 192, 148, 344, 298- 8 readings in 14 days Hypoglycemia frequency: denies Hypoglycemia awareness: Yes Overall, the patient has no acute complaints at this time. HTN: Intolerant to KALIE ARB--valsartan--but only taking 1/2 dose due to headaches. HLD: crestor 10 mg daily PAST MEDICAL HISTORY Diagnosis Date Arthritis Asthma CERVICAL DISC DISPLACMNT 02/03/2008 Chronic systolic heart failure (HCC) Coronary artery disease Degenerative disc disease Diabetes mellitus type 2, controlled (HCC) Herniated disc HLD (hyperlipidemia) HTN (hypertension) Ischemic cardiomyopathy Migraines BELA (obstructive sleep apnea) Pericardial effusion 04/13/2023 Thyroid nodule Unspecified essential hypertension Essential hypertension PAST SURGICAL HISTORY Procedure Laterality Date ADENOIDECTOMY PRIMARY <AGE 12 Adenoidectomy APPENDECTOMY W/ exploratory lap BACK SURGERY HX CHOLECYSTECTOMY TONSILLECTOMY PRIMARY/SECONDARY <AGE 12 Tonsillectomy VAGINAL HYSTERECTOMY UTERUS 250 GM/< Hysterectomy, vaginal FAMILY HISTORY Problem Relation Age of Onset Heart Mother Allergies Mother Arthritis Mother Asthma Mother Genitourinary () Mother bladder suspension in her 50's Hearing Loss Mother Hypertension Mother Lipids Mother Osteoporosis Mother Heart Father Cancer Father sarcoma Diabetes Father Hearing Loss Father Hypertension Father Lipids Father Stroke Father TIA'S Heart Maternal Grandmother Heart Maternal Grandfather Heart Paternal Grandmother Diabetes Paternal Grandmother other (Goiter) Paternal Grandmother Heart Paternal Grandfather Cancer Paternal Aunt I lost 11 aunts and uncles Cancer Paternal Uncle I lost 11 aunts and uncles Diabetes Paternal Aunt Diabetes Maternal Uncle Headache Daughter migraines Social History Tobacco Use Smoking status: Never Smokeless tobacco: Never Tobacco comments: Secondhand smoke exposure x 30 years (Father and 1st ) Substance Use Topics Alcohol use: Yes Comment: rare Drug use: No Current Outpatient Medications Medication Sig Dispense Refill carvedilol (COREG) 3.125 mg tablet take 1 tablet by mouth twice a day with food 180 tablet 3 insulin degludec (TRESIBA FLEXTOUCH U-200) 200 unit/mL (3 mL) injection Inject subcutaneously 60 units daily 9 mL 11 NOVOLOG FLEXPEN U-100 INSULIN 100 unit/mL (3 mL) INJECT SUBCUTANEOUSLY BREAKFAST 18 UNITS, LUNCH 18 UNITS , DINNER 18 UNITS PLUS SCALE UP TO 70 UNITS DAILY 30 mL 11 insulin needles, DISPOSABLE, (BD INSULIN PEN NEEDLE UF) 31 gauge x /16 Use 4 pen needles daily 400 Each 3 blood sugar diagnostic (INcubesUCH ULTRA TEST) test strip Use as instructed to test blood sugar 6 times daily; IDDM,11.21 600 Strip 3 sacubitril-valsartan (ENTRESTO) 24-26 mg tablet Take 1 tablet by mouth two times a day. 180 tablet 1 spironolactone (ALDACTONE) 25 mg tablet Take 0.5 tablets by mouth once daily. 45 tablet 3 Multivitamin capsule Take 1 capsule by mouth once daily. dapagliflozin propanediol (FARXIGA) 10 mg tablet Take 1 tablet by mouth daily with breakfast. [address] (PROTONIX) 40 mg tablet Take 1 tablet by mouth once daily. 90 tablet 3 clopidogrel (PLAVIX) 75 mg tablet Take 1 tablet by mouth once daily. 90 tablet 3 fexofenadine (ANGELA) 180 mg tablet Take 180 mg by mouth once daily. nitroglycerin sublingual (NITROQUICK) 0.4 mg SL tablet Dissolve 1 tablet under the tongue every 5 minutes as needed for chest pain. 25 tablet 0 aspirin, enteric coated (ASPIRIN, ENTERIC COATED) 81 mg EC tablet Take 1 tablet by mouth once daily. Current Facility-Administered Medications Medication Dose Route Frequency Provider Last Rate Last Admin perflutren lipid microspheres 1.3 mL in NaCl (PF) 0.9% 10 mL injection (DEFINITY) INTRAVENOUS DIRECTED PRYared Gonzalez MD sodium chloride 0.9 % (flush) 10 mL (BD POSIFLUSH) 10 mL INTRAVENOUS DIRECTED PRN Yared Dodd MD Allergies As of Date: 02/18/2024 Allergen Noted Reaction ANIMAL DANDER 04/08/2023 Itching IMITREX [SUMATRIPTAN] 04/07/2023 Other: See Comments STEROIDS [BETAMETHASONE DIPROPION*01/31/2008 Fully Assessed 02/18/2024 REVIEW OF SYSTEMS: Answers submitted by the patient for this visit: Core Review of Systems (Submitted on 02/17/2024) Fever : No Night sweats: No Recent unintentional weight change: Yes Nasal Congestion: Yes Hearing Loss: No Vision Disturbance: Yes A cough: Yes Difficulty Breathing?: Yes Chest pain: Yes Irregular heartbeat: No Leg Swelling: No Nausea: No Diarrhea: No Black tarry stools: No Difficulty Urinating?: No Awaken at Night More Than Once to Urinate?: Yes Joint pain or stiffness: Yes Muscle aches: Yes Leg or Foot Discomfort at Night?: No A rash: Yes Dizziness: No Headaches: Yes Memory Loss: No Seizures: No PHYSICAL EXAM: BP 130/86 Pulse 78 Wt 88.7 kg (195 lb 8.8 oz) SpO2 99% BMI 31.09 kg/m2 Physical Exam Constitutional: Appearance: Normal appearance. She is obese. Cardiovascular: Rate and Rhythm: Normal rate and regular rhythm. Pulmonary: Effort: Pulmonary effort is normal. Breath sounds: Normal breath sounds. Skin: General: Skin is warm and dry. Neurological: Mental Status: She is alert and oriented to person, place, and time. Psychiatric: Mood and Affect: Mood normal. Behavior: Behavior normal. DATA: Creatinine Date Value Ref Range Status 09/28/2023 0.97 (H) 0.58 - 0.96 mg/dL Final Hemoglobin A1C (%) Date Value 04/15/2012 10.8 Hemoglobin A1C (POCT) (%) Date Value 11/19/2023 8.1 ) No components found for: URINEALBUMIN Cholesterol, Total (mg/dL) Date Value 01/22/2024 159 HDL Cholesterol (mg/dL) Date Value 01/22/2024 29 LDL Cholesterol (mg/dL) Date Value 01/22/2024 90 LDL Cholesterol, Nonfasting (mg/dL) Date Value 04/07/2023 120 Triglyceride (mg/dL) Date Value 01/22/2024 199 IMPRESSION: Ms. Valadez is a 68 year old female here for evaluation of DM Type 2 complicated by hypertension, hyperlipidemia, peripheral neuropathy and nephropathy RECOMMENDATIONS (E11.21, Z79.4) Type 2 diabetes mellitus with diabetic nephropathy, with long-term current use of insulin ([facility]) (primary encounter diagnosis) Comment: Glycemic control is trending higher. Will add Ozempic. Reviewed risks and benefits. *Patient agrees to start GLP-1 therapy. Patient has no history of pancreatitis and no personal or family history of medullary thyroid cancer/c-cell hyperplasia. We discussed the reported risk of medullary thyroid cancer/c-cell hyperplasia noted in rats who received clinically relevant doses of GLP-1. Risk of medullary thyroid cancer/c-cell hyperplasia has yet to be demonstrated in humans, especially in the current pharmacologic doses approved for use. Potential for weight loss with improved glycemic control warrant trial of medication. Patient made inforrmed decision to try the medication. Medication has been fully explained to patient, including risk of C-cell hyperplasia in the thyroid gland occurring in mice/rats, injection technique, risk of hypoglycemia, side effects including nausea/vomiting. Urine protein is being monitored. She is on an ARB and SGLT2 Plan: semaglutide (OZEMPIC) 0.25 mg or 0.5 mg (2 mg/3 mL) pen, HEMOGLOBIN A1C (POC), NOVOLOG FLEXPEN U-100 INSULIN 100 unit/mL (3 mL) Continue tresiba 60 units daily Continue farxiga Continue novolog Breakfast 20 units Lunch 20 units Dinner 20 units Plus add novolog sliding scale at meals if needed: If Blood Glucose (mg/dL) is < 150 Give 0 units 151-200 Give 1 unit 201-250 Give 2 units 251-300 Give 3 units 301-350 Give 4 units >351 Give 5 units Start Ozempic 0.25 mg once weekly x 4 wks then increase to 0.5 mg weekly Check sugars 3x per day. Follow up in 3-4 months (E11.42, Z79.4) Type 2 diabetes mellitus with diabetic polyneuropathy, with long-term current use of insulin ([facility]) Comment: Glycemic control is trending higher. Will add Ozempic. Reviewed risks and benefits. Neuropathy is being monitored and is stable. Repeat foot exam at follow up Plan: semaglutide (OZEMPIC) 0.25 mg or 0.5 mg (2 mg/3 mL) pen, HEMOGLOBIN A1C (POC), NOVOLOG FLEXPEN U-100 INSULIN 100 unit/mL (3 mL) Continue tresiba 60 units daily Continue farxiga Continue novolog Breakfast 20 units Lunch 20 units Dinner 20 units Plus add novolog sliding scale at meals if needed: If Blood Glucose (mg/dL) is < 150 Give 0 units 151-200 Give 1 unit 201-250 Give 2 units 251-300 Give 3 units 301-350 Give 4 units >351 Give 5 units Start Ozempic 0.25 mg once weekly x 4 wks then increase to 0.5 mg weekly Check sugars 3x per day. Follow up in 3-4 months (E11.649) Hypoglycemia due to type 2 diabetes mellitus (HCC) Comment/Plan: CGM cost prohibitive (E04.1) Nontoxic single thyroid nodule Comment/Plan: single subcentimeter nodule of 0.8 cm (8mm) She has been euthyroid. Managed per PCP (I10) Essential hypertension Comment/Plan: Managed per PCP/cardiology (E78.2) Mixed hyperlipidemia Comment/Plan: s/p NSTEMI with stent; Managed per PCP/cardiology (E66.9) Obesity, Class I, BMI 30-34.9 Comment: Body mass index is 31.09 kg/m . Plan: Encouraged increase dietary and exercise efforts as able Medical Decision Making: Level: 4 - Moderate Mary Kate Barber, MSN, SEWER MAINTENANCE SUPERVISOR, CITY DISPATCH SUPERVISOR-C, CDE Endocrinology [facility] Medical Office [facility]/[address], [address] [place] [address] Fax: documented in this encounter [facility] 01-19-2024 Miscellaneous Notes Pharmacy electronically requests the following refill(s) Requested Prescriptions Pending Prescriptions Disp Refills carvedilol (COREG) 3.125 mg tablet [Pharmacy Med Name: CARVEDILOL 3.125 MG TABLET] 180 tablet 3 Sig: take 1 tablet by mouth twice a day with food Loan Obrien RN documented in this encounter [facility] 01-11-2024 Miscellaneous Notes Trying to get readings from patient. documented in this encounter [facility] 10-18-2023 Instructions Yared Dodd MD - 10/18/2023 1:43 PM EST We are starting you on Zetia (Ezetimibi) 10 mg once per day Repeat fasting blood work in January documented in this encounter [facility] 10-18-2023 History of Present illness Narrative Images from the original note were not included. [facility] SE[facility] Cardiology Christine ([facility] (POB)) [address] [facility] [id number] OUTPATIENT VISIT DATE 10/18/2023 PRIMARY CARE PHYSICIAN: David Wynn [facility] [place] [address] HISTORY OF PRESENT ILLNESS: Ms. Valadez is a 68 year old woman has a history of coronary artery disease and anterior wall myocardial infarction in March 2023 when she presented to hospital with atypical back pain and was found to have evidence of ST elevation underwent emergent cardiac catheterization. She has a resulting ischemic cardiomyopathy ejection fraction of 30%, chronic systolic congestive heart failure, and dyslipidemia. She has a history of diabetes which is insulin requiring. Went to the office for routine follow-up. Overall, she has been doing well from a functional standpoint. 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 She has not had symptoms of chest pain or pressure. She has not had symptoms concerning for congestive heart failure including PND, orthopnea, or lower extremity edema. PAST MEDICAL HISTORY Diagnosis Date Arthritis Asthma CERVICAL DISC DISPLACMNT 02/03/2008 Chronic systolic heart failure (HCC) Coronary artery disease Degenerative disc disease Diabetes mellitus type 2, controlled (HCC) Herniated disc HLD (hyperlipidemia) HTN (hypertension) Ischemic cardiomyopathy Migraines BELA (obstructive sleep apnea) Pericardial effusion 04/13/2023 Thyroid nodule Unspecified essential hypertension Essential hypertension PAST SURGICAL HISTORY Procedure Laterality Date ADENOIDECTOMY PRIMARY <AGE 12 Adenoidectomy APPENDECTOMY W/ exploratory lap BACK SURGERY HX CHOLECYSTECTOMY TONSILLECTOMY PRIMARY/SECONDARY <AGE 12 Tonsillectomy VAGINAL HYSTERECTOMY UTERUS 250 GM/< Hysterectomy, vaginal SOCIAL HISTORY Social History Tobacco Use Smoking status: Never Smokeless tobacco: Never Tobacco comments: Secondhand smoke exposure x 30 years (Father and 1st ) Substance Use Topics Alcohol use: Yes Comment: rare Drug use: No FAMILY HISTORY Problem Relation Age of Onset Heart Mother Allergies Mother Arthritis Mother Asthma Mother Genitourinary () Mother bladder suspension in her 50's Hearing Loss Mother Hypertension Mother Lipids Mother Osteoporosis Mother Heart Father Cancer Father sarcoma Diabetes Father Hearing Loss Father Hypertension Father Lipids Father Stroke Father TIA'S Heart Maternal Grandmother Heart Maternal Grandfather Heart Paternal Grandmother Diabetes Paternal Grandmother other (Goiter) Paternal Grandmother Heart Paternal Grandfather Cancer Paternal Aunt I lost 11 aunts and uncles Cancer Paternal Uncle I lost 11 aunts and uncles Diabetes Paternal Aunt Diabetes Maternal Uncle Headache Daughter migraines ALLERGIES: ALLERGIES Allergen Reactions Animal Dander Itching Itchy watery eyes, sneezing Imitrex [Sumatripta* Other: See Comments Steroids [Betametha* MEDICATIONS: Multivitamin capsule^Take 1 capsule by mouth once daily.^Disp: ^Rfl: insulin needles, DISPOSABLE, (BD INSULIN PEN NEEDLE UF) 31 gauge x 5/16^Use 4 pen needles daily^Disp: 400 Each^Rfl: 3 blood sugar diagnostic (INcubesUCH ULTRA TEST) test strip^Use as instructed to test blood sugar 6 times daily^Disp: 600 Strip^Rfl: 3 dapagliflozin propanediol (FARXIGA) 10 mg tablet^Take 1 tablet by mouth daily with breakfast.^Disp: 90 tablet^Rfl: 3 insulin aspart U-100 (NOVOLOG FLEXPEN U-100 INSULIN) 100 unit/mL (3 mL)^Inject subcutaneously TID meals per SS up to 15 units daily^Disp: 15 mL^Rfl: 11 insulin degludec (TRESIBA FLEXTOUCH U-200) 200 unit/mL (3 mL) injection^Inject subcutaneously 80 units daily^Disp: 12 mL^Rfl: [address] (PROTONIX) 40 mg tablet^Take 1 tablet by mouth once daily.^Disp: 90 tablet^Rfl: 3 carvedilol (COREG) 3.125 mg tablet^Take 1 tablet by mouth twice daily with meals.^Disp: 60 tablet^Rfl: 9 clopidogrel (PLAVIX) 75 mg tablet^Take 1 tablet by mouth once daily.^Disp: 90 tablet^Rfl: 3 fexofenadine (ANGELA) 180 mg tablet^Take 180 mg by mouth once daily.^Disp: ^Rfl: nitroglycerin sublingual (NITROQUICK) 0.4 mg SL tablet^Dissolve 1 tablet under the tongue every 5 minutes as needed for chest pain.^Disp: 25 tablet^Rfl: 0 aspirin, enteric coated (ASPIRIN, ENTERIC COATED) 81 mg EC tablet^Take 1 tablet by mouth once daily.^Disp: ^Rfl: ezetimibe (ZETIA) 10 mg tablet^Take 1 tablet by mouth once daily.^Disp: 90 tablet^Rfl: 3 sacubitril-valsartan (ENTRESTO) 24-26 mg tablet^Take 1 tablet by mouth two times a day.^Disp: 180 tablet^Rfl: 1 spironolactone (ALDACTONE) 25 mg tablet^Take 0.5 tablets by mouth once daily.^Disp: 45 tablet^Rfl: 3 flash glucose scanning reader ([employer] RASHEL 3 READER)^Use one sensor every 14 days, IDDM, E 11.21^Disp: 2 Each^Rfl: 11 REVIEW OF SYSTEMS: Review of Systems Constitutional: Positive for malaise/fatigue. Negative for chills, fever and weight loss. HENT: Negative for hearing loss and sore throat. Eyes: Negative for blurred vision and double vision. Respiratory: Positive for shortness of breath. Cardiovascular: Negative. Gastrointestinal: Negative. Genitourinary: Negative for dysuria, frequency, hematuria and urgency. Musculoskeletal: Positive for myalgias. Skin: Negative. Neurological: Negative for dizziness, seizures, loss of consciousness, weakness and headaches. Endo/Heme/Allergies: Negative for environmental allergies. Does not bruise/bleed easily. Psychiatric/Behavioral: Negative for depression. PHYSICAL EXAMINATION: BP 110/80 Pulse 94 Wt 190 lb (86.2kg) SpO2 99% General: Pleasant woman sitting appears comfortable no apparent distress she is alert and oriented x 3 HEENT: Carotid upstrokes are brisk bilateral without bruits no JVD appreciated. Pulmonary: Lungs are clear no rales, wheezes, rhonchi Cardiovascular: Normal S1, S2 with regular rate and rhythm. No murmurs, rubs, or gallops Extremities: Warm, well-perfused, no lower extremity edema. CARDIOVASCULAR MEDICINE TESTING: ECG in the office 06/22/2023: Normal sinus rhythm with normal axis and intervals. Poor R wave progression anteriorly with Q waves through V1-V6. Cardiac Catheterization/PCI 04/08/2023: Post- Procedure Diagnosis:Occluded mid LAD otherwise mild to moderate diffuse coronary artery disease right coronary dominant system. Percutaneous core intervention with drug-eluting stent placed from the proximal to mid LAD using IVUS assistance. Abnormal left ventricular function with distal anteroapical wall hypokinesis with an EF 35-40% Hemodynamics: LVEDP: 26 mmHg LV - AORTA: No gradient. Coronary Angiography: Left Main: Mild diffuse disease Left Anterior Descending: Moderate to large caliber vessel. The mid vessel is occluded just past the first septal adjunct professor of voice. The proximal vessel has mild to moderate diffuse calcified disease on IVUS evaluation. Circumflex: Large-caliber nondominant vessel. The proximal vessel has mild to moderate diffuse disease with a large first obtuse marginal branch with mild disease. Second obtuse marginal branch has a proximal 50-60% stenosis. Right Coronary Artery: Moderate to large caliber dominant vessel with mild to moderate diffuse disease Collaterals: None Percutaneous coronary intervention: Occlusion of the mid LAD treated with balloon angioplasty and drug-eluting stent placement. A 3.0 x 48 mm Synergy stent was deployed in the lesion and postdilated 3.5 mm distally and 4.2 mm proximally with a good angiographic result. Intravascular ultrasound was performed prior to stenting and post stent for adequacy of stent deployment and complexity of disease. The mid to distal LAD has severe diffuse disease postintervention. LV Gram: LVEF: 35-40% Wall Motion: Distal anterior and apical wall hypokinesis Echocardiogram 06/21/2023: - Exam indication: CAD - The left ventricle is mildly dilated. There is mild concentric left ventricular hypertrophy. Left ventricular systolic function is moderately decreased. EF = 33 5% (2D 4-ch.) Indeterminate left ventricular diastolic dysfunction. - The right ventricle is normal in size. Right ventricular systolic function is mildly decreased. - There are no significant valvular abnormalities. - Definity unavailable. - The patient has not had a prior CC echocardiographic exam for comparison. Echocardiogram 04/13/2023: - Technically difficult exam due to body habitus and suboptimal positioning. - Exam indication: NSTEMI - The left ventricle is normal in size. Left ventricular systolic function is moderately decreased. EF = 34 5% (2D biplane) Definity contrast used for endocardial border detection. Left ventricular diastolic function was not evaluated. Wall motion abnormalities as detailed above - The right ventricle is normal in size. Right ventricular systolic function is normal. - Exam was compared with the prior CC echocardiographic exam performed on 04/09/2023. Pericardial effusion has improved, only trivial today adjacent to RV. Otherwise no significant change Echocardiogram 04/08/2023: CONCLUSIONS: - Technically difficult exam due to body habitus and suboptimal positioning. - Exam indication: Chest Pain - The left ventricle is normal in size. Left ventricular systolic function is severely decreased. EF = 28 5% (2D 4-ch.) Definity contrast used for endocardial border detection. Left ventricular diastolic function was not evaluated. - The right ventricle is small. Right ventricular systolic function is normal. - The patient has not had a prior CC echocardiographic exam for comparison. IMPRESSION: Ms. Valadez is a 68 year old with a history of diabetes insulin requiring who was recently admitted to the hospital with chest pain and evidence of ST elevation myocardial infarction with drug-eluting stent placement to the LAD. She has a resulting ischemic cardiomyopathy with ejection fraction of 30%, chronic systolic congestive heart failure. She is also treated for dyslipidemia. She presents to the office for follow-up. PLAN AND RECOMMENDATIONS: 1. 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) - ICD9: 414.01, 413.9, ICD10: I25.118 (primary diagnosis) Patient is doing well without symptoms concerning for angina. Continue current medical therapy and risk factor modification 2. Cardiomyopathy, ischemic - ICD9: 414.8, ICD10: I25.5 Ejection fraction 30-35%. She is maintained on Entresto and spironolactone. - SACUBITRIL 24 MG-VALSARTAN 26 MG TABLET - SPIRONOLACTONE 25 MG TABLET 3. Chronic systolic congestive heart failure (HCC) - ICD9: 428.22, 428.0, ICD10: I50.22 Patient has had about a 4 to 5 pound weight gain this week. I offered to give her Lasix to use as needed. However, she would like to follow a low-sodium diet. She believes the spironolactone will reduce her weight over the next few days. If she has no improvement she will contact the office. - SACUBITRIL 24 MG-VALSARTAN 26 MG TABLET 4. Essential hypertension - ICD9: 401.9, ICD10: I10 Patient mostly has problems with low blood pressure due to medications. 5. Mixed hyperlipidemia - ICD9: 272.2, ICD10: E78.2 Patient was intolerant to pravastatin. She is also had prior intolerance to atorvastatin and rosuvastatin. We will attempt Zetia 10 mg daily. - EZETIMIBE 10 MG TABLET - LIPID PANEL BASIC 6. Statin intolerance - ICD9: 995.27, ICD10: Z78.9 - EZETIMIBE 10 MG TABLET Yared Dodd MD documented in this encounter [facility] 09-29-2023 Miscellaneous Notes Scheduled for 10/18 at 1:20 in cancellation slot. Call to patient. She states that she did not want to cancel the 10/04 appt yet. She requested that her court date be changed. She has not heard back from them yet. Will keep appt 10/18 scheduled. Pt will call back if court date is changed and we will see if we can possibly work her in on 10/04. Charisse Linda MA Attempted to call the patient regarding rescheduling her appointment with Dr. Dodd. Please offer appointment on October 18 and ok to double book the patient. Loan Obrien RN Patient has an appointment 11/01/23 in with [place] [facility]. Next available appointment with Dr. Dodd is 12/13/23. Patient added to waiting list. Loan Obrien RN Can we please see if we can switch appts with another follow up with Dr. Dodd in early October? That would be an option if pt and another pt are ok with that? Thank you! Judie Grant RN Patient needs to cancel 10/04/[address] to [address] for [address] this day next opening was May 2024 she tried to r/s in [place] and they routed her to [place]. Please advise if patient could be seen sooner than May 2024 and cancel 10/04 appointment. documented in this encounter [facility] 08-23-2023 Instructions Jody Sparks APRN.CNP - 08/23/2023 3:56 PM EDT 1. Continue current medications as prescribed. 2. Weigh yourself daily. Call me if your weight increases by 3-4 pounds in a 1-4 day period of time. 3. Continue low salt (2000 mg per day) diet. 4. Be as active as you are able. If you get tired, just stop and rest for a while. 5. Come back and see me on November 01, 2023 at 3:30 PM. If you have any question or concern, you can call me at [phone]. documented in this encounter [facility] 08-23-2023 History of Present illness Narrative Images from the original note were not included. Heart [facility] V[facility] OUTPATIENT VISIT DATE August 23, 2023 OUTPATIENT VISIT TYPE ESTABLISHED PRIMARY CARE PHYSICIAN: David Wynn DO CHIEF COMPLAINT: Patient presents with: Follow Up HISTORY OF PRESENT ILLNESS: Kenny Valadez is a 68 year old female who presents today for a follow-up visit in the Heart Failure Clinic. Pt was last seen on 06/22/2023 by Krystal Brown CNP. At that visit, patient reported that she was participating in cardiac rehab three times weekly. She noted she was still having some SOB with exertion and chest discomfort. She reported a 4 lb weight gain and was not following a low sodium diet as instructed. She reported that she was eating TV dinners for meals. Pt was instructed to temporarily increase Spironolactone to 12.5 mg PO BID then, return to 12.5 mg PO daily. Pt did follow up with Dr. Dodd the same day. It was noted that there was no improvement in her LV function. She was to continue Coreg and Entresto doses. He noted that adding Lasix may be considered. Today, patient reports that she has been feeling better since last visit. She notes that chest discomfort that she was having in June has subsided. She states that she graduated from Cardiac Rehabilitation last week. She took a week off from exercise and started back up yesterday. She notes that she has had a 4 lb weight gain with not engaging in exercise and has not been eating the healthiest of foods lately. She reports mild SOB with exertion occasionally, does rm with rest. She denies PND, orthopnea, or the presence of edema. She is taking her medications as prescribed. She is not checking blood pressure at home. States HR has been in the 90s-100s. Today it is in the 80s on examination. She notes that she does not sleep well at night due to insomnia. Patient has had 1 hospitalizations and/or emergency room encounters in the last 12 months. Most recent hospitalization was from 04/08/2023 to 04/13/2023 for NSTEMI-s/p PCI. SOB: Yes: mild with moderate exertion. Fatigue: Yes: at baseline Orthopnea:No PND: No Edema:No Chest Pain:No (0/10) Palpitations:No Dizziness/Lightheadedness:No Syncope:No Appetite: good Diet:attempting low sodium, diabetic Fluid Restriction: No Regular Exercise: Yes: walks on treadmill most days of the week PAST CARDIAC HISTORY: Heart failure: systolic Ischemic, coronary artery disease and s/p PCI to LAD 04/08/2023. Her cardiac history is also significant for T2DM, HTN, hyperlipidemia, CAD, ICM. Device: NA. PAST MEDICAL HISTORY Diagnosis Date Arthritis Asthma CERVICAL DISC DISPLACMNT 02/03/2008 Chronic systolic heart failure (HCC) Coronary artery disease Degenerative disc disease Diabetes mellitus type 2, controlled (HCC) Herniated disc HLD (hyperlipidemia) HTN (hypertension) Ischemic cardiomyopathy Migraines BELA (obstructive sleep apnea) Pericardial effusion 04/13/2023 Thyroid nodule Unspecified essential hypertension Essential hypertension PAST SURGICAL HISTORY Procedure Laterality Date ADENOIDECTOMY PRIMARY <AGE 12 Adenoidectomy APPENDECTOMY W/ exploratory lap BACK SURGERY HX CHOLECYSTECTOMY TONSILLECTOMY PRIMARY/SECONDARY <AGE 12 Tonsillectomy VAGINAL HYSTERECTOMY UTERUS 250 GM/< Hysterectomy, vaginal Social History Tobacco Use Smoking status: Never Smokeless tobacco: Never Tobacco comments: Secondhand smoke exposure x 30 years (Father and 1st ) Substance Use Topics Alcohol use: Yes Comment: rare Drug use: No Family History Problem Relation Age of Onset Heart Mother Allergies Mother Arthritis Mother Asthma Mother Genitourinary () Mother bladder suspension in her 50's Hearing Loss Mother Hypertension Mother Lipids Mother Osteoporosis Mother Heart Father Cancer Father sarcoma Diabetes Father Hearing Loss Father Hypertension Father Lipids Father Stroke Father TIA'S Heart Maternal Grandmother Heart Maternal Grandfather Heart Paternal Grandmother Diabetes Paternal Grandmother other (Goiter) Paternal Grandmother Heart Paternal Grandfather Cancer Paternal Aunt I lost 11 aunts and uncles Cancer Paternal Uncle I lost 11 aunts and uncles Diabetes Paternal Aunt Diabetes Maternal Uncle Headache Daughter migraines ALLERGIES Allergen Reactions Animal Dander Itching Itchy watery eyes, sneezing Imitrex [Sumatripta* Other: See Comments Steroids [Betametha* CURRENT MEDICATIONS: Current Outpatient Medications Medication Sig Dispense Refill Multivitamin capsule Take 1 capsule by mouth once daily. insulin needles, DISPOSABLE, (BD INSULIN PEN NEEDLE UF) 31 gauge x 5/16 Use 4 pen needles daily 400 Each 3 blood sugar diagnostic (ONETOUCH ULTRA TEST) test strip Use as instructed to test blood sugar 6 times daily 600 Strip 3 flash glucose scanning reader (FREESTYLE RASHEL 3 READER) Use one sensor every 14 days, IDDM, E 11.21 2 Each 11 dapagliflozin propanediol (FARXIGA) 10 mg tablet Take 1 tablet by mouth daily with breakfast. 90 tablet 3 insulin aspart U-100 (NOVOLOG FLEXPEN U-100 INSULIN) 100 unit/mL (3 mL) Inject subcutaneously TID meals per SS up to 15 units daily 15 mL 11 insulin degludec (TRESIBA FLEXTOUCH U-200) 200 unit/mL (3 mL) injection Inject subcutaneously 80 units daily 12 mL 3 pravastatin (PRAVACHOL) 20 mg tablet Take 1 tablet by mouth daily at bedtime. [address] (PROTONIX) 40 mg tablet Take 1 tablet by mouth once daily. 90 tablet 3 carvedilol (COREG) 3.125 mg tablet Take 1 tablet by mouth twice daily with meals. 60 tablet 9 clopidogrel (PLAVIX) 75 mg tablet Take 1 tablet by mouth once daily. 90 tablet 3 sacubitril-valsartan (ENTRESTO) 24-26 mg tablet Take 1 tablet by mouth twice daily. 180 tablet 1 spironolactone (ALDACTONE) 25 mg tablet Take 0.5 tablets by mouth once daily. 45 tablet 3 fexofenadine (ANGELA) 180 mg tablet Take 180 mg by mouth once daily. nitroglycerin sublingual (NITROQUICK) 0.4 mg SL tablet Dissolve 1 tablet under the tongue every 5 minutes as needed for chest pain. 25 tablet 0 aspirin, enteric coated (ASPIRIN, ENTERIC COATED) 81 mg EC tablet Take 1 tablet by mouth once daily. Current Facility-Administered Medications Medication Dose Route Frequency Provider Last Rate Last Admin perflutren lipid microspheres 1.3 mL in NaCl (PF) 0.9% 10 mL injection (DEFINITY) INTRAVENOUS DIRECTED PRN Yared Dodd MD sodium chloride 0.9 % (flush) 10 mL (BD POSIFLUSH) 10 mL INTRAVENOUS DIRECTED PRN Yared Dodd MD Functional Assessment: Does the patient have any concerns about safety in the home?No Does the patient have difficulty performing or completing routine daily living activities?No Is the patient at risk for falls?No REVIEW OF SYSTEMS: GENERAL: Positive for:Weight gain and Sleep difficulties Negative for:Weight loss , Fever or Chills, and Weakness HEENT: Positive for:Impaired Vision and Glasses , Negative for:Headache, Hearing Impairment, Ringing in Ears, Nosebleeds, Poor Dental Care, Bleeding Gums, and Dentures NECK: Negative for: Swelling, Pain, Stiffness RESPIRATORY: Positive for: Shortness of breath- See HPI , Negative for:Cough, Blood in Sputum, Wheezing, and Apnea GASTROINTESTINAL: Negative for: Trouble swallowing, Heartburn, Change in bowel habits, Blood in stool, Dark black stools MUSCULOSKELETAL: Positive for: Muscle or joint pain- chronic arthritis , Negative for: Stiffness and Joint swelling NEUROLOGIC/PSYCHIATRIC: Negative for: Weakness, Paralysis, Numbness, Tingling, Tremor, Nervousness or anxiety, Depressed mood, Memory loss SKIN: Negative for: Rash, Itching HEMATOLOGICAL/LYMPHATIC: Negative for: Easy bruising, Easy bleeding PHYSICAL EXAMINATION: BP 143/71 Pulse 88 Wt 85.7 kg (189 lb) SpO2 96% BMI 30.05 kg/m General: no distress, overweight, ambulating independently, alert and oriented x 3, pleasant and conversational during examination. Skin: No clubbing, no cyanosis. Neck: Neck veins are not distended Lungs: Chest clear to auscultation Heart: Rhythm: regular rate and rhythm, Rate: normal, S1: normal intensity, S2: normal intensity, S3: No, S4: No, no murmur Abdomen: Palpation normal, Bowel Sounds: Present Extremities: Normal exam of the extremities, no edema Peripheral Pulses: Normal CARDIOVASCULAR MEDICINE TESTING: Laboratory Testing: CMP and NTpBNP- to be drawn prior to visit with Dr. Dodd in September I have personally reviewed the Laboratory Testing and Echocardiogram. ECHO: 06/21/2023: CONCLUSIONS: - Exam indication: CAD - The left ventricle is mildly dilated. There is mild concentric left ventricular hypertrophy. Left ventricular systolic function is moderately decreased. EF = 33 5% (2D 4-ch.) Indeterminate left ventricular diastolic dysfunction. - The right ventricle is normal in size. Right ventricular systolic function is mildly decreased. - There are no significant valvular abnormalities. - Definity unavailable. - The patient has not had a prior CC echocardiographic exam for comparison. No new lab results to review IMPRESSION: NYHA Functional Class: I-II Stage: C heart failure Ms. Valadez is a 68 year old female who presents for follow up for chronic systolic heart failure. Pt reports that she has been feeling a little bit better since her visit with Nelly in June. She reports that he is no longer having any chest discomfort. She attributes this to not being physically active for the past week. She recently completed Cardiac Rehabilitation after PCI. She reports mild SOB with exertion that does rm with rest. On examination, she is euvolemic and lungs are clear. Discussed that weight gain is likely from unhealthy eating and no exercise over the past week. She will continue on her current medications at current doses. She will follow up with Dr. Dodd in September and HF Clinic in October or sooner PRN. PLAN AND RECOMMENDATIONS: 1. Chronic systolic congestive heart failure (HCC) - ICD9: 428.22, 428.0, ICD10: I50.22 (primary diagnosis) - Euvolemic on examination. EF-33% - Continue Spironolactone - Continue Entresto - [facility] NT PRO BNP - Daily weights. Call if weight increases by 3-4 lbs in 1-4 days period of time. - 2g low sodium diet. - Activity as tolerated. Rest breaks as needed. - Follow up in HF Clinic in October or sooner PRN 2. Cardiomyopathy, ischemic - ICD9: 414.8, ICD10: I25.5 - No complaints of CP at this time - Continue current medications at current doses. 3. Primary hypertension - ICD9: 401.9, ICD10: I10 - Uncontrolled, controlled in July - Continue current medications - Recommend home blood pressure monitoring, to bring results to next visit - Encouraged sodium restriction, DASH or Mediterranean diet - Recommend regular aerobic exercise Followup appointment with Dr. Dodd in September as scheduled. COUNSELING: We discussed the following non-pharmacological measures during this visit: Smoking and alcohol abstinence/cessation, if applicable Dietary and medication compliance Monitoring daily weights and blood pressures Exercise regimen When to call our office Heart Failure Education Booklet: given previously. Discussed red flags and when to call MD/CITY DISPATCH SUPERVISOR or go to ED. Medications reconciled at end of visit: yes I spent 32 minutes in this visit, with more than 50% of the time devoted to patient counseling. SIGNATURE: Jody Sparks APRN.CNP PATIENT NAME: Kenny Valadez DATE: August 23, 2023 TIME: 3:29 PM documented in this encounter [facility] 08-13-2023 Miscellaneous Notes Pt called to set up an appointment sooner than September. Appointment scheduled for August 23, 2023 at 3:30 pm. Jody Sparks APRN.CNP documented in this encounter [facility] 08-13-2023 Miscellaneous Notes Returned patient phone call. Two attempts made to contact patient. Voicemail is full and unable to leave ms. Nelly Brown APRN.CNP documented in this encounter [facility] 08-06-2023 Miscellaneous Notes Received approval for Insulin Degludec flextouch units 200 from [employer]. Effective 08/06/23 until 08/06/24. CLOSED PA started through [employer]. Will await approval/denial documented in this encounter [facility] 08-03-2023 Miscellaneous Notes Images from the original note were not included. View all authorizations for this medication Waiting for Payer Response 08/03/2023 10:24 AM Sending user: Sasha Leon MA Payer: [employer] [phone] documented in this encounter [facility] 08-02-2023 Miscellaneous Notes Patient phones requesting refills as follows: Pt is coming in for apt 08/08/23 Requested Prescriptions Pending Prescriptions Disp Refills insulin degludec (TRESIBA FLEXTOUCH U-200) 200 unit/mL (3 mL) injection 24 mL 0 Sig: Inject 50 Units subcutaneously daily before lunch. Please review and advise. Sasha Leon MA documented in this encounter [facility] 07-13-2023 Miscellaneous Notes Patient's request for medication is as follows: Requested Prescriptions Refused Prescriptions Disp Refills spironolactone (ALDACTONE) 25 mg tablet 45 tablet 3 Sig: Take 0.5 tablets by mouth once daily. Refused By: SU WOOD Reason for Refusal: A Refill not appropriate Refilled 05/03/2023 for 45 tabs and 3 [address]ills to [facility]. Prescription(s) as above. Please process accordingly. Su Wood LPN documented in this encounter [facility] 07-08-2023 Miscellaneous Notes Patient's request for medication is as follows: Requested Prescriptions Refused Prescriptions Disp Refills carvedilol (COREG) 3.125 mg tablet [Pharmacy Med Name: CARVEDILOL 3.125 MG TABLET] 60 tablet 9 Sig: TAKE 1 TABLET BY MOUTH TWICE A DAY WITH FOOD Refused By: SU WOOD Reason for Refusal: Patient has requested refill too soon Refilled 06/15/2023 for 60 tabs and [facility] Prescription(s) as above. Please process accordingly. Su Wood LPN documented in this encounter [facility] 06-22-2023 Instructions Yared Dodd MD - 06/22/2023 1:43 PM EDT We are starting Pravastatin 20 mg once per day Repeat fasting blood work before your next visit documented in this encounter [facility] 06-22-2023 History of Present illness Narrative Images from the original note were not included. [facility] Cardiology [place] ([facility])) [address] [facility] [address] OUTPATIENT VISIT DATE 06/22/2023 PRIMARY CARE PHYSICIAN: David Wynn [address] [place] [address] HISTORY OF PRESENT ILLNESS: Ms. Valadez is a 67 year old woman has a history of coronary artery disease and anterior wall myocardial infarction in March 2023 when she presented to hospital with atypical back pain and was found to have evidence of ST elevation underwent emergent cardiac catheterization. She had a resulting ischemic cardiomyopathy ejection fraction of 30%, chronic systolic congestive heart failure, and dyslipidemia. She has a history of diabetes which is insulin requiring. She made an earlier office visit due to multiple complaints. She still complains of shortness of breath on minimal exertion. Although, she is participating cardiac rehab. She feels better during cardiac rehab than she does on a daily basis. She has occasional episodes of sharp stabbing left-sided chest pain which happens at rest and not with exertion. She has not had symptoms concerning for palpitations or heart racing. She does well during the day with a low-sodium diet but is noncompliant in the evening hours. She has not had symptoms concerning for CHF including PND, orthopnea, or lower extremity edema. PAST MEDICAL HISTORY Diagnosis Date Arthritis Asthma CERVICAL DISC DISPLACMNT 02/03/2008 Chronic systolic heart failure (HCC) Coronary artery disease Degenerative disc disease Diabetes mellitus type 2, controlled (HCC) Herniated disc HLD (hyperlipidemia) HTN (hypertension) Ischemic cardiomyopathy Migraines BELA (obstructive sleep apnea) Pericardial effusion 04/13/2023 Thyroid nodule Unspecified essential hypertension Essential hypertension PAST SURGICAL HISTORY Procedure Laterality Date ADENOIDECTOMY PRIMARY <AGE 12 Adenoidectomy APPENDECTOMY W/ exploratory lap BACK SURGERY HX CHOLECYSTECTOMY TONSILLECTOMY PRIMARY/SECONDARY <AGE 12 Tonsillectomy VAGINAL HYSTERECTOMY UTERUS 250 GM/< Hysterectomy, vaginal SOCIAL HISTORY Social History Tobacco Use Smoking status: Never Smokeless tobacco: Never Tobacco comments: Secondhand smoke exposure x 30 years (Father and 1st ) Substance Use Topics Alcohol use: Yes Comment: rare Drug use: No FAMILY HISTORY Problem Relation Age of Onset Heart Mother Allergies Mother Arthritis Mother Asthma Mother Genitourinary () Mother bladder suspension in her 50's Hearing Loss Mother Hypertension Mother Lipids Mother Osteoporosis Mother Heart Father Cancer Father sarcoma Diabetes Father Hearing Loss Father Hypertension Father Lipids Father Stroke Father TIA'S Heart Maternal Grandmother Heart Maternal Grandfather Heart Paternal Grandmother Diabetes Paternal Grandmother other (Goiter) Paternal Grandmother Heart Paternal Grandfather Cancer Paternal Aunt I lost 11 aunts and uncles Cancer Paternal Uncle I lost 11 aunts and uncles Diabetes Paternal Aunt Diabetes Maternal Uncle Headache Daughter migraines ALLERGIES: ALLERGIES Allergen Reactions Animal Dander Itching Itchy watery eyes, sneezing Imitrex [Sumatripta* Other: See Comments Steroids [Betametha* MEDICATIONS: pravastatin (PRAVACHOL) 20 mg tablet^Take 1 tablet by mouth daily at bedtime.^Disp: 90 tablet^Rfl: 3 carvedilol (COREG) 3.125 mg tablet^Take 1 tablet by mouth twice daily with meals.^Disp: 60 tablet^Rfl: 9 insulin degludec (TRESIBA FLEXTOUCH U-200) 200 unit/mL (3 mL) injection^Inject 50 Units subcutaneously daily before lunch.^Disp: 24 mL^Rfl: 0 clopidogrel (PLAVIX) 75 mg tablet^Take 1 tablet by mouth once daily.^Disp: 90 tablet^Rfl: 3 dapagliflozin propanediol (FARXIGA) 5 mg tablet^Take 1 tablet by mouth daily with breakfast.^Disp: 90 tablet^Rfl: 3 sacubitril-valsartan (ENTRESTO) 24-26 mg tablet^Take 1 tablet by mouth twice daily.^Disp: 180 tablet^Rfl: 1 spironolactone (ALDACTONE) 25 mg tablet^Take 0.5 tablets by mouth once daily.^Disp: 45 tablet^Rfl: 3 fexofenadine (ANGELA) 180 mg tablet^Take 180 mg by mouth once daily.^Disp: ^Rfl: nitroglycerin sublingual (NITROQUICK) 0.4 mg SL tablet^Dissolve 1 tablet under the tongue every 5 minutes as needed for chest pain.^Disp: 25 tablet^Rfl: 0 aspirin, enteric coated (ASPIRIN, ENTERIC COATED) 81 mg EC tablet^Take 1 tablet by mouth once daily.^Disp: ^Rfl: insulin aspart U-100 (NOVOLOG FLEXPEN U-100 INSULIN) 100 unit/mL (3 mL)^Inject subcutaneously TID meals per SS up to 15 units daily^Disp: 15 mL^Rfl: [address] (PROTONIX) 40 mg tablet^Take 1 tablet by mouth once daily.^Disp: 90 tablet^Rfl: 3 REVIEW OF SYSTEMS: Review of Systems Constitutional: Positive for malaise/fatigue. Negative for chills, fever and weight loss. HENT: Negative for hearing loss and sore throat. Eyes: Negative for blurred vision and double vision. Respiratory: Positive for shortness of breath. Cardiovascular: Negative. Gastrointestinal: Negative. Genitourinary: Negative for dysuria, frequency, hematuria and urgency. Musculoskeletal: Positive for myalgias. Skin: Negative. Neurological: Negative for dizziness, seizures, loss of consciousness, weakness and headaches. Endo/Heme/Allergies: Negative for environmental allergies. Does not bruise/bleed easily. Psychiatric/Behavioral: Negative for depression. PHYSICAL EXAMINATION: BP 124/69 Pulse 92 Resp 18 Ht 5' 6.5 (1.69m) Wt 186 lb (84.4kg) SpO2 98[room air]% BMI 29.57 kg/(m^2). General: Pleasant woman sitting appears comfortable no apparent distress she is alert and oriented x 3 HEENT: Carotid upstrokes are brisk bilateral without bruits no JVD appreciated. Pulmonary: Lungs are clear no rales, wheezes, rhonchi Cardiovascular: Normal S1, S2 with regular rate and rhythm. No murmurs, rubs, or gallops Extremities: Warm, well-perfused, no lower extremity edema. CARDIOVASCULAR MEDICINE TESTING: ECG in the office 06/22/2023: Normal sinus rhythm with normal axis and intervals. Poor R wave progression anteriorly with Q waves through V1-V6. Cardiac Catheterization/PCI 04/08/2023: Post- Procedure Diagnosis:Occluded mid LAD otherwise mild to moderate diffuse coronary artery disease right coronary dominant system. Percutaneous core intervention with drug-eluting stent placed from the proximal to mid LAD using IVUS assistance. Abnormal left ventricular function with distal anteroapical wall hypokinesis with an EF 35-40% Hemodynamics: LVEDP: 26 mmHg LV - AORTA: No gradient. Coronary Angiography: Left Main: Mild diffuse disease Left Anterior Descending: Moderate to large caliber vessel. The mid vessel is occluded just past the first septal adjunct professor of voice. The proximal vessel has mild to moderate diffuse calcified disease on IVUS evaluation. Circumflex: Large-caliber nondominant vessel. The proximal vessel has mild to moderate diffuse disease with a large first obtuse marginal branch with mild disease. Second obtuse marginal branch has a proximal 50-60% stenosis. Right Coronary Artery: Moderate to large caliber dominant vessel with mild to moderate diffuse disease Collaterals: None Percutaneous coronary intervention: Occlusion of the mid LAD treated with balloon angioplasty and drug-eluting stent placement. A 3.0 x 48 mm Synergy stent was deployed in the lesion and postdilated 3.5 mm distally and 4.2 mm proximally with a good angiographic result. Intravascular ultrasound was performed prior to stenting and post stent for adequacy of stent deployment and complexity of disease. The mid to distal LAD has severe diffuse disease postintervention. LV Gram: LVEF: 35-40% Wall Motion: Distal anterior and apical wall hypokinesis Echocardiogram 06/21/2023: - Exam indication: CAD - The left ventricle is mildly dilated. There is mild concentric left ventricular hypertrophy. Left ventricular systolic function is moderately decreased. EF = 33 5% (2D 4-ch.) Indeterminate left ventricular diastolic dysfunction. - The right ventricle is normal in size. Right ventricular systolic function is mildly decreased. - There are no significant valvular abnormalities. - Definity unavailable. - The patient has not had a prior CC echocardiographic exam for comparison. Echocardiogram 04/13/2023: - Technically difficult exam due to body habitus and suboptimal positioning. - Exam indication: NSTEMI - The left ventricle is normal in size. Left ventricular systolic function is moderately decreased. EF = 34 5% (2D biplane) Definity contrast used for endocardial border detection. Left ventricular diastolic function was not evaluated. Wall motion abnormalities as detailed above - The right ventricle is normal in size. Right ventricular systolic function is normal. - Exam was compared with the prior CC echocardiographic exam performed on 04/09/2023. Pericardial effusion has improved, only trivial today adjacent to RV. Otherwise no significant change Echocardiogram 04/08/2023: CONCLUSIONS: - Technically difficult exam due to body habitus and suboptimal positioning. - Exam indication: Chest Pain - The left ventricle is normal in size. Left ventricular systolic function is severely decreased. EF = 28 5% (2D 4-ch.) Definity contrast used for endocardial border detection. Left ventricular diastolic function was not evaluated. - The right ventricle is small. Right ventricular systolic function is normal. - The patient has not had a prior CC echocardiographic exam for comparison. IMPRESSION: Ms. Valadez is a 67 year old with a history of diabetes insulin requiring who was recently admitted to the hospital with chest pain and evidence of ST elevation myocardial infarction with drug-eluting stent placement to the LAD. She has a resulting ischemic cardiomyopathy with ejection fraction of 30%, chronic systolic congestive heart failure. She is also treated for dyslipidemia. She presents to the office for follow-up due to multiple concerns. PLAN AND RECOMMENDATIONS: 1. 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 I recommended continued medical therapy. - ECG B/O W INTERP (MED OFFICE) - COMP METABOLIC PANEL 2. Cardiomyopathy, ischemic - ICD9: 414.8, ICD10: I25.5 No improvement in left ventricular function on most recent echocardiogram. She is maintained on Coreg and Entresto. 3. Chronic systolic congestive heart failure (HCC) - ICD9: 428.22, 428.0, ICD10: I50.22 Discussed the need for compliance with low-sodium diet. She has a BMP ordered. May need to consider addition of Lasix to her medical regimen. 4. Essential hypertension - ICD9: 401.9, ICD10: I10 5. Mixed hyperlipidemia - ICD9: 272.2, ICD10: E78.2 Patient with myalgias secondary to Crestor. We will attempt pravastatin 20 mg daily with repeat fasting blood work in 3 to 4 months.- PRAVASTATIN 20 MG TABLET - COMP METABOLIC PANEL - LIPID PANEL BASIC Yared Dodd MD documented in this encounter [facility] 06-22-2023 Nurse Note Patient complains of chest pains possible cardiac rehab, tightness in her chest. documented in this encounter [facility] 06-22-2023 Miscellaneous Notes I called and scheduled pt with Dr. Dodd for . Thanks Cherise Khan Called and spoke with the patient. Patient reports having daily chest pains and neck pain. Patient encouraged to go the the ED for any continued or concerning symptoms. Patient states that she wants to transfer care to the [place] office still under the care of Dr. Dodd. Loan Obrien, MENDY Patient needs sooner appointment in [place]. electronic train control technician did and echocardiogram in [place] and said she needs to be seen sooner she has been waiting since March to see singer songwriter in [place]. Patient want to be transferred to [place] in hopes of seeing doctor on a more regular baiss documented in this encounter [facility] 06-15-2023 Miscellaneous Notes [facility] April [facility]. Tracey Oliveira RN Last visit 05/03/23. Next visit 10/04/23. documented in this encounter [facility] 06-03-2023 Miscellaneous Notes Called [facility] and they stated it was filled yesterday. Closed Rx sent Please do PA. Thank you I do not see an active refill for Tresiba, looks like a refill request was sent yesterday. Patient was hospitalized 04/08/2023 for an NSTEMI and changed her Tresiba to 50 units daily before lunch. JOSE R:03/09/2023 NOV:08/10/2023 Please review and advise. documented in this encounter [facility] 05-06-2023 Instructions Nelly Brown APRN.SHANNON - 05/06/2023 11:01 AM EDT Continue current medications as prescribed. Schedule echo toward middle June. Labwork by next week. 2. Weigh yourself daily. Call me if your weight increases by 3-4 pounds in a 1-4 day period of time. 3. Continue low salt (2000 mg per day) diet. 4. Be as active as you are able. If you get tired, just stop and rest for a while. 5. Come back and see me on WednesdayJune 22 at 1000. If you have any question or concern, you can call me at [phone]. documented in this encounter [facility] 05-06-2023 History of Present illness Narrative Images from the original note were not included. [facility] OUTPATIENT VISIT DATE May 06, 2023 OUTPATIENT VISIT TYPE NEW PRIMARY CARE PHYSICIAN: David Wynn DO REFERRING PHYSICIAN: No referring provider defined for this encounter. CHIEF COMPLAINT: Patient presents with: Breathing Problem Leg Edema CHF HISTORY OF PRESENT ILLNESS: Kenny Valadez is a 67 year old female who presents today for an initial visit to the Heart Failure Clinic. The patient is established with Dr. Dodd and was last seen in office 05/03. Medications were adjusted. She was also instructed to hold her crestor for 2 weeks as she was experiencing pain in her arms and now her hips. Past medical history is significant for hypertension, heart failure with reduced ejection fraction, sleep apnea, obstructive sleep apnea, migraines, asthma. The patient has had 1 hospital admissions in the past 12 months. The last admission was from 04/08 to 04/13 for management of chest pain, nausea and back pain. EKG performed showed non-ST elevation myocardial infarction. She was started on aspirin along with stating therapy. Cardiology was consulted. Cardiac cath was performed which showed occlusion to the LAD in which stent was placed. LVEF was noted at 34% due to underlying coronary artery disease. Furthermore, cath showed evidence of pericarditis along with pericardial effusion however, follow up echo did show slow resolution of fluid. She was started on spironolactone, entresto, rosuvastatin, pantoprazole, SL nitro, farxiga, plavix and carvedilol. Today, the patient reports not feeling well since her heart cath. She was seen by Cardiology on Wednesday. She reports having low blood pressures. Thus, her coreg was decreased to 3.125 mg BID along with a decrease in her spironolactone. After she got home from her hospital stay, she reports severe fatigue, weakness. She reports feeling short of breath often, has history f sleep apnea. Has CPAP machine, but does not use as she cannot tolerate. 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 She states she is worried about the school year as she is too tired and weak currently. She was started in cardiac rehab. Reports feeling pain in her hip afterwards. States she felt tired and winded during rehab. Reports shortness of breath, chest discomfort(has 3 compressed discs in neck that cause pain), fatigue, lightheadedness, dizziness. Eyesight has changed in that she has to increase the size of font on her phone to read. She was seen by Ophthalmology who states she did have significant changes. She was given a new script for eye glasses. Denies edema, fever, chills. Increased numbness in feet along with arms and hands when laying down. Denies smoking or alcohol use. Monitors sodium intake. Does not add salt to foods. Was not aware of a fluid restriction. Heart rates at home are usually low 90's. She states prior to her heart attack her heart rates were always in the 100's. Denies palpitations. IMPRESSION: NYHA Functional Class: II Stage: C heart failure Kenny Valadez is a 67 year-old female who presents to the Heart Failure Clinic to establish care. She appears euvolemic on examination. No changes to medications at this time. As her heart rate is elevated, will reach out to cardiology regarding this since her dose of coreg was just decreased. Would discuss switching to toprol XL if necessary. Reviewed diet, sodium and fluid guidelines with patient. Encouraged exercise as tolerated. Reviewed medications and side effects with patient. She is scheduled for repeat echo 05/27. Discussed pushing this out to middle june to give medications approx 90 days to work. Reviewed plan of care with patient. All questions answered at this time. PLAN AND RECOMMENDATIONS: ASSESSMENT/PLAN: 1. Chronic systolic congestive heart failure (HCC) - ICD9: 428.22, 428.0, ICD10: I50.22 (primary diagnosis) - daily weights, call office if weight increases 3-4 lbs in a 1-4 day period -2 gm low sodium diet -activity as tolerated, rest breaks as needed -GDMT: farxiga, entresto, spironolactone, coreg -lab work by next week -schedule echo for mid june -follow up in June or sooner if needed 2. Cardiomyopathy, ischemic - ICD9: 414.8, ICD10: I25.5 - daily weights, call office if weight increases 3-4 lbs in a 1-4 day period -2 gm low sodium diet -activity as tolerated, rest breaks as needed -EF 34% from echo in March -repeat echo ordered 3. Primary hypertension - ICD9: 401.9, ICD10: I10 -BP suboptimal during visit 109/69 mmHg -encourage DASH/low sodium diet -encourage exercise with rest breaks as needed -goal BP <130/80 mmHg -continue home BP monitoring 4. Mixed hyperlipidemia - ICD9: 272.2, ICD10: E78.2 -crestor has been held as of 05/03 due to muscle aches -follows with her singer songwriter for this Follow up appointment with Dr. Dodd on 10/04 PAST MEDICAL HISTORY Diagnosis Date Arthritis Asthma CERVICAL DISC DISPLACMNT 02/03/2008 Degenerative disc disease Diabetes mellitus type 2, controlled (HCC) Herniated disc Migraines BELA (obstructive sleep apnea) Pericardial effusion 04/13/2023 Thyroid nodule Unspecified essential hypertension Essential hypertension PAST SURGICAL HISTORY Procedure Laterality Date ADENOIDECTOMY PRIMARY <AGE 12 Adenoidectomy APPENDECTOMY W/ exploratory lap BACK SURGERY HX CHOLECYSTECTOMY TONSILLECTOMY PRIMARY/SECONDARY <AGE 12 Tonsillectomy VAGINAL HYSTERECTOMY UTERUS 250 GM/< Hysterectomy, vaginal Social History Tobacco Use Smoking status: Never Smokeless tobacco: Never Tobacco comments: Secondhand smoke exposure x 30 years (Father and 1st ) Substance Use Topics Alcohol use: Yes Comment: rare Drug use: No FAMILY HISTORY Problem Relation Age of Onset Heart Mother Allergies Mother Arthritis Mother Asthma Mother Genitourinary () Mother bladder suspension in her 50's Hearing Loss Mother Hypertension Mother Lipids Mother Osteoporosis Mother Heart Father Cancer Father sarcoma Diabetes Father Hearing Loss Father Hypertension Father Lipids Father Stroke Father TIA'S Heart Maternal Grandmother Heart Maternal Grandfather Heart Paternal Grandmother Diabetes Paternal Grandmother other (Goiter) Paternal Grandmother Heart Paternal Grandfather Cancer Paternal Aunt I lost 11 aunts and uncles Cancer Paternal Uncle I lost 11 aunts and uncles Diabetes Paternal Aunt Diabetes Maternal Uncle Headache Daughter migraines ALLERGIES Allergen Reactions Animal Dander Itching Itchy watery eyes, sneezing Imitrex [Sumatripta* Other: See Comments Steroids [Betametha* CURRENT MEDICATIONS: Current Outpatient Medications Medication Sig Dispense Refill spironolactone (ALDACTONE) 25 mg tablet Take 0.5 tablets by mouth once daily. 45 tablet 3 carvedilol (COREG) 3.125 mg tablet Take 1 tablet by mouth twice daily with meals. 60 tablet 11 fexofenadine (ANGELA) 180 mg tablet Take 180 mg by mouth once daily. insulin degludec (TRESIBA FLEXTOUCH U-200) 200 unit/mL (3 mL) injection Inject 50 Units subcutaneously daily before lunch. May titrate back to previous dose if poorly controlled blood sugar sacubitril-valsartan (ENTRESTO) 24-26 mg tablet Take 1 tablet by mouth twice daily. 60 tablet 0 rosuvastatin (CRESTOR) 40 mg tablet Take 1 tablet by mouth daily at bedtime. [address] (PROTONIX) 40 mg tablet Take 1 tablet by mouth once daily. 30 tablet 0 nitroglycerin sublingual (NITROQUICK) 0.4 mg SL tablet Dissolve 1 tablet under the tongue every 5 minutes as needed for chest pain. 25 tablet 0 dapagliflozin (FARXIGA) 5 mg tablet Take 1 tablet by mouth daily with breakfast. 30 tablet 0 clopidogrel (PLAVIX) 75 mg tablet Take 1 tablet by mouth once daily. 30 tablet 0 aspirin, enteric coated (ASPIRIN, ENTERIC COATED) 81 mg EC tablet Take 1 tablet by mouth once daily. insulin aspart U-100 (NOVOLOG FLEXPEN U-100 INSULIN) 100 unit/mL (3 mL) Inject subcutaneously TID meals per SS up to 15 units daily 15 mL 5 Current Facility-Administered Medications Medication Dose Route Frequency Provider Last Rate Last Admin perflutren lipid microspheres 1.3 mL in NaCl (PF) 0.9% 10 mL injection (DEFINITY) INTRAVENOUS DIRECTED PRN Yared Dodd MD sodium chloride 0.9 % (flush) 10 mL (BD POSIFLUSH) 10 mL INTRAVENOUS DIRECTED PRN Yared Dodd MD REVIEW OF SYSTEMS: GENERAL: Negative for: Weight loss or gain, Fever or Chills. + Weakness and Sleep difficulties. HEENT: Positive for:Impaired Vision and Glasses NECK: Negative for: Swelling, Pain, Stiffness RESPIRATORY: Positive for: Cough and Shortness of breath GASTROINTESTINAL: Negative for: Trouble swallowing, Heartburn, Change in bowel habits, Blood in stool, Dark black stools MUSCULOSKELETAL: Positive for: Muscle or joint pain NEUROLOGIC/PSYCHIATRIC: Negative for: Weakness, Paralysis, Numbness, Tingling, Tremor, Nervousness or anxiety, Depressed mood, Memory loss SKIN: Negative for: Rash, Itching HEMATOLOGICAL/LYMPHATIC: Positive for: Easy bruising and Easy bleeding ENDOCRINE: Negative for: Heat or Cold Intolerance, Excessive Sweating, Frequent Urination, Frequent Thirst PHYSICAL EXAMINATION: 05/06/23 1019 Weight: 84.6 kg (186 lb 6.4 oz) General: Normal exam, no distress, overweight Skin: No clubbing, no cyanosis. Eyes: Extra ocular movements intact Neck: Neck veins are not distended Lungs: Chest clear to auscultation Heart: Rhythm: regular rate and rhythm, Rate: tachycardia, no murmur Abdomen: Normal, Bowel Sounds: Present Extremities: Normal exam of the extremities Peripheral Pulses: Normal CARDIOVASCULAR MEDICINE TESTING: LABS 04/13/2023: Latest Reference Range & Units 04/13/23 04:15 Sodium 136 - 144 mmol/L 137 Potassium 3.7 - 5.1 mmol/L 4.0 Chloride 97 - 105 mmol/L 105 CO2 22 - 30 mmol/L 18 (L) BUN 7 - 21 mg/dL 25 (H) Creatinine 0.58 - 0.96 mg/dL 1.03 (H) Glucose 74 - 99 mg/dL 130 (H) Calcium 8.5 - 10.2 mg/dL 9.1 Anion Gap 9 - 18 mmol/L 14 eGFR >=60 mL/min/1.73m 60 (L): Data is abnormally low (H): Data is abnormally high ECHO 04/13/2023: CONCLUSIONS: - Technically difficult exam due to body habitus and suboptimal positioning. - Exam indication: NSTEMI - The left ventricle is normal in size. Left ventricular systolic function is moderately decreased. EF = 34 5% (2D biplane) Definity contrast used for endocardial border detection. Left ventricular diastolic function was not evaluated. Wall motion abnormalities as detailed above - The right ventricle is normal in size. Right ventricular systolic function is normal. - Exam was compared with the prior echocardiographic exam performed on 04/09/2023. Pericardial effusion has improved, only trivial today adjacent to RV. Otherwise no significant change I have personally reviewed the Laboratory Testing and Echocardiogram. COUNSELING: We discussed the following non-pharmacological measures during this visit: Smoking and alcohol abstinence/cessation, if applicable Dietary and medication compliance Monitoring daily weights and blood pressures Exercise regimen When to call our office Heart Failure Education Booklet: HF education reviewed today and materials given to patient. Reviewed HF Zones sheet and patient was given all contact information for HF Clinic. Discussed etiology of heart failure, importance of daily weights, fluid and fluid management, signs and symptoms of heart failure exacerbation, and activity guidelines. Reviewed 2g low sodium diet and the role sodium plays in the management of heart failure. Reviewed all current medications and the importance these medications play in management of heart failure. Discussed when to call clinic and when ED visit would be warranted. Patient states understanding of education. All questions were answered. Medications reconciled at end of visit: yes I spent 50 minutes in this visit, with more than 50% of the time devoted to patient counseling. SIGNATURE: Nelly Brown APRN.CNP PATIENT NAME: Kenny Valadez DATE: May 06, 2023 TIME: 1015 documented in this encounter [facility] 05-03-2023 Instructions Yared Dodd MD - 05/03/2023 1:41 PM EDT We are decreasing the Spironolactone to 12.5 mg (1/2 of the 25 mg pill) per day We are decreasing the Coreg (carvedilol) to 3.125 mg two times per day Repeat fasting blood work Repeat an echocardiogram documented in this encounter [facility] 05-03-2023 History of Present illness Narrative Images from the original note were not included. [facility] Cardiology ([address]) [address] [facility] [id number] OUTPATIENT VISIT DATE 05/03/2023 PRIMARY CARE PHYSICIAN: David Wynn [address] [place] [id number] HISTORY OF PRESENT ILLNESS: Ms. Valadez is a 67 year old woman has a history of coronary artery disease and anterior wall myocardial infarction in March 2023 when she presented to hospital with atypical back pain and was found to have evidence of ST elevation underwent emergent cardiac catheterization. She had a resulting ischemic cardiomyopathy ejection fraction of 30%, chronic systolic congestive heart failure, and dyslipidemia. She has a history of diabetes which is insulin requiring. She presents the office for follow-up after recent hospital admission. She is complaining of worsening fatigue, shortness of breath, dyspnea on exertion since hospital discharge. She tells me she has difficulty getting to the mailbox due to lightheadedness and weakness. Symptoms have progressed over the past 1 to 2 weeks. She typically has very low blood pressures. She denies overt symptoms of syncope or near syncope. She is also complaining of aching in her arms bilaterally. She tells me the symptoms started shortly after hospital discharge. PAST MEDICAL HISTORY Diagnosis Date Arthritis Asthma CERVICAL DISC DISPLACMNT 02/03/2008 Degenerative disc disease Diabetes mellitus type 2, controlled (HCC) Herniated disc Migraines BELA (obstructive sleep apnea) Pericardial effusion 04/13/2023 Thyroid nodule Unspecified essential hypertension Essential hypertension PAST SURGICAL HISTORY Procedure Laterality Date ADENOIDECTOMY PRIMARY <AGE 12 Adenoidectomy APPENDECTOMY W/ exploratory lap BACK SURGERY HX CHOLECYSTECTOMY TONSILLECTOMY PRIMARY/SECONDARY <AGE 12 Tonsillectomy VAGINAL HYSTERECTOMY UTERUS 250 GM/< Hysterectomy, vaginal SOCIAL HISTORY Social History Tobacco Use Smoking status: Never Smokeless tobacco: Never Tobacco comments: Secondhand smoke exposure x 30 years (Father and 1st ) Substance Use Topics Alcohol use: Yes Comment: rare Drug use: No FAMILY HISTORY Problem Relation Age of Onset Heart Mother Allergies Mother Arthritis Mother Asthma Mother Genitourinary () Mother bladder suspension in her 50's Hearing Loss Mother Hypertension Mother Lipids Mother Osteoporosis Mother Heart Father Cancer Father sarcoma Diabetes Father Hearing Loss Father Hypertension Father Lipids Father Stroke Father TIA'S Heart Maternal Grandmother Heart Maternal Grandfather Heart Paternal Grandmother Diabetes Paternal Grandmother other (Goiter) Paternal Grandmother Heart Paternal Grandfather Cancer Paternal Aunt I lost 11 aunts and uncles Cancer Paternal Uncle I lost 11 aunts and uncles Diabetes Paternal Aunt Diabetes Maternal Uncle Headache Daughter migraines ALLERGIES: ALLERGIES Allergen Reactions Animal Dander Itching Itchy watery eyes, sneezing Imitrex [Sumatripta* Other: See Comments Steroids [Betametha* MEDICATIONS: fexofenadine (ANGELA) 180 mg tablet^Take 180 mg by mouth once daily.^Disp: ^Rfl: insulin degludec (TRESIBA FLEXTOUCH U-200) 200 unit/mL (3 mL) injection^Inject 50 Units subcutaneously daily before lunch. May titrate back to previous dose if poorly controlled blood sugar^Disp: ^Rfl: sacubitril-valsartan (ENTRESTO) 24-26 mg tablet^Take 1 tablet by mouth twice daily.^Disp: 60 tablet^Rfl: 0 rosuvastatin (CRESTOR) 40 mg tablet^Take 1 tablet by mouth daily at bedtime.^Disp: 30 tablet^Rfl: [address] (PROTONIX) 40 mg tablet^Take 1 tablet by mouth once daily.^Disp: 30 tablet^Rfl: 0 nitroglycerin sublingual (NITROQUICK) 0.4 mg SL tablet^Dissolve 1 tablet under the tongue every 5 minutes as needed for chest pain.^Disp: 25 tablet^Rfl: 0 dapagliflozin (FARXIGA) 5 mg tablet^Take 1 tablet by mouth daily with breakfast.^Disp: 30 tablet^Rfl: 0 clopidogrel (PLAVIX) 75 mg tablet^Take 1 tablet by mouth once daily.^Disp: 30 tablet^Rfl: 0 aspirin, enteric coated (ASPIRIN, ENTERIC COATED) 81 mg EC tablet^Take 1 tablet by mouth once daily.^Disp: ^Rfl: insulin aspart U-100 (NOVOLOG FLEXPEN U-100 INSULIN) 100 unit/mL (3 mL)^Inject subcutaneously TID meals per SS up to 15 units daily^Disp: 15 mL^Rfl: 5 spironolactone (ALDACTONE) 25 mg tablet^Take 0.5 tablets by mouth once daily.^Disp: 45 tablet^Rfl: 3 carvedilol (COREG) 3.125 mg tablet^Take 1 tablet by mouth twice daily with meals.^Disp: 60 tablet^Rfl: 11 REVIEW OF SYSTEMS: Review of Systems Constitutional: Positive for malaise/fatigue. Negative for chills, fever and weight loss. HENT: Negative for hearing loss and sore throat. Eyes: Negative for blurred vision and double vision. Respiratory: Positive for shortness of breath. Cardiovascular: Negative. Gastrointestinal: Negative. Genitourinary: Negative for dysuria, frequency, hematuria and urgency. Musculoskeletal: Negative. Skin: Negative. Neurological: Negative for dizziness, seizures, loss of consciousness, weakness and headaches. Endo/Heme/Allergies: Negative for environmental allergies. Does not bruise/bleed easily. Psychiatric/Behavioral: Negative for depression. PHYSICAL EXAMINATION: BP 98/72 Pulse 90 Resp 18 Wt 186 lb (84.4kg) SpO2 98% General: Pleasant woman sitting appears comfortable no apparent distress she is alert and oriented x3 HEENT: Carotid upstrokes are brisk without bruits. JVD just above the clavicle at 90 degrees. Pulmonary: Lungs are clear no rales, wheezes, rhonchi Cardiovascular: Normal S1, S2 with regular rate and rhythm. No murmurs, rubs, or gallops Extremities: Warm, well-perfused, no lower extremity edema. 2+ distal pulses CARDIOVASCULAR MEDICINE TESTING: Cardiac Catheterization/PCI 04/08/2023: Post- Procedure Diagnosis:Occluded mid LAD otherwise mild to moderate diffuse coronary artery disease right coronary dominant system. Percutaneous core intervention with drug-eluting stent placed from the proximal to mid LAD using IVUS assistance. Abnormal left ventricular function with distal anteroapical wall hypokinesis with an EF 35-40% Hemodynamics: LVEDP: 26 mmHg LV - AORTA: No gradient. Coronary Angiography: Left Main: Mild diffuse disease Left Anterior Descending: Moderate to large caliber vessel. The mid vessel is occluded just past the first septal adjunct professor of voice. The proximal vessel has mild to moderate diffuse calcified disease on IVUS evaluation. Circumflex: Large-caliber nondominant vessel. The proximal vessel has mild to moderate diffuse disease with a large first obtuse marginal branch with mild disease. Second obtuse marginal branch has a proximal 50-60% stenosis. Right Coronary Artery: Moderate to large caliber dominant vessel with mild to moderate diffuse disease Collaterals: None Percutaneous coronary intervention: Occlusion of the mid LAD treated with balloon angioplasty and drug-eluting stent placement. A 3.0 x 48 mm Synergy stent was deployed in the lesion and postdilated 3.5 mm distally and 4.2 mm proximally with a good angiographic result. Intravascular ultrasound was performed prior to stenting and post stent for adequacy of stent deployment and complexity of disease. The mid to distal LAD has severe diffuse disease postintervention. LV Gram: LVEF: 35-40% Wall Motion: Distal anterior and apical wall hypokinesis Echocardiogram 04/13/2023: - Technically difficult exam due to body habitus and suboptimal positioning. - Exam indication: NSTEMI - The left ventricle is normal in size. Left ventricular systolic function is moderately decreased. EF = 34 5% (2D biplane) Definity contrast used for endocardial border detection. Left ventricular diastolic function was not evaluated. Wall motion abnormalities as detailed above - The right ventricle is normal in size. Right ventricular systolic function is normal. - Exam was compared with the prior CC echocardiographic exam performed on 04/09/2023. Pericardial effusion has improved, only trivial today adjacent to RV. Otherwise no significant change Echocardiogram 04/08/2023: CONCLUSIONS: - Technically difficult exam due to body habitus and suboptimal positioning. - Exam indication: Chest Pain - The left ventricle is normal in size. Left ventricular systolic function is severely decreased. EF = 28 5% (2D 4-ch.) Definity contrast used for endocardial border detection. Left ventricular diastolic function was not evaluated. - The right ventricle is small. Right ventricular systolic function is normal. - The patient has not had a prior CC echocardiographic exam for comparison. IMPRESSION: Ms. Valadez is a 67 year old with a history of diabetes insulin requiring who was recently admitted to the hospital with chest pain and evidence of ST elevation myocardial infarction with drug-eluting stent placement to the LAD. She has a resulting ischemic cardiomyopathy with ejection fraction of 30%, chronic systolic congestive heart failure. She is also treated for dyslipidemia. She presents to the office for follow-up after hospital admission. PLAN AND RECOMMENDATIONS: 1. 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 Will need to continue treatment for the course of 1 year uninterrupted - CARVEDILOL 3.125 MG TABLET - COMP METABOLIC PANEL 2. Cardiomyopathy, ischemic - ICD9: 414.8, ICD10: I25.5 Decrease spironolactone to 12.5 mg daily and Coreg to 3.125 mg twice daily given her symptoms of orthostasis and lightheadedness. Repeat basic metabolic panel and BNP - SPIRONOLACTONE 25 MG TABLET - CARVEDILOL 3.125 MG TABLET - ECHO - PERFLUTREN LIPID MICROSPHERES 1.1 MG/ML INJECTION IN NS 10 ML - SODIUM CHLORIDE 0.9 % (FLUSH) INJECTION SYRINGE 3. Chronic systolic congestive heart failure (HCC) - ICD9: 428.22, 428.0, ICD10: I50.22 Continue to advise on low-sodium diet. We will recheck echocardiogram for assessment LV function - ECHO - PERFLUTREN LIPID MICROSPHERES 1.1 MG/ML INJECTION IN NS 10 ML - SODIUM CHLORIDE 0.9 % (FLUSH) INJECTION SYRINGE - NT PRO BNP 4. Primary hypertension - ICD9: 401.9, ICD10: I10 5. Mixed hyperlipidemia - ICD9: 272.2, ICD10: E78.2 Patient with symptoms concerning for statin intolerance. I have asked her to hold her Crestor for 2 weeks. She will call the office with an update regarding symptoms - COMP METABOLIC PANEL - LIPID PANEL BASIC Yared Dodd MD documented in this encounter [facility] 04-30-2023 Miscellaneous Notes Received a call from patient who is calling concerned with feeling severely fatigued. BP at PCP today was 93/68. Patient is asking if medications can be adjusted. Nae Plascencia RN documented in this encounter [facility] 04-19-2023 Nurse Note A phone visit was placed to educate patient on signs, symptoms, medications and diet for Heart Failure patients. This phone or virtual visit was conducted to prevent risk and to optimize the patient's heart health. Patient is aware of the inherent limitations of a phone encounter. Verbal consent obtained. Name and verified. Kenny Valadez has consented to this telephone encounter. [facility] Failure Clinic Telephone Visit Spoke directly with patient Yes New patient visit Yes Established patient visit No Change in health status since discharge No Do you have a scale to at home to weigh yourself everyday? Yes Are you weighing yourself daily and writing it down? Yes-Discussed the purpose of daily weights in the management and early intervention of Heart Failure. Encouraged patient to continue to monitor daily. Weight at discharge/last visit 192 lbs Weight today 186 lbs Do you have any signs/symptoms? Weight gain No Edema No SOB with activity Yes-States her norm SOB at rest No SOB when lying flat No # of pillows 1-2 pillows Abdominal distention No Changed in appetite No Cough Yes-Severe allergies Do you know who to contact if you have weight gain or symptoms? No-Discussed the role of the [facility] in the management and early intervention of HF symptoms. Do you know how much weight gain in either 1 day and 7 days is important to let the HF Clinic know about? No-Reviewed Zone sheet. Do you know what other symptoms to report to the HF Clinic? No-Reviewed Zone sheet. Medications were reviewed Yes Do you have all of your medications? Yes Have you been taking your medications as directed? Yes Have you been maintaining a 2745-9545 mg of sodium diet? Yes-Has been reading labels for years. However, review showed patient may be taking in less than recommended daily amount. Extensive education was provided with emphasis on the need to weigh daily, read labels, monitor Na/fluids, monitoring for signs/symptoms, and when to call the [facility] for early intervention. Discussed importance of balancing sodium throughout the day for a goal of 500-650 mg per meal (1500-2000mg per day) and to limit fluids to 48-64 ounces per day. Patient did express some anxiety with new diagnosis. Emotional support provided at this visit. Encouraged the patient to call the H[facility] with any questions/concerns. Information packet mailed to patient. Are you reading labels? Yes Have you been maintaining a 2 liter (64 oz) fluid restriction? Yes Diet reviewed Yes Are you exercising/active? No-Plans to participate in Cardiac Rehabilitation in [place]. Do you have any questions/concerns? No Reviewed who to contact for questions/concerns Yes Confirmed patient has HF Clinic phone number and provider phone numbers Yes Reviewed HF Clinic hours of operation Yes Reviewed when to seek Emergency Room/911 care Yes Reviewed upcoming appointments Yes Verbalized understanding? Yes Next visit Patient would like to follow up in the [facility]. Call placed to that office and referral made. Time spent: 40 min > 50% counseling and coordination of care Mriian Sheridan RN April 19, 2023 12:04 PM documented in this encounter [facility] 04-16-2023 Miscellaneous Notes Received a call from patient who is asking for a cardiac rehab order for [facility] (order needs to be faxed to [phone], attention: [place]). Patient indicated she would like to attend rehab at [facility] and they need an order prior to faxing treatment forms to our office. Nae Plascencia RN documented in this encounter [facility] 04-14-2023 Miscellaneous Notes Called and scheduled patient with Dr. Dodd on 05/03/23. Loan Obrien RN Please arrange hospital follow up with Dr. Dodd or myself in 2-4 weeks. Thank you, Su Moser APRN.SHANNON documented in this encounter [facility] 04-14-2023 Miscellaneous Notes The patient was discharged from [facility] on 04/13/23 with an order to schedule with the Heart Failure Clinic. The Clinic reached out to the patient. Phone appointment scheduled 04/19/23. documented in this encounter [facility] 04-08-2023 History of Past i llness Narrative Problem Noted Date Resolved Date NSTEMI (non-ST elevated myocardial infarction) 0 04/08/2023 04/13/2023 documented as of this encounter (statuses as of 04/14/2023) [facility] History of Past illness Narrative* Problem Noted Date Resolved Date NSTEMI (non-ST elevated myocardial infarction) 0 04/08/2023 04/13/2023 documented as of this encounter (statuses as of 04/14/2023) [address]25-2023 History of Past illness Narrative* Problem Noted Date Resolved Date NSTEMI (non-ST elevated myocardial infarction) 0 04/08/2023 04/13/2023 documented as of this encounter (statuses as of 04/19/2023) [address]25-2023 History of Past illness Narrative* Problem Noted Date Resolved Date NSTEMI (non-ST elevated myocardial infarction) 0 04/08/2023 04/13/2023 documented as of this encounter (statuses as of 04/19/2023) [address]25-2023 History of Past illness Narrative* Problem Noted Date Resolved Date NSTEMI (non-ST elevated myocardial infarction) 0 04/08/2023 04/13/2023 documented as of this encounter (statuses as of 05/04/2023) [address]25-2023 History of Past illness Narrative* Problem Noted Date Resolved Date NSTEMI (non-ST elevated myocardial infarction) 0 04/08/2023 04/13/2023 documented as of this encounter (statuses as of 05/06/2023) [address]25-2023 History of Past illness Narrative* Problem Noted Date Resolved Date NSTEMI (non-ST elevated myocardial infarction) 0 04/08/2023 04/13/2023 documented as of this encounter (statuses as of 05/21/2023) [address]25-2023 History of Past illness Narrative* Problem Noted Date Diagnosed Date Resolved Date NSTEMI (non-ST elevated myoc ardial infarction) 04/08/2023 04/13/2023 documented as of this encounter (statuses as of 06/03/2023) [address]25-2023 History of Past illness Narrative* Problem Noted Date Diagnosed Date Resolved Date NSTEMI (non-ST elevated myoc ardial infarction) 04/08/2023 04/13/2023 documented as of this encounter (statuses as of 06/15/2023) [address]25-2023 History of Past illness Narrative* Problem Noted Date Diagnosed Date Resolved Date NSTEMI (non-ST elevated myoc ardial infarction) 04/08/2023 04/13/2023 documented as of this encounter (statuses as of 06/22/2023) [facility] History of Past illness Narrative* Problem Noted Date Diagnosed Date Resolved Date NSTEMI (non-ST elevated myoc ardial infarction) 04/08/2023 04/13/2023 documented as of this encounter (statuses as of 06/22/2023) [facility] History of Past illness Narrative* Problem Noted Date Diagnosed Date Resolved Date NSTEMI (non-ST elevated myoc ardial infarction) 04/08/2023 04/13/2023 documented as of this encounter (statuses as of 07/08/2023) [facility] History of Past illness Narrative* Problem Noted Date Diagnosed Date Resolved Date NSTEMI (non-ST elevated myoc ardial infarction) 04/08/2023 04/13/2023 documented as of this encounter (statuses as of 07/13/2023) [facility] History of Past illness Narrative* Problem Noted Date Diagnosed Date Resolved Date NSTEMI (non-ST elevated myoc ardial infarction) 04/08/2023 04/13/2023 documented as of this encounter (statuses as of 07/30/2023) [facility] History of Past illness Narrative* Problem Noted Date Diagnosed Date Resolved Date NSTEMI (non-ST elevated myoc ardial infarction) 04/08/2023 04/13/2023 documented as of this encounter (statuses as of 08/02/2023) [facility] History of Past illness Narrative* Problem Noted Date Diagnosed Date Resolved Date NSTEMI (non-ST elevated myoc ardial infarction) 04/08/2023 04/13/2023 documented as of this encounter (statuses as of 08/06/2023) [facility] History of Past illness Narrative* Problem Noted Date Diagnosed Date Resolved Date NSTEMI (non-ST elevated myoc ardial infarction) 04/08/2023 04/13/2023 documented as of this encounter (statuses as of 08/07/2023) [address]25-2023 History of Past illness Narrative* Problem Noted Date Diagnosed Date Resolved Date NSTEMI (non-ST elevated myoc ardial infarction) 04/08/2023 04/13/2023 documented as of this encounter (statuses as of 08/13/2023) [address]25-2023 History of Past illness Narrative* Problem Noted Date Diagnosed Date Resolved Date NSTEMI (non-ST elevated myoc ardial infarction) 04/08/2023 04/13/2023 documented as of this encounter (statuses as of 08/14/2023) [facility] History of Past illness Narrative* Problem Noted Date Diagnosed Date Resolved Date NSTEMI (non-ST elevated myoc ardial infarction) 04/08/2023 04/13/2023 documented as of this encounter (statuses as of 08/24/2023) [facility] History of Past illness Narrative* Problem Noted Date Diagnosed Date Resolved Date NSTEMI (non-ST elevated myoc ardial infarction) 04/08/2023 04/13/2023 documented as of this encounter (statuses as of 09/30/2023) [address]25-2023 History of Past illness Narrative* Problem Noted Date Diagnosed Date Resolved Date NSTEMI (non-ST elevated myoc ardial infarction) 04/08/2023 04/13/2023 documented as of this encounter (statuses as of 10/06/2023) [facility] History of Past illness Narrative* Problem Noted Date Diagnosed Date Resolved Date NSTEMI (non-ST elevated myoc ardial infarction) 04/08/2023 04/13/2023 documented as of this encounter (statuses as of 10/19/2023) [address]25-2023 History of Past illness Narrative* Problem Noted Date Diagnosed Date Resolved Date NSTEMI (non-ST elevated myoc ardial infarction) 04/08/2023 04/13/2023 documented as of this encounter (statuses as of 01/12/2024) [address]25-2023 History of Past illness Narrative* Problem Noted Date Diagnosed Date Resolved Date NSTEMI (non-ST elevated myoc ardial infarction) 04/08/2023 04/13/2023 documented as of this encounter (statuses as of 01/14/2024) [address]25-2023 History of Past illness Narrative* Problem Noted Date Diagnosed Date Resolved Date NSTEMI (non-ST elevated myoc ardial infarction) 04/08/2023 04/13/2023 documented as of this encounter (statuses as of 01/19/2024) [facility] History of Past illness Narrative* Problem Noted Date Diagnosed Date Resolved Date NSTEMI (non-ST elevated myoc ardial infarction) 04/08/2023 04/13/2023 documented as of this encounter (statuses as of 02/18/2024) [facility] History of Past illness Narrative* Problem Noted Date Diagnosed Date Resolved Date NSTEMI (non-ST elevated myoc ardial infarction) 04/08/2023 04/13/2023 documented as of this encounter (statuses as of 02/24/2024) [facility] History of Past illness Narrative* Problem Noted Date Diagnosed Date Resolved Date NSTEMI (non-ST elevated myoc ardial infarction) 04/08/2023 04/13/2023 documented as of this encounter (statuses as of 02/29/2024) [facility] Miscellaneous Notes* Telephone Encounter - Tessy Lofton MA - 03/03/2023 12:00 PM EDT Requester: Patient Please re-send to new pharmacy Last Visit in Endocrinology: Provider name: Mary Kate Barber CNP , Date 12/04/2022 Next Scheduled Appt in Endo: 03/09/2023 Last Refill: 12/04/2022 Number of Refills given: 3 Requested Prescriptions Pending Prescriptions Disp Refills insulin degludec (TRESIBA FLEXTOUCH U-200) 200 unit/mL (3 mL) injection 45 mL 3 Sig: INJECT SUBCUTANEOUSLY 100 UNITS DAILY AT NOON. 45 ML PER 90 DAY SUPPLY.E11.21 Please review and advise. Tessy Lofton MA [facility] Miscellaneous Notes* Telephone Encounter - Kori Manuel RN - 01/04/2023 9:01 AM EST Please review. [facility] Miscellaneous Notes* Telephone Encounter - Kori Manuel RN - 12/31/2022 2:40 PM EST Called patient's home,/cell# at [phone], no answer, VM box is full. Sent patient a Nuenz message with providers message. Closed. * Telephone Encounter - Mary Kate Barber APRN.CNP - 12/31/2022 2:23 PM EST Day prior to procedure: Take novolog per SS Reduce tresiba to 86 units Day of procedure: If glucose is over 200 in the AM dose novolog per SS. Take normal tresiba dose once procedure is over. No changes to trulicity Thank you * Telephone Encounter - Kori Manuel RN - 12/30/2022 4:13 PM EST Patient called and left a VM on nurses line. State's she is having an EGD/Colonoscopy next week andneeds to know how to manage her diabetic medications for prep and the day of procedure. Uses Nuenz. [facility] Evaluation + Plan note Diagnostic Tests Pending * [facility] Send out (Blood Specimens) 12/29/22 Future Scheduled Tests Laboratory* Aspartate Aminotransferase 05/21/22 * ALT / SGPT 05/21/22 * Lipid Profile 05/21/22 Radiology* MA Mammo Screening Bilateral w/ Adalberto 04/28/22 * XR Hip Minimum 2 Views Right 05/12/22 * XR Sacroiliac Joints Minimum 3 Views 05/12/22 [facility] 02-14-2023 Miscellaneous Notes* Telephone Encounter - Jody Fletcher RN - 12/29/2022 9:21 AM EST Scheduled - the only available time left on 01/05 was 4:00 PM, went ahead and scheduled her but advised her to reach out to her dobby loom fixer regarding her diabetes medication. * Telephone Encounter - Servando Reece MD - 12/29/2022 8:54 AM EST Jody, please help with schedulers for EGD and colonoscopy with [facility] anesthesia day 01/05 [facility] Instructions* Patient Instructions* Servando Reece MD - 12/29/2022 8:56 AM EST Images from the original note were not included. Bowel Preparation Instructions for: Golytely, Nulytely, Trilyte or Colyte (polyethylene glycol 3350and electrolytes) IF YOU DO NOT FOLLOW THESE DIRECTIONS, YOUR COLONOSCOPY WILL BE CANCELLED. Gonzalez Instructions: Your bowel must be empty so that your doctor can clearly view your colon. Follow all of the instructions in this handout EXACTLY as they are written. Do NOT eat any solid food the ENTIRE day before your colonoscopy. Drink only clear liquids. Buy your bowel preparation at least 5 days before your colonoscopy. TRANSPORTATION on the Day of Your Exam A responsible person MUST be present with you at Check In prior to your colonoscopy and REMAIN in the endoscopy area until you are discharged. You are NOT ALLOWED to drive, take a taxi or bus, or leave the Endoscopy Center ALONE. If you do not have a responsible customer service driver (family member or friend) with you to take you home, your exam cannot be done with sedation and will be cancelled. Please bring a list of all of your current medications, including any Over-the Counter medications with you. Medications If you take insulin, diabetic medications or blood thinners such as Coumadin (warfarin), Plavix (clopidogrel), Ticlid (ticlopidine hydrochloride), Agrylin (anagrelide), Xarelto (Rivaroxaban), Pradaxa(Dabigatran), Eliquis (Apixaban), and Effient (Prasugrel). You MUST call the doctors who orders those medicines for instructions on altering the dosage before your colonoscopy. All other medications should be taken the day of the exam with a sip of water including ASPIRIN. Five (5) Days Before Your Colonoscopy Do NOT take medicines that stop diarrhea - such as Imodium, Kaopectate, or Pepto Bismol. Do NOT take fiber supplements - such as Metamucil, Citrucel, or Perdiem. Do NOT take products that contain iron - such as multi-vitamins (the label lists what is in the products). Do NOT take Vitamin E. Buy the prescription bowel preparation solution at your local pharmacy or drugstore pharmacy. 10/2019 Bowel Preparation Instructions for: Golytely, Nulytely, Trilyte or Colyte (polyethylene glycol 3350and electrolytes) Three (3) Days Before Your Colonoscopy Do NOT eat high-fiber foods - such as popcorn, beans, seeds (flax, sunflower, quinoa), multigrain bread, nuts, salad/vegetables, or fresh and dried fruit. One (1) Day Before Your Colonoscopy Only drink clear liquids the ENTIRE DAY before your colonoscopy. Do NOT eat any solid foods. Drink at least 8 ounces of clear liquids every hour after waking up. The clear liquids you can drink include: Clear Liquid (NO RED LIQUIDS) DO NOT DRINK Gatorade, Pedialyte or Powerade Clear broth or bouillon Coffee or tea (no milk or non-dairy creamer) Carbonated and non-carbonated soft drinks Ananda-Aid or other fruit flavored drinks Strained fruit juices (no pulp) Jell-O, popsicles, hard candy Water Alcohol Milk or non-dairy creamers Noodles or vegetables in soup Juice with pulp Liquid you cannot see through Do not use tobacco/vaping products The bowel preparation solution will be consumed in two parts. Mix the solution the evening before your colonoscopy and refrigerate before drinking. You may add the flavor pack that came with the bowel preparation. Do NOT add ice, sugar or any other flavorings to the solution. Part 1 At 6:00 PM - Evening before your colonoscopy Drink an 8-oz glass of bowel preparation every 10 minutes for a total of 8 glasses. You may continue to drink clear liquids until midnight. Part 2 On the day of your colonoscopy you may drink clear liquids up to (three) 3 hours before your procedure. 4 1/2 hours before your colonoscopy Drink an 8-oz glass of bowel preparation every 10 minutes for a total of 8 glasses. Fifteen (15) minutes later, drink an 8-oz glass of clear liquids every 15 minutes for a total of 2 glasses. You may continue to drink clear liquids up to (three) 3 hours before your exam. 2 10/2019 documented in this encounter[facility] History of Present illness Narrative* Servando Reece MD - 12/29/2022 8:30 AM EST VIRTUAL VISIT PROGRESS NOTE This is a virtual visit using [employer] video visit. It required patient-provider interaction for themedical decision making as documented below. Kenny Valadez is a 67 year old female seen for abdominal pain. Abdominal pain, worsened after meals, constant, associated with nausea and heartburn Constipation and diarrhea No weight loss No blood in the stool Abdominal pain is located around the umbilicus, not related to bowel movements Feels full Started on pantoprazole 40 mg BID, with worsening of the pain after 3 days stopped Last EGD and colonoscopy >10 years ago Gallbladder and appendix removed HISTORY REVIEWED (electronic chart updated): PAST MEDICAL HISTORY Diagnosis Date Arthritis Asthma CERVICAL DISC DISPLACMNT 02/03/2008 Degenerative disc disease Diabetes mellitus type 2, controlled (HCC) Herniated disc Migraines BELA (obstructive sleep apnea) Thyroid nodule Unspecified essential hypertension Essential hypertension PAST SURGICAL HISTORY Procedure Laterality Date ADENOIDECTOMY PRIMARY <AGE 12 Adenoidectomy APPENDECTOMY W/ exploratory lap BACK SURGERY HX CHOLECYSTECTOMY TONSILLECTOMY PRIMARY/SECONDARY <AGE 12 Tonsillectomy VAGINAL HYSTERECTOMY UTERUS 250 GM/< Hysterectomy, vaginal FAMILY HISTORY Problem Relation Age of Onset Heart Mother Allergies Mother Arthritis Mother Asthma Mother Genitourinary () Mother bladder suspension in her 50's Hearing Loss Mother Hypertension Mother Lipids Mother Osteoporosis Mother Heart Father Cancer Father sarcoma Diabetes Father Hearing Loss Father Hypertension Father Lipids Father Stroke Father TIA'S Heart Maternal Grandmother Heart Maternal Grandfather Heart Paternal Grandmother Diabetes Paternal Grandmother other (Goiter) Paternal Grandmother Heart Paternal Grandfather Cancer Paternal Aunt I lost 11 aunts and uncles Cancer Paternal Uncle I lost 11 aunts and uncles Diabetes Paternal Aunt Diabetes Maternal Uncle Headache Daughter migraines Social History Tobacco Use Smoking status: Never Smokeless tobacco: Never Tobacco comments: Secondhand smoke exposure x 30 years (Father and 1st ) Substance Use Topics Alcohol use: Yes Comment: rare Drug use: No Current Outpatient Medications Medication Sig insulin degludec (TRESIBA FLEXTOUCH U-200) 200 unit/mL (3 mL) injection INJECT SUBCUTANEOUSLY 100 UNITS DAILY AT NOON. 45 ML PER 90 DAY SUPPLY.E11.21 dulaglutide (TRULICITY) 3 mg/0.5 mL pen injector Inject 3 mg subcutaneously one time a week. insulin aspart U-100 (NOVOLOG FLEXPEN U-100 INSULIN) 100 unit/mL (3 mL) Inject subcutaneously TID meals per SS up to 15 units daily valsartan (DIOVAN) 80 mg tablet Take 0.5 tablets by mouth once daily. rosuvastatin (CRESTOR) 10 mg tablet Take 1 tablet by mouth daily at bedtime. insulin needles, DISPOSABLE, (BD INSULIN PEN NEEDLE UF) 31 gauge x 5/16 Use 4 pen needles daily blood sugar diagnostic (BLOOD GLUCOSE TEST) test strip Use as instructed; us 4 strips per day, IDDM, E11.29 ; using accuchek meter ASPIRIN 81 MG CHEWABLE TAB Take 81 mg by mouth every other day. No current facility-administered medications for this visit. ALLERGIES Allergen Reactions Animal Dander [Othe* Other: See Comments Itchy watery eyes, sneezing Environmental [Othe* Other: See Comments Itchy watery eyes, sneezing Steroids [Betametha* Answers submitted by the patient for this visit: Review of Systems Gastroenterology (Submitted on 12/28/2022) Fever: No Chills: No Night Sweats: No Unitentional Weight Change: No A Cough: No Difficulty Breathing: Yes Chest Pain: No Belly pain: Yes A feeling of fullness or have belly pain after eating: Yes Food getting stuck in your throat or chest after eating: Yes Nausea - that is, a feeling like you could vomit: Yes Regurgitation - that is, food or liquid coming back up into your throat or mouth without vomiting, or feel burning behind your breast bone: Yes Loss of appetite: No To throw up or vomit: Yes Blood in your stools: No Black tarry stools: No Loose or watery stools: Yes The feeling like you need to empty your bowels right away - that is, feel as if you would have an accident: Yes Bowel incontinence - that is, have an accident because you cannot make it to the bathroom in time: No Problems with straining while having bowel movements , hard or lumpy stools, or feel unfinished (that you have not passed all your stool): No Pain in rectum or anus during bowel movements: No Problems with jaundice - that is, yellow discoloration of your skin or eyes, now or in the past: No Problems with having to flush the toilet more than two times due to oily stool, or see stool floating with oil: No REVIEW OF SYSTEMS: As noted in HPI PHYSICAL EXAMINATION: VIDEO EXAM: (if completed, performed via video enabled technology) No exam performed ASSESSMENT: (K21.9) Gastroesophageal reflux disease without esophagitis (K57.90) Diverticulosis 64 year old with new onset abdominal pain and nausea IBS-like and GERD symptoms for 2 years Abdominal pain is more recent and needs investigation Differential is extensive including PUD, gastroparesis, inflammatory, vascular Will proceed with EGD and colonoscopy, if unremarkable, will consider CT A/P, doppler US, GES, glucose BT PLAN: - EGD with gastric and duodenal biopsies - Colonoscopy with TI exam and random colon bx - Sucralfate 1 g QID crushing tablets with water for 1 month - RTC after tests There are no Patient Instructions on file for this visit. I spent a total of 45 minutes on the date of the service which included [id number] patient care and completing clinical documentation Servando Reece MD documented in this encounterMer[facility]01-20-2023 Miscellaneous Notes* Telephone Encounter - Elis Timmons - 12/04/2022 2:43 PM EST Patient called. She has appt with Mary Kate Barber today. She said she forgot to have her blood workresults faxed over so Mary Kate can look at them today. She said we have to send a request to [facility] and have them fax the results over to us. The fax number is [phone]. Please advise. Thank you. Elis Timmons documented in this [facility]11-21-2022 Miscellaneous Notes* Telephone Encounter - Gaby Slater Ma - 10/05/2022 9:13 AM EST Pharmacy requesting refills as follows: Requested Prescriptions Pending Prescriptions Disp Refills insulin degludec (TRESIBA FLEXTOUCH U-200) 200 unit/mL (3 mL) injection [Pharmacy Med Name: TRESIBAFLEXTOUCH 200 UNIT/ML] 45 mL 3 Sig: INJECT SUBCUTANEOUSLY 100 UNITS DAILY AT NOON. 45 ML PER 90 DAY SUPPLY. Please review and advise. Gaby Slater Ma documented in this [facility]09-21-2022 Miscellaneous Notes* Telephone Encounter - Jamaica Napier LPN - 08/05/2022 12:59 PM EDT Faxed called office to get fax number [phone] * Telephone Encounter - Mary Kate Barber APRN.CNP - 08/05/2022 12:41 PM EDT Please fax yesterdays office note to PCP Dr. Wynn. Thank you documented in this [facility]09-20-2022 Instructions* Patient Instructions* Mary Kate Barber APRN.CNP - 08/04/2022 3:54 PM EDT Increase trulicity to 3 mg weekly. 2. Lower tresiba to 90 units daily. 3. Notify us if you have sugars under 70. 4. Follow up in 4 months. Sooner if needed 5. Schedule with gastroenterology and neurology Mary Kate Barber, MSN, SEWER MAINTENANCE SUPERVISOR, CITY DISPATCH SUPERVISOR-C, CDE Endocrinology [facility] Medical Office [facility]/[address], [address] [place], [place] [address] Fax: documented in this encounterMer[facility]09-20-2022 History of Present illness Narrative* Mary Kate Barber APRN.SHANNON - 08/04/2022 3:45 PM EDT Reason for Consultation: DM Type 2 Referring Physician: Luli Perdomo MD [id number] [facility] [id number] HISTORY OF PRESENT ILLNESS; Ms. Valadez is a 67 year old female presenting for follow up regarding DM Type 2. She was initially diagnosed with diabetes approx. 2000. She has been on insulin since at least age 55. LV 06/04/22 A1C today is 7.8. down from 8.7 History in addition to diabetes:HTN, HLD,nephropathy, peripheral neuropathy, obesity, allergies, thyroid nodule She is seeing personnel associate and reports she is allergic to almost everything (in the environment). She takes childrens liquid benadryl (syrup) and found claritin and other anti- histamines to be ineffective. Reports she is having tremors. She has ruled out hypoglycemia. Father had parkinson's Also reports aspirating during the night and has reflux. Has seen GI in the past but many years ago. She is under the care of nephrology, Dr. Perdomo States she is having a thyroid ultrasound ordered per PCP for nodule. +fhx of thyroid cancer She is euthyroid. Her current diabetes regimen is: Tresiba (u200 pen) 90 units daily.--taking 100 units at noon. trulicity 1.5 mg weekly Novolog per sliding scale novolog with the 3 main meals if needed:--rarely needs If Blood Glucose (mg/dL) is < 150 Give 0 units 151-200 Give 2 units 201-250 Give 3 units 251-300 Give 4 units 301-350 Give 5 units >351 Give 5 units * consuming a high carb meal take 5 units of novolog plus the sliding scale above . Previous DM medications: Glyburide actos janumet Glucotrol Metformin--stomach upset. Levemir--ineffective Regarding symptoms of hyperglycemia, she is not experiencing polyuria and polydipsia. Exercise:GURDEEP's Kenny is checking her blood glucose 1 -2 times daily. She did not bring a logbook today for review: BG ranges: 88 to 240 FBS 118 today Hypoglycemia frequency: rare Hypoglycemia awareness: Yes Overall, the patient has no acute complaints at this time. HTN: Intolerant to KALIE Recently started on an ARB--valsartan--but only taking 1/2 dose due to headaches. HLD: crestor 10 mg daily PAST MEDICAL HISTORY Diagnosis Date Arthritis Asthma CERVICAL DISC DISPLACMNT 02/03/2008 Degenerative disc disease Diabetes mellitus type 2, controlled (HCC) Herniated disc Migraines Unspecified essential hypertension Essential hypertension PAST SURGICAL HISTORY Procedure Laterality Date ADENOIDECTOMY PRIMARY <AGE 12 Adenoidectomy APPENDECTOMY W/ exploratory lap BACK SURGERY HX CHOLECYSTECTOMY TONSILLECTOMY PRIMARY/SECONDARY <AGE 12 Tonsillectomy VAGINAL HYSTERECTOMY UTERUS 250 GM/< Hysterectomy, vaginal FAMILY HISTORY Problem Relation Age of Onset Heart Mother Allergies Mother Arthritis Mother Asthma Mother Genitourinary () Mother bladder suspension in her 50's Hearing Loss Mother Hypertension Mother Lipids Mother Osteoporosis Mother Heart Father Cancer Father sarcoma Diabetes Father Hearing Loss Father Hypertension Father Lipids Father Stroke Father TIA'S Heart Maternal Grandmother Heart Maternal Grandfather Heart Paternal Grandmother Diabetes Paternal Grandmother other (Goiter) Paternal Grandmother Heart Paternal Grandfather Cancer Paternal Aunt I lost 11 aunts and uncles Cancer Paternal Uncle I lost 11 aunts and uncles Diabetes Paternal Aunt Diabetes Maternal Uncle Headache Daughter migraines Social History Tobacco Use Smoking status: Never Smokeless tobacco: Never Tobacco comments: Secondhand smoke exposure x 30 years (Father and 1st ) Substance Use Topics Alcohol use: Yes Comment: rare Drug use: No Current Outpatient Medications Medication Sig Dispense Refill insulin aspart U-100 (NOVOLOG FLEXPEN U-100 INSULIN) 100 unit/mL (3 mL) Inject subcutaneously TID meals per SS up to 15 units daily 15 mL 5 dulaglutide (TRULICITY) 1.5 mg/0.5 mL pen injector Inject 1.5 mg subcutaneously one time a week. 6 mL 3 insulin degludec (TRESIBA FLEXTOUCH U-200) 200 unit/mL (3 mL) injection Inject subcutaneously 90 units daily at noon (Patient taking differently: Inject subcutaneously 100 units daily at noon) 6 Pen 5 valsartan (DIOVAN) 80 mg tablet Take 0.5 tablets by mouth once daily. rosuvastatin (CRESTOR) 10 mg tablet Take 1 tablet by mouth daily at bedtime. insulin needles, DISPOSABLE, (BD INSULIN PEN NEEDLE UF) 31 gauge x 5/16 Use 4 pen needles daily 400 Each 3 blood sugar diagnostic (BLOOD GLUCOSE TEST) test strip Use as instructed; us 4 strips per day, IDDM, E11.29 ; using accuchek meter 400 Strip 3 ASPIRIN 81 MG CHEWABLE TAB Take 81 mg by mouth every other day. 0 No current facility-administered medications for this visit. Allergies As of Date: 08/04/2022 Allergen Noted Reaction ANIMAL DANDER [OTHER] 03/23/2012 Other: See Comments ENVIRONMENTAL [OTHER] 03/23/2012 Other: See Comments STEROIDS [BETAMETHASONE DIPROPION*01/31/2008 Fully Assessed 08/04/2022 REVIEW OF SYSTEMS: IAnswers submitted by the patient for this visit: Endocrine Review of Systems (Submitted on 08/01/2022) Fatigue: Yes Night Sweats: No Recent Unintentional Weight Change: No Skin Color Changes: No Post-Nasal Drip: Yes Thyroid Pain (lower neck): Yes Trouble Swallowing: Yes Vision Disturbance: Yes Leg Swelling: No Blood Clots?: No Leg Pain while walking?: Yes Difficulty Breathing?: Yes Heartburn: Yes Nausea: No Vomiting?: Yes Diarrhea: Yes Constipation: Yes Abdominal Pain: Yes Bone Pain?: Yes Muscle Aches: Yes Muscle Weakness: Yes Joint Pain or Stiffness: Yes Headaches: No Dizziness: No Numbness?: Yes Urgency to Urinate?: Yes Increased Urination?: Yes Slow or Small Urine Stream?: Yes Are your menstrual cycles regular?: No Have your menstrual cycles stopped?: Yes Flushing?: No Hot Flashes?: No Increased Thirst: Yes Change in Body Hair?: Yes Cold Intolerance: No Heat Intolerance?: No Core Review of Systems (Submitted on 08/01/2022) Night Sweats: No Recent Unintentional Weight Change: No Vision Disturbance: Yes Leg Swelling: No Difficulty Breathing?: Yes Nausea: No Diarrhea: Yes Muscle Aches: Yes Joint Pain or Stiffness: Yes Headaches: No Dizziness: No Fever : No Nasal Congestion: No Hearing Loss: No A Cough: No Irregular Heart Beat: Yes Black Tarry Stools: No Difficulty Urinating?: No Awaken at Night More Than Once to Urinate?: Yes Leg or Foot Discomfort at Night?: No A Rash: No Memory Loss: No Seizures: No PHYSICAL EXAM: BP 138/103 Pulse 95 Wt 90.7 kg (200 lb) SpO2 98% BMI 32.14 kg/m2 Physical Exam Constitutional: Appearance: Normal appearance. She is obese. Cardiovascular: Rate and Rhythm: Normal rate and regular rhythm. Pulmonary: Effort: Pulmonary effort is normal. Breath sounds: Normal breath sounds. Skin: General: Skin is warm and dry. Neurological: Mental Status: She is alert and oriented to person, place, and time. Psychiatric: Mood and Affect: Mood normal. Behavior: Behavior normal. DATA: Creatinine Date Value Ref Range Status 02/19/2021 0.88 0.58 - 0.96 mg/dL Final Hemoglobin A1C (%) Date Value 04/15/2012 10.8 Hemoglobin A1C (POCT) (%) Date Value 03/07/2021 8.7 ) No components found for: URINEALBUMIN No results found for: CHOL No results found for: HDL No results found for: LDL No results found for: TG IMPRESSION: Ms. Valadez is a 67 year old female here for evaluation of DM Type 2 complicated by hypertension, hyperlipidemia, peripheral neuropathy and nephropathy RECOMMENDATIONS: (E11.21, Z79.4) Type 2 diabetes mellitus with diabetic nephropathy, with long- term current use of insulin ([facility]) (primary encounter diagnosis) (E11.42, Z79.4) Type 2 diabetes mellitus with diabetic polyneuropathy, with long-term current use of insulin ([facility]) Comment: Glycemic control is improving. Titrate up trulicity and lower tresiba. Plan: dulaglutide (TRULICITY) 3 mg/0.5 mL pen injector, insulin degludec (TRESIBA FLEXTOUCH U-200) 200 unit/mL (3 mL) injection, HEMOGLOBIN A1C (POC) Increase trulicity to 3 mg weekly. Lower tresiba to 90 units daily. Notify us if you have sugars under 70. Follow up in 4 months. Sooner if needed Schedule with gastroenterology and neurology (I10) Essential hypertension Comment/Plan: Managed per PCP (E78.2) Mixed hyperlipidemia Comment/Plan: crestor per PCP (E66.9, Z68.32) Class 1 obesity with serious comorbidity and body mass index (BMI) of 32.0 to 32.9 in adult, unspecified obesity type Comment: Body mass index is 32.14 kg/m . Down 15 lb since February 2021 with dietary effort Plan: Encouraged increase dietary and exercise efforts as able (R25.1) Tremor Comment/Plan: CONSULT TO NEUROLOGY (K21.9) Gastroesophageal reflux disease without esophagitis Comment/Plan: CONSULT TO GASTROENTEROLOGY (K57.90) Diverticulosis Comment/Plan: CONSULT TO GASTROENTEROLOGY I spent a total of 30 minutes on the date of the service which included preparing to see the patient, [id number] patient care, completing clinical documentation, obtaining and/or reviewing separately obtained history, performing a medically appropriate examination, counseling and educating the pat ient/family/caregiver, ordering medications, tests, or procedures, and communicating results to thepatient/family/caregiver. Mary Kate Barber, MSN, SEWER MAINTENANCE SUPERVISOR, CITY DISPATCH SUPERVISOR-C, CDE Endocrinology [facility] Medical Office [facility]/[place] [address] Fax: documented in this encounterMer[facility]07-21-2022 Instructions* Patient Instructions* Mary Kate Barber APRN.CNP - 06/04/2022 10:28 AM EDT 1. Continue tresiba 90 units daily 2. Increase trulicity to 1.5 mg weekly 3. Novolog per a sliding scale at meals if needed: If Blood Glucose (mg/dL) is < 150 Give 0 units 151-200 Give 2 units 201-250 Give 3 units 251-300 Give 4 units 301-350 Give 5 units >351 Give 5 units * consuming a high carb meal take 5 units of novolog plus the sliding scale above . 4. Follow up in 2 months Mary Kate Barber, MSN, SEWER MAINTENANCE SUPERVISOR, CITY DISPATCH SUPERVISOR-C, CDE Endocrinology [facility] Medical Office [facility]/[address], [address] [place], [place] [address] Fax: documented in this encounterMercy [facility]07-21-2022 History of Present illness Narrative* Mary Kate Barber APRN.SHANNON - 06/04/2022 10:15 AM EDT Reason for Consultation: DM Type 2 Referring Physician: Luli Perdomo MD [address] [facility] [address] HISTORY OF PRESENT ILLNESS; Ms. Vlaadez is a 66 year old female presenting for follow up regarding DM Type 2. She was initially diagnosed with diabetes approx. 2000. She has been on insulin since at least age 55. LV 04/24/22 A1C 11.2 at PCP office in April History in addition to diabetes:HTN, HLD,nephropathy, peripheral neuropathy, obesity, allergies, thyroid nodule She is seeing personnel associate and reports she is allergic to almost everything (in the environment). She takes childrens liquid benadryl (syrup) and found claritin and other anti- histamines to be ineffective. She is under the care of nephrology, Dr. Perdomo Now taking a full valsartan tab and stopped her propranolol She has been trying to reduce simple sugars and consuming keto diet. Has cake and took 3 days to get diet back on track. Had 5 FF and BG went up to 260 Eating 3 meals daily States she is having a thyroid ultrasound ordered per PCP for nodule. +fhx of thyroid cancer She is euthyroid. Her current diabetes regimen is: Tresiba (u200 pen) 100 units daily at 3 pm trulicity 0.75 mg weekly Novolog: breakfast 10 units, lunch 10 units, dinner 10 units plus SS--lost SS and has been guessing; taking up to 25 units on occasion Plus add sliding scale novolog with the 3 main meals if needed: If Blood Glucose (mg/dL) is < 150 Add 0 units 151-200 Add 1 unit 201-250 Add 2 units 251-300 Add 3 units 301-350 Add 4 units 351-400 Add 5 units >400 Add 5 units and call if not improving Previous DM medications: Glyburide actos janumet Glucotrol Metformin--stomach upset. Levemir--ineffective Regarding symptoms of hyperglycemia, she is not experiencing polyuria and polydipsia. Exercise:ADL's Kenny is checking her blood glucose 5-6 times daily. She did not bring a logbook today for review: BG ranges: 83 -300's FBS 90-100's with good diet; otherwise 180's (after donut) Hypoglycemia frequency: denies Hypoglycemia awareness: Yes Overall, the patient has no acute complaints at this time. HTN: Intolerant to KALIE Recently started on an ARB--valsartan--but only taking 1/2 dose due to headaches. HLD: crestor 10 mg daily PAST MEDICAL HISTORY Diagnosis Date Arthritis Asthma CERVICAL DISC DISPLACMNT 02/03/2008 Degenerative disc disease Diabetes mellitus type 2, controlled (HCC) Herniated disc Migraines Unspecified essential hypertension Essential hypertension PAST SURGICAL HISTORY Procedure Laterality Date ADENOIDECTOMY PRIMARY <AGE 12 Adenoidectomy APPENDECTOMY W/ exploratory lap BACK SURGERY HX CHOLECYSTECTOMY TONSILLECTOMY PRIMARY/SECONDARY <AGE 12 Tonsillectomy VAGINAL HYSTERECTOMY UTERUS 250 GM/< Hysterectomy, vaginal FAMILY HISTORY Problem Relation Age of Onset Heart Mother Allergies Mother Arthritis Mother Asthma Mother Genitourinary () Mother bladder suspension in her 50's Hearing Loss Mother Hypertension Mother Lipids Mother Osteoporosis Mother Heart Father Cancer Father sarcoma Diabetes Father Hearing Loss Father Hypertension Father Lipids Father Stroke Father TIA'S Heart Maternal Grandmother Heart Maternal Grandfather Heart Paternal Grandmother Diabetes Paternal Grandmother other (Goiter) Paternal Grandmother Heart Paternal Grandfather Cancer Paternal Aunt I lost 11 aunts and uncles Cancer Paternal Uncle I lost 11 aunts and uncles Diabetes Paternal Aunt Diabetes Maternal Uncle Headache Daughter migraines Social History Tobacco Use Smoking status: Never Smoker Smokeless tobacco: Never Used Tobacco comment: Secondhand smoke exposure x 30 years (Father and 1st ) Substance Use Topics Alcohol use: Yes Comment: rare Drug use: No Current Outpatient Medications Medication Sig Dispense Refill valsartan (DIOVAN) 80 mg tablet Take 0.5 tablets by mouth once daily. rosuvastatin (CRESTOR) 10 mg tablet Take 1 tablet by mouth daily at bedtime. insulin degludec (TRESIBA FLEXTOUCH U-200) 200 unit/mL (3 mL) injection Inject subcutaneously 100 units daily at noon 6 Pen 5 dulaglutide (TRULICITY) 0.75 mg/0.5 mL pen injector Inject 0.75 mg subcutaneously one time a week. 4 Each 5 insulin needles, DISPOSABLE, (BD INSULIN PEN NEEDLE UF) 31 gauge x 5/16 Use 4 pen needles daily 400 Each 3 insulin aspart U-100 (NOVOLOG FLEXPEN U-100 INSULIN) 100 unit/mL (3 mL) Inject subcutaneously 10 units breakfast, 10 units lunch, 10 units dinner plus SS up to 45 units daily 15 mL 5 blood sugar diagnostic (BLOOD GLUCOSE TEST) test strip Use as instructed; us 4 strips per day, IDDM, E11.29 ; using accuchek meter 400 Strip 3 propranolol hcl(INDERAL LA 80 MG 24 HR CAP) 60 mg daily 0 ASPIRIN 81 MG CHEWABLE TAB Take 81 mg by mouth every other day. 0 No current facility-administered medications for this visit. Allergies As of Date: 06/04/2022 Allergen Noted Reaction ANIMAL DANDER [OTHER] 03/23/2012 Other: See Comments ENVIRONMENTAL [OTHER] 03/23/2012 Other: See Comments STEROIDS [BETAMETHASONE DIPROPION*01/31/2008 Fully Assessed 06/04/2022 REVIEW OF SYSTEMS: Answers for HPI/ROS submitted by the patient on 05/30/2022 Fatigue: Yes Night Sweats: No Recent Unintentional Weight Change: No Skin Color Changes: Yes Post-Nasal Drip: Yes Thyroid Pain (lower neck): Yes Trouble Swallowing: Yes Vision Disturbance: Yes Chest Pain: No Leg Swelling: No Blood Clots?: No Leg Pain while walking?: Yes Difficulty Breathing?: Yes Heartburn: Yes Nausea: Yes Vomiting?: Yes Diarrhea: Yes Constipation: Yes Abdominal Pain: Yes Bone Pain?: Yes Muscle Aches: Yes Muscle Weakness: Yes Joint Pain or Stiffness: Yes Headaches: Yes Dizziness: Yes Numbness?: Yes Urgency to Urinate?: Yes Increased Urination?: No Slow or Small Urine Stream?: No Have your menstrual cycles stopped?: Yes Flushing?: No Hot Flashes?: No Increased Thirst: Yes Change in Body Hair?: Yes Cold Intolerance: Yes Heat Intolerance?: No PHYSICAL EXAM: BP 139/82 Pulse 94 Resp 16 Ht 168 cm (5' 6.14) Wt 91.3 kg (201 lb 4.8 oz) SpO2 97% BMI 32.35 kg/m2 Physical Exam Constitutional: Appearance: Normal appearance. She is obese. Cardiovascular: Rate and Rhythm: Normal rate and regular rhythm. Pulmonary: Effort: Pulmonary effort is normal. Breath sounds: Normal breath sounds. Skin: General: Skin is warm and dry. Neurological: Mental Status: She is alert and oriented to person, place, and time. Psychiatric: Mood and Affect: Mood normal. Behavior: Behavior normal. DATA: Creatinine Date Value Ref Range Status 02/19/2021 0.88 0.58 - 0.96 mg/dL Final Hemoglobin A1C (%) Date Value 04/15/2012 10.8 Hemoglobin A1C (POCT) (%) Date Value 03/07/2021 8.7 ) No components found for: URINEALBUMIN No results found for: CHOL No results found for: HDL No results found for: LDL No results found for: TG IMPRESSION: Ms. Valadez is a 66 year old female here for evaluation of DM Type 2 complicated by hypertension, hyperlipidemia, peripheral neuropathy and nephropathy RECOMMENDATIONS: (E11.21, Z79.4) Type 2 diabetes mellitus with diabetic nephropathy, with long- term current use of insulin ([facility]) (primary encounter diagnosis) (E11.42, Z79.4) Type 2 diabetes mellitus with diabetic polyneuropathy, with long-term current use of insulin ([facility]) Comment: Glycemic control is improving. Encouraged her to be consistent with diet. Plan: insulin aspart U-100 (NOVOLOG FLEXPEN U-100 INSULIN) 100 unit/mL (3 mL), dulaglutide (TRULICITY) 1.5 mg/0.5 mL pen injector, insulin degludec (TRESIBA FLEXTOUCH U-200) 200 unit/mL (3 mL) injection Continue tresiba 90 units daily Increase trulicity to 1.5 mg weekly Novolog per a sliding scale at meals if needed: If Blood Glucose (mg/dL) is < 150 Give 0 units 151-200 Give 2 units 201-250 Give 3 units 251-300 Give 4 units 301-350 Give 5 units >351 Give 5 units * consuming a high carb meal take 5 units of novolog plus the sliding scale above . Follow up in 2 months (I10) Essential hypertension Comment/Plan: Managed per PCP (E78.2) Mixed hyperlipidemia Comment/Plan: crestor per PCP (E66.9, Z68.32) Class 1 obesity with serious comorbidity and body mass index (BMI) of 32.0 to 32.9 in adult, unspecified obesity type Comment: Body mass index is 32.35 kg/m . Down 15 lb since February 2021 with dietary effort Plan: Encouraged increase dietary and exercise efforts as able I spent a total of 30 minutes on the date of the service which included preparing to see the patient, [id number] patient care, completing clinical documentation, obtaining and/or reviewing separately obtained history, performing a medically appropriate examination, counseling and educating the pat ient/family/caregiver and ordering medications, tests, or procedures. Mary Kate Barber, MSN, SEWER MAINTENANCE SUPERVISOR, CITY DISPATCH SUPERVISOR-C, CDE Endocrinology [facility] Medical Office [facility]/[address] [place] [address] Fax: documented in this encounterMer[facility]22 Evaluation + Plan note Future Scheduled Tests Laboratory* Aspartate Aminotransferase 05/21/22 * ALT / SGPT 05/21/22 * Lipid Profile 05/21/22 Radiology* MA Mammo Screening Bilateral w/ Adalberto 04/28/22 * XR Hip Minimum 2 Views Right 05/12/22 * XR Sacroiliac Joints Minimum 3 Views 05/12/22 [facility] 07-07-2022 Miscellaneous Notes* Telephone Encounter - Jamaica Napier LPN - 05/21/2022 9:30 AM EDT Called and spoke with Kenny gwendolyn on my chart messages. States she had a in the family. Blood sugars are again increasing due to previous BS sent in she was staying away from sugar and wheat. Advised to send in BS via my chart for review * Telephone Encounter - Kori Manuel RN - 05/21/2022 8:08 AM EDT Images from the original note were not included. MS 2 Kenny Espino Rory Female, 66 year old, 1955 eMRN: [id number] (h) ... PCP: David Wynn Coverage: Mmo/Mmo Mhs Next Appt With ENDOCRINOLOGY (Mary Kate Barber APRN.CNP) 06/04/2022 at 10:15 AM This message is to inform you that the patient has not yet read the following message. (Notification date: May 19, 2022) Change to Tresiba From Mary Kate Barber APRN.CNP To Kenny Valadez Sent and Delivered 05/11/2022 12:57 PM Hi Kenny, I am happy to hear the blood sugars are looking better. I would not anticipate any change to bowel habits from levemir to tresiba. Ensure you are drinking plenty of water and consuming vegetables and fiber. Discuss ongoing concerns regarding constipation with primary care as well. Thank you, Mary Kate Previous Messages ----- Message ----- From:Jamaica Arndt Sent:05/08/2022 3:42 PM EDT To:Kenny Valadez Subject:Change to Tresiba Charlie Cox Thank you for your request. This message has been forwarded to the provider for review. Please Note: Our goal is to respond within 3 business days. If you feel your message is urgent in nature, please call the physician's office instead. ----- Message ----- From:Kenny Valadez Sent:05/08/2022 3:26 PM EDT To:Mary Kate Barber APRN.CNP Subject:Change to Tresiba Hello I have changed from Levemir to Tresiba as you prescribed. My numbers are excellent, however my regular bowel movements are non existant. I was constipated for 5 days and the last to used a suppository to go just a little. Do you have any suggestions and is this common from this medication? Thank you. Kenny Valadez [facility] [place] MyChart User Last Read On Kenny Valadez Not Read documented in this encounterMercy [facility]06-16-2022 Miscellaneous Notes* Telephone Encounter - Gaby Slater Ma - 04/30/2022 2:45 PM EDT Received approval from [employer] for Tresiba Flextouch u200. Effective: 04/30/22 until 04/29/23. Patient aware Closed * Telephone Encounter - Jamaica Napier LPN - 04/30/2022 1:34 PM EDT Signed form faxed to [facility] [employer] [phone] * Telephone Encounter - Mary Kate Barber APRN.CNP - 04/30/2022 1:23 PM EDT Form signed. Thank you * Telephone Encounter - Kori Manuel RN - 04/30/2022 11:36 AM EDT Received a faxed PA form directly form patient's insurance ([employer]) Completed and placed in providers in box for signature and date. Then we will fax to [phone]. * Telephone Encounter - Jamaica Napier LPN - 04/30/2022 9:53 AM EDT Called and spoke with patient states medical [employer] or what ever card she had scanned in the office is her coverage asked if this was prescription card states yes. Patient will reach out to insurance to verify where PA needs to be sent and [facility] to speak with pharmacy. She will call office with information * Telephone Encounter - Kori Manuel RN - 04/29/2022 12:31 PM EDT Received notification back from [facility] that they do not process PA requests for this patient's prescriptions. At this time it is unclear who we should be processing the PA through. Will reach out to patient to clarify what insurance covers her prescriptions. Is the correct insurance on file at the pharmacy? * Telephone Encounter - Jamaica Napier LPN - 04/28/2022 2:52 PM EDT [facility] form signed, requested OV Note attached and faxed Transmission ok * Telephone Encounter - Mary Kate Barber APRN.CNP - 04/28/2022 2:46 PM EDT Form signed. Thank you * Telephone Encounter - Kori Manuel RN - 04/28/2022 2:34 PM EDT Received notification that patient does not participate with [employer]. Patient participates with [facility]. Completed a new PA form for [facility]. Placed in providers in box for signature and date. * Telephone Encounter - Kori Manuel RN - 04/28/2022 8:58 AM EDT Will await approval / denial. * Telephone Encounter - Jamaica aNpier LPN - 04/28/2022 8:49 AM EDT Signed form faxed to [employer] [facility] last OV note attached Transmission ok * Telephone Encounter - Mary Kate Barber APRN.CNP - 04/28/2022 7:50 AM EDT Form signed. Thank you * Telephone Encounter - Kori Manuel RN - 04/27/2022 3:53 PM EDT Completed a PA form for [facility] for RX Tresiba Flextouch 200 units/mL. Placed form in providers in box for signature and date. We will then fax the form, notes and insurance to [employer] at [phone]. documented in this encounterMercy [facility]06-13-2022 Miscellaneous Notes* Telephone Encounter - Kori Manuel RN - 04/27/2022 3:52 PM EDT Completing PA as requested by provider. Please see telephone encounter from today 04/27/2022 for status. Closed. * Telephone Encounter - Su Whiting - 04/27/2022 3:51 PM EDT Patient calling to check on status. * Telephone Encounter - Mary Kate Barber APRN.CNP - 04/27/2022 10:16 AM EDT Please do PA for tresiba. She needs concentrated insulin due to higher insulin requirements. Thank you * Telephone Encounter - Tessy Lofton MA - 04/27/2022 10:06 AM EDT Patient phones requesting refills as follows: Pharmacy asking for replace Rx Pending Prescriptions Disp Refills TRESIBA FLEXTOUCH U-200 INSULIN 200 UNIT/ML (3 ML) SUBCUTANEOUS PEN 6 Pen 5 Sig: INJECT SUBCUTANEOUSLY 100 UNITS DAILY AT NOON KIARA: Yes Please review and advise. Tessy Lofton MA documented in this encounterMercy Health [facility]06-10-2022 Instructions* Patient Instructions* Mary Kate Barber APRN.CNP - 04/24/2022 1:22 PM EDT 1. Stop levemir 2. Continue trulicity 0.75 mg once weekly. 3. Start tresiba taking 100 units daily at noon (long acting/ replaces levemir) 4. Start novolog Breakfast 10 units Lunch 10 units Dinner 10 units Plus add sliding scale novolog with the 3 main meals if needed: If Blood Glucose (mg/dL) is < 150 Add 0 units 151-200 Add 1 unit 201-250 Add 2 units 251-300 Add 3 units 301-350 Add 4 units 351-400 Add 5 units >400 Add 5 units and call if not improving 5. Check sugar before eating (3x day) and bedtime. *send me your sugars in a week. 6. Follow up in 4-6 wks. Mary Kate Barber MSN, SEWER MAINTENANCE SUPERVISOR, CITY DISPATCH SUPERVISOR-C, CDE Endocrinology [facility] Medical Office [facility]/[address] [place] [address] Fax: documented in this encounterMercy Health [facility]06-10-2022 History of Present illness Narrative* Mary Kate Barber APRN.CNP - 04/24/2022 1:05 PM EDT Reason for Consultation: DM Type 2 Referring Physician: Luli Perdomo MD [address] [facility] [id number] HISTORY OF PRESENT ILLNESS; Ms. Valadez is a 66 year old female presenting for follow up regarding DM Type 2. She was initially diagnosed with diabetes approx. 2000. She has been on insulin since at least age 55. LV 03/07/21 A1C 11.2 at PCP office a week ago per patient. States she has not been to see us or her PCP for about a year. 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 She is seeing personnel associate and reports she is allergic to almost everything (in the environment). She takes childrens liquid benadryl (syrup) and found claritin and other anti- histamines to be ineffective. She tried the insulin regimen I have her at the last visit but felt dizziness and it interfered with work and she stopped novolog. She denied hypoglycemia at the time of symptoms. Her insurance preferred levemir but she felt it did not work as well and BG was higher. Now states levemir is not covered but does not know what is preferred. She is under the care of nephrology, Dr. Perdomo States she is having a thyroid ultrasound ordered per PCP for nodule. +fhx of thyroid cancer She is euthyroid. History in addition to diabetes:HTN, HLD,nephropathy, peripheral neuropathy, obesity Her current diabetes regimen is: Tresiba (u200 pen) 100 units daily--been taking levemir (100 units BID) trulicity 0.75 mg weekly Novolog: breakfast 10 units, lunch 10 units, dinner 10 units plus Ss --HAS NOT BEEN TAKING Plus add sliding scale novolog with the 3 main meals if needed: If Blood Glucose (mg/dL) is < 150 Add 0 units 151-200 Add 1 unit 201-250 Add 2 units 251-300 Add 3 units 301-350 Add 4 units 351-400 Add 5 units >400 Add 5 units and call if not improving Previous DM medications: Glyburide actos janumet Glucotrol Metformin--stomach upset. Levemir--ineffective Regarding symptoms of hyperglycemia, she is not experiencing polyuria and polydipsia. Exercise:Mil Cox is checking her blood glucose 2 times daily. She did not bring a logbook today for review: BG ranges 300 and higher. Hypoglycemia frequency: denies Hypoglycemia awareness: Yes Overall, the patient has no acute complaints at this time. HTN: Intolerant to KALIE Recently started on an ARB--valsartan--but only taking 1/2 dose due to headaches. HLD: Started on crestor 10 mg daily today. PAST MEDICAL HISTORY Diagnosis Date Arthritis Asthma CERVICAL DISC DISPLACMNT 02/03/2008 Degenerative disc disease Diabetes mellitus type 2, controlled (HCC) Herniated disc Migraines Unspecified essential hypertension Essential hypertension PAST SURGICAL HISTORY Procedure Laterality Date ADENOIDECTOMY PRIMARY <AGE 12 Adenoidectomy APPENDECTOMY W/ exploratory lap BACK SURGERY HX CHOLECYSTECTOMY TONSILLECTOMY PRIMARY/SECONDARY <AGE 12 Tonsillectomy VAGINAL HYSTERECTOMY UTERUS 250 GM/< Hysterectomy, vaginal FAMILY HISTORY Problem Relation Age of Onset Heart Mother Allergies Mother Arthritis Mother Asthma Mother Genitourinary () Mother bladder suspension in her 50's Hearing Loss Mother Hypertension Mother Lipids Mother Osteoporosis Mother Heart Father Cancer Father sarcoma Diabetes Father Hearing Loss Father Hypertension Father Lipids Father Stroke Father TIA'S Heart Maternal Grandmother Heart Maternal Grandfather Heart Paternal Grandmother Diabetes Paternal Grandmother other (Goiter) Paternal Grandmother Heart Paternal Grandfather Cancer Paternal Aunt I lost 11 aunts and uncles Cancer Paternal Uncle I lost 11 aunts and uncles Diabetes Paternal Aunt Diabetes Maternal Uncle Headache Daughter migraines Social History Tobacco Use Smoking status: Never Smoker Smokeless tobacco: Never Used Tobacco comment: Secondhand smoke exposure x 30 years (Father and 1st ) Substance Use Topics Alcohol use: Yes Comment: rare Drug use: No Current Outpatient Medications Medication Sig Dispense Refill dulaglutide (TRULICITY) 0.75 mg/0.5 mL pen injector Inject 0.75 mg subcutaneously one time a week. insulin needles, DISPOSABLE, (BD INSULIN PEN NEEDLE UF) 31 gauge x 5/16 Use one daily with tresiba; ok to sub per insurance 100 Each 3 blood sugar diagnostic (BLOOD GLUCOSE TEST) test strip Use as instructed; us 4 strips per day, IDDM, E11.29 ; using accuchek meter 400 Strip 3 propranolol hcl(INDERAL LA 80 MG 24 HR CAP) 60 mg daily 0 ASPIRIN 81 MG CHEWABLE TAB Take 81 mg by mouth every other day. 0 Insulin Syringe-Needle U-100 (BD INSULIN SYRINGE ULTRA-FINE) 0.5 mL 31 gauge x 5/16 USE AND DISCARD 3 SYRINGES DAILY 300 Each 0 losartan (COZAAR) 25 mg tablet Take 1 tablet by mouth once daily. insulin degludec (TRESIBA FLEXTOUCH U-200) 200 unit/mL (3 mL) injection Inject 100 Units subcutaneously daily at bedtime. 6 Pen 5 insulin aspart U-100 (NOVOLOG U-100 INSULIN ASPART) 100 unit/mL Inject subcutaneously 10 units breakfast, 10 units lunch, 10 units dinner plus SS up to 45 units daily 2 Vial 5 albuterol HFA (PROAIR HFA) 90 mcg/actuation inhaler 2 Puffs every 4 hours as needed for Wheezing/Shortness of Breath. Take as directed 1 Inhaler 5 No current facility-administered medications for this visit. Allergies As of Date: 04/24/2022 Allergen Noted Reaction ANIMAL DANDER [OTHER] 03/23/2012 Other: See Comments ENVIRONMENTAL [OTHER] 03/23/2012 Other: See Comments STEROIDS [BETAMETHASONE DIPROPION*01/31/2008 Fully Assessed 04/24/2022 REVIEW OF SYSTEMS: Answers for HPI/ROS submitted by the patient on 04/19/2022 Fatigue: Yes Skin Color Changes: Yes Post-Nasal Drip: Yes Thyroid Pain (lower neck): Yes Trouble Swallowing: Yes Blood Clots?: No Leg Pain while walking?: Yes Heartburn: Yes Vomiting?: Yes Constipation: No Abdominal Pain: Yes Bone Pain?: Yes Muscle Weakness: Yes Numbness?: Yes Urgency to Urinate?: Yes Increased Urination?: Yes Slow or Small Urine Stream?: Yes Are your menstrual cycles regular?: No Are your menstrual cycles irregular?: No Have your menstrual cycles stopped?: Yes Flushing?: No Hot Flashes?: No Increased Thirst: Yes Change in Body Hair?: Yes Cold Intolerance: No Heat Intolerance?: Yes Night Sweats: No Recent Unintentional Weight Change: No Vision Disturbance: Yes Leg Swelling: No Difficulty Breathing?: Yes Nausea: No Muscle Aches: Yes Joint Pain or Stiffness: Yes Fever : No Nasal Congestion: No Hearing Loss: No A Cough: No Irregular Heart Beat: No Black Tarry Stools: No Difficulty Urinating?: No Awaken at Night More Than Once to Urinate?: Yes Leg or Foot Discomfort at Night?: Yes A Rash: No Memory Loss: No Seizures: No PHYSICAL EXAM: BP 164/103 (BP Site: Left Arm, BP Position: Sitting, BP Cuff Size: Regular Adult) Pulse 74 Wt 92.6 kg (204 lb 3.2 oz) SpO2 96% BMI 32.96 kg/m2 Physical Exam Constitutional: Appearance: Normal appearance. She is obese. Cardiovascular: Rate and Rhythm: Normal rate and regular rhythm. Pulmonary: Effort: Pulmonary effort is normal. Breath sounds: Normal breath sounds. Skin: General: Skin is warm and dry. Neurological: Mental Status: She is alert and oriented to person, place, and time. Psychiatric: Mood and Affect: Mood normal. Behavior: Behavior normal. DATA: Creatinine Date Value Ref Range Status 02/19/2021 0.88 0.58 - 0.96 mg/dL Final Hemoglobin A1C (%) Date Value 04/15/2012 10.8 Hemoglobin A1C (POCT) (%) Date Value 03/07/2021 8.7 ) No components found for: URINEALBUMIN No results found for: CHOL No results found for: HDL No results found for: LDL No results found for: TG *Care Everywhere reviewed March and April 2022 Serum creatinine 1.05 GFR 52 Serum glucose 351 Urine protein ratio 247 TSH 2.77 Free T4 1.31 Free T3 2.84 TC 201 HDL 35 LDL 110 TG 282 IMPRESSION: Ms. Valadez is a 66 year old female here for evaluation of DM Type 2 complicated by hypertension, hyperlipidemia, peripheral neuropathy and nephropathy RECOMMENDATIONS: (E11.21, Z79.4) Type 2 diabetes mellitus with diabetic nephropathy, with long- term current use of insulin ([facility]) (primary encounter diagnosis) Comment: glycemic control is poor. She is heavy on basal insulin and not taking any prandial. Will add novolog. Believe symptoms she had previously were due to persistent hyperglycemia and should gradually improve as long as she does not over treat those episodes as hypoglycemia. We discussed the timing of her insulin and BG monitoring. Plan: insulin degludec (TRESIBA FLEXTOUCH U-200) 200 unit/mL (3 mL) injection, dulaglutide (TRULICITY) 0.75 mg/0.5 mL pen injector, insulin needles, DISPOSABLE, (BD INSULIN PEN NEEDLE UF) 31 gauge x 5/16, insulin aspart U-100 (NOVOLOG FLEXPEN U-100 INSULIN) 100 unit/mL (3 mL) Stop levemir Continue trulicity 0.75 mg once weekly. Start tresiba taking 100 units daily at noon (long acting/ replaces levemir) Start novolog Breakfast 10 units Lunch 10 units Dinner 10 units Plus add sliding scale novolog with the 3 main meals if needed: If Blood Glucose (mg/dL) is < 150 Add 0 units 151-200 Add 1 unit 201-250 Add 2 units 251-300 Add 3 units 301-350 Add 4 units 351-400 Add 5 units >400 Add 5 units and call if not improving Check sugar before eating (3x day) and bedtime. *send me your sugars in a week. Follow up in 4-6 wks. (E11.42, Z79.4) Type 2 diabetes mellitus with diabetic polyneuropathy, with long-term current use of insulin (HCC) Comment: glycemic control is poor Plan: See above . (I10) Essential hypertension Comment: BP high today; only taking 1/2 her dose of valsartan Plan: Managed per PCP; advised her to contact them. (E78.2) Mixed hyperlipidemia Comment/Plan: started a statin today per PCP (E66.9, Z68.32) Class 1 obesity with serious comorbidity and body mass index (BMI) of 32.0 to 32.9 in adult, unspecified obesity type Comment: Body mass index is 32.96 kg/m . Plan: Encouraged increase dietary and exercise efforts as able I spent a total of 35 minutes on the date of the service which included preparing to see the patient, [id number] patient care, completing clinical documentation, obtaining and/or reviewing separately obtained history, performing a medically appropriate examination, counseling and educating the pat ient/family/caregiver and ordering medications, tests, or procedures. Mary Kate Barber, MSN, SEWER MAINTENANCE SUPERVISOR, CITY DISPATCH SUPERVISOR-C, CDE Endocrinology [facility] Medical Office [facility]/[address] [place] [address] Fax: documented in this encounterMercy Health Defiance Hospital05-23-2022 Miscellaneous Notes* Telephone Encounter - Su Duff Pss - 04/06/2022 2:46 PM EDT Scheduled * Telephone Encounter - Jamaica Napier LPN - 04/06/2022 8:32 AM EDT rx sent PSS: She does not have any appt upcoming. Please contact her to set up follow up. Thank you Requester: Pharmacy Last Visit in Endocrinology: Provider name: Mary Kate Barber CNP , Date 03/07/2021 Next Scheduled Appt in Endo: Visit date not found Last Refill: 03/07/21 Number of Refills given: 3 Pending Prescriptions Disp Refills INSULIN SYRINGE U-100 WITH NEEDLE 0.5 ML 31 GAUGE X 5/16 100 Each 3 Sig: USE AND DISCARD 3 SYRINGES DAILY KIARA: No Please review and advise. Jamaica Napier LPN documented in this encounterMercy Health Defiance HospitalEvaluation + Plan note Future Appointments Appointment Date:05/12/2022 03:15:00 PM Scheduled Provider:DAVID WYNN DO Location:[facility] Appointment Type: OV Follow Up Future Scheduled Tests Laboratory* Microalbumin Level Urine 04/14/22 Radiology* US Thyroid 04/14/22 [facility] Evaluation + Plan note Future Appointments Appointment Date:05/12/2022 03:15:00 PM Scheduled Provider:DAVID WYNN DO Location:[facility] Appointment Type: OV Follow Up Future Scheduled Tests Laboratory* Aspartate Aminotransferase 05/21/22 * ALT / SGPT 05/21/22 * Lipid Profile 05/21/22 Radiology* MA Mammo Screening Bilateral w/ Adalberto 04/28/22 [facility] Evaluation + Plan note Future Appointments Appointment Date:11/20/2022 03:30:00 PM Scheduled Provider: Location:[facility] Appointment Type:MA Mammogram Screening Bilateral w/ Adalberto Future Scheduled Tests Laboratory* Aspartate Aminotransferase 05/21/22 * ALT / SGPT 05/21/22 * Lipid Profile 05/21/22 Radiology* MA Mammo Screening Bilateral w/ Adalberto 11/20/22 * MA Mammo Screening Bilateral w/ Adalberto 04/28/22 * XR Hip Minimum 2 Views Right 05/12/22 * XR Sacroiliac Joints Minimum 3 Views 05/12/22 [facility] Evaluation note* Diagnosis Type 2 diabetes mellitus with diabetic nephropathy, with long-term current use of insulin (HCC) [facility] Diagnosis Type 2 diabetes mellitus with diabetic nephropathy, with long-term current use of insulin (HCC)- Primary Type 2 diabetes mellitus with diabetic polyneuropathy, with long-term current use of insulin (HCC) Essential hypertension Unspecified essential hypertension Mixed hyperlipidemia Class 1 obesity with serious comorbidity and body mass index (BMI) of 32.0 to 32.9 in adult, unspecified obesity type [facility]* Diagnosis Type 2 diabetes mellitus with diabetic nephropathy, with long-term current use of insulin (HCC) documented in this encounter [facility]* Diagnosis Type 2 diabetes mellitus with diabetic nephropathy, with long-term current use of insulin (HCC)- Primary Type 2 diabetes mellitus with diabetic polyneuropathy, with long-term current use of insulin (HCC) Essential hypertension Unspecified essential hypertension Mixed hyperlipidemia Class 1 obesity with serious comorbidity and body mass index (BMI) of 32.0 to 32.9 in adult, unspecified obesity type [facility]* Diagnosis Type 2 diabetes mellitus with diabetic nephropathy, with long-term current use of insulin (HCC)- Primary Type 2 diabetes mellitus with diabetic polyneuropathy, with long-term current use of insulin (HCC) Essential hypertension Unspecified essential hypertension Mixed hyperlipidemia Class 1 obesity with serious comorbidity and body mass index (BMI) of 32.0 to 32.9 in adult, unspecified obesity type Tremor Abnormal involuntary movements Gastroesophageal reflux disease without esophagitis Esophageal reflux Diverticulosis Diverticulosis of colon (without mention of hemorrhage) [facility] Diagnosis Type 2 diabetes mellitus with diabetic nephropathy, with long-term current use of insulin (HCC) Type 2 diabetes mellitus with diabetic polyneuropathy, with long-term current use of insulin (HCC) [facility] Diagnosis Gastroesophageal reflux disease without esophagitis Esophageal reflux Diverticulosis Diverticulosis of colon (without mention of hemorrhage) [facility] Diagnosis Periumbilical abdominal pain- Primary Abdominal pain, periumbilic Diarrhea, unspecified type [facility] Diagnosis Type 2 diabetes mellitus with diabetic nephropathy, with long-term current use of insulin (HCC) Type 2 diabetes mellitus with diabetic polyneuropathy, with long-term current use of insulin (HCC) [facility] Diagnosis Congestive heart failure, unspecified HF chronicity, unspecified heart failure type (HCC) [I50.9 (ICD-10-CM)]- Primary [facility] Diagnosis 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 Cardiomyopathy, ischemic Other specified forms of chronic ischemic heart disease Chronic systolic congestive heart failure (HCC) Chronic systolic heart failure Primary hypertension Unspecified essential hypertension Mixed hyperlipidemia [facility] Diagnosis Chronic systolic congestive heart failure (HCC)- Primary Chronic systolic heart failure Cardiomyopathy, ischemic Other specified forms of chronic ischemic heart disease Primary hypertension Unspecified essential hypertension Mixed hyperlipidemia [facility] noteNo assessment information [facility] Work [facility]: Evaluation note* Diagnosis Type 2 diabetes mellitus with diabetic nephropathy, with long-term current use of insulin (HCC) Type 2 diabetes mellitus with diabetic polyneuropathy, with long-term current use of insulin (HCC) [facility] Diagnosis 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) Cardiomyopathy, ischemic Other specified forms of chronic ischemic heart disease [facility] Diagnosis 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 Cardiomyopathy, ischemic Other specified forms of chronic ischemic heart disease Chronic systolic congestive heart failure (HCC) Chronic systolic heart failure Essential hypertension Unspecified essential hypertension Mixed hyperlipidemia Abnormal echocardiogram Nonspecific (abnormal) findings on radiological and other examination of other intrathoracic organs [facility] Diagnosis 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) Cardiomyopathy, ischemic Other specified forms of chronic ischemic heart disease [facility] Diagnosis Cardiomyopathy, ischemic Other specified forms of chronic ischemic heart disease [facility] Diagnosis Type 2 diabetes mellitus with diabetic nephropathy, with long-term current use of insulin (HCC) Type 2 diabetes mellitus with diabetic polyneuropathy, with long-term current use of insulin (HCC) [facility] Diagnosis Type 2 diabetes mellitus with diabetic nephropathy, with long-term current use of insulin (HCC) Type 2 diabetes mellitus with diabetic polyneuropathy, with long-term current use of insulin (HCC) [facility] Diagnosis Type 2 diabetes mellitus with diabetic nephropathy, with long-term current use of insulin (HCC) Type 2 diabetes mellitus with diabetic polyneuropathy, with long-term current use of insulin (HCC) [facility]* Diagnosis Chronic systolic congestive heart failure (HCC)- Primary Chronic systolic heart failure Cardiomyopathy, ischemic Other specified forms of chronic ischemic heart disease Primary hypertension Unspecified essential hypertension [facility] Diagnosis 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 Cardiomyopathy, ischemic Other specified forms of chronic ischemic heart disease Chronic systolic congestive heart failure (HCC) Chronic systolic heart failure Essential hypertension Unspecified essential hypertension Mixed hyperlipidemia Statin intolerance Other drug allergy [facility]* Diagnosis Type 2 diabetes mellitus with diabetic nephropathy, with long-term current use of insulin (HCC) Type 2 diabetes mellitus with diabetic polyneuropathy, with long-term current use of insulin ([facility] Diagnosis 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) Cardiomyopathy, ischemic Other specified forms of chronic ischemic heart disease [facility]* Diagnosis Type 2 diabetes mellitus with diabetic nephropathy, with long-term current use of insulin (HCC)- Primary Type 2 diabetes mellitus with diabetic polyneuropathy, with long-term current use of insulin (HCC) Hypoglycemia due to type 2 diabetes mellitus (HCC) Nontoxic single thyroid nodule Nontoxic uninodular goiter Essential hypertension Unspecified essential hypertension Mixed hyperlipidemia Obesity, Class I, BMI 30-34.9 Obesity, unspecified [facility]* Diagnosis Dry eye syndrome of both eyes- Primary Pseudophakia Lens replaced by other means Other chronic allergic conjunctivitis of both eyes Type 2 diabetes mellitus with both eyes affected by mild nonproliferative retinopathy without macular edema, with long-term current use of insulin ([facility]) [facility]* Diagnosis Type 2 diabetes mellitus with diabetic nephropathy, with long-term current use of insulin (HCC) Type 2 diabetes mellitus with diabetic polyneuropathy, with long-term current use of insulin ([facility]) [facility] Diagnosis 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) Cardiomyopathy, ischemic Other specified forms of chronic ischemic heart disease Chronic systolic congestive heart failure (HCC) Chronic systolic heart failure [facility]* Diagnosis Dry eye syndrome of both eyes- Primary Pseudophakia Lens replaced by other means Type 2 diabetes mellitus with both eyes affected by mild nonproliferative retinopathy without macular edema, with long-term current use of insulin ([facility]) Other chronic allergic conjunctivitis of both eyes [facility]* Diagnosis Chronic systolic congestive heart failure (HCC)- Primary Chronic systolic heart failure Cardiomyopathy, ischemic Other specified forms of chronic ischemic heart disease Primary hypertension Unspecified essential hypertension [facility]* Diagnosis Type 2 diabetes mellitus with diabetic microalbuminuria, with long-term current use of insulin ([facility])- Primary Type 2 diabetes mellitus with diabetic polyneuropathy, with long-term current use of insulin ([facility]) Hypoglycemia due to type 2 diabetes mellitus (HCC) Nontoxic single thyroid nodule Nontoxic uninodular goiter Essential hypertension Unspecified essential hypertension Mixed hyperlipidemia Obesity, Class I, BMI 30-34.9 Obesity, unspecified Type 2 diabetes mellitus with stage 3a chronic kidney disease, with long-term current use of insulin ([facility]) [facility] Diagnosis 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 Cardiomyopathy, ischemic Other specified forms of chronic ischemic heart disease Chronic systolic congestive heart failure (HCC) Chronic systolic heart failure Essential hypertension Unspecified essential hypertension Mixed hyperlipidemia Pericardial effusion Unspecified disease of pericardium Statin intolerance Other drug allergy [facility]* Diagnosis Type 2 diabetes mellitus with diabetic microalbuminuria, with long-term current use of insulin (HCC) Type 2 diabetes mellitus with diabetic polyneuropathy, with long-term current use of insulin ([facility]) [facility]* Diagnosis Chronic systolic congestive heart failure (HCC)- Primary Chronic systolic heart failure Cardiomyopathy, ischemic Other specified forms of chronic ischemic heart disease Primary hypertension Unspecified essential hypertension [facility]* Diagnosis Dry eye syndrome of both eyes- Primary Pseudophakia Lens replaced by other means Type 2 diabetes mellitus with both eyes affected by mild nonproliferative retinopathy without macular edema, with long-term current use of insulin (HCC) Other chronic allergic conjunctivitis of both eyes [facility]* Diagnosis Type 2 diabetes mellitus with diabetic microalbuminuria, with long-term current use of insulin (HCC)- Primary Type 2 diabetes mellitus with diabetic polyneuropathy, with long-term current use of insulin (HCC) Type 2 diabetes mellitus with diabetic nephropathy, with long-term current use of insulin (HCC) Hypoglycemia due to type 2 diabetes mellitus (HCC) Nontoxic single thyroid nodule Nontoxic uninodular goiter Essential hypertension Unspecified essential hypertension Mixed hyperlipidemia Obesity, Class I, BMI 30-34.9 Obesity, unspecified [facility]* Diagnosis Pain- Primary Generalized pain [facility]* Diagnosis Type 2 diabetes mellitus with diabetic microalbuminuria, with long-term current use of insulin (HCC) Type 2 diabetes mellitus with diabetic polyneuropathy, with long-term current use of insulin (HCC) Type 2 diabetes mellitus with diabetic nephropathy, with long-term current use of insulin (HCC) [facility]* Diagnosis Pain Generalized pain [facility]* Diagnosis Chronic pain in right shoulder- Primary Pain in joint, shoulder region Arm mass, left [facility]* Diagnosis Chronic systolic congestive heart failure (HCC)- Primary Chronic systolic heart failure Cardiomyopathy, ischemic Other specified forms of chronic ischemic heart disease Primary hypertension Unspecified essential hypertension Mixed hyperlipidemia [facility]* Diagnosis Arm mass, left [facility]* Diagnosis 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 Cardiomyopathy, ischemic Other specified forms of chronic ischemic heart disease Chronic systolic congestive heart failure (HCC) Chronic systolic heart failure Essential hypertension Unspecified essential hypertension Mixed hyperlipidemia Statin intolerance Other drug allergy [facility]* Diagnosis Arm mass, left- Primary Arm mass, left [facility]* Diagnosis Type 2 diabetes mellitus with diabetic microalbuminuria, with long-term current use of insulin (HCC)- Primary Type 2 diabetes mellitus with diabetic polyneuropathy, with long-term current use of insulin (HCC) Type 2 diabetes mellitus with diabetic nephropathy, with long-term current use of insulin (HCC) Hypoglycemia due to type 2 diabetes mellitus (HCC) Nontoxic single thyroid nodule Nontoxic uninodular goiter Essential hypertension Unspecified essential hypertension Mixed hyperlipidemia Obesity, Class I, BMI 30-34.9 Obesity, unspecified [facility]* Diagnosis Herpes zoster without complications- Primary Herpes zoster without mention of complication [facility]* Diagnosis 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) Cardiomyopathy, ischemic Other specified forms of chronic ischemic heart disease Chronic systolic congestive heart failure (HCC) Chronic systolic heart failure Type 2 diabetes mellitus with both eyes affected by mild nonproliferative retinopathy without macular edema, with long-term current use of insulin (HCC)- Primary [facility]* Diagnosis Arm mass, left- Primary [facility]* Diagnosis Arm mass, left- Primary Arm mass, left [facility]* Diagnosis Type 2 diabetes mellitus with diabetic microalbuminuria, with long-term current use of insulin (HCC) Type 2 diabetes mellitus with diabetic polyneuropathy, with long-term current use of insulin (HCC) Arm mass, left [facility]* Diagnosis Lymphangioma, any site Arm mass, left [facility]* Diagnosis 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) Arm mass, left [facility]* Diagnosis 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- Primary Cardiomyopathy, ischemic Other specified forms of chronic ischemic heart disease Chronic systolic congestive heart failure (HCC) Chronic systolic heart failure Essential hypertension Unspecified essential hypertension Mixed hyperlipidemia Statin intolerance Other drug allergy [facility]* Diagnosis URI, acute- Primary Acute upper respiratory infections of unspecified site Sore throat Acute pharyngitis SOB (shortness of breath) Shortness of breath Acute cough [facility]* Diagnosis Left arm pain Pain in limb [facility]* Diagnosis Lower resp. 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, with long-term current use of insulin (HCC) Hypoglycemia due to type 2 diabetes mellitus (HCC) Nontoxic single thyroid nodule Nontoxic uninodular goiter Essential hypertension Unspecified essential hypertension Mixed hyperlipidemia Obesity, Class I, BMI 30-34.9 Obesity, unspecified [facility] Diagnosis 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 [facility]* Diagnosis Type 2 diabetes mellitus with diabetic microalbuminuria, with long-term current use of insulin (HCC)- Primary Type 2 diabetes mellitus with diabetic polyneuropathy, with long-term current use of insulin (HCC) Hypoglycemia due to type 2 diabetes mellitus (HCC) Nontoxic single thyroid nodule Nontoxic uninodular goiter Essential hypertension Unspecified essential hypertension Mixed hyperlipidemia Obesity, Class I, BMI 30-34.9 Obesity, unspecified [facility]* Diagnosis Type 2 diabetes mellitus with diabetic polyneuropathy, with long-term current use of insulin (HCC)- Primary [facility]* Diagnosis Cardiomyopathy, ischemic Other specified forms of chronic ischemic heart disease Chronic systolic congestive heart failure (HCC) Chronic systolic heart failure [facility]* Diagnosis Cardiomyopathy, ischemic Other specified forms of chronic ischemic heart disease Chronic systolic congestive heart failure (HCC) Chronic systolic heart failure [facility]* Diagnosis Type 2 diabetes mellitus with diabetic polyneuropathy, with long-term current use of insulin (HCC)- Primary [facility]* Diagnosis Diarrhea, unspecified type- Primary [facility] Narrative No data available for this section [facility] Discharge instructions No data available for this section [facility] Progress note No data available for this section [facility] Reason for referral (narrative)* Outpatient Procedure (Routine) - Authorized Specialty Diagnoses / Procedures Referred By Moira t Referred To Contact [facility] Diagnoses Periumbilical abdominal pain Diarrhea, unspecified type Procedures COLONOSCOPY DIAGNOSTIC COLONOSCOPY FLX DX W/COLLJ SPEC WHEN PFRMD Servando Reece MD [address] [phone] [place] [phone] Referral ID Status Reason Start Date Expiration Date Visits Requested Visits Authorized [id number] Authorized Auto-Generat ed Referral 12/29/2022 12/29/2023 1 1 * Outpatient Procedure (Routine) - Authorized Specialty Diagnoses / Procedures Referred By Moira jo Referred To Contact [facility] DISEASE EMPIRE Diagnoses Periumbilical abdominal pain Diarrhea, unspecified type Procedures EGD DIAGNOSTIC ESOPHAGOGASTRODUODENOSC OPY TRANSORAL DIAGNOSTIC Servando Reece MD [address] [place] [address] [address] Referral ID Status Reason Start Date Expiration Date Visits Requested Visits Authorized [id number] Authorized Auto-Generat ed Referral 12/29/2022 12/29/2023 1 1 [facility] for referral (narrative)* Outpatient Procedure (Routine) - Authorized Specialty Diagnoses / Procedures Referred By Contac t Referred To Contact HE[facility] VASCULAR EMPIRE Diagnoses Chronic systolic congestive heart failure (HCC) Cardiomyopathy, ischemic Procedures ECHO ECHO TTHRC R-T 2D W/WOM-MODE COMPL SPEC&COLR D Yared Dodd MD [address] [place] [id number] [facility] Vascular [address] [place] [phone] Referral ID Status Reason Start Date Expiration Date Visits Requested Visits Authorized [id number] Authorized Auto-Generat ed Referral 05/03/2023 05/02/2024 1 1 [facility] for referral (narrative)* Outpatient Procedure (Routine) - New Request Specialty Diagnoses / Procedures Referred By Contac t Referred To Contact [facility] Diagnoses 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) Cardiomyopathy, ischemic Procedures ECHO ECHO TTHRC R-T 2D W/WOM-MODE COMPL SPEC&COLR D Yared Dodd MD [address] [place] [address] [facility] [place] [address] [place] [address] Referral ID Status Reason Start Date Expiration Date Visits Requested Visits Authorized [id number] New Request Auto-Generat ed Referral 07/17/2024 06/12/2025 1 1 [facility] for referral (narrative)* Diagnostic Procedure Only (Routine) - Closed Specialty Diagnoses / Procedures Referred By Contac t Referred To Contact XR IMAGING Diagnoses Pain Procedures XR SHOULDER GENERAL 3V OR MORE AP/TRUE AP/OTHER RIGHT RADEX SHOULDER COMPLETE MINIMUM 2 VIEWS Lilia Obregon PA-C [address] [place] [address] [place] [address] Referral ID Status Reason Start Date Expiration Date V isits Requested Visits Authorized [id number] Closed Auto-Generate d Referral 09/25/2024 10/25/2025 1 1 [facility] for referral (narrative)* Diagnostic Procedure Only (Routine) - Pending Review Specialty Diagnoses / Procedures Referred By Contac t Referred To Contact MOLECULAR & FUNCTIONAL IMAGING Diagnoses 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) Procedures NM CARDIAC PERF STRESS/PHARM MYOCARDIAL SPECT MULTIPLE STUDIES Yared Dodd MD [address] [address] Molecular & Functional Imaging [address] [phone] Referral ID Status Reason Start Date Expiration Date Visits Requested Visits Authorized [id number] Pending Review Auto-Generat ed Referral 12/11/2024 01/10/2026 1 1 [facility] for referral (narrative)* Diagnostic Procedure Only (Routine) - Closed Specialty Diagnoses / Procedures Referred By Contac t Referred To Contact US IMAGING Diagnoses Arm mass, left Procedures US EXTREMITY MASS/FLUID COLLECTION LEFT Sushil Hawkins MD [address] [place] [address] [place] [address] Referral ID Status Reason Start Date Expiration Date V isits Requested Visits Authorized [id number] Closed Auto-Generate d Referral 12/05/2024 01/04/2026 1 1 * Consult, Test, Treat (Routine) - Authorized Specialty Diagnoses / Procedures Referred By Contac t Referred To Contact General Surgery Diagnoses Arm mass, left Procedures CONSULT TO GENERAL SURGERY OFFICE/OUTPATIENT [facility] 60 MINUTES Sushil Hawkins MD [address] [place] [address] Phil Lawton MD [address] [place] [address] Referral ID Status Reason Start Date Expiration Date Visits Requested Visits Authorized [id number] Authorized PCP Requested Referral 12/05/2024 12/05/2025 1 1 [facility] for visit Narrative* Diagnostic Procedure Only (Routine) - Closed Specialty Diagnoses / Procedures Referred By Contac t Referred To Contact US IMAGING Diagnoses Arm mass, left Procedures US EXTREMITY MASS/FLUID COLLECTION LEFT Sushil Hawkins MD [address] [place] [address] [facility] [address] Referral ID Status Reason Start Date Expiration Date V isits Requested Visits Authorized [id number] Closed Auto-Generate d Referral 12/05/2024 01/04/2026 1 1 [facility] Auth/Cert (Routine) Specialty Diagnoses / Procedures Referred By Contac t Referred To Contact Diagnoses Arm mass, left Arm mass, left [R22.32] Procedures BIOPSY MUSCLE PERCUTANEOUS NEEDLE BIOPSY MUSCLE, PERCUTANEOUS NEEDLE [facility] [address] [place] [address] Referral ID Status Reason Start Date Expiration Date Visits Re quested Visits Authorized [id number] 1 1 [facility] Reason for Referral Specialty Diagnoses / Procedures Referred By Contac t Referred To Contact [facility] Diagnoses Chronic pain in right shoulder Procedures CONSULT TO PHYSICAL THERAPY PHYSICAL THERAPY EVALUATION HIGH COMPLEX 45 MINS Lilia Obregon PA-C [address] [place] [address] [facility] [address] [place] [address] Referral ID Status Reason Start Date Expiration Date Visits Requested Visits Authorized [id number] Pending Review Auto-Generat ed Referral 10/23/2024 10/23/2025 1 1 Specialty Diagnoses / Procedures Referred By Contac t Referred To Contact Gastroenterology Diagnoses Gastroesophageal reflux disease without esophagitis Diverticulosis Procedures CONSULT TO GASTROENTEROLOGY OFFICE/OUTPATIENT [facility] 60-74 MINUTES Mary Kate Barber, JEREMIAH.MANAGER NEWS [address] [address] Referral ID Status Reason Start Date Expiration Date Visits Requested Visits Authorized [id number] Pending Review PCP Requested Referral 08/04/2022 08/04/2023 1 1 Specialty Diagnoses / Procedures Referred By Contac t Referred To Contact Neurology Diagnoses Tremor Procedures CONSULT TO NEUROLOGY OFFICE/OUTPATIENT [facility] 60-74 MINUTES Mary Kate Barber, JEREMIAH.MANAGER NEWS [address] [address] Referral ID Status Reason Start Date Expiration Date Visits Requested Visits Authorized [id number] Pending Review PCP Requested Referral 08/04/2022 08/04/2023 1 1 Advance Directives Latest Code Status on File Code Status Date Activated Date Inactivated Comments Full Code 04/08/2023 1:16 AM 04/13/2023 9:20 PM Full Code Order Discussed With: Patient Surrogate Decision Maker Latest Code Status on File Code Status Date Activated Date Inactivated Comments Full Code 04/08/2023 1:16 AM 04/13/2023 9:20 PM Advance Directive Response Recorded Date/ Time Living Will No May 03, 2023 8:55am Power of Piece Goods Packer No May 03 8:55am Advance Directives on File No May 03, 2023 8:55am Latest Code Status on File Code Status Date Activated Date Inactivated Comments Full Code 04/08/2023 1:16 AM 04/13/2023 9:20 PM Question Answer Comments Full Code Order Discussed With: Patient Surrogate Decision Maker Date Activated Date Inactivated Comments 04/08/2023 1:16 AM 04/13/2023 9:20 PM Question Answer Comments Full Code Order Discussed With: PatientSurrogate Decision Maker Date Activated Date Inactivated Comments 04/08/2023 1:16 AM 04/13/2023 9:20 PM Question Answer Comments Full Code Order Discussed With: PatientSurrogate Decision Maker Chief Complaint and Reason for Visit Chief Complaint STEMI, PCI w/coronar y stenting STEMI, PCI w/coronary stenting Chief Complaint STEMI, PCI w/coronar y stenting STEMI, PCI w/coronary stenting STEMI, PCI w/coronary stenting Chief Complaint STEMI, PCI w/coronar y stenting STEMI, PCI w/coronary stenting STEMI, PCI w/coronary stenting DIABETES/CARDIAC STEMI, PCI w/coronary stenting Chief Complaint STEMI, PCI w/coronar y stenting STEMI, PCI w/coronary stenting STEMI, PCI w/coronary stenting DIABETES/CARDIAC STEMI, PCI w/coronary stenting STEMI, PCI w/coronary stenting Summary Purpose Family History No Family History Records Found Additional Source Comments Source Comments (unrecognize d section and content) In the event this informatio n is protected by the Federal Confidentiality of Alcohol and Drug Abuse Patient Records regulations: The Federal rules restrict any use of the information to criminally investigate or prosecute any alcohol or drug abuse patient.[facility] HospitalIn the event this information is protected by the Federal Confidentiality of Alcohol and Drug Abuse Patient Records regulations: The Federal rules restrict any use of the information to criminally investigate or prosecute any alcohol or drug abuse patient.[facility] HospitalIn the event this information is protected by the Federal Confidentiality of Alcohol and Drug Abuse Patient Records regulations: The Federal rules restrict any use of the information to criminally investigate or prosecute any alcohol or drug abuse patient.[facility] HospitalIn the event this information is protected by the Federal Confidentiality of Alcohol and Drug Abuse Patient Records regulations: The Federal rules restrict any use of the information to criminally investigate or prosecute any alcohol or drug abuse patient.[facility] HospitalIn the event this information is protected by the Federal Confidentiality of Alcohol and Drug Abuse Patient Records regulations: The Federal rules restrict any use of the information to criminally investigate or prosecute any alcohol or drug abuse patient.[facility] HospitalIn the event this information is protected by the Federal Confidentiality of Alcohol and Drug Abuse Patient Records regulations: The Federal rules restrict any use of the information to criminally investigate or prosecute any alcohol or drug abuse patient.[facility] HospitalIn the event this information is protected by the Federal Confidentiality of Alcohol and Drug Abuse Patient Records regulations: The Federal rules restrict any use of the information to criminally investigate or prosecute any alcohol or drug abuse patient.[facility] HospitalIn the event this information is protected by the Federal Confidentiality of Alcohol and Drug Abuse Patient Records regulations: The Federal rules restrict any use of the information to criminally investigate or prosecute any alcohol or drug abuse patient.[facility] HospitalIn the event this information is protected by the Federal Confidentiality of Alcohol and Drug Abuse Patient Records regulations: The Federal rules restrict any use of the information to criminally investigate or prosecute any alcohol or drug abuse patient.[facility] HospitalIn the event this information is protected by the Federal Confidentiality of Alcohol and Drug Abuse Patient Records regulations: The Federal rules restrict any use of the information to criminally investigate or prosecute any alcohol or drug abuse patient.[facility] HospitalIn the event this information is protected by the Federal Confidentiality of Alcohol and Drug Abuse Patient Records regulations: The Federal rules restrict any use of the information to criminally investigate or prosecute any alcohol or drug abuse patient.[facility] HospitalIn the event this information is protected by the Federal Confidentiality of Alcohol and Drug Abuse Patient Records regulations: The Federal rules restrict any use of the information to criminally investigate or prosecute any alcohol or drug abuse patient.[facility] HospitalIn the event this information is protected by the Federal Confidentiality of Alcohol and Drug Abuse Patient Records regulations: The Federal rules restrict any use of the information to criminally investigate or prosecute any alcohol or drug abuse patient.[facility] HospitalIn the event this information is protected by the Federal Confidentiality of Alcohol and Drug Abuse Patient Records regulations: The Federal rules restrict any use of the information to criminally investigate or prosecute any alcohol or drug abuse patient.[facility] HospitalIn the event this information is protected by the Federal Confidentiality of Alcohol and Drug Abuse Patient Records regulations: The Federal rules restrict any use of the information to criminally investigate or prosecute any alcohol or drug abuse patient.[facility] HospitalIn the event this information is protected by the Federal Confidentiality of Alcohol and Drug Abuse Patient Records regulations: The Federal rules restrict any use of the information to criminally investigate or prosecute any alcohol or drug abuse patient.[facility] HospitalIn the event this information is protected by the Federal Confidentiality of Alcohol and Drug Abuse Patient Records regulations: The Federal rules restrict any use of the information to criminally investigate or prosecute any alcohol or drug abuse patient.[facility] HospitalIn the event this information is protected by the Federal Confidentiality of Alcohol and Drug Abuse Patient Records regulations: The Federal rules restrict any use of the information to criminally investigate or prosecute any alcohol or drug abuse patient.[facility] HospitalIn the event this information is protected by the Federal Confidentiality of Alcohol and Drug Abuse Patient Records regulations: The Federal rules restrict any use of the information to criminally investigate or prosecute any alcohol or drug abuse patient.[facility] HospitalIn the event this information is protected by the Federal Confidentiality of Alcohol and Drug Abuse Patient Records regulations: The Federal rules restrict any use of the information to criminally investigate or prosecute any alcohol or drug abuse patient.[facility] HospitalIn the event this information is protected by the Federal Confidentiality of Alcohol and Drug Abuse Patient Records regulations: The Federal rules restrict any use of the information to criminally investigate or prosecute any alcohol or drug abuse patient.[facility] HospitalIn the event this information is protected by the Federal Confidentiality of Alcohol and Drug Abuse Patient Records regulations: The Federal rules restrict any use of the information to criminally investigate or prosecute any alcohol or drug abuse patient.[facility] HospitalIn the event this information is protected by the Federal Confidentiality of Alcohol and Drug Abuse Patient Records regulations: The Federal rules restrict any use of the information to criminally investigate or prosecute any alcohol or drug abuse patient.[facility] HospitalIn the event this information is protected by the Federal Confidentiality of Alcohol and Drug Abuse Patient Records regulations: The Federal rules restrict any use of the information to criminally investigate or prosecute any alcohol or drug abuse patient.[facility] HospitalIn the event this information is protected by the Federal Confidentiality of Alcohol and Drug Abuse Patient Records regulations: The Federal rules restrict any use of the information to criminally investigate or prosecute any alcohol or drug abuse patient.[facility] HospitalIn the event this information is protected by the Federal Confidentiality of Alcohol and Drug Abuse Patient Records regulations: The Federal rules restrict any use of the information to criminally investigate or prosecute any alcohol or drug abuse patient.[facility] HospitalIn the event this information is protected by the Federal Confidentiality of Alcohol and Drug Abuse Patient Records regulations: The Federal rules restrict any use of the information to criminally investigate or prosecute any alcohol or drug abuse patient.[facility] HospitalIn the event this information is protected by the Federal Confidentiality of Alcohol and Drug Abuse Patient Records regulations: The Federal rules restrict any use of the information to criminally investigate or prosecute any alcohol or drug abuse patient.[facility] HospitalIn the event this information is protected by the Federal Confidentiality of Alcohol and Drug Abuse Patient Records regulations: The Federal rules restrict any use of the information to criminally investigate or prosecute any alcohol or drug abuse patient.[facility] HospitalIn the event this information is protected by the Federal Confidentiality of Alcohol and Drug Abuse Patient Records regulations: The Federal rules restrict any use of the information to criminally investigate or prosecute any alcohol or drug abuse patient.[facility] HospitalIn the event this information is protected by the Federal Confidentiality of Alcohol and Drug Abuse Patient Records regulations: The Federal rules restrict any use of the information to criminally investigate or prosecute any alcohol or drug abuse patient.[facility] HospitalIn the event this information is protected by the Federal Confidentiality of Alcohol and Drug Abuse Patient Records regulations: The Federal rules restrict any use of the information to criminally investigate or prosecute any alcohol or drug abuse patient.[facility] HospitalIn the event this information is protected by the Federal Confidentiality of Alcohol and Drug Abuse Patient Records regulations: The Federal rules restrict any use of the information to criminally investigate or prosecute any alcohol or drug abuse patient.[facility] HospitalIn the event this information is protected by the Federal Confidentiality of Alcohol and Drug Abuse Patient Records regulations: The Federal rules restrict any use of the information to criminally investigate or prosecute any alcohol or drug abuse patient.[facility] HospitalIn the event this information is protected by the Federal Confidentiality of Alcohol and Drug Abuse Patient Records regulations: The Federal rules restrict any use of the information to criminally investigate or prosecute any alcohol or drug abuse patient.[facility] HospitalIn the event this information is protected by the Federal Confidentiality of Alcohol and Drug Abuse Patient Records regulations: The Federal rules restrict any use of the information to criminally investigate or prosecute any alcohol or drug abuse patient.[facility] HospitalIn the event this information is protected by the Federal Confidentiality of Alcohol and Drug Abuse Patient Records regulations: The Federal rules restrict any use of the information to criminally investigate or prosecute any alcohol or drug abuse patient.[facility] HospitalIn the event this information is protected by the Federal Confidentiality of Alcohol and Drug Abuse Patient Records regulations: The Federal rules restrict any use of the information to criminally investigate or prosecute any alcohol or drug abuse patient.[facility] HospitalIn the event this information is protected by the Federal Confidentiality of Alcohol and Drug Abuse Patient Records regulations: The Federal rules restrict any use of the information to criminally investigate or prosecute any alcohol or drug abuse patient.[facility] HospitalIn the event this information is protected by the Federal Confidentiality of Alcohol and Drug Abuse Patient Records regulations: The Federal rules restrict any use of the information to criminally investigate or prosecute any alcohol or drug abuse patient.[facility] HospitalIn the event this information is protected by the Federal Confidentiality of Alcohol and Drug Abuse Patient Records regulations: The Federal rules restrict any use of the information to criminally investigate or prosecute any alcohol or drug abuse patient.[facility] HospitalIn the event this information is protected by the Federal Confidentiality of Alcohol and Drug Abuse Patient Records regulations: The Federal rules restrict any use of the information to criminally investigate or prosecute any alcohol or drug abuse patient.[facility] HospitalIn the event this information is protected by the Federal Confidentiality of Alcohol and Drug Abuse Patient Records regulations: The Federal rules restrict any use of the information to criminally investigate or prosecute any alcohol or drug abuse patient.[facility] HospitalIn the event this information is protected by the Federal Confidentiality of Alcohol and Drug Abuse Patient Records regulations: The Federal rules restrict any use of the information to criminally investigate or prosecute any alcohol or drug abuse patient.[facility] HospitalIn the event this information is protected by the Federal Confidentiality of Alcohol and Drug Abuse Patient Records regulations: The Federal rules restrict any use of the information to criminally investigate or prosecute any alcohol or drug abuse patient.[facility] HospitalIn the event this information is protected by the Federal Confidentiality of Alcohol and Drug Abuse Patient Records regulations: The Federal rules restrict any use of the information to criminally investigate or prosecute any alcohol or drug abuse patient.[facility] HospitalIn the event this information is protected by the Federal Confidentiality of Alcohol and Drug Abuse Patient Records regulations: The Federal rules restrict any use of the information to criminally investigate or prosecute any alcohol or drug abuse patient.[facility] HospitalIn the event this information is protected by the Federal Confidentiality of Alcohol and Drug Abuse Patient Records regulations: The Federal rules restrict any use of the information to criminally investigate or prosecute any alcohol or drug abuse patient.[facility] HospitalIn the event this information is protected by the Federal Confidentiality of Alcohol and Drug Abuse Patient Records regulations: The Federal rules restrict any use of the information to criminally investigate or prosecute any alcohol or drug abuse patient.[facility] HospitalIn the event this information is protected by the Federal Confidentiality of Alcohol and Drug Abuse Patient Records regulations: The Federal rules restrict any use of the information to criminally investigate or prosecute any alcohol or drug abuse patient.[facility] HospitalIn the event this information is protected by the Federal Confidentiality of Alcohol and Drug Abuse Patient Records regulations: The Federal rules restrict any use of the information to criminally investigate or prosecute any alcohol or drug abuse patient.[facility] HospitalIn the event this information is protected by the Federal Confidentiality of Alcohol and Drug Abuse Patient Records regulations: The Federal rules restrict any use of the information to criminally investigate or prosecute any alcohol or drug abuse patient.[facility] HospitalIn the event this information is protected by the Federal Confidentiality of Alcohol and Drug Abuse Patient Records regulations: The Federal rules restrict any use of the information to criminally investigate or prosecute any alcohol or drug abuse patient.[facility] HospitalIn the event this information is protected by the Federal Confidentiality of Alcohol and Drug Abuse Patient Records regulations: The Federal rules restrict any use of the information to criminally investigate or prosecute any alcohol or drug abuse patient.[facility] HospitalIn the event this information is protected by the Federal Confidentiality of Alcohol and Drug Abuse Patient Records regulations: The Federal rules restrict any use of the information to criminally investigate or prosecute any alcohol or drug abuse patient.[facility] HospitalIn the event this information is protected by the Federal Confidentiality of Alcohol and Drug Abuse Patient Records regulations: The Federal rules restrict any use of the information to criminally investigate or prosecute any alcohol or drug abuse patient.[facility] HospitalIn the event this information is protected by the Federal Confidentiality of Alcohol and Drug Abuse Patient Records regulations: The Federal rules restrict any use of the information to criminally investigate or prosecute any alcohol or drug abuse patient.[facility] HospitalIn the event this information is protected by the Federal Confidentiality of Alcohol and Drug Abuse Patient Records regulations: The Federal rules restrict any use of the information to criminally investigate or prosecute any alcohol or drug abuse patient.[facility] HospitalIn the event this information is protected by the Federal Confidentiality of Alcohol and Drug Abuse Patient Records regulations: The Federal rules restrict any use of the information to criminally investigate or prosecute any alcohol or drug abuse patient.[facility] HospitalIn the event this information is protected by the Federal Confidentiality of Alcohol and Drug Abuse Patient Records regulations: The Federal rules restrict any use of the information to criminally investigate or prosecute any alcohol or drug abuse patient.[facility] HospitalIn the event this information is protected by the Federal Confidentiality of Alcohol and Drug Abuse Patient Records regulations: The Federal rules restrict any use of the information to criminally investigate or prosecute any alcohol or drug abuse patient.[facility] HospitalIn the event this information is protected by the Federal Confidentiality of Alcohol and Drug Abuse Patient Records regulations: The Federal rules restrict any use of the information to criminally investigate or prosecute any alcohol or drug abuse patient.[facility] HospitalIn the event this information is protected by the Federal Confidentiality of Alcohol and Drug Abuse Patient Records regulations: The Federal rules restrict any use of the information to criminally investigate or prosecute any alcohol or drug abuse patient.[facility] HospitalIn the event this information is protected by the Federal Confidentiality of Alcohol and Drug Abuse Patient Records regulations: The Federal rules restrict any use of the information to criminally investigate or prosecute any alcohol or drug abuse patient.[facility] HospitalIn the event this information is protected by the Federal Confidentiality of Alcohol and Drug Abuse Patient Records regulations: The Federal rules restrict any use of the information to criminally investigate or prosecute any alcohol or drug abuse patient.[facility] HospitalIn the event this information is protected by the Federal Confidentiality of Alcohol and Drug Abuse Patient Records regulations: The Federal rules restrict any use of the information to criminally investigate or prosecute any alcohol or drug abuse patient.[facility] HospitalIn the event this information is protected by the Federal Confidentiality of Alcohol and Drug Abuse Patient Records regulations: The Federal rules restrict any use of the information to criminally investigate or prosecute any alcohol or drug abuse patient.[facility] HospitalIn the event this information is protected by the Federal Confidentiality of Alcohol and Drug Abuse Patient Records regulations: The Federal rules restrict any use of the information to criminally investigate or prosecute any alcohol or drug abuse patient.[facility] HospitalIn the event this information is protected by the Federal Confidentiality of Alcohol and Drug Abuse Patient Records regulations: The Federal rules restrict any use of the information to criminally investigate or prosecute any alcohol or drug abuse patient.[facility] HospitalIn the event this information is protected by the Federal Confidentiality of Alcohol and Drug Abuse Patient Records regulations: The Federal rules restrict any use of the information to criminally investigate or prosecute any alcohol or drug abuse patient.[facility] HospitalIn the event this information is protected by the Federal Confidentiality of Alcohol and Drug Abuse Patient Records regulations: The Federal rules restrict any use of the information to criminally investigate or prosecute any alcohol or drug abuse patient.[facility] HospitalIn the event this information is protected by the Federal Confidentiality of Alcohol and Drug Abuse Patient Records regulations: The Federal rules restrict any use of the information to criminally investigate or prosecute any alcohol or drug abuse patient.[facility] HospitalIn the event this information is protected by the Federal Confidentiality of Alcohol and Drug Abuse Patient Records regulations: The Federal rules restrict any use of the information to criminally investigate or prosecute any alcohol or drug abuse patient.[facility] HospitalIn the event this information is protected by the Federal Confidentiality of Alcohol and Drug Abuse Patient Records regulations: The Federal rules restrict any use of the information to criminally investigate or prosecute any alcohol or drug abuse patient.[facility] HospitalIn the event this information is protected by the Federal Confidentiality of Alcohol and Drug Abuse Patient Records regulations: The Federal rules restrict any use of the information to criminally investigate or prosecute any alcohol or drug abuse patient.[facility] HospitalIn the event this information is protected by the Federal Confidentiality of Alcohol and Drug Abuse Patient Records regulations: The Federal rules restrict any use of the information to criminally investigate or prosecute any alcohol or drug abuse patient.[facility] HospitalIn the event this information is protected by the Federal Confidentiality of Alcohol and Drug Abuse Patient Records regulations: The Federal rules restrict any use of the information to criminally investigate or prosecute any alcohol or drug abuse patient.[facility] HospitalIn the event this information is protected by the Federal Confidentiality of Alcohol and Drug Abuse Patient Records regulations: The Federal rules restrict any use of the information to criminally investigate or prosecute any alcohol or drug abuse patient.[facility] HospitalIn the event this information is protected by the Federal Confidentiality of Alcohol and Drug Abuse Patient Records regulations: The Federal rules restrict any use of the information to criminally investigate or prosecute any alcohol or drug abuse patient.[facility] HospitalIn the event this information is protected by the Federal Confidentiality of Alcohol and Drug Abuse Patient Records regulations: The Federal rules restrict any use of the information to criminally investigate or prosecute any alcohol or drug abuse patient.[facility] HospitalIn the event this information is protected by the Federal Confidentiality of Alcohol and Drug Abuse Patient Records regulations: The Federal rules restrict any use of the information to criminally investigate or prosecute any alcohol or drug abuse patient.[facility] HospitalIn the event this information is protected by the Federal Confidentiality of Alcohol and Drug Abuse Patient Records regulations: The Federal rules restrict any use of the information to criminally investigate or prosecute any alcohol or drug abuse patient.[facility] HospitalIn the event this information is protected by the Federal Confidentiality of Alcohol and Drug Abuse Patient Records regulations: The Federal rules restrict any use of the information to criminally investigate or prosecute any alcohol or drug abuse patient.[facility] HospitalIn the event this information is protected by the Federal Confidentiality of Alcohol and Drug Abuse Patient Records regulations: The Federal rules restrict any use of the information to criminally investigate or prosecute any alcohol or drug abuse patient.[facility] HospitalIn the event this information is protected by the Federal Confidentiality of Alcohol and Drug Abuse Patient Records regulations: The Federal rules restrict any use of the information to criminally investigate or prosecute any alcohol or drug abuse patient.[facility] HospitalIn the event this information is protected by the Federal Confidentiality of Alcohol and Drug Abuse Patient Records regulations: The Federal rules restrict any use of the information to criminally investigate or prosecute any alcohol or drug abuse patient.[facility] HospitalIn the event this information is protected by the Federal Confidentiality of Alcohol and Drug Abuse Patient Records regulations: The Federal rules restrict any use of the information to criminally investigate or prosecute any alcohol or drug abuse patient.[facility] HospitalIn the event this information is protected by the Federal Confidentiality of Alcohol and Drug Abuse Patient Records regulations: The Federal rules restrict any use of the information to criminally investigate or prosecute any alcohol or drug abuse patient.[facility] HospitalIn the event this information is protected by the Federal Confidentiality of Alcohol and Drug Abuse Patient Records regulations: The Federal rules restrict any use of the information to criminally investigate or prosecute any alcohol or drug abuse patient.[facility] HospitalIn the event this information is protected by the Federal Confidentiality of Alcohol and Drug Abuse Patient Records regulations: The Federal rules restrict any use of the information to criminally investigate or prosecute any alcohol or drug abuse patient.[facility] HospitalIn the event this information is protected by the Federal Confidentiality of Alcohol and Drug Abuse Patient Records regulations: The Federal rules restrict any use of the information to criminally investigate or prosecute any alcohol or drug abuse patient.[facility] HospitalIn the event this information is protected by the Federal Confidentiality of Alcohol and Drug Abuse Patient Records regulations: The Federal rules restrict any use of the information to criminally investigate or prosecute any alcohol or drug abuse patient.[facility] HospitalIn the event this information is protected by the Federal Confidentiality of Alcohol and Drug Abuse Patient Records regulations: The Federal rules restrict any use of the information to criminally investigate or prosecute any alcohol or drug abuse patient.[facility] HospitalIn the event this information is protected by the Federal Confidentiality of Alcohol and Drug Abuse Patient Records regulations: The Federal rules restrict any use of the information to criminally investigate or prosecute any alcohol or drug abuse patient.[facility] HospitalIn the event this information is protected by the Federal Confidentiality of Alcohol and Drug Abuse Patient Records regulations: The Federal rules restrict any use of the information to criminally investigate or prosecute any alcohol or drug abuse patient.[facility] HospitalIn the event this information is protected by the Federal Confidentiality of Alcohol and Drug Abuse Patient Records regulations: The Federal rules restrict any use of the information to criminally investigate or prosecute any alcohol or drug abuse patient.[facility] HospitalIn the event this information is protected by the Federal Confidentiality of Alcohol and Drug Abuse Patient Records regulations: The Federal rules restrict any use of the information to criminally investigate or prosecute any alcohol or drug abuse patient.[facility] HospitalIn the event this information is protected by the Federal Confidentiality of Alcohol and Drug Abuse Patient Records regulations: The Federal rules restrict any use of the information to criminally investigate or prosecute any alcohol or drug abuse patient.[facility] HospitalIn the event this information is protected by the Federal Confidentiality of Alcohol and Drug Abuse Patient Records regulations: The Federal rules restrict any use of the information to criminally investigate or prosecute any alcohol or drug abuse patient.[facility] HospitalIn the event this information is protected by the Federal Confidentiality of Alcohol and Drug Abuse Patient Records regulations: The Federal rules restrict any use of the information to criminally investigate or prosecute any alcohol or drug abuse patient.[facility] HospitalIn the event this information is protected by the Federal Confidentiality of Alcohol and Drug Abuse Patient Records regulations: The Federal rules restrict any use of the information to criminally investigate or prosecute any alcohol or drug abuse patient.[facility] HospitalIn the event this information is protected by the Federal Confidentiality of Alcohol and Drug Abuse Patient Records regulations: The Federal rules restrict any use of the information to criminally investigate or prosecute any alcohol or drug abuse patient.[facility] HospitalIn the event this information is protected by the Federal Confidentiality of Alcohol and Drug Abuse Patient Records regulations: The Federal rules restrict any use of the information to criminally investigate or prosecute any alcohol or drug abuse patient.[facility] HospitalIn the event this information is protected by the Federal Confidentiality of Alcohol and Drug Abuse Patient Records regulations: The Federal rules restrict any use of the information to criminally investigate or prosecute any alcohol or drug abuse patient.[facility] HospitalIn the event this information is protected by the Federal Confidentiality of Alcohol and Drug Abuse Patient Records regulations: The Federal rules restrict any use of the information to criminally investigate or prosecute any alcohol or drug abuse patient.[facility] HospitalIn the event this information is protected by the Federal Confidentiality of Alcohol and Drug Abuse Patient Records regulations: The Federal rules restrict any use of the information to criminally investigate or prosecute any alcohol or drug abuse patient.[facility] HospitalIn the event this information is protected by the Federal Confidentiality of Alcohol and Drug Abuse Patient Records regulations: The Federal rules restrict any use of the information to criminally investigate or prosecute any alcohol or drug abuse patient.[facility] Reason for Visit (unrecogniz ed section and content) Reason Comments Refill Request Reason Comments Insulin Dependent Diabetes Mellitus Reason Comments PA Tesiba 200 Units/mL Reason Comments Results Reason Comments Insulin Dependent Diabetes Mellitus Reason Comments Justowriter Operator - Other Reason Comments Abdominal Pain Specialty Diagnoses / Procedures Referred By Moira t Referred To Contact Gastroenterology Diagnoses Gastroesophageal reflux disease without esophagitis Diverticulosis Procedures CONSULT TO GASTROENTEROLOGY OFFICE/OUTPATIENT [facility] MDM 60-74 MINUTES Mary Kate Barber, SEWER MAINTENANCE SUPERVISOR.MANAGER NEWS [address] [address] Referral ID Status Reason Start Date Expiration Date Visits Requested Visits Authorized [id number] Pending Review PCP Requested Referral 08/04/2022 08/04/2023 1 1 Reason Comments Orders Reason Comments Medication Question Reason Onset Date Comments Refill Request 03/02/2023 Reason Onset Date Comments Refill Request 03/10/2023 Reason Comments Appointment Reason Comments Orders ak HFC appt contact Reason Comments CHF New Patient Remote HF Follow Up Reason Comments Orders Reason Comments Established Patient Follow-Up Reason Comments Breathing Problem Leg Edema CHF Reason Comments Patient Update Reason Onset Date Comments Refill Request 06/13/2023 Reason Comments CARD New Patient Consult 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 re-establ 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 abnormal echo Reason Onset Date Comments Refill Request 07/13/2023 Reason Onset Date Comments Refill Request 08/01/2023 Reason Comments PA--Tresiba Flextouch U-200 Reason Comments Med Change Request Reason Comments Returning Patient's Call Reason Comments Follow Up Reason Onset Date Comments Refill Request 01/14/2024 Reason Comments Blurred Vision Both Eyes Reason Comments Shortness of Breath Reason Comments Quantity Switch Reason Onset Date Comments Refill Request 05/03/2024 Reason Comments Dry Eye Syndrome Follow Up Reason Comments Follow Up Reason Comments PA--Mounjaro 2.5mg/0.5ml AND 5mg/0.5ml Reason Comments Follow Up Insulin Dependent Diabetes Mellitus Reason Comments Appointment Conflict Reason Onset Date Comments Refill Request 10/19/2024 Reason Comments Radiology XR right shoulder pain Specialty Diagnoses / Procedures Referred By Moira jo Referred To Contact XR IMAGING Diagnoses Pain Procedures XR SHOULDER GENERAL 3V OR MORE AP/TRUE AP/OTHER RIGHT RADEX SHOULDER COMPLETE MINIMUM 2 VIEWS Lilia Obregon PA-C [address] [place] [address] Xr Imaging [place] [address] Referral ID Status Reason Start Date Expiration Date V isits Requested Visits Authorized [id number] Closed Auto-Generate d Referral 09/25/2024 10/25/2025 1 1 Reason Comments New Pain Reason Comments Breathing Problem Reason Comments Appointment Please call pt after 130 tomorrow Reason Comments Follow Up c/o right chest pain -pressure 04/24, went to ER 3 weeks ago for cp, review labs Reason Comments Consult LARGE CYST ON L ARM Reason Comments Follow Up Established Patient Insulin Dependent Diabetes Mellitus Reason Comments Rash left leg x 2 hours, itching and burning Reason Comments PA--GLUCOSE TEST STRIPS Reason Comments Consult Soft Tissue Mass, Le ft Arm Reason Comments Follow Up Biopsy, left Arm Reason Comments Radiology [place] Specialty Diagnoses / Procedures Referred By Contac t Referred To Contact MOLECULAR & FUNCTIONAL IMAGING Diagnoses 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) Procedures NM CARDIAC PERF STRESS/PHARM MYOCARDIAL SPECT MULTIPLE STUDIES Yared Dodd MD [address] [place] [address] Phone: tel: fax: [facility] [address] [place] [address] Phone: tel: Referral ID Status Reason Start Date Expiration Date V isits Requested Visits Authorized [id number] Closed Auto-Generate d Referral 02/02/2025 11/14/2025 2 2 Reason Comments Cardiology Follow Up Up to cad Reason Comments Cough Sinus congestion and drainage x2 days Reason Comments Radiology MRI Specialty Diagnoses / Procedures Referred By Moira t Referred To Contact MR IMAGING Diagnoses Left arm pain Procedures MRI LOWER ARM WO/W IVCON LEFT MRI ANY JT UPPER EXTREMITY W/CONTRAST Ashvin Weiner PA-C [address] [place] [address] Phone: tel: fax:[phone] [place] [id number] Referral ID Status Reason Start Date Expiration Date V isits Requested Visits Authorized [id number] Closed Auto-Generate d Referral 03/08/2025 11/14/2025 1 1 Reason Comments Flu Like Symptoms X2 days Reason Comments Fever Viral Syndrome She went to [facility] and P cp has had antibiotics finished the most recent dose yesterday . Shortness of Breath Reason Onset Date Comments Refill Request 05/04/2025 Reason Comments Patient Update Justowriter Operator - Other Reason Comments Follow Up Establish Patient Insulin Dependent Diabetes Mellitus Reason Onset Date Comments Refill Request 06/28/2025 Reason Onset Date Comments Refill Request 07/01/2025 Reason Onset Date Comments Refill Request 07/03/2025 Reason Comments Diarrhea Diarrhea x 3 days Care Teams (unrecognized sec tion and content) Lockstitch Waistband Setter Relationship Specialty Start Date End Date David Wynn PCP - General Family Practice 08/15/18 Austin Faith (Hist) 02/03/17 Deedee Mayfield, DO Referring Family Practice 11/12/17 Lockstitch Waistband Setter Relationship Specialty Start Date End Date David Wynn PCP - General Family Practice 08/15/18 Austin Faith (Hist) 02/03/17 Deedee Mayfield, DO Referring Family Practice 11/12/17 Lockstitch Waistband Setter Relationship Specialty Start Date End Date David Wynn PCP - General Family Practice 08/15/18 [place] Faith (Hist) 02/03/17 Deedee Mayfield, DO Referring Family Practice 11/12/17 Lockstitch Waistband Setter Relationship Specialty Start Date End Date David Wynn PCP - General Family Practice 08/15/18 Austin Faith (Hist) 02/03/17 Deedee Mayfield, DO Referring Family Practice 11/12/17 Lockstitch Waistband Setter Relationship Specialty Start Date End Date David Wynn PCP - General Family Practice 08/15/18 Austin Faith (Hist) 02/03/17 Deedee Mayfield, DO Referring Family Practice 11/12/17 Lockstitch Waistband Setter Relationship Specialty Start Date End Date David Wynn PCP - General Family Practice 08/15/18 Austin Faith (Hist) 02/03/17 Deedee Mayfield, DO Referring Family Practice 11/12/17 Lockstitch Waistband Setter Relationship Specialty Start Date End Date David Wynn PCP - General Family Practice 08/15/18 Austin Faith (Hist) 02/03/17 Deedee Mayfield, DO Referring Family Practice 11/12/17 Lockstitch Waistband Setter Relationship Specialty Start Date End Date David Wynn PCP - General Family Medicine 08/15/18 Austin Faith (Hist) 02/03/17 Deedee Mayfield, DO Referring Family Medicine 11/12/17 Lockstitch Waistband Setter Relationship Specialty Start Date End Date David Wynn PCP - General Family Medicine 08/15/18 Austin Faith (Hist) 02/03/17 Deedee Mayfield, DO Referring Family Medicine 11/12/17 Lockstitch Waistband Setter Relationship Specialty Start Date End Date David Wynn PCP - General Family Medicine 08/15/18 [place] Faith (Hist) 02/03/17 Deedee Mayfield, DO Referring Family Medicine 11/12/17 Lockstitch Waistband Setter Relationship Specialty Start Date End Date David Wynn, DO PCP - General Family Medicine 08/15/18 [place] Faith (Hist) 02/03/17 Deedee Mayfield, DO Referring Family Medicine 11/12/17 Lockstitch Waistband Setter Relationship Specialty Start Date End Date David Wynn, DO PCP - General Family Medicine 08/15/18 [place] Faith (Hist) 02/03/17 Deedee Mayfield, DO Referring Family Medicine 11/12/17 Lockstitch Waistband Setter Relationship Specialty Start Date End Date David Wynn, DO PCP - General Family Medicine 08/15/18 [place] Faith (Hist) 02/03/17 Deedee Mayfield, DO Referring Family Medicine 11/12/17 Lockstitch Waistband Setter Relationship Specialty Start Date End Date David Wynn, DO PCP - General Family Medicine 08/15/18 [place] Faith (Hist) 02/03/17 Deedee Mayfield, DO Referring Family Medicine 11/12/17 Lockstitch Waistband Setter Relationship Specialty Start Date End Date David Wynn, DO PCP - General Family Medicine 08/15/18 [place] Faith (Hist) 02/03/17 Deedee Mayfield, DO Referring Family Medicine 11/12/17 Lockstitch Waistband Setter Relationship Specialty Start Date End Date David Wynn, DO PCP - General Family Medicine 08/15/18 [place] Faith (Hist) 02/03/17 Deedee Mayfield, DO Referring Family Medicine 11/12/17 Lockstitch Waistband Setter Relationship Specialty Start Date End Date David Wynn, DO PCP - General Family Medicine 08/15/18 [place] Faith (Hist) 02/03/17 Deedee Mayfield, DO Referring Family Medicine 11/12/17 Lockstitch Waistband Setter Relationship Specialty Start Date End Date David Wynn, DO PCP - General Family Medicine 08/15/18 [place] Faith (Hist) 02/03/17 Deedee Mayfield, DO Referring Family Medicine 11/12/17 Lockstitch Waistband Setter Relationship Specialty Start Date End Date David Wynn, DO PCP - General Family Medicine 08/15/18 [place] Faith (Hist) 02/03/17 Deedee Mayfield, DO Referring Family Medicine 11/12/17 Lockstitch Waistband Setter Relationship Specialty Start Date End Date David Wynn, DO PCP - General Family Medicine 08/15/18 [place] Faith (Hist) 02/03/17 Deedee Mayfield, DO Referring Family Medicine 11/12/17 Lockstitch Waistband Setter Relationship Specialty Start Date End Date David Wynn, DO PCP - General Family Medicine 08/15/18 [place] Faith (Hist) 02/03/17 Deedee Mayfield, DO Referring Family Medicine 11/12/17 Team Status: Active Member Role Status Dates Dr. David Wynn , DO Family Provider Active Dr. David Wynn , DO Primary Care Provider Active Team Status: Inactive Member Role Status Dates Dr. David Wynn , DO Primary Care Provider Active Yared Dodd MD Attending Provider, Referring Provi rafi Active Team Status: Active Member Role Status Dates Dr. David Wynn DO Primary Care Provider Active Yared Dodd MD Attending Provider, Referring Provi rafi Active Lockstitch Waistband Setter Relationship Specialty Start Date End Date David Wynn DO PCP - General Family Medicine 08/15/18 Austin Faith (Hist) 02/03/17 Deedee Mayfield DO Referring Family Medicine 11/12/17 Lockstitch Waistband Setter Relationship Specialty Start Date End Date David Wynn DO PCP - General Family Medicine 08/15/18 Austin Faith (Hist) 02/03/17 Deedee Mayfield DO Referring Family Medicine 11/12/17 Lockstitch Waistband Setter Relationship Specialty Start Date End Date David Wynn DO PCP - General Family Medicine 08/15/18 Austin Faith (Hist) 02/03/17 Deedee Mayfield DO Referring Family Medicine 11/12/17 Lockstitch Waistband Setter Relationship Specialty Start Date End Date David Wynn DO PCP - General Family Medicine 08/15/18 [place] Faith (Hist) 02/03/17 Deedee Mayfield, Referring Family Medicine 11/12/17 Lockstitch Waistband Setter Relationship Specialty Start Date End Date David Wynn DO PCP - General Family Medicine 08/15/18 [place] Faith (Hist) 02/03/17 Deedee Mayfield DO Referring Family Medicine 11/12/17 Team Status: Inactive Member Role Status Dates Dr. David Wynn DO Primary Care Provider Active Dr. Jose Antonio Manjarrez MD Attending Provider, Referring Pro vider Active Lockstitch Waistband Setter Relationship Specialty Start Date End Date David Wynn DO PCP - General Family Medicine 08/15/18 Austin Faith (Hist) 02/03/17 Deedee Mayfield DO Referring Family Medicine 11/12/17 Lockstitch Waistband Setter Relationship Specialty Start Date End Date David Wynn DO PCP - General Family Medicine 08/15/18 [place] Faith (Hist) 02/03/17 Deedee Mayfield DO Referring Family Medicine 11/12/17 Lockstitch Waistband Setter Relationship Specialty Start Date End Date David Wynn DO PCP - General Family Medicine 08/15/18 [place] Faith (Hist) 02/03/17 Deedee Mayfield DO Referring Family Medicine 11/12/17 Team Status: Inactive Member Role Status Dates Dr. David Wynn DO Primary Care Provider Active Yared Dodd MD Attending Provider, Referring Provi rafi Active Dr. Jose Antonio Manjarrez MD Active Lockstitch Waistband Setter Relationship Specialty Start Date End Date David Wynn DO PCP - General Family Medicine 08/15/18 [place] Faith (Hist) 02/03/17 Deedee Mayfield, Referring Family Medicine 11/12/17 Lockstitch Waistband Setter Relationship Specialty Start Date End Date Daivd Wynn DO PCP - General Family Medicine 08/15/18 [place] Faith (Hist) 02/03/17 Deedee Mayfield, Referring Family Medicine 11/12/17 Lockstitch Waistband Setter Relationship Specialty Start Date End Date David Wynn DO PCP - General Family Medicine 08/15/18 [place] Faith (Hist) 02/03/17 Deedee Mayfield, Referring Family Medicine 11/12/17 Lockstitch Waistband Setter Relationship Specialty Start Date End Date David Wynn DO PCP - General Family Medicine 08/15/18 [place] Faith (Hist) 02/03/17 Deedee Mayfield, Referring Family Medicine 11/12/17 Lockstitch Waistband Setter Relationship Specialty Start Date End Date David Wynn DO PCP - General Family Medicine 08/15/18 [place] Faith (Hist) 02/03/17 Deedee Mayfield, Referring Family Medicine 11/12/17 Lockstitch Waistband Setter Relationship Specialty Start Date End Date David Wynn DO PCP - General Family Medicine 08/15/18 [place] Faith (Hist) 02/03/17 Deedee Mayfield, Referring Family Medicine 11/12/17 Lockstitch Waistband Setter Relationship Specialty Start Date End Date David Wynn DO PCP - General Family Medicine 08/15/18 [place] Faith (Hist) 02/03/17 Deedee Mayfield, Referring Family Medicine 11/12/17 [place] Waistband Setter Relationship Specialty Start Date End Date David Wynn DO PCP - General Family Medicine 08/15/18 [place] Faith (Hist) 02/03/17 Deedee Mayfield, Referring Family Medicine 11/12/17 [place] Waistband Setter Relationship Specialty Start Date End Date David Wynn DO PCP - General Family Medicine 08/15/18 [place] Faith (Hist) 02/03/17 Deedee Mayfield, Referring Family Medicine 11/12/17 [place] Waistband Setter Relationship Specialty Start Date End Date David Wynn, PCP - General Family Medicine 08/15/18 [place] Faith (Hist) 02/03/17 Deedee Mayfield, Referring Family Medicine 11/12/17 [place] Waistband Setter Relationship Specialty Start Date End Date David Wynn DO PCP - General Family Medicine 08/15/18 [place] Faith (Hist) 02/03/17 Deedee Mayfield, Referring Family Medicine 11/12/17 [place] Waistband Setter Relationship Specialty Start Date End Date David Wynn DO PCP - General Family Medicine 08/15/18 [place] Faith (Hist) 02/03/17 Deedee Mayfield, Referring Family Medicine 11/12/17 [place] Waistband Setter Relationship Specialty Start Date End Date David Wynn DO PCP - General Family Medicine 08/15/18 [place] Faith (Hist) 02/03/17 Deedee Mayfield, Referring Family Medicine 11/12/17 [place] Waistband Setter Relationship Specialty Start Date End Date David Wynn DO PCP - General Family Medicine 08/15/18 [place] Faith (Hist) 02/03/17 Deedee Mayfield DO Referring Family Medicine 11/12/17 [place] Waistband Setter Relationship Specialty Start Date End Date David Wynn DO PCP - General Family Medicine 08/15/18 [place] Faith (Hist) 02/03/17 Deedee Mayfield, Referring Family Medicine 11/12/17 [place] Waistband Setter Relationship Specialty Start Date End Date David Wynn DO PCP - General Family Medicine 08/15/18 [place] Faith (Hist) 02/03/17 Deedee Mayfield, Referring Family Medicine 11/12/17 [employer] Waistband Setter Relationship Specialty Start Date End Date David Wynn DO PCP - General Family Medicine 08/15/18 [place] Faith (Hist) 02/03/17 Deedee Mayfield, Referring Family Medicine 11/12/17 [place] Waistband Setter Relationship Specialty Start Date End Date David Wynn DO PCP - General Family Medicine 08/15/18 [place] Faith (Hist) 02/03/17 Deedee Mayfield, Referring Family Medicine 11/12/17 [place] Waistband Setter Relationship Specialty Start Date End Date David Wynn DO PCP - General Family Medicine 08/15/18 [place] Faith (Hist) 02/03/17 Deedee Mayfield DO Referring Family Medicine 11/12/17 [employer] Waistband Setter Relationship Specialty Start Date End Date David Wynn DO PCP - General Family Medicine 08/15/18 [place] Faith (Hist) 02/03/17 Deedee Mayfield DO Referring Family Medicine 11/12/17 [employer] Waistband Setter Relationship Specialty Start Date End Date David Wynn DO PCP - General Family Medicine 08/15/18 [place] Faith (Hist) 02/03/17 Deedee Mayfield, Referring Family Medicine 11/12/17 [place] Waistband Setter Relationship Specialty Start Date End Date David Wynn DO PCP - General Family Medicine 08/15/18 [place] Faith (Hist) 02/03/17 Deedee Mayfield DO Referring Family Medicine 11/12/17 [employer] Waistband Setter Relationship Specialty Start Date End Date David Wynn DO PCP - General Family Medicine 08/15/18 [place] Faith (Hist) 02/03/17 Deedee Mayfield, Referring Family Medicine 11/12/17 [employer] Waistband Setter Relationship Specialty Start Date End Date David Wynn DO PCP - General Family Medicine 08/15/18 [place] Faith (Hist) 02/03/17 Deedee Mayfield, Referring Family Medicine 11/12/17 [employer] Waistband Setter Relationship Specialty Start Date End Date David Wynn DO PCP - General Family Medicine 08/15/18 [place] Faith (Hist) 02/03/17 Deedee Mayfield, Referring Family Medicine 11/12/17 [employer] Waistband Setter Relationship Specialty Start Date End Date David Wynn DO PCP - General Family Medicine 08/15/18 [place] Faith (Hist) 02/03/17 Deedee Mayfield, Referring Family Medicine 11/12/17 [place] Waistband Setter Relationship Specialty Start Date End Date David Wynn DO PCP - General Family Medicine 08/15/18 [place] Faith (Hist) 02/03/17 Deedee Mayfield, Referring Family Medicine 11/12/17 [place] Waistband Setter Relationship Specialty Start Date End Date David Wynn DO PCP - General Family Medicine 08/15/18 [place] Faith (Hist) 02/03/17 Deedee Mayfield, Referring Family Medicine 11/12/17 [place] Waistband Setter Relationship Specialty Start Date End Date David Wynn DO PCP - General Family Medicine 08/15/18 [place] Faith (Hist) 02/03/17 Deedee Mayfield, Referring Family Medicine 11/12/17 [place] Waistband Setter Relationship Specialty Start Date End Date David Wynn DO PCP - General Family Medicine 08/15/18 [place] Faith (Hist) 02/03/17 Deedee Mayfield, Referring Family Medicine 11/12/17 [employer] Waistband Setter Relationship Specialty Start Date End Date David Wynn DO PCP - General Family Medicine 08/15/18 [place] Faith (Hist) 02/03/17 Deedee Mayfield, Referring Family Medicine 11/12/17 [place] Waistband Setter Relationship Specialty Start Date End Date David Wynn DO PCP - General Family Medicine 08/15/18 [place] Faith (Hist) 02/03/17 Deedee Mayfield DO Referring Family Medicine 11/12/17 [employer] Waistband Setter Relationship Specialty Start Date End Date David Wynn DO PCP - General Family Medicine 08/15/18 [place] Faith (Hist) 02/03/17 Deedee Mayfiled, Referring Family Medicine 11/12/17 [employer] Waistband Setter Relationship Specialty Start Date End Date David Wynn DO PCP - General Family Medicine 08/15/18 [place] Faith (Hist) 02/03/17 Deedee Mayfield, Referring Family Medicine 11/12/17 [employer] Waistband Setter Relationship Specialty Start Date End Date David Wynn DO PCP - General Family Medicine 08/15/18 [place] Faith (Hist) 02/03/17 Deedee Mayfield, Referring Family Medicine 11/12/17 [place] Waistband Setter Relationship Specialty Start Date End Date David Wynn DO PCP - General Family Medicine 08/15/18 [place] Faith (Hist) 02/03/17 Deedee Mayfield, Referring Family Medicine 11/12/17 [employer] Waistband Setter Relationship Specialty Start Date End Date David Wynn DO PCP - General Family Medicine 08/15/18 [place] Faith (Hist) 02/03/17 Deedee Mayfield, Referring Family Medicine 11/12/17 [place] Waistband Setter Relationship Specialty Start Date End Date David Wynn DO PCP - General Family Medicine 08/15/18 [place] Faith (Hist) 02/03/17 Deedee Mayfield, Referring Family Medicine 11/12/17 [place] Waistband Setter Relationship Specialty Start Date End Date David Wynn DO PCP - General Family Medicine 08/15/18 [place] Faith (Hist) 02/03/17 Deedee Mayfield, Referring Family Medicine 11/12/17 [employer] Waistband Setter Relationship Specialty Start Date End Date David Wynn DO PCP - General Family Medicine 08/15/18 [place] Faith (Hist) 02/03/17 Deedee Mayfield, Referring Family Medicine 11/12/17 [place] Waistband Setter Relationship Specialty Start Date End Date David Wynn DO PCP - General Family Medicine 08/15/18 [place] Faith (Hist) 02/03/17 Deedee Mayfield, Referring Family Medicine 11/12/17 [place] Waistband Setter Relationship Specialty Start Date End Date David Wynn DO PCP - General Family Medicine 08/15/18 [place] Faith (Hist) 02/03/17 Deedee Mayfield, Referring Family Medicine 11/12/17 [place] Waistband Setter Relationship Specialty Start Date End Date David Wynn DO PCP - General Family Medicine 08/15/18 [place] Faith (Hist) 02/03/17 Deedee Mayfield, Referring Family Medicine 11/12/17 [place] Waistband Setter Relationship Specialty Start Date End Date David Wynn DO PCP - General Family Medicine 08/15/18 [place] Faith (Hist) 02/03/17 Deedee Mayfield, Referring Family Medicine 11/12/17 [employer] Waistband Setter Relationship Specialty Start Date End Date David Wynn DO PCP - General Family Medicine 08/15/18 [place] Faith (Hist) 02/03/17 Deedee Mayfield DO Referring Family Medicine 11/12/17 [employer] Waistband Setter Relationship Specialty Start Date End Date David Wynn DO PCP - General Family Medicine 08/15/18 [place] Faith (Hist) 02/03/17 eDedee Mayfield, DO Referring Family Medicine 11/12/17 [employer] Waistband Setter Relationship Specialty Start Date End Date David Wynn DO PCP - General Family Medicine 08/15/18 [place] Faith (Hist) 02/03/17 Deedee Mayfield, DO Referring Family Medicine 11/12/17 [employer] Waistband Setter Relationship Specialty Start Date End Date David Wynn DO PCP - General Family Medicine 08/15/18 [place] Faith (Hist) 02/03/17 Deedee Mayfield, Referring Family Medicine 11/12/17 [employer] Waistband Setter Relationship Specialty Start Date End Date David Wynn DO PCP - General Family Medicine 08/15/18 [place] Faith (Hist) 02/03/17 Deedee Mayfield, Referring Family Medicine 11/12/17 [place] Waistband Setter Relationship Specialty Start Date End Date David Wynn DO PCP - General Family Medicine 08/15/18 [place] Faith (Hist) 02/03/17 Deedee Mayfield DO Referring Family Medicine 11/12/17 [place] Waistband Setter Relationship Specialty Start Date End Date David Wynn DO PCP - General Family Medicine 08/15/18 [place] Faith (Hist) 02/03/17 Deedee Mayfield, Referring Family Medicine 11/12/17 [place] Waistband Setter Relationship Specialty Start Date End Date David Wynn DO PCP - General Family Medicine 08/15/18 [place] Faith (Hist) 02/03/17 Deedee Mayfield DO Referring Family Medicine 11/12/17 [employer] Waistband Setter Relationship Specialty Start Date End Date David Wynn DO PCP - General Family Medicine 08/15/18 [place] Faith (Hist) 02/03/17 Deedee Mayfield DO Referring Family Medicine 11/12/17 Care Team (unrecognized sect ion and content) Personnel Name: DAVID WYNN DO Address: Address: [address] [place] [address] Physicians [place], [place] [address] Name: James De La Paz PT Care Team Personnel Name: James De La Paz [place] PT Position: P3 Scheduling - Commercial Lending Relationship Manager Advanced Member Role: Other Name: KINGSLEY, DAVID DO Position: P4 Physician - Primary Care Member Role: Primary Care Physician Address: Address: [address] [place] [id number]- Care Team Related Persons Name: ROMAIN PASCAL Address: [address] [place], [place] [id number] [place] Care Team Personnel Name: James De La Paz Clerk Vivian PT Position: P3 Scheduling - Commercial Lending Relationship Manager Advanced Member Role: Other Name: DAVID WYNN DO Position: P4 Physician - Primary Care Member Role: Primary Care Physician Address: Address: [address] [place] [address]- Care Team Related Persons Name: ROMAIN PASCAL Address: [address] [place], [place] [id number] [place] Care Team Personnel Name: Ana Cristina, Spanish Tutor Vivian PT Position: P3 Scheduling - Commercial Lending Relationship Manager Advanced Member Role: Other Name: DAVID WYNN DO Position: P4 Physician - Primary Care Member Role: Primary Care Physician Address: Address: [address] [place] [address]- Care Team Related Persons Name: ROMAIN PASCAL Address: [address] [place], [place] [id number] [place] Goals (unrecognized section and content) Goals may be documented in a n alternate section INFORMATION SOURCE (unrecogn ized section and content) DATE CREATED AUTHOR 08/20/2023 [facility] DATE CREATED AUTHOR AUTHOR'S ORGANIZ ATION 07/03/2024 [facility] ([place]) DATE CREATED AUTHOR AUTHOR'S ORGANIZ ATION 12/07/2024 [facility] DATE CREATED AUTHOR AUTHOR'S ORGANIZ ATION 05/07/2025 [facility] DATE CREATED AUTHOR AUTHOR'S ORGANIZ ATION 05/09/2025 [facility] DATE CREATED AUTHOR AUTHOR'S ORGANIZ ATION 06/30/2025 [facility] Inactive Administered Medications - up to 3 most recent administrations Administered Medications (un recognized section and content) Medication Order MAR Action Action Date Dose Rate Site PHENYLephrine 2.5 % 1 Drop (AK-DILATE, MOISES-SYNEPHRINE) 1 Drop, BOTH EYES, DIRECTED, Starting on Wed02/23/24 at 1500, Until Wed02/24/24 at 0259, Administer for dilation PROTECT FROM LIGHT, [facility]HT CLINIC MED ORDERS Given 02/23/2024 2:30 PM EDT 1 Drop proparacaine 0.5 % 1 Drop (ALCAINE) 1 Drop, BOTH EYES, DIRECTED, Starting on Wed02/23/24 at 1500, Until Wed02/24/24 at 0259, Administer for pneumo tonometry, tonopen tonometry, or pachymetry. In the event of a proparacaine shortage, administer tetracaine 0.5% ophthalmic drops 1 drop in both eyes as directed for pneumo tonometry, tonopen tonometry, or pachymetry, [facility] CLINIC MED ORDERS Given 02/23/2024 2:30 PM EDT 1 Drop tropicamide 1 % 1 Drop (MYDRIACYL) 1 Drop, BOTH EYES, DIRECTED, Starting on Wed02/23/24 at 1500, Until Wed02/24/24 at 0259, Administer for dilation, [facility]HT CLINIC MED ORDERS Given 02/23/2024 2:30 PM EDT 1 Drop FOR RECORDS PERTAINING TO PATIENTS WHO ARE OR HAVE BEEN ENROLLED IN A CHEMICAL DEPENDENCY/SUBSTANCEABUSE PROGRAM, SOME INFORMATION MAY BE OMITTED. This clinical summary was aggregated from multiple sources. Caution should be exercised in using it in the provision of clinical care. This summary normalizes information from multiple sources, and as a consequence, information in this document may materially change the coding, format and clinical context of patient data. In addition, data may be omitted in some cases. CLINICAL DECISIONS SHOULD BE BASED ON THE PRIMARY CLINICAL RECORDS. [facility] [employer] [facility]. provides no warranty or guarantee of the accuracy or completeness of information in this document.
[2025-07-08 23:08] LABS: AST(SGOT) 16 U/L (<=31); Alanine Aminotransfer ALT/SGPT 14 U/L (<=34); Albumin, Serum 4.1 g/dL (3.4-4.8); Alkaline Phosphatase 60 U/L (35-104); Anion Gap 14 (5-15); BUN 16 mg/dL (4-19); BUN/Creat Ratio 18.0 RATIO (10-20); Calcium,Total 9.2 mg/dL (7.6-11.0); Carbon Dioxide 19.5 mmol/L (21.0-32.0); Chloride 107 mmol/L (98-108); Globulin 3.0 g/dL (2.2-4.2); Glucose 84 mg/dL (70-99); Lipase 11 U/L (13-75); Potassium 3.3 mmol/L (3.3-5.1)
[2025-07-08 23:47] VITALS: BP 92/57; PULSE 87; RESP 20; TEMP 36.9; O2SAT 100; BMI 32.8
[2025-07-09 00:13] VITALS: BP 104/51; PULSE 87; RESP 20; TEMP 36.9; O2SAT 100
[2025-07-09 00:35] LABS: Mucous, Urine 0 SEEN /hpf (<or=2+); Red Blood Cells-Urine 0 SEEN /hpf (0-5)
[2025-07-09 00:37] LABS: Color, Urine Yellow (Yellow); Glucose, Dipstick 250 mg/dl (Normal); Ketone-Dipstick 5 mg/dl (Negative); Leukocyte Esterase-Dipstick 500 /ul (Negative); Nitrite-Dipstick Negative (Negative); Occult Blood-Urine 10 /ul (Negative); Protein-Dipstick 30 mg/dl (Negative); Specific Gravity, Urine 1.010 (1.002-1.030); Urine Bilirubin Dipstick Negative (Negative)
[2025-07-09 01:11] LABS: Squamous Epithelial Cells - UA 25-50 SEEN /hpf (5-10); Transitional Epithelial - Ur 0-5 SEEN /hpf (0-5)
== END 2025-07-09 00:19 | disposition home or self-care (01) ==
PROVIDERS: Emergency Provider Emergency Medicine; PCP Preventive Medicine Occupational Medicine; Visit Provider Emergency Medicine
DX: K52.9 Noninfective gastroenteritis and colitis, unspecified (principal); I11.0 Hypertensive heart disease with heart failure; I50.22 Chronic systolic (congestive) heart failure; E11.9 Type 2 diabetes mellitus without complications; Z79.4 Long term (current) use of insulin; E78.5 Hyperlipidemia, unspecified; G47.33 Obstructive sleep apnea (adult) (pediatric); Z79.82 Long term (current) use of aspirin; Z79.02 Long term (current) use of antithrombotics/antiplatelets; Z79.899 Other long term (current) drug therapy; Z90.49 Acquired absence of other specified parts of digestive tract; I25.2 Old myocardial infarction
CPT/HCPCS: 74177; 80053; 81001; 83630; 83690; 85025; 87177; 87209; 87493; 87506; 96360; 96361; 99284; Q9967; A4216